=== PATIENT | male | born 1935 | race Caucasian/White ===

== ENCOUNTER 2016-04-29 09:15 | Day surgery (SDC) | payer BC, OTHER ==
[2016-04-23 14:06] VITALS: BMI 25.0
--- NOTE | 2016-04-23 14:46 | PAT Medication Instructions ---
Service Date Apr 23, 2016. Current Home Medication List Allopurinol (Zyloprim), 150 MG PO QAM Amlodipine (Norvasc), 10 MG PO QAM Aspirin (Aspirin Ec), 81 MG PO QAM Atorvastatin (Lipitor), 80 MG PO QAM Brimonidine Tartrate-Timolol M (Combigan), 1 DROP OPB BID Carvedilol (Coreg), 1 TAB PO BID Glipizide (Glipizide Er), 5 MG PO QAM Hydralazine HCl (Hydralazine HCl), 50 MG PO TID Insulin Aspart (Novolog Flexpen), SLIDING SCALE Insulin Glargine (Lantus Solostar), 12 UNITS SQ QAM Isosorbide Mononitrate Ext Rel (Imdur Ext Rel), 1 TAB PO QAM Levothyroxine Sodium (Levothyroxine Sodium), 1 TAB PO QAM Metolazone (Metolazone), 5 MG PO QAM Ocuvite Preservision (Ocuvite Preservision), 1 TAB PO DAILY Pantoprazole (Protonix), 40 MG PO DAILY Polyethylene Glycol 3350 (Miralax), 17 GM PO DAILY PRN for prn Travoprost (Travatan Z), 1 DROPS OP HS Warfarin Sod (Jantoven), 2.5 MG PO 3XWEEK Warfarin Sod (Jantoven), 1.25 MG PO 4XWEEK Medication Instructions For Your Scheduled Surgery - Instructions to be given by surgeon: Warfarin Sod (Jantoven), 2.5 MG PO 3XWEEK Warfarin Sod (Jantoven), 1.25 MG PO 4XWEEK - Hold the following medications the morning of surgery: Glipizide (Glipizide Er), 5 MG PO QAM Polyethylene Glycol 3350 (Miralax), 17 GM PO DAILY PRN for prn Metolazone (Metolazone), 5 MG PO QAM Ocuvite Preservision (Ocuvite Preservision), 1 TAB PO DAILY Insulin Aspart (Novolog Flexpen), SLIDING SCALE - Take the following medications the morning of surgery with a sip of water: Allopurinol (Zyloprim), 150 MG PO QAM Amlodipine (Norvasc), 10 MG PO QAM Aspirin (Aspirin Ec), 81 MG PO QAM Atorvastatin (Lipitor), 80 MG PO QAM Brimonidine Tartrate-Timolol M (Combigan), 1 DROP OPB BID Carvedilol (Coreg), 1 TAB PO BID Isosorbide Mononitrate Ext Rel (Imdur Ext Rel), 1 TAB PO QAM Levothyroxine Sodium (Levothyroxine Sodium), 1 TAB PO QAM Pantoprazole (Protonix), 40 MG PO DAILY Hydralazine HCl (Hydralazine HCl), 50 MG PO TID - Take the following medications as scheduled the night before surgery: Brimonidine Tartrate-Timolol M (Combigan), 1 DROP OPB BID Carvedilol (Coreg), 1 TAB PO BID Travoprost (Travatan Z), 1 DROPS OP HS Polyethylene Glycol 3350 (Miralax), 17 GM PO DAILY PRN for prn Hydralazine HCl (Hydralazine HCl), 50 MG PO TID Insulin Aspart (Novolog Flexpen), SLIDING SCALE - For Insulin Dependent Diabetic patients: Test blood sugar A.M. of surgery. - If Blood Sugar is GREATER THAN 150, take HALF of your regular dose of: Insulin Glargine (Lantus Solostar) - If Blood Sugar is LESS THAN 150, do not take any: Insulin Glargine ( Lantus Solostar) If you have any questions please call us at [phone] (Caryn Aleman PA-C) or [phone] or [phone]
--- NOTE | 2016-04-23 15:33 | DIAGNOSTIC IMAGING REPORT ---
CHEST 2 VIEWS ROUTINE HISTORY: Preop. COMPARISON: Chest 09/19/2015. FINDINGS: The heart remains mildly enlarged. Right jugular catheter terminates in the SVC. Left-sided dual-chamber pacemaker/defibrillator. No pneumothorax. No pleural effusions. Bilateral mid to lower lung zone interstitial thickening has improved. No new focal lung consolidations. IMPRESSION: 1. Improvement in the bilateral mid to lower lung zone interstitial thickening. This could represent residual congestive change or chronic interstitial lung disease. 2. Stable mild cardiomegaly. Electronically signed by: Jose G Rodriguez M.D. 04/23/2016 3:31 PM
[2016-04-23 15:36] LABS: BASO % 0.4 %; BASO ABS # 0.03 K/uL (0-0.2); COMPLETE YES; EOS % 5.6 %; HEMATOCRIT 39.2 % (42-52); IG% 0.4 %; LYMPH % 31.5 %; LYMPH ABS # 2.25 K/uL (1.2-3.4); MEAN CELL VOLUME 102.9 fL (80-100); MEAN CORPUSCULAR HEMOGLOBIN 35.2 pg (25-34); MEAN CORPUSCULAR HGB CONC 34.2 g/dl (32-36); MONO % 8.1 %; PLATELET COUNT 181 K/uL (130-400); RED BLOOD COUNT 3.81 M/uL (4.7-6.1); WHITE BLOOD COUNT 7.14 K/uL (4.8-10.8)
[2016-04-23 15:46] LABS: INR 2.4 (0.9-1.1); PARTIAL THROMBOPLASTIN RATIO 1.5; PROTHROMBIN TIME (PATIENT) 26.4 SECONDS (9.0-12.0)
[2016-04-23 16:10] LABS: CALCIUM 9.1 mg/dl (8.5-10.1); CREATININE 5.7 mg/dl (0.60-1.40); POTASSIUM 3.9 mmol/L (3.5-5.1)
[~2016-04-29] VITALS: Ht 180.3 cm; Wt 83.3 kg
--- NOTE | 2016-04-29 06:12 | History and Physical ---
History & Physical Chief Complaint: End stage renal disease History of Present Illness The patient is a 80 year old male with multiple medical problems, He had a wrist fistula done in the past which did not mature enough to be useable. Now admitted for creation of a new fistula. Allergies Coded Allergies: No Known Allergies (Unverified , 08/25/15) Surgical / Medical History Hx Cardiac Surgery: Yes (AICD) Hx Abdominal Surgery: No Hx Cancer Surgery: No Hx Thoracic Surgery: No Hx Orthopedic: Yes (Broken arm) Hx Urinary Tract Surgery: No HX Other Surgery: Yes (esophageal surgery, ) Past Medical/Surgical History: Kidney Disease Family History No significant family history Social History Smoking Status: Never Smoker Hx Tobacco Use In Past Year?: No Hx Alcohol Use - Type & Amnt: Yes (OCC BEER ) Hx Substance Use -Type & Amnt: No Review of Systems Constitutional: No chills, No fever, No malaise Skin: No change in color Eyes: No visual changes ENMT: No sore throat Respiratory:, No SOB or cough, No hemoptysis Cardiovascular: + edema, No chest pain, No intermittent claudication, No palpitations Gastrointestinal: No abdominal pain, No nausea, No vomiting Neurologic: No dizziness, No headache Physical Exam: Constitutional: General Apperance: well-nourished, well-developed, too thin Level of Distress: NAD, acutely ill, chronically ill Psychiatric: Mental Status: active & alert, normal mood, normal affect Orientation: oriented except where noted, to time, to place, to person Memory: recent memory abnormal, remote memory abnormal (vague, poor historian) Head: normocephalic, atraumatic Eyes: EOM: EOMI ENMT: normal ENT inspection, hearing grossly normal Neck: supple, trachea midline Lungs: Respiratory effort: dyspneic, tachypneic Auscultation: breath sounds normal, no expiratory wheezing, wet rales/ crackles Cardiovascular: Apical Impulse: not displaced Heart Auscultation: no murmurs, no rubs, no gallops, pertinent finding ( irregular) Peripheral Pulses: Pulses: full and equal, in all extremities except if noted Bruits: none appreciated Carotid Pulse: normal on the left, normal on the right Brachial Pulses: normal on the left, normal on the right Radial Pulse: normal on the left, normal on the right Ulnar Pulse: normal on the left, normal on the right Femoral Pulse: normal on the left, normal on the right Posterior Tibialis Pulse: decreased on the left, decreased on the right Dorsalis Pedis Pulse: decreased on the left, decreased on the right Abdomen: Bowel Sounds: normal Inspection & Palpation: soft, non-distended, no tenderness, guarding & rebound Musculoskeletal: normal strength (5/5 throughout), normal tone Extremities: Upper Right: no cyanosis, no edema, no varicosities Upper Left: no cyanosis, no edema, no varicosities Lower Right: no cyanosis, no varicosities, no palpable cord, edema, ulcers Lower Left: no cyanosis, no varicosities, no palpable cord, edema, ulcers Neurologic: Cranial Nerves: grossly intact Sensation: grossly intact ASSESSMENT and PLAN: End stage renal disease Plan: Patient admitted for a left antecubital cephalic vein fisutla creation. I have discussed the risks options and benefits of the procedure with the patient. The patient understands the risks options and benefits and agrees to the procedure.
[~2016-04-29 09:15] MED LIST: ALLO300T2 PO; AMLO-114 PO; APR50 PO; ASPI81TA28 PO; ATOR-26 PO; ATROPINE SULFATE 0.1 MG/ML 5ML SYR IV PRN; BRIM0.2S OPB; CARV25TA2 PO; CEFAZOLIN 2000 MG/60 ML D5W IV SCH; EpHEDrine SULFATE INJ 50 MG/ML AMP IV PRN; FENTANYL CITRATE INJ 50 MCG/1 ML 2 ML VIAL IV PRN; GLIP-197 PO; INSDGIPEN SQ; ISOS30TA3 PO; LEVO150T9 PO; MULT-190 PO; NVLGI/PEN; ONDANSETRON INJ 2 MG/ML 2 ML VIAL IV PRN; PANT40TA PO; POLY335019 PO; SODIUM CHLORIDE 0.9% 1000ML 1,000 ML IV SCH; TRAV0.00 OP; WARF2.5T8 PO; ZRX5 PO
[2016-04-29 09:30] VITALS: BP 119/59; PULSE 59; TEMP 36.6; O2SAT 97; Ht 180.3 cm; Wt 83.3 kg
[2016-04-29 10:13] LABS: INR 1.6 (0.9-1.1); PARTIAL THROMBOPLASTIN RATIO 1.3
[2016-04-29 10:22] LABS: BUN/CREATININE RATIO 9.1 (10-20); CALCIUM 8.3 mg/dl (8.5-10.1); CREATININE 4.3 mg/dl (0.60-1.40); POTASSIUM 3.8 mmol/L (3.5-5.1)
--- NOTE | 2016-04-29 10:41 | History & Physical Bridge Note ---
H&P Re-Evaluation Bridge Note: I have examined the patient, reviewed the History & Physical and in the interval since the performance of the History & Physical I have noted the following changes of clinical significance: No changes noted
[2016-04-29] MEDS ORDERED: FENTANYL CITRATE INJ 50 MCG/1 ML 2 ML VIAL ONE (10:58)
[2016-04-29] MEDS ORDERED: DEXTROSE 50% 50 ML SYR ONE (11:14)
[2016-04-29] MEDS ORDERED: PROPOFOL IV EMULSION 10 MG/ML 20 ML VIAL IV ONE (11:28)
[2016-04-29] MEDS ORDERED: ETOMIDATE 2 MG/ML 20 ML VIAL IV ONE (11:28)
--- NOTE | 2016-04-29 11:44 | [facility] Post Operative Brief Note ---
Immediate Operative Summary Operative Date Apr 29, 2016. Pre-Operative Diagnosis End-Stage Renal Disease, on Hemodialysis Post-Operative Diagnosis Same as preoperative Procedure(s) Performed Left Antecubital Cephalic Vein Arteriovenous Fistula Creation Surgeon Dr. Valeriy Dia Getterer Surgeon(s) Galilea Ha PA-C Estimated Blood Loss 10 Findings good thrill Specimens None per surgeon Anesthesia MAC Complication(s) None Disposition Recovery Room / PACU
[2016-04-29] MEDS ORDERED: EpHEDrine SULFATE 50MG/5ML SYR ONE (11:45)
[2016-04-29] MEDS ORDERED: OXYC-57 PO (11:46)
--- NOTE | 2016-04-29 11:47 | Discharge Instructions ---
Discharge Instructions Visit Reason for Visit: End Stage Renal Disease on Hemodialysis Discharge Discharge Diagnosis / Problem: End stage renal disease Discharge Goals Goal(s): Therapeutic intervention Activity Recommendations Activity Limitations: per Instructions/Follow-up section Anesthesia . Post Anesthesia Instructions: If you have had General Anesthesia or IV Sedation: * Do not drive today. * Resume driving when surgeon permits. * Do not make important decisions or sign legal documents today. * Call surgeon for: 1. Temperature elevations greater than 101 degrees F. 2. Uncontrollable pain. 3. Excessive bleeding. 4. Persistent nausea and vomiting. 5. Medication intolerance (nausea, vomiting or rash). * For nausea and vomiting use only clear liquids such as: tea, soda, bouillon until nausea subsides, then gradually increase diet as tolerated. * If you have any concerns or questions, call your surgeon's office. If physician is unavailable and it is an emergency, call 911 or go to the nearest emergency room. . Instructions / Follow-Up Instructions / Follow-Up Call [phone] to schedule a follow up appointment if one not already scheduled. ACTIVITY RECOMMENDATIONS: See Above SPECIAL CARE INSTRUCTIONS: Call your doctor if: * Temperature above 101 degrees * Pain not relieved by pain medicine ordered * There is increased drainage or redness from any incision * You have any unanswered questions or concerns. Diet Recommendations Recommended Home Diet: resume previous diet Procedures Procedures Performed: Left Antecubital Cephalic Vein Arteriovenous Fistula Creation Pending Studies Studies pending at discharge: no Medical Emergencies . Who to Call and When: Medical Emergencies: If at any time you feel your situation is an emergency, please call 911 immediately. . Non-Emergent Contact Non-Emergency issues call your: Surgeon . . "Provider Documentation" section prepared by Valeriy Dia.
[2016-04-29] MEDS ORDERED: MIX: 0.5% BUPIVACAINE W/EPI 1:200,000+1%LIDO 50:50 INJ ONE (12:06)
[2016-04-29] MEDS ORDERED: HEPARIN SOD (PORCINE) 1000 UNIT/ML 10 ML VIAL FLUSH ONE (12:06)
--- NOTE | 2016-04-29 12:14 | DIAGNOSTIC IMAGING REPORT ---
LEFT ELBOW SINGLE VIEW CLINICAL HISTORY: Incorrect needle count COMPARISON: None. DISCUSSION: There are vascular calcifications present. There are no radiopaque foreign bodies to indicate a retained needle. IMPRESSION: No needles are identified. Electronically signed by: Chris Guthrie M.D. 04/29/2016 12:12 PM
--- NOTE | 2016-04-29 12:38 | Anesthesiology Progress Note ---
Anesthesia Post Op Note Date & Time Apr 29, 2016 at 12:38 Vital Signs Vital Signs Past 12 Hours Date Time Temp Pulse Resp B/P Pulse Ox O2 Delivery O2 Flow Rate FiO2 04/29/16 12:25 62 16 110/52 96 Room Air 04/29/16 12:19 36.8 65 16 104/64 97 Room Air 04/29/16 09:30 36.6 59 20 119/59 97 Room Air 04/29/16 09:30 36.6 59 20 97 Room Air Notes Mental Status: alert / awake / arousable, participated in evaluation Pt Amnestic to Procedure: Yes Nausea / Vomiting: adequately controlled Pain: adequately controlled Airway Patency, RR, SpO2: stable & adequate BP & HR: stable & adequate Hydration State: stable & adequate Anesthetic Complications: no major complications apparent
[2016-04-29 12:45] VITALS: BP 103/54; PULSE 63; TEMP 36.3; O2SAT 95
--- NOTE | 2016-04-29 12:51 | OPERATIVE REPORT ---
DATE OF OPERATION: 04/29/2016 PREOPERATIVE DIAGNOSIS: End-stage renal disease. POSTOPERATIVE DIAGNOSIS: Same. PROCEDURE: Left antecubital cephalic vein arteriovenous fistula creation. SURGEON: Dr. Dia. DINKER: Galilea Hernandez PA-C. ANESTHETIC: MAC. PROCEDURE INDICATIONS: The patient is an 81-year-old gentleman with end-stage renal disease in need of an access. Left antecubital cephalic vein was recommended due to the vein size. He understood the risks, options and benefits and agreed to have this procedure. He did have wrist fistula done in the past which did not mature. The patient understood the risks, options, and benefits and agreed to have this procedure. DESCRIPTION OF PROCEDURE: The patient was taken to the operating room and placed in supine position. After left arm was prepped and draped in a sterile manner, local anesthetic was administered and transverse incision was made just below the antecubital crease. Cephalic vein was identified. It was of good caliber and patent. It was isolated a short distance. The brachial artery was then identified in the incision. It was of good size with minimal atherosclerotic changes. At that point, the artery was clamped proximally and distally. Longitudinal arteriotomy was then made. The vein was ligated distally and then divided. The vein was then anastomosed in an end-to-side fashion to the brachial artery using a running 6-0 Prolene suture in the usual vascular fashion. Prior to completing the closure, backbleeding and forward bleeding was allowed to occur and final few sutures were placed and securely tied. Clamps were then removed. The vein dilated up nicely. We could feel a thrill all the way to approximately 10 cm above the anastomosis. Adequate hemostasis was noted. The wound was closed in the usual fashion using running 3-0 Vicryl suture for the subcutaneous layer and running 4-0 subcuticular Vicryl suture for the skin edges and Dermabond for a dressing. There was a radial artery, ulnar artery and palmar arch Doppler was heard at the end of the procedure and the hand and fingers were pink. Galilea Hernandez assisted due to lack of resident availability. I attest to the content of the Intraoperative Record and any orders documented therein. Any exceptio ns are noted below.
[2016-04-29 13:00] VITALS: BP 105/54; PULSE 62; O2SAT 94
[2016-04-29 13:15] VITALS: BP 111/57; PULSE 62; TEMP 36.1; O2SAT 94
--- NOTE | 2016-04-29 15:34 | Progress Note ---
Progress Note I assisted Dr Dia with Alphonse Morrow's Left Antecubital Cephalic Vein Arteriovenous Fistula Creation on 04/29/16, d/t lack of resident availability.
[2016-05-15] MEDS ORDERED: CNT PO (13:10)
[2016-05-15] MEDS ORDERED: LEVO1TAB35 PO (13:10)
[2016-05-15] MEDS ORDERED: CLC100 PO (13:10)
[2016-05-15] MEDS ORDERED: OXYC-57 PO (13:10)
[2016-05-15] MEDS ORDERED: WARF2.5T8 PO (13:10)
[2016-05-15] MEDS ORDERED: CRG625 PO (13:10)
[2016-05-15] MEDS ORDERED: TYL325X PO (13:10)
[2016-05-15] MEDS ORDERED: TUMS PO (13:10)
[2016-06-12] MEDS ORDERED: CARV6.252 PO (10:53)
[2017-01-22] MEDS ORDERED: [UNRECOGNIZED DRUG - SUPPLY] TOP (11:21)
[2017-01-22] MEDS ORDERED: CALC500C3 PO (11:21)
[2017-01-22] MEDS ORDERED: LEVO175T3 PO (11:21)
[2017-01-22] MEDS ORDERED: NUTR-7 PO (11:21)
[2017-01-22] MEDS ORDERED: LIDO1CRE16 TOP (11:21)
[2017-01-22] MEDS ORDERED: [UNRECOGNIZED DRUG - CODE] TOP (11:21)
[2017-01-22] MEDS ORDERED: GUAI100S75 PO (11:24)
[2017-01-22] MEDS ORDERED: MENTOIN TOP (11:26)
[2017-02-05] MEDS ORDERED: CEPH500C2 PO (09:21)
[2017-03-27] MEDS ORDERED: VANC1INJ94 IV (11:20)
[2017-03-27] MEDS ORDERED: RCL25 PO (11:20)
[2017-03-27] MEDS ORDERED: NUTR-31 PO (11:20)
[2017-03-27] MEDS ORDERED: AMX500 PO (11:20)
[2017-03-27] MEDS ORDERED: OXYC-57 PO (11:20)
[2017-03-27] MEDS ORDERED: WARF1TAB PO (11:20)
== END 2016-04-29 13:45 | disposition home or self-care (01) ==
LOC: C.ACU 09:15
PROVIDERS: ATTEND Surgery Vascular Surgery
DX: N18.6 End stage renal disease (principal); Z79.4 Long term (current) use of insulin

== ENCOUNTER 2016-05-02 23:31 | Inpatient (IN) | payer BC, OTHER ==
[~2016-05-02] VITALS: Ht 180.3 cm; Wt 85.2 kg
[~2016-05-02 23:31] MED LIST changes: -ATROPINE SULFATE 0.1 MG/ML 5ML SYR IV PRN; -CEFAZOLIN 2000 MG/60 ML D5W IV SCH; -EpHEDrine SULFATE INJ 50 MG/ML AMP IV PRN; -FENTANYL CITRATE INJ 50 MCG/1 ML 2 ML VIAL IV PRN; -ONDANSETRON INJ 2 MG/ML 2 ML VIAL IV PRN; +OXYC-57 PO; -SODIUM CHLORIDE 0.9% 1000ML 1,000 ML IV SCH
[2016-05-02] MEDS ORDERED: ONDANSETRON INJ 2 MG/ML 2 ML VIAL IV STA (23:45)
[2016-05-02] MEDS ORDERED: SODIUM CHLORIDE 0.9% 250ML 250 ML IV STA (23:45)
[2016-05-03] VITALS (8 sets, daily range): BP systolic 91–120; BP diastolic 46–74; PULSE 60–67; TEMP 36.5–37.2; O2SAT 92–99; Ht 180.3 cm; Wt 85.2 kg
--- NOTE | 2016-05-03 | EMERGENCY ROOM VISIT NOTE ---
History Report prepared by Prema: Luis Alberto Lai Under the Supervision of: Dr. Sree Cotton M.D. First contact with patient: 23:38 Stated Complaint: FALL/SHOULDER PAIN History of Present Illness The patient is a 81 year old male who presents to the Emergency Room by EMS with complaints of constant right shoulder pain s/p fall occurring just prior to arrival. He did not hit his head or lose consciousness. He denies any chest pain, abdominal pain, back pain, lower arm pain, or neck pain. He notes that his right leg hurts as well after the fall. The patient is on Coumadin. He is a dialysis patient, and receives treatment on Tuesdays, and Saturdays. His most recent dialysis treatment was earlier today. Source of History: patient Onset: just prior to arrival Position: shoulder (right) Timing: constant Associated Symptoms: No LOC, No abdominal pain, No back pain, No chest pain , No headache, No neck pain Note: The patient has associated right leg pain. He denies any arm pain. Review of Systems See HPI for pertinent positives & negatives. A total of 10 systems reviewed and were otherwise negative. Past Medical & Surgical Medical Problems: (1) Acute on chronic systolic (congestive) heart failure (2) Acute renal failure (3) Acute renal failure superimposed on stage 4 chronic kidney disease (4) Altered mental status (5) Atrial fibrillation (6) Cardiorenal syndrome with renal failure (7) Congestive heart failure (8) Diabetes (9) Dysphagia (10) End stage renal disease (11) Ischemic cardiomyopathy Surgical Problems: (1) H/O excision of Zenker's diverticulum Family History No significant family history Social History Smoking Status: Former Smoker Drug Use: none Marital Status: Occupation Status: retired Current/Historical Medications Scheduled Allopurinol (Zyloprim), 150 MG PO QAM Amlodipine (Norvasc), 10 MG PO QAM Aspirin (Aspirin Ec), 81 MG PO QAM Atorvastatin (Lipitor), 80 MG PO QAM Brimonidine Tartrate-Timolol M (Combigan), 1 DROP OPB BID Carvedilol (Coreg), 1 TAB PO BID Glipizide (Glipizide Er), 5 MG PO QAM Hydralazine HCl (Hydralazine HCl), 50 MG PO TID Insulin Aspart (Novolog Flexpen), SLIDING SCALE Insulin Glargine (Lantus Solostar), 12 UNITS SQ QAM Isosorbide Mononitrate Ext Rel (Imdur Ext Rel), 1 TAB PO QAM Levothyroxine Sodium (Levothyroxine Sodium), 1 TAB PO QAM Metolazone (Metolazone), 5 MG PO QAM Ocuvite Preservision (Ocuvite Preservision), 1 TAB PO DAILY Pantoprazole (Protonix), 40 MG PO DAILY Travoprost (Travatan Z), 1 DROPS OP HS Warfarin Sod (Jantoven), 2.5 MG PO 3XWEEK Warfarin Sod (Jantoven), 1.25 MG PO 4XWEEK Scheduled PRN Oxycodone/Acetaminophen 5MG/325MG (Percocet 5MG/325MG), 1 TABLET PO Q4H PRN for Pain Polyethylene Glycol 3350 (Miralax), 17 GM PO DAILY PRN for prn Allergies Coded Allergies: No Known Allergies (Unverified , 04/23/16) Physical Exam Vital Signs Date Time Temp Pulse Resp B/P Pulse Ox O2 Delivery O2 Flow Rate FiO2 05/03/16 01:14 63 18 109/46 98 Nasal Cannula 3.0 05/03/16 00:48 65 18 102/46 97 Nasal Cannula 3.0 05/03/16 00:45 97 Nasal Cannula 3.0 05/03/16 00:45 87 Room Air 05/02/16 23:42 36.5 67 18 98/58 94 Room Air Physical Exam GENERAL: Patient is in no acute distress. HEENT: No acute trauma, normocephalic atraumatic, mucous membranes moist, no nasal congestion, no scleral icterus. NECK: No stridor, no adenopathy, no meningismus, trachea is midline. No posterior cervical spine tenderness or step-off. LUNGS: Clear to auscultation bilaterally, no wheeze, no rhonchi, breath sounds equal. HEART: Without murmurs gallops or rubs, regular rate and rhythm. ABDOMEN: Soft, nontender, bowel sounds positive, no hernias, no peritonitis. EXTREMITIES: Chronic lower extremity skin change without cellulitis. Pain with palpation of the right femur, mostly distally. No gross deformity. Right knee, right ankle and right foot are nontender. Tender to palpate right lateral shoulder and proximal humerus. Right clavicle is nontender, NVI distally in the right upper extremity. NEUROLOGIC: Oriented x 3, no acute motor or sensory deficits, no focal weakness. SKIN: No rash, no jaundice, no diaphoresis. Medical Decision & Procedures ER Provider Diagnostic Interpretation: Two View Right Femur and Two View Pelvis X-rays interpreted by me: Chronic change to the hip and pelvis. No acute fracture. Two View Right Humerus and Two View Right Shoulder X-rays interpreted by me: Right humeral neck fracture without shoulder dislocation. CT results per statrad and my review. CT HEAD: No intracranial hemorrhage, mass effect or calvarial fracture. Ventricles are within limits and midline. Chronic and involutional changes. Visualized paranasal sinuses, mastoids and orbits are within limits. CT C-SPINE: No fracture or malalignment. Multilevel spondylosis/discogenic change and bilateral foraminal stenosis. Osseous fusion C3-4 and partial at C2-3. Bilateral right greater than left heavy carotid calcification and there may be associated luminal stenosis. May follow-up with nonemergent carotid Doppler if not previously evaluated . Tunneled right dialysis catheter and AICD noted. Laboratory Results 05/03/16 00:46 05/03/16 00:46 Test 05/03/16 00:46 05/03/16 02:20 Red Blood Count 3.30 M/uL (4.7-6.1) Mean Corpuscular Volume 102.7 fL (80-100) Mean Corpuscular Hemoglobin 35.5 pg (25-34) Mean Corpuscular Hemoglobin Concent 34.5 g/dl (32-36) RDW Standard Deviation 56.9 fL (36.4-46.3) RDW Coefficient of Variation 15.1 % (11.5-14.5) Mean Platelet Volume 10.0 fL (7.4-10.4) Anion Gap 10.0 mmol/L (3-11) Est Creatinine Clear Calc Drug Dose 15.3 ml/min Estimated GFR () 15.5 Estimated GFR (Non- 13.4 BUN/Creatinine Ratio 9.3 (10-20) Calcium Level 8.4 mg/dl (8.5-10.1) Laboratory results reviewed by me. Medications Administered Medications (Trade) Dose Ordered Sig/Summer Route Start Time Stop Time Status Last Admin Dose Admin Sodium Chloride (Nss 250ml) 250 ml @ 999 mls/hr Q16M STAT IV 05/02/16 23:45 05/03/16 00:00 DC 05/03/16 00:34 999 MLS/HR Morphine Sulfate (MoRPHine SULFATE INJ) 4 mg Q15M PRN IV 05/02/16 23:45 05/16/16 23:44 05/03/16 01:09 4 MG Ondansetron HCl (Zofran Inj) 4 mg NOW STAT IV 05/02/16 23:45 05/02/16 23:49 DC 05/03/16 00:35 4 MG ECG Indication: other (fall) Rate (beats per minute): 91 Rhythm: other (demand pacing with an underlying atrial fibrillation) Findings: PVC, other (significant baseline artifact) ED Course 2338: The patient was evaluated in room A3. A complete history and physical exam was performed. 2345: Ordered Zofran Inj 4 mg IV, Morphine Sulfate 4 mg IV, NSS 250 mL @ 999 mL/ hr IV. 0053: I checked in on the patient. He getting ready to go to CT. 0222: Upon reexamination the patient is resting comfortably. I discussed results and treatment plan with the patient. He verbalizes agreement and understanding. The patient will be evaluated for further management. Medical Decision The patient is a 81 year old male who presents to the ED with complaints of right shoulder pain s/p fall. Differential diagnoses considered include right shoulder fracture/dislocation, intracranial bleeding, cervical spine fracture, pelvis/right humerus fracture, dehydration, dysrhythmia, anemia, and electrolyte imbalance. There is no leukocytosis. The patient is mildly anemic but this is baseline and does not require emergent correction. Renal panel testing shows the need for dialysis, there is no significant electrolyte abnormally requiring correction. EKG shows a demand pacemaker with underlying A. fib, significant artifact on the EKG was noted. Brain CT shows no acute bleed or mass effect. C -spine CT shows no acute fracture. Right shoulder and right humerus films show a humeral neck fracture, no shoulder dislocation. Pelvis and right femur films show some chronic change to the hips and pelvis but I do not see any acute fracture. The patient was placed in a right arm sling. The patient received IV morphine for pain, IV Zofran for nausea. He was given a small dose of IV saline. The patient is more comfortable now that he has been medicated. I talked with him and his . The patient cannot go home with a fractured arm as he needs his arm to walk-he typically uses a walker. I spoke with field nurse case manager. The patient will be brought into the hospital for now, he will likely need to be transferred, once cleared, to a rehabilitation facility. Consults Time Called: 17 Consulting Physician: Dr. Nova JIN Returned Call: [phone] Discussed the patient's case. The patient will be evaluated for further management. Impression Primary Impression: Closed fracture of right proximal humerus Additional Impressions: Right leg pain, Fall Scribe Attestation The scribe's documentation has been prepared under my direction and personally reviewed by me in its entirety. I confirm that the note above accurately reflects all work, treatment, procedures, and medical decision making performed by me. Departure Information Dispostion Being Evaluated By Hospitalist Referrals Vivek Ramirez M.D. (PCP)
[2016-05-03] MEDS: MoRPHine SULFATE 4 MG/ML 1 ML CARP\\VIAL IV PRN ×2 (00:35→01:09)
[2016-05-03 00:57] LABS: HEMATOCRIT 33.9 % (42-52); MEAN CELL VOLUME 102.7 fL (80-100); MEAN CORPUSCULAR HEMOGLOBIN 35.5 pg (25-34); MEAN CORPUSCULAR HGB CONC 34.5 g/dl (32-36); PLATELET COUNT 148 K/uL (130-400); WHITE BLOOD COUNT 10.55 K/uL (4.8-10.8)
[2016-05-03 01:15] LABS: BUN/CREATININE RATIO 9.3 (10-20); CALCIUM 8.4 mg/dl (8.5-10.1); CREATININE 3.9 mg/dl (0.60-1.40); POTASSIUM 4.1 mmol/L (3.5-5.1)
[2016-05-03 02:55] LABS: INR 2.2 (0.9-1.1); PARTIAL THROMBOPLASTIN RATIO 1.9; PROTHROMBIN TIME (PATIENT) 24.1 SECONDS (9.0-12.0)
--- NOTE | 2016-05-03 03:28 | History and Physical ---
History & Physical Date & Time of Service: May 03, 2016 at 03:10 Chief Complaint: Fall/Shoulder Pain Primary Care Physician: Vivek Ramirez M.D. History of Present Illness Source: patient, family 81 y/o male with a broad array of medical issues including systolic CHF (25%), CAD, AF, ESRD - on dialysis - post fistula surgery 04/30 - presents following fall with complaint of persistent R shoulder pain. Imaging in the ER elucidated a R displaced humeral neck fracture. This is nonsurgical per orthopedics however the pt is looked after by his and has limited mobility requiring a cane prior to the above event. He will be admitted therefore for pain management and will likely need placement in a rehab facility. He denies any specific symptoms preceding his fall such as SOB, CP or lightheadedness. He is currently prescribed Coumadin for AF and has an elevated INR on admission. He denies significant head trauma. Past Medical/Surgical History Medical Problems: (1) Altered mental status Status: Chronic (2) Atrial fibrillation Status: Chronic (3) Congestive heart failure Status: Chronic Chronic systolic - EF 20% (4) Diabetes Status: Chronic 5) Pacer/AICD 6) ESRD - dialysis 7) Hypothyroid 8) HTN 9) HPL 10) LGI bleed 11) CAD Fistula at wrist recently failed to mature - additional attempt completed Family History No significant family history Social History Quit smoking 55 years prior - retired form [employer] at [facility] Smoking Status: Former Smoker Drug Use: none Marital Status: Occupational Status: retired Multi-Drug Resistant Organisms History of MDRO: No Allergies Coded Allergies: No Known Allergies (Unverified , 04/23/16) Home Medications Scheduled Allopurinol (Zyloprim), 150 MG PO QAM Amlodipine (Norvasc), 10 MG PO QAM Aspirin (Aspirin Ec), 81 MG PO QAM Atorvastatin (Lipitor), 80 MG PO QAM Brimonidine Tartrate-Timolol M (Combigan), 1 DROP OPB BID Carvedilol (Coreg), 1 TAB PO BID Glipizide (Glipizide Er), 5 MG PO QAM Hydralazine HCl (Hydralazine HCl), 50 MG PO TID Insulin Aspart (Novolog Flexpen), SLIDING SCALE Insulin Glargine (Lantus Solostar), 12 UNITS SQ QAM Isosorbide Mononitrate Ext Rel (Imdur Ext Rel), 1 TAB PO QAM Levothyroxine Sodium (Levothyroxine Sodium), 1 TAB PO QAM Metolazone (Metolazone), 5 MG PO QAM Ocuvite Preservision (Ocuvite Preservision), 1 TAB PO DAILY Pantoprazole (Protonix), 40 MG PO DAILY Travoprost (Travatan Z), 1 DROPS OP HS Warfarin Sod (Jantoven), 2.5 MG PO 3XWEEK Warfarin Sod (Jantoven), 1.25 MG PO 4XWEEK Scheduled PRN Oxycodone/Acetaminophen 5MG/325MG (Percocet 5MG/325MG), 1 TABLET PO Q4H PRN for Pain Polyethylene Glycol 3350 (Miralax), 17 GM PO DAILY PRN for prn Review of Systems Constitutional: No chills, No fever, No sweats Eyes: No worsening of vision ENT: No hearing loss, No nasal symptoms, No unusual epistaxis Respiratory: No cough, No sputum, No wheezing Cardiovascular: No PND, No chest pain, No orthopnea Abdomen: No nausea, No pain, No vomiting Musculoskeletal: + joint pain, + muscle pain, + problem reported (R shoulder pain) Genitourinary - Male: No dysuria, No hematuria, No urinary frequency, No urinary urgency Neurologic: + balance problems (Chronic), No memory loss, No paralysis Psychiatric: No depression symptoms Endocrine: No fatigue Integumentary: No rash Allergic / Immunologic: No environmental allergies Physical Exam Vital Signs Date Time Temp Pulse Resp B/P Pulse Ox O2 Delivery O2 Flow Rate FiO2 05/03/16 02:48 77 18 92 Nasal Cannula 3.0 05/03/16 01:14 63 18 109/46 98 Nasal Cannula 3.0 05/03/16 00:48 65 18 102/46 97 Nasal Cannula 3.0 05/03/16 00:45 97 Nasal Cannula 3.0 05/03/16 00:45 87 Room Air 05/02/16 23:42 36.5 67 18 98/58 94 Room Air General Appearance: WD/WN, no apparent distress, + pertinent finding (Plesent elderly male in no distress - AAO x 3 ) Head: normocephalic, atraumatic Eyes: normal inspection, EOMI ENT: normal ENT inspection, pharynx normal Neck: supple, no JVD Respiratory/Chest: chest non-tender, lungs clear, normal breath sounds, no respiratory distress, no accessory muscle use, + pertinent finding ( Subcutaneous access line L chest) Cardiovascular: regular rate, rhythm, + systolic murmur Abdomen/GI: normal bowel sounds, non tender, soft Extremities/Musculoskelatal: + pertinent finding (pain and swelling R proximal UE - chronic LE stasis / hyperpigmantation - pulses not detectable - adequate capillary return - L anticubital area with bruising and raw-appearing incision due to recent dialysis fistula) Neurologic/Psych: casey saw operator II-XII nml as tested, no motor/sensory deficits, alert, normal mood/affect, normal reflexes, oriented x 3 Skin: + pertinent finding (Chronic LE stasis hyperpigmentation - L anticubital area with bruising and raw-appearing incision due to recent dialysis fistula) Diagnostics Laboratory Results Results Past 24 Hours Test 05/03/16 00:46 05/03/16 02:20 Range/Units White Blood Count 10.55 4.8-10.8 K/uL Red Blood Count 3.30 4.7-6.1 M/uL Hemoglobin 11.7 14.0-18.0 g/dL Hematocrit 33.9 42-52 % Mean Corpuscular Volume 102.7 80-100 fL Mean Corpuscular Hemoglobin 35.5 25-34 pg Mean Corpuscular Hemoglobin Concent 34.5 32-36 g/dl RDW Standard Deviation 56.9 36.4-46.3 fL RDW Coefficient of Variation 15.1 11.5-14.5 % Platelet Count 148 130-400 K/uL Mean Platelet Volume 10.0 7.4-10.4 fL Sodium Level 139 136-145 mmol/L Potassium Level 4.1 3.5-5.1 mmol/L Chloride Level 100 98-107 mmol/L Carbon Dioxide Level 29 21-32 mmol/L Anion Gap 10.0 3-11 mmol/L Blood Urea Nitrogen 36 7-18 mg/dl Creatinine 3.90 0.60-1.40 mg/dl Est Creatinine Clear Calc Drug Dose 15.3 ml/min Estimated GFR () 15.5 Estimated GFR (Non- 13.4 BUN/Creatinine Ratio 9.3 10-20 Random Glucose 132 70-99 mg/dl Calcium Level 8.4 8.5-10.1 mg/dl Prothrombin Time 24.1 9.0-12.0 SECONDS Prothromb Time International Ratio 2.2 0.9-1.1 Activated Partial Thromboplast Time 49.8 21.0-31.0 SECONDS Partial Thromboplastin Ratio 1.9 Diagnostic Radiology XR - R minimally displaced humeral neck Fx XR pelvis negative CT spine negative for acute findings EKG AF, PVCs Impression Assessment and Plan 89 y/o male with a broad array of medical issues including systolic CHF (25%), CAD, AF, ESRD - on dialysis - post fistula surgery 04/30 - presents following fall with complaint of persistent R shoulder pain. Imaging in the ER elucidated a R displaced humeral neck fracture. This is nonsurgical per orthopedics however the pt is looked after by his and has limited mobility requiring a cane prior to the above event. He will be admitted therefore for pain management and will likely need placement in a rehab facility. He denies any specific symptoms preceding his fall such as SOB, CP or lightheadedness. He is currently prescribed Coumadin for AF and has an elevated INR on admission. He denies significant head trauma. 1) R humeral fracture - We will consult ortho to evaluate if this requires reduction although it is likely non-surgical. We will order adequate anelgesia and request a PT and OT eval as he will likely require transfer to a rehab facility 2) CHF - currently euvolemic - cont diuretics, B harry 3) CAD - denies CP - cont ASA, statin, Imdur, B harry 4) DM -,placed on sliding scale in hospital 5) HTN - cont Norvasc, Imdur, Hydralazine, Carvedilol 6) ESRD - will require inpt dialysis Wednesday - consult Nephrology 7) AF - rate controlled - on Coumadin - held due to fall pending AM reassessment - cont Carvedilol 8) Hypothyroid - cont Synthroid 9) Gout - cont Allopurinol Total time for this admit including extensive record review, discussion with ER attending and pt - review of labs, imaging, med rec - 46 min
[2016-05-03] MEDS ORDERED: ALUMINUM/MAGNESIUM/SIMETH (MAALOX MAX) 30 ML UDC PO PRN (03:30)
[2016-05-03] MEDS ORDERED: MAGNESIUM HYDROXIDE SUSP 30 ML UDC PO PRN (03:30)
[2016-05-03] MEDS ORDERED: ONDANSETRON INJ 2 MG/ML 2 ML VIAL IV PRN (03:30)
[2016-05-03] MEDS ORDERED: MoRPHine SULFATE 2 MG/ML CARP IV PRN (03:30)
[2016-05-03] MEDS ORDERED: ZOLPIDEM TARTRATE 5 MG TAB PO PRN (03:30)
[2016-05-03] MEDS ORDERED: OXYCODONE/ACETAMINOPHEN 5-325 TAB PO PRN (03:30)
[2016-05-03] MEDS ORDERED: POLYETHYLENE (MIRALAX) 17 GM PACK PO PRN (03:30)
--- NOTE | 2016-05-03 05:21 | Progress Note ---
Progress Note Called for unresponsive episode which occurred after vomiting and lasted 30 sec When arrived to examine pt he was back at baseline - initially a good BP reading could not be obtained however this was measured at 135/80 in the R forearm - registers very low in his LEs due to PVD As pt is post-fall on Coumadin he will be sent for a repeat CT head - we will transfer to tele to monitor for arrhythmias - most likely Dx is vasovagal however due to vomiting however this would be more likely to occur if there was rising ICP Results are pending - plan discussed with nursing
[2016-05-03] MEDS ORDERED: GLUCAGON FOR INJ 1 MG VIAL SQ PRN (06:00)
[2016-05-03] MEDS ORDERED: DEXTROSE 50% 50 ML SYR IV PRN (06:00)
[2016-05-03] MEDS ORDERED: GLUCOSE 10 TABS/TUBE PO PRN (06:00)
[2016-05-03] MEDS ORDERED: GLUCOSE 40% GEL 15 GM TUBE PO PRN (06:00)
[2016-05-03] MEDS: LEVOTHYROXINE 150 MCG TAB PO SCH (06:29)
--- NOTE | 2016-05-03 06:43 | DIAGNOSTIC IMAGING REPORT ---
HEAD CT NONCONTRAST CT DOSE: 1185.63 mGy.cm HISTORY: fall, on coumadin TECHNIQUE: Multiaxial CT images of the head were performed without the use of intravenous contrast. Automated exposure control was utilized for this study. Comparison: None. Findings: The paranasal sinuses and mastoid air cells are clear. The calvarium and skull base are intact. There is no mass, hematoma, midline shift, acute infarct. White matter hypodensity is nonspecific but suggestive of microvascular ischemic change. The ventricles and sulci demonstrate mild age-related involutional changes. Impression: No acute intracranial abnormality. Atrophy and microvascular ischemic changes. Electronically signed by: Jose G Rodriguez M.D. 05/03/2016 6:42 AM Dictated Date/Time: 05/03/2016 6:40 AM
--- NOTE | 2016-05-03 06:46 | DIAGNOSTIC IMAGING REPORT ---
HEAD CT NONCONTRAST CT DOSE: 614.27 mGy.cm HISTORY: Altered mental status after fall - on coumadin - repeat scan TECHNIQUE: Multiaxial CT images of the head were performed without the use of intravenous contrast. Automated exposure control was utilized for this study. Comparison: Head CT 05/03/2016. Findings: A retention cyst within the right maxillary sinus. Trace fluid within the right frontal sinus. The mastoid air cells are clear. The calvarium and skull base are intact. There is no mass, hematoma, midline shift, acute infarct. White matter hypodensity is nonspecific but suggestive of microvascular ischemic change. The ventricles and sulci demonstrate mild age-related involutional changes. Impression: No significant change compared to the prior study. No acute intracranial abnormality. Electronically signed by: Jose G Rordiguez M.D. 05/03/2016 6:44 AM Dictated Date/Time: 05/03/2016 6:42 AM
--- NOTE | 2016-05-03 06:52 | DIAGNOSTIC IMAGING REPORT ---
CERVICAL SPINE CT CT DOSE: HISTORY: Neck pain. fall, distracting pain TECHNIQUE: Multiaxial CT images of the cervical spine were performed and reformatted in the sagittal and coronal plane without the use of contrast. COMPARISON: None. FINDINGS: No fractures. No subluxation. Prevertebral soft tissues and the C1-C2 interval are intact. No pneumothorax. Mild reversal of the normal lordotic curvature. Fusion of the C2-C4 vertebral bodies and facets. Severe disc space narrowing at C4-C5, C5-C6, and C6-C7 with endplate osteophytes. This results in mild to moderate central canal narrowing at these levels. There is also mild bilateral neural foraminal narrowing seen throughout the cervical spine. Heavily calcified bilateral carotid bifurcation. Right jugular catheter is noted. IMPRESSION: No acute fracture or subluxation within the cervical spine. Degenerative changes as described above. Heavily calcified bilateral carotid bifurcation with probable bilateral internal carotid artery stenosis. Electronically signed by: Jose G Rodriguez M.D. 05/03/2016 6:50 AM Dictated Date/Time: 05/03/2016 6:44 AM
[2016-05-03] MEDS: CEROVITE ADV FORMULA TAB PO SCH (07:57)
[2016-05-03] MEDS: METOLAZONE 5 MG TAB PO SCH (07:58)
[2016-05-03] MEDS: ISOSORBIDE MONONITRATE 30 MG TABCR PO SCH (07:58)
[2016-05-03] MEDS: ATORVASTATIN 40 MG TAB PO SCH (07:58)
[2016-05-03] MEDS: CARVEDILOL 25 MG TAB PO SCH ×2 (07:58→21:00)
[2016-05-03] MEDS: ASPIRIN 81 MG ECTAB PO SCH (07:59)
[2016-05-03] MEDS: ALLOPURINOL 300 MG TAB PO SCH (07:59)
[2016-05-03] MEDS: AMLODIPINE BESYLATE 5 MG TAB PO SCH (07:59)
[2016-05-03] MEDS: PANTOprazole SOD 40 MG TAB PO SCH (07:59)
[2016-05-03] MEDS ORDERED: DOPamine 400MG / 250ML D5W IV ONE (08:21)
[2016-05-03] MEDS ORDERED: SODIUM CHLORIDE 0.9% 10ML FLUSH IV ONE (08:21)
--- NOTE | 2016-05-03 08:43 | DIAGNOSTIC IMAGING REPORT ---
RIGHT SHOULDER MIN 2 VIEWS ROUTINE, RIGHT HUMERUS MIN 2 VIEWS ROUTINE CLINICAL HISTORY: Fall with right shoulder and arm pain. COMPARISON STUDY: None. FINDINGS: Suboptimal study as the patient moved and is limited. There is a right humeral neck fracture which extends through the greater tuberosity humeral head. The fracture is impacted. No dislocation. The distal humerus, right clavicle, and visualized scapula are intact. No definite dislocation. IMPRESSION: An impacted right humeral neck fracture which extends through the greater tuberosity of the humeral head. Electronically signed by: Jose G Rodriguez M.D. 05/03/2016 8:42 AM Dictated Date/Time: 05/03/2016 8:39 AM
--- NOTE | 2016-05-03 08:48 | DIAGNOSTIC IMAGING REPORT ---
PELVIS 1 OR 2 VIEW ROUTINE, RIGHT FEMUR 2 VIEWS ROUTINE CLINICAL HISTORY: Fall. Right hip pain. COMPARISON STUDY: None. FINDINGS: No acute fracture or dislocation within the pelvis or left hip. The sacrum appears intact. Vascular calcifications are noted. The bones are osteopenic. Abnormal appearance and deformity to the right femoral head/neck. IMPRESSION: 1. Abnormal appearance and deformity of the right femoral head/neck. This is consistent with a right femoral neck fracture. 2. No acute fracture identified within the pelvis or left hip. Electronically signed by: Jose G Rodriguez M.D. 05/03/2016 8:46 AM Dictated Date/Time: 05/03/2016 8:42 AM
[2016-05-03] MEDS: INSULIN ASPART 100 UNITS/ML 3 ML PEN SC SCH ×4 (09:25→20:21)
[2016-05-03] MEDS: INSULIN GLARGINE SOLOSTAR 100 UNITS/ML 3 ML PEN SQ SCH (09:27)
--- NOTE | 2016-05-03 13:09 | DIAGNOSTIC IMAGING REPORT ---
PELVIS CT CT DOSE: 2371.21 mGy.cm HISTORY: Right hip pain after fall. Assess for femoral neck fx TECHNIQUE: Multiaxial CT images of the pelvis were performed and reformatted in the sagittal and coronal plane without the use of contrast. COMPARISON: Pelvis and right femur 05/03/2016. FINDINGS: Confirmation of the impacted right femoral neck fracture. This demonstrates up to 1 cm of superior displacement. There is also mild posterior angulation of the femur. No dislocation. The visualized pelvic bones and left hip are intact. Bilateral L5 spondylolysis. Tiny fat-containing umbilical hernia. Subcutaneous contusion within the right lateral hip. Small focal dissection within the distal abdominal aorta. This is likely chronic. The abdominal aorta is normal and caliber. Normal bladder. Colonic diverticulosis. IMPRESSION: 1. Confirmation of the impacted and mildly displaced right femoral neck fracture. No dislocation. 2. Subcutaneous contusion within the right lateral hip. 3. No acute fracture or dislocation within the pelvis or left hip. 4. Colonic diverticulosis. 5. Small focal dissection within the normal caliber distal abdominal aorta. This is likely chronic. Electronically signed by: Jose G Rodriguez M.D. 05/03/2016 1:07 PM Dictated Date/Time: 05/03/2016 12:58 PM
--- NOTE | 2016-05-03 14:12 | Family Medicine Progress Note ---
Progress Note Date of Service May 03, 2016. Subjective Pt evaluation today including: conversation w/ patient, physical exam, chart review, lab review, conversation w/ residential sales consultant, review of inpatient medication list Pain: 6/10 PO Intake: good Patient lying flat in bed and in mild amount of distress. Was just given a dose of Morphine and he says he hopes that this helps with his pain. He is urinating regularly. He was also able to eat while in bed. He rates his current pain as a 6/10 in severity. 5 minutes prior to me visiting him he received his IV morphine. Ortho were consulted with regards to his fractures as CT showed a partially displaced femoral neck fracture. Still deciding if patient is surgical candidate. Constitutional: No chills, No fever, No sweats Respiratory: No cough, No dyspnea at rest, No shortness of breath, No sputum , No wheezing Cardiovascular: No chest pain, No edema, No orthopnea, No palpitations Abdomen: No constipation, No diarrhea, No nausea, No pain, No vomiting Musculoskeletal: + see HPI Objective Physical Exam General Appearance: WD/WN, + mild distress, + pertinent finding (patient is lying flat in bed and his right arm is in a sling. ) Respiratory/Chest: chest non-tender, lungs clear, normal breath sounds, no respiratory distress, no accessory muscle use Cardiovascular: regular rate, rhythm, no edema, no JVD, + systolic murmur Abdomen: normal bowel sounds, non tender, soft Extremities: non-tender, no pedal edema, + pertinent finding (Right extremity is shortened and externally rotated, significant venous stasis of both extremities, L arm fistula) Neurologic/Psychiatric: alert, normal mood/affect, oriented x 3 Skin: + pertinent finding (diffuse bruises all over his body) Assessment and Plan 81 y/o male with PMH of CHF, CAD, AF, ESRD who fell at home and subsequently had a right displaced humeral fracture as well as a partially displaced R femoral neck fracture. R humeral fracture and R femoral fracture - Ortho consulted - Still deciding if patient is surgical candidate. (not getting surgery of humerus but possibly getting surgery for hip) - IV morphine 2mg Q3 - PT/OT ordered ESRD (on dialysis) - baseline creatinine between 3-5 - currently 3.9 - follow BMP - nephro consulted Afib - Rate controlled with carvedilol - Coumadin held in prep for surgery - INR 2.2, repeat in AM with possibility of bridge CHF - Systolic Heart Failure with EF of 20-25 - Currently euvolemic - Continue metolazone and Carvedilol - Patient on telemetry CAD - continue ASA, statin, imdur and bblocker - talk to ortho for possible hold of aspirin DM - insulin sliding scale - on insulin at home HTN - continue norvasc, imdur, hydralazine and carvedilol Hypothyroid - synthroid Gout - allopurinol Dispo - Full code - Will need rehab facility upon d/c - pt/ot ordered Resident Physician Supervision Note: I interviewed and examined the patient. Discussed with Dr. Joseph and agree with findings and plan as documented in the note. Any exceptions or clarifications are listed here: 81-year-old male with history of end-stage renal disease on hemodialysis and low output heart failure status post biventricular pacing is admitted earlier today after suffering a fall in his home. Unfortunately he has an impacted right humeral neck fracture and an an impacted and mildly displaced right femoral neck fracture. He has been seen by orthopedics and a CT scan has been ordered to better determine if he would benefit from surgical repair of the right femoral neck fracture. Echocardiogram from August 2015 reveals an ejection fraction around 25%. A repeat echocardiogram is ordered. He is currently on hemodialysis 2 days per week. His last dialysis was Wednesday. Nephrology has been consulted. The patient is on Coumadin for atrial fibrillation. He is currently therapeutic. At this point will hold his Coumadin pending a decision regarding surgery. If it's done within the next 24-48 hours, he will likely need vitamin K for reversal. Otherwise, we'll continue to monitor INR and start Lovenox as bridge should his INR dropped below 1.8. Documented By: Harshil Swenson Continued [facility] stay due to: ambulation difficulties, multiple IV medications needed, home environment unsafe for pt
[2016-05-03] MEDS: TRAVOPROST Z 0.004% OPH SOLN 2.5 ML BTL OP SCH (21:00)
[2016-05-04] VITALS (8 sets, daily range): BP systolic 110–130; BP diastolic 55–78; PULSE 61–94; TEMP 36.3–36.8; O2SAT 91–97
--- NOTE | 2016-05-04 | ORTHOPEDIC CONSULTATION ---
DATE OF CONSULTATION: 05/03/2016 CHIEF COMPLAINT: Right shoulder and right hip pain. HISTORY OF PRESENT ILLNESS: The patient is an 81-year-old male with fairly extensive past medical history including CHF with ejection fraction 20%, coronary artery disease, AFib, end-stage renal disease, on dialysis. He has recently received a new fistula on the left upper extremity on April 30. He had a fall, landing onto the right side. He is complaining of pain in the proximal humerus as well as the right hip. He ambulated prior to the fall. He occasionally would use a walker and occasionally not use anything. He was ambulating without difficulty prior to the most recent fall. He has been on Coumadin for atrial fibrillation. PAST MEDICAL HISTORY: AFib, congestive heart failure, end-stage renal disease, coronary artery disease, diabetes, status post pacemaker placement, hypothyroidism, hypertension, hyperlipidemia. PAST SURGICAL HISTORY: Includes recent attempts at fistulas, one on left wrist and another on the 5th and more proximally in the arm. ALLERGIES: No known drug allergies. SOCIAL HISTORY: Quit smoking 55 years previously. MEDICATIONS: Allopurinol, Norvasc, aspirin, Lipitor, Combigan, Coreg, glipizide, hydralazine, NovoLog, Lantus, Imdur, levothyroxine, Ocuvite, Protonix, Travatan, warfarin and metolazone. REVIEW OF SYSTEMS: As above. PHYSICAL EXAMINATION: VITAL SIGNS: Afebrile. Vital signs stable. GENERAL: Alert and oriented x3, no acute distress. Mood and affect normal. He is pleasant, cooperative with examination. HEENT: Atraumatic. CHEST: Clear. CARDIOVASCULAR: Regular rate and rhythm. ABDOMEN: Soft. EXTREMITIES: Examination of right upper extremity, palpable radial pulse. Light touch sensation and motor function is intact in the median, ulnar and radial nerve distributions. Sensation is intact over the axillary nerve distribution. He has swelling and tenderness of the proximal humerus. Examination of contralateral arm, he has a fairly extensive ecchymosis, status post new fistula placement. Examination of the right lower extremity, he has significant pain with examination of the right leg, the location of the right hip. Motor function in the right lower extremity is intact distally. He has chronic discoloration from level of the calf down bilaterally, consistent with chronic peripheral vascular disease. No significant lower extremity edema is noted. X-rays of the proximal humerus, right shoulder: Mildly impacted proximal humerus fracture, minimal displacement and overall in acceptable alignment. X-ray of the pelvis and right femur on the frogleg lateral, evidence of anterior femoral neck fracture. No distal fracture is noted. On the AP, he has evidence of old chronic deformity of the femoral head and significant osteoarthritic change of both the femoral head as well as the acetabulum. ASSESSMENT: Right proximal humerus fracture and right femoral neck fracture. PLAN: With regards to the proximal humerus fracture, I think this is something that can be treated nonoperatively. X-rays show the fracture is in good alignment and no significant displacement to it. There is some comminution in the region and some mild impaction, but overall maintains acceptable alignment and I would continue sling immobilization for this. Question is proper treatment for femoral neck fracture. I am going to obtain a CT scan of the femoral neck for better appreciation of this fracture pattern as well as the positioning and condition of the femoral head. He has fairly significant past medical history, fairly poor ejection fraction of approximately 20%, on chronic hemodialysis as well as chronic warfarin treatment. His current INR is 1.9. We discussed the risks, benefits and alternatives to both nonoperative and operative management for the fracture. He is pretty painful even on examination of contralateral extremities, he has pain in the right hip. So I think mobilization and nonoperative treatment would be challenging in the right hip. He would likely end up being fairly immobile secondary to pain and need for nonweightbearing on the right femoral neck. However, he is a relatively poor surgical candidate, given his other medical comorbidities. Given the alignment of the femoral neck and head, do not know whether this would be amenable to percutaneous screw fixation or if he would be better off with an arthroplasty. So we are going to obtain a CT scan and get a better appreciation of the fracture pattern as well as the status of his femoral head and acetabulum. We are going to tentatively put him as n.p.o. for possible surgery tomorrow. I do not know whether he would be cleared from medical standpoint and currently the patient is hesitant to proceed with anything from a surgical standpoint, secondary to his other medical conditions.
[2016-05-04] MEDS: LEVOTHYROXINE 150 MCG TAB PO SCH (05:41)
[2016-05-04 06:07] LABS: MEAN CELL VOLUME 103.7 fL (80-100); MEAN CORPUSCULAR HEMOGLOBIN 35.8 pg (25-34); MEAN CORPUSCULAR HGB CONC 34.5 g/dl (32-36); MEAN PLATELET VOLUME 10.6 fL (7.4-10.4); PLATELET COUNT 129 K/uL (130-400); RED BLOOD COUNT 2.99 M/uL (4.7-6.1); WHITE BLOOD COUNT 8.05 K/uL (4.8-10.8)
[2016-05-04 06:39] LABS: INR 1.8 (0.9-1.1); PROTHROMBIN TIME (PATIENT) 19.5 SECONDS (9.0-12.0)
[2016-05-04 06:48] LABS: CALCIUM 8.2 mg/dl (8.5-10.1); CREATININE 5.8 mg/dl (0.60-1.40); POTASSIUM 5.1 mmol/L (3.5-5.1)
[2016-05-04] MEDS: INSULIN ASPART 100 UNITS/ML 3 ML PEN SC SCH ×4 (07:00→21:00)
[2016-05-04] MEDS: INSULIN GLARGINE SOLOSTAR 100 UNITS/ML 3 ML PEN SQ SCH (09:00)
[2016-05-04] MEDS ORDERED: EPOETIN ALFA 10,000 UNITS/ML VIAL IV. ONE (10:00)
[2016-05-04] MEDS ORDERED: PHYTONADIONE 5 MG TAB PO STA (10:08)
[2016-05-04] MEDS ORDERED: NURSING VERBAL MED ORDER ONE (10:30)
--- NOTE | 2016-05-04 10:56 | NEPHROLOGY CONSULTATION ---
DATE OF CONSULTATION: 05/04/2016 FOR: [facility] Hospitalist Service. PROBLEMS: End-stage renal disease. HISTORY OF PRESENT ILLNESS: Mr. Morrow is an 81-year-old white male well known to me. I have followed him for many years. Mr. Morrow's chronic medical illnesses include a longstanding history of non-insulin dependent diabetes mellitus, hypertension, hypercholesterolemia, gout, ASCVD with coronary artery disease and an ischemic cardiomyopathy as well as atrial fibrillation and systolic congestive heart failure as well as his chronic renal failure. Over the years, Mr. Morrow's blood pressure had been well controlled. His diabetes was likewise reasonably well managed on oral hypoglycemics. His atrial fibrillation was associated with a controlled ventricular response and he had no complications with anticoagulation with warfarin. His renal function remains stable for many years with a serum creatinine between 2.5 and 3.0. In 2009; however, he began to develop increasing problems and complications. Apparently, as a result of symptoms of palpitations and increasing shortness of breath, he underwent a repeat cardiac evaluation. He was found to have obvious ischemic heart disease. Holter monitor demonstrated significant pauses as well as episodes of nonsustained ventricular tachycardia. A 2-dimensional echocardiogram demonstrated a left ventricular ejection fraction of 30% with global hypokinesis and mild to moderate mitral regurgitation. He underwent an adenosine Cardiolite stress test that demonstrated an inferior and lateral defect consistent with his previous myocardial infarction. Although cardiac catheterization was considered, given his poor ventricular function, he refused. He also had significant renal insufficiency. He underwent the placement of a dual chamber ICD because of his ischemic cardiomyopathy. An atrial lead was placed in the event that he wanted to be cardioverted to sinus rhythm at a later date. Mr. Morrow refused that cardioversion. Subsequent to that time, Mr. Morrow did reasonably well. However, through 2013 and 2014, he had increasing symptoms of congestive heart failure. His serum creatinine had risen to about 3.5 but remained stable at that point. He had been on a regimen at home where he was able to follow daily weights and adjust his dose of loop diuretics based on increasing amounts of edema and increased weight or problems of shortness of breath. He was doing well with that regimen. In August of 2015, he again noted increasing problems of shortness of breath. He had been compliant with his medical regimen. He was admitted to the hospital at that time with shortness of breath and increasing edema. His chest x-ray showed evidence of congestive heart failure. Despite increasing doses of diuretics, he continued to be short of breath and his serum creatinine continued to rise. At that point, it was elected to start Mr. Morrow on maintenance dialysis. He has been dialyzed twice weekly on Tuesdays and Saturdays. He has done remarkably well. He has had no symptoms of uremia and no symptoms of volume overload. He did not require a third dialysis treatment. He remained anticoagulated with warfarin. He had had an AV fistula created in his right forearm for maintenance dialysis. However, that fistula after showing some promise failed to mature to the point where it could be used regularly. Several days ago, he underwent creation of a new AV fistula in his left upper arm. That fistula is functioning but it is yet to be used. His dialysis access through all this time has been in a catheter in the right IJ. He has had no problems or complications with the catheter. Dialysis treatments have been uncomplicated. He is admitted now after a fall at home, resulting in a fractured right humerus as well as an impacted fracture of the right femoral neck. Surgery to pin his right hip is being considered. His right arm is in a sling. CURRENT REGULAR HOME MEDICATIONS: Allopurinol 300 mg daily, aspirin 81 mg daily, atorvastatin 80 mg daily, PhosLo 667 mg 2 with meals, carvedilol 12.5 mg twice a day, hydrocodone/acetaminophen 5/325 one q. 12 hours p.r.n. pain, Xopenex 2 puffs q. 6 hours p.r.n. shortness of breath or wheezing, isosorbide mononitrate 30 mg daily, Lantus insulin 12 units once daily, levothyroxine 150 mcg daily, MiraLax 17 grams daily p.r.n. constipation, multivitamin a day, NovoLog via sliding scale, pantoprazole 40 mg daily, risperidone 0.25 mg at bedtime and travoprost 0.004% one drop each eye at bedtime as well as Combigan 0.2-0.5% 2 drops twice daily in each eye. DIALYSIS MEDICATIONS: Include heparin 2000 units at the beginning of each dialysis treatment and 500 units an hour thereafter. He also gets calcitriol 0.5 mcg daily with each dialysis treatment as well as Venofer 100 mg IV weekly. He is currently not on any erythrocyte-stimulating agents. ALLERGIES: No known medication allergies. The remainder of his past medical history, family history, social history and review of systems as outlined on his admission notes and previous consult notes and will not be repeated. There are no significant changes. OBJECTIVE: GENERAL: On physical exam when seen by me, Mr. Morrow appeared a bit lethargic. He is a chronically ill appearing male who was lying quietly in bed and did not seem to be in any distress. VITAL SIGNS: His blood pressure was 118/78, his pulse 67 and slightly irregular, respiratory rate 18, his pulse ox 97% on 2 liters of oxygen via nasal cannula. He is afebrile (36.3). SKIN: Shows diminished skin turgor. He has scars present from prior surgical procedures including a scar beneath his distal left clavicle from his pacemaker, which is palpable at that site. He has a tunneled hemodialysis catheter exiting beneath the distal right clavicle. He has some ecchymoses involving his right arm. He has an incision at the left wrist from the creation of a prior AV fistula. He has an incision in the left antecubital fossa from the recent fistula surgery as well as significant ecchymoses and swelling at that site. He has marked changes of chronic venous stasis dermatitis involving his distal lower extremities. He also has some scars present over his distal lower extremities from previous injury. LYMPHATICS: Show no palpable lymphadenopathy. HEAD: Normal. EYES: Grossly normal. The ocular fundi were not examined. EARS, NOSE, MOUTH AND THROAT: Unremarkable. His oral mucous membranes; however, are quite dry. NECK: Supple. He has no obvious jugular venous distention at the current time. A tunneled hemodialysis catheter is in the right IJ. There is no thyromegaly. CHEST: Clear to auscultation. I hear no wheezes, rales or rhonchi. CARDIAC: Shows a slightly irregular rhythm. He has a systolic murmur at the base radiating toward the neck. His systolic murmurs also heard at the apex. ABDOMEN: Nontender. There is no organomegaly or mass. Bowel sounds are present. I hear no abdominal bruits. EXTREMITIES: Show the skin changes noted above. He has swelling of his left arm with postoperative changes in the left antecubital fossa and marked ecchymoses. He has an AV fistula with a weak pulse, thrill and bruit in the right forearm. He has pain on motion of his right hip. His right arm is in a sling. NEUROLOGIC: Shows no lateralizing changes. He has decrease in protective changes at his distal lower extremities. PERTINENT LABORATORY WORK: From today shows a white count of 8050, his hemoglobin is 10.7, hematocrit 31.0 and his platelet count is 129,000. His prothrombin time is 19.5 with an INR of 1.8. Clinical chemistries show a sodium of 136 mmol/L, potassium of 5.1 mmol/L, chloride of 97 mmol/L, and CO2 content of 29 mmol/L. His BUN is 58, his creatinine 5.80. His random blood sugar is 93 this morning and blood sugars have varied from 85-172. IMAGING STUDIES: Include an x-ray of his right shoulder which shows an impacted right humeral neck fracture that extends through the greater tuberosity of the humeral head. X-rays of his pelvis show evidence of an impacted fracture of the right femoral head and neck. Additional CT scans confirm those changes. ASSESSMENT: An 81-year-old gentleman with multiple medical problems including end-stage renal disease. He also has a history of atrial fibrillation and an ischemic cardiomyopathy with a significant reduction of his ejection fraction. Currently, he seems clinically dry with a relatively low blood pressure, diminished skin turgor and dry oral mucous membranes. He has not eaten today. His prothrombin time is prolonged with an INR of 1.8. His end-stage renal disease has been managed affectively. His serum potassium today is 5.1. Healing of fractures of this nature in patients with end-stage renal disease generally take a longer time because of the problem of renal osteodystrophy. Mr. Morrow has also been relatively inactive which could contribute to some degree of osteoporosis. RECOMMENDATIONS: I think that his hip fracture will need to be pinned. Obviously rehabilitation will be slow with the recent surgery to his left arm as well as the fracture of his right humerus. That is going to be make it difficult for him to use either a cane or walker in the near future to begin to ambulate. We will plan on hemodialysis for tomorrow. His prothrombin time will need to be corrected. Would recommend cardiology consultation before he goes to surgery. No other immediate recommendations. Immediately postoperatively, he will need to have a basic metabolic profile check to make sure he does not develop hyperkalemia with his surgery. Certainly as far as surgery is concerned if it can be done without general anesthesia, it would be helpful.
[2016-05-04] MEDS: ATORVASTATIN 40 MG TAB PO SCH (11:23)
[2016-05-04] MEDS: ALLOPURINOL 300 MG TAB PO SCH (11:24)
[2016-05-04] MEDS: AMLODIPINE BESYLATE 5 MG TAB PO SCH (11:24)
[2016-05-04] MEDS: ISOSORBIDE MONONITRATE 30 MG TABCR PO SCH (11:24)
[2016-05-04] MEDS: ASPIRIN 81 MG ECTAB PO SCH (11:25)
[2016-05-04] MEDS: METOLAZONE 5 MG TAB PO SCH (11:25)
[2016-05-04] MEDS: CARVEDILOL 25 MG TAB PO SCH ×2 (11:25→21:10)
[2016-05-04] MEDS: CEROVITE ADV FORMULA TAB PO SCH (11:25)
[2016-05-04] MEDS: PANTOprazole SOD 40 MG TAB PO SCH (11:25)
--- NOTE | 2016-05-04 14:43 | Anesthesiology Progress Note ---
Pre-OP Anesthesia Assessment Date of Note May 04, 2016. Notes I saw this pt for proposed R bipolar hemiarthroplasty by Dr. Alves tomorrow. He had a mechanical fall and suffered R humeral neck (non-operative) and R femoral neck fractures. PMH includes ischemic CM w/ EF 20-25%, ICD/pacer ( [employer], replaced in ), a. fib on chronic warfarin, HTN, carotid stenosis, ESRD on HD 2x per week (/Wed), type 2 DM on oral meds at home, hypothyroidism. Last week he underwent creation of a LUE AVF (uneventful IV sedation) and also has a RUE AVF which apparently failed. His RUE is used for IVs. He received 5 mg PO Vitamin K today for his INR of 1.8. On exam he is laying in bed in NAD, occasionally falling asleep during my interview. He appears to be at least mildly confused. Airway shows MP3, full CROM, TMD 3 f.b. , poor dentition. Heart RRR w/ 05/01 systolic murmur. Lungs relatively clear. Afebrile w/ stable vitals on 2L NC. Labs remarkable for mild anemia w/ Hgb/Hct 10.7/31, K 5.1, BUN/Cr 58/5.8, INR 1.8. EKG shows v pacing at 60. TTE from shows EF 20-25%, severe global hypokinesis, mild AI, mod MR/TR. Carotid Doppler 01/23/15 showed ~70% R ICA and 50-69% L ICA stenosis. CXR from 04/23/16 showed improvement in b/l interstitial thickening and stable cardiomegaly. The pt obviously has significant comorbid conditions and carries a significant surgical risk, but his conditions appear to be reasonably close to their baseline. He does not appear to be overtly hypervolemic. He should be ok for surgery tomorrow pending INR in the AM. I believe he is also to be evaluated by Cardiology. He is to receive his usual Wednesday HD tomorrow. We don't ideally like to administer anesthesia on the day of HD but I don't think it's unreasonable to do so in him assuming he appears to be hemodynamically stable after HD tomorrow. He may benefit from being a little on the dry side and having his electrolytes optimized given his cardiac disease. I spoke to the anesthesiologist who will be caring for him tomorrow and he agrees w/ proceeding pending evaluation tomorrow. He'll likely receive GA +/- invasive monitoring. Spinal is not ideal given his elevated INR, platelet dysfunction from ESRD, severe LV dysfunction, and potential for hypovolemia after HD. He'll be NPO after midnight except meds w/ sips of water. I discussed the plan w/ the pt and his and had his sign consent. He has a T&S pending.
--- NOTE | 2016-05-04 15:45 | CARDIOLOGY CONSULTATION ---
DATE OF CONSULTATION: 05/04/2016 PERTINENT HISTORY: Mr. Morrow is an 81-year-old white male with complex past medical history who was admitted yesterday after a fall. The patient will require an operative repair of the right hip fracture and therefore, consultation was ordered. The patient was in his usual state of poor health until yesterday when he fell at home landing on his right side. There was no loss of consciousness, and the patient claims he simply slipped on the floor. He did not sustain head trauma. He presented to the Emergency Room for further evaluation. He was found to have a fracture of the right humerus which is nondisplaced and nonsurgical. He also had a right femoral neck fracture which will require repair. The patient has a longstanding history of coronary artery disease. In 2009, he underwent an evaluation for frequent palpitations. He was found to have an inferolateral myocardial infarction by a nuclear stress test. Echocardiogram revealed significant left ventricular systolic dysfunction with an ejection fraction of approximately 30%. A dual chamber ICD was placed in July 2009. This device was changed to a single chamber ICD in August 2016 as the patient is in permanent atrial fibrillation. The patient has chronic systolic congestive heart failure. His volume is maintained with hemodialysis. The patient leads a very sedentary lifestyle. However, he does not experience exertional chest pain nor limiting dyspnea. He further denies syncope or presyncope, PND, lower extremity edema, and claudication. The patient does sleep in a reclining chair at night because of back discomfort, not orthopnea. Currently, the patient is resting comfortably in bed without complaints of chest pain or dyspnea. He is supine at approximately 30 degrees. PAST MEDICAL HISTORY: 1. Coronary artery disease -- inferolateral infarction, nuclear stress test, July 2009. 2. Ischemic cardiomyopathy -- 20-25% -- August 2015. 3. Chronic systolic congestive heart failure. 4. Dual chamber ICD -- July 2009. 5. Single chamber ICD -- August 2015. 6. Permanent atrial fibrillation. 7. Hypertension. 8. Hypercholesterolemia. 9. Diabetes mellitus. 10. Hypothyroidism. 11. End-stage renal disease. 12. Gout. 13. History of lower GI bleeding. MEDICATIONS: 1. Carvedilol 25 mg b.i.d. 2. Hydralazine 50 mg t.i.d. 3. Imdur 30 mg daily. 4. Zaroxolyn 5 mg per day. 5. Norvasc 10 mg daily. 6. Lipitor 80 mg at bedtime. 7. Aspirin 81 mg per day. 8. Protonix 40 mg daily. 9. Multivitamin. 10. Allopurinol 150 mg per day. 11. Travatan eyedrops daily. ALLERGIES: None. SOCIAL HISTORY: The patient is and lives with his . Does not use tobacco or alcohol. FAMILY HISTORY: Noncontributory. REVIEW OF SYSTEMS: A 10-point review of systems was negative except for that described above. PHYSICAL EXAMINATION: GENERAL: This is a well-developed, well-nourished elderly white male lying supine in bed without complaints. HEENT: Negative. NECK: Supple with full carotid upstrokes. No obvious bruits. Jugular venous pressure is difficult to assess. There is no thyromegaly. CARDIOVASCULAR: Reveals an irregular rhythm with distant heart sounds. A 1/6 basal systolic ejection murmur is noted. No S3. LUNGS: Clear without rales, rhonchi, or wheeze. CHEST: Reveals a palpable pacemaker at the left subclavicular region. Dialysis catheter noted in the right subclavicular region. ABDOMEN: Soft without bruits. EXTREMITIES: Notes ecchymosis and edema in the area of the left antecubital fossa. An audible bruit is noted in this region. There is significant hyperpigmentation of the distal lower extremities bilaterally. There is no pretibial edema. DATA: CBC notes hemoglobin of 10.7, hematocrit 31.0, white count 8.0, and platelet count 129,000. Electrolytes note sodium of 136, potassium 5.1, chloride 97, bicarbonate 29, BUN 58, creatinine 5.8, glucose 85. INR is 1.8. EKG notes atrial fibrillation with appropriate ventricular pacing and a PVC. There is a left axis deviation and an intraventricular conduction delay. IMPRESSION: Mr. Morrow sustained a fall at home and will require operative repair of a right femoral neck fracture. The patient has coronary artery disease which is quiescent on his current medical regimen. He also carries a history of an ischemic cardiomyopathy and chronic systolic congestive heart failure. The patient is currently compensated and his volume is controlled with hemodialysis. Although the patient is at cardiac risk for surgery, I did not feel it is prohibitive. Conservative treatment of a hip fracture in this individual would be higher risk than a surgical intervention. PLAN: 1. Continue usual cardiac medications as you are. 2. Volume management and hemodialysis per Dr. Ramirez. 3. Acceptable cardiac risk for surgery. ELIE
--- NOTE | 2016-05-04 16:03 | Family Medicine Progress Note ---
Progress Note Date of Service May 04, 2016. Subjective Pt evaluation today including: conversation w/ patient, conversation w/ family , physical exam, chart review, lab review, review of studies, review of inpatient medication list Pain: denies pain rest, severe pain in RUE, RLE on movement PO Intake: Adequate Pt has no complaints, no acute events overnight, denies cp, sob, n/v, abdominal pain Constitutional: No chills, No fever Respiratory: No cough, No shortness of breath Cardiovascular: No chest pain, No palpitations Abdomen: No constipation, No diarrhea, No nausea, No pain, No vomiting Skin: No itch, No rash Medications Current Inpatient Medications Medications (Trade) Dose Ordered Sig/Summer Route Start Time Stop Time Status Last Admin Dose Admin Acetaminophen (Tylenol Tab) 650 mg Q4H PRN PO 05/03/16 03:30 06/02/16 03:29 Al Hydrox/Mg Hydrox/Simethicone (Maalox Max Susp) 15 ml Q4H PRN PO 05/03/16 03:30 06/02/16 03:29 Magnesium Hydroxide (Milk Of Magnesia Susp) 30 ml Q6H PRN PO 05/03/16 03:30 06/02/16 03:29 Polyethylene (Miralax Powder Packet) 17 gm DAILY PRN PO 05/03/16 03:30 06/02/16 03:29 Zolpidem Tartrate (Ambien Tab) 5 mg HSZ PRN PO 05/03/16 03:30 06/02/16 03:29 Ondansetron HCl (Zofran Inj) 4 mg Q6H PRN IV 05/03/16 03:30 06/02/16 03:29 Allopurinol (Zyloprim Tab) 150 mg QAM PO 05/03/16 09:00 06/02/16 08:59 05/04/16 11:24 150 MG Amlodipine Besylate (Norvasc Tab) 10 mg QAM PO 05/03/16 09:00 06/02/16 08:59 05/04/16 11:24 10 MG Aspirin (Ecotrin Tab) 81 mg QAM PO 05/03/16 09:00 06/02/16 08:59 05/04/16 11:25 81 MG Atorvastatin Calcium (Lipitor Tab) 80 mg QAM PO 05/03/16 09:00 06/02/16 08:59 05/04/16 11:23 80 MG Carvedilol (Coreg Tab) 25 mg BID PO 05/03/16 09:00 06/02/16 08:59 05/04/16 11:25 25 MG Hydralazine HCl (Apresoline Tab) 50 mg TID PO 05/03/16 09:00 06/02/16 08:59 05/04/16 14:25 50 MG Insulin Glargine (Lantus Solostar Pen) 12 unit QAM SQ 05/03/16 09:00 06/02/16 08:59 Future hold 05/03/16 09:27 12 UNIT Isosorbide Mononitrate (Imdur Ext Rel Tab) 30 mg QAM PO 05/03/16 09:00 06/02/16 08:59 05/04/16 11:24 30 MG Levothyroxine Sodium (Synthroid Tab) 150 mcg DAILYBB PO 05/03/16 06:00 06/02/16 05:59 05/04/16 05:41 150 MCG Metolazone (Zaroxolyn Tab) 5 mg QAM PO 05/03/16 09:00 06/02/16 08:59 05/04/16 11:25 5 MG Multivitamins/ Minerals (Multivitamin W/ Minerals Tab) 1 tab DAILY PO 05/03/16 09:00 06/02/16 08:59 05/04/16 11:25 1 TAB Oxycodone/ Acetaminophen (Percocet 5-325MG Tab) 1 tab Q4H PRN PO 05/03/16 03:30 05/17/16 03:29 Pantoprazole Sodium (Protonix Tab) 40 mg DAILY PO 05/03/16 09:00 06/02/16 08:59 05/04/16 11:25 40 MG Travoprost (Travatan Z) 1 drops HS OP 05/03/16 21:00 06/02/16 20:59 05/03/16 21:00 1 DROPS Morphine Sulfate (MoRPHine SULFATE INJ) 2 mg Q3H PRN IV 05/03/16 03:30 05/17/16 03:29 05/03/16 13:01 2 MG Insulin Aspart (novoLOG ASPART) SLIDING SCALE G... ACHS SC 05/03/16 07:00 06/02/16 06:59 05/03/16 12:55 1 UNITS Glucose (Glucose 40% Gel) 15-30 GRAMS 15 GRAMS... UD PRN PO 05/03/16 06:00 06/02/16 05:59 Glucose (Glucose Chew Tab) 4-8 Tablets 4 Tabl... UD PRN PO 05/03/16 06:00 06/02/16 05:59 Dextrose (Dextrose 50% 50ML Syringe) 25-50ML OF 50% DW IV FOR... UD PRN IV 05/03/16 06:00 06/02/16 05:59 Glucagon (Glucagon Inj) 1 mg UD PRN SQ 05/03/16 06:00 06/02/16 05:59 Heparin Sodium (Porcine) 2000 unit 2,000 unit TODAY@0800 IV 05/05/16 08:00 05/05/16 16:00 Iron Sucrose 100 mg/Syringe 5 ml @ 1 mls/min TODAY@0800 IV 05/05/16 08:00 05/05/16 16:00 Sodium Chloride 1,000 ml @ 0 mls/hr Q0M PRN IV 05/05/16 08:00 05/05/16 16:00 Epoetin Johnny/ Syringe (Procrit Inj/ Syringe) 0.25 ml @ 1 mls/min TODAY@0800 IV. 05/05/16 08:00 05/05/16 16:00 Brimonidine/ Timolol (Combigan 0.2%/ 0.5% Oph Solution) 1 drop BID OP 05/04/16 21:00 06/03/16 20:59 Cefazolin Sodium (Ancef 2000mg/60 ml D5W) 2,000 mg PREOP IV 05/05/16 06:00 05/05/16 18:00 Objective Vital Signs Date Time Temp Pulse Resp B/P Pulse Ox O2 Delivery O2 Flow Rate FiO2 05/04/16 12:00 Nasal Cannula 05/04/16 11:57 61 18 110/60 94 2.0 05/04/16 08:00 Nasal Cannula 05/04/16 07:35 36.3 67 18 118/78 97 Nasal Cannula 2.0 05/04/16 04:00 Nasal Cannula 05/04/16 03:30 36.3 65 18 121/56 91 Nasal Cannula 2.0 05/04/16 00:01 Nasal Cannula 05/03/16 23:19 36.5 63 18 101/46 97 Nasal Cannula 2.0 05/03/16 20:00 Nasal Cannula 05/03/16 19:50 36.5 60 18 120/70 94 Nasal Cannula 2.0 05/03/16 16:00 Nasal Cannula Physical Exam General Appearance: WD/WN, no apparent distress Eyes: normal inspection, PERRL, EOMI ENT: normal ENT inspection Neck: supple, trachea midline Respiratory/Chest: chest non-tender, lungs clear Cardiovascular: regular rate, rhythm, + systolic murmur, + irregularly irregular Abdomen: normal bowel sounds, soft Extremities: normal range of motion, no pedal edema, + pertinent finding (L UE fistulal ( nonfunctional), RLE tenderness with palpation movment ) Neurologic/Psychiatric: data capture clerk II-XII nml as tested, alert, normal mood/affect, + pertinent finding (Oriented to person/place only) Laboratory Results Results Past 24 Hours Test 05/03/16 16:25 05/03/16 20:11 05/04/16 05:45 05/04/16 06:37 Range/Units Bedside Glucose 151 103 85 70-99 mg/dl White Blood Count 8.05 4.8-10.8 K/uL Red Blood Count 2.99 4.7-6.1 M/uL Hemoglobin 10.7 14.0-18.0 g/dL Hematocrit 31.0 42-52 % Mean Corpuscular Volume 103.7 80-100 fL Mean Corpuscular Hemoglobin 35.8 25-34 pg Mean Corpuscular Hemoglobin Concent 34.5 32-36 g/dl RDW Standard Deviation 57.9 36.4-46.3 fL RDW Coefficient of Variation 15.3 11.5-14.5 % Platelet Count 129 130-400 K/uL Mean Platelet Volume 10.6 7.4-10.4 fL Prothrombin Time 19.5 9.0-12.0 SECONDS Prothromb Time International Ratio 1.8 0.9-1.1 Sodium Level 136 136-145 mmol/L Potassium Level 5.1 3.5-5.1 mmol/L Chloride Level 97 98-107 mmol/L Carbon Dioxide Level 29 21-32 mmol/L Anion Gap 10.0 3-11 mmol/L Blood Urea Nitrogen 58 7-18 mg/dl Creatinine 5.80 0.60-1.40 mg/dl Est Creatinine Clear Calc Drug Dose 10.4 ml/min Estimated GFR () 9.6 Estimated GFR (Non- 8.3 BUN/Creatinine Ratio 10.0 10-20 Random Glucose 93 70-99 mg/dl Calcium Level 8.2 8.5-10.1 mg/dl Test 05/04/16 11:12 Range/Units Bedside Glucose 84 70-99 mg/dl Assessment and Plan 81 yo M with hx of CHF, CAD, AFib, ESRD p/w with hx of fall at home w/ resultant Rt displaced humeral fracture, partially displaced R femoral neck fracture. R humeral fracture and R femoral fracture - Ortho planning surgical repair Rt femoral fx tmr pending Cardiology recommendations, PT correction - Rt humerus surgery not indicated - Continue IV morphine 2mg Q3 - NPO after midnight prior to surgery ESRD (on dialysis) - baseline creatinine between 3-5 - 5.8 <--3.9, F/u BMP in AM - Appreciated Nephrology input -Hemodialysis tmr Afib - Rate controlled with carvedilol - Coumadin held in prep for surgery - INR 1.8. Given vitamin K today. Follow INR. CHF - Systolic Heart Failure with EF of 20-25 - Continue metolazone and Carvedilol - Patient on Telemetry - cardiology consult as per request for preop eval CAD - continue statin, imdur and b-harry -Pt can remain on ASA 81 mg per Ortho DM - insulin sliding scale - on insulin at home HTN - Continue norvasc, imdur, hydralazine and carvedilol Hypothyroid - Continue synthroid Gout - Continue allopurinol Dispo - Full code - Will need rehab facility upon d/c - pt/ot Continued [facility] stay due to: ambulation difficulties, multiple IV medications needed Discharge planning: rehab hospital Reviewed: Pt Seen/Exam by Me History denies any concerns Constitutional: denies: fever Respiratory: negative: short of breath Cardiovascular: denies chest pain Gastrointestinal/Abdominal: negative: abdominal pain General Appearance: no apparent distress Respiratory: lungs clear, no respiratory distress Cardiovascular: irregularly irregular Extremities: other (right UE in sling) Neurologic/Psychiatric: other (sedated - easily arousable) Skin Characteristics: warm/dry Assessment/Plan I have reviewed the medical record and performed a history and physical examination of this patient today. I have discussed the case with Dr. Sandy. The above note reflects my findings, conclusions, and recommendations.
--- NOTE | 2016-05-04 16:46 | Orthopedic Progress Note ---
Orthopedic Progress Note Date of Service May 04, 2016. Subjective Reports: feeling well, Denies: SOB, calf pain, chest pain, light headedness, nausea / vomiting Additional Notes: PAINFUL WITH ANY MOVEMENT. NPO FOR TODAY BUT IS BEING POSTPONED SO HE CAN BE MEDICALLY OPTIMIZED Objective calves soft nontender, N/V intact, capillary refill less than 2 sec. ROM DEFERRED. RUE IN SLING, MODERATE SWELLING. Date Time Temp Pulse Resp B/P Pulse Ox O2 Delivery O2 Flow Rate FiO2 05/04/16 16:18 36.6 94 14 130/68 94 Nasal Cannula 2.0 05/04/16 12:00 Nasal Cannula 05/04/16 11:57 61 18 110/60 94 2.0 05/04/16 08:00 Nasal Cannula 05/04/16 07:35 36.3 67 18 118/78 97 Nasal Cannula 2.0 05/04/16 04:00 Nasal Cannula 05/04/16 03:30 36.3 65 18 121/56 91 Nasal Cannula 2.0 05/04/16 00:01 Nasal Cannula 05/03/16 23:19 36.5 63 18 101/46 97 Nasal Cannula 2.0 05/03/16 20:00 Nasal Cannula 05/03/16 19:50 36.5 60 18 120/70 94 Nasal Cannula 2.0 Laboratory Results 24 Hours: Test 05/04/16 05:45 Hematocrit 31.0 % Hemoglobin 10.7 g/dL Prothromb Time International Ratio 1.8 Prothrombin Time 19.5 SECONDS Assessment & Plan Assessment: RIGHT HIP FRACTURE RIGHT HUMERUS FRACTURE Plan: DISCUSSED WITH DR. BEAR. PATIENT FOR DIALYSIS IN AM. WILL PLAN FOR DIRECT ANTERIOR HEMIARTHROPLASTY AROUND 1:30. DR. KIM SAW THE PATIENT TODAY, MARKED HIM AND CONSENTED HIM. 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 BEAR APPRECIATE CARDIAC INPUT. Inhouse Planning Pain Management: Percocet, Morphine DVT Prophylaxis: TEDs, SCDs, Heparin Drip
[2016-05-04] MEDS: TRAVOPROST Z 0.004% OPH SOLN 2.5 ML BTL OP SCH (21:09)
[2016-05-04] MEDS: BRIMONIDINE TARTRATE-TIMOLOL M 1 DROP BTL OP SCH (21:11)
[2016-05-05] VITALS (34 sets, daily range): BP systolic 82–153; BP diastolic 33–78; PULSE 56–69; TEMP 36.4–36.7; O2SAT 91–100
[2016-05-05] MEDS: NOREPINEPHRINE BIT INJ 8 MG in DEXTROSE 5% 500ML 500 ML IV PRN ×2 (00:30→19:30)
[2016-05-05] MEDS: LEVOTHYROXINE 150 MCG TAB PO SCH (05:48)
[2016-05-05] MEDS ORDERED: VANCOMYCIN INJ 400 MG in NSS 100ML IR SCH (06:00)
[2016-05-05] MEDS ORDERED: CEFAZOLIN IV 2,000 MG/60 ML D5W IV SCH (06:00)
[2016-05-05] MEDS ORDERED: POLYMYXIN B SULFATE 100,000 UNITS in NSS 100ML IR SCH (06:00)
[2016-05-05] MEDS: INSULIN ASPART 100 UNITS/ML 3 ML PEN SC SCH ×4 (07:00→23:59)
[2016-05-05] MEDS: ALLOPURINOL 300 MG TAB PO SCH (07:17)
[2016-05-05] MEDS: METOLAZONE 5 MG TAB PO SCH (07:18)
[2016-05-05] MEDS: AMLODIPINE BESYLATE 5 MG TAB PO SCH (07:18)
[2016-05-05] MEDS: PANTOprazole SOD 40 MG TAB PO SCH (07:18)
[2016-05-05] MEDS: ATORVASTATIN 40 MG TAB PO SCH (07:18)
[2016-05-05] MEDS: ASPIRIN 81 MG ECTAB PO SCH (07:18)
[2016-05-05] MEDS: CEROVITE ADV FORMULA TAB PO SCH (07:18)
[2016-05-05] MEDS: BRIMONIDINE TARTRATE-TIMOLOL M 1 DROP BTL OP SCH ×2 (07:22→21:00)
[2016-05-05] MEDS: CARVEDILOL 25 MG TAB PO SCH (07:23)
[2016-05-05] MEDS: INSULIN GLARGINE SOLOSTAR 100 UNITS/ML 3 ML PEN SQ SCH (07:23)
[2016-05-05] MEDS ORDERED: EPOETIN ALFA INJ 5,000 UNITS in SYRINGE 0 ML IV. SCH (08:00)
[2016-05-05] MEDS ORDERED: HEPARIN SOD (PORCINE) 1000 UNIT/ML 10 ML VIAL IV SCH (08:00)
[2016-05-05] MEDS ORDERED: SODIUM CHLORIDE 0.9% 1000ML 1,000 ML IV PRN (08:00)
[2016-05-05] MEDS ORDERED: IRON SUCROSE INJ 100 MG in SYRINGE 0 ML IV SCH (08:00)
[2016-05-05] MEDS: ISOSORBIDE MONONITRATE 30 MG TABCR PO SCH (09:00)
--- NOTE | 2016-05-05 09:55 | NEPHROLOGY PROGRESS NOTE ---
DATE: 05/05/2016 DATE: 05/05/2016. SUBJECTIVE: Mr. Morrow says that he is feeling reasonably well this morning. He denies having significant pain either in his right arm or his hip. He is scheduled for hip replacement later today by Dr. Alves. He denies having any chest pain or shortness of breath. He does recognize that he has a loose cough but says it has been nonproductive. He has had no shaking chills or sweats. He says that his appetite is fair. He has no other particular complaints. OBJECTIVE: GENERAL: On physical exam at the current time, Mr. Morrow appeared to be awake and alert. However, he was somewhat confused. On dialysis his blood pressure at the current time is 86/43 with a pulse of about 64 and regular with an occasional extrasystole (presumably paced rhythm). VITAL SIGNS: He is afebrile (36.5), his respiratory rate is 18, his pulse ox 93-97% on 2 liters of oxygen via nasal cannula. SKIN: Shows significant ecchymoses involving his left arm, centered at the antecubital fossa at the site of his recent fistula surgery. He also has ecchymoses in his right upper arm. He has marked changes of venous stasis dermatitis on his distal lower extremities. Skin turgor seems normal. He has no rash or infiltrative skin disease. He has scars from prior surgical procedures, most notably his left antecubital fossa scar and a right wrist scar from AV fistula surgery. He has a scar beneath the distal left clavicle from the implantation of his ICD. LYMPHATICS: Show no palpable lymphadenopathy. HEAD: Normal. EYES: Grossly normal. The ocular fundi were not examined. EARS, NOSE, MOUTH AND THROAT: Unremarkable. His oral mucous membranes are moist. NECK: Supple. He has some jugular venous distention at about 45 degrees. I hear no definite carotid bruits. He has no thyromegaly. He does have a tunneled hemodialysis catheter in the right IJ. CHEST: Shows a few scattered rhonchi, but is otherwise clear. CARDIAC EXAMINATION: Currently shows a regular rhythm with a rare extrasystole. He has a systolic murmur at the base radiating toward the neck. A systolic murmur is also heard at the apex radiating toward the axilla. ABDOMEN: Nontender. There is no organomegaly or mass. Bowel sounds are present. He has no abdominal bruits. EXTREMITIES: Show the skin changes noted above. He has swelling of his left arm at the site of his recent surgical procedure. He has the ecchymoses and minimal swelling of his right upper arm. He has pain on motion of his right hip. NEUROLOGIC EXAMINATION: Shows more than some minimal confusion, but no lateralizing findings. LABORATORY WORK: From today is pending. ASSESSMENT: Clinically stable. From a renal standpoint post-dialysis and assuming his prothrombin time is acceptable to surgery and anesthesia, I think he will be ready for surgery. RECOMMENDATIONS: Postoperatively would check a partial renal profile. Continue to monitor his hemoglobin.
--- NOTE | 2016-05-05 10:48 | CARDIOLOGY PROGRESS NOTE ---
DATE: 05/05/2016 DATE: 05/05/2016. SUBJECTIVE: Mr. Morrow is resting comfortably in bed. Currently undergoing hemodialysis. Denies chest pain and dyspnea. OBJECTIVE: VITAL SIGNS: Blood pressure 100/60 with a regular pulse of 60. Respiratory rate is 18. The patient is afebrile at 36.5?C. Saturations 95% on 2 liters nasal cannula. NECK: Supple with full carotid upstrokes. No obvious bruits. Jugular venous pressure is difficult to assess. CARDIOVASCULAR EXAMINATION: Reveals an irregular rhythm with distant heart sounds. A 1/6 basal systolic ejection murmur is noted. No S3. LUNGS: Clear without rales, rhonchi, or wheezes. CHEST: Reveals a palpable pacemaker left subclavicular region. ABDOMEN: Soft without bruits. EXTREMITIES: Note no change. DATA: CBC and electrolytes are pending at the time of this dictation. IMPRESSION AND PLAN: 1. Right hip fracture -- will undergo an operative repair today. As before, felt to be an acceptable cardiac risk as conservative care of a hip fracture in this gentleman would be a greater risk than a surgical intervention. 2. Coronary artery disease -- inferolateral infarction on a nuclear stress test done in July 2009. Quiescent on current medications. 3. Ischemic cardiomyopathy -- ejection fraction of 20-25% August 2015. 4. Chronic systolic congestive heart failure -- compensated at this time. Volumes managed by hemodialysis. 5. Single chamber implantable cardioverter-defibrillator - August 2015. 6. Permanent atrial fibrillation -- rate controlled. 7. Hypertension -- controlled. 8. Hypercholesterolemia. 9. End-stage renal disease -- per Dr. Ramirez.
[2016-05-05] MEDS ORDERED: LABETALOL HCL IV 5 MG/ML 20ML IV PRN (11:45)
[2016-05-05] MEDS ORDERED: EpHEDrine SULFATE INJ 50 MG/ML AMP IV PRN (11:45)
[2016-05-05] MEDS ORDERED: FENTANYL CITRATE INJ 50 MCG/1 ML 2 ML VIAL IV PRN (11:45)
[2016-05-05] MEDS ORDERED: ONDANSETRON INJ 2 MG/ML 2 ML VIAL IV PRN (11:45)
[2016-05-05] MEDS ORDERED: MEPERIDINE HCL 25 MG/ML CARP IV PRN (11:45)
[2016-05-05] MEDS ORDERED: HYDROmorphone INJ 1 MG/ML SYR IV PRN (11:45)
[2016-05-05] MEDS ORDERED: ATROPINE SULFATE 0.1 MG/ML 5ML SYR IV PRN (11:45)
[2016-05-05] MEDS ORDERED: FENTANYL CITRATE INJ 50 MCG/1 ML 2 ML VIAL ONE ×4 (12:42→17:30)
[2016-05-05] MEDS ORDERED: MIDAZOLAM HCL 1 MG/ML 2ML VIAL ONE (12:42)
[2016-05-05] MEDS ORDERED: ETOMIDATE 2 MG/ML 20 ML VIAL IV ONE (12:47)
[2016-05-05] MEDS ORDERED: ONDANSETRON INJ 2 MG/ML 2 ML VIAL ONE (12:48)
[2016-05-05] MEDS ORDERED: EpHEDrine SULFATE INJ 50 MG/ML AMP ONE ×2 (12:52→14:52)
[2016-05-05] MEDS ORDERED: ORTHO JOINT ANESTHETIC ONE (12:53)
[2016-05-05] MEDS ORDERED: LIDOCAINE HCL 2% 2 ML VIAL (20MG/ML) ONE (13:34)
[2016-05-05] MEDS ORDERED: PHENYLEPHRINE 100MCG/ML 5ML SYR ONE (14:52)
[2016-05-05] MEDS ORDERED: NEOSTIGMINE METHYLSULFATE 5 MG/5 ML SYR ONE (15:27)
[2016-05-05] MEDS ORDERED: GLYCOPYRROLATE INJ 0.2 MG/ML VIAL ONE (15:27)
--- NOTE | 2016-05-05 16:02 | [facility] Post Operative Brief Note ---
Immediate Operative Summary Operative Date May 05, 2016. Pre-Operative Diagnosis Right hip fracture Post-Operative Diagnosis Same as preoperative diagnosis Procedure(s) Performed Right Bipolar Hip Prosthesis Direct Anterior Approach-Cemented Surgeon Dr. Gino Alves Freight Service Inspector Surgeon(s) José Miguel Quintero PAC Estimated Blood Loss 25 Findings dispalced fx Specimens a. right femoral head Complication(s) None Disposition Recovery Room / PACU
[2016-05-05] MEDS ORDERED: PHARMACY GLYCEMIC MGMT CONSULT PRN (16:15)
--- NOTE | 2016-05-05 16:21 | DIAGNOSTIC IMAGING REPORT ---
RIGHT HIP UNILATERAL 1 VIEW CLINICAL HISTORY: Anterior approach Right. Right hip prosthesis Fluoroscopy time: 6 seconds. FINDINGS: A single fluoroscopic spot image of the right hip was submitted. The distal tip of the femoral prosthesis is not entirely included. No fracture or dislocation. There is a right hip hemiarthroplasty. The hardware appears intact. IMPRESSION: Fluoroscopy provided for a right hip hemiarthroplasty. Electronically signed by: Jose G Rodriguez M.D. 05/05/2016 4:20 PM Dictated Date/Time: 05/05/2016 4:19 PM
[2016-05-05] MEDS ORDERED: POVIDONE-IODINE OP SOLN 30 ML BTL TOP ONE (16:22)
[2016-05-05] MEDS ORDERED: BACITRACIN 50000 UNIT VIAL IR ONE (16:22)
[2016-05-05] MEDS ORDERED: BUPIVACAINE 0.5% W/EPI 1:200,000 INJ ONE (16:25)
[2016-05-05] MEDS ORDERED: WARFARIN SOD 2.5 MG TAB PO SCH (16:30)
[2016-05-05] MEDS ORDERED: NURSING VERBAL MED ORDER ONE (16:45)
[2016-05-05] MEDS ORDERED: ALBUT/IPRATROP 3MG/0.5MG NEB 3 ML VIAL INH STA (16:46)
--- NOTE | 2016-05-05 17:09 | DIAGNOSTIC IMAGING REPORT ---
AP PELVIS, CROSSTABLE LATERAL RIGHT HIP History: Right hip hemiarthroplasty. Degenerative arthritis. Postop. FINDINGS: The patient is status post a right hip hemiarthroplasty. The hardware is intact. No fracture or dislocation. Skin iman are in place. IMPRESSION: Right hip hemiarthroplasty. No evidence for hardware complication Electronically signed by: Jose G Rodriguez M.D. 05/05/2016 5:07 PM Dictated Date/Time: 05/05/2016 5:05 PM
--- NOTE | 2016-05-05 17:20 | OPERATIVE REPORT ---
DATE OF OPERATION: 05/05/2016 PREOPERATIVE DIAGNOSIS: Displaced subcapital fracture, right hip. POSTOPERATIVE DIAGNOSIS: Same. PROCEDURE: Right cemented hemiarthroplasty. SURGEON: Dr. Gino Alves. CHIEF MERCHANDISING OFFICER: JARAD Hong. ANESTHESIA: General. BLOOD LOSS: 25 mL. REPLACEMENT FLUIDS: 800 mL of crystalloid. DRAINS: None. CULTURES: None. COMPLICATIONS: None. COMPONENTS USED: [employer] cemented, stem size 3 standard offset with -3, 28-mm head. Marie bipolar outer shell, size 50. NOTE: JARAD Hong was present and assisted throughout due to the complicated nature of this case. He helped with preparation and set up, first assisted throughout and closed the fascial, subcutaneous and skin layers and applied the postoperative dressing. INDICATION FOR PROCEDURE: This patient is a very ill 81-year-old man with a history of end-stage renal disease on dialysis, also severe arteriosclerosis cardiovascular disease with ischemic cardiomyopathy with an ejection fraction of 20%. He had fallen and sustained a displaced subcapital hip fracture as well as the ipsilateral proximal humerus fracture. He was dialyzed this morning and was taken to the surgery room for fixation of his hip. DESCRIPTION OF PROCEDURE: Following satisfactory general, the patient was supine. The right leg was placed in the traction device and the left leg in the well leg clements. The right leg was prepared with ChloraPrep and draped sterilely. Following a surgical time-out, an anterior approach in the interval between the sartorius and tensor muscles was completed. Approximately, a 3.5 to 4 inch incision was made. The circumflex femoral vessels were identified and ligated and an anterior capsulotomy was performed exposing the displaced fracture, which was essentially the femoral head. The femoral head was somewhat comminuted and the bone quality was poor. The femoral neck was then trimmed and removed. Bone fragments and head were removed and sized. A 50 bipolar shell showed good fit and fill. Local anesthetic was placed around the cup. The femur was placed in a position of external rotation, extension and adduction. The femoral canal was prepared up to the size 3. A trial reduction with a -3 head and a 50 outer shell using fluoroscopy showed good fit and fill of the proximal canal and protestant of the leg lengths using anatomic landmarks on fluoroscopy. The hip was dislocated. The trial component was removed. The cement restriction plug was placed. The canal was curetted and after irrigation and drying, third generation cement technique was used to cement the stem using Simplex G cement. When the cement had hardened, a trial reduction with the similar head showed leg lengths restored. The hip was dislocated. The final head and bipolar shell were placed and the hip was reduced. A Betadine soak was performed for 5 minutes. The Betadine was then irrigated. The capsule was closed with #1 Vicryl interrupted. Following local anesthetic, the muscle fascia was closed with a running suture of #1 Vicryl. The subcutaneous tissues were closed with 2-0 Vicryl. The skin was closed with surgical iman. A silver dressing was applied. The patient was taken to the recovery room still intubated, but in stable condition. I attest to the content of the Intraoperative Record and any orders documented therein. Any exceptio ns are noted below.
[2016-05-05 17:36] LABS: BASO % 0.3 %; BASO ABS # 0.03 K/uL (0-0.2); EOS % 3.1 %; HEMATOCRIT 31.5 % (42-52); IG% 0.3 %; LYMPH % 31.1 %; LYMPH ABS # 3.34 K/uL (1.2-3.4); MEAN CELL VOLUME 106.8 fL (80-100); MEAN CORPUSCULAR HEMOGLOBIN 35.3 pg (25-34); MEAN PLATELET VOLUME 10.8 fL (7.4-10.4); MONO % 6.8 %; NEUT % 58.4 %; PLATELET COUNT 121 K/uL (130-400); RED BLOOD COUNT 2.95 M/uL (4.7-6.1); WHITE BLOOD COUNT 10.74 K/uL (4.8-10.8)
[2016-05-05 17:37] LABS: ARTERIAL BLD GAS O2 SATURATION 80.1 % (90-95); ARTERIAL BLOOD GAS BASE EXCESS -6.7 mEq/L (-9-1.8); ARTERIAL BLOOD GAS HCO3 19 mmol/L (19-24); ARTERIAL BLOOD GAS PO2 50 mm/Hg (80-95)
[2016-05-05] MEDS ORDERED: FENTANYL CITRATE 1250MCG/250ML NSS ONE (17:39)
--- NOTE | 2016-05-05 17:40 | DIAGNOSTIC IMAGING REPORT ---
CHEST ONE VIEW PORTABLE CLINICAL HISTORY: CODE BLUE. Endotracheal tube placement. COMPARISON STUDY: Chest radiograph April 23, 2016 [place] FINDINGS: The tip of the endotracheal tube is 5.8 cm above the dorothy. A right internal jugular central line and left subclavian pacer/AICD are in place. There is no pneumothorax. The patient is rotated mildly. There is left lower lobe airspace opacity with volume loss. There is a suspected small left pleural effusion. Interstitial thickening is noted. IMPRESSION: 1. Tip of endotracheal tube 5.8 cm above the dorothy. 2. Left lower lobe opacity with volume loss. This may reflect atelectasis or pneumonia. 3. Mild interstitial thickening which suggest mild pulmonary edema. 4. Suspected small left pleural effusion. Electronically signed by: Jorge Pardo M.D. 05/05/2016 5:38 PM Dictated Date/Time: 05/05/2016 5:36 PM
[2016-05-05 17:42] LABS: ALLEN TEST POS (POS); COMPLETE YES; O2 ADMINISTRATION 100%
[2016-05-05] MEDS ORDERED: DOBUTamine 500MG / 250ML D5W ONE (17:46)
[2016-05-05] MEDS ORDERED: EPINEPHRINE HCL 4 MG in DEXTROSE 5% 250ML IV PRN (18:00)
[2016-05-05 18:01] LABS: BUN/CREATININE RATIO 8.2 (10-20); CALCIUM 7.1 mg/dl (8.5-10.1); CARBON DIOXIDE 20 mmol/L (21-32); CHLORIDE 104 mmol/L (98-107); GLUCOSE 185 mg/dl (70-99); MAGNESIUM 2.4 mg/dl (1.8-2.4); POTASSIUM 4.7 mmol/L (3.5-5.1); SODIUM 139 mmol/L (136-145)
[2016-05-05 18:04] LABS: ALKALINE PHOSPHATASE 83 U/L (45-117); ALT/SGPT < 6 U/L (12-78); AST/SGOT 24 U/L (15-37); PHOSPHORUS 3.9 mg/dl (2.5-4.9)
--- NOTE | 2016-05-05 18:04 | Pharmacy Progress Note ---
Glycemic Control Intl Consult Date of Service May 05, 2016. Scope Glycemic Pharmacist consulted by Dr Alves on 05/05/16 for glycemic control and to write orders per [facility] inpatient glycemic control protocol Objective Weight (Kilograms): 86.300 Accuchecks BSG (last 24hrs): Test 05/04/16 20:11 05/05/16 06:37 05/05/16 17:20 Bedside Glucose 106 mg/dl (70-99) 99 mg/dl (70-99) Laboratory Data (last 24hrs) Test 05/05/16 17:20 White Blood Count 10.74 K/uL Red Blood Count 2.95 M/uL Hemoglobin 10.4 g/dL Hematocrit 31.5 % Mean Corpuscular Volume 106.8 fL Mean Corpuscular Hemoglobin 35.3 pg Mean Corpuscular Hemoglobin Concent 33.0 g/dl Platelet Count 121 K/uL Mean Platelet Volume 10.8 fL Neutrophils (%) (Auto) 58.4 % Lymphocytes (%) (Auto) 31.1 % Monocytes (%) (Auto) 6.8 % Eosinophils (%) (Auto) 3.1 % Basophils (%) (Auto) 0.3 % Neutrophils # (Auto) 6.28 K/uL Lymphocytes # (Auto) 3.34 K/uL Monocytes # (Auto) 0.73 K/uL Eosinophils # (Auto) 0.33 K/uL Basophils # (Auto) 0.03 K/uL Recent Pertinent Medications Outpatient Anti-diabetic Regimen: * glipizide ER 5mg PO daily * NovoLog sliding scale * Lantus 12 untis SQ q AM The patient is currently receiving: * Basal insulin: Lantus 12 units every 24 hours * Correctional Insulin: NovoLog Correction per scale AC/HS Goal Range: Low 120 mg/dL - High 160 mg/dL Correction Factor: 40 mg/dL/unit * Prandial insulin: Per carb ratio of 1 unit per -- grams CHO consumed Risk Factors for Insulin Resistance: * Steroids: none at this time * Infection: cefazolin perioperatively * Pressors: none at the time of consult * IVF: none at the time of consult * Recent Surgery: POD #0 * Diet: Renal/T2DM Assessment & Plan ASSESSMENT: * ADA & AACE recommend a goal blood sugar range 140-180 mg/dl for the majority of critically ill & non-critically ill patients. However, more stringent targets may be selected in individual cases. 05/05/16 * Consult received postoperatively today - after review of the patient's BSG trends, it appears that Mr Morrow has been having BSGs below goal range. * Hold basal insulin at this time (last dose administered on 05/03/16) * "Loosen" NovoLog goal range to be in accordance with ADA recommendations and continue to forgo carbohydrate coverage. * The patient has PMHx significant for ESRD with HD - this will likely make the A1c difficult to interpret * Insulin regimen based on POC BSG values instead of A1c * Around 1730 the patient was a code blue; fentanyl gtt and epi gtt ordered. * Increased physiological stress may cause BSGs to trend upwards - monitor with Accu-checks and re-assess in AM * If BSGs trend upwards, may consider insulin infusion as the standard of care in ICU PLAN FOR INPATIENT GLYCEMIC CONTROL: * Hold Lantus at this time * Continue NovoLog AC and HS or q6H if NPO * Correction factor: 40mg/dL/unit * Carb ratio: forgo at this time * Goal range: 120-160mg/dL--> 140-180mg/dL * Please note that the plan above was derived based on current level of insulin resistance and hospital stress. These recommendations are appropriate for inpatient admission only. Plan of care upon discharge will need to be reassessed to avoid potential outpatient hypo/hyperglycemia. Thank you.
--- NOTE | 2016-05-05 18:20 | Anesthesiology Progress Note ---
Anesthesia Post Op Note Date & Time May 05, 2016 at 18:14 Vital Signs Pain Intensity: 3.0 Vital Signs Past 12 Hours Date Time Temp Pulse Resp B/P Pulse Ox O2 Delivery O2 Flow Rate FiO2 05/05/16 17:26 89 151/88 05/05/16 17:21 68 102/51 05/05/16 17:11 78 143/79 05/05/16 17:01 60 82/41 63 Non-Rebreather 15 05/05/16 16:55 74 16 82/41 87 Non-Rebreather 15 05/05/16 16:48 65 21 91 Non-Rebreather 15.0 05/05/16 16:45 64 16 98/43 91 Non-Rebreather 15 05/05/16 16:35 36.8 61 16 98/41 91 Non-Rebreather 15 NIBP 05/05/16 12:45 62 18 104/43 97 Nasal Cannula 05/05/16 12:44 36.4 61 18 119/64 96 Nasal Cannula 2.0 05/05/16 12:30 Nasal Cannula 2.0 05/05/16 12:26 36.4 61 18 119/64 96 Nasal Cannula 05/05/16 12:09 36.7 60 105/47 05/05/16 12:00 59 90/50 05/05/16 11:45 68 105/53 05/05/16 11:30 64 97/47 05/05/16 11:15 65 115/50 05/05/16 11:00 65 98/55 05/05/16 10:45 62 97/55 05/05/16 10:30 56 108/59 05/05/16 10:15 60 103/53 05/05/16 10:00 61 82/52 05/05/16 09:45 60 97/47 05/05/16 09:30 59 82/56 05/05/16 09:15 57 86/43 05/05/16 09:00 62 95/53 05/05/16 08:45 60 99/56 05/05/16 08:30 65 89/44 05/05/16 08:15 61 100/57 05/05/16 08:08 60 90/52 05/05/16 08:00 Nasal Cannula 2.0 05/05/16 07:57 36.5 60 90/52 05/05/16 07:33 36.4 60 18 102/78 95 2.0 Notes Mental Status: see Notes Nausea / Vomiting: see Notes Pain: see Notes Pt had right hip delicia-arthroplasty under [place]. Right radial arterial line was placed preoperatively and monitored throughout. Pt tolerated procedure without difficulty and was emerged and extubated afterwards. Transported to PACU on NRB O2 mask with SaO2 high 80's to low 90's. Pt was somnolent, breathing adequately and responsive to verbal. At 1701, nurse noted BP drop to 52/32 and SaO2 63% and called Code Blue. I responded and ACLS was implemented. Pt was orally intubated, chest compressions were performed and after 2 amps of epinephrine administered pt had return of pulse, blood pressure and spontaneous breathing efforts. ICU staff responded and pt transferred to ICU for further management. I explained events to pt's . At her request, I phoned pt's daughter "Brigitte" and spoke with her as well. I explained to them that cause of his arrest is unknown but present circumstance is extremely critical. They expressed to me that pt's stated wish is for all available measures be used for his care. I told them supportive care will continue and effort made to diagnose and remedy pt's condition. Pt left in care of dry wall installer and ICU staff on mechanical ventilation and vasopressors at this time.
[2016-05-05 18:44] LABS: ISTAT ARTERIAL BLOOD GAS HCO3 18 meq/L (19-24); ISTAT ARTERIAL BLOOD GAS PCO2 41 mmHg (35-46); ISTAT ARTERIAL BLOOD GAS PO2 50 mmHg (80-95); ISTAT ARTERIAL BLOOD GAS pH 7.25 (7.35-7.45); ISTAT CARBON DIOXIDE 19 mEq/l (24-31); ISTAT HEMATOCRIT 31 % (42-52); ISTAT HEMOGLOBIN 10.5 g/dl (14.0-18.0); ISTAT SODIUM 136 mEq/L (135-144)
--- NOTE | 2016-05-05 18:55 | Family Medicine Progress Note ---
Progress Note Date of Service May 05, 2016. Subjective Pt evaluation today including: conversation w/ patient, physical exam, chart review, lab review, review of studies, conversation w/ provider contracting consultant PO Intake: NPO for surgery Pt was s/p Rt hemiarthroplasty secondary to displaced subcapital Fracture of the Rt hip and tolerated procedure , was extubated and placed on non-rebreather mask in PACU to maintain adequate saturation. Pt was responsive. Additional Comments: could not assess full review of systems immediately following surgery. patient was responsive to verbal commands Medications Current Inpatient Medications Medications (Trade) Dose Ordered Sig/Summer Route Start Time Stop Time Status Last Admin Dose Admin Acetaminophen (Tylenol Tab) 650 mg Q4H PRN PO 05/03/16 03:30 06/02/16 03:29 Al Hydrox/Mg Hydrox/Simethicone (Maalox Max Susp) 15 ml Q4H PRN PO 05/03/16 03:30 06/02/16 03:29 Magnesium Hydroxide (Milk Of Magnesia Susp) 30 ml Q6H PRN PO 05/03/16 03:30 06/02/16 03:29 Polyethylene (Miralax Powder Packet) 17 gm DAILY PRN PO 05/03/16 03:30 06/02/16 03:29 Zolpidem Tartrate (Ambien Tab) 5 mg HSZ PRN PO 05/03/16 03:30 06/02/16 03:29 Ondansetron HCl (Zofran Inj) 4 mg Q6H PRN IV 05/03/16 03:30 06/02/16 03:29 Allopurinol (Zyloprim Tab) 150 mg QAM PO 05/03/16 09:00 06/02/16 08:59 05/05/16 07:17 150 MG Amlodipine Besylate (Norvasc Tab) 10 mg QAM PO 05/03/16 09:00 06/02/16 08:59 05/05/16 07:18 10 MG Aspirin (Ecotrin Tab) 81 mg QAM PO 05/03/16 09:00 06/02/16 08:59 05/05/16 07:18 81 MG Atorvastatin Calcium (Lipitor Tab) 80 mg QAM PO 05/03/16 09:00 06/02/16 08:59 05/05/16 07:18 80 MG Carvedilol (Coreg Tab) 25 mg BID PO 05/03/16 09:00 06/02/16 08:59 05/05/16 07:23 25 MG Hydralazine HCl (Apresoline Tab) 50 mg TID PO 05/03/16 09:00 06/02/16 08:59 05/05/16 07:18 50 MG Insulin Glargine (Lantus Solostar Pen) 12 unit QAM SQ 05/03/16 09:00 06/02/16 08:59 Future Hold 05/03/16 09:27 12 UNIT Isosorbide Mononitrate (Imdur Ext Rel Tab) 30 mg QAM PO 05/03/16 09:00 06/02/16 08:59 05/04/16 11:24 30 MG Levothyroxine Sodium (Synthroid Tab) 150 mcg DAILYBB PO 05/03/16 06:00 06/02/16 05:59 05/05/16 05:48 150 MCG Metolazone (Zaroxolyn Tab) 5 mg QAM PO 05/03/16 09:00 06/02/16 08:59 05/05/16 07:18 5 MG Multivitamins/ Minerals (Multivitamin W/ Minerals Tab) 1 tab DAILY PO 05/03/16 09:00 06/02/16 08:59 05/05/16 07:18 1 TAB Oxycodone/ Acetaminophen (Percocet 5-325MG Tab) 1 tab Q4H PRN PO 05/03/16 03:30 05/17/16 03:29 Pantoprazole Sodium (Protonix Tab) 40 mg DAILY PO 05/03/16 09:00 06/02/16 08:59 05/05/16 07:18 40 MG Travoprost (Travatan Z) 1 drops HS OP 05/03/16 21:00 06/02/16 20:59 05/04/16 21:09 1 DROPS Morphine Sulfate (MoRPHine SULFATE INJ) 2 mg Q3H PRN IV 05/03/16 03:30 05/17/16 03:29 05/03/16 13:01 2 MG Insulin Aspart (novoLOG ASPART) SLIDING SCALE G... ACHS SC 05/03/16 07:00 06/02/16 06:59 05/03/16 12:55 1 UNITS Glucose (Glucose 40% Gel) 15-30 GRAMS 15 GRAMS... UD PRN PO 05/03/16 06:00 06/02/16 05:59 Glucose (Glucose Chew Tab) 4-8 Tablets 4 Tabl... UD PRN PO 05/03/16 06:00 06/02/16 05:59 Dextrose (Dextrose 50% 50ML Syringe) 25-50ML OF 50% DW IV FOR... UD PRN IV 05/03/16 06:00 06/02/16 05:59 Glucagon (Glucagon Inj) 1 mg UD PRN SQ 05/03/16 06:00 06/02/16 05:59 Brimonidine/ Timolol 1 drop 1 drop BID OP 05/04/16 21:00 06/03/16 20:59 05/05/16 07:22 1 DROP Cefazolin Sodium/ Dextrose (Ancef Iv/D5 50ml) 60 ml @ 100 mls/hr Q8H IV 05/05/16 22:00 05/06/16 06:35 Miscellaneous Information (Consult Glycemic Management Pharmacy) 1 ea UD PRN N/A 05/05/16 16:15 06/04/16 16:14 Warfarin Sodium 2.5 mg 2.5 mg DAILY@16 PO 05/05/16 16:30 06/04/16 16:29 Epinephrine HCl/ Dextrose (Adrenalin Inj/ D5 250ml) 254 ml @ 0 mls/hr Q0M PRN IV 05/05/16 18:00 06/04/16 17:59 Objective Vital Signs Date Time Temp Pulse Resp B/P Pulse Ox O2 Delivery O2 Flow Rate FiO2 05/05/16 17:21 68 102/51 05/05/16 17:11 78 143/79 05/05/16 17:01 60 82/41 63 Non-Rebreather 15 05/05/16 16:55 74 16 82/41 87 Non-Rebreather 15 05/05/16 16:48 65 21 91 Non-Rebreather 15.0 05/05/16 16:45 64 16 98/43 91 Non-Rebreather 15 05/05/16 16:35 36.8 61 16 98/41 91 Non-Rebreather 15 NIBP 05/05/16 12:45 62 18 104/43 97 Nasal Cannula 05/05/16 12:44 36.4 61 18 119/64 96 Nasal Cannula 2.0 05/05/16 12:30 Nasal Cannula 2.0 05/05/16 12:26 36.4 61 18 119/64 96 Nasal Cannula 05/05/16 12:09 36.7 60 105/47 05/05/16 12:00 59 90/50 05/05/16 11:45 68 105/53 05/05/16 11:30 64 97/47 05/05/16 11:15 65 115/50 05/05/16 11:00 65 98/55 05/05/16 10:45 62 97/55 05/05/16 10:30 56 108/59 05/05/16 10:15 60 103/53 05/05/16 10:00 61 82/52 05/05/16 09:45 60 97/47 05/05/16 09:30 59 82/56 05/05/16 09:15 57 86/43 05/05/16 09:00 62 95/53 05/05/16 08:45 60 99/56 05/05/16 08:30 65 89/44 05/05/16 08:15 61 100/57 05/05/16 08:08 60 90/52 05/05/16 08:00 Nasal Cannula 2.0 05/05/16 07:57 36.5 60 90/52 05/05/16 07:33 36.4 60 18 102/78 95 2.0 05/05/16 04:00 Nasal Cannula 2.0 05/05/16 03:52 36.7 59 20 102/66 93 Nasal Cannula 2.0 05/04/16 23:59 Nasal Cannula 2.0 05/04/16 23:59 36.8 62 16 118/55 97 Nasal Cannula 2.0 05/04/16 20:13 62 128/75 96 Nasal Cannula 2.0 05/04/16 20:00 94 Nasal Cannula 2.0 Physical Exam General Appearance: no apparent distress, + pertinent finding (post-operative , with non-rebreather mask at 15L) Eyes: normal inspection, PERRL, EOMI Neck: supple Respiratory/Chest: chest non-tender, lungs clear, normal breath sounds Cardiovascular: regular rate, rhythm, no murmur Abdomen: normal bowel sounds, non tender, soft Extremities: + pertinent finding (Right hip s/p hemiarthroplasty, bandage in place) Neurologic/Psychiatric: + pertinent finding (still under effects of ansthesia, responsive to commands ) Skin: normal color, warm/dry Laboratory Results Results Past 24 Hours Test 05/04/16 20:11 05/05/16 06:37 05/05/16 17:20 05/05/16 17:45 Range/Units Bedside Glucose 106 99 70-99 mg/dl White Blood Count 10.74 4.8-10.8 K/uL Red Blood Count 2.95 4.7-6.1 M/uL Hemoglobin 10.4 14.0-18.0 g/dL Hematocrit 31.5 42-52 % Mean Corpuscular Volume 106.8 80-100 fL Mean Corpuscular Hemoglobin 35.3 25-34 pg Mean Corpuscular Hemoglobin Concent 33.0 32-36 g/dl Platelet Count 121 130-400 K/uL Mean Platelet Volume 10.8 7.4-10.4 fL Neutrophils (%) (Auto) 58.4 % Lymphocytes (%) (Auto) 31.1 % Monocytes (%) (Auto) 6.8 % Eosinophils (%) (Auto) 3.1 % Basophils (%) (Auto) 0.3 % Neutrophils # (Auto) 6.28 1.4-6.5 K/uL Lymphocytes # (Auto) 3.34 1.2-3.4 K/uL Monocytes # (Auto) 0.73 0.11-0.59 K/uL Eosinophils # (Auto) 0.33 0-0.5 K/uL Basophils # (Auto) 0.03 0-0.2 K/uL RDW Standard Deviation 59.6 36.4-46.3 fL RDW Coefficient of Variation 15.3 11.5-14.5 % Immature Granulocyte % (Auto) 0.3 % Immature Granulocyte # (Auto) 0.03 0.00-0.02 K/uL Arterial Blood pH 7.30 7.35-7.45 Arterial Blood Partial Pressure CO2 40 35-46 mmHg Arterial Blood Partial Pressure O2 50 80-95 mm/Hg Arterial Blood HCO3 19 19-24 mmol/L Arterial Blood Oxygen Saturation 80.1 90-95 % Arterial Blood Base Excess -6.7 -9-1.8 mEq/L Arterial Blood Gas Delivery 100% Jr Test POS POS Sodium Level 139 136-145 mmol/L Potassium Level 4.7 3.5-5.1 mmol/L Chloride Level 104 98-107 mmol/L Carbon Dioxide Level 20 21-32 mmol/L Anion Gap 15.0 3-11 mmol/L Creatinine 3.30 0.60-1.40 mg/dl Est Creatinine Clear Calc Drug Dose 18.3 ml/min Estimated GFR () 19.0 Estimated GFR (Non- 16.4 BUN/Creatinine Ratio 8.2 10-20 Random Glucose 185 70-99 mg/dl Calcium Level 7.1 8.5-10.1 mg/dl Phosphorus Level 3.9 2.5-4.9 mg/dl Magnesium Level 2.4 1.8-2.4 mg/dl Total Bilirubin 0.9 0.2-1 mg/dl Direct Bilirubin 0.3 0-0.2 mg/dl Aspartate Amino Transf (AST/SGOT) 24 15-37 U/L Alanine Aminotransferase (ALT/SGPT) < 6 12-78 U/L Alkaline Phosphatase 83 45-117 U/L Total Creatine Kinase 180 39-308 U/L Total Protein 6.0 6.4-8.2 gm/dl Albumin 2.5 3.4-5.0 gm/dl Assessment and Plan 81 yo M with hx of CHF, CAD, AFib, ESRD p/w with hx of fall at home w/ resultant Rt displaced humeral fracture, partially displaced R femoral neck fracture s/p hemiarthroplasty of the Rt Hip Rt humeral fracture and R femoral fracture - Rt humerus surgery not indicated per ortho - Pt seen by cardiology (Dr. Vaughn), nephrology (Dr. Ramirez), risk of surgery deemed acceptable - s/p Right Hip hemiarthroplasty (POD 0) - extubated, saturation 80's- 90's while in PACU, placed on non-breather at 15 L ESRD (on dialysis) - Dialyzed today -baseline creatinine between 3-5 - Cr 3.3 Afib - Rate controlled with carvedilol - Coumadin held in prep for surgery - Last INR 1.8 (05/04/16) . CHF - Systolic Heart Failure with EF of 20-25 - cardiac risk was deemed acceptable for surgery - Continue metolazone and Carvedilol CAD - Continue Statin, Imdur and b-harry -Pt can remain on ASA 81 mg per Ortho DM - insulin sliding scale - on insulin at home HTN - Continue Norvasc, Imdur, hydralazine and carvedilol Hypothyroid - Continue Synthroid Gout - Continue allopurinol Dispo - Full code -Transfer to Surgical ICU for post-operative care - Will need rehab facility upon d/c Continued [facility] stay due to: abnormal vital signs, multiple IV medications needed, other (post-operative management) Discharge planning: uncertain Resident Tracking Resident Involvement: Resident Care Provided Care Provided: Adult [facility] Medicine Reviewed: Pt Seen/Exam by Me History patient seen in PACU before code blue. Arousable to name. Constitutional: denies: fever Respiratory: negative: short of breath Cardiovascular: denies chest pain Gastrointestinal/Abdominal: negative: abdominal pain General Appearance: no apparent distress (on NRB) Respiratory: lungs clear, no respiratory distress Cardiovascular: regular rate, rhythm Neurologic/Psychiatric: other (sedated - arousable to verbal stimuli) Skin Characteristics: warm/dry Assessment/Plan I have reviewed the medical record and performed a history and physical examination of this patient today. I have discussed the case with Dr. Sandy. The above note reflects my findings, conclusions, and recommendations. While still in PACU, Patient later dropped his blood pressure and was coded. Revived with CPR and one dose Epinephrine and transferred to ICU where he coded again. Anesthesiologist Dr Perea and Critical care physician Dr. Romeo managed the codes. was updated of the situation.
[2016-05-05] MEDS ORDERED: OPTIRAY 320 IV PRN (19:15)
[2016-05-05] MEDS ORDERED: PIPERACILL/TAZOBAC IV 3.375 GM in DEXTROSE 5% 100ML 100 ML IV STA (19:29)
[2016-05-05] MEDS ORDERED: HEPARIN IV BOLUS 6,000 UNIT in SYRINGE 0 ML IV ONE (19:30)
[2016-05-05 19:40] LABS: PARTIAL THROMBOPLASTIN RATIO 1.4
[2016-05-05 20:05] LABS: ISTAT ARTERIAL BLOOD GAS HCO3 26 meq/L (19-24); ISTAT ARTERIAL BLOOD GAS PCO2 49 mmHg (35-46); ISTAT ARTERIAL BLOOD GAS PO2 > 420 mmHg (80-95); ISTAT ARTERIAL BLOOD GAS pH 7.32 (7.35-7.45); ISTAT CARBON DIOXIDE 27 mEq/l (24-31); ISTAT DELIVERY SYSTEM Ventilator; ISTAT FIO2 100 %; ISTAT PEEP 16; ISTAT RATE 18; ISTAT SITE Art Line; VE 9.4; Vt 500
[2016-05-05] MEDS ORDERED: PIPERACILL/TAZOBAC CONSULT ACTIVE PRN (20:15)
[2016-05-05] MEDS ORDERED: PIPERACILL/TAZOBAC IV 3.375 GM in DEXTROSE 5% 100ML IV ONE (20:15)
[2016-05-05 20:16] LABS: BLOOD UREA NITROGEN 27 mg/dl (7-18)
[2016-05-05] MEDS: TRAVOPROST Z 0.004% OPH SOLN 2.5 ML BTL OP SCH (21:00)
[2016-05-05] MEDS ORDERED: PROPOFOL IV EMULSION 10 MG/ML 100 ML VIAL IV PRN (21:15)
[2016-05-05] MEDS ORDERED: CEFAZOLIN IV 2,000 MG in DEXTROSE 5% 50ML 50 ML IV SCH (22:00)
--- NOTE | 2016-05-05 22:39 | DIAGNOSTIC IMAGING REPORT ---
CT ANGIOGRAPHY OF THE CHEST, PULMONARY EMBOLUS PROTOCOL CLINICAL HISTORY: Shortness of breath. Severe hypoxemia. COMPARISON STUDY: Chest radiograph April 23, 2016 and May 05, 2016. TECHNIQUE: Following IV administration of 116 mL of Optiray-320, helical axial images of the chest were obtained utilizing the pulmonary embolus protocol. Maximal intensity projections and sagittal and coronal reformats were viewed on an independent 3D workstation. IV contrast was administered without complication. CT DOSE: 974.36 mGy.cm FINDINGS: No pulmonary emboli are identified although the segmental and subsegmental vessels within the lower lobes are suboptimally assessed on this exam due to respiratory motion and suboptimal opacification. A left subclavian pacemaker/AICD is in place. There is a right internal jugular dual lumen catheter. Endotracheal and nasogastric tubes are satisfactorily positioned. The heart is moderately enlarged. There is no pericardial effusion. There are trace bilateral pleural effusions. The lungs are suboptimally assessed due to respiratory motion. Interlobular septal thickening is noted. There are patchy groundglass and nodular opacities within lungs as well. Central airways are patent. There is no pneumothorax. Bony thorax is unremarkable. There is extensive vascular calcification. Anasarca is noted. 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 IMPRESSION: 1. No pulmonary emboli identified although evaluation of the lower lobe segmental and subsegmental pulmonary arteries is significantly compromised due to motion artifact and suboptimal opacification. 2. Moderate cardiomegaly. 3. Trace bilateral pleural effusions. Mild pulmonary edema. Scattered groundglass and nodular opacities likely also reflect edema although an infectious process could appear similar. No consolidation. 4. Anasarca. Electronically signed by: Jorge Pardo M.D. 05/05/2016 10:37 PM Dictated Date/Time: 05/05/2016 10:26 PM
[2016-05-05] MEDS: HEPARIN 25,000 UNIT/500ML D5W 500 ML IV PRN (23:04)
--- NOTE | 2016-05-05 23:33 | Procedure Note ---
Procedure Note Pipe Coremaker/Emergent Bronchoscopy Patient had persistent O2 sats in the 70's. CXR without PTX, ETT high (advanced ), mild pulmonary edema, not difficult to bag. He was lavaged and bagged without return of much if any sputum. I felt an emergent bronchoscopy was necessary to rule out mucous plugging. Fiberoptic flexible bronchoscope was advanced through the ETT and into LLL bronchus. There was some pastrana sputum is distal airways of LLL but no mucous plugging. Approximately 30ml of lavage was used to try to suction the secretions with success. Airways were clear at the end of the procedure. No mucous plugs identified. Scope was advance into ABBY bronchus, RLL and first part of RML - no secretions identified. Saturations remained in the 70-80's and started to improve after patient was placed on PCV for 30 minutes and with more escalation of peep. He remained hemodynamically stable on dobutamine and levophed throughout.
[2016-05-05] MEDS ORDERED: ASPIRIN 81 MG CHEW PO STA (23:39)
[2016-05-05 23:55] LABS: BUN/CREATININE RATIO 8.9 (10-20); CALCIUM 6.8 mg/dl (8.5-10.1); CREATININE 3.8 mg/dl (0.60-1.40); POTASSIUM 4.4 mmol/L (3.5-5.1)
[2016-05-06] VITALS (30 sets, daily range): BP systolic 91–155; BP diastolic 25–45; PULSE 60–81; TEMP 36.5–36.8; O2SAT 100
[2016-05-06 00:13] LABS: CKMB/CK RATIO 1.9 (0-3.0)
--- NOTE | 2016-05-06 01:04 | CRITICAL CARE CONSULTATION ---
DATE OF CONSULTATION: 05/05/2016 CHIEF COMPLAINT: Hypotension and hypoxemia. HISTORY OF PRESENT ILLNESS: The patient is an 81-year-old gentleman with multiple medical problems such as ischemic cardiomyopathy, ejection fraction 20-25%, atrial fibrillation, end-stage renal disease and agq-ouktuca-rstqthhds diabetes mellitus, who presented to the hospital on 05/02/2016 after a fall at home. At that time, he suffered a right humeral fracture, right femoral neck fracture. He was admitted to the hospital and seen by the nephrology and cardiology services. His Coumadin was stopped and he was taken to the operating room today for cemented hemiarthroplasty of the right hip. There were no reported intraoperative complications, although his oxygen saturations were in the low 90s on 100% FiO2. He was intubated using a #3 Sandra blade and an 8.0 endotracheal tube. Postoperatively, he went to the PACU and was extubated. At some point he became hypoxemic, poorly responsive and hypotensive. A code blue was called when he was found to be pulseless. At that time, he was reintubated and given 0.5 mg of epinephrine. He was noted to be in PEA and was given another 0.5 mg of epinephrine. The dialysis catheter was used for further medications. There was difficulty obtaining an oxygen saturation and his blood pressure was anywhere from 90-200 systolically. He was given 2 liters of IV fluid and eventually transferred to the intensive care unit. Upon arrival to the intensive care unit, he was on Levophed and eventually placed on dobutamine. His oxygen saturations remained in the 70s-80s and initially after intubation there were absent breath sounds on the left side. Chest x-ray prior to transfer to the intensive care unit did not show a pneumothorax. When he arrived in the intensive care unit, after further evaluation, I did an emergent bronchoscopy and I found moderate amount of pastrana secretions in the left lower lobe, but no mucus plugs. Eventually, he was placed on pressure control ventilation and his oxygen saturations improved. Prior to bronchoscopy, endotracheal tube was lavaged with saline without much return. There were no complaints of chest pain or any other complaints prior to his decompensation in the PACU. He remains on Levophed as well as dobutamine and a fentanyl infusion. He received CPR twice, once in the PACU and once in the intensive care unit, both for less than 2 or 3 minutes. PAST MEDICAL HISTORY: Usd-efqvsec-hcyeovmkb diabetes mellitus, coronary artery disease with history of positive stress test and refusal of cardiac catheterization, ischemic cardiomyopathy, ejection fraction 25%, chronic atrial fibrillation, on Coumadin also as an outpatient, end-stage renal disease, on hemodialysis since 08/2015, hypothyroidism, hypertension, GI bleed. PAST SURGICAL HISTORY: Status post new AV fistula placement on 04/30/2016, status post pacer and AICD placement in 2009, fissure placement in the right arm, and right internal jugular hemodialysis catheter placement. ALLERGIES: No known drug allergies. OUTPATIENT MEDICATIONS: Allopurinol, amlodipine, aspirin, atorvastatin, timolol eyedrops, carvedilol, glipizide, hydralazine, insulin sliding scale, Lantus, Imdur, levothyroxine, metolazone, Ocuvite PreserVision, Percocet, Protonix, MiraLax, travoprost eyedrops, Coumadin. All of these doses were reviewed and are located in the medication reconciliation in the chart. SOCIAL HISTORY: He is and quit smoking 55 years ago. He ambulates with a cane. FAMILY HISTORY: Noncontributory. REVIEW OF SYSTEMS: Not obtainable due to his intubated state. PHYSICAL EXAMINATION: GENERAL: This is a chronically ill-appearing gentleman, primarily unresponsive surrounding the codes. VITAL SIGNS: Temperature 36.8, heart rate 89, respiratory rate 20, blood pressure 151/88, oxygen saturation 100%. Ventilator settings are assist control, tidal volume 500, rate 20, FiO2 100%, PEEP 15. NEUROLOGIC: He will awaken at times and seems to nod his head to questions but does not follow commands. He moves all 4 extremities but not with purpose. HEENT: Pupils are difficult to evaluate. They are equal. No scleral icterus. Oral exam deferred due to the endotracheal tube being in place. NECK: Neck veins are moderately distended. Trachea is midline. LUNGS: Have some bibasilar rales and sounds on the left are much less than on the right. There are some rhonchi on the right as well. No wheezes. HEART: Irregular. I do not hear any murmurs. CHEST: Has symmetric expansion. There is a pacemaker palpable in the left infraclavicular region. There is a hemodialysis catheter in the left infraclavicular area. ABDOMEN: Mildly distended, soft, hypoactive bowel sounds. EXTREMITIES: Cool. The dressing over the incision on the right hip is clean, dry and intact. There is minimal amount of swelling. Distal pulses are 1+. There is a right upper extremity fistula. Bilateral upper extremities have 2+ edema. SKIN: Dry and flaking on the upper extremities. LABORATORY DATA: White blood cell count 10.7, hemoglobin 10.4, hematocrit 31.5, platelets 121. Sodium 139, potassium 4.7, chloride 104, CO2 20, BUN 27, creatinine 3.3. Blood sugar 185. Lactic acid 7.0. Calcium 7.1. AST 0.3, ALT less than 6. Troponin 0.12. Albumin 2.5. PTT 37.1. pH 7.32, pCO2 of 49, pO2 of 420, HCO3 of 26. Initial ABG: pH 7.30, pCO2 of 40, pO2 of 50, HCO3 of 19. Blood cultures are pending. CT of the chest shows no definite pulmonary emboli, although the evaluation of segmental and subsegmental pulmonary arteries is compromised. Moderate cardiomegaly, trace bilateral pleural effusions, mild pulmonary edema and scattered ground-glass and nodular opacities as well as anasarca. Chest x-ray post-intubation was reviewed and shows the endotracheal tube to be 5.8 cm above the dorothy, left lower lobe opacity with volume loss, may reflect atelectasis or pneumonia, mild interstitial thickening suggesting pulmonary edema, suspect small left pleural effusion. EKG was reviewed and shows atrial fibrillation with some paced beats and what may be lateral T-wave inversions. IMPRESSION: 1. Status post fall resulting in right humerus fracture and right hip fracture, status post cemented hemiarthroplasty of the right hip 05/05/2016. 2. Postoperative hypoxemia, hypotension and cardiac arrest. No pulmonary embolism identified. Troponins are mildly elevated in the face of an elevated creatinine. EKG is difficult to interpret secondary to the paced rhythm. Fat embolism is on the differential. 3. Acute hypoxemic respiratory failure status post bronchoscopy. He may have aspirated and it looks as if he has some underlying interstitial lung disease as well. No definite pulmonary embolism. 4. Ischemic cardiomyopathy, ejection fraction 25%, status post stat echocardiogram with preliminary read of no pericardial effusion or tamponade. Ejection fraction likely unchanged. 5. End-stage renal disease, status post new arteriovenous fistula creation on 04/30/2016. Status post dialysis on 05/05/2016. 6. History of atrial fibrillation as well as pacemaker and automated implantable cardioverter-defibrillator placement. 7. Zcs-aaspsdk-ajgtrizaa diabetes mellitus. 8. Hypothyroidism. PLAN: NEUROLOGIC: Continue to sedate with fentanyl. I am encouraged that he was following some commands status post cardiac arrest as well as his episode of hypoxemia. Treat pain with p.r.n. fentanyl as well. PULMONARY: Continue to support on the ventilator. I have ordered bronchodilators and will give him some IV steroids as well. His chest x-ray is not impressive enough for me to think that his hypoxemia is all related to pulmonary edema. He is on a heparin infusion in the case that he does have a pulmonary embolism. This will also cover him for any cardiac event. CARDIOVASCULAR: Continue dobutamine as well as Levophed. Wean the Levophed for a systolic blood pressure of 100. IV access is yet to be determined and he will more than likely need a triple-lumen catheter. Rule out myocardial infarction with serial cardiac enzymes and await echocardiogram results. RENAL: I discussed the patient's care with the renal service regarding potentially needing some urgent hemodialysis or at least dialysis tomorrow. I also discussed the CT scan with contrast before it was performed. Hopefully, he will be stable enough to receive some dialysis tomorrow. INFECTIOUS DISEASE: He has been pancultured and started on vancomycin and Zosyn. He may have aspirated or be developing a pneumonia, although it does not necessarily show on CT scan. GASTROINTESTINAL: Maintain n.p.o. status overnight tonight. Begin trickle feeds tomorrow. He is getting GI prophylaxis. HEMATOLOGY: Watch for signs of bleeding secondary to the heparin infusion. I discussed the risk versus benefit of heparin with both the patient's and daughter Brigitte. I also discussed it with the orthopedic service. MISCELLANEOUS: He will likely need alternative IV access. I will talk to his about triple-lumen catheter. Hopefully, we will be able to wean off his vasopressors as well. Continue to keep the head of bed at 30 degrees. I discussed the patient's care in detail with his daughter Brigitte as well as his . His is very overwhelmed and I am not sure she understands how ill he is. Critical care time excluding procedures is 120 minutes. [facility]
[2016-05-06] MEDS: PIPERACILL/TAZOBAC IV 3.375 GM in DEXTROSE 5% 100ML IV SCH ×2 (02:10→15:44)
[2016-05-06] MEDS ORDERED: LEValbuterol HFA 15GM INHALER INH SCH (03:00)
[2016-05-06] MEDS ORDERED: IPRATROPIUM BROMIDE HFA INHALER INH SCH (03:00)
[2016-05-06 03:26] LABS: PARTIAL THROMBOPLASTIN RATIO > 11.0
[2016-05-06 04:33] LABS: BASO % 0.1 %; BASO ABS # 0.02 K/uL (0-0.2); COMPLETE YES; EOS % 0.4 %; HEMATOCRIT 29.5 % (42-52); IG% 0.6 %; LYMPH % 6.9 %; LYMPH ABS # 0.96 K/uL (1.2-3.4); MEAN CELL VOLUME 106.1 fL (80-100); MEAN CORPUSCULAR HEMOGLOBIN 35.3 pg (25-34); MEAN CORPUSCULAR HGB CONC 33.2 g/dl (32-36); MONO % 7.8 %; NEUT % 84.2 %; PLATELET COUNT 155 K/uL (130-400); RED BLOOD COUNT 2.78 M/uL (4.7-6.1)
[2016-05-06] MEDS: NOREPINEPHRINE BIT INJ 8 MG in DEXTROSE 5% 500ML 500 ML IV PRN ×3 (04:35→23:06)
[2016-05-06 04:52] LABS: BUN/CREATININE RATIO 8.9 (10-20); CALCIUM 6.6 mg/dl (8.5-10.1); CREATININE 4.1 mg/dl (0.60-1.40); MAGNESIUM 2.3 mg/dl (1.8-2.4); POTASSIUM 4.8 mmol/L (3.5-5.1)
[2016-05-06 04:57] LABS: CKMB/CK RATIO 1.9 (0-3.0); PHOSPHORUS 6.3 mg/dl (2.5-4.9)
[2016-05-06 05:24] LABS: INR 1.4 (0.9-1.1); PARTIAL THROMBOPLASTIN RATIO 4.5; PROTHROMBIN TIME (PATIENT) 15.4 SECONDS (9.0-12.0)
[2016-05-06] MEDS: LEVOTHYROXINE 150 MCG TAB PO SCH (06:00)
[2016-05-06 06:19] LABS: PARTIAL THROMBOPLASTIN RATIO 2.3
[2016-05-06] MEDS: INSULIN ASPART 100 UNITS/ML 3 ML PEN SC SCH ×3 (06:45→20:09)
--- NOTE | 2016-05-06 07:43 | DIAGNOSTIC IMAGING REPORT ---
CHEST ONE VIEW PORTABLE CLINICAL HISTORY: respiratory failure COMPARISON STUDY: 05/05/2016 FINDINGS: 6 the study is somewhat limited from a technical standpoint. There is a suspected endotracheal tube 6.4 cm above the dorothy. There is a nasogastric tube which passes in the stomach. There is a right internal jugular dual-lumen central venous catheter. There is a left subclavian implantable defibrillator. The heart remains enlarged. There is radiographic evidence of mild congestive failure/fluid overload. There is no evidence of lobar consolidation.[ IMPRESSION: Cardiomegaly and radiographic evidence of mild congestive failure/fluid overload. No evidence of lobar consolidation Electronically signed by: Chris Guthrie M.D. 05/06/2016 7:41 AM Dictated Date/Time: 05/06/2016 7:39 AM
[2016-05-06] MEDS ORDERED: FENTANYL CITRATE INJ 50 MCG/1 ML 2 ML VIAL IV PRN (07:45)
--- NOTE | 2016-05-06 08:24 | Orthopedic Progress Note ---
Orthopedic Progress Note Date of Service May 06, 2016. Subjective Post OP Day: 1 Additional Notes: INTUBATED RESPONDS MINIMALLY Objective hip located SCANT DRAINAGE ON DRESSING THIGH SOFT Date Time Temp Pulse Resp B/P Pulse Ox O2 Delivery O2 Flow Rate FiO2 05/06/16 05:34 70 05/06/16 05:00 61 16 105/35 100 05/06/16 04:45 67 19 105/36 100 05/06/16 04:30 65 17 91/32 100 05/06/16 04:15 64 16 105/35 100 05/06/16 04:00 100 Mechanical Ventilator 70 05/06/16 04:00 36.5 64 17 108/36 100 Mechanical Ventilator 70 05/06/16 04:00 100 05/06/16 03:45 61 15 108/36 100 05/06/16 03:30 67 15 116/38 100 05/06/16 03:15 69 12 133/41 100 05/06/16 03:00 70 16 115/36 100 05/06/16 02:45 81 16 99/35 100 05/06/16 02:35 80 05/06/16 02:30 64 13 102/35 100 05/06/16 02:15 67 12 110/36 100 05/06/16 02:00 60 12 99/33 100 05/06/16 01:45 73 14 112/36 100 05/06/16 01:30 64 13 114/34 100 Mechanical Ventilator 05/06/16 01:15 66 13 134/38 100 05/06/16 01:00 69 17 149/40 100 Mechanical Ventilator 05/06/16 00:45 61 17 155/42 100 05/06/16 00:30 69 18 132/38 100 Mechanical Ventilator 80 05/06/16 00:15 66 15 106/34 100 05/06/16 00:00 100 Mechanical Ventilator 80 05/06/16 00:00 36.5 68 17 115/36 100 Mechanical Ventilator 80 05/06/16 00:00 100 05/05/16 23:45 62 16 103/33 100 05/05/16 23:27 90 05/05/16 23:00 64 18 109/34 100 05/05/16 22:30 67 12 98 Mechanical Ventilator 05/05/16 21:30 66 14 153/43 100 05/05/16 21:00 66 13 149/43 100 Mechanical Ventilator 05/05/16 20:30 63 8 150/43 100 05/05/16 20:00 100 05/05/16 20:00 62 19 117/39 98 Mechanical Ventilator 05/05/16 20:00 100 Mechanical Ventilator 100 05/05/16 19:30 66 4 146/47 99 05/05/16 19:00 69 1 144/49 98 Mechanical Ventilator 05/05/16 18:50 100 05/05/16 17:26 89 151/88 05/05/16 17:21 68 102/51 05/05/16 17:11 78 143/79 05/05/16 17:01 60 82/41 63 Non-Rebreather 15 05/05/16 16:55 74 16 82/41 87 Non-Rebreather 15 05/05/16 16:48 65 21 91 Non-Rebreather 15.0 05/05/16 16:45 64 16 98/43 91 Non-Rebreather 15 05/05/16 16:35 36.8 61 16 98/41 91 Non-Rebreather 15 NIBP 05/05/16 12:45 62 18 104/43 97 Nasal Cannula 05/05/16 12:44 36.4 61 18 119/64 96 Nasal Cannula 2.0 05/05/16 12:30 Nasal Cannula 2.0 05/05/16 12:26 36.4 61 18 119/64 96 Nasal Cannula 05/05/16 12:09 36.7 60 105/47 05/05/16 12:00 59 90/50 05/05/16 11:45 68 105/53 05/05/16 11:30 64 97/47 05/05/16 11:15 65 115/50 05/05/16 11:00 65 98/55 05/05/16 10:45 62 97/55 05/05/16 10:30 56 108/59 05/05/16 10:15 60 103/53 05/05/16 10:00 61 82/52 05/05/16 09:45 60 97/47 05/05/16 09:30 59 82/56 05/05/16 09:15 57 86/43 05/05/16 09:00 62 95/53 05/05/16 08:45 60 99/56 05/05/16 08:30 65 89/44 Laboratory Results 24 Hours: Test 05/05/16 17:20 05/06/16 04:25 White Blood Count 10.74 K/uL 13.90 K/uL Red Blood Count 2.95 M/uL 2.78 M/uL Hemoglobin 10.4 g/dL 9.8 g/dL Hematocrit 31.5 % 29.5 % Mean Corpuscular Volume 106.8 fL 106.1 fL Mean Corpuscular Hemoglobin 35.3 pg 35.3 pg Mean Corpuscular Hemoglobin Concent 33.0 g/dl 33.2 g/dl Platelet Count 121 K/uL 155 K/uL Mean Platelet Volume 10.8 fL 11.0 fL Neutrophils (%) (Auto) 58.4 % 84.2 % Lymphocytes (%) (Auto) 31.1 % 6.9 % Monocytes (%) (Auto) 6.8 % 7.8 % Eosinophils (%) (Auto) 3.1 % 0.4 % Basophils (%) (Auto) 0.3 % 0.1 % Neutrophils # (Auto) 6.28 K/uL 11.69 K/uL Lymphocytes # (Auto) 3.34 K/uL 0.96 K/uL Monocytes # (Auto) 0.73 K/uL 1.08 K/uL Eosinophils # (Auto) 0.33 K/uL 0.06 K/uL Basophils # (Auto) 0.03 K/uL 0.02 K/uL Prothromb Time International Ratio 1.4 Prothrombin Time 15.4 SECONDS Assessment & Plan Assessment: RIGHT HIP FRACTURE PPOD 1 HEMIARTHROPLASTY HYPOXIA HYPOTENSION Plan: SUSPECT POSSIBLE FATTY EMBOLI SHOWER ON AN ALREADY POORLY COMPRIMISED CARDIO PULMONARY SYTEM DOUBT BLOOD EMBOLI HIP STABLE FOR POSITIONING ETC OK TO [facility] AGGRESSIVE ANTICOAGULATION Inhouse Planning Pain Management: Percocet, Morphine DVT Prophylaxis: TEDs, SCDs, Heparin Drip
[2016-05-06] MEDS ORDERED: DOBUTAMINE 500MG / D5W IV PRN (09:00)
--- NOTE | 2016-05-06 09:02 | ECHOCARDIOGRAM REPORT ---
*NOTICE TO RECEIVING REPUBLICAN AGENCY This information is strictly Confidential and protected under [place] law. [place] law prohibits you from making any further disclosure of this information unless further disclosure is expressly permitted by the written consent of the person to whom it pertains or is authorized by law. A general authorization for the release of medical or other information is not sufficient for this purpose. Hospital accepts no responsibility if the information is made available to any other person, INCLUDING THE PATIENT. Interpretation Summary * Name: NANNETTE STOUT Study Date: 05/05/2016 07:57 PM BP: 151/88 mmHg * Patient Location: E108 HR: 89 * : 1935 (M/d/yyyy) Gender: Male Height: 71 in * Age: 81 yrs Ethnicity: [place] Weight: 190 lb * Referring Physician: Dony Murray DO * Performed By: Rosie Zhang RCS * * Reason For Study: S/P Code X2, Eval LV Function, Eval for Pericardial Effusion * BSA: 2.1 m2 * -- Conclusions -- * The left ventricle is severely dilated. * Left ventricular systolic function is severely reduced. * Ejection Fraction = 15-20%. * Severe global hypokinesis. * Borderline right ventricular enlargement. * The base of the RV moves well with the apical free wall hypokinetic. * Aortic valve sclerosis mild, without significant aortic valvular stenosis. * There is no pericardial effusion. Procedure Details * A two-dimensional transthoracic echocardiogram was performed. * A two-dimensional transthoracic echocardiogram, with color flow Doppler was performed. * Limited views were obtained. * Patient supine and vented for imaging. Left Ventricle * The left ventricle is severely dilated. * Left ventricular systolic function is severely reduced. * Ejection Fraction = 15-20%. * There is severe global hypokinesis. Right Ventricle * Borderline right ventricular enlargement. * There is a pacemaker lead in the right ventricle. * The base of the RV moves well with the apical free wall hypokinetic. Atria * The left atrium is moderately dilated. * The right atrium is moderately dilated. Mitral Valve * The mitral valve is grossly normal. Tricuspid Valve * The tricuspid valve is not well visualized, but is grossly normal. * There is mild tricuspid regurgitation. Aortic Valve * Aortic valve sclerosis mild, without significant aortic valvular stenosis. Pericardium/Pleural * There is no pericardial effusion. MMode 2D Measurements and Calculations LVAd ap4 36.4 cm\S\2 LVLd ap4 8.6 cm EDV(MOD-sp4) 128.0 ml LVAs ap4 30.5 cm\S\2 LVLs ap4 8.1 cm ESV(MOD-sp4) 98.0 ml EF(MOD-sp4) 23.4 % LVAd ap2 42.6 cm\S\2 LVLd ap2 9.3 cm EDV(MOD-sp2) 162.0 ml LVAs ap2 38.4 cm\S\2 LVLs ap2 9.6 cm ESV(MOD-sp2) 127.0 ml EF(MOD-sp2) 21.6 % CO(MOD-sp4) 2.7 l/min CI(MOD-sp4) 1.3 l/min/m\S\2 SV(MOD-sp4) 30.0 ml SI(MOD-sp4) 14.5 ml/m\S\2 CO(MOD-sp2) 3.2 l/min CI(MOD-sp2) 1.5 l/min/m\S\2 SV(MOD-sp2) 35.0 ml SI(MOD-sp2) 17.0 ml/m\S\2
[2016-05-06 09:16] LABS: ISTAT ARTERIAL BLOOD GAS HCO3 24 meq/L (19-24); ISTAT ARTERIAL BLOOD GAS PCO2 48 mmHg (35-46); ISTAT ARTERIAL BLOOD GAS PO2 284 mmHg (80-95); ISTAT CARBON DIOXIDE 25 mEq/l (24-31); ISTAT DELIVERY SYSTEM Ventilator; ISTAT FIO2 60 %; ISTAT PEEP 14; ISTAT RATE 18; ISTAT SITE Art Line; VE 9.7; Vt 500
--- NOTE | 2016-05-06 09:58 | NEPHROLOGY PROGRESS NOTE ---
DATE: 05/06/2016 DATE: 05/06/2016. SUBJECTIVE: Mr. Morrow is currently sedated and unresponsive on a ventilator. The events of yesterday postoperatively were reviewed by reviewing the chart and discussion with Dr. Romeo, the stove cleaner caring for him at the current time. In summary, he went through a surgical procedure without apparent difficulty or complications. He had a cemented a right hip hemiarthroplasty. Oxygen desaturations during the procedure were in the low 90s on 100% FIO2. Postoperatively, he went to the postanesthesia care unit and was extubated. Apparently not long thereafter he became hypoxic and poorly responsive and hypotensive. A code blue was called and he was found to be pulseless. He was reintubated and given 0.5 mg of epinephrine. He was noted to have pulseless electrical activity and was given another 0.5 mg of epinephrine. There was some difficulty in obtaining an oxygen saturation. His blood pressure was quite variable from a systolic pressure of 90 to one of 200. He was given a 2 liter bolus of IV fluids and transferred to the intensive care unit. Upon arrival, he had already been placed on Levophed drip. Dobutamine drip was added to his regimen. Oxygen saturations remained low in the 70s and 80s. Breath sounds were absent on the left side. A chest x-ray did not show evidence of a pneumothorax. Dr. Romeo performed an emergent bronchoscopy. A moderate amount of pastrana secretions were noted in the left lower lobe but no significant mucous plugs were observed. He was placed on pressure control ventilation and his oxygen saturations improved. Mr. Mrorow remained poorly responsive. He was sedated but apparently did follow some very simple commands. His workup included an echocardiogram. An unofficial report did not suggest any significant decline in his already low ejection fraction. A CT angiogram of his chest showed no definite evidence of an acute pulmonary embolus. He was initially on a fentanyl drip, but overnight was placed on Diprivan drip. He was maintained on dobutamine and Levophed drips with cautious weaning. His blood pressure has remained relatively stable. Oxygen saturations have been quite good and his FIO2 has been decreased. Currently, he remains markedly sedated and it is difficult to assess his mental status. Currently, he is on a Diprivan drip at a rate of 4 mcg per kilogram per minute. He is also on a dobutamine drip at 4 mcg per kilogram per minute and Levophed drip of 0.3 mcg per kilogram per minute. OBJECTIVE: GENERAL: On physical exam at the current time, Mr. Morrow is obviously sedated on a ventilator. He does occasionally spontaneously move his right leg, but has no other spontaneous movements and is not arousable by typical painful stimuli or calling his name. VITAL SIGNS: Current blood pressure is 126/44 with a pulse of 60 (paced rhythm on the monitor), his oxygen saturation is 100%. He is afebrile (36.5). SKIN: Shows normal skin turgor. He has some minimal ecchymoses on his right upper arm and significant ecchymoses around the left antecubital fossa as well as the left upper arm and forearm related to his recent fistula surgery. He has multiple lines in place including a right IJ catheter. He has a ICD beneath the distal left clavicle. 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 LYMPHATICS: Show no palpable lymphadenopathy. HEAD: Grossly normal. EYES: Show pupils to be pinpoint. He has no conjunctival icterus. EARS, NOSE, MOUTH AND THROAT: Difficult to completely evaluate because of the presence of an endotracheal tube. NECK: Supple. He has jugular venous distention about 2-3 cm above the angle of the jaw while lying at about 20 degrees. I do not detect any definite carotid murmurs at this time. He has no thyromegaly. CHEST: Clear to auscultation. CARDIAC EXAMINATION: Shows a regular rhythm (paced). He has a soft systolic murmur at the base radiating toward the neck. He also has a systolic murmur at the apex radiating toward the axilla. ABDOMEN: Nontender. There is no organomegaly or mass. Bowel sounds are present. He does have an NG tube in place. I do not hear any abdominal bruits. EXTREMITIES: Show the skin changes noted above. There is swelling of his left arm at the recent surgical site. He has the ecchymoses noted. He has the changes of venous stasis dermatitis noted on his lower extremities. There is no obvious calf swelling or cord present. NEUROLOGIC EXAMINATION: Difficult to assess because of his Diprivan drip. He does move his right leg spontaneously. Plantar responses are difficult to elicit. PERTINENT LABORATORY WORK: From today shows a white count of 13,900 with 84.2% neutrophils, 6.9% lymphocytes, 7.8% monocytes and 0.4% eosinophils and 0.1% basophils. His hemoglobin is 9.8. His hematocrit 29.5. Red cell indices are macrocytic, his platelet count is 155,000. His PTT is 59.7 with a PTTR of 2.3. He had been on a heparin drip earlier when the study was done. Clinical chemistries from 4:30 this morning show a sodium of 133 mmol/L, potassium 4.8 mmol/L, chloride 97 mmol/L, and CO2 content 23 mmol/L. His anion gap according to his electrolytes is 13, but accounting for his hypoalbuminemia (2.5 g/dL) his anion gap is more likely in the range of about 16-17. His troponin is 0.204. Liver function studies are unremarkable other than an AST of 65 and a direct bilirubin slightly elevated at 0.4. ASSESSMENT: After very difficult day, Mr. Morrow seems to be stable at the current time. The etiology of his episode of cardiopulmonary arrest is difficult to say. There is no definite evidence of pulmonary emboli or myocardial infarction. He did not have significant mucus plugs. Given the nature of the surgery that he had it is possible that he had acute fat emboli, although if that is the case his recovery seemed to be fairly quick from that. PLAN: Continue with support. At the current time he does not appear to be significantly volume overloaded. The only potential indication for dialysis is some degree of metabolic acidosis with his elevated anion gap. Arterial blood gases were not done but might be helpful in assessing his full acid base status. Nevertheless, I think another 24 hours to continue his stabilization is warranted before we attempt any further hemodialysis. Additional lines will be placed by Dr. Romeo. Certainly for his time on dialysis tomorrow we will need to use his dialysis catheter which has been used for other medications. Unfortunately, his long-term prognosis after this event is poor. At a minimum, I would expect that he will have to increase the frequency of his dialysis treatments to 3 times a week. However, at the current time that would seem to be the least of our concerns.
--- NOTE | 2016-05-06 10:10 | Anesthesiology Progress Note ---
Anesthesia Post Op Note Date & Time May 06, 2016 at 10:04 Vital Signs Pain Intensity: 0.0 Vital Signs Past 12 Hours Date Time Temp Pulse Resp B/P Pulse Ox O2 Delivery O2 Flow Rate FiO2 05/06/16 05:34 70 05/06/16 05:00 61 16 105/35 100 05/06/16 04:45 67 19 105/36 100 05/06/16 04:30 65 17 91/32 100 05/06/16 04:15 64 16 105/35 100 05/06/16 04:00 100 Mechanical Ventilator 70 05/06/16 04:00 36.5 64 17 108/36 100 Mechanical Ventilator 70 05/06/16 04:00 100 05/06/16 03:45 61 15 108/36 100 05/06/16 03:30 67 15 116/38 100 05/06/16 03:15 69 12 133/41 100 05/06/16 03:00 70 16 115/36 100 05/06/16 02:45 81 16 99/35 100 05/06/16 02:35 80 05/06/16 02:30 64 13 102/35 100 05/06/16 02:15 67 12 110/36 100 05/06/16 02:00 60 12 99/33 100 05/06/16 01:45 73 14 112/36 100 05/06/16 01:30 64 13 114/34 100 Mechanical Ventilator 05/06/16 01:15 66 13 134/38 100 05/06/16 01:00 69 17 149/40 100 Mechanical Ventilator 05/06/16 00:45 61 17 155/42 100 05/06/16 00:30 69 18 132/38 100 Mechanical Ventilator 80 05/06/16 00:15 66 15 106/34 100 05/06/16 00:00 100 Mechanical Ventilator 80 05/06/16 00:00 36.5 68 17 115/36 100 Mechanical Ventilator 80 05/06/16 00:00 100 05/05/16 23:45 62 16 103/33 100 05/05/16 23:27 90 05/05/16 23:00 64 18 109/34 100 05/05/16 22:30 67 12 98 Mechanical Ventilator Notes patient is in ICU bed 8 following a pacu code. On am rounds patient remains sedated on ventilator, hemodynamically stable See ICU notes.
[2016-05-06] MEDS ORDERED: VANCOMYCIN CONSULT ACTIVE PRN (10:15)
[2016-05-06] MEDS ORDERED: LEVETIRACETAM IV ONE (10:30)
[2016-05-06] MEDS ORDERED: VANCOMYCIN INJ 1,700 MG in SODIUM CHLORIDE 0.9% 500ML 500 ML IV SCH (10:30)
[2016-05-06] MEDS ORDERED: NSS IV ONE (10:30)
[2016-05-06] MEDS ORDERED: [UNRECOGNIZED DRUG - OTHER] IV ONE (10:30)
[2016-05-06] MEDS ORDERED: PREMIXED IV ONE (10:30)
[2016-05-06] MEDS ORDERED: LEVETIRACTAM 1000 MG in DEXTROSE 5% 100ML IV ONE (10:45)
--- NOTE | 2016-05-06 11:02 | ECHOCARDIOGRAM REPORT ---
*NOTICE TO RECEIVING CONSTITUTION PARTY AGENCY This information is strictly Confidential and protected under [place] law. [place] law prohibits you from making any further disclosure of this information unless further disclosure is expressly permitted by the written consent of the person to whom it pertains or is authorized by law. A general authorization for the release of medical or other information is not sufficient for this purpose. Hospital accepts no responsibility if the information is made available to any other person, INCLUDING THE PATIENT. Interpretation Summary * Name: NANNETTE STOUT Study Date: 05/03/2016 03:05 PM BP: 110/74 mmHg * Patient Location: C.2T\S\E215\S\1 HR: 60 * : 1935 (M/d/yyyy) Gender: Male Height: 71 in * Age: 81 yrs Ethnicity: CA Weight: 186 lb * Ordering Physician: Quentin Joseph * Referring Physician: Self, Referred * Performed By: Daniel Bernstein RDCS * * Reason For Study: Possibly going to surgery (EF 20-25%) * BSA: 2.0 m2 * -- Conclusions -- * Left ventricular systolic function is severely reduced. * There is severe global hypokinesis of the left ventricle. * Ejection Fraction = 20-25%. * There is mild to moderate mitral regurgitation. * There is moderate tricuspid regurgitation. * Trace aortic regurgitation. * Compared with study dated 08/30/2015, no significant change. Procedure Details * A complete two-dimensional transthoracic echocardiogram was performed (2D, M-mode, Doppler and color flow Doppler). * The study was technically adequate. Left Ventricle * The left ventricle is moderately dilated. * Left ventricular systolic function is severely reduced. * Ejection Fraction = 20-25%. * There is severe global hypokinesis of the left ventricle. Right Ventricle * The right ventricle is not well visualized. * There is a pacemaker lead in the right ventricle. * The right ventricular systolic function is reduced as assessed by tricuspid annular plane systolic excursion (TAPSE) (TAPSE <1.6 cm). Atria * The left atrium is moderately dilated. * The right atrium is moderately dilated. * There is no evidence of atrial septal defect, but resolution does not allow assessment for a patent foramen ovale. Mitral Valve * The mitral valve is grossly normal. * There is no mitral valve stenosis. * There is mild to moderate mitral regurgitation. Tricuspid Valve * The tricuspid valve is not well visualized, but is grossly normal. * There is moderate tricuspid regurgitation. * Right ventricular systolic pressure is elevated at 40-50mmHg. Aortic Valve * The aortic valve is tricuspid. The leaflet thickness if normal. There is no aortic stenosis, and no significant insufficiency. * The aortic valve opens well. * Aortic valve sclerosis mild, without significant aortic valvular stenosis. * Trace aortic regurgitation. Pulmonic Valve * The pulmonary valve is not well seen, but the Doppler examination is normal without significant regurgitation or stenosis. * Trace pulmonic valvular regurgitation. Great Vessels * The aortic root is normal size. * The pulmonary is not well visualized. Pericardium/Pleural * There is no pericardial effusion. Great Vessels * Dilated inferior vena cava with reduced collapsability with sniff indicates an elevated right atrial pressure of 15 mmHg MMode 2D Measurements and Calculations IVSd 1.0 cm IVSs 1.1 cm LVIDd 7.1 cm LVIDs 6.6 cm LVPWd 1.0 cm LVPWs 1.1 cm IVS/LVPW 0.99 FS 7.3 % EDV(Teich) 264.3 ml ESV(Teich) 223.0 ml EF(Teich) 15.6 % EDV(cubed) 359.0 ml ESV(cubed) 286.5 ml EF(cubed) 20.2 % % IVS thick 6.8 % % LVPW thick 6.3 % LV mass(C)d 343.1 grams LV mass(C)dI 167.8 grams/m\S\2 LV mass(C)s 326.9 grams LV mass(C)sI 159.9 grams/m\S\2 SV(Teich) 41.3 ml SI(Teich) 20.2 ml/m\S\2 SV(cubed) 72.6 ml SI(cubed) 35.5 ml/m\S\2 EPSS 1.9 cm Ao root diam 3.9 cm Ao root area 12.1 cm\S\2 ACS 1.8 cm LA dimension 5.2 cm asc Aorta Diam 3.1 cm LA/Ao 1.3 LVOT diam 2.1 cm LVOT area 3.6 cm\S\2 LVAd ap4 38.2 cm\S\2 LVLd ap4 8.7 cm EDV(MOD-sp4) 141.0 ml LVAs ap4 31.6 cm\S\2 LVLs ap4 8.1 cm ESV(MOD-sp4) 105.0 ml EF(MOD-sp4) 25.5 % LVAd ap2 38.9 cm\S\2 LVLd ap2 8.2 cm EDV(MOD-sp2) 157.0 ml LVAs ap2 34.1 cm\S\2 LVLs ap2 8.1 cm ESV(MOD-sp2) 120.0 ml EF(MOD-sp2) 23.6 % SV(MOD-sp4) 36.0 ml SI(MOD-sp4) 17.6 ml/m\S\2 SV(MOD-sp2) 37.0 ml SI(MOD-sp2) 18.1 ml/m\S\2 Doppler Measurements and Calculations MV E max ford 101.8 cm/sec MV A max ford 26.5 cm/sec MV E/A 3.8 MV dec time 0.14 sec Ao V2 max 120.2 cm/sec Ao max PG 5.8 mmHg Ao max PG (full) 2.1 mmHg FREDDY(V,A) 2.9 cm\S\2 FREDDY(V,D) 2.9 cm\S\2 AI max ford 288.5 cm/sec AI max PG 33.5 mmHg AI dec slope 99.0 cm/sec\S\2 AI P1/2t 854.0 msec LV V1 max PG 3.7 mmHg LV V1 max 95.6 cm/sec PA V2 max 84.2 cm/sec PA max PG 2.8 mmHg PI end-d ford 164.9 cm/sec TR max ford 322.4 cm/sec
--- NOTE | 2016-05-06 11:59 | DIAGNOSTIC IMAGING REPORT ---
CHEST ONE VIEW PORTABLE CLINICAL HISTORY: Central line placement COMPARISON STUDY: Chest radiograph May 06, [address] May 05, 2016. FINDINGS: There has been interval placement of a left internal jugular central line. The catheter tip projects over the left brachiocephalic vein. There is no pneumothorax. Interstitial thickening is unchanged. Cardiomegaly is unchanged. A left subclavian pacemaker/AICD and right internal jugular dual lumen catheter remain in place. The tip of the nasogastric tube is below the lower aspect of this image but at least within the proximal stomach. The tip of the endotracheal tube is 11.4 cm above the dorothy. There has been partial interval withdrawal since study performed earlier today. IMPRESSION: 1. No pneumothorax following placement of a left internal jugular central line. 2. Tip of endotracheal tube 11.4 cm above the dorothy. The tube could be advanced 4 cm. Electronically signed by: Jorge Pardo M.D. 05/06/2016 11:57 AM Dictated Date/Time: 05/06/2016 11:55 AM
--- NOTE | 2016-05-06 12:07 | Procedure Note ---
Procedure Note Procedure Date May 06, 2016. (Torie Warren PA-C) Procedure Description Comments: I was present throughout the entire procedure and reviewed the chest xray. (Hien Romeo MD) Central Line Procedure time out: side/site verified, patient ID confirmed, sterile procedure used Consent obtained: written Time of procedure: 11:10 Performed by: physician student union consultant Indications: central drug admin. Prep: chlorhexadine prep, sterile drape, sterile procedures used Anesthesia: lidocaine 1% without epi Volume anesthetic (ml's): 5 Central line lumen: triple Central line location: internal jugular (L) Additional details: percutaneous placement, Selinger technique used, line sutured, good blood return, other (Heparin infusion was discontinued 1.5 hours prior procedure) CXR: appropriate position, no pneumothorax Complications: none Patient tolerated procedure: well Post-procedure vital signs: reviewed and stable Comments: Written consent was obtained prior to procedure from spouse by Dr. Hien Romeo. Indication, risks, and benefits were explained at length. Procedure: Procedure was performed under strict sterile field in O.R. fashion; wearing masl , hair net, and sterile gloves/gown. The left neck and shoulder were cleaned with chloroprep scrub and the pt was draped in sterile fashion. The internal jugular vein was identified using ultrasound. After anesthetizing the area with 5cc of lidocaine, venous blood was withdrawn after accessing the vein under ultrasound guidance. The syringe was removed and a guide wire was advanced into the introducer needle which met resistance and was withdrawn. The internal jugular was again identified using ultrasound, the vein was again accessed with redirection of the needle. The guide wire was advanced into the introducer needle, after the introducer needle was removed, an angiocatheter was placed over the guide wire into the vessel to allow careful manipulation of the guide wire. The guide wire met minimal resistance. The dilator was advanced after being exchanged for the angiocatheter. After appropriate dilation was obtained, the dilator was removed and the central catheter was placed over the guide wire using Seldinger technique. The wire was removed and the catheter was sutured at 19cm. A surgical dressing was placed over the catheter with a biofilm shield in place. At the time of the procedure each port was aspirated and then flushed properly. Pt tolerated the procedure well with no complications. Post procedure x-ray was completed, placement was appropriate and no pneumothorax was noted. (Torie Warren, TELLYC)
[2016-05-06] MEDS: BRIMONIDINE TARTRATE-TIMOLOL M 1 DROP BTL OP SCH ×2 (12:13→20:37)
[2016-05-06] MEDS: ATORVASTATIN 40 MG TAB PO SCH (12:14)
[2016-05-06 12:15] LABS: HEMATOCRIT 26.9 % (42-52)
[2016-05-06] MEDS: CHLORHEXIDINE GLUCONATE 0.12% 480 ML MT SCH ×2 (12:15→20:36)
[2016-05-06] MEDS: PANTOprazole INJ 40 MG in SYRINGE 0 ML IV SCH (12:15)
--- NOTE | 2016-05-06 13:07 | CARDIOLOGY PROGRESS NOTE ---
DATE: 05/06/2016 SUBJECTIVE: Mr. Morrow is sedated and intubated in the intensive care unit. OBJECTIVE: VITAL SIGNS: Blood pressure is 105/40 with a pulse of 60. Respiratory rate is 16 and the patient is afebrile at 36.5 degrees Celsius. NECK: Supple with full carotid upstrokes. No obvious bruits. Jugular venous pressure is difficult to assess. CARDIOVASCULAR: Reveals a regular rhythm with distant heart sounds. A 1/6 basal systolic ejection murmur is noted. No S3. LUNGS: No coarse breath sounds throughout. CHEST: Reveals a palpable pacemaker in left subclavicular region. Dialysis catheter in the right subclavicular region. ABDOMEN: Soft without bruits. EXTREMITIES: Note no changes. DATA: CBC notes a hemoglobin of 9.8, hematocrit 29.5, white count 13.9, platelet count 155,000. Electrolytes note a sodium of 133, potassium 4.8, chloride 97, bicarbonate 23, BUN 36, creatinine 4.1, glucose 243. Troponin I level is 0.204. CK is 312 with an MB fraction of 5.9. EKG notes a ventricular paced rhythm. This is confirmed on telemetry. MEDICATIONS: 1. Dobutamine drip. 2. Fentanyl drip. 3. Vancomycin 1.7 grams IV x1. 4. Piperacillin/tazobactam 3.375 grams IV q. 12 hours. 5. Protonix 40 mg IV daily. 6. Norepinephrine drip. 7. Heparin drip. IMPRESSION AND PLAN: 1. Status post cardiac arrest -- etiology uncertain. Unfortunately, it appears he may have suffered anoxic injury. Currently being treated for refractory seizures. Echocardiogram performed last evening was essentially stable, noting poor left ventricular systolic function. Prognosis is poor. 2. Status post right total hip replacement. 3. Coronary artery disease -- inferolateral infarction on nuclear stress test 2009. 4. Ischemic cardiomyopathy -- ejection fraction of less than 20%. 5. Chronic systolic congestive heart failure -- volume managed by hemodialysis. 6. Status post single chamber implantable cardioverter defibrillator -- August 2015. 7. Permanent atrial fibrillation -- rate controlled. 8. Hypertension 9. Hypercholesterolemia. 10. End-stage renal disease -- per Dr. Ramirez. 11. Prognosis -- poor.
[2016-05-06] MEDS ORDERED: INSULIN HUMAN REGULAR IV BOLUS 2 UNIT in SYRINGE 0 ML IV SCH (13:15)
[2016-05-06] MEDS ORDERED: INSULIN REGULAR 250 UNITS in SODIUM CHLORIDE 0.9% 250ML 250 ML IV SCH (13:30)
--- NOTE | 2016-05-06 13:42 | Pharmacy Progress Note ---
Glycemic Control: Progress Nt Date of Service May 06, 2016. Scope Glycemic Pharmacist consulted by Dr Alves on 05/05/16 for glycemic control and to write orders per [facility] inpatient glycemic control protocol. Objective Accuchecks BSG (last 24hrs): Test 05/05/16 17:20 05/05/16 23:23 05/05/16 23:25 05/06/16 04:25 Random Glucose 185 mg/dl (70-99) 262 mg/dl (70-99) 243 mg/dl (70-99) Bedside Glucose 179 mg/dl (70-99) Test 05/06/16 05:46 05/06/16 12:25 Bedside Glucose 244 mg/dl (70-99) 211 mg/dl (70-99) Laboratory Data (last 24hrs) Test 05/05/16 17:20 05/05/16 23:25 05/06/16 04:25 Anion Gap 15.0 mmol/L 13.0 mmol/L 13.0 mmol/L BUN/Creatinine Ratio 8.2 8.9 8.9 Blood Urea Nitrogen 27 mg/dl 34 mg/dl 36 mg/dl Creatinine 3.30 mg/dl 3.80 mg/dl 4.10 mg/dl Potassium Level 4.7 mmol/L 4.4 mmol/L 4.8 mmol/L Sodium Level 139 mmol/L 135 mmol/L 133 mmol/L White Blood Count 10.74 K/uL 13.90 K/uL Red Blood Count 2.95 M/uL 2.78 M/uL Hemoglobin 10.4 g/dL 9.8 g/dL Hematocrit 31.5 % 29.5 % Mean Corpuscular Volume 106.8 fL 106.1 fL Mean Corpuscular Hemoglobin 35.3 pg 35.3 pg Mean Corpuscular Hemoglobin Concent 33.0 g/dl 33.2 g/dl Platelet Count 121 K/uL 155 K/uL Mean Platelet Volume 10.8 fL 11.0 fL Neutrophils (%) (Auto) 58.4 % 84.2 % Lymphocytes (%) (Auto) 31.1 % 6.9 % Monocytes (%) (Auto) 6.8 % 7.8 % Eosinophils (%) (Auto) 3.1 % 0.4 % Basophils (%) (Auto) 0.3 % 0.1 % Neutrophils # (Auto) 6.28 K/uL 11.69 K/uL Lymphocytes # (Auto) 3.34 K/uL 0.96 K/uL Monocytes # (Auto) 0.73 K/uL 1.08 K/uL Eosinophils # (Auto) 0.33 K/uL 0.06 K/uL Basophils # (Auto) 0.03 K/uL 0.02 K/uL HbA1c: Item Value Date Time Hemoglobin A1c 6.3 % H 08/28/15 0605 Recent Pertinent Medications Outpatient Anti-diabetic Regimen: * glipizide ER 5mg PO daily * NovoLog sliding scale * Lantus 12 untis SQ q AM The patient is currently receiving: * Basal insulin: Lantus current only hold * Correctional Insulin: NovoLog Correction per scale AC/HS Goal Range: Low 140 mg/dL - High 180 mg/dL Correction Factor: 40 mg/dL/unit * Prandial insulin: Per carb ratio of 1 unit per -- grams CHO consumed Risk Factors for Insulin Resistance: * Infection * Pressors * IVF * Recent Surgery: * Diet * *Mechanical Ventilation* Assessment & Plan ASSESSMENT: 05/05/16 * Consult received postoperatively today - after review of the patient's BSG trends, it appears that Mr Morrow has been having BSGs below goal range. * Hold basal insulin at this time (last dose administered on 05/03/16) * "Loosen" NovoLog goal range to be in accordance with ADA recommendations and continue to forgo carbohydrate coverage. * The patient has PMHx significant for ESRD with HD - this will likely make the A1c difficult to interpret * Insulin regimen based on POC BSG values instead of A1c * Around 1730 the patient was a code blue; fentanyl gtt and epi gtt ordered. * Increased physiological stress may cause BSGs to trend upwards - monitor with Accu-checks and re-assess in AM * If BSGs trend upwards, may consider insulin infusion as the standard of care in ICU 05/06/16 * Pt remains ventilated and blood sugars have risen to the 200's * Based on acute stressors and risk of hypoglycemia, begin insulin infusion per MD * Insulin infusion not started initially this AM because of limited line access * Central line has been place and POC BSG 211 mg/dL * Plan is for insulin infusion X 24 hours and reassess in the AM PLAN FOR INPATIENT GLYCEMIC CONTROL: * Starting IV insulin infusion per moderate stress protocol * Goal Range 140 - 180 mg/dl * In the critical care setting, continuous IV insulin infusion has been shown to be the best method for achieving glycemic targets. * Please note that the plan above was derived based on current level of insulin resistance and hospital stress. These recommendations are appropriate for inpatient admission only. Plan of care upon discharge will need to be reassessed to avoid potential outpatient hypo/hyperglycemia. Thank you.
--- NOTE | 2016-05-06 13:50 | DIAGNOSTIC IMAGING REPORT ---
SINGLE VIEW CHEST CLINICAL HISTORY: Endotracheal tube repositioning. FINDINGS: An AP, portable, upright chest radiograph is compared to performed earlier the same day 05/06/2016 and correlated with chest CT dated 05/05/2016. The examination is degraded by portable technique and patient rotation. A right internal jugular central venous catheter, a left internal jugular central venous catheter, a cardiac AICD, and an enteric tube are unchanged in position. The endotracheal tube has been advanced. The tip now projects 4.5 cm above the dorothy. The heart is enlarged and there is atherosclerotic calcification of the thoracic aorta. The pulmonary vasculature is noncongested. Emphysema and chronic interstitial thickening is similar to previous. Small pleural effusions and bibasilar airspace opacities are unchanged. Diffuse subpleural reticulation is again noted. No pneumothorax is seen. The skeletal structures are osteopenic. The bony thorax is grossly intact. IMPRESSION: 1. The endotracheal tube has been advanced. The tip now projects 4.5 cm above the dorothy. 2. Additional lines and tubes are unchanged. 3. Cardiomegaly and emphysema. 4. Small pleural effusions and bibasilar airspace opacities, unchanged from previous. Electronically signed by: Sree Zaragoza M.D. 05/06/2016 1:49 PM Dictated Date/Time: 05/06/2016 1:46 PM
[2016-05-06] MEDS ORDERED: LEVETIRACTAM 500 MG in DEXTROSE 5% 100ML IV PRN (14:00)
--- NOTE | 2016-05-06 14:00 | Pharmacy Progress Note ---
Pharmacy Antibiotic Consult Date of Service: May 06, 2016. Pharmacy Dosing Scope Pharmacy is consulted to initiate Vancomycin IV dosing therapy, order appropriate labs and adjust drug dose/frequency. Subjective The patient is a 81 year old male admitted on May 03, 2016 at 03:34. Objective Height (Feet): 5 Height (Inches): 11.50 Weight (Kilograms): 85.300 Lab Results (24hrs): Laboratory Tests Test 05/05/16 17:20 05/05/16 23:25 05/06/16 04:25 BUN/Creatinine Ratio 8.2 8.9 8.9 Blood Urea Nitrogen 27 mg/dl 34 mg/dl 36 mg/dl Creatinine 3.30 mg/dl 3.80 mg/dl 4.10 mg/dl White Blood Count 10.74 K/uL 13.90 K/uL Red Blood Count 2.95 M/uL 2.78 M/uL Hemoglobin 10.4 g/dL 9.8 g/dL Hematocrit 31.5 % 29.5 % Mean Corpuscular Volume 106.8 fL 106.1 fL Mean Corpuscular Hemoglobin 35.3 pg 35.3 pg Mean Corpuscular Hemoglobin Concent 33.0 g/dl 33.2 g/dl Platelet Count 121 K/uL 155 K/uL Mean Platelet Volume 10.8 fL 11.0 fL Neutrophils (%) (Auto) 58.4 % 84.2 % Lymphocytes (%) (Auto) 31.1 % 6.9 % Monocytes (%) (Auto) 6.8 % 7.8 % Eosinophils (%) (Auto) 3.1 % 0.4 % Basophils (%) (Auto) 0.3 % 0.1 % Neutrophils # (Auto) 6.28 K/uL 11.69 K/uL Lymphocytes # (Auto) 3.34 K/uL 0.96 K/uL Monocytes # (Auto) 0.73 K/uL 1.08 K/uL Eosinophils # (Auto) 0.33 K/uL 0.06 K/uL Basophils # (Auto) 0.03 K/uL 0.02 K/uL Micro Results: Item Value Date Time MRSA DNA Surveillance Screen - Final Complete 05/06/16 0000 Nasal Specimen Negative for MRSA by DNA Probe Blood Culture Received 05/05/162027 Blood Pending Blood Culture Received 05/05/162024 Blood Pending Recent Pertinent Medications Item Value Date Time Piperacillin Sod/ 115 ml @ 28.75 mls/hr 05/06/16 0200 Tazobactam Sod Q12H/IV 05/06/16 0210 3.375 gm/Dextrose Assessment & Plan 81 yo M admitted to ICU s/p code blue, initiated on Vancomycin and Zosyn IV for pulmonary source control. Patient is a HD patient so dosing will be determined by PRE-HD levels and HD schedule. Vancomycin * Loading dose: 1700 mg IV X 1 dose (reduced loading dose for HD patient (~20 mg/kg)) * Further dosing to be determined tomorrow * A random level has been ordered for: 05/07/16 with AM labs Zosyn * Continue 3.375 g IV every 12 hours (reduced for HD) * Could potentially increase Zosyn IV to 4.5 g per dose. Will reassess in the AM based on clinical picture. Pharmacy will continue to follow and will adjust dose/frequency as necessary. Thank you
[2016-05-06] MEDS ORDERED: SODIUM CHLORIDE 0.9% IV SCH (14:30)
[2016-05-06] MEDS ORDERED: CALCIUM CHLORIDE IV SCH (14:30)
--- NOTE | 2016-05-06 14:32 | DIAGNOSTIC IMAGING REPORT ---
CT SCAN OF THE BRAIN WITHOUT IV CONTRAST CLINICAL HISTORY: Status post cardiac arrest. Seizure. COMPARISON STUDY: CT of the brain dated 05/03/2016. TECHNIQUE: Unenhanced axial CT scan of the brain is performed from the vertex to the skull base. The examination is modestly degraded by motion artifact. CT DOSE: 614.27 mGy.cm FINDINGS: Endotracheal and enteric tubes are noted on the environmental remediation consultant tomogram. Brain parenchyma: There are age-related involutional changes noting moderate confluent subcortical and periventricular microangiopathic change. 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 There is no hemorrhage, mass effect, or evidence of acute territorial ischemia by CT criteria. Wallis-white matter is preserved. No extra-axial fluid collection is seen. Ventricles, sulci, cisterns: Prominent secondary to involutional change. Intracranial vasculature: There is advanced atherosclerotic calcification of the cavernous carotid and vertebral. Calvarium: Unremarkable. Sinuses and mastoids: A retention cyst pancreas mucosal thickening is identified in the right maxillary antrum. Trace mucosal thickening is also seen in the right frontal sinus. The remaining visualized paranasal sinuses are clear. The mastoid air cells are well pneumatized. Orbits: The bony orbits are grossly intact. IMPRESSION: Senescent changes as above with no hemorrhage, mass effect, or evidence of acute territorial ischemia by CT criteria. Electronically signed by: Sree Zaragoza M.D. 05/06/2016 2:30 PM Dictated Date/Time: 05/06/2016 2:26 PM
--- NOTE | 2016-05-06 14:37 | CRITICAL CARE PROGRESS NOTE ---
DATE: 05/06/2016 DATE: 05/06/2016. SUBJECTIVE: The patient's care was discussed in detail on multidisciplinary rounds today. There were no acute events overnight; however, when I went to examine him this morning after rounds he was very stiff throughout. There is no overt seizure activity, but even on propofol and fentanyl infusions I became concerned about seizure. This was right before attempts were made at triple lumen catheter placement with Day Warren PA-C. He is not having much in the way of ET tube secretions. He has not had a bowel movement. He remains on heparin, dobutamine and Levophed infusions. He was also started on a fentanyl infusion today. OBJECTIVE: VITAL SIGNS: Maximum temperature 36.8, heart rate 60s-70s, respiratory rate 18, blood pressure 90-130/30s-40s, oxygen saturation 100%. VENTILATOR SETTINGS: Assist control rate 18, tidal volume 500, FIO2 60%, PEEP 14, 24-hour fluid balance positive 564 mL. GENERAL: He will open his eyes and bite on the tube but is not following commands. He moves all 4 extremities, but not to command and without purpose. LUNGS: Have decreased breath sounds bilaterally. No rales, rhonchi or wheezes. HEART: Irregular. No murmurs noted. ABDOMEN: Obese, nondistended. Active bowel sounds. EXTREMITIES: Show the right hip dressing to be clean, dry and intact. The left upper extremity has 2+ edema compared to the right which has trace to 1+. Skin is dry and flaking over the stridor. The left upper extremity is bigger than the right. Skin is dry and flaking on the left upper extremity. LABORATORY DATA: White blood cell count 13.9, hemoglobin 9.8, hematocrit 29.5, platelets 155, pH 7.30, pCO2 of 48, pO2 284, HCO3 24. PTT 59.7. Sodium 133, potassium 4.8, chloride 97, CO2 23, BUN 36, creatinine 4.1. Blood sugar 243. Lactic acid 2.5, calcium 6.6, phosphorus 6.3. Total bilirubin 0.8, direct bilirubin 0.4, AST 65, ALT 25, alkaline phosphatase 97. CPK 312. Troponin 0.204, albumin 2.5, blood sugar 211-244. Blood cultures are pending. Portable chest x-ray x2 were reviewed today. They show some mild pulmonary edema. No definite infiltrate. Cardiomegaly. Endotracheal tube was high at 6.4 cm above the dorothy. On the second chest x-ray it was 11 cm above the dorothy. It was advanced several times. MEDICATIONS AND INFUSIONS: Acetaminophen, Lipitor, timolol, chlorhexidine, dobutamine 5 mcg per kilogram per minute, fentanyl 25 mcg per hour, p.r.n. fentanyl, heparin infusion, insulin sliding scale, levothyroxine, norepinephrine 0.3 mcg per kilogram per minute, Zofran, Protonix, Zosyn day 2, vancomycin day 2. IMPRESSION: 1. Postop day 1 status post repair of right hip fracture by cementing. 2. Acute hypoxemic respiratory failure status post reintubation in the PACU and subsequent cardiac arrest after desaturation. He is status post bronchoscopy and follow-up echocardiogram which shows the ejection fraction to be 20-25% on the dobutamine. 3. Hypotension, ongoing. I do not see any signs of acute bleeding and he is being covered for sepsis. Cortisol is pending. I think he is euvolemic to hypervolemic. 4. Ischemic cardiomyopathy, ejection fraction 20-25% on follow-up echocardiogram. 5. End-stage renal disease status post new AV fistula creation on 04/30/2016. Last dialysis 05/05/2016 prior to his surgery. 6. History of atrial fibrillation as well as automatic implantable cardioverter-defibrillator and pacemaker placement. 7. Diabetes mellitus with hyperglycemia. 8. Hypothyroidism. 9. Possible seizures and anoxic injury. 10. Fat embolism is still on my differential for this patient, although it is difficult to prove. PLAN: NEUROLOGIC: Followup EEG and neurology consultation has been ordered. I have given Keppra load as well. Continue to follow his neuro exam and after his CT of his brain give him a sedation vacation. PULMONARY: The PEEP has already been decreased today. The endotracheal tube on the most recent x-ray appears in better position. Continue to treat for possible aspiration as well as pulmonary embolism. CARDIOVASCULAR: Wean the dobutamine to 3 mcg per kilogram per minute and attempt to wean the Levophed. Check a cortisol level and consider hydrocortisone. Many thanks to Dr. Vaughn and his assistance in this patient's care. Check lower extremity Dopplers. INFECTIOUS DISEASE: No definitive infection, but as ill as he is I would like to continue the Zosyn and vancomycin until a more clear picture occurs. RENAL: No dialysis today. His care was discussed with the renal service. Watch potassium and volume of intake. ENDOCRINE: Insulin infusion today. GASTROINTESTINAL: Begin tube feeds and continue GI prophylaxis with proton pump inhibitor. Trickle feeds only today. HEMATOLOGY: Continue heparin infusion and follow blood counts. ELECTROLYTES: Replete the calcium. I discussed the patient's care in detail with his son and . I am certainly concerned about an anoxic injury at this point. I have tried to impress upon them both how ill he is. It is still unclear to me why he was so hypoxemic. Thank you for asking me to see this patient. Critical care time excluding procedure is 1 hour.
[2016-05-06] MEDS: IMPACT LIQ 1000 ML BAG OG SCH ×2 (15:44→20:36)
--- NOTE | 2016-05-06 16:27 | DIAGNOSTIC IMAGING REPORT ---
BILATERAL LOWER EXTREMITY VENOUS DOPPLER CLINICAL HISTORY: Respiratory distress status post surgery. COMPARISON STUDY: No previous studies for comparison. TECHNIQUE: Sonography of the deep venous system of the bilateral lower extremities was performed. Compression and augmentation were evaluated. FINDINGS: This exam was compromised due to difficulty with positioning. The common femoral, superficial femoral and popliteal veins were compressible. Augmentation was normal. Flow was shown within the deep calf vessels. IMPRESSION: No evidence of deep venous thrombus within the bilateral lower extremities. Electronically signed by: Jorge Pardo M.D. 05/06/2016 4:25 PM Dictated Date/Time: 05/06/2016 4:24 PM
[2016-05-06 17:04] LABS: HEMATOCRIT 25.1 % (42-52)
--- NOTE | 2016-05-06 17:23 | EEG Procedure Note ---
EEG Procedure Note Date of Service May 06, 2016. Start / End Times Start Time: 12:01 PM End Time: 12:21 PM Referring Physician Hien Romeo History This is a 81-year-old male who was undergoing hip fracture repair with cardiopulmonary arrest in concern for anoxic brain injury. Episode of generalized stiffness concerning for possible seizure. EEG for further evaluation of seizure and neurological prognosis. Home Medication List Scheduled Allopurinol (Zyloprim), 150 MG PO QAM Amlodipine (Norvasc), 10 MG PO QAM Aspirin (Aspirin Ec), 81 MG PO QAM Atorvastatin (Lipitor), 80 MG PO QAM Brimonidine Tartrate-Timolol M (Combigan), 1 DROP OPB BID Carvedilol (Coreg), 1 TAB PO BID Glipizide (Glipizide Er), 5 MG PO QAM Hydralazine HCl (Hydralazine HCl), 50 MG PO TID Insulin Aspart (Novolog Flexpen), SLIDING SCALE Insulin Glargine (Lantus Solostar), 12 UNITS SQ QAM Isosorbide Mononitrate Ext Rel (Imdur Ext Rel), 1 TAB PO QAM Levothyroxine Sodium (Levothyroxine Sodium), 1 TAB PO QAM Metolazone (Metolazone), 5 MG PO QAM Ocuvite Preservision (Ocuvite Preservision), 1 TAB PO DAILY Pantoprazole (Protonix), 40 MG PO DAILY Travoprost (Travatan Z), 1 DROPS OP HS Warfarin Sod (Jantoven), 2.5 MG PO 3XWEEK Warfarin Sod (Jantoven), 1.25 MG PO 4XWEEK Scheduled PRN Oxycodone/Acetaminophen 5MG/325MG (Percocet 5MG/325MG), 1 TABLET PO Q4H PRN for Pain Polyethylene Glycol 3350 (Miralax), 17 GM PO DAILY PRN for prn Inpatient Medication List Current Inpatient Medications Medications (Trade) Dose Ordered Sig/Summer Route Start Time Stop Time Status Last Admin Dose Admin Acetaminophen (Tylenol Tab) 650 mg Q4H PRN PO 05/03/16 03:30 06/02/16 03:29 Polyethylene (Miralax Powder Packet) 17 gm DAILY PRN PO 05/03/16 03:30 06/02/16 03:29 Ondansetron HCl (Zofran Inj) 4 mg Q6H PRN IV 05/03/16 03:30 06/02/16 03:29 Atorvastatin Calcium (Lipitor Tab) 80 mg QAM PO 05/03/16 09:00 06/02/16 08:59 05/06/16 12:14 80 MG Levothyroxine Sodium (Synthroid Tab) 150 mcg DAILYBB PO 05/03/16 06:00 06/02/16 05:59 05/06/16 06:00 150 MCG Travoprost (Travatan Z) 1 drops HS OP 05/03/16 21:00 06/02/16 20:59 05/04/16 21:09 1 DROPS Glucose (Glucose 40% Gel) 15-30 GRAMS 15 GRAMS... UD PRN PO 05/03/16 06:00 06/02/16 05:59 Glucose (Glucose Chew Tab) 4-8 Tablets 4 Tabl... UD PRN PO 05/03/16 06:00 06/02/16 05:59 Dextrose (Dextrose 50% 50ML Syringe) 25-50ML OF 50% DW IV FOR... UD PRN IV 05/03/16 06:00 06/02/16 05:59 Glucagon (Glucagon Inj) 1 mg UD PRN SQ 05/03/16 06:00 06/02/16 05:59 Brimonidine/ Timolol (Combigan 0.2%/ 0.5% Oph Solution) 1 drop BID OP 05/04/16 21:00 06/03/16 20:59 05/06/16 12:13 1 DROP Miscellaneous Information 1 ea 1 ea UD PRN N/A 05/05/16 16:15 06/04/16 16:14 Heparin Sodium/ Dextrose (Heparin 25,000 Unit/500ml D5W) 500 ml @ 29 mls/hr [id number] PRN IV 05/05/16 19:00 06/04/16 18:59 05/05/16 23:04 29 MLS/HR Chlorhexidine Gluconate 15 ml 15 ml BID MT 05/05/16 21:00 06/04/16 20:59 05/06/16 12:15 15 ML Norepinephrine Bitartrate/ Dextrose (Levophed Inj/ D5W 500ml) 508 ml @ 0 mls/hr Q0M PRN IV 05/05/16 19:12 06/04/16 19:11 05/06/16 04:35 129 MLS/HR Ioversol 111 ml 111 ml UD PRN IV 05/05/16 19:15 05/09/16 19:14 Pantoprazole Sodium/Syringe (Protonix Inj/ Syringe) 10 ml @ 5 mls/min DAILY@11 IV 05/06/16 11:00 06/05/16 10:59 05/06/16 12:15 5 MLS/MIN Piperacillin Sod/ Tazobactam Sod 1 ea 1 ea UD PRN N/A 05/05/16 20:15 06/04/16 20:14 Piperacillin Sod/ Tazobactam Sod/ Dextrose (Zosyn Iv/D5 100ml) 115 ml @ 28.75 mls/ hr Q12H IV 05/06/16 02:00 05/13/16 01:59 05/06/16 15:44 28.75 MLS/HR Fentanyl Citrate 50 mcg 50 mcg Q2H PRN IV 05/06/16 07:45 05/20/16 07:44 Fentanyl Citrate 250 ml @ 0 mls/hr Q0M PRN IV 05/06/16 07:45 05/20/16 07:44 Dobutamine HCl (DOBUTamine / D5W) 250 ml @ 0 mls/hr Q0M PRN IV 05/06/16 09:00 06/05/16 08:59 Vancomycin HCl 1 ea 1 ea UD PRN N/A 05/06/16 10:15 06/05/16 10:14 Insulin Human Regular/Sodium Chloride (novoLIN-R/Nss 250ml) 252.5 ml @ 0 mls/hr DAILY@1130 IV 05/06/16 13:30 06/05/16 13:29 05/06/16 13:43 1.2 MLS/HR Insulin Aspart SLIDING SCALE PCHS SC 05/06/16 17:15 06/05/16 17:14 Levetiracetam 1000 mg/Dextrose 110 ml @ 440 mls/hr Q24H IV 05/07/16 10:00 06/06/16 09:59 Levetiracetam/ Dextrose (Keppra Iv/D5 100ml) 105 ml @ 420 mls/hr DAILY PRN IV 05/06/16 14:00 06/05/16 13:59 Enteral Nutritional Formula (Impact 1.0 Jovan) 1,000 ml UD OG 05/06/16 14:15 06/05/16 14:14 05/06/16 15:44 1,000 ML Description This is a 21 electrode EEG with a single channel dedicated to limited EKG. The electrodes were placed in accordance with the International 10-20 system. At the start of this recording the patient was unresponsive. The background was poorly organized with no anterior to posterior gradient. Background was composed of asymmetric slowing right greater than left. The right hemisphere was comprised of moderate amplitude 3-4 Hz delta slowing with intermixed theta/ alpha frequencies. The left hemisphere was comprised of lower amplitude 5-7 Hz theta frequencies with intermixed delta and alpha frequencies. There did appear to be some variability in the background. Hyperventilation and photic stimulation were not done. There was no state changes or sleep transients. Interpretation This is an abnormal routine EEG secondary to asymmetric moderate background disorganization and slowing right hemisphere greater than left. There was no electrographic seizures or epileptiform discharges. Clinical Correlation This EEG indicates structural or functional cerebral dysfunction in the right greater than left hemisphere.
[2016-05-06] MEDS: FENTANYL 1250MCG/250ML NSS 250 ML IV PRN (18:31)
[2016-05-06] MEDS: TRAVOPROST Z 0.004% OPH SOLN 2.5 ML BTL OP SCH (20:37)
[2016-05-06] MEDS: HEPARIN 25,000 UNIT/500ML D5W 500 ML IV PRN (21:18)
[2016-05-06 22:41] LABS: HEMATOCRIT 24.8 % (42-52)
--- NOTE | 2016-05-06 22:59 | Family Medicine Progress Note ---
Progress Note Date of Service May 06, 2016. Subjective Pt evaluation today including: physical exam, chart review, lab review, review of studies, conversation w/ valuation consultant, review of inpatient medication list Voiding: peraza catheter in place Pt sedated and intubated, could not assess review of systems Medications Current Inpatient Medications Medications (Trade) Dose Ordered Sig/Summer Route Start Time Stop Time Status Last Admin Dose Admin Acetaminophen (Tylenol Tab) 650 mg Q4H PRN PO 05/03/16 03:30 06/02/16 03:29 Polyethylene (Miralax Powder Packet) 17 gm DAILY PRN PO 05/03/16 03:30 06/02/16 03:29 Ondansetron HCl (Zofran Inj) 4 mg Q6H PRN IV 05/03/16 03:30 06/02/16 03:29 Atorvastatin Calcium (Lipitor Tab) 80 mg QAM PO 05/03/16 09:00 06/02/16 08:59 05/06/16 12:14 80 MG Levothyroxine Sodium (Synthroid Tab) 150 mcg DAILYBB PO 05/03/16 06:00 06/02/16 05:59 05/06/16 06:00 150 MCG Travoprost (Travatan Z) 1 drops HS OP 05/03/16 21:00 06/02/16 20:59 05/06/16 20:37 1 DROPS Glucose (Glucose 40% Gel) 15-30 GRAMS 15 GRAMS... UD PRN PO 05/03/16 06:00 06/02/16 05:59 Glucose (Glucose Chew Tab) 4-8 Tablets 4 Tabl... UD PRN PO 05/03/16 06:00 06/02/16 05:59 Dextrose (Dextrose 50% 50ML Syringe) 25-50ML OF 50% DW IV FOR... UD PRN IV 05/03/16 06:00 06/02/16 05:59 Glucagon (Glucagon Inj) 1 mg UD PRN SQ 05/03/16 06:00 06/02/16 05:59 Brimonidine/ Timolol (Combigan 0.2%/ 0.5% Oph Solution) 1 drop BID OP 05/04/16 21:00 06/03/16 20:59 05/06/16 20:37 1 DROP Miscellaneous Information 1 ea 1 ea UD PRN N/A 05/05/16 16:15 06/04/16 16:14 Heparin Sodium/ Dextrose (Heparin 25,000 Unit/500ml D5W) 500 ml @ 29 mls/hr [id number] PRN IV 05/05/16 19:00 06/04/16 18:59 05/06/16 21:18 29 MLS/HR Chlorhexidine Gluconate 15 ml 15 ml BID MT 05/05/16 21:00 06/04/16 20:59 05/06/16 20:36 15 ML Norepinephrine Bitartrate/ Dextrose (Levophed Inj/ D5W 500ml) 508 ml @ 0 mls/hr Q0M PRN IV 05/05/16 19:12 06/04/16 19:11 05/06/16 18:32 113 MLS/HR Ioversol 111 ml 111 ml UD PRN IV 05/05/16 19:15 05/09/16 19:14 Pantoprazole Sodium/Syringe (Protonix Inj/ Syringe) 10 ml @ 5 mls/min DAILY@11 IV 05/06/16 11:00 06/05/16 10:59 05/06/16 12:15 5 MLS/MIN Piperacillin Sod/ Tazobactam Sod 1 ea 1 ea UD PRN N/A 05/05/16 20:15 06/04/16 20:14 Piperacillin Sod/ Tazobactam Sod/ Dextrose (Zosyn Iv/D5 100ml) 115 ml @ 28.75 mls/ hr Q12H IV 05/06/16 02:00 05/13/16 01:59 05/06/16 15:44 28.75 MLS/HR Fentanyl Citrate 50 mcg 50 mcg Q2H PRN IV 05/06/16 07:45 05/20/16 07:44 Fentanyl Citrate 250 ml @ 0 mls/hr Q0M PRN IV 05/06/16 07:45 05/20/16 07:44 05/06/16 18:31 10 MLS/HR Dobutamine HCl (DOBUTamine / D5W) 250 ml @ 0 mls/hr Q0M PRN IV 05/06/16 09:00 06/05/16 08:59 05/06/16 18:31 7.7 MLS/HR Vancomycin HCl 1 ea 1 ea UD PRN N/A 05/06/16 10:15 2/10/17 10:14 Insulin Human Regular/Sodium Chloride (novoLIN-R/Nss 250ml) 252.5 ml @ 0 mls/hr DAILY@1130 IV 05/06/16 13:30 06/05/16 13:29 05/06/16 13:43 1.2 MLS/HR Insulin Aspart SLIDING SCALE PCHS SC 05/06/16 17:15 06/05/16 17:14 Levetiracetam 1000 mg/Dextrose 110 ml @ 440 mls/hr Q24H IV 05/07/16 10:00 06/06/16 09:59 Levetiracetam/ Dextrose (Keppra Iv/D5 100ml) 105 ml @ 420 mls/hr DAILY PRN IV 05/06/16 14:00 06/05/16 13:59 Enteral Nutritional Formula (Impact 1.0 Jovan) 1,000 ml UD OG 05/06/16 14:15 06/05/16 14:14 05/06/16 20:36 1,000 ML Objective Vital Signs Date Time Temp Pulse Resp B/P Pulse Ox O2 Delivery O2 Flow Rate FiO2 05/06/16 22:00 67 22 137/26 100 Mechanical Ventilator 40 05/06/16 20:00 40 05/06/16 20:00 100 Mechanical Ventilator 40 05/06/16 20:00 36.8 60 22 127/25 100 Mechanical Ventilator 40 05/06/16 19:28 40 05/06/16 18:28 40 05/06/16 18:02 36.7 60 22 116/25 100 Mechanical Ventilator 50 05/06/16 16:00 60 22 116/25 100 Mechanical Ventilator 50 05/06/16 16:00 Mechanical Ventilator 50 05/06/16 16:00 50 05/06/16 14:30 50 05/06/16 14:00 60 18 116/29 100 Mechanical Ventilator 60 05/06/16 12:15 60 05/06/16 12:00 60 05/06/16 12:00 60 18 112/35 100 Mechanical Ventilator 60 05/06/16 12:00 Mechanical Ventilator 60 05/06/16 10:00 60 18 125/43 100 Mechanical Ventilator 60 05/06/16 09:10 60 05/06/16 09:00 60 05/06/16 08:00 Mechanical Ventilator 60 05/06/16 08:00 60 05/06/16 08:00 100 Mechanical Ventilator 70 05/06/16 08:00 64 18 138/45 100 Mechanical Ventilator 60 05/06/16 05:34 70 05/06/16 05:00 61 16 105/35 100 05/06/16 04:45 67 19 105/36 100 05/06/16 04:30 65 17 91/32 100 05/06/16 04:15 64 16 105/35 100 05/06/16 04:00 100 Mechanical Ventilator 70 05/06/16 04:00 36.5 64 17 108/36 100 Mechanical Ventilator 70 05/06/16 04:00 100 05/06/16 03:45 61 15 108/36 100 05/06/16 03:30 67 15 116/38 100 05/06/16 03:15 69 12 133/41 100 05/06/16 03:00 70 16 115/36 100 05/06/16 02:45 81 16 99/35 100 05/06/16 02:35 80 05/06/16 02:30 64 13 102/35 100 05/06/16 02:15 67 12 110/36 100 05/06/16 02:00 60 12 99/33 100 05/06/16 01:45 73 14 112/36 100 05/06/16 01:30 64 13 114/34 100 Mechanical Ventilator 05/06/16 01:15 66 13 134/38 100 05/06/16 01:00 69 17 149/40 100 Mechanical Ventilator 05/06/16 00:45 61 17 155/42 100 05/06/16 00:30 69 18 132/38 100 Mechanical Ventilator 80 05/06/16 00:15 66 15 106/34 100 05/06/16 00:00 100 Mechanical Ventilator 80 05/06/16 00:00 36.5 68 17 115/36 100 Mechanical Ventilator 80 05/06/16 00:00 100 05/05/16 23:45 62 16 103/33 100 05/05/16 23:27 90 05/05/16 23:00 64 18 109/34 100 05/05/16 22:30 67 12 98 Mechanical Ventilator Physical Exam General Appearance: + pertinent finding (sedated, intubated) Neck: supple, no carotid bruits, trachea midline Respiratory/Chest: lungs clear, + pertinent finding (no crackles, no rhomchi) Cardiovascular: regular rate, rhythm, no murmur Abdomen: normal bowel sounds, soft Extremities: no pedal edema, + pertinent finding (ecchymoses antecubital fossa Left, swelling) Skin: + pertinent finding (skin Lower extremities, dry, pealing) Laboratory Results Results Past 24 Hours Test 05/05/16 23:23 05/05/16 23:25 05/06/16 02:28 05/06/16 04:25 Range/Units Bedside Glucose 179 70-99 mg/dl Sodium Level 135 133 136-145 mmol/L Potassium Level 4.4 4.8 3.5-5.1 mmol/L Chloride Level 99 97 98-107 mmol/L Carbon Dioxide Level 23 23 21-32 mmol/L Anion Gap 13.0 13.0 3-11 mmol/L Blood Urea Nitrogen 34 36 7-18 mg/dl Creatinine 3.80 4.10 0.60-1.40 mg/dl Est Creatinine Clear Calc Drug Dose 15.9 14.8 ml/min Estimated GFR () 16.0 14.6 Estimated GFR (Non- 13.8 12.6 BUN/Creatinine Ratio 8.9 8.9 10-20 Random Glucose 262 243 70-99 mg/dl Lactic Acid Level 3.6 2.5 0.4-2.0 mmol/L Calcium Level 6.8 6.6 8.5-10.1 mg/dl Total Creatine Kinase 271 312 39-308 U/L Creatine Kinase MB 5.1 5.9 0.5-3.6 ng/ml Creatine Kinase MB Ratio 1.9 1.9 0-3.0 Troponin I 0.166 0.204 0-0.045 ng/ml Activated Partial Thromboplast Time > 300.0 117.5 21.0-31.0 SECONDS Partial Thromboplastin Ratio > 11.0 4.5 White Blood Count 13.90 4.8-10.8 K/uL Red Blood Count 2.78 4.7-6.1 M/uL Hemoglobin 9.8 14.0-18.0 g/dL Hematocrit 29.5 42-52 % Mean Corpuscular Volume 106.1 80-100 fL Mean Corpuscular Hemoglobin 35.3 25-34 pg Mean Corpuscular Hemoglobin Concent 33.2 32-36 g/dl Platelet Count 155 130-400 K/uL Mean Platelet Volume 11.0 7.4-10.4 fL Neutrophils (%) (Auto) 84.2 % Lymphocytes (%) (Auto) 6.9 % Monocytes (%) (Auto) 7.8 % Eosinophils (%) (Auto) 0.4 % Basophils (%) (Auto) 0.1 % Neutrophils # (Auto) 11.69 1.4-6.5 K/uL Lymphocytes # (Auto) 0.96 1.2-3.4 K/uL Monocytes # (Auto) 1.08 0.11-0.59 K/uL Eosinophils # (Auto) 0.06 0-0.5 K/uL Basophils # (Auto) 0.02 0-0.2 K/uL RDW Standard Deviation 59.9 36.4-46.3 fL RDW Coefficient of Variation 15.3 11.5-14.5 % Immature Granulocyte % (Auto) 0.6 % Immature Granulocyte # (Auto) 0.09 0.00-0.02 K/uL Nucleated RBC Absolute Count (auto) 0.12 0-0 K/uL Nucleated Red Blood Cells % 0.9 % Prothrombin Time 15.4 9.0-12.0 SECONDS Prothromb Time International Ratio 1.4 0.9-1.1 Phosphorus Level 6.3 2.5-4.9 mg/dl Magnesium Level 2.3 1.8-2.4 mg/dl Total Bilirubin 0.8 0.2-1 mg/dl Direct Bilirubin 0.4 0-0.2 mg/dl Aspartate Amino Transf (AST/SGOT) 65 15-37 U/L Alanine Aminotransferase (ALT/SGPT) 25 12-78 U/L Alkaline Phosphatase 97 45-117 U/L Total Protein 6.1 6.4-8.2 gm/dl Albumin 2.5 3.4-5.0 gm/dl Test 05/06/16 05:10 05/06/16 05:46 05/06/16 09:01 05/06/16 12:02 Range/Units Activated Partial Thromboplast Time 59.7 21.0-31.0 SECONDS Partial Thromboplastin Ratio 2.3 Bedside Glucose 244 70-99 mg/dl Blood Gas Sample Site Art Line Bedside Blood Gas pH (LAB) 7.30 7.35-7.45 Bedside Blood Gas pCO2 (LAB) 48 35-46 mmHg Bedside Blood Gas pO2 (LAB) 284 80-95 mmHg Bedside Blood Gas HCO3 (LAB) 24 19-24 meq/L Bedside Blood Gas Total CO2 25 24-31 mEq/l Bedside Blood Gas Base Excess (LAB) -3.0 -9-1.8 meq/L Bedside Blood Gas O2 Saturation 100.0 90-95 % Jr Test NA Oxygen Delivery Device Ventilator Bedside Oxygen Rate (breaths/min) 18 Blood Gas Minute Ventilation 9.7 Bedside FiO2 60 % Blood Gas Tidal Volume 500 Blood Gas PEEP 14 Hemoglobin 9.1 14.0-18.0 g/dL Hematocrit 26.9 42-52 % Test 05/06/16 12:25 05/06/16 15:08 05/06/16 16:48 05/06/16 22:24 Range/Units Bedside Glucose 211 153 70-99 mg/dl Hemoglobin 8.8 14.0-18.0 g/dL Hematocrit 25.1 42-52 % Random Cortisol 26.92 mcg/dl Microbiology Results 05/06/16 MRSA DNA Surveillance Screen - Final, Complete Specimen Negative for MRSA by DNA Probe Assessment and Plan 81 yo M with hx of CHF, CAD, AFib, ESRD p/w with hx of fall at home w/ resultant Rt displaced humeral fracture, partially displaced R femoral neck fracture s/p hemiarthroplasty of the Rt Hip on 05/05/16 now s/p Post-op cardiac arrest S/p Post-operative Cardiac arrest resuscitated x 2 -unknown etiology, -likely resulted in Anoxic brain injury -currently sedated, intubated in ICU Hypotensive shock -currently on Levophed. dobutamine to maintain pressures -Management per material control supervisor Seizures -Overnight patient has notable seizures -placed on Keppra -EEG, CT head completed CT head :Senescent changes with no hemorrhage, mass effect, or evidence of acute territorial ischemia EEG: indicates structural or functional cerebral dysfunction in the right greater than left hemisphere, no electrographic seizures or epileptiform discharges Rt humeral fracture and R femoral fracture - s/p Right Hip hemiarthroplasty (POD 1) ESRD -Cr 4.1 - Dialysis management per Dr. Ramirez Hx of Afib -management per material control supervisor Ischemic Cardiomyopathy - Hx of Systolic Heart Failure with EF of 20-25 - repeat echo showing EF 20-25%, CAD - Continue Statin, - Imdur, b-harry ,ASA held DM - insulin infusion Hx of HTN -patient acutely hypotensive on pressors - Norvasc, Imdur, hydralazine and carvedilol discontinued Hypothyroid - Continue Synthroid Gout - allopurinol held Continued [facility] stay due to: abnormal vital signs, multiple IV medications needed Discharge planning: uncertain Resident Tracking Resident Involvement: Resident Care Provided Care Provided: Adult [facility] Medicine Reviewed: Pt Seen/Exam by Me History remains intubated. concern of seizure opens eyes to his name. General Appearance: other (intubated. on fentanyl drip. opens eyes to verbal command) Respiratory: lungs clear, other (on vent) Cardiovascular: regular rate, rhythm Extremities: other (both extremity edema. ) Skin Characteristics: warm/dry Assessment/Plan I have reviewed the medical record and performed a history and physical examination of this patient today. I have discussed the case with Dr. Sandy. The above note reflects my findings, conclusions, and recommendations.
[2016-05-06 23:06] LABS: PARTIAL THROMBOPLASTIN RATIO 5.3
[2016-05-07] VITALS (32 sets, daily range): BP systolic 107–154; BP diastolic 23–72; PULSE 61–81; TEMP 36.7–37.7; O2SAT 98–100
[2016-05-07 00:56] LABS: PARTIAL THROMBOPLASTIN RATIO 2.9
[2016-05-07] MEDS: PIPERACILL/TAZOBAC IV 3.375 GM in DEXTROSE 5% 100ML IV SCH (01:35)
[2016-05-07] MEDS ORDERED: INSULIN GLARGINE SOLOSTAR 100 UNITS/ML 3 ML PEN SC STA (03:52)
[2016-05-07] MEDS: FENTANYL 1250MCG/250ML NSS 250 ML IV PRN (04:38)
[2016-05-07] MEDS: NOREPINEPHRINE BIT INJ 8 MG in DEXTROSE 5% 500ML 500 ML IV PRN (04:40)
[2016-05-07 05:13] LABS: BASO % 0.3 %; BASO ABS # 0.03 K/uL (0-0.2); EOS % 5.4 %; HEMATOCRIT 22.5 % (42-52); IG% 0.5 %; LYMPH % 16.2 %; LYMPH ABS # 1.78 K/uL (1.2-3.4); MEAN CORPUSCULAR HEMOGLOBIN 35.1 pg (25-34); MEAN CORPUSCULAR HGB CONC 35.1 g/dl (32-36); MEAN PLATELET VOLUME 10.6 fL (7.4-10.4); NEUT % 69.6 %; PLATELET COUNT 132 K/uL (130-400); RED BLOOD COUNT 2.25 M/uL (4.7-6.1); WHITE BLOOD COUNT 10.98 K/uL (4.8-10.8)
[2016-05-07 05:30] LABS: INR 1.4 (0.9-1.1); PROTHROMBIN TIME (PATIENT) 15.4 SECONDS (9.0-12.0)
[2016-05-07] MEDS: LEVOTHYROXINE 150 MCG TAB PO SCH (05:41)
[2016-05-07 05:43] LABS: COMPLETE YES
[2016-05-07 05:54] LABS: BUN/CREATININE RATIO 9.5 (10-20); CALCIUM 7.1 mg/dl (8.5-10.1); CREATININE 4.9 mg/dl (0.60-1.40); POTASSIUM 4.3 mmol/L (3.5-5.1)
[2016-05-07 06:22] LABS: PHOSPHORUS 4.8 mg/dl (2.5-4.9)
[2016-05-07] MEDS ORDERED: INSULIN ASPART 100 UNITS/ML 3 ML PEN SC SCH (06:45)
[2016-05-07] MEDS: INSULIN ASPART 100 UNITS/ML 3 ML PEN SC SCH ×3 (07:00→17:27)
--- NOTE | 2016-05-07 07:54 | DIAGNOSTIC IMAGING REPORT ---
CHEST ONE VIEW PORTABLE CLINICAL HISTORY: Respiratory failure. COMPARISON STUDY: Chest CT May 05, 2016 and chest radiograph May 06, 2016. FINDINGS: The tip of the endotracheal tube is 4.1 cm above the dorothy. Tip of nasogastric tube is below the lower aspect of image. A right internal jugular dual lumen catheter and left subclavian pacer/AICD remain in place. Moderate cardiomegaly is noted. There are trace bilateral pleural effusions. Interstitial thickening persists. There is hazy left basilar opacity. There is no pneumothorax. A left internal jugular central line is in place. IMPRESSION: 1. Satisfactory positioning of lines and tubes. 2. No significant change in mild pulmonary edema, small bilateral pleural effusions and mild bibasilar opacities. Electronically signed by: Jorge Pardo M.D. 05/07/2016 7:52 AM Dictated Date/Time: 05/07/2016 7:50 AM
--- NOTE | 2016-05-07 08:00 | Critical Care Progress Note ---
Critical Care Progress Note Date of Service May 07, 2016. Attending Dr. Hien Smith Alphonse Morrow is an 81yo male who is in the ICU s/p Code Blue after extubation for internal cementing repair of a Right Femoral Head Fracture on 02/09 s/p fall and fracture of Right Proximal Humerus as well. He was extubated in the PACU following surgery and ultimately needed to be reintubated and was admitted to the ICU. Pt had no acute events overnight. His sedation was turned off this morning around 0815. Pt has aroused and will make momentary eye contact. He arouses to pain by movement of his fractured extremities. I have spoken with Dr. Doll about EEG from yesterday; while there was no evidence of seizure she is considering an ischemic event as the left side of the brain is responding slower than the right. As the sedation as worn off, this may be exhibited on physical exam. Pt is currently responding more appropriately on the left than the right; however, there is intentional movement of the right lower extremity. Dr. Vaughn was also at bedside today to examine pt and is agreeable to the plan to wean of Dobutamine. A peripheral cuff BP check today demonstrated a much higher diastolic pressure than the Arterial Line. While the arterial line has good wave form, there is doubt that it is reading the pressures accurately. Spoke with Dr. Ramirez today. He has requested that the Arterial line remain in place through dialysis today. At which time, he intends to administer blood products for H&H of 7.9/22.5. CXR today demonstrated no significant change in mild pulmonary edema, small bilateral pleural effusions and mild bibasilar opacities. ROS could not be obtained due to pt intubation and sedation. Objective Vital Signs - as noted Laboratory Data - as noted Physical Exam: General - NAD, intubated. resting comfortably, sedation off 0815, moves head, momentary eye connect and then limited response Eyes - equal with no response to light, no icterus ENT - Mucosa moist Neck - Supple, trachea midline, no masses or lymphadenopathy, no JVD or bruits Lungs - No paradoxical chest wall movement, clear to auscultation bilaterally, no wheezes, rales, or rhonchi Heart - Reg rate and rhythm, No murmur, rubs, clicks, or gallops appreciated Abdomen - BS present, no bruits noted, tympanic to percussion, soft, nondistended, no organomegaly Extremities - Upper extremity edema L>R, no pedal edema noted, pedal pulses intact Neuro - A&OX 0 Strength: Can not be assessed Reflexes: No reflexes noted aside from upgoing left toe to plantar stimulation CN:pupil equal, no facial asymmetry Assessment & Plan (1) Altered mental status Code Blue in PACU with desaturation Am Rate: Fentanyl 75mcg/hr Neuro Consult in place: Spoke with Dr. Doll today * EEG yesterday demonstrated no seizure activity but was abnormal secondary to asymmetric moderate background disorganization and slowing right hemisphere greater than left. * She is considering an ischemic event, likely secondary to Hypoxemia/ Hypotension * Recommends CT Head in 2-3 days; MRI unattainable due to pt cardiac implant * Recommends to continue Keppra; as pt is at increased risk for seizures. Physical exam limited due to reduce response from pt Sedation Vacation today; will resume at half the above rate if needed. (2) Acute respiratory failure Code Blue in PACU s/p extubation from internal fixation of recent fractures on Remained Hypoxic for extended time, required Bronchoscopy in ICU (No Mucus plugging noted, minimal secretions) Vent Settings: 8.0 ET Tube @ 29cm; 22/500/5/30% CXR: no significant change in mild pulmonary edema, small bilateral pleural effusions and mild bibasilar opacities. Physical Exam findings minimal, Saturations > 90 on current settings; HCO3 WNL on PRP Weaning trial planned for later today once sedative is worn off. GI Prophylaxis in place: Protonix 40mg Chlorhexidine Mouth Care in place: Continue (3) End stage renal disease Cr: rising from 4.1 yesterday to 4.9 today (Peak this admission 5.8) Recent placement of Left Upper Arm Fistula on 04/30/16: Do not use for BP check Dr. Ramirez following, familiar with pt * Dialysis today per Dr. Ramirez (plan to remove 3L) * Minimal UOP * + 5.8 L this admission (4) Anemia H&H: 7.9 & 22.5 Dilution likely plays a role (approx 6L positive); No overt bleeding noted Dr. Ramirez ordered Type & Cross; holding 3 units PRBCs Repeat H&H prior to transfusion Follow Serial Labs DVT Prophylaxis: * Currently Anticoagulated on Heparin * PTT Prolonged 79 : Reduce dose according to protocol and recheck * SCD's in place (5) Acute on chronic systolic (congestive) heart failure ECHO 05/06: EF 20-25%, Mild/Mod MR, Min AR, Left Vent Systolic Fxn severely reduced, Global Hypokinesis * Not significantly different from prior ECHO consulted, spoke with him this AM * OK to wean off Dobutamine as tolerated Will wean Levophed after HRT * Currently: 0.3mcg/kg/min Monitor Peripheral BP Arterial Line; Likely unreliable will discontinue s/p HRT Other Cardiology: * Atrial Fibrillation: * Rate Controlled * Coumadin at home: Held now * Heparin Infusion per protocol in place * Hypercholesterolemia * Continue Atorvastatin (6) Diabetes Non-Insulin Dependent DM pre-hospital BS Currently receiving trickle feeds Impact at 10ml/hr Pharmacy Glycemic Control in place: Overnight: BSGs decreasing; d/c'd Insulin Infusion SSI: Novolog q 6hrs BSG checks per protocol (7) Leukocytosis Afebrile, WBC 10.98; Improving Blood Cultures: No growth to date Limited findings on physical exam for infection D/C Vancomycin in the setting of rising Cr and limited signs of infxn Continue Zosyn (8) Constipation No BM since prior to admission on 05/02 Abd w/o acute findings Begin Bowel Regimen * Colace Syrup 100mg PO * Miralax powder 17g PO (9) Hypothyroid Continue home medication * Synthroid 150mcg (10) Fall Fall 05/02/[address] Head 05/02 Negative Right Proximal Humerus Fracture * Non-operative Management Right Femoral Neck Fracture * Operative Cement Repair 05/05/16 Orthopedics following PT/OT ordered () access Central Access obtained with L IJ Catheter (05/06) Right Dialysis Catheter in place Right Arterial Line 2 PIVs: Right Hand and AC D/C PIV's now D/C Arterial s/p HRT Docking Pilot Attending: I have personally examined the patient and his care was discussed on multidisciplinary rounds in detail. I have reviewed this documentation by Torie Warren PA-C, we have discussed this patient and I agree with her impression and plan as well as other details in her note. I have reviewed the vital signs, I/O, medications, labs, radiographs and imaging. Mr. Morrow is a bit more alert today off the fentanyl infusion and may be following some commands but not consistently. He may be moving his R arm less than the L. He is very stiff throughout. No seizures identified. Anoxic injury still a possibility. Thanks to the neurology service. He remains of keppra for now. Diastolic cuff pressures are higher than with the arterial line but they must be measured on the arm that is fractured. He has significant PVD which prohibits accurate BP measurement on the LE. Will keep arterial line throughout dialysis than reassess later today. The diastolic pressure is limiting the ability to wean norepi. Dobutamine is being weaned off which may also help. Add back cardiac meds as clinical condition and BP warrants. Thin pastrana secretions from the ETT are being cultured and overall he has improved on the ventilator with less oxygen requirements. Peep is now at 5. Ventilator weaning with SBT is in progress. He is getting HD today and hopefully that will improve his changes of successful liberation from the ventilator Discontinue Vanco. Increase novosource renal to goal as tolerated and provide bowel regimen. No signs of active bleeding but he is anemic. There may be a component of dilution. Continue heparin and consider transition to coumadin although now that he has had a fall, he may not be a great candidate to receive it as an outpatient. 2u PRBC's on dialysis today. He is off the insulin infusion. Many thanks to the pharmacy service for their assistance with blood sugar management. Continue GI prophylaxis and chlorhexidine as well as PT. Remove peripheral IV' s. He has made some short term gains in the past day or so but his overall retirement prognosis given his cardiomyopathy, ESKD, delirium vs. anoxic injury. possible pna, and now s/p fall with fractures of hip and humerus is not good. updated at the bedside. Consults & Procedures Consultants: OT Ortho: Dr. Alves Cardiology: Dr. Vaughn Nephrology: Dr. Ramirez Procedures: Central Line: 05/06/16 Arterial Line : 05/05/16 Data Medications: Current Inpatient Medications Medications (Trade) Dose Ordered Sig/Summer Route Start Time Stop Time Status Last Admin Dose Admin Acetaminophen (Tylenol Tab) 650 mg Q4H PRN PO 05/03/16 03:30 06/02/16 03:29 Polyethylene (Miralax Powder Packet) 17 gm DAILY PRN PO 05/03/16 03:30 27/17 03:29 Ondansetron HCl (Zofran Inj) 4 mg Q6H PRN IV 05/03/16 03:30 06/02/16 03:29 Atorvastatin Calcium (Lipitor Tab) 80 mg QAM PO 05/03/16 09:00 06/02/16 08:59 05/06/16 12:14 80 MG Levothyroxine Sodium (Synthroid Tab) 150 mcg DAILYBB PO 05/03/16 06:00 06/02/16 05:59 05/07/16 05:41 150 MCG Travoprost (Travatan Z) 1 drops HS OP 05/03/16 21:00 06/02/16 20:59 05/06/16 20:37 1 DROPS Glucose (Glucose 40% Gel) 15-30 GRAMS 15 GRAMS... UD PRN PO 05/03/16 06:00 06/02/16 05:59 Glucose (Glucose Chew Tab) 4-8 Tablets 4 Tabl... UD PRN PO 05/03/16 06:00 06/02/16 05:59 Dextrose (Dextrose 50% 50ML Syringe) 25-50ML OF 50% DW IV FOR... UD PRN IV 05/03/16 06:00 06/02/16 05:59 Glucagon (Glucagon Inj) 1 mg UD PRN SQ 05/03/16 06:00 06/02/16 05:59 Brimonidine/ Timolol (Combigan 0.2%/ 0.5% Oph Solution) 1 drop BID OP 05/04/16 21:00 06/03/16 20:59 05/06/16 20:37 1 DROP Miscellaneous Information 1 ea 1 ea UD PRN N/A 05/05/16 16:15 06/04/16 16:14 Heparin Sodium/ Dextrose (Heparin 25,000 Unit/500ml D5W) 500 ml @ 20 mls/hr Q24H PRN IV 05/05/16 19:00 06/04/16 18:59 05/06/16 21:18 29 MLS/HR Chlorhexidine Gluconate 15 ml 15 ml BID MT 05/05/16 21:00 06/04/16 20:59 05/06/16 20:36 15 ML Norepinephrine Bitartrate/ Dextrose (Levophed Inj/ D5W 500ml) 508 ml @ 0 mls/hr Q0M PRN IV 05/05/16 19:12 06/04/16 19:11 05/07/16 04:40 96.8 MLS/HR Ioversol 111 ml 111 ml UD PRN IV 05/05/16 19:15 05/09/16 19:14 Pantoprazole Sodium/Syringe (Protonix Inj/ Syringe) 10 ml @ 5 mls/min DAILY@11 IV 05/06/16 11:00 06/05/16 10:59 05/06/16 12:15 5 MLS/MIN Piperacillin Sod/ Tazobactam Sod 1 ea 1 ea UD PRN N/A 05/05/16 20:15 06/04/16 20:14 Piperacillin Sod/ Tazobactam Sod/ Dextrose (Zosyn Iv/D5 100ml) 115 ml @ 28.75 mls/ hr Q12H IV 05/06/16 02:00 05/13/16 01:59 05/07/16 01:35 28.75 MLS/HR Fentanyl Citrate 50 mcg 50 mcg Q2H PRN IV 05/06/16 07:45 05/20/16 07:44 Fentanyl Citrate 250 ml @ 0 mls/hr Q0M PRN IV 05/06/16 07:45 05/20/16 07:44 05/07/16 04:38 15 MLS/HR Dobutamine HCl (DOBUTamine / D5W) 250 ml @ 0 mls/hr Q0M PRN IV 05/06/16 09:00 06/05/16 08:59 05/06/16 18:31 7.7 MLS/HR Vancomycin HCl 1 ea 1 ea UD PRN N/A 05/06/16 10:15 06/05/16 10:14 Insulin Human Regular 250 units/ Sodium Chloride 252.5 ml @ 0 mls/hr DAILY@1130 IV 05/06/16 13:30 06/05/16 13:29 Future Hold 05/06/16 13:43 1.2 MLS/HR Levetiracetam 1000 mg/Dextrose 110 ml @ 440 mls/hr Q24H IV 05/07/16 10:00 06/06/16 09:59 Levetiracetam/ Dextrose (Keppra Iv/D5 100ml) 105 ml @ 420 mls/hr DAILY PRN IV 05/06/16 14:00 06/05/16 13:59 Enteral Nutritional Formula (Impact 1.0 Jovan) 1,000 ml UD OG 05/06/16 14:15 06/05/16 14:14 05/06/16 20:36 1,000 ML Insulin Aspart (novoLOG ASPART) SLIDING SCALE G... Q6 SC 05/07/16 06:45 06/06/16 06:44 I & O: 24-Hour Column 05/07/16 08:00 Intake Total 4333 ml Output Total 630 ml Balance 3703 ml Vital Signs: Date Time Temp Pulse Resp B/P Pulse Ox O2 Delivery O2 Flow Rate FiO2 05/07/16 06:00 64 22 150/27 100 Mechanical Ventilator 30 05/07/16 05:17 30 05/07/16 04:00 30 05/07/16 04:00 100 Mechanical Ventilator 30 05/07/16 04:00 37.2 66 18 133/32 98 Mechanical Ventilator 30 05/07/16 02:40 40 05/07/16 02:00 61 22 121/25 100 Mechanical Ventilator 40 05/07/16 00:00 36.9 61 22 133/27 100 Mechanical Ventilator 40 05/06/16 23:59 100 Mechanical Ventilator 40 05/06/16 23:59 40 05/06/16 23:20 40 05/06/16 22:00 67 22 137/26 100 Mechanical Ventilator 40 05/06/16 20:00 40 05/06/16 20:00 100 Mechanical Ventilator 40 05/06/16 20:00 36.8 60 22 127/25 100 Mechanical Ventilator 40 05/06/16 19:28 40 05/06/16 18:28 40 05/06/16 18:02 36.7 60 22 116/25 100 Mechanical Ventilator 50 05/06/16 16:00 60 22 116/25 100 Mechanical Ventilator 50 05/06/16 16:00 Mechanical Ventilator 50 05/06/16 16:00 50 05/06/16 14:30 50 05/06/16 14:00 60 18 116/29 100 Mechanical Ventilator 60 05/06/16 12:15 60 05/06/16 12:00 60 05/06/16 12:00 60 18 112/35 100 Mechanical Ventilator 60 05/06/16 12:00 Mechanical Ventilator 60 05/06/16 10:00 60 18 125/43 100 Mechanical Ventilator 60 05/06/16 09:10 60 05/06/16 09:00 60 05/06/16 08:00 Mechanical Ventilator 60 05/06/16 08:00 60 05/06/16 08:00 100 Mechanical Ventilator 70 05/06/16 08:00 64 18 138/45 100 Mechanical Ventilator 60 Laboratory Results: Last 24 Hours Test 05/06/16 09:01 05/06/16 12:02 05/06/16 12:25 05/06/16 15:08 Blood Gas Sample Site Art Line Bedside Blood Gas pH (LAB) 7.30 Bedside Blood Gas pCO2 (LAB) 48 mmHg Bedside Blood Gas pO2 (LAB) 284 mmHg Bedside Blood Gas HCO3 (LAB) 24 meq/L Bedside Blood Gas Total CO2 25 mEq/l Bedside Blood Gas Base Excess (LAB) -3.0 meq/L Bedside Blood Gas O2 Saturation 100.0 % Jr Test NA Oxygen Delivery Device Ventilator Bedside Oxygen Rate (breaths/min) 18 Blood Gas Minute Ventilation 9.7 Bedside FiO2 60 % Blood Gas Tidal Volume 500 Blood Gas PEEP 14 Hemoglobin 9.1 g/dL Hematocrit 26.9 % Bedside Glucose 211 mg/dl 153 mg/dl Test 05/06/16 16:48 05/06/16 22:25 05/07/16 00:17 05/07/16 04:55 Hemoglobin 8.8 g/dL 8.7 g/dL 7.9 g/dL Hematocrit 25.1 % 24.8 % 22.5 % Random Cortisol 26.92 mcg/dl Activated Partial Thromboplast Time 136.8 SECONDS 76.3 SECONDS Partial Thromboplastin Ratio 5.3 2.9 White Blood Count 10.98 K/uL Red Blood Count 2.25 M/uL Mean Corpuscular Volume 100.0 fL Mean Corpuscular Hemoglobin 35.1 pg Mean Corpuscular Hemoglobin Concent 35.1 g/dl Platelet Count 132 K/uL Mean Platelet Volume 10.6 fL Neutrophils (%) (Auto) 69.6 % Lymphocytes (%) (Auto) 16.2 % Monocytes (%) (Auto) 8.0 % Eosinophils (%) (Auto) 5.4 % Basophils (%) (Auto) 0.3 % Neutrophils # (Auto) 7.65 K/uL Lymphocytes # (Auto) 1.78 K/uL Monocytes # (Auto) 0.88 K/uL Eosinophils # (Auto) 0.59 K/uL Basophils # (Auto) 0.03 K/uL RDW Standard Deviation 54.3 fL RDW Coefficient of Variation 14.9 % Immature Granulocyte % (Auto) 0.5 % Immature Granulocyte # (Auto) 0.05 K/uL Nucleated RBC Absolute Count (auto) 0.05 K/uL Nucleated Red Blood Cells % 0.5 % Red Blood Cell Morphology Unremarkable Prothrombin Time 15.4 SECONDS Prothromb Time International Ratio 1.4 Sodium Level 129 mmol/L Potassium Level 4.3 mmol/L Chloride Level 94 mmol/L Carbon Dioxide Level 21 mmol/L Anion Gap 14.0 mmol/L Blood Urea Nitrogen 47 mg/dl Creatinine 4.90 mg/dl Est Creatinine Clear Calc Drug Dose 12.2 ml/min Estimated GFR () 11.8 Estimated GFR (Non- 10.1 BUN/Creatinine Ratio 9.5 Random Glucose 120 mg/dl Calcium Level 7.1 mg/dl Phosphorus Level 4.8 mg/dl Magnesium Level 2.0 mg/dl Random Vancomycin Level 18.3 mcg/ml Test 05/07/16 07:15
[2016-05-07] MEDS ORDERED: NURSING VERBAL MED ORDER ONE (09:00)
--- NOTE | 2016-05-07 09:12 | Neurology Consultation ---
Neurology Consultation Date of Consultation: May 07, 2016. Attending Physician: Nai Mari M.D. Primary Care Physician: Vivek Ramirez M.D. Reason for Consultation: ?Seizure History of Present Illness Mr Morrow is an 81 year old male with multiple co-morbidities (type 2 DM, coronary artery disease, end stage renal disease on dialysis, atrial fibrillation on coumadin, systolic CHF (ejection fraction 25%), with pacemaker) who presented on 05/03/16 after a fall at home. He was home after surgery on to try to revise an AV fistula on his left wrist. This fall resulted in a Right humeral and R hip fracture. His humeral fracture was not for surgery, but he had surgery on his Right hip (a Right Bipolar Hip Prosthesis was placed) by Dr Alves on 05/02/16. Post-operatively, he was in PACU and after extubation became bradycardic and hypoxic, and a code blue was called when he was found to be pulseless. He was re -intubated, and overall received 2 doses of epinephrine, 2L of normal saline, and was taken to the ICU. He had another brief code in the ICU, and during both codes received compressions for 2-3 minutes. An emergent bronchoscopy was performed and he had lots of secretions, and was placed on norepinephrine and dobutamine and his BP and saturations improved. He was sedated with propofol and fentanyl. On 05/06/16, Dr Romeo noticed he was very stiff throughout his extremities, and EEG was performed (results below). There was concern for seizures and he was started on Keppra. Currently, his fentanyl was just turned off. He opens his eyes when his name is called. He does not make any purposeful movements, and does not respond to pain. Past Medical/Surgical History Medical Problems: (1) Cellulitis of knee, right Status: Acute (2) Chronic kidney disease Status: Acute (3) Closed fracture of right proximal humerus Status: Acute (4) Dehydration Status: Acute (5) Dysphagia Status: Acute (6) Dysphasia Status: Acute (7) Elevated troponin Status: Acute (8) Fall Status: Acute (9) GI bleed Status: Acute (10) Hypotension Status: Acute (11) Right leg pain Status: Acute (12) Supratherapeutic INR Status: Acute Family History No pertinent FHx from review of records. Social History Quit smoking 55 years prior - retired form [employer] at [employer] Drug Use: none Marital Status: Occupation Status: retired Allergies Coded Allergies: No Known Allergies (Unverified , 04/23/16) Current Inpatient Medications Current Inpatient Medications Medications (Trade) Dose Ordered Sig/Summer Route Start Time Stop Time Status Last Admin Dose Admin Acetaminophen (Tylenol Tab) 650 mg Q4H PRN PO 05/03/16 03:30 06/02/16 03:29 Polyethylene (Miralax Powder Packet) 17 gm DAILY PRN PO 05/03/16 03:30 06/02/16 03:29 Ondansetron HCl (Zofran Inj) 4 mg Q6H PRN IV 05/03/16 03:30 06/02/16 03:29 Atorvastatin Calcium (Lipitor Tab) 80 mg QAM PO 05/03/16 09:00 06/02/16 08:59 05/06/16 12:14 80 MG Levothyroxine Sodium (Synthroid Tab) 150 mcg DAILYBB PO 05/03/16 06:00 06/02/16 05:59 05/07/16 05:41 150 MCG Travoprost (Travatan Z) 1 drops HS OP 05/03/16 21:00 06/02/16 20:59 05/06/16 20:37 1 DROPS Glucose (Glucose 40% Gel) 15-30 GRAMS 15 GRAMS... UD PRN PO 05/03/16 06:00 06/02/16 05:59 Glucose (Glucose Chew Tab) 4-8 Tablets 4 Tabl... UD PRN PO 05/03/16 06:00 06/02/16 05:59 Dextrose (Dextrose 50% 50ML Syringe) 25-50ML OF 50% DW IV FOR... UD PRN IV 05/03/16 06:00 06/02/16 05:59 Glucagon (Glucagon Inj) 1 mg UD PRN SQ 05/03/16 06:00 06/02/16 05:59 Brimonidine/ Timolol (Combigan 0.2%/ 0.5% Oph Solution) 1 drop BID OP 05/04/16 21:00 06/03/16 20:59 05/06/16 20:37 1 DROP Miscellaneous Information 1 ea 1 ea UD PRN N/A 05/05/16 16:15 2/9/17 16:14 Heparin Sodium/ Dextrose (Heparin 25,000 Unit/500ml D5W) 500 ml @ 17 mls/hr Q24H PRN IV 05/05/16 19:00 06/04/16 18:59 05/06/16 21:18 29 MLS/HR Chlorhexidine Gluconate (Peridex Oral Soln) 15 ml BID MT 05/05/16 21:00 06/04/16 20:59 05/06/16 20:36 15 ML Ioversol 111 ml 111 ml UD PRN IV 05/05/16 19:15 05/09/16 19:14 Pantoprazole Sodium/Syringe (Protonix Inj/ Syringe) 10 ml @ 5 mls/min DAILY@11 IV 05/06/16 11:00 06/05/16 10:59 05/06/16 12:15 5 MLS/MIN Piperacillin Sod/ Tazobactam Sod 1 ea 1 ea UD PRN N/A 05/05/16 20:15 06/04/16 20:14 Piperacillin Sod/ Tazobactam Sod/ Dextrose (Zosyn Iv/D5 100ml) 115 ml @ 28.75 mls/ hr Q12H IV 05/06/16 02:00 05/13/16 01:59 05/07/16 01:35 28.75 MLS/HR Fentanyl Citrate 50 mcg 50 mcg Q2H PRN IV 05/06/16 07:45 05/20/16 07:44 Fentanyl Citrate 250 ml @ 0 mls/hr Q0M PRN IV 05/06/16 07:45 05/20/16 07:44 05/07/16 04:38 15 MLS/HR Dobutamine HCl (DOBUTamine / D5W) 250 ml @ 0 mls/hr Q0M PRN IV 05/06/16 09:00 06/05/16 08:59 05/06/16 18:31 7.7 MLS/HR Vancomycin HCl 1 ea 1 ea UD PRN N/A 05/06/16 10:15 06/05/16 10:14 Insulin Human Regular 250 units/ Sodium Chloride 252.5 ml @ 0 mls/hr DAILY@1130 IV 05/06/16 13:30 06/05/16 13:29 Future Hold 05/06/16 13:43 1.2 MLS/HR Levetiracetam 1000 mg/Dextrose 110 ml @ 440 mls/hr Q24H IV 05/07/16 10:00 06/06/16 09:59 Levetiracetam/ Dextrose (Keppra Iv/D5 100ml) 105 ml @ 420 mls/hr DAILY PRN IV 05/06/16 14:00 06/05/16 13:59 Enteral Nutritional Formula (Impact 1.0 Jovan) 1,000 ml UD OG 05/06/16 14:15 06/05/16 14:14 05/06/16 20:36 1,000 ML Insulin Aspart (novoLOG ASPART) SLIDING SCALE G... Q6 SC 05/07/16 06:45 06/06/16 06:44 Miscellaneous Information 1 ea 1 ea ONE ONCE N/A 05/07/16 09:00 05/07/16 09:01 UNV Norepinephrine Bitartrate/ Dextrose (Levophed Inj/ D5W 500ml) 516 ml @ 0 mls/hr Q0M PRN IV 05/07/16 09:00 06/06/16 08:59 Miscellaneous Information (Nursing Heparin Iv Rate Change) 1 ea ONE ONCE N/A 05/07/16 09:00 05/07/16 09:01 UNV Review of Systems Unable to obtain ROS from patient due to altered mental status. Physical Exam Vital Signs (Past 24 Hrs): Date Time Temp Pulse Resp B/P Pulse Ox O2 Delivery O2 Flow Rate FiO2 05/07/16 08:22 65 22 145/23 100 Mechanical Ventilator 30 118/50 05/07/16 08:00 Mechanical Ventilator 30 05/07/16 08:00 37.4 63 22 154/26 100 Mechanical Ventilator 30 05/07/16 08:00 30 05/07/16 06:00 64 22 150/27 100 Mechanical Ventilator 30 05/07/16 05:17 30 05/07/16 04:00 30 05/07/16 04:00 100 Mechanical Ventilator 30 05/07/16 04:00 37.2 66 18 133/32 98 Mechanical Ventilator 30 05/07/16 02:40 40 05/07/16 02:00 61 22 121/25 100 Mechanical Ventilator 40 05/07/16 00:00 36.9 61 22 133/27 100 Mechanical Ventilator 40 05/06/16 23:59 100 Mechanical Ventilator 40 05/06/16 23:59 40 05/06/16 23:20 40 05/06/16 22:00 67 22 137/26 100 Mechanical Ventilator 40 05/06/16 20:00 40 05/06/16 20:00 100 Mechanical Ventilator 40 05/06/16 20:00 36.8 60 22 127/25 100 Mechanical Ventilator 40 05/06/16 19:28 40 05/06/16 18:28 40 05/06/16 18:02 36.7 60 22 116/25 100 Mechanical Ventilator 50 05/06/16 16:00 60 22 116/25 100 Mechanical Ventilator 50 05/06/16 16:00 Mechanical Ventilator 50 05/06/16 16:00 50 05/06/16 14:30 50 05/06/16 14:00 60 18 116/29 100 Mechanical Ventilator 60 05/06/16 12:15 60 05/06/16 12:00 60 05/06/16 12:00 60 18 112/35 100 Mechanical Ventilator 60 05/06/16 12:00 Mechanical Ventilator 60 05/06/16 10:00 60 18 125/43 100 Mechanical Ventilator 60 05/06/16 09:10 60 General: Intubated, sedation turned off. Pupils: Equal, midrange, responsive to light. Neuro: Would not comply with cranial nerve exam. Gag and corneal reflexes seem intact. Would not comply with motor, coordination, or sensory exams. No response to painful touch. CVS: Irregular heart rate. No murmurs audible. Chest: Hoarse breath sounds bilaterally Abd: Soft, nontender Extremities: Swollen arms bilaterally. No peripheral edema. Laboratory Results Past 24 Hours: 05/07/16 04:55 Red Blood Count 2.25, Mean Corpuscular Volume 100.0 #, Mean Corpuscular Hemoglobin 35.1, Mean Corpuscular Hemoglobin Concent 35.1, Mean Platelet Volume 10.6, Neutrophils (%) (Auto) 69.6, Lymphocytes (%) (Auto) 16.2, Monocytes (%) ( Auto) 8.0, Eosinophils (%) (Auto) 5.4, Basophils (%) (Auto) 0.3, Neutrophils # ( Auto) 7.65, Lymphocytes # (Auto) 1.78, Monocytes # (Auto) 0.88, Eosinophils # ( Auto) 0.59, Basophils # (Auto) 0.03 05/07/16 04:55 Test 05/06/16 09:01 05/06/16 15:08 05/06/16 16:48 05/07/16 04:55 Blood Gas Sample Site Art Line Bedside Blood Gas pH (LAB) 7.30 (7.35-7.45) Bedside Blood Gas pCO2 (LAB) 48 mmHg (35-46) Bedside Blood Gas pO2 (LAB) 284 mmHg (80-95) Bedside Blood Gas HCO3 (LAB) 24 meq/L (19-24) Bedside Blood Gas Total CO2 25 mEq/l (24-31) Bedside Blood Gas Base Excess (LAB) -3.0 meq/L (-9-1.8) Bedside Blood Gas O2 Saturation 100.0 % (90-95) Jr Test NA Oxygen Delivery Device Ventilator Bedside Oxygen Rate (breaths/min) 18 Blood Gas Minute Ventilation 9.7 Bedside FiO2 60 % Blood Gas Tidal Volume 500 Blood Gas PEEP 14 Bedside Glucose 153 mg/dl (70-99) Random Cortisol 26.92 mcg/dl White Blood Count 10.98 K/uL (4.8-10.8) Red Blood Count 2.25 M/uL (4.7-6.1) Hemoglobin 7.9 g/dL (14.0-18.0) Hematocrit 22.5 % (42-52) Mean Corpuscular Volume 100.0 fL (80-100) Mean Corpuscular Hemoglobin 35.1 pg (25-34) Mean Corpuscular Hemoglobin Concent 35.1 g/dl (32-36) Platelet Count 132 K/uL (130-400) Mean Platelet Volume 10.6 fL (7.4-10.4) Neutrophils (%) (Auto) 69.6 % Lymphocytes (%) (Auto) 16.2 % Monocytes (%) (Auto) 8.0 % Eosinophils (%) (Auto) 5.4 % Basophils (%) (Auto) 0.3 % Neutrophils # (Auto) 7.65 K/uL (1.4-6.5) Lymphocytes # (Auto) 1.78 K/uL (1.2-3.4) Monocytes # (Auto) 0.88 K/uL (0.11-0.59) Eosinophils # (Auto) 0.59 K/uL (0-0.5) Basophils # (Auto) 0.03 K/uL (0-0.2) RDW Standard Deviation 54.3 fL (36.4-46.3) RDW Coefficient of Variation 14.9 % (11.5-14.5) Immature Granulocyte % (Auto) 0.5 % Immature Granulocyte # (Auto) 0.05 K/uL (0.00-0.02) Nucleated RBC Absolute Count (auto) 0.05 K/uL (0-0) Nucleated Red Blood Cells % 0.5 % Red Blood Cell Morphology Unremarkable Prothrombin Time 15.4 SECONDS (9.0-12.0) Prothromb Time International Ratio 1.4 (0.9-1.1) Anion Gap 14.0 mmol/L (3-11) Est Creatinine Clear Calc Drug Dose 12.2 ml/min Estimated GFR () 11.8 Estimated GFR (Non- 10.1 BUN/Creatinine Ratio 9.5 (10-20) Calcium Level 7.1 mg/dl (8.5-10.1) Phosphorus Level 4.8 mg/dl (2.5-4.9) Magnesium Level 2.0 mg/dl (1.8-2.4) Random Vancomycin Level 18.3 mcg/ml Test 05/07/16 08:08 Activated Partial Thromboplast Time 78.7 SECONDS (21.0-31.0) Partial Thromboplastin Ratio 3.[address] SCAN OF THE BRAIN WITHOUT IV CONTRAST CLINICAL HISTORY: Status post cardiac arrest. Seizure. COMPARISON STUDY: CT of the brain dated 05/03/2016. TECHNIQUE: Unenhanced axial CT scan of the brain is performed from the vertex to the skull base. The examination is modestly degraded by motion artifact. CT DOSE: 614.27 mGy.cm FINDINGS: Endotracheal and enteric tubes are noted on the sports writer tomogram. Brain parenchyma: There are age-related involutional changes noting moderate confluent subcortical and periventricular microangiopathic change. 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 There is no hemorrhage, mass effect, or evidence of acute territorial ischemia by CT criteria. Wallis-white matter is preserved. No extra-axial fluid collection is seen. Ventricles, sulci, cisterns: Prominent secondary to involutional change. Intracranial vasculature: There is advanced atherosclerotic calcification of the cavernous carotid and vertebral. Calvarium: Unremarkable. Sinuses and mastoids: A retention cyst pancreas mucosal thickening is identified in the right maxillary antrum. Trace mucosal thickening is also seen in the right frontal sinus. The remaining visualized paranasal sinuses are clear. The mastoid air cells are well pneumatized. Orbits: The bony orbits are grossly intact. IMPRESSION: Senescent changes as above with no hemorrhage, mass effect, or evidence of acute territorial ischemia by CT criteria. ' EEG This is an abnormal routine EEG secondary to asymmetric moderate background disorganization and slowing right hemisphere greater than left. There was no electrographic seizures or epileptiform discharges. Clinical Correlation This EEG indicates structural or functional cerebral dysfunction in the right greater than left hemisphere. 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 No evidence of seizure activity at this time, though is at risk of developing seizures with his injury. Plan Recommendations: 1. Would continue Keppra for now, and re-assess his mental status as his sedation is weaned. If no indication in a few days, could stop. Would have concerns about Keppra affecting his mental clarity if continued in the [employer] in this elderly patient. 2. Can repeat CT Head in a few days to evaluate for brain injury. MRI brain would be preferred but unable to complete due to pacemaker. 3. Avoid hypotension, as ICU team is managing. Thank you for allowing us to participate in the care of this patient. We will continue to follow. Neurology attending addendum: Patient was seen and evaluated with resident physician. Pertinent aspects of the history and physical were reviewed and confirmed by myself. Assessment and plan discussed with resident and I agree. On exam, the patient would at times open his eyes to voice and sternal rub. Pupils were mid range, equal and reactive to light. Funduscopic examination difficult to obtain as the patient was resisting eye opening. No facial asymmetry is noted at rest. Patient is intubated. Recently taken off sedation this morning. He would lightly squeeze his hands and move his toes left greater than right. Did not have good withdrawal of extremities to deep nail pressure which could' ve been secondary to recent sedation. Difficult to obtain deep tendon reflexes. Toes were equivocal to plantar stimulation. EEG was reviewed by myself and noted to have diffuse background disorganization and slowing right hemisphere greater than left. This likely indicates encephalopathy of nonspecific etiology and a structural or functional dysfunction on the right greater than left. This could be consistent with some ischemic changes right greater than left. As CT of the head report and images reviewed by myself and unremarkable at this time for acute changes. 81-year-old male with acute encephalopathy after 2 in-hospital cardiac arrest concerning for anoxic brain injury. No clear seizure activity, but patient is at high risk in the setting of likely anoxic brain injury. Recent sedation with fentanyl and propofol could contribute to encephalopathy. Agree with trying to wean off sedation for better neurological exam. Since the patient is at high risk for subclinical seizures in the setting of likely anoxic brain injury, it is reasonable to continue Keppra for now. If the patient wakes up in the next couple of days with no clear seizure activity, it would be reasonable to try taking him off Keppra. In addition Keppra could contribute to some mental confusion in an elderly patient. Avoid hypotension and dehydration We will try to reevaluate the patient tomorrow to see if if we can get a better neurological exam of sedation. Ideally would like to get an MRI of the brain to see if there is any anoxic brain injury visible, but with cardiac defibrillator not able to achieve. Could consider repeating CT of the head in 1-2 days to see if there is any ischemic changes noted. -Lore Doll, DO Resident Tracking Resident Involvement: Resident Care Provided Care Provided: Adult Hospital Medicine (Neurology)
[2016-05-07] MEDS ORDERED: SODIUM CHLORIDE 0.9% 1000ML 1,000 ML IV PRN (09:25)
[2016-05-07 09:56] LABS: HEMATOCRIT 21.8 % (42-52)
[2016-05-07] MEDS ORDERED: LEVETIRACTAM 1000 MG in DEXTROSE 5% 100ML IV SCH (10:00)
[2016-05-07] MEDS ORDERED: IRON SUCROSE INJ 100 MG in SYRINGE 0 ML IV SCH (10:00)
[2016-05-07] MEDS: CHLORHEXIDINE GLUCONATE 0.12% 480 ML MT SCH ×2 (10:00→21:00)
[2016-05-07] MEDS ORDERED: EPOETIN ALFA 10,000 UNITS/ML VIAL IV. SCH (10:00)
[2016-05-07] MEDS: NOREPINEPHRINE BIT INJ 16 MG in DEXTROSE 5% 500ML 500 ML IV PRN ×2 (10:01→22:38)
[2016-05-07] MEDS: ATORVASTATIN 40 MG TAB PO SCH (10:01)
[2016-05-07] MEDS: PANTOprazole INJ 40 MG in SYRINGE 0 ML IV SCH (10:02)
[2016-05-07] MEDS: BRIMONIDINE TARTRATE-TIMOLOL M 1 DROP BTL OP SCH ×2 (10:02→21:00)
--- NOTE | 2016-05-07 10:24 | NEPHROLOGY PROGRESS NOTE ---
DATE: 05/07/2016 SUBJECTIVE: Mr. Morrow remains obtunded on a ventilator. However, he does seem to be responsive to painful stimuli and he will turn his head and temporarily open his eyes to verbal stimuli. Over the course of the past 24 hours, he has been weaned from his Diprivan drip, but remains on fentanyl. His pressors are slowly being weaned as well. He is now down to dobutamine 2 mcg per kilogram per minute and Levophed 0.3 mcg per kilogram per minute. He is also on a heparin drip at 850 units per hour. His vital signs have been stable and there have been no obvious acute events over the course of the past 24 hours. His oxygen saturations remain quite good. His FiO2 is now down to 30%. He remains intubated and on a ventilator. OBJECTIVE: VITAL SIGNS: On physical exam at the current time, his blood pressure measured by cuff in the right arm is 118/50. His arterial line, however, measures his blood pressure at 145/23. His pulse is 65 and basically regular in a paced rhythm, although occasional supraventricular beats are noted. His respiratory rate is 22 and his pulse ox is 100% on the ventilator. SKIN: Shows normal skin turgor. He has some ecchymoses in his right upper arm and significant ecchymoses in the area of the left antecubital fossa extending into both the upper and lower arms. 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 He has marked dystrophic nail changes on his lower extremities as well. He also has some dry skin on his lower extremities. There is no evidence of lymphangitis or lymphadenopathy. HEAD: Grossly normal. EYES: Grossly normal. There is no obvious conjunctival icterus. Pupils seem constricted, but equal. I cannot die engraving supervisor whether or not there is any significant response to light. EAR, NOSE, MOUTH AND THROAT: Unremarkable. He does have an endotracheal tube in place. NECK: Supple. He has jugular venous distention lying at about 45 degrees and extending about 3 cm above the clavicle. An IJ dialysis catheter is present on the right side. He has a pacemaker on the left side as well as a central venous line. CHEST: Clear to auscultation. CARDIAC: Shows a basically regular rhythm (paced). He has a soft systolic murmur at the base radiating toward the neck. He has a systolic murmur at the apex, also radiating toward the axilla. ABDOMEN: Nontender. There is no obvious organomegaly or mass. Bowel sounds are present. He does have an NG tube in place and is receiving enteral hyperalimentation. EXTREMITIES: Show the skin and nail changes noted above. He has swelling of both arms, left bit more significant than the right with ecchymoses as described and the venous stasis changes as described. He has bilateral femoral murmurs. Peripheral pulses in his feet are difficult to feel. NEUROLOGIC: Shows him to be responsive to painful stimuli. He withdraws both legs, the right with more strength than the left. He has an upgoing toe on the left. His electroencephalogram shows compromise changes on the right side as opposed to the left with evidence of right-sided background disorganization and swelling. PERTINENT LABORATORY WORK: From today shows a white count of 10,980. He has 69.6% neutrophils, 16.2% lymphocytes, 8.0% monocytes, 5.4% eosinophils and 0.3% basophils. His hemoglobin is 7.9, his hematocrit 22.5, and red cell indices are macrocytic. His partial thromboplastin time today is 78.7 with a PTTR of 3.0. Clinical chemistries from today show a sodium of 129 mmol/L, potassium 4.3 mmol/L, chloride 94 mmol/L, and CO2 content 21 mmol/L. His anion gap is 14, but taking into account yesterday's albumin, the probability is that his anion gap is probably more in the range of 17-18. His random blood sugar this morning is 120 and his sugars vary from 120 to 211. His serum calcium is 7.1. His phosphate 4.8. His magnesium 2.0. A random cortisol done yesterday was 26.92. Chest x-ray done this morning shows satisfactory positioning of all lines and tubes. He has some evidence of mild pulmonary edema and small bilateral pleural effusions and mild bibasilar opacities. ASSESSMENT: Some improvement in neurologic status, although it may be that he did suffer a right hemispheric cerebrovascular accident with his hypotensive episode. Nonetheless, he appears to be doing better. Pressors are being slowly weaned. He does have an obvious metabolic acidosis. Blood gases were not done today, so it is difficult to determine whether or not any other acid base disturbance is present at this time. He is mildly hyponatremic. There has been a further drop in his hemoglobin to 7.9%. He is on a heparin drip. PLAN: From the renal standpoint, I think he needs to be dialyzed today. Hopefully, that will help correct his electrolytes and obviously should improve his acidosis. Additionally, we will take the opportunity of his dialysis to transfuse him with 2 units of packed cells. We will try to remove about 3 liters of fluid. Pulling that fluid may be somewhat difficult given his low serum albumin. We certainly will avoid having a recurrent drop in his blood pressure. Pressors will likely be maintained through his dialysis treatment. No other immediate recommended changes.
--- NOTE | 2016-05-07 13:33 | Orthopedic Progress Note ---
Orthopedic Progress Note Date of Service May 07, 2016. Subjective Post OP Day: 2 Additional Notes: On the ventilator but recently put on CPAP. Pt still somewhat obtunded but responding a bit more to physical/verbal stimuli Objective Dressing with drainage but not leaking through the tegaderm. Right leg has the appearance of being shorter but is flexed at the knee. Mild external rotation. Date Time Temp Pulse Resp B/P Pulse Ox O2 Delivery O2 Flow Rate FiO2 05/07/16 12:00 CPAP 30 Mechanical Ventilator 05/07/16 12:00 37.7 63 14 128/28 100 CPAP 30 110/47 Mechanical Ventilator 05/07/16 12:00 30 05/07/16 11:33 30 05/07/16 11:27 30 05/07/16 10:36 61 22 149/29 100 Mechanical Ventilator 30 117/46 05/07/16 08:22 65 22 145/23 100 Mechanical Ventilator 30 118/50 05/07/16 08:00 Mechanical Ventilator 30 05/07/16 08:00 37.4 63 22 154/26 100 Mechanical Ventilator 30 05/07/16 08:00 Mechanical Ventilator 30 05/07/16 08:00 30 05/07/16 07:40 30 05/07/16 06:00 64 22 150/27 100 Mechanical Ventilator 30 05/07/16 05:17 30 05/07/16 04:00 30 05/07/16 04:00 100 Mechanical Ventilator 30 05/07/16 04:00 37.2 66 18 133/32 98 Mechanical Ventilator 30 05/07/16 02:40 40 05/07/16 02:00 61 22 121/25 100 Mechanical Ventilator 40 05/07/16 00:00 36.9 61 22 133/27 100 Mechanical Ventilator 40 05/06/16 23:59 100 Mechanical Ventilator 40 05/06/16 23:59 40 05/06/16 23:20 40 05/06/16 22:00 67 22 137/26 100 Mechanical Ventilator 40 05/06/16 20:00 40 05/06/16 20:00 100 Mechanical Ventilator 40 05/06/16 20:00 36.8 60 22 127/25 100 Mechanical Ventilator 40 05/06/16 19:28 40 05/06/16 18:28 40 05/06/16 18:02 36.7 60 22 116/25 100 Mechanical Ventilator 50 05/06/16 16:00 60 22 116/25 100 Mechanical Ventilator 50 05/06/16 16:00 Mechanical Ventilator 50 05/06/16 16:00 50 05/06/16 14:30 50 05/06/16 14:00 60 18 116/29 100 Mechanical Ventilator 60 Laboratory Results 24 Hours: Test 05/06/16 16:48 05/06/16 22:25 05/07/16 04:55 05/07/16 09:43 Hematocrit 25.1 % 24.8 % 22.5 % 21.8 % Hemoglobin 8.8 g/dL 8.7 g/dL 7.9 g/dL 7.9 g/dL White Blood Count 10.98 K/uL Red Blood Count 2.25 M/uL Mean Corpuscular Volume 100.0 fL Mean Corpuscular Hemoglobin 35.1 pg Mean Corpuscular Hemoglobin Concent 35.1 g/dl Platelet Count 132 K/uL Mean Platelet Volume 10.6 fL Neutrophils (%) (Auto) 69.6 % Lymphocytes (%) (Auto) 16.2 % Monocytes (%) (Auto) 8.0 % Eosinophils (%) (Auto) 5.4 % Basophils (%) (Auto) 0.3 % Neutrophils # (Auto) 7.65 K/uL Lymphocytes # (Auto) 1.78 K/uL Monocytes # (Auto) 0.88 K/uL Eosinophils # (Auto) 0.59 K/uL Basophils # (Auto) 0.03 K/uL Prothromb Time International Ratio 1.4 Prothrombin Time 15.4 SECONDS Assessment & Plan Assessment: RIGHT HIP FRACTURE POD 2 HEMIARTHROPLASTY HYPOXIA HYPOTENSION Plan: Ok to add abduction pillow due to patients ability to flex/entend RLE at any moment. Change dressing today. Hope is to extubate tomorrow if tolerating weaning off........ (1) Altered mental status Chronic (2) Acute respiratory failure Acute (3) End stage renal disease Chronic (4) Anemia Acute (5) Acute on chronic systolic (congestive) heart failure (6) Diabetes Chronic (7) Leukocytosis (8) Constipation (9) Hypothyroid (10) Fall Acute (11) access Inhouse Planning Pain Management: Percocet, Morphine DVT Prophylaxis: TEDs, SCDs, Heparin Drip
--- NOTE | 2016-05-07 15:04 | CARDIOLOGY PROGRESS NOTE ---
DATE: 05/07/2016 SUBJECTIVE: Mr. Morrow is intubated in the intensive care unit. Minimally responsive to verbal commands. OBJECTIVE: VITAL SIGNS: Blood pressure 125/53 with a regular pulse of 66. Respiratory rate is 16. The patient is afebrile at 37.2 degree Celsius. Saturations 100% on 30% FIO2. NECK: Supple with full carotid upstrokes. Jugular venous pressure is difficult to assess. CARDIOVASCULAR: Reveals a regular rhythm with distant heart sounds. A 1/6 basal systolic ejection murmur is noted. LUNGS: No coarse breath sounds throughout. CHEST: Reveals a palpable pacemaker in the left subclavicular region. Dialysis catheter in the right subclavicular region. ABDOMEN: Soft without bruits. EXTREMITIES: No changes. DATA: CBC notes hemoglobin of 7.8, hematocrit 22.5, white count 10.9, and platelet count 132,000. Electrolytes note sodium of 129, potassium 4.3, chloride 94, bicarb 21, BUN 47, creatinine 4.9, glucose 120. PTT is 78.7. IMPRESSION AND PLAN: 1. Status post cardiac arrest. 2. Hypotension -- patient receiving pressors for support. They are slowly being weaned. 3. Ischemic cardiomyopathy -- ejection fraction less than 20%. 4. Chronic systolic congestive heart failure -- managed by hemodialysis. 5. Anemia -- to receive blood transfusion today. 6. Permanent atrial fibrillation. 7. Status post single chamber implantable cardioverter defibrillator - August 2015. [facility]
--- NOTE | 2016-05-07 15:13 | Pharmacy Progress Note ---
Glycemic: Assessment & Plan Date of Service May 07, 2016. Assessment & Plan The patient received ~4.7 units of insulin via drip over 5 hr, then it was held per parameters. Lantus 5 units x1 dose 05/07@0400. Impact tube feeding started evening @10 ml/hr. BSGs ranging 113 - 153 mg/dl over the past 24hrs. He has not needed any short acting insulin coverage since the drip was stopped. Tube feeding is to increase to 20 ml/hr. Still on multiple drips, some double concentrated. Will maintain q6h BSG checks and reassess in am. * Basal insulin: none at this time * Correctional Insulin: Novolog Correction per scale q6h Goal Range: Low 140 mg/dL - High 180 mg/dL Correction Factor: 50 mg/dL/unit * Prandial insulin: none at this time BSGs continue to improve, no changes needed to inpatient regimen at this time. Pharmacy will continue to monitor patient daily and write orders per [facility] inpatient glycemic control protocol. Thanks. * Please note that the plan above was derived based on current level of insulin resistance and hospital stress. These recommendations are appropriate for inpatient admission only. Plan of care upon discharge will need to be reassessed to avoid potential outpatient hypo/hyperglycemia.
[2016-05-07] MEDS: PIPERACILL/TAZOBAC IV 3.375 GM in DEXTROSE 5% 50ML 50 ML IV SCH (17:25)
--- NOTE | 2016-05-07 17:37 | Progress Note ---
Progress Note Addendum to the critical care progress note from earlier today. --- Critical care time 60min.
--- NOTE | 2016-05-07 17:52 | Family Medicine Progress Note ---
Progress Note Date of Service May 07, 2016. Subjective Pt evaluation today including: conversation w/ patient, conversation w/ family , physical exam, chart review, lab review, review of studies, conversation w/ professional employer consultant, review of inpatient medication list Pain: unable to assess, patient non-repsonsive Voiding: peraza catheter in place Patient is intubated. responds to painful stimuli Additional Comments: could not assess Review of systems. Patient intubated, nonresponsive Medications Current Inpatient Medications Medications (Trade) Dose Ordered Sig/Summer Route Start Time Stop Time Status Last Admin Dose Admin Acetaminophen (Tylenol Tab) 650 mg Q4H PRN PO 05/03/16 03:30 06/02/16 03:29 Polyethylene (Miralax Powder Packet) 17 gm DAILY PRN PO 05/03/16 03:30 06/02/16 03:29 05/07/16 10:01 17 GM Ondansetron HCl (Zofran Inj) 4 mg Q6H PRN IV 05/03/16 03:30 06/02/16 03:29 Atorvastatin Calcium (Lipitor Tab) 80 mg QAM PO 05/03/16 09:00 06/02/16 08:59 05/07/16 10:01 80 MG Levothyroxine Sodium (Synthroid Tab) 150 mcg DAILYBB PO 05/03/16 06:00 06/02/16 05:59 05/07/16 05:41 150 MCG Travoprost (Travatan Z) 1 drops HS OP 05/03/16 21:00 06/02/16 20:59 05/06/16 20:37 1 DROPS Glucose (Glucose 40% Gel) 15-30 GRAMS 15 GRAMS... UD PRN PO 05/03/16 06:00 06/02/16 05:59 Glucose (Glucose Chew Tab) 4-8 Tablets 4 Tabl... UD PRN PO 05/03/16 06:00 06/02/16 05:59 Dextrose (Dextrose 50% 50ML Syringe) 25-50ML OF 50% DW IV FOR... UD PRN IV 05/03/16 06:00 06/02/16 05:59 Glucagon (Glucagon Inj) 1 mg UD PRN SQ 05/03/16 06:00 06/02/16 05:59 Brimonidine/ Timolol (Combigan 0.2%/ 0.5% Oph Solution) 1 drop BID OP 1/9/17 21:00 06/03/16 20:59 05/07/16 10:02 1 DROP Miscellaneous Information 1 ea 1 ea UD PRN N/A 05/05/16 16:15 06/04/16 16:14 Heparin Sodium/ Dextrose (Heparin 25,000 Unit/500ml D5W) 500 ml @ 17 mls/hr Q24H PRN IV 05/05/16 19:00 06/04/16 18:59 05/06/16 21:18 29 MLS/HR Chlorhexidine Gluconate (Peridex Oral Soln) 15 ml BID MT 05/05/16 21:00 06/04/16 20:59 05/07/16 10:00 15 ML Ioversol 111 ml 111 ml UD PRN IV 05/05/16 19:15 05/09/16 19:14 Pantoprazole Sodium/Syringe (Protonix Inj/ Syringe) 10 ml @ 5 mls/min DAILY@11 IV 05/06/16 11:00 06/05/16 10:59 05/07/16 10:02 5 MLS/MIN Piperacillin Sod/ Tazobactam Sod (Consult) 1 ea UD PRN N/A 05/05/16 20:15 06/04/16 20:14 Fentanyl Citrate 50 mcg 50 mcg Q2H PRN IV 05/06/16 07:45 05/20/16 07:44 Fentanyl Citrate 250 ml @ 0 mls/hr Q0M PRN IV 05/06/16 07:45 05/20/16 07:44 05/07/16 04:38 15 MLS/HR Dobutamine HCl 250 ml @ 0 mls/hr Q0M PRN IV 05/06/16 09:00 06/05/16 08:59 05/06/16 18:31 7.7 MLS/HR Insulin Human Regular 250 units/ Sodium Chloride 252.5 ml @ 0 mls/hr DAILY@1130 IV 05/06/16 13:30 06/05/16 13:29 Future Hold 05/06/16 13:43 1.2 MLS/HR Levetiracetam 1000 mg/Dextrose 110 ml @ 440 mls/hr Q24H IV 05/07/16 10:00 06/06/16 09:59 05/07/16 17:25 440 MLS/HR Levetiracetam/ Dextrose (Keppra Iv/D5 100ml) 105 ml @ 420 mls/hr DAILY PRN IV 05/06/16 14:00 06/05/16 13:59 Enteral Nutritional Formula (Impact 1.0 Jovan) 1,000 ml UD OG 05/06/16 14:15 06/05/16 14:14 05/06/16 20:36 1,000 ML Insulin Aspart SLIDING SCALE G... Q6 SC 05/07/16 06:45 06/06/16 06:44 Norepinephrine Bitartrate/ Dextrose (Levophed Inj/ D5W 500ml) 516 ml @ 0 mls/hr Q0M PRN IV 05/07/16 09:00 06/06/16 08:59 05/07/16 10:01 45 MLS/HR Epoetin Johnny 61327 units 10,000 units TODAY@1000 IV. 05/07/16 10:00 05/07/16 18:00 Iron Sucrose 100 mg/Syringe 5 ml @ 1 mls/min TODAY@1000 IV 05/07/16 10:00 05/07/16 18:00 05/07/16 17:00 1 MLS/MIN Sodium Chloride (Nss 1000ml) 1,000 ml @ 0 mls/hr Q0M PRN IV 05/07/16 09:25 05/07/16 21:24 Polyethylene (Miralax Powder Packet) 17 gm DAILY PO 05/08/16 09:00 06/07/16 08:59 Docusate Sodium 100 mg 100 mg BID PO 05/07/16 21:00 06/06/16 20:59 Piperacillin Sod/ Tazobactam Sod/ Dextrose (Zosyn Iv/D5 50ml) 65 ml @ 16.25 mls/ hr Q12H IV 05/07/16 14:00 05/13/16 13:59 05/07/16 17:25 16.25 MLS/HR Objective Vital Signs Date Time Temp Pulse Resp B/P Pulse Ox O2 Delivery O2 Flow Rate FiO2 05/07/16 17:15 79 115/72 05/07/16 17:00 66 127/64 05/07/16 16:45 73 123/40 05/07/16 16:30 68 113/68 05/07/16 16:15 81 136/49 05/07/16 16:00 77 126/59 05/07/16 16:00 30 05/07/16 16:00 CPAP 30 Mechanical Ventilator 05/07/16 16:00 36.9 77 15 126/59 100 CPAP 30 Mechanical Ventilator 05/07/16 15:45 74 124/48 05/07/16 15:30 66 123/62 05/07/16 15:15 65 125/47 05/07/16 15:05 36.7 66 15 121/62 100 05/07/16 15:00 66 121/62 05/07/16 14:45 63 123/57 05/07/16 14:30 66 112/56 05/07/16 14:30 30 05/07/16 14:15 37.2 67 15 122/49 100 05/07/16 14:15 66 125/53 05/07/16 14:00 63 122/49 05/07/16 13:45 66 107/40 05/07/16 13:36 37.7 66 109/42 05/07/16 12:01 64 100 05/07/16 12:00 CPAP 30 Mechanical Ventilator 05/07/16 12:00 37.7 63 14 128/28 100 CPAP 30 110/47 Mechanical Ventilator 05/07/16 12:00 30 05/07/16 11:33 30 05/07/16 11:27 30 05/07/16 10:36 61 22 149/29 100 Mechanical Ventilator 30 117/46 05/07/16 08:22 65 22 145/23 100 Mechanical Ventilator 30 118/50 05/07/16 08:00 Mechanical Ventilator 30 05/07/16 08:00 37.4 63 22 154/26 100 Mechanical Ventilator 30 05/07/16 08:00 Mechanical Ventilator 30 05/07/16 08:00 30 05/07/16 07:40 30 05/07/16 06:00 64 22 150/27 100 Mechanical Ventilator 30 05/07/16 05:17 30 05/07/16 04:00 30 05/07/16 04:00 100 Mechanical Ventilator 30 05/07/16 04:00 37.2 66 18 133/32 98 Mechanical Ventilator 30 05/07/16 02:40 40 05/07/16 02:00 61 22 121/25 100 Mechanical Ventilator 40 05/07/16 00:00 36.9 61 22 133/27 100 Mechanical Ventilator 40 05/06/16 23:59 100 Mechanical Ventilator 40 05/06/16 23:59 40 05/06/16 23:20 40 05/06/16 22:00 67 22 137/26 100 Mechanical Ventilator 40 05/06/16 20:00 40 05/06/16 20:00 100 Mechanical Ventilator 40 05/06/16 20:00 36.8 60 22 127/25 100 Mechanical Ventilator 40 05/06/16 19:28 40 05/06/16 18:28 40 05/06/16 18:02 36.7 60 22 116/25 100 Mechanical Ventilator 50 Physical Exam General Appearance: + pertinent finding (intubated, on vetilator ) Eyes: PERRL Neck: supple, no adenopathy Respiratory/Chest: lungs clear, normal breath sounds Cardiovascular: regular rate, rhythm, no murmur Abdomen: normal bowel sounds, soft Extremities: + pertinent finding (ecchymoses antecubital fossa Left, swelling of left arm) Skin: + pertinent finding (Bilateral lower extremities, dry, pealing) Laboratory Results Results Past 24 Hours Test 05/06/16 20:01 05/06/16 21:02 05/06/16 21:57 05/06/16 22:25 Range/Units Bedside Glucose (other) 114 117 126 70-99 mg/dl Hemoglobin 8.7 14.0-18.0 g/dL Hematocrit 24.8 42-52 % Activated Partial Thromboplast Time 136.8 21.0-31.0 SECONDS Partial Thromboplastin Ratio 5.3 Test 05/06/16 23:51 05/07/16 00:17 05/07/16 01:03 05/07/16 01:46 Range/Units Bedside Glucose (other) 120 113 109 70-99 mg/dl Activated Partial Thromboplast Time 76.3 21.0-31.0 SECONDS Partial Thromboplastin Ratio 2.9 Test 05/07/16 03:17 05/07/16 04:19 05/07/16 04:55 05/07/16 06:37 Range/Units Bedside Glucose (other) 115 113 122 70-99 mg/dl White Blood Count 10.98 4.8-10.8 K/uL Red Blood Count 2.25 4.7-6.1 M/uL Hemoglobin 7.9 14.0-18.0 g/dL Hematocrit 22.5 42-52 % Mean Corpuscular Volume 100.0 80-100 fL Mean Corpuscular Hemoglobin 35.1 25-34 pg Mean Corpuscular Hemoglobin Concent 35.1 32-36 g/dl Platelet Count 132 130-400 K/uL Mean Platelet Volume 10.6 7.4-10.4 fL Neutrophils (%) (Auto) 69.6 % Lymphocytes (%) (Auto) 16.2 % Monocytes (%) (Auto) 8.0 % Eosinophils (%) (Auto) 5.4 % Basophils (%) (Auto) 0.3 % Neutrophils # (Auto) 7.65 1.4-6.5 K/uL Lymphocytes # (Auto) 1.78 1.2-3.4 K/uL Monocytes # (Auto) 0.88 0.11-0.59 K/uL Eosinophils # (Auto) 0.59 0-0.5 K/uL Basophils # (Auto) 0.03 0-0.2 K/uL RDW Standard Deviation 54.3 36.4-46.3 fL RDW Coefficient of Variation 14.9 11.5-14.5 % Immature Granulocyte % (Auto) 0.5 % Immature Granulocyte # (Auto) 0.05 0.00-0.02 K/uL Nucleated RBC Absolute Count (auto) 0.05 0-0 K/uL Nucleated Red Blood Cells % 0.5 % Red Blood Cell Morphology Unremarkable Prothrombin Time 15.4 9.0-12.0 SECONDS Prothromb Time International Ratio 1.4 0.9-1.1 Sodium Level 129 136-145 mmol/L Potassium Level 4.3 3.5-5.1 mmol/L Chloride Level 94 98-107 mmol/L Carbon Dioxide Level 21 21-32 mmol/L Anion Gap 14.0 3-11 mmol/L Blood Urea Nitrogen 47 7-18 mg/dl Creatinine 4.90 0.60-1.40 mg/dl Est Creatinine Clear Calc Drug Dose 12.2 ml/min Estimated GFR () 11.8 Estimated GFR (Non- 10.1 BUN/Creatinine Ratio 9.5 10-20 Random Glucose 120 70-99 mg/dl Calcium Level 7.1 8.5-10.1 mg/dl Phosphorus Level 4.8 2.5-4.9 mg/dl Magnesium Level 2.0 1.8-2.4 mg/dl Random Vancomycin Level 18.3 mcg/ml Test 05/07/16 08:08 05/07/16 09:43 05/07/16 12:10 05/07/16 14:45 Range/Units Activated Partial Thromboplast Time 78.7 21.0-31.0 SECONDS Partial Thromboplastin Ratio 3.0 Hemoglobin 7.9 14.0-18.0 g/dL Hematocrit 21.8 42-52 % Bedside Glucose (other) 114 70-99 mg/dl Microbiology Results 05/07/16 Gram Stain - Final, Resulted 05/07/16 Sputum Culture, Resulted Pending Assessment and Plan 81 yo M with hx of CHF, CAD, AFib, ESRD p/w with hx of fall at home w/ resultant Rt displaced humeral fracture, partially displaced R femoral neck fracture s/p hemiarthroplasty of the Rt Hip on 05/05/16 now s/p Post-op cardiac arrest S/P Post-operative Cardiac arrest resuscitated x 2 -unknown etiology, -likely resulted in Anoxic brain injury -currently intubated in ICU Hypotensive shock -currently on Levophed. weaning off dobutamine -Management per distribution lineman Seizures CT head: Senescent changes with no hemorrhage, mass effect, or evidence of acute territorial ischemia EEG: indicates structural or functional cerebral dysfunction in the right greater than left hemisphere, no electrographic seizures or epileptiform discharges Per Neurology, will need repeat CT in a few days for evaluation of brain injury as MRI contraindicated due to pacemaker Continue Kera Rt humeral fracture and R femoral fracture - s/p Right Hip hemiarthroplasty (POD 1) ESRD -Cr 4.1--> 4.9 - Dialysis today, management per Dr. Ramirez Hx of Afib -management per distribution lineman Ischemic Cardiomyopathy - Hx of Systolic Heart Failure with EF of 20-25 - repeat echo showing EF 20-25%, CAD - Continue Statin, - Imdur, b-harry ,ASA held DM - insulin infusion Hx of HTN -patient acutely hypotensive on pressors - Norvasc, Imdur, hydralazine and carvedilol discontinued Hypothyroid - Continue Synthroid Gout - allopurinol held Resident Tracking Resident Involvement: Resident Care Provided Care Provided: Adult Hospital Medicine Reviewed: Pt Seen/Exam by Me History stays intubated. pressors being weaned. opens eyes with verbal stimuli Constitutional: denies: fever General Appearance: other (intubated) Respiratory: lungs clear, other (on vent. Dialysis line on right side of chest) Cardiovascular: regular rate, rhythm Extremities: other (pain and swelling R proximal UE - chronic LE stasis / hyperpigmantation - pulses not detectable - adequate capillary return - L anticubital area with bruising and raw-appearing incision due to recent dialysis fistula) Neurologic/Psychiatric: other (opens eyes to verbal stimuli) Skin Characteristics: warm/dry Assessment/Plan I have reviewed the medical record and performed a history and physical examination of this patient today. I have discussed the case with Dr. Sandy. The above note reflects my findings, conclusions, and recommendations.
[2016-05-07 18:24] LABS: PARTIAL THROMBOPLASTIN RATIO 3.9
[2016-05-07] MEDS: DOCUSATE SODIUM 100 MG/10 ML UDC PO SCH (22:36)
[2016-05-07] MEDS: TRAVOPROST Z 0.004% OPH SOLN 2.5 ML BTL OP SCH (22:37)
[2016-05-08] VITALS (54 sets, daily range): BP systolic 90–146; BP diastolic 38–57; PULSE 54–71; TEMP 36.4–37; O2SAT 100
[2016-05-08 02:54] LABS: PARTIAL THROMBOPLASTIN RATIO 2.5
[2016-05-08] MEDS: PIPERACILL/TAZOBAC IV 3.375 GM in DEXTROSE 5% 50ML 50 ML IV SCH ×2 (04:32→13:44)
[2016-05-08 05:39] LABS: INR 1.4 (0.9-1.1); PROTHROMBIN TIME (PATIENT) 15.2 SECONDS (9.0-12.0)
[2016-05-08 05:46] LABS: BASO % 0.2 %; BASO ABS # 0.02 K/uL (0-0.2); COMPLETE YES; EOS % 1.1 %; HEMATOCRIT 25.1 % (42-52); IG% 0.4 %; LYMPH % 12.4 %; LYMPH ABS # 1.23 K/uL (1.2-3.4); MEAN CELL VOLUME 93.7 fL (80-100); MEAN CORPUSCULAR HEMOGLOBIN 34.3 pg (25-34); MEAN CORPUSCULAR HGB CONC 36.7 g/dl (32-36); MEAN PLATELET VOLUME 9.5 fL (7.4-10.4); MONO % 8.8 %; NEUT % 77.1 %; PLATELET COUNT 111 K/uL (130-400); RED BLOOD COUNT 2.68 M/uL (4.7-6.1); WHITE BLOOD COUNT 9.93 K/uL (4.8-10.8)
[2016-05-08 05:51] LABS: BUN/CREATININE RATIO 6.8 (10-20); CALCIUM 7.4 mg/dl (8.5-10.1); CREATININE 3.4 mg/dl (0.60-1.40); POTASSIUM 3.3 mmol/L (3.5-5.1)
[2016-05-08] MEDS: INSULIN ASPART 100 UNITS/ML 3 ML PEN SC SCH ×4 (06:00→18:00)
[2016-05-08] MEDS: LEVOTHYROXINE 150 MCG TAB PO SCH (06:01)
[2016-05-08] MEDS ORDERED: BISACODYL 10 MG SUPP PR STA (09:08)
[2016-05-08] MEDS ORDERED: POTASSIUM CHLORIDE IV SCH (09:30)
[2016-05-08] MEDS ORDERED: SODIUM CHLORIDE 0.9% IV SCH (09:30)
--- NOTE | 2016-05-08 10:07 | NEPHROLOGY PROGRESS NOTE ---
DATE: 05/08/2016 DATE: 05/08/2016. SUBJECTIVE: Mr. Morrow appears to be doing a bit better. He is awake. Pressors are gradually being tapered. He still remains on a small amount of Levophed. He is gradually being weaned from the respirator. He is currently on CPAP and maintaining his oxygenation. His vital signs have remained stable. Currently he denies having any pain. He denies feeling short of breath but seems to be uncomfortable with the endotracheal tube in place. It has been noted that there is a significant residual regarding his NG feedings. OBJECTIVE: GENERAL: On physical exam, Mr. Morrow certainly appears to be awake and responsive. He does answer questions by shaking or nodding his head. CURRENT VITAL SIGNS: Show a cuff blood pressure of 111/41 with a pulse of 62 and basically regular (paced rhythm on monitor), his respiratory rate is 18 on CPAP with an FIO2 of 30, his pulse ox is 100%. He is afebrile (36.9). SKIN: Shows normal skin turgor. There is no obvious rash or infiltrative skin disease. He has scars from prior surgical procedures including the scar in the right groin area from his hip replacement. He has a scar from the placement of his pacemaker as well. He has ecchymoses in the right upper arm and left antecubital fossa extending to the upper and lower arms. 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 He has dystrophic toenails. LYMPHATICS: Show no palpable lymphadenopathy. HEAD: Grossly normal. EYES: Grossly normal. The ocular fundi were not examined. Pupils appear to be somewhat constricted but equal. EARS, NOSE, MOUTH AND THROAT: Unremarkable. An endotracheal tube is in place as is a nasogastric tube. NECK: Supple. He has jugular venous distention at about 30-45 degrees, about 2-3 cm above the clavicle. CHEST: He has an IJ dialysis catheter on the right side. The pacemaker is in the left side as well as a left central venous line. His chest shows slightly diminished breath sounds but is otherwise clear to auscultation. CARDIAC: Exam shows a regular rhythm. He has a soft systolic murmur at the base radiating toward the neck. He also has a systolic murmur at the apex radiating toward the axilla. ABDOMEN: Minimally tender. Bowel sounds are present. He has the nasogastric tube in place. EXTREMITIES: Show the skin and nail changes noted above. He has swelling of both arms and hands left side still more than the right. He has the ecchymoses as previously described. He has bilateral femoral murmurs. Peripheral pulses in his feet are difficult to feel. NEUROLOGIC EXAMINATION: Shows him to move all 4 extremities. He responds to light touch in all 4 extremities as well. PERTINENT LABORATORY WORK: From today shows a [place] 9930 with a normal differential. His hemoglobin is 9.2 after 2 units of packed cells yesterday. His hematocrit is 25.1. His platelet count is 111,000. His prothrombin time is 15.2 with an INR of 1.4. Clinical chemistries from today show a sodium of 134 mmol/L, potassium 3.3 mmol/L, chloride 95 mmol/L, and CO2 content 26 mmol/L. His anion gap is 13. If one were to take into account his serum albumin it is probably in the range of 17-18. His BUN is 23, his creatinine 3.4 after yesterday's dialysis. Blood sugars vary from 107-120. His serum calcium is 7.4. A chest x-ray was not done today. ASSESSMENT: Mr. Morrow certainly appears to be doing remarkably well. He is being weaned from pressors and hopefully can be extubated today. He is awake and seemingly alert, at least he is responsive to questions. He is mildly hypokalemic. To fully interpret that one would need blood gases. I would not be overly anxious to replace him with potassium unless we knew more about his arterial blood pH. He is also having some residual from his nasogastric feedings. I suspect he has some degree of an autonomic neuropathy and might benefit from the use of Reglan approximately 5 mg every 8 hours. We will plan on his next hemodialysis treatment tomorrow.
[2016-05-08] MEDS: CHLORHEXIDINE GLUCONATE 0.12% 480 ML MT SCH ×2 (10:19→20:37)
[2016-05-08] MEDS: PANTOprazole INJ 40 MG in SYRINGE 0 ML IV SCH (10:19)
[2016-05-08] MEDS: BRIMONIDINE TARTRATE-TIMOLOL M 1 DROP BTL OP SCH ×2 (10:20→20:39)
--- NOTE | 2016-05-08 10:22 | Critical Care Progress Note ---
Critical Care Progress Note Date of Service May 08, 2016. Attending Dr. Hien Smith Mr. Morrow is an 81 yo male how presented s/p a code blue in the PACU after internal cementing of a fractured Right femoral head from a fall at which time he also fractured his right proximal humerus. This is POD # 3 and he has continued to improve without any acute events overnight. Aplhonse is on CPAP weaning trail again this morning after being rested on AC overnight. He is off sedatives and responding to questions. His tube feeds were turned back to trickle after increased residuals and are now being completely held in anticipation of extubation. He remains afebrile. Sputum culture has grown Gram Neg Bacilli. Pt tolerated dialysis last evening; removing 3.6L and received 2u PRBCs. He remained on the pressors during this and his arterial line was discontinued afterwards. Urine output has improved today with at least 75ml out this morning. Dr. Ramirez was in this morning to see him and is very pleased with his progress. He has made recommendations of HRT for tomorrow. Dr. Vaughn also saw him this morning. He approves of our continued plan and is agreeable to continuing to wean him off the pressors. Pt denies pain. Further ROS is difficult to obtain as the pt tires out and stops nodding his head. Objective Vital Signs - as noted Laboratory Data - as noted Physical Exam: General - NAD, intubated. resting comfortably, sedation off 0700, moves head, responds to a few questions before resting again Eyes - equal, small, constriction noted to light, no icterus ENT - Mucosa moist, ET tube in place Neck - Supple, trachea midline, no masses or lymphadenopathy, no JVD or bruits Lungs - No paradoxical chest wall movement, clear to auscultation bilaterally, no wheezes, rales, or rhonchi Heart - Paced on monitor, 60bpm, No murmur, rubs, clicks, or gallops appreciated Abdomen - BS present, no bruits noted, tympanic to percussion, soft, nontender, nondistended, no organomegaly Extremities - Upper extremity edema L>R, no pedal edema noted, pedal pulses intact, continued erythema of left AC with eschar in place Neuro - A&OX 0 Strength: moves all extremities Reflexes: withdrawal to plantar stimulation CN:pupil equals, no facial asymmetry Assessment & Plan (1) Altered mental status Code Blue in PACU with desaturation Neuro Consult in place: Spoke with Dr. Doll today * EEG 05/06 demonstrated no seizure activity but was abnormal secondary to asymmetric moderate background disorganization and slowing right hemisphere greater than left. * Recommends CT Head today.tomorrow; MRI unattainable due to pt cardiac implant * Agreeable with d/c of Keppra * Will need Neuro follow-up after discharge CAM Positive: assessment attempted: Pt only squeezes fingers with direction not with intent on hearing letters * Reassess this afternoon Discontinue Keppra today Fentanyl Discontinued today (2) Acute respiratory failure Code Blue in PACU s/p extubation from internal fixation of recent fractures on Remained Hypoxic for extended time, required Bronchoscopy in ICU (No Mucus plugging noted, minimal secretions) Intubated: 8.0 ET tube, 28cm @ lip, CPAP Trial 08/28 @35% Pulling Volumes >300; Saturations > 90; HCO3 WNL on PRP Continue CPAP trial now Consider Extubation this afternoon GI Prophylaxis in place: Protonix 40mg Chlorhexidine Mouth Care in place: Continue (3) End stage renal disease Dialysis on 05/07/16, 3.6L removed over 4 hours; 2u PRBCs transfused; tolerated well Recent placement of Left Upper Arm Fistula on 04/30/16: Do not use for BP check Spoke with Dr. Ashley jorge, familiar with pt * Repeat Dialysis tomorrow; 05/09/16 * UOP increasing * BUN & Cr: 23 & 3.4 (4) Anemia H&H: 9.2 & 25.1 Dilution likely plays a role (approx 5.1L positive); No overt bleeding noted 2u PRBCs transfused on 05/07/16; 1 more held in blood bank Follow Serial Labs DVT Prophylaxis: * Currently Anticoagulated on Heparin * PTT Therapeutic 65.8 * SCD's in place (5) Acute on chronic systolic (congestive) heart failure ECHO 05/06: EF 20-25%, Mild/Mod MR, Min AR, Left Vent Systolic Fxn severely reduced, Global Hypokinesis * Not significantly different from prior ECHO Discontinued Arterial line 05/07/16 consulted, spoke with him this AM * Agreeable to continue weaning Levophed; currently 0.07mcg.kg.min Other Cardiology: * Atrial Fibrillation: * Rate Controlled * Will need to convert heparin to Coumadin when possible * Heparin Infusion per protocol in place; currently therapeutic * Hypercholesterolemia * Continue Atorvastatin (6) Diabetes Non-Insulin Dependent DM pre-hospital 24hr range [id number] Tube feeds held Pharmacy Glycemic Control in place * SSI: Novolog q 6hrs BSG checks per protocol (7) Leukocytosis Afebrile, WBC 9.93; Improving Sputum Culture: Gram Neg Bacilli; sensitivity to follow Blood Cultures: No growth to date Continue Zosyn 3.375 IV q12hrs, Day 4 (8) Constipation No BM since prior to admission on 05/02 Abd w/o acute findings Vomiting today with increased residuals via NG Tube Continue Bowel Regimen * Colace Syrup 100mg PO * Miralax powder 17g PO Start Dulcolax Suppository Now (9) Hypothyroid Continue home medication * Synthroid 150mcg (10) Fall Fall 05/02/[address] Head 05/02 Negative Right Proximal Humerus Fracture * Non-operative Management * Keep immobile in sling per ortho once restraints removed Right Femoral Neck Fracture * Operative Cement Repair 05/05/16, POD 4 * Dr. Alves Continue PT/OT (11) access Central Access obtained with L IJ Catheter (05/06) Right Dialysis Catheter in place Performance Instructor Attending: I have personally interviewed and examined the patient. I was in and out of his room several times today evaluating him for possible extubation and I updated his family at length. His care was discussed on multidisciplinary rounds and I have reviewed the above documentation. I agree with the detailed assessment and plan as outlined. He is still CAM + but seems to be improving somewhat from a mental status standpoint. I am still concerned about anoxic injury but each day he seems to be a little better so far. His biggest risk is for aspiration and respiratory decline which is something I stressed with the family. Due to vomiting earlier today I am not using bipap for pulmonary expansion just yet. I think he's too weak to do incentive spirometry. Consider flutter valve. Speech eval tomorrow. Follow GNR/micro for sputum. Zosyn seems to be covering whatever it is but would like to narrow down spectrum. Please call with any questions or concerns. Critical care time 60min. Consults & Procedures Consultants: OT Ortho: Dr. Alves Cardiology: Dr. Vaughn Nephrology: Dr. Ramirez Procedures: Central Line: 05/06/16 Arterial Line : 05/05/16; D/c'd 05/07/16 Data Medications: Current Inpatient Medications Medications (Trade) Dose Ordered Sig/Summer Route Start Time Stop Time Status Last Admin Dose Admin Acetaminophen (Tylenol Tab) 650 mg Q4H PRN PO 05/03/16 03:30 06/02/16 03:29 Polyethylene (Miralax Powder Packet) 17 gm DAILY PRN PO 05/03/16 03:30 06/02/16 03:29 05/07/16 10:01 17 GM Ondansetron HCl (Zofran Inj) 4 mg Q6H PRN IV 05/03/16 03:30 06/02/16 03:29 Atorvastatin Calcium (Lipitor Tab) 80 mg QAM PO 05/03/16 09:00 06/02/16 08:59 05/07/16 10:01 80 MG Levothyroxine Sodium (Synthroid Tab) 150 mcg DAILYBB PO 05/03/16 06:00 06/02/16 05:59 05/08/16 06:01 150 MCG Travoprost (Travatan Z) 1 drops HS OP 05/03/16 21:00 06/02/16 20:59 05/07/16 22:37 1 DROPS Glucose (Glucose 40% Gel) 15-30 GRAMS 15 GRAMS... UD PRN PO 05/03/16 06:00 06/02/16 05:59 Glucose (Glucose Chew Tab) 4-8 Tablets 4 Tabl... UD PRN PO 05/03/16 06:00 06/02/16 05:59 Dextrose (Dextrose 50% 50ML Syringe) 25-50ML OF 50% DW IV FOR... UD PRN IV 05/03/16 06:00 06/02/16 05:59 Glucagon (Glucagon Inj) 1 mg UD PRN SQ 05/03/16 06:00 06/02/16 05:59 Brimonidine/ Timolol (Combigan 0.2%/ 0.5% Oph Solution) 1 drop BID OP 05/04/16 21:00 06/03/16 20:59 05/07/16 21:00 1 DROP Miscellaneous Information 1 ea 1 ea UD PRN N/A 05/05/16 16:15 06/04/16 16:14 Heparin Sodium/ Dextrose (Heparin 25,000 Unit/500ml D5W) 500 ml @ 14 mls/hr Q24H PRN IV 05/05/16 19:00 06/04/16 18:59 05/06/16 21:18 29 MLS/HR Chlorhexidine Gluconate (Peridex Oral Soln) 15 ml BID MT 05/05/16 21:00 06/04/16 20:59 05/07/16 21:00 15 ML Ioversol 111 ml 111 ml UD PRN IV 05/05/16 19:15 05/09/16 19:14 Pantoprazole Sodium/Syringe (Protonix Inj/ Syringe) 10 ml @ 5 mls/min DAILY@11 IV 05/06/16 11:00 06/05/16 10:59 05/07/16 10:02 5 MLS/MIN Piperacillin Sod/ Tazobactam Sod (Consult) 1 ea UD PRN N/A 05/05/16 20:15 06/04/16 20:14 Fentanyl Citrate 50 mcg 50 mcg Q2H PRN IV 05/06/16 07:45 05/20/16 07:44 Fentanyl Citrate (Fentanyl Drip 1250MCG/250 Nss) 250 ml @ 0 mls/hr Q0M PRN IV 05/06/16 07:45 05/20/16 07:44 05/07/16 04:38 15 MLS/HR Enteral Nutritional Formula (Impact 1.0 Jovan) 1,000 ml UD OG 05/06/16 14:15 06/05/16 14:14 Future Hold 05/06/16 20:36 1,000 ML Insulin Aspart SLIDING SCALE G... Q6 SC 05/07/16 06:45 06/06/16 06:44 Norepinephrine Bitartrate/ Dextrose (Levophed Inj/ D5W 500ml) 516 ml @ 0 mls/hr Q0M PRN IV 05/07/16 09:00 06/06/16 08:59 05/07/16 22:38 25.4 MLS/HR Polyethylene (Miralax Powder Packet) 17 gm DAILY PO 05/08/16 09:00 06/07/16 08:59 Docusate Sodium 100 mg 100 mg BID PO 05/07/16 21:00 06/06/16 20:59 1/12/17 22:36 100 MG Piperacillin Sod/ Tazobactam Sod 3.375 gm/Dextrose 65 ml @ 16.25 mls/ hr Q12H IV 05/07/16 14:00 05/13/16 13:59 05/08/16 04:32 16.25 MLS/HR Potassium Chloride 10 meq/ Sodium Chloride 55 ml @ 55 mls/hr TODAY@0930 IV 05/08/16 09:30 05/08/16 10:29 Acetaminophen/ Empty Bag (Ofirmev IV/ Empty Iv Bag 100ml) 65 ml @ 260 mls/hr Q6H PRN IV 05/08/16 09:15 06/07/16 09:14 I & O: 24-Hour Column 05/08/16 08:00 Intake Total 2950 ml Output Total 3635 ml Balance -685 ml Vital Signs: Date Time Temp Pulse Resp B/P Pulse Ox O2 Delivery O2 Flow Rate FiO2 05/08/16 08:00 Mechanical Ventilator 30 05/08/16 08:00 36.9 62 18 111/41 100 CPAP 30 Mechanical Ventilator 05/08/16 08:00 30 05/08/16 07:58 62 18 111/41 100 CPAP 30 Mechanical Ventilator 05/08/16 07:43 61 22 98/45 100 Mechanical Ventilator 30 05/08/16 07:28 68 22 118/51 100 Mechanical Ventilator 30 05/08/16 07:13 63 22 109/56 100 Mechanical Ventilator 30 05/08/16 05:58 67 22 113/42 100 05/08/16 05:43 66 22 105/48 100 05/08/16 05:28 60 19 125/47 100 05/08/16 05:00 30 05/08/16 04:59 61 19 123/51 100 05/08/16 04:33 66 15 126/46 100 05/08/16 04:00 100 Mechanical Ventilator 30 05/08/16 04:00 37.0 61 22 120/57 100 Mechanical Ventilator 30 05/08/16 04:00 30 05/08/16 02:16 30 05/08/16 02:00 61 18 120/45 100 Mechanical Ventilator 30 05/08/16 00:00 36.4 62 22 146/50 100 Mechanical Ventilator 30 05/07/16 23:59 100 Mechanical Ventilator 30 05/07/16 23:59 30 1/12/17 22:57 30 05/07/16 22:00 65 18 110/47 100 CPAP 30 Mechanical Ventilator 05/07/16 20:05 30 05/07/16 20:00 30 05/07/16 20:00 100 CPAP 30 Mechanical Ventilator 05/07/16 20:00 36.8 62 18 131/44 100 CPAP 30 Mechanical Ventilator 05/07/16 18:15 30 05/07/16 18:00 67 14 135/53 100 CPAP 30 Mechanical Ventilator 05/07/16 17:47 36.8 72 130/36 05/07/16 17:30 73 115/43 05/07/16 17:15 79 115/72 05/07/16 17:00 66 127/64 05/07/16 16:45 73 123/40 05/07/16 16:30 68 113/68 05/07/16 16:15 81 136/49 05/07/16 16:00 77 126/59 05/07/16 16:00 30 05/07/16 16:00 CPAP 30 Mechanical Ventilator 05/07/16 16:00 36.9 77 15 126/59 100 CPAP 30 Mechanical Ventilator 05/07/16 15:45 74 124/48 05/07/16 15:30 66 123/62 05/07/16 15:15 65 125/47 05/07/16 15:05 36.7 66 15 121/62 100 05/07/16 15:00 66 121/62 05/07/16 14:45 63 123/57 05/07/16 14:30 66 112/56 05/07/16 14:30 30 05/07/16 14:15 37.2 67 15 122/49 100 05/07/16 14:15 66 125/53 05/07/16 14:00 63 122/49 05/07/16 13:45 66 107/40 05/07/16 13:36 37.7 66 109/42 05/07/16 12:01 64 100 05/07/16 12:00 CPAP 30 Mechanical Ventilator 05/07/16 12:00 37.7 63 14 128/28 100 CPAP 30 110/47 Mechanical Ventilator 05/07/16 12:00 30 05/07/16 11:33 30 05/07/16 11:27 30 05/07/16 10:36 61 22 149/29 100 Mechanical Ventilator 30 117/46 Laboratory Results: Last 24 Hours Test 05/07/16 09:43 05/07/16 12:10 05/07/16 17:27 05/07/16 17:50 Hemoglobin 7.9 g/dL Hematocrit 21.8 % Bedside Glucose (other) 114 mg/dl 107 mg/dl Activated Partial Thromboplast Time 102.5 SECONDS Partial Thromboplastin Ratio 3.9 Test 05/08/16 00:44 05/08/16 02:29 05/08/16 05:05 05/08/16 06:11 Bedside Glucose (other) 119 mg/dl 120 mg/dl Activated Partial Thromboplast Time 65.8 SECONDS Partial Thromboplastin Ratio 2.5 White Blood Count 9.93 K/uL Red Blood Count 2.68 M/uL Hemoglobin 9.2 g/dL Hematocrit 25.1 % Mean Corpuscular Volume 93.7 fL Mean Corpuscular Hemoglobin 34.3 pg Mean Corpuscular Hemoglobin Concent 36.7 g/dl Platelet Count 111 K/uL Mean Platelet Volume 9.5 fL Neutrophils (%) (Auto) 77.1 % Lymphocytes (%) (Auto) 12.4 % Monocytes (%) (Auto) 8.8 % Eosinophils (%) (Auto) 1.1 % Basophils (%) (Auto) 0.2 % Neutrophils # (Auto) 7.66 K/uL Lymphocytes # (Auto) 1.23 K/uL Monocytes # (Auto) 0.87 K/uL Eosinophils # (Auto) 0.11 K/uL Basophils # (Auto) 0.02 K/uL RDW Standard Deviation 61.7 fL RDW Coefficient of Variation 18.1 % Immature Granulocyte % (Auto) 0.4 % Immature Granulocyte # (Auto) 0.04 K/uL Nucleated RBC Absolute Count (auto) 0.06 K/uL Nucleated Red Blood Cells % 0.6 % Prothrombin Time 15.2 SECONDS Prothromb Time International Ratio 1.4 Sodium Level 134 mmol/L Potassium Level 3.3 mmol/L Chloride Level 95 mmol/L Carbon Dioxide Level 26 mmol/L Anion Gap 13.0 mmol/L Blood Urea Nitrogen 23 mg/dl Creatinine 3.40 mg/dl Est Creatinine Clear Calc Drug Dose 17.5 ml/min Estimated GFR () 18.3 Estimated GFR (Non- 15.8 BUN/Creatinine Ratio 6.8 Random Glucose 120 mg/dl Calcium Level 7.4 mg/dl
[2016-05-08] MEDS: POLYETHYLENE (MIRALAX) 17 GM PACK PO SCH (10:30)
[2016-05-08] MEDS: DOCUSATE SODIUM 100 MG/10 ML UDC PO SCH ×2 (10:30→20:44)
[2016-05-08] MEDS: ATORVASTATIN 40 MG TAB PO SCH (10:30)
--- NOTE | 2016-05-08 11:26 | CARDIOLOGY PROGRESS NOTE ---
DATE: 05/08/2016 SUBJECTIVE: Mr. Morrow remains intubated in the intensive care unit. He is now off sedation and is responding appropriately to verbal commands. Tolerating weaning from the ventilator. OBJECTIVE: VITAL SIGNS: Blood pressure is 110/60 with an irregular pulse of 60. Respiratory rate is 18. The patient is afebrile at 36.9 degrees Celsius. Saturation 100% on 30% FiO2. NECK: Supple with full carotid upstrokes. Jugular venous pressure cannot be assessed. CARDIOVASCULAR: Reveals an irregular rhythm with distant heart sounds. 1/6 basal systolic ejection murmur is noted. LUNGS: Note coarse breath sounds throughout. CHEST: Reveals a palpable pacemaker in the left subclavicular region, a dialysis catheter is noted in the right subclavicular region. ABDOMEN: Soft without bruits. EXTREMITIES: Remain unchanged. DATA: CBC notes hemoglobin of 9.2, hematocrit 25.1, white count 9.9, platelet count 111,000. Electrolytes note a sodium of 134, potassium 3.4, chloride 95, bicarbonate 26, BUN 23, creatinine 3.4, glucose 120. INR is 1.4. ekg monitor tech notes atrial fibrillation and appropriate pacing. IMPRESSION AND PLAN: 1. Status post cardiac arrest - the patient continues to improve. Hopefully, he will be extubated later today. 2. Hypotension - the patient now only on low-dose norepinephrine. That can hopefully be weaned later today. 3. Ischemic cardiomyopathy -- ejection fraction less than 20%. 4. Chronic systolic congestive heart failure - volume is managed by hemodialysis. 5. Anemia -- improved status post blood transfusion yesterday during dialysis. 6. Permanent atrial fibrillation. 7. Status post single chamber ICD -- 08/2015.
--- NOTE | 2016-05-08 12:41 | Neurology Progress Notes ---
Neurology Progress Note Date of Service May 08, 2016. Subjective Patient is off sedation. Still intubated. Appears a little bit more responsive than yesterday. Objective Date Time Temp Pulse Resp B/P Pulse Ox O2 Delivery O2 Flow Rate FiO2 05/08/16 12:00 CPAP 30 Mechanical Ventilator 05/08/16 12:00 30 05/08/16 11:10 30 05/08/16 10:28 60 14 106/47 100 CPAP 30 Mechanical Ventilator 05/08/16 10:14 63 18 116/48 100 CPAP 30 Mechanical Ventilator 05/08/16 09:59 71 16 121/53 100 CPAP 30 Mechanical Ventilator 05/08/16 09:43 66 12 108/44 100 CPAP 30 Mechanical Ventilator 05/08/16 09:28 64 16 116/51 100 CPAP 30 Mechanical Ventilator 05/08/16 09:14 64 19 111/40 100 CPAP 30 Mechanical Ventilator 05/08/16 08:58 67 19 118/46 100 CPAP 30 Mechanical Ventilator 05/08/16 08:43 60 15 106/45 100 CPAP 30 Mechanical Ventilator 05/08/16 08:29 70 18 105/38 100 CPAP 30 Mechanical Ventilator 05/08/16 08:00 Mechanical Ventilator 30 05/08/16 08:00 36.9 62 18 111/41 100 CPAP 30 Mechanical Ventilator 05/08/16 08:00 30 05/08/16 07:58 62 18 111/41 100 CPAP 30 Mechanical Ventilator 05/08/16 07:43 61 22 98/45 100 Mechanical Ventilator 30 05/08/16 07:35 30 05/08/16 07:28 68 22 118/51 100 Mechanical Ventilator 30 05/08/16 07:13 63 22 109/56 100 Mechanical Ventilator 30 05/08/16 05:58 67 22 113/42 100 05/08/16 05:43 66 22 105/48 100 05/08/16 05:28 60 19 125/47 100 05/08/16 05:00 30 05/08/16 04:59 61 19 123/51 100 05/08/16 04:33 66 15 126/46 100 05/08/16 04:00 100 Mechanical Ventilator 30 05/08/16 04:00 37.0 61 22 120/57 100 Mechanical Ventilator 30 05/08/16 04:00 30 05/08/16 02:16 30 05/08/16 02:00 61 18 120/45 100 Mechanical Ventilator 30 05/08/16 00:00 36.4 62 22 146/50 100 Mechanical Ventilator 30 05/07/16 23:59 100 Mechanical Ventilator 30 05/07/16 23:59 30 05/07/16 22:57 30 05/07/16 22:00 65 18 110/47 100 CPAP 30 Mechanical Ventilator 05/07/16 20:05 30 05/07/16 20:00 30 05/07/16 20:00 100 CPAP 30 Mechanical Ventilator 05/07/16 20:00 36.8 62 18 131/44 100 CPAP 30 Mechanical Ventilator 05/07/16 18:15 30 05/07/16 18:00 67 14 135/53 100 CPAP 30 Mechanical Ventilator 05/07/16 17:47 36.8 72 130/36 05/07/16 17:30 73 115/43 05/07/16 17:15 79 115/72 05/07/16 17:00 66 127/64 05/07/16 16:45 73 123/40 05/07/16 16:30 68 113/68 05/07/16 16:15 81 136/49 05/07/16 16:00 77 126/59 05/07/16 16:00 30 05/07/16 16:00 CPAP 30 Mechanical Ventilator 05/07/16 16:00 36.9 77 15 126/59 100 CPAP 30 Mechanical Ventilator 05/07/16 15:45 74 124/48 05/07/16 15:30 66 123/62 05/07/16 15:15 65 125/47 05/07/16 15:05 36.7 66 15 121/62 100 05/07/16 15:00 66 121/62 05/07/16 14:45 63 123/57 05/07/16 14:30 66 112/56 05/07/16 14:30 30 05/07/16 14:15 37.2 67 15 122/49 100 05/07/16 14:15 66 125/53 05/07/16 14:00 63 122/49 05/07/16 13:45 66 107/40 05/07/16 13:36 37.7 66 109/42 Last 24 Hours Test 05/07/16 17:27 05/07/16 17:50 05/08/16 00:44 05/08/16 02:29 Bedside Glucose (other) 107 mg/dl 119 mg/dl Activated Partial Thromboplast Time 102.5 SECONDS 65.8 SECONDS Partial Thromboplastin Ratio 3.9 2.5 Test 05/08/16 05:05 05/08/16 06:11 05/08/16 11:15 White Blood Count 9.93 K/uL Red Blood Count 2.68 M/uL Hemoglobin 9.2 g/dL Hematocrit 25.1 % Mean Corpuscular Volume 93.7 fL Mean Corpuscular Hemoglobin 34.3 pg Mean Corpuscular Hemoglobin Concent 36.7 g/dl Platelet Count 111 K/uL Mean Platelet Volume 9.5 fL Neutrophils (%) (Auto) 77.1 % Lymphocytes (%) (Auto) 12.4 % Monocytes (%) (Auto) 8.8 % Eosinophils (%) (Auto) 1.1 % Basophils (%) (Auto) 0.2 % Neutrophils # (Auto) 7.66 K/uL Lymphocytes # (Auto) 1.23 K/uL Monocytes # (Auto) 0.87 K/uL Eosinophils # (Auto) 0.11 K/uL Basophils # (Auto) 0.02 K/uL RDW Standard Deviation 61.7 fL RDW Coefficient of Variation 18.1 % Immature Granulocyte % (Auto) 0.4 % Immature Granulocyte # (Auto) 0.04 K/uL Nucleated RBC Absolute Count (auto) 0.06 K/uL Nucleated Red Blood Cells % 0.6 % Prothrombin Time 15.2 SECONDS Prothromb Time International Ratio 1.4 Sodium Level 134 mmol/L Potassium Level 3.3 mmol/L Chloride Level 95 mmol/L Carbon Dioxide Level 26 mmol/L Anion Gap 13.0 mmol/L Blood Urea Nitrogen 23 mg/dl Creatinine 3.40 mg/dl Est Creatinine Clear Calc Drug Dose 17.5 ml/min Estimated GFR () 18.3 Estimated GFR (Non- 15.8 BUN/Creatinine Ratio 6.8 Random Glucose 120 mg/dl Calcium Level 7.4 mg/dl Bedside Glucose (other) 120 mg/dl Exam: Gen.: Patient opens eyes to voice. Follows a few commands correctly such as lifting up his thumb. Patient appears to be able to look in all directions. Pupils equally round and reactive to light. Patient's squeeze hands equally and moved toes equally. Current Inpatient Medications Medications (Trade) Dose Ordered Sig/Summer Route Start Time Stop Time Status Last Admin Dose Admin Acetaminophen (Tylenol Tab) 650 mg Q4H PRN PO 05/03/16 03:30 06/02/16 03:29 Polyethylene (Miralax Powder Packet) 17 gm DAILY PRN PO 05/03/16 03:30 06/02/16 03:29 05/07/16 10:01 17 GM Ondansetron HCl (Zofran Inj) 4 mg Q6H PRN IV 05/03/16 03:30 06/02/16 03:29 05/08/16 10:19 4 MG Atorvastatin Calcium (Lipitor Tab) 80 mg QAM PO 05/03/16 09:00 06/02/16 08:59 05/07/16 10:01 80 MG Levothyroxine Sodium (Synthroid Tab) 150 mcg DAILYBB PO 05/03/16 06:00 06/02/16 05:59 05/08/16 06:01 150 MCG Travoprost (Travatan Z) 1 drops HS OP 05/03/16 21:00 06/02/16 20:59 05/07/16 22:37 1 DROPS Glucose (Glucose 40% Gel) 15-30 GRAMS 15 GRAMS... UD PRN PO 05/03/16 06:00 06/02/16 05:59 Glucose (Glucose Chew Tab) 4-8 Tablets 4 Tabl... UD PRN PO 05/03/16 06:00 06/02/16 05:59 Dextrose (Dextrose 50% 50ML Syringe) 25-50ML OF 50% DW IV FOR... UD PRN IV 05/03/16 06:00 06/02/16 05:59 Glucagon (Glucagon Inj) 1 mg UD PRN SQ 05/03/16 06:00 06/02/16 05:59 Brimonidine/ Timolol (Combigan 0.2%/ 0.5% Oph Solution) 1 drop BID OP 05/04/16 21:00 06/03/16 20:59 05/08/16 10:20 1 DROP Miscellaneous Information 1 ea 1 ea UD PRN N/A 05/05/16 16:15 06/04/16 16:14 Heparin Sodium/ Dextrose (Heparin 25,000 Unit/500ml D5W) 500 ml @ 14 mls/hr Q24H PRN IV 05/05/16 19:00 06/04/16 18:59 05/06/16 21:18 29 MLS/HR Chlorhexidine Gluconate (Peridex Oral Soln) 15 ml BID MT 05/05/16 21:00 06/04/16 20:59 05/08/16 10:19 15 ML Ioversol 111 ml 111 ml UD PRN IV 05/05/16 19:15 05/09/16 19:14 Pantoprazole Sodium/Syringe (Protonix Inj/ Syringe) 10 ml @ 5 mls/min DAILY@11 IV 05/06/16 11:00 06/05/16 10:59 05/08/16 10:19 5 MLS/MIN Piperacillin Sod/ Tazobactam Sod (Consult) 1 ea UD PRN N/A 05/05/16 20:15 06/04/16 20:14 Fentanyl Citrate 50 mcg 50 mcg Q2H PRN IV 05/06/16 07:45 05/20/16 07:44 Fentanyl Citrate (Fentanyl Drip 1250MCG/250 Nss) 250 ml @ 0 mls/hr Q0M PRN IV 05/06/16 07:45 05/20/16 07:44 05/07/16 04:38 15 MLS/HR Enteral Nutritional Formula (Impact 1.0 Jovan) 1,000 ml UD OG 05/06/16 14:15 06/05/16 14:14 Future Hold 05/06/16 20:36 1,000 ML Insulin Aspart SLIDING SCALE G... Q6 SC 05/07/16 06:45 06/06/16 06:44 Norepinephrine Bitartrate/ Dextrose (Levophed Inj/ D5W 500ml) 516 ml @ 0 mls/hr Q0M PRN IV 05/07/16 09:00 06/06/16 08:59 05/07/16 22:38 25.4 MLS/HR Polyethylene (Miralax Powder Packet) 17 gm DAILY PO 05/08/16 09:00 06/07/16 08:59 Docusate Sodium 100 mg 100 mg BID PO 05/07/16 21:00 06/06/16 20:59 05/07/16 22:36 100 MG Piperacillin Sod/ Tazobactam Sod 3.375 gm/Dextrose 65 ml @ 16.25 mls/ hr Q12H IV 05/07/16 14:00 05/13/16 13:59 05/08/16 04:32 16.25 MLS/HR Acetaminophen/ Empty Bag (Ofirmev IV/ Empty Iv Bag 100ml) 65 ml @ 260 mls/hr Q6H PRN IV 05/08/16 09:15 06/07/16 09:14 Heparin Sodium (Porcine) (Heparin Iv Bolus) 2,000 unit TODAY@0930 IV 05/09/16 09:30 05/09/16 18:00 Heparin Sodium (Porcine) (Heparin Iv Bolus) 500 unit TODAY@0930,1030,1130 IV 05/09/16 09:30 05/09/16 18:00 Epoetin Johnny 12440 units 10,000 units TODAY@0930 IV. 05/09/16 09:30 05/09/16 18:00 Sodium Chloride (Nss 1000ml) 1,000 ml @ 0 mls/hr Q0M PRN IV 05/09/16 06:00 05/09/16 18:00 Impression 81-year-old male with acute encephalopathy after 2 in-hospital cardiac arrest concerning for anoxic brain injury. No clear seizure activity Plan Okay to stop Keppra at this point Recommend repeating CT of the head to see if there is any imaged ischemic damage. Unable to get MRI due to cardiac defibrillator Avoid hypotension and dehydration PT/OT and speech evaluation Overall could take time to see if the patient has any significant neurological deficits. Could consider following up in the neurology clinic a month after hospital discharge for more comprehensive neurological assessment and examination. Thank you for allowing me to participate in this patient's care. If there is any concerns or questions, feel free to call/page me.
--- NOTE | 2016-05-08 12:50 | Pharmacy Progress Note ---
Glycemic Control: Progress Nt Date of Service May 08, 2016. Scope Glycemic Pharmacist consulted by Dr Alves on 05/05/16 for glycemic control and to write orders per [facility] inpatient glycemic control protocol. Objective Accuchecks BSG (last 24hrs): Test 05/08/16 05:05 Random Glucose 120 mg/dl (70-99) Laboratory Data (last 24hrs) Test 05/08/16 05:05 05/08/16 11:15 Anion Gap 13.0 mmol/L BUN/Creatinine Ratio 6.8 Blood Urea Nitrogen 23 mg/dl Creatinine 3.40 mg/dl Potassium Level 3.3 mmol/L Sodium Level 134 mmol/L White Blood Count 9.93 K/uL Red Blood Count 2.68 M/uL Hemoglobin 9.2 g/dL Hematocrit 25.1 % Mean Corpuscular Volume 93.7 fL Mean Corpuscular Hemoglobin 34.3 pg Mean Corpuscular Hemoglobin Concent 36.7 g/dl Platelet Count 111 K/uL Mean Platelet Volume 9.5 fL Neutrophils (%) (Auto) 77.1 % Lymphocytes (%) (Auto) 12.4 % Monocytes (%) (Auto) 8.8 % Eosinophils (%) (Auto) 1.1 % Basophils (%) (Auto) 0.2 % Neutrophils # (Auto) 7.66 K/uL Lymphocytes # (Auto) 1.23 K/uL Monocytes # (Auto) 0.87 K/uL Eosinophils # (Auto) 0.11 K/uL Basophils # (Auto) 0.02 K/uL Recent Pertinent Medications Outpatient Anti-diabetic Regimen: * glipizide ER 5mg PO daily * NovoLog sliding scale * Lantus 12 units SQ q AM The patient is currently receiving: * Basal insulin: Lantus 5 units SQ x1 on 05/07/16 * Correctional Insulin: NovoLog Correction per scale AC/HS or q6 hours if NPO Goal Range: Low 140 mg/dL - High 180 mg/dL Correction Factor: 50 mg/dL/unit * Prandial insulin: Per carb ratio of 1 unit per -- grams CHO consumed Risk Factors for Insulin Resistance: * Infection: piperacillin/tazobactam IV day #4 * Pressors: norepinephrine * IVF: fentanyl infusion, heparin infusion * Recent Surgery: POD #3 * Diet: NPO, Impact tube feeds(currently on hold) Assessment & Plan ASSESSMENT: * ADA & AACE recommend a goal blood sugar range 140-180 mg/dl for the majority of critically ill & non-critically ill patients. However, more stringent targets may be selected in individual cases. 05/05/16 * Consult received postoperatively today - after review of the patient's BSG trends, it appears that Mr Morrow has been having BSGs below goal range. * Hold basal insulin at this time (last dose administered on 05/03/16) * "Loosen" NovoLog goal range to be in accordance with ADA recommendations and continue to forgo carbohydrate coverage. * The patient has PMHx significant for ESRD with HD - this will likely make the A1c difficult to interpret * Insulin regimen based on POC BSG values instead of A1c * Around 1730 the patient was a code blue; fentanyl gtt and epi gtt ordered. * Increased physiological stress may cause BSGs to trend upwards - monitor with Accu-checks and re-assess in AM * If BSGs trend upwards, may consider insulin infusion as the standard of care in ICU 05/06/16 * Pt remains ventilated and blood sugars have risen to the 200's * Based on acute stressors and risk of hypoglycemia, begin insulin infusion per MD * Insulin infusion not started initially this AM because of limited line access * Central line has been place and POC BSG 211 mg/dL * Plan is for insulin infusion X 24 hours and reassess in the AM 05/08/16 * The insulin infusion was stopped in the early hours of 05/07/16. Since that time, the patient has required minimal insulin subcutaneously. * Currently, basal insulin not needed as Mr. Morrow is NPO and tube feeds are on hold. His "fasting' blood glucose this AM was 120mg/dL * NovoLog every 6 hours (or AC/HS if/when diet is ordered) is adequately controlling any blood glucose outliers. * no change to NovoLog parameters at this time. PLAN FOR INPATIENT GLYCEMIC CONTROL: * Holding Lantus at this time * Continue NovoLog AC and HS or q6H if NPO * Correction factor: 50mg/dL/unit * Carb ratio: forgo at this time * Goal range: 140-180mg/dL * Please note that the plan above was derived based on current level of insulin resistance and hospital stress. These recommendations are appropriate for inpatient admission only. Plan of care upon discharge will need to be reassessed to avoid potential outpatient hypo/hyperglycemia. Thank you.
[2016-05-08] MEDS ORDERED: BISACODYL 10 MG SUPP ONE (13:41)
[2016-05-08] MEDS: ACETAMINOPHEN IV 650 MG in EMPTY BAG 0 ML IV PRN (13:43)
--- NOTE | 2016-05-08 14:35 | Orthopedic Progress Note ---
Orthopedic Progress Note Date of Service May 08, 2016. Subjective Post OP Day: 3 Additional Notes: Extubated able to answer questions denies pain Objective calves soft nontender, N/V intact, dressing C/D/I, toes mobile cannot access leg lenghts but believe hip is fine Date Time Temp Pulse Resp B/P Pulse Ox O2 Delivery O2 Flow Rate FiO2 05/08/16 12:28 59 14 106/43 100 Nasal Cannula 2.0 05/08/16 12:13 36.9 60 18 105/38 100 CPAP 30 Mechanical Ventilator 05/08/16 12:00 CPAP 30 Mechanical Ventilator 05/08/16 12:00 30 05/08/16 11:58 61 16 108/52 100 CPAP 30 Mechanical Ventilator 05/08/16 11:43 60 15 109/53 100 CPAP 30 Mechanical Ventilator 05/08/16 11:29 54 12 100/51 100 CPAP 30 Mechanical Ventilator 05/08/16 11:13 60 16 103/45 100 CPAP 30 Mechanical Ventilator 05/08/16 11:10 30 05/08/16 10:28 60 14 106/47 100 CPAP 30 Mechanical Ventilator 05/08/16 10:14 63 18 116/48 100 CPAP 30 Mechanical Ventilator 05/08/16 09:59 71 16 121/53 100 CPAP 30 Mechanical Ventilator 05/08/16 09:43 66 12 108/44 100 CPAP 30 Mechanical Ventilator 05/08/16 09:28 64 16 116/51 100 CPAP 30 Mechanical Ventilator 05/08/16 09:14 64 19 111/40 100 CPAP 30 Mechanical Ventilator 05/08/16 08:58 67 19 118/46 100 CPAP 30 Mechanical Ventilator 05/08/16 08:43 60 15 106/45 100 CPAP 30 Mechanical Ventilator 05/08/16 08:29 70 18 105/38 100 CPAP 30 Mechanical Ventilator 05/08/16 08:00 Mechanical Ventilator 30 05/08/16 08:00 CPAP 35 05/08/16 08:00 36.9 62 18 111/41 100 CPAP 30 Mechanical Ventilator 05/08/16 08:00 30 05/08/16 07:58 62 18 111/41 100 CPAP 30 Mechanical Ventilator 05/08/16 07:43 61 22 98/45 100 Mechanical Ventilator 30 05/08/16 07:35 30 05/08/16 07:28 68 22 118/51 100 Mechanical Ventilator 30 05/08/16 07:13 63 22 109/56 100 Mechanical Ventilator 30 05/08/16 05:58 67 22 113/42 100 05/08/16 05:43 66 22 105/48 100 05/08/16 05:28 60 19 125/47 100 05/08/16 05:00 30 05/08/16 04:59 61 19 123/51 100 05/08/16 04:33 66 15 126/46 100 05/08/16 04:00 100 Mechanical Ventilator 30 05/08/16 04:00 37.0 61 22 120/57 100 Mechanical Ventilator 30 05/08/16 04:00 30 05/08/16 02:16 30 05/08/16 02:00 61 18 120/45 100 Mechanical Ventilator 30 05/08/16 00:00 36.4 62 22 146/50 100 Mechanical Ventilator 30 05/07/16 23:59 100 Mechanical Ventilator 30 05/07/16 23:59 30 05/07/16 22:57 30 05/07/16 22:00 65 18 110/47 100 CPAP 30 Mechanical Ventilator 05/07/16 20:05 30 05/07/16 20:00 30 05/07/16 20:00 100 CPAP 30 Mechanical Ventilator 05/07/16 20:00 36.8 62 18 131/44 100 CPAP 30 Mechanical Ventilator 05/07/16 18:15 30 05/07/16 18:00 67 14 135/53 100 CPAP 30 Mechanical Ventilator 05/07/16 17:47 36.8 72 130/36 05/07/16 17:30 73 115/43 05/07/16 17:15 79 115/72 05/07/16 17:00 66 127/64 05/07/16 16:45 73 123/40 05/07/16 16:30 68 113/68 05/07/16 16:15 81 136/49 05/07/16 16:00 77 126/59 05/07/16 16:00 30 05/07/16 16:00 CPAP 30 Mechanical Ventilator 05/07/16 16:00 36.9 77 15 126/59 100 CPAP 30 Mechanical Ventilator 05/07/16 15:45 74 124/48 05/07/16 15:30 66 123/62 05/07/16 15:15 65 125/47 05/07/16 15:05 36.7 66 15 121/62 100 05/07/16 15:00 66 121/62 05/07/16 14:45 63 123/57 05/07/16 14:30 66 112/56 05/07/16 14:30 30 Laboratory Results 24 Hours: Test 05/08/16 05:05 White Blood Count 9.93 K/uL Red Blood Count 2.68 M/uL Hemoglobin 9.2 g/dL Hematocrit 25.1 % Mean Corpuscular Volume 93.7 fL Mean Corpuscular Hemoglobin 34.3 pg Mean Corpuscular Hemoglobin Concent 36.7 g/dl Platelet Count 111 K/uL Mean Platelet Volume 9.5 fL Neutrophils (%) (Auto) 77.1 % Lymphocytes (%) (Auto) 12.4 % Monocytes (%) (Auto) 8.8 % Eosinophils (%) (Auto) 1.1 % Basophils (%) (Auto) 0.2 % Neutrophils # (Auto) 7.66 K/uL Lymphocytes # (Auto) 1.23 K/uL Monocytes # (Auto) 0.87 K/uL Eosinophils # (Auto) 0.11 K/uL Basophils # (Auto) 0.02 K/uL Prothromb Time International Ratio 1.4 Prothrombin Time 15.2 SECONDS Assessment & Plan Assessment: RIGHT HIP FRACTURE POD 23HEMIARTHROPLASTY HYPOXIA HYPOTENSION EXTUBATED Plan: HIP STABLE Change dressing today. OK TO POSITION NEEDED NO NEED FOR SLING UNTIL HE IS OOB (1) Altered mental status Chronic (2) Acute respiratory failure Acute (3) End stage renal disease Chronic (4) Anemia Acute (5) Acute on chronic systolic (congestive) heart failure (6) Diabetes Chronic (7) Leukocytosis (8) Constipation (9) Hypothyroid (10) Fall Acute (11) access Inhouse Planning Pain Management: Percocet, Morphine DVT Prophylaxis: TEDs, SCDs, Heparin Drip
--- NOTE | 2016-05-08 16:42 | Family Medicine Progress Note ---
Progress Note Date of Service May 08, 2016. Subjective Pt evaluation today including: conversation w/ patient, conversation w/ family , physical exam, chart review, lab review, review of studies, conversation w/ coding consultant Pain: denies pain Pt significantly more responsive. He is intubated, but awakens to stimuli, responds by shaking head yes or no to questions. follows commands. pt has had notable nausea/vomiting . i Additional Comments: could not assess review of systems. patient is intubated Medications Current Inpatient Medications Medications (Trade) Dose Ordered Sig/Summer Route Start Time Stop Time Status Last Admin Dose Admin Acetaminophen (Tylenol Tab) 650 mg Q4H PRN PO 05/03/16 03:30 06/02/16 03:29 Polyethylene (Miralax Powder Packet) 17 gm DAILY PRN PO 05/03/16 03:30 06/02/16 03:29 05/07/16 10:01 17 GM Ondansetron HCl (Zofran Inj) 4 mg Q6H PRN IV 05/03/16 03:30 06/02/16 03:29 05/08/16 10:19 4 MG Atorvastatin Calcium (Lipitor Tab) 80 mg QAM PO 05/03/16 09:00 06/02/16 08:59 05/07/16 10:01 80 MG Levothyroxine Sodium (Synthroid Tab) 150 mcg DAILYBB PO 05/03/16 06:00 06/02/16 05:59 05/08/16 06:01 150 MCG Travoprost (Travatan Z) 1 drops HS OP 05/03/16 21:00 06/02/16 20:59 05/07/16 22:37 1 DROPS Glucose (Glucose 40% Gel) 15-30 GRAMS 15 GRAMS... UD PRN PO 05/03/16 06:00 06/02/16 05:59 Glucose (Glucose Chew Tab) 4-8 Tablets 4 Tabl... UD PRN PO 05/03/16 06:00 06/02/16 05:59 Dextrose (Dextrose 50% 50ML Syringe) 25-50ML OF 50% DW IV FOR... UD PRN IV 05/03/16 06:00 06/02/16 05:59 Glucagon (Glucagon Inj) 1 mg UD PRN SQ 05/03/16 06:00 06/02/16 05:59 Brimonidine/ Timolol (Combigan 0.2%/ 0.5% Oph Solution) 1 drop BID OP 05/04/16 21:00 06/03/16 20:59 05/08/16 10:20 1 DROP Miscellaneous Information 1 ea 1 ea UD PRN N/A 05/05/16 16:15 06/04/16 16:14 Heparin Sodium/ Dextrose (Heparin 25,000 Unit/500ml D5W) 500 ml @ 14 mls/hr Q24H PRN IV 05/05/16 19:00 06/04/16 18:59 05/06/16 21:18 29 MLS/HR Chlorhexidine Gluconate (Peridex Oral Soln) 15 ml BID MT 05/05/16 21:00 06/04/16 20:59 05/08/16 10:19 15 ML Ioversol 111 ml 111 ml UD PRN IV 05/05/16 19:15 05/09/16 19:14 Pantoprazole Sodium/Syringe (Protonix Inj/ Syringe) 10 ml @ 5 mls/min DAILY@11 IV 05/06/16 11:00 06/05/16 10:59 05/08/16 10:19 5 MLS/MIN Piperacillin Sod/ Tazobactam Sod (Consult) 1 ea UD PRN N/A 05/05/16 20:15 06/04/16 20:14 Fentanyl Citrate 50 mcg 50 mcg Q2H PRN IV 05/06/16 07:45 05/20/16 07:44 Fentanyl Citrate (Fentanyl Drip 1250MCG/250 Nss) 250 ml @ 0 mls/hr Q0M PRN IV 05/06/16 07:45 05/20/16 07:44 05/07/16 04:38 15 MLS/HR Enteral Nutritional Formula (Impact 1.0 Jovan) 1,000 ml UD OG 05/06/16 14:15 06/05/16 14:14 Future Hold 05/06/16 20:36 1,000 ML Insulin Aspart SLIDING SCALE G... Q6 SC 05/07/16 06:45 06/06/16 06:44 Norepinephrine Bitartrate/ Dextrose (Levophed Inj/ D5W 500ml) 516 ml @ 0 mls/hr Q0M PRN IV 05/07/16 09:00 06/06/16 08:59 05/07/16 22:38 25.4 MLS/HR Polyethylene (Miralax Powder Packet) 17 gm DAILY PO 05/08/16 09:00 06/07/16 08:59 Docusate Sodium 100 mg 100 mg BID PO 05/07/16 21:00 06/06/16 20:59 05/07/16 22:36 100 MG Piperacillin Sod/ Tazobactam Sod 3.375 gm/Dextrose 65 ml @ 16.25 mls/ hr Q12H IV 05/07/16 14:00 05/13/16 13:59 05/08/16 13:44 16.25 MLS/HR Acetaminophen/ Empty Bag (Ofirmev IV/ Empty Iv Bag 100ml) 65 ml @ 260 mls/hr Q6H PRN IV 05/08/16 09:15 06/07/16 09:14 05/08/16 13:43 260 MLS/HR Heparin Sodium (Porcine) (Heparin Iv Bolus) 2,000 unit TODAY@0930 IV 05/09/16 09:30 05/09/16 18:00 Heparin Sodium (Porcine) (Heparin Iv Bolus) 500 unit TODAY@0930,1030,1130 IV 05/09/16 09:30 05/09/16 18:00 Epoetin Johnny 84559 units 10,000 units TODAY@0930 IV. 05/09/16 09:30 05/09/16 18:00 Sodium Chloride (Nss 1000ml) 1,000 ml @ 0 mls/hr Q0M PRN IV 05/09/16 06:00 05/09/16 18:00 Objective Vital Signs Date Time Temp Pulse Resp B/P Pulse Ox O2 Delivery O2 Flow Rate FiO2 05/08/16 14:59 60 16 103/40 100 Nasal Cannula 2.0 05/08/16 14:44 60 18 90/39 100 Nasal Cannula 2.0 05/08/16 14:28 59 18 101/41 100 Nasal Cannula 2.0 05/08/16 14:13 59 15 101/40 100 Nasal Cannula 2.0 05/08/16 13:58 59 14 100/39 100 Nasal Cannula 2.0 05/08/16 13:44 60 16 117/39 100 Nasal Cannula 2.0 05/08/16 13:28 59 16 102/41 100 Nasal Cannula 2.0 05/08/16 13:14 60 15 100/39 100 Nasal Cannula 2.0 05/08/16 12:28 59 14 106/43 100 Nasal Cannula 2.0 05/08/16 12:13 36.9 60 18 105/38 100 CPAP 30 Mechanical Ventilator 05/08/16 12:00 CPAP 30 Mechanical Ventilator 05/08/16 12:00 30 05/08/16 11:58 61 16 108/52 100 CPAP 30 Mechanical Ventilator 05/08/16 11:43 60 15 109/53 100 CPAP 30 Mechanical Ventilator 05/08/16 11:29 54 12 100/51 100 CPAP 30 Mechanical Ventilator 05/08/16 11:13 60 16 103/45 100 CPAP 30 Mechanical Ventilator 05/08/16 11:10 30 05/08/16 10:28 60 14 106/47 100 CPAP 30 Mechanical Ventilator 05/08/16 10:14 63 18 116/48 100 CPAP 30 Mechanical Ventilator 05/08/16 09:59 71 16 121/53 100 CPAP 30 Mechanical Ventilator 05/08/16 09:43 66 12 108/44 100 CPAP 30 Mechanical Ventilator 05/08/16 09:28 64 16 116/51 100 CPAP 30 Mechanical Ventilator 05/08/16 09:14 64 19 111/40 100 CPAP 30 Mechanical Ventilator 05/08/16 08:58 67 19 118/46 100 CPAP 30 Mechanical Ventilator 05/08/16 08:43 60 15 106/45 100 CPAP 30 Mechanical Ventilator 05/08/16 08:29 70 18 105/38 100 CPAP 30 Mechanical Ventilator 05/08/16 08:00 Mechanical Ventilator 30 05/08/16 08:00 CPAP 35 05/08/16 08:00 36.9 62 18 111/41 100 CPAP 30 Mechanical Ventilator 05/08/16 08:00 30 05/08/16 07:58 62 18 111/41 100 CPAP 30 Mechanical Ventilator 05/08/16 07:43 61 22 98/45 100 Mechanical Ventilator 30 05/08/16 07:35 30 05/08/16 07:28 68 22 118/51 100 Mechanical Ventilator 30 05/08/16 07:13 63 22 109/56 100 Mechanical Ventilator 30 05/08/16 05:58 67 22 113/42 100 05/08/16 05:43 66 22 105/48 100 05/08/16 05:28 60 19 125/47 100 05/08/16 05:00 30 1/13/17 04:59 61 19 123/51 100 05/08/16 04:33 66 15 126/46 100 05/08/16 04:00 100 Mechanical Ventilator 30 05/08/16 04:00 37.0 61 22 120/57 100 Mechanical Ventilator 30 05/08/16 04:00 30 05/08/16 02:16 30 05/08/16 02:00 61 18 120/45 100 Mechanical Ventilator 30 05/08/16 00:00 36.4 62 22 146/50 100 Mechanical Ventilator 30 05/07/16 23:59 100 Mechanical Ventilator 30 05/07/16 23:59 30 05/07/16 22:57 30 05/07/16 22:00 65 18 110/47 100 CPAP 30 Mechanical Ventilator 05/07/16 20:05 30 05/07/16 20:00 30 05/07/16 20:00 100 CPAP 30 Mechanical Ventilator 05/07/16 20:00 36.8 62 18 131/44 100 CPAP 30 Mechanical Ventilator 05/07/16 18:15 30 05/07/16 18:00 67 14 135/53 100 CPAP 30 Mechanical Ventilator 05/07/16 17:47 36.8 72 130/36 05/07/16 17:30 73 115/43 05/07/16 17:15 79 115/72 05/07/16 17:00 66 127/64 05/07/16 16:45 73 123/40 05/07/16 16:30 68 113/68 Physical Exam General Appearance: WD/WN, no apparent distress Eyes: normal inspection, PERRL, EOMI Respiratory/Chest: lungs clear, normal breath sounds Cardiovascular: regular rate, rhythm, no murmur Abdomen: normal bowel sounds, non tender, soft Extremities: no pedal edema, no calf tenderness Neurologic/Psychiatric: alert, + pertinent finding (responds to questions, follows commands (can wiggle toes, squeezle my finger on command)) Laboratory Results Results Past 24 Hours Test 05/07/16 17:27 05/07/16 17:50 05/08/16 00:44 05/08/16 02:29 Range/Units Bedside Glucose (other) 107 119 70-99 mg/dl Activated Partial Thromboplast Time 102.5 65.8 21.0-31.0 SECONDS Partial Thromboplastin Ratio 3.9 2.5 Test 05/08/16 05:05 05/08/16 06:11 05/08/16 13:09 05/08/16 13:12 Range/Units White Blood Count 9.93 4.8-10.8 K/uL Red Blood Count 2.68 4.7-6.1 M/uL Hemoglobin 9.2 14.0-18.0 g/dL Hematocrit 25.1 42-52 % Mean Corpuscular Volume 93.7 80-100 fL Mean Corpuscular Hemoglobin 34.3 25-34 pg Mean Corpuscular Hemoglobin Concent 36.7 32-36 g/dl Platelet Count 111 130-400 K/uL Mean Platelet Volume 9.5 7.4-10.4 fL Neutrophils (%) (Auto) 77.1 % Lymphocytes (%) (Auto) 12.4 % Monocytes (%) (Auto) 8.8 % Eosinophils (%) (Auto) 1.1 % Basophils (%) (Auto) 0.2 % Neutrophils # (Auto) 7.66 1.4-6.5 K/uL Lymphocytes # (Auto) 1.23 1.2-3.4 K/uL Monocytes # (Auto) 0.87 0.11-0.59 K/uL Eosinophils # (Auto) 0.11 0-0.5 K/uL Basophils # (Auto) 0.02 0-0.2 K/uL RDW Standard Deviation 61.7 36.4-46.3 fL RDW Coefficient of Variation 18.1 11.5-14.5 % Immature Granulocyte % (Auto) 0.4 % Immature Granulocyte # (Auto) 0.04 0.00-0.02 K/uL Nucleated RBC Absolute Count (auto) 0.06 0-0 K/uL Nucleated Red Blood Cells % 0.6 % Prothrombin Time 15.2 9.0-12.0 SECONDS Prothromb Time International Ratio 1.4 0.9-1.1 Sodium Level 134 136-145 mmol/L Potassium Level 3.3 3.6 3.5-5.1 mmol/L Chloride Level 95 98-107 mmol/L Carbon Dioxide Level 26 21-32 mmol/L Anion Gap 13.0 3-11 mmol/L Blood Urea Nitrogen 23 7-18 mg/dl Creatinine 3.40 0.60-1.40 mg/dl Est Creatinine Clear Calc Drug Dose 17.5 ml/min Estimated GFR () 18.3 Estimated GFR (Non- 15.8 BUN/Creatinine Ratio 6.8 10-20 Random Glucose 120 70-99 mg/dl Calcium Level 7.4 8.5-10.1 mg/dl Bedside Glucose (other) 120 119 70-99 mg/dl Microbiology Results 05/08/16 Urine Culture, Received Pending Assessment and Plan 81 yo M with hx of CHF, CAD, AFib, ESRD p/w with hx of fall at home w/ resultant Rt displaced humeral fracture, partially displaced R femoral neck fracture s/p hemiarthroplasty of the Rt Hip on 05/05/16 now s/p Post-op cardiac arrest S/P Post-operative Cardiac arrest resuscitated x 2 -unknown etiology of arrest, -acutely encephalopathic from Anoxic brain injury -currently intubated in ICU -had CPAP weaning trial again this morning . sedatives d/c'd and responding to questions -possible extubation today according to poison information specialist Hypotensive shock -currently on Levophed. dobutamine weaned off -Management per poison information specialist Seizures CT head: Senescent changes with no hemorrhage, mass effect, or evidence of acute territorial ischemia EEG: indicates structural or functional cerebral dysfunction in the right greater than left hemisphere, no electrographic seizures or epileptiform discharges Per Neurology, will need repeat CT in a few days for evaluation of brain injury as MRI contraindicated due to pacemaker Keppra d/c'd per neurology Rt humeral fracture and R femoral fracture - s/p Right Hip hemiarthroplasty (POD 1) ESRD -Cr 4.1--> 4.9 - Dialysis 05/07, -Dialysis tmr management per Dr. Ramirez Hx of Afib -management per poison information specialist Ischemic Cardiomyopathy - Hx of Systolic Heart Failure with EF of 20-25 - repeat echo showing EF 20-25%, CAD - Continue Statin, - Imdur, b-harry ,ASA held DM - insulin infusion Hx of HTN -acutely hypotensive before transfert o icu -pressures maintained on Levophed - Norvasc, Imdur, hydralazine and carvedilol discontinued Hypothyroid - Continue Synthroid Gout - allopurinol held Continued [facility] stay due to: abnormal vital signs, multiple IV medications needed, home environment unsafe for pt Discharge planning: uncertain Resident Tracking Resident Involvement: Resident Care Provided Care Provided: Adult Hospital Medicine Reviewed: Pt Seen/Exam by Me History stays intubated more responsive General Appearance: no apparent distress Respiratory: lungs clear, other (on vent) Cardiovascular: regular rate, rhythm Neurologic/Psychiatric: other (opens eyes and followed few commands) Skin Characteristics: warm/dry Assessment/Plan I have reviewed the medical record and performed a history and physical examination of this patient today. I have discussed the case with Dr. Sandy. The above note reflects my findings, conclusions, and recommendations.
[2016-05-08] MEDS: TRAVOPROST Z 0.004% OPH SOLN 2.5 ML BTL OP SCH (20:44)
[2016-05-09] VITALS (44 sets, daily range): BP systolic 86–117; BP diastolic 37–51; PULSE 59–75; TEMP 36.2–36.9; O2SAT 97–100
[2016-05-09] MEDS: PIPERACILL/TAZOBAC IV 3.375 GM in DEXTROSE 5% 50ML 50 ML IV SCH ×2 (01:19→14:32)
[2016-05-09] MEDS ORDERED: VANCOMYCIN INJ 1,000 MG in SODIUM CHLORIDE 0.9% 250ML 250 ML IV STA (02:12)
[2016-05-09] MEDS ORDERED: VANCOMYCIN INJ 1,700 MG in SODIUM CHLORIDE 0.9% 500ML 500 ML IV STA (02:24)
[2016-05-09] MEDS ORDERED: VANCOMYCIN CONSULT ACTIVE PRN (02:30)
[2016-05-09] MEDS: INSULIN ASPART 100 UNITS/ML 3 ML PEN SC SCH ×5 (06:00→20:26)
[2016-05-09] MEDS ORDERED: SODIUM CHLORIDE 0.9% 1000ML 1,000 ML IV PRN (06:00)
[2016-05-09] MEDS: LEVOTHYROXINE 150 MCG TAB PO SCH (06:14)
[2016-05-09 06:23] LABS: HEMATOCRIT 23.1 % (42-52); MEAN CELL VOLUME 95.9 fL (80-100); MEAN CORPUSCULAR HEMOGLOBIN 34.4 pg (25-34); MEAN CORPUSCULAR HGB CONC 35.9 g/dl (32-36); RED BLOOD COUNT 2.41 M/uL (4.7-6.1); WHITE BLOOD COUNT 8.57 K/uL (4.8-10.8)
[2016-05-09 06:47] LABS: MEAN PLATELET VOLUME 9.5 fL (7.4-10.4); PLATELET COUNT 88 K/uL (130-400)
[2016-05-09 06:48] LABS: BASO % 0.1 %; BASO ABS # 0.01 K/uL (0-0.2); COMPLETE YES; EOS % 2.7 %; IG% 0.5 %; LYMPH % 13.7 %; LYMPH ABS # 1.17 K/uL (1.2-3.4); PLT ESTIMATE DECREASED; POIKILOCYTOSIS PRESENT
[2016-05-09 07:18] LABS: BUN/CREATININE RATIO 7.8 (10-20); CALCIUM 7.3 mg/dl (8.5-10.1); CREATININE 4.8 mg/dl (0.60-1.40); POTASSIUM 3.5 mmol/L (3.5-5.1)
--- NOTE | 2016-05-09 07:20 | DIAGNOSTIC IMAGING REPORT ---
CHEST ONE VIEW PORTABLE CLINICAL HISTORY: Dialysis catheter placement RESPIRATORY FAILURE. COMPARISON STUDY: 05/07/2016 FINDINGS: There is been interval removal of the endotracheal tube and nasogastric tubes. There is a left subclavian pacer/defibrillator unchanged in position. There is a right-sided dual-lumen central venous catheter unchanged in position. There is a left internal jugular central venous catheter, the tip of which projects over the aortic knob. This is likely positioned within the left innominate vein. The heart is enlarged. There is radiographic evidence of mild pulmonary edema. There are small bilateral pleural effusions.[ There are persistent bibasal airspace opacities, likely representing atelectasis/edema. IMPRESSION: 1. Cardiomegaly, mild pulmonary edema, and small bilateral pleural effusions 2. Interval removal of the endotracheal tube and nasogastric tubes. Electronically signed by: Chris Guthrie M.D. 05/09/2016 7:18 AM Dictated Date/Time: 05/09/2016 7:16 AM
--- NOTE | 2016-05-09 07:20 | Family Medicine Progress Note ---
Progress Note Date of Service May 09, 2016. Subjective Pt evaluation today including: conversation w/ patient, physical exam, chart review, lab review The patient was seen and examined at bedside. The overnight nurse noticed that the stich in the patient's triple lumen cath had come out. Patient was given Vancomycin as phophylaxis overnight. Pt is lying comfortably in bed. Pt remembers coming into the hospital for a fall. Pt doesn't remember crashing in the post op area or that his heart stopped - according to the nurse Christelle, he is doing much better than the previous day. Pt has no complaints. Denies being in any pain despite his femoral and humerus fractures. Pt is AAOx3. Pt is NPO due to vomiting yesterday. Pt is extubated, breathing on his own and has a peraza catheter. Is scheduled to receive dialysis today. Constitutional: No chills, No fever Respiratory: No cough, No shortness of breath, No wheezing Cardiovascular: No chest pain Objective Physical Exam General Appearance: WD/WN, no apparent distress Respiratory/Chest: lungs clear (anteriorly ) Cardiovascular: regular rate, rhythm, no edema, no gallop, no murmur Abdomen: non tender, soft Extremities: + pertinent finding (Pt has left hand swelling, however it is improved since yesterday. Not wearing a R arm sling, according to nurse Ortho told her it was OK to remove since the sling might get in the way of pt's management. ) Neurologic/Psychiatric: alert, normal mood/affect, oriented x 3 Assessment and Plan 81M with PMHx of CHF, CAD, AFib, ESRD p/w with hx of fall at home w/ resultant Rt displaced humeral fracture, partially displaced R femoral neck fracture s/p hemiarthroplasty of the Rt Hip on 05/05/16 now s/p Post-op cardiac arrest. Patient is improving clinically, AAOx3, extubated on 05/08/16, receiving dialysis //Sat. S/P Post-operative Cardiac arrest resuscitated x 2 -unknown etiology of arrest, patient is extubated, alert,awake and oriented x3 and answering questions, drastic improvement from previous day. -had CPAP weaning trial again this morning . sedatives d/c'd and responding to questions -possible extubation today according to housekeeping aide Hypotensive shock -BP is 99/45, low, Levophed has been discontinued. -Management per housekeeping aide Seizures CT head (05/06/2016): Senescent changes with no hemorrhage, mass effect, or evidence of acute territorial ischemia EEG: indicates structural or functional cerebral dysfunction in the right greater than left hemisphere, no electrographic seizures or epileptiform discharges Per Neurology, will need repeat CT in a few days for evaluation of brain injury as MRI contraindicated due to pacemaker Keppra d/c'd per neurology R femoral fracture- s/p Right Hip hemiarthroplasty (Post op day #4) Rt humeral fracture- conservative management ESRD -Cr 4.1--> 4.9-->4.8 -Had Dialysis Thurs & Sat (today), management by Dr. Ramirez. Leukocytosis - Afebrile, WBC of 8.6, sputum culture Gram Neg Bacilli, sensitivity to follow. C/w Zosyn 3.375mg IV Q12, day 3. Hx of Afib-Rate controlled. Last received heparin on 05/06/16, platelets are 88, 000 from 130,000 two days ago. -management per housekeeping aide CAD - Hasn't received Atorvastatin since 05/07/16. - continue to hold Imdur, b-harry, ASA. DM2 - c/w Novolog Q6 Hx of HTN -acutely hypotensive before transfer to icu - Norvasc, Imdur, hydralazine and carvedilol discontinued Hypothyroid - c/w Synthroid 150mcg daily Gout - allopurinol held Constipation (resolved) - Had BM this AM, soft brown, continue to monitor. Dispo: Full Code, ICU Resident Involvement: Resident Care Provided Care Provided: Adult Hospital Medicine Reviewed: Pt Seen/Exam by Me History extubated earlier today. undergoing HD. off pressors alert and responsive Constitutional: denies: fever Respiratory: negative: short of breath Cardiovascular: denies chest pain General Appearance: no apparent distress Respiratory: lungs clear, no respiratory distress Cardiovascular: regular rate, rhythm (PVCs on monitor) Gastrointestinal: normal bowel sounds, non tender, soft Neurologic/Psychiatric: alert, other (oriented to place and person) Skin Characteristics: warm/dry Assessment/Plan I have reviewed the medical record and performed a history and physical examination of this patient today. I have discussed the case with Dr. Chávez. The above note reflects my findings, conclusions, and recommendations. Extubated this am. Doing well. Off pressors
[2016-05-09] MEDS: DOCUSATE SODIUM 100 MG/10 ML UDC PO SCH ×2 (09:00→19:45)
[2016-05-09] MEDS: POLYETHYLENE (MIRALAX) 17 GM PACK PO SCH (09:00)
[2016-05-09] MEDS: ATORVASTATIN 40 MG TAB PO SCH (09:00)
[2016-05-09] MEDS ORDERED: LIDOCAINE HCL 1% 20 ML VIAL ONE (09:02)
[2016-05-09] MEDS ORDERED: HEPARIN SOD (PORCINE) 1000 UNIT/ML 10 ML VIAL IV SCH (09:30)
[2016-05-09] MEDS ORDERED: EPOETIN ALFA 10,000 UNITS/ML VIAL IV. SCH (09:30)
[2016-05-09] MEDS ORDERED: CALCIUM CARBONATE 500 MG CHEWABLE PO PRN (09:45)
[2016-05-09] MEDS: HEPARIN SOD (PORCINE) 1000 UNIT/ML 10 ML VIAL IV SCH ×2 (10:45→11:46)
[2016-05-09] MEDS: CALCIUM CARBONATE 500 MG CHEWABLE PO SCH ×2 (10:51→16:36)
[2016-05-09] MEDS: CHLORHEXIDINE GLUCONATE 0.12% 480 ML MT SCH ×2 (10:52→19:43)
[2016-05-09] MEDS: BRIMONIDINE TARTRATE-TIMOLOL M 1 DROP BTL OP SCH ×2 (10:52→19:44)
--- NOTE | 2016-05-09 11:25 | Orthopedic Progress Note ---
Orthopedic Progress Note Date of Service May 09, 2016. Subjective Post OP Day: 4 Reports: pain controlled w PO medications Additional Notes: States he's generally feeling better today. Right hip has some pain. Overall, no complaints with the right hip or right upper arm. Objective calves soft nontender, N/V intact, hip located, A&O x3, toes mobile Right hip dressing with blood on dressing. Will change today. Right upper arm with ecchymosis. No ROM tested. Tender at proximal upper arm. NV intact RUE. Date Time Temp Pulse Resp B/P Pulse Ox O2 Delivery O2 Flow Rate FiO2 05/09/16 11:15 62 95/49 05/09/16 11:00 60 98/38 05/09/16 10:45 61 98/43 05/09/16 10:30 61 117/46 05/09/16 10:15 63 99/44 05/09/16 10:00 65 86/45 05/09/16 09:47 60 96/40 05/09/16 09:40 36.4 60 97/47 05/09/16 08:00 Room Air 05/09/16 08:00 36.9 60 18 108/44 100 Room Air 05/09/16 06:00 60 14 100 05/09/16 05:58 60 14 99/45 100 05/09/16 05:00 62 14 100 05/09/16 04:17 100 Nasal Cannula 2.0 05/09/16 04:00 36.2 60 14 100 05/09/16 03:58 60 14 111/41 100 05/09/16 03:13 61 14 89/40 100 05/09/16 03:00 64 14 05/09/16 02:00 60 14 100 05/09/16 01:00 61 14 05/09/16 00:58 59 17 105/45 100 05/09/16 00:00 100 Nasal Cannula 2.0 05/09/16 00:00 36.4 61 17 05/08/16 23:58 61 13 109/50 05/08/16 23:00 60 13 100 05/08/16 22:59 59 24 96/41 100 05/08/16 22:00 63 24 100 05/08/16 21:00 60 24 100 05/08/16 20:58 59 24 98/44 100 05/08/16 20:28 60 24 100/47 100 05/08/16 20:27 61 24 108/38 100 05/08/16 20:00 100 Nasal Cannula 2.0 05/08/16 20:00 36.7 59 13 100 05/08/16 19:58 60 13 95/40 100 05/08/16 19:28 60 13 99/46 100 05/08/16 19:21 59 14 94/42 100 05/08/16 19:00 61 14 100 05/08/16 18:00 61 18 99/45 100 Nasal Cannula 2.0 05/08/16 17:28 61 16 111/40 100 Nasal Cannula 2.0 05/08/16 16:28 62 16 99/42 100 Nasal Cannula 2.0 05/08/16 16:00 Nasal Cannula 2.0 05/08/16 15:59 36.6 60 14 102/39 100 Nasal Cannula 2.0 05/08/16 15:29 60 14 101/40 100 Nasal Cannula 2.0 05/08/16 14:59 60 16 103/40 100 Nasal Cannula 2.0 05/08/16 14:44 60 18 90/39 100 Nasal Cannula 2.0 05/08/16 14:28 59 18 101/41 100 Nasal Cannula 2.0 05/08/16 14:13 59 15 101/40 100 Nasal Cannula 2.0 05/08/16 13:58 59 14 100/39 100 Nasal Cannula 2.0 05/08/16 13:44 60 16 117/39 100 Nasal Cannula 2.0 05/08/16 13:28 59 16 102/41 100 Nasal Cannula 2.0 05/08/16 13:14 60 15 100/39 100 Nasal Cannula 2.0 05/08/16 12:28 59 14 106/43 100 Nasal Cannula 2.0 05/08/16 12:13 36.9 60 18 105/38 100 CPAP 30 Mechanical Ventilator 05/08/16 12:00 CPAP 30 Mechanical Ventilator 05/08/16 12:00 30 05/08/16 11:58 61 16 108/52 100 CPAP 30 Mechanical Ventilator 05/08/16 11:43 60 15 109/53 100 CPAP 30 Mechanical Ventilator 05/08/16 11:29 54 12 100/51 100 CPAP 30 Mechanical Ventilator Laboratory Results 24 Hours: Test 05/09/16 06:08 White Blood Count 8.57 K/uL Red Blood Count 2.41 M/uL Hemoglobin 8.3 g/dL Hematocrit 23.1 % Mean Corpuscular Volume 95.9 fL Mean Corpuscular Hemoglobin 34.4 pg Mean Corpuscular Hemoglobin Concent 35.9 g/dl Platelet Count 88 K/uL Mean Platelet Volume 9.5 fL Neutrophils (%) (Auto) 76.0 % Lymphocytes (%) (Auto) 13.7 % Monocytes (%) (Auto) 7.0 % Eosinophils (%) (Auto) 2.7 % Basophils (%) (Auto) 0.1 % Neutrophils # (Auto) 6.52 K/uL Lymphocytes # (Auto) 1.17 K/uL Monocytes # (Auto) 0.60 K/uL Eosinophils # (Auto) 0.23 K/uL Basophils # (Auto) 0.01 K/uL Assessment & Plan Assessment: POD #4 right hip bipolar hemiarthroplasty. HYPOXIA Right proximal humerus fx--closed tx. HYPOTENSION EXTUBATED Plan: HIP STABLE Change dressing today. OK TO POSITION NEEDED NO NEED FOR SLING UNTIL HE IS OOB (1) Altered mental status Chronic (2) Acute respiratory failure Acute (3) End stage renal disease Chronic (4) Anemia Acute (5) Acute on chronic systolic (congestive) heart failure (6) Diabetes Chronic (7) Leukocytosis (8) Constipation (9) Hypothyroid (10) Fall Acute (11) access Inhouse Planning Pain Management: Percocet, Morphine DVT Prophylaxis: TEDs, SCDs, Heparin Drip Discharge Planning Discharge Planning: uncertain
--- NOTE | 2016-05-09 11:59 | Dialysis Progress Note ---
Hemodialysis Note Date of Service May 09, 2016. Chief Complaint Follow-up for end-stage renal disease on hemodialysis. Subjective Mr. Morrow was seen and examined in his room this morning. He has been tolerating dialysis well, blood pressure remained stable. He was extubated yesterday, currently respiratory status stable. Review of Systems A complete review of systems was performed. Pertinent positives are noted above. All other systems are negative. Vital Signs Last 8 Hrs Date Time Temp Pulse Resp B/P Pulse Ox O2 Delivery O2 Flow Rate FiO2 05/09/16 08:00 36.9 60 18 108/44 100 Room Air 05/09/16 06:00 60 14 100 05/09/16 05:58 60 14 99/45 100 05/09/16 05:00 62 14 100 05/09/16 04:17 100 Nasal Cannula 2.0 05/09/16 04:00 36.2 60 14 100 05/09/16 03:58 60 14 111/41 100 05/09/16 03:13 61 14 89/40 100 05/09/16 03:00 64 14 05/09/16 02:00 60 14 100 I & O 24-Hour Column 05/09/16 08:00 Intake Total 1313 ml Output Total 135 ml Balance 1178 ml Last Recorded Weight Weight (Kilograms): 85.800 Physical Exam GENERAL: Elderly male, AAA x 3, pleasant, ill-appearing, not in any distress. NECK: Supple, no JVD. RESPIRATORY: Normal breathing efforts, no accessory muscle use, clear to auscultation bilaterally, no wheezes or rales. CARDIOVASCULAR: S1, S2 normal, rate rhythm regular. EXTREMITY: No lower extremity edema NEURO: speech fluent. PSYCHIATRY: Normal mood and judgment Social History Drug Use: none Marital Status: Occupation: retired Laboratory Results Past 24 Hours 05/09/16 06:08 Red Blood Count 2.41, Mean Corpuscular Volume 95.9, Mean Corpuscular Hemoglobin 34.4, Mean Corpuscular Hemoglobin Concent 35.9, Mean Platelet Volume 9.5, Neutrophils (%) (Auto) 76.0, Lymphocytes (%) (Auto) 13.7, Monocytes (%) (Auto) 7.0, Eosinophils (%) (Auto) 2.7, Basophils (%) (Auto) 0.1, Neutrophils # (Auto) 6.52, Lymphocytes # (Auto) 1.17, Monocytes # (Auto) 0.60, Eosinophils # (Auto) 0.23, Basophils # (Auto) 0.01 05/08/16 13:09 05/09/16 06:08 Test 05/08/16 13:12 05/08/16 17:58 05/09/16 00:25 05/09/16 05:53 Bedside Glucose (other) 119 mg/dl (70-99) 98 mg/dl (70-99) Bedside Glucose 106 mg/dl (70-99) 107 mg/dl (70-99) Test 05/09/16 06:08 White Blood Count 8.57 K/uL (4.8-10.8) Red Blood Count 2.41 M/uL (4.7-6.1) Hemoglobin 8.3 g/dL (14.0-18.0) Hematocrit 23.1 % (42-52) Mean Corpuscular Volume 95.9 fL (80-100) Mean Corpuscular Hemoglobin 34.4 pg (25-34) Mean Corpuscular Hemoglobin Concent 35.9 g/dl (32-36) Platelet Count 88 K/uL (130-400) Mean Platelet Volume 9.5 fL (7.4-10.4) Neutrophils (%) (Auto) 76.0 % Lymphocytes (%) (Auto) 13.7 % Monocytes (%) (Auto) 7.0 % Eosinophils (%) (Auto) 2.7 % Basophils (%) (Auto) 0.1 % Neutrophils # (Auto) 6.52 K/uL (1.4-6.5) Lymphocytes # (Auto) 1.17 K/uL (1.2-3.4) Monocytes # (Auto) 0.60 K/uL (0.11-0.59) Eosinophils # (Auto) 0.23 K/uL (0-0.5) Basophils # (Auto) 0.01 K/uL (0-0.2) RDW Standard Deviation 61.4 fL (36.4-46.3) RDW Coefficient of Variation 17.8 % (11.5-14.5) Immature Granulocyte % (Auto) 0.5 % Immature Granulocyte # (Auto) 0.04 K/uL (0.00-0.02) Nucleated RBC Absolute Count (auto) 0.06 K/uL (0-0) Nucleated Red Blood Cells % 0.7 % Platelet Estimate DECREASED Poikilocytosis PRESENT Activated Partial Thromboplast Time 52.0 SECONDS (21.0-31.0) Partial Thromboplastin Ratio 2.0 Anion Gap 12.0 mmol/L (3-11) Est Creatinine Clear Calc Drug Dose 12.4 ml/min Estimated GFR () 12.1 Estimated GFR (Non- 10.4 BUN/Creatinine Ratio 7.8 (10-20) Calcium Level 7.3 mg/dl (8.5-10.1) Allergies Coded Allergies: No Known Allergies (Unverified , 04/23/16) Medications Current Inpatient Medications Medications (Trade) Dose Ordered Sig/Summer Route Start Time Stop Time Status Last Admin Dose Admin Acetaminophen (Tylenol Tab) 650 mg Q4H PRN PO 05/03/16 03:30 06/02/16 03:29 Polyethylene (Miralax Powder Packet) 17 gm DAILY PRN PO 05/03/16 03:30 06/02/16 03:29 05/07/16 10:01 17 GM Ondansetron HCl (Zofran Inj) 4 mg Q6H PRN IV 05/03/16 03:30 06/02/16 03:29 05/08/16 10:19 4 MG Atorvastatin Calcium (Lipitor Tab) 80 mg QAM PO 05/03/16 09:00 06/02/16 08:59 05/07/16 10:01 80 MG Levothyroxine Sodium (Synthroid Tab) 150 mcg DAILYBB PO 05/03/16 06:00 06/02/16 05:59 05/09/16 06:14 150 MCG Travoprost (Travatan Z) 1 drops HS OP 05/03/16 21:00 06/02/16 20:59 05/08/16 20:44 1 DROPS Glucose (Glucose 40% Gel) 15-30 GRAMS 15 GRAMS... UD PRN PO 05/03/16 06:00 06/02/16 05:59 Glucose (Glucose Chew Tab) 4-8 Tablets 4 Tabl... UD PRN PO 05/03/16 06:00 06/02/16 05:59 Dextrose (Dextrose 50% 50ML Syringe) 25-50ML OF 50% DW IV FOR... UD PRN IV 05/03/16 06:00 06/02/16 05:59 Glucagon (Glucagon Inj) 1 mg UD PRN SQ 05/03/16 06:00 06/02/16 05:59 Brimonidine/ Timolol (Combigan 0.2%/ 0.5% Oph Solution) 1 drop BID OP 05/04/16 21:00 06/03/16 20:59 05/08/16 20:39 1 DROP Miscellaneous Information 1 ea 1 ea UD PRN N/A 05/05/16 16:15 06/04/16 16:14 Heparin Sodium/ Dextrose (Heparin 25,000 Unit/500ml D5W) 500 ml @ 14 mls/hr Q24H PRN IV 05/05/16 19:00 06/04/16 18:59 05/06/16 21:18 29 MLS/HR Chlorhexidine Gluconate (Peridex Oral Soln) 15 ml BID MT 05/05/16 21:00 06/04/16 20:59 05/08/16 20:37 15 ML Ioversol 111 ml 111 ml UD PRN IV 05/05/16 19:15 05/09/16 19:14 Pantoprazole Sodium/Syringe (Protonix Inj/ Syringe) 10 ml @ 5 mls/min DAILY@11 IV 05/06/16 11:00 06/05/16 10:59 05/08/16 10:19 5 MLS/MIN Piperacillin Sod/ Tazobactam Sod (Consult) 1 ea UD PRN N/A 05/05/16 20:15 06/04/16 20:14 Fentanyl Citrate 50 mcg 50 mcg Q2H PRN IV 05/06/16 07:45 05/20/16 07:44 Fentanyl Citrate (Fentanyl Drip 1250MCG/250 Nss) 250 ml @ 0 mls/hr Q0M PRN IV 05/06/16 07:45 05/20/16 07:44 05/07/16 04:38 15 MLS/HR Enteral Nutritional Formula (Impact 1.0 Jovan) 1,000 ml UD OG 05/06/16 14:15 06/05/16 14:14 Future Hold 05/06/16 20:36 1,000 ML Insulin Aspart SLIDING SCALE G... Q6 SC 05/07/16 06:45 06/06/16 06:44 Norepinephrine Bitartrate/ Dextrose (Levophed Inj/ D5W 500ml) 516 ml @ 0 mls/hr Q0M PRN IV 05/07/16 09:00 06/06/16 08:59 05/07/16 22:38 25.4 MLS/HR Polyethylene (Miralax Powder Packet) 17 gm DAILY PO 05/08/16 09:00 06/07/16 08:59 Docusate Sodium 100 mg 100 mg BID PO 05/07/16 21:00 06/06/16 20:59 05/07/16 22:36 100 MG Piperacillin Sod/ Tazobactam Sod 3.375 gm/Dextrose 65 ml @ 16.25 mls/ hr Q12H IV 05/07/16 14:00 05/13/16 13:59 05/09/16 01:19 16.25 MLS/HR Acetaminophen/ Empty Bag (Ofirmev IV/ Empty Iv Bag 100ml) 65 ml @ 260 mls/hr Q6H PRN IV 05/08/16 09:15 06/07/16 09:14 05/08/16 13:43 260 MLS/HR Heparin Sodium (Porcine) (Heparin Iv Bolus) 2,000 unit TODAY@0930 IV 05/09/16 09:30 05/09/16 18:00 Heparin Sodium (Porcine) (Heparin Iv Bolus) 500 unit TODAY@0930,1030,1130 IV 05/09/16 09:30 05/09/16 18:00 Epoetin Johnny 84153 units 10,000 units TODAY@0930 IV. 05/09/16 09:30 05/09/16 18:00 Sodium Chloride (Nss 1000ml) 1,000 ml @ 0 mls/hr Q0M PRN IV 05/09/16 06:00 05/09/16 18:00 Vancomycin HCl (Consult) 1 ea UD PRN N/A 05/09/16 02:30 06/08/16 02:29 Warfarin Sodium (Coumadin Tab) 2.5 mg DAILY@16 PO 05/09/16 16:00 06/08/16 15:59 UNV Impression (1) End stage renal disease (2) Anemia (3) Closed fracture of right proximal humerus Mr. Morrow is a 81-year-old gentlemen with end-stage renal disease on hemodialysis, admitted to the hospital after he had a fall at home and had hip fracture. He had surgery for hip fracture, postoperative hospital course complicated by respiratory failure requiring intubation. He was extubated yesterday successfully, currently doing well with nasal cannula oxygen saturating well. On hemodialysis twice a week. Recommendations --continue hemodialysis, will try to ultrafiltrate 2 L -- continue on renal diet --Avoid IV fluid --dose medications for GFR less than 10 --start on tums with meal as phosphate binders once patient starts taking orally Will follow
[2016-05-09] MEDS ORDERED: NURSING VERBAL MED ORDER ONE ×2 (12:30→14:45)
[2016-05-09] MEDS: PANTOprazole INJ 40 MG in SYRINGE 0 ML IV SCH (14:32)
[2016-05-09] MEDS: ACETAMINOPHEN IV 650 MG in EMPTY BAG 0 ML IV PRN (15:15)
--- NOTE | 2016-05-09 15:42 | CRITICAL CARE PROGRESS NOTE ---
DATE: 05/09/2016 SUBJECTIVE: The patient was extubated yesterday and has remained so. Last evening he somehow pulled his sutures from his tunneled dialysis catheter site. He also pulled out his NG tube yesterday. He received dialysis this morning where 2 liters with a goal for volume removal. His Levophed has been weaned off and he has no specific complaints. His care was discussed with his bedside nurse, Christelle. He is having bowel movements and there have been no signs of acute bleeding. He was started on vancomycin last night. PHYSICAL EXAMINATION: VITAL SIGNS: Maximum temperature 36.9, heart rate 60s, respiratory rate 14, blood pressure 99-111/40, oxygen saturation 100% on 2 liters nasal cannula. A 24-hour fluid balance positive 920 mL. GENERAL: He is awake and oriented to the hospital and himself. He knows he had his hip repaired and remembers falling. He is slow to speak and has a very quiet voice. LUNGS: Moderate inspiratory effort with bibasilar rales. No rhonchi or wheezes. Exam is limited due to the fact that he is on dialysis. HEART: Regular rate and rhythm. ABDOMEN: Soft, nondistended, nontender with active bowel sounds. EXTREMITIES: Somewhat cool. Decreased edema in bilateral lower extremities, the right arm is larger than the left. There is no pedal edema. He is wearing waffle boots. There is ecchymosis over the right arm. NEUROLOGIC: He moves all 4 extremities to command but is generally weak. LABORATORY DATA: White blood cell count 8.57, hemoglobin 8.3, hematocrit 23.1, platelets 88. Sodium 133, potassium 3.5, chloride 96, CO2 25, BUN 36, creatinine 4.8. Blood sugar 99, calcium 7.3. Urine culture done on April 28 shows no growth, less than 1000 colonies. Sputum culture done on May 07, gram negative bacilli with sensitivity to follow. Blood cultures done on May 05, no growth. Portable chest x-ray from this morning was reviewed and shows cardiomegaly and mild pulmonary edema as well as small bilateral pleural effusions. MEDICATIONS AND INFUSIONS: Acetaminophen, Lipitor, eyedrops, calcium carbonate, chlorhexidine, Colace, Procrit, fentanyl as needed, heparin infusion, insulin sliding scale, levothyroxine, Protonix, Zosyn day 5, vancomycin day 5, Coumadin. IMPRESSION: 1. Postop day #4 status post repair of right hip fracture and postoperative cardiac arrest. 2. Acute hypoxemic respiratory failure, intubated and now extubated yesterday. 3. Possible aspiration event postoperatively. 4. Acute on chronic systolic heart failure. 5. Chronic atrial fibrillation and history of ischemic cardiomyopathy EF 20-25% as well as coronary artery disease. 6. Constipation, improved. 7. Gram-negative rods in his sputum - he may be developing pneumonia but has continued to improve from a pulmonary stand point. 8. End-stage renal disease, formerly getting hemodialysis twice a week. 9. Diabetes mellitus with variable blood sugar control. 10. Hypothyroidism. 11. Generalized weakness 12. Status post fall with R hip and R humerus fracture 13. S/p creating of new AV fistula 05/04/2016 PLAN: NEUROLOGIC: Continue to avoid sedating medications if at all possible. Try acetaminophen before using any kind of narcotic. I would decrease the p.r.n. fentanyl dosing. PULMONARY: Add flutter valve for pulmonary expansion. Continue bronchodilators as well as antibiotics. Volume removal may help his pulmonary status although it continues to improve. INFECTIOUS DISEASE: Continue Zosyn, I have discontinued the vancomycin again. Watch for any fever and culture if his temperature is greater than or equal to 38.2. Await further information on the GNR in the sputum. WBC is not elevated and he is not producing much, if any, sputum. GASTROINTESTINAL: Speech evaluation is pending for today. Consider nutritional supplements. HEMATOLOGIC: CT of his chest was negative for PE. Lower extremity Dopplers were negative. He remains on the heparin for his atrial fibrillation. Begin to transition to Coumadin. CARDIOVASCULAR: Continue off any vasopressors or inotropes. Add back his home cardiovascular medicines as his clinical status warrants - particularly the coreg. MISCELLANEOUS: Continue GI prophylaxis and consult the physical therapy service. I think he should be getting out of bed, but there is concern for manipulating the right upper extremity should he need a Iesha lift to do so. Two sutures have been placed near the insertion site of his dialysis catheter. He is close to being able to be transferred to telemetry. Please call me with any questions or concerns. ELIE
[2016-05-09] MEDS: WARFARIN SOD 2.5 MG TAB PO SCH (16:37)
[2016-05-09] MEDS: TRAVOPROST Z 0.004% OPH SOLN 2.5 ML BTL OP SCH (19:45)
[2016-05-10] VITALS (21 sets, daily range): BP systolic 98–124; BP diastolic 50–71; PULSE 36–69; TEMP 36.3–36.7; O2SAT 80–100
[2016-05-10 00:05] LABS: HEMATOCRIT 24.5 % (42-52)
[2016-05-10 00:46] LABS: CALCIUM 7.6 mg/dl (8.5-10.1); CREATININE 2.9 mg/dl (0.60-1.40); POTASSIUM 3.5 mmol/L (3.5-5.1)
[2016-05-10] MEDS ORDERED: LEVAQUIN 500MG / 100ML D5W IV ONE (01:15)
[2016-05-10] MEDS ORDERED: LEVOFLOXACIN 500MG / D5W IV STA (01:21)
[2016-05-10] MEDS: PIPERACILL/TAZOBAC IV 3.375 GM in DEXTROSE 5% 50ML 50 ML IV SCH (01:32)
[2016-05-10 01:43] LABS: ISTAT CARBON DIOXIDE VENOUS 26 mEq/l (24-31); ISTAT VENOUS BLOOD GAS HCO3 25 meq/L (23-28); ISTAT VENOUS BLOOD GAS PCO2 37 mmHg (38.0-50.0); ISTAT VENOUS BLOOD GAS PO2 33 mmHg (30-55); ISTAT VENOUS BLOOD GAS pH 7.44 (7.36-7.41)
[2016-05-10] MEDS: HEPARIN 25,000 UNIT/500ML D5W 500 ML IV PRN ×2 (01:45→08:09)
--- NOTE | 2016-05-10 02:46 | Progress Note ---
Progress Note DOC NOTE: The patient had become more agitated during the evening hours and required a sitter. Venous blood gas performed showed reasonably normal pH. His pulse ox on room air was 92%, and improved to 99% with the addition of 2 L nasal cannula O2. Follow-up chest x-ray tonight showed a progressively worsening right lower lobe pneumonia. He is presently on Zosyn IV, and will have the addition of levofloxacin 500 mg IV every 24 hours, and I have discussed with pharmacy protocol for adding gentamicin IV as well to cover the gram-negative bacilli found in his sputum.
[2016-05-10] MEDS ORDERED: DEXTROSE 5% IV SCH (03:00)
[2016-05-10] MEDS ORDERED: GENTAMICIN IV SCH (03:00)
[2016-05-10] MEDS ORDERED: GENTAMICIN CONSULT ACTIVE PRN (03:15)
[2016-05-10] MEDS: CALCIUM CARBONATE 500 MG CHEWABLE PO SCH ×3 (05:42→16:35)
[2016-05-10] MEDS: LEVOTHYROXINE 150 MCG TAB PO SCH (05:42)
[2016-05-10] MEDS: INSULIN ASPART 100 UNITS/ML 3 ML PEN SC SCH ×2 (05:59→15:59)
[2016-05-10 06:11] LABS: HEMATOCRIT 25.1 % (42-52); MEAN CELL VOLUME 98.8 fL (80-100); MEAN CORPUSCULAR HEMOGLOBIN 33.9 pg (25-34); MEAN CORPUSCULAR HGB CONC 34.3 g/dl (32-36); RED BLOOD COUNT 2.54 M/uL (4.7-6.1); WHITE BLOOD COUNT 8.44 K/uL (4.8-10.8)
[2016-05-10 06:24] LABS: PLATELET COUNT 95 K/uL (130-400)
[2016-05-10 06:28] LABS: INR 1.5 (0.9-1.1); PARTIAL THROMBOPLASTIN RATIO 1.8
[2016-05-10 06:40] LABS: BUN/CREATININE RATIO 6.2 (10-20); CALCIUM 7.4 mg/dl (8.5-10.1); CREATININE 3.3 mg/dl (0.60-1.40); POTASSIUM 3.5 mmol/L (3.5-5.1)
[2016-05-10 07:07] LABS: BASO % 0.2 %; BASO ABS # 0.02 K/uL (0-0.2); COMPLETE YES; EOS % 2.1 %; IG% 1.3 %; LYMPH % 15.4 %; MONO % 7.7 %; NEUT % 73.3 %; POLYCHROMASIA 1+
[2016-05-10] MEDS ORDERED: HEPARIN IV BOLUS 3,000 UNIT in SYRINGE 0 ML IV ONE (08:00)
[2016-05-10] MEDS: POLYETHYLENE (MIRALAX) 17 GM PACK PO SCH (08:10)
[2016-05-10] MEDS: ATORVASTATIN 40 MG TAB PO SCH (08:10)
[2016-05-10] MEDS: DOCUSATE SODIUM 100 MG/10 ML UDC PO SCH (08:10)
[2016-05-10] MEDS: BRIMONIDINE TARTRATE-TIMOLOL M 1 DROP BTL OP SCH ×2 (08:11→19:46)
[2016-05-10] MEDS: CHLORHEXIDINE GLUCONATE 0.12% 480 ML MT SCH (08:11)
[2016-05-10 08:14] LABS: HEPATITIS B AB POS
--- NOTE | 2016-05-10 09:23 | Pharmacy Progress Note ---
Glycemic Control: Progress Nt Date of Service May 10, 2016. Scope Glycemic Pharmacist consulted by Dr Alves on 05/05/16 for glycemic control and to write orders per [facility] inpatient glycemic control protocol. Objective Accuchecks BSG (last 24hrs): Test 05/09/16 11:55 05/09/16 16:10 05/09/16 23:54 05/10/16 05:55 Bedside Glucose 84 mg/dl (70-99) 96 mg/dl (70-99) Random Glucose 93 mg/dl (70-99) 99 mg/dl (70-99) Test 05/10/16 05:59 Bedside Glucose 104 mg/dl (70-99) Laboratory Data (last 24hrs) Test 05/09/16 23:54 05/10/16 05:55 Anion Gap 12.0 mmol/L 12.0 mmol/L BUN/Creatinine Ratio 6.0 6.2 Blood Urea Nitrogen 18 mg/dl 20 mg/dl Creatinine 2.90 mg/dl 3.30 mg/dl Potassium Level 3.5 mmol/L 3.5 mmol/L Sodium Level 139 mmol/L 138 mmol/L White Blood Count 8.44 K/uL Red Blood Count 2.54 M/uL Hemoglobin 8.6 g/dL Hematocrit 25.1 % Mean Corpuscular Volume 98.8 fL Mean Corpuscular Hemoglobin 33.9 pg Mean Corpuscular Hemoglobin Concent 34.3 g/dl Platelet Count 95 K/uL Mean Platelet Volume 10.0 fL Neutrophils (%) (Auto) 73.3 % Lymphocytes (%) (Auto) 15.4 % Monocytes (%) (Auto) 7.7 % Eosinophils (%) (Auto) 2.1 % Basophils (%) (Auto) 0.2 % Neutrophils # (Auto) 6.18 K/uL Lymphocytes # (Auto) 1.30 K/uL Monocytes # (Auto) 0.65 K/uL Eosinophils # (Auto) 0.18 K/uL Basophils # (Auto) 0.02 K/uL Recent Pertinent Medications Outpatient Anti-diabetic Regimen: * glipizide ER 5mg PO daily * NovoLog sliding scale * Lantus 12 units SQ q AM The patient is currently receiving: * Basal insulin: none at this time * Correctional Insulin: NovoLog Correction per scale AC/HS or q6 hours if NPO Goal Range: Low 140 mg/dL - High 180 mg/dL Correction Factor: 50 mg/dL/unit * Prandial insulin: Per carb ratio of 1 unit per -- grams CHO consumed Risk Factors for Insulin Resistance: * Infection: piperacillin/tazobactam IV day #6, gentamicin IV day #1 * IVF: heparin infusion * Recent Surgery: POD #5 * Diet: advanced to T2DM/renal Assessment & Plan ASSESSMENT: * ADA & AACE recommend a goal blood sugar range 140-180 mg/dl for the majority of critically ill & non-critically ill patients. However, more stringent targets may be selected in individual cases. 05/05/16 * Consult received postoperatively today - after review of the patient's BSG trends, it appears that Mr Morrow has been having BSGs below goal range. * Hold basal insulin at this time (last dose administered on 05/03/16) * "Loosen" NovoLog goal range to be in accordance with ADA recommendations and continue to forgo carbohydrate coverage. * The patient has PMHx significant for ESRD with HD - this will likely make the A1c difficult to interpret * Insulin regimen based on POC BSG values instead of A1c * Around 1730 the patient was a code blue; fentanyl gtt and epi gtt ordered. * Increased physiological stress may cause BSGs to trend upwards - monitor with Accu-checks and re-assess in AM * If BSGs trend upwards, may consider insulin infusion as the standard of care in ICU 05/06/16 * Pt remains ventilated and blood sugars have risen to the 200's * Based on acute stressors and risk of hypoglycemia, begin insulin infusion per MD * Insulin infusion not started initially this AM because of limited line access * Central line has been place and POC BSG 211 mg/dL * Plan is for insulin infusion X 24 hours and reassess in the AM 05/08/16 * The insulin infusion was stopped in the early hours of 05/07/16. Since that time, the patient has required minimal insulin subcutaneously. * Currently, basal insulin not needed as Mr. Morrow is NPO and tube feeds are on hold. His "fasting' blood glucose this AM was 120mg/dL * NovoLog every 6 hours (or AC/HS if/when diet is ordered) is adequately controlling any blood glucose outliers. * no change to NovoLog parameters at this time. 05/10/16 * Mr. Morrow has not required any insulin for 3 days. * decrease frequency of Accu-checks to BID with breakfast and dinner only * no change to parameters * continue to forgo basal insulin * May need insulin once caloric intake increases as he does require insulin as an outpatient PLAN FOR INPATIENT GLYCEMIC CONTROL: * Holding Lantus at this time * Continue NovoLog BID with breakfast and supper * Correction factor: 50mg/dL/unit * Carb ratio: forgo at this time * Goal range: 140-180mg/dL * Please note that the plan above was derived based on current level of insulin resistance and hospital stress. These recommendations are appropriate for inpatient admission only. Plan of care upon discharge will need to be reassessed to avoid potential outpatient hypo/hyperglycemia. Thank you.
--- NOTE | 2016-05-10 09:28 | DIAGNOSTIC IMAGING REPORT ---
SINGLE VIEW CHEST CLINICAL HISTORY: Follow pneumonia. FINDINGS: An AP, portable, upright chest radiograph is compared to study dated 05/09/2016 and correlated with chest CT dated 05/05/2016. The examination is degraded by portable technique and patient rotation. A right internal jugular central venous catheter, a left internal jugular central venous catheter, and the cardiac AICD are unchanged in position. The heart is enlarged and there is atherosclerotic calcification of the thoracic aorta. There is pulmonary vascular congestion and mild interstitial edema. Emphysema and chronic interstitial thickening is similar to previous. Small pleural effusions and right greater than left bibasilar airspace opacities are unchanged. No pneumothorax is seen. The skeletal structures are osteopenic. Posttraumatic deformity is noted in the right humerus. IMPRESSION: 1. Stable lines and tubes. 2. Cardiomegaly and pulmonary vascular congestion. Mild interstitial edema is observed. This is unchanged to modestly worsened from yesterday. 3. Emphysema. 4. Small pleural effusions and right greater than left bibasilar consolidation. This is similar to slightly progressed at the right lung base from yesterday. Electronically signed by: Sree Zaragoza M.D. 05/10/2016 9:26 AM Dictated Date/Time: 05/10/2016 9:23 AM
--- NOTE | 2016-05-10 10:27 | Family Medicine Progress Note ---
Progress Note Date of Service May 10, 2016. Subjective Pt evaluation today including: conversation w/ patient, physical exam, chart review, lab review The patient was seen and examined at bedside. According to nursing notes pt had confusion as soon as the sun went down - thought he was in a bus. Per nursing notes HR hit 36bpm, however the nurse believes that the leads weren't picking up appropriately, no significant bradycardia after the leads were changed. Pt denies any acute events overnights. Denies ever having chest pain or feeling confused. Pt feels good, is doing his Sudoku at bedside. Is interested in going to site at the chair at his bedside. Denies being in any pain, specifically he denies pain in his right forearm. Pt is extubated and eating appropriately. Pt has a peraza catheter draining concentrated yellow urine. Pt is not on oxygen. Chest X-ray overnight revealed mild worsening of interstitial edema and small pleural effusions on the right. The vending route driver gave the pt a dose of Gentamycin and Levofloxacin, due to worsening pulmonary congestion on X-ray. Plan of care was described to the patient and all questions were answered. Will discuss step down to telemetry with Automation Test Developer. Constitutional: No chills, No fever Respiratory: No cough, No shortness of breath, No sputum, No wheezing Cardiovascular: No chest pain, No orthopnea Abdomen: No diarrhea, No nausea, No pain, No vomiting Objective Physical Exam General Appearance: WD/WN, no apparent distress Eyes: PERRL Respiratory/Chest: chest non-tender, lungs clear (anteriorly, difficult to auscuslate posteriorly because of R humerus fracture and R hip fracture. Pt is not supposed to sit to 90 degrees with right hip fracture. ) Cardiovascular: regular rate, rhythm, no edema, no gallop, no JVD, + pertinent finding (Pt has a pacemaker placed. ) Abdomen: normal bowel sounds, non tender, soft, no organomegaly Extremities: normal range of motion, non-tender, normal inspection, no calf tenderness, + pertinent finding (Pt has a peraza catheter and SCDs on. ) Neurologic/Psychiatric: alert, normal mood/affect, oriented x 3 Assessment and Plan 81M with PMHx of CHF with Pacemaker, CAD, AFib, ESRD p/w with hx of fall at home. Radiology in the ER revealed a Rt displaced humeral fracture and partially displaced R femoral neck fracture. Pt received a hemiarthroplasty of the Rt Hip on 05/05/16. In the recovery room pt developed a cardiac arrest after extubation. CPR was performed, rhythm was establish after Epinephrine administration and soon after pt went into another cardiac arrest and CPR was initiated. Pt recovered and was placed in the ICU. Patient has had a dramatic improvement, was extubated on 05/08/16, showing signs of sundowning at night ( may be part of patient's baseline mental status) otherwise patient is AAOx3, received dialysis Thurs/Sat- according to chart review he receives dialysis twice a week. Majority of management by Instensivist, Dr. Romeo, while in the ICU. Mild worsening of pulmonary congestion, Pneumonia vs CHF - Pt given Gentamycin and Levofloxacin overnight by vending route driver on 05/10/16 due to worsening of LL consolidations. Afebrile, WBC of 8.4, sputum culture Gram Neg Bacilli, sensitivity to follow. s/p Zosyn 3.375mg IV Q12 x 3 days. - Pt started on Cefepime 1g today and 500mg daily, Day #[address] Romeo. - Speech therapy on 05/09/16: 1. Moist dental soft diet 2. Aspiration precautions: straws okay; fully upright for meals and for 30-45 minutes after meal; head of bed at 30-degrees or higher at all times--even for sleep 3. Mouth care frequently 4. MANAGER SCHEDULING will f/u to ensure pt tolerating oral intake safely and adequately and then will d/c from regular treatment in acute care. S/P Post-operative Cardiac arrest resuscitated x 2 -Unknown etiology of arrest, possible fat embolus, patient is extubated, alert, awake and oriented x3 and answering questions, working on Sudoku. - Possible transfer to telemetry today as well as out of bed to chair. - PT / OT on board. Seizures CT head (05/06/2016): Senescent changes with no hemorrhage, mass effect, or evidence of acute territorial ischemia EEG: indicates structural or functional cerebral dysfunction in the right greater than left hemisphere, no electrographic seizures or epileptiform discharges Per Neurology, will need repeat CT in a few days for evaluation of brain injury as MRI contraindicated due to pacemaker Keppra d/c'd per neurology R femoral fracture- s/p Right Hip hemiarthroplasty (Post op day #5), as per nursing protocols, avoiding bending trunk past 90 degrees. Rt humerus fracture- conservative management ESRD -Had Dialysis Thurs & Sat (today), management by Dr. Ramirez. Hx of Afib-Rate controlled. IV heparin, pt restarted on 2.5mg Warfarin, will monitor INRs. Platelets are 95K<--88K<--130,000. Continue to monitor. -management per decontaminator CAD - Hasn't received Atorvastatin since 05/07/16. - continue to hold Imdur, b-harry, ASA. DM2 - c/w Novolog Q6 Hx of HTN - Norvasc, Imdur, hydralazine and carvedilol discontinued Hypothyroid - c/w Synthroid 150mcg daily Gout - Allopurinol held Constipation (resolved) - Had BM yesterday, soft brown, continue to monitor. DVT Proph / Dispo: Heparin Drip, Full Code, ICU, will need rehab placement. Resident Involvement: Resident Care Provided Care Provided: Adult Hospital Medicine Reviewed: Pt Seen/Exam by Me History alert in bed. denies any complains. Constitutional: denies: fever Respiratory: negative: short of breath Cardiovascular: denies chest pain Gastrointestinal/Abdominal: negative: abdominal pain General Appearance: no apparent distress Respiratory: lungs clear, no respiratory distress Cardiovascular: regular rate, rhythm Neurologic/Psychiatric: alert, other (oriented to place and person) Skin Characteristics: warm/dry Assessment/Plan I have reviewed the medical record and performed a history and physical examination of this patient today. I have discussed the case with Dr. Chávez. The above note reflects my findings, conclusions, and recommendations. Transfer to medical floor.
--- NOTE | 2016-05-10 10:39 | Neurology Progress Notes ---
Neurology Progress Note Date of Service May 10, 2016. Subjective Patient is extubated. He denies any pain or headaches. Denies any focal numbness or weakness. No neurological complaints this morning. Objective Date Time Temp Pulse Resp B/P Pulse Ox O2 Delivery O2 Flow Rate FiO2 05/10/16 10:00 66 16 113/55 100 Room Air 05/10/16 08:00 36.7 60 18 98/50 100 Room Air 05/10/16 08:00 Room Air 05/10/16 06:00 63 16 100 05/10/16 05:58 62 18 110/71 100 05/10/16 05:00 61 16 100 05/10/16 04:20 100 Room Air 05/10/16 04:15 36.3 61 16 105/51 100 05/10/16 04:00 61 16 100 05/10/16 03:00 62 12 100 05/10/16 02:00 62 13 100 05/10/16 01:59 68 16 110/65 100 05/10/16 01:31 61 18 98/57 99 05/10/16 01:30 60 18 99 05/10/16 01:20 36 05/10/16 01:00 69 16 80 05/10/16 00:24 40 05/10/16 00:00 36.4 61 12 99 05/10/16 00:00 100 Room Air 05/09/16 23:58 61 18 92/42 97 05/09/16 23:00 60 11 100 05/09/16 22:58 60 12 86/42 100 05/09/16 22:00 61 16 05/09/16 21:00 60 13 05/09/16 20:00 100 Room Air 05/09/16 20:00 62 13 05/09/16 19:58 36.4 61 22 101/38 05/09/16 19:17 60 21 98/49 05/09/16 19:00 67 19 05/09/16 18:00 64 22 98/49 100 Room Air 05/09/16 16:00 Room Air 05/09/16 16:00 36.6 65 22 90/47 100 Room Air 05/09/16 14:30 36.3 61 93/50 05/09/16 14:00 65 18 90/49 100 Room Air 05/09/16 13:30 67 103/37 05/09/16 13:15 60 109/41 05/09/16 13:00 62 94/39 05/09/16 12:45 62 91/37 05/09/16 12:30 65 101/45 05/09/16 12:15 63 90/37 05/09/16 12:00 68 92/51 05/09/16 12:00 Room Air 05/09/16 12:00 36.9 66 19 92/51 100 Room Air 05/09/16 11:45 75 102/42 05/09/16 11:30 74 101/43 05/09/16 11:15 62 95/49 05/09/16 11:00 60 98/38 05/09/16 10:45 61 98/43 Last 24 Hours Test 05/09/16 11:55 05/09/16 16:10 05/09/16 23:54 05/10/16 01:29 Bedside Glucose 84 mg/dl 96 mg/dl Hemoglobin 8.6 g/dL Hematocrit 24.5 % Sodium Level 139 mmol/L Potassium Level 3.5 mmol/L Chloride Level 99 mmol/L Carbon Dioxide Level 28 mmol/L Anion Gap 12.0 mmol/L Blood Urea Nitrogen 18 mg/dl Creatinine 2.90 mg/dl Est Creatinine Clear Calc Drug Dose 22.2 ml/min Estimated GFR () 22.2 Estimated GFR (Non- 19.1 BUN/Creatinine Ratio 6.0 Random Glucose 93 mg/dl Calcium Level 7.6 mg/dl Magnesium Level 2.0 mg/dl Bedside Venous pH 7.44 Bedside Venous pCO2 37 mmHg Bedside Venous pO2 33 mmHg Bedside Venous HCO3 25 meq/L Bedside Venous Blood Total CO2 26 mEq/l Bedside Venous Blood O2 Saturation 68.0 % Bedside Venous Blood Base Excess 1.0 meq/L Test 05/10/16 05:55 05/10/16 05:59 White Blood Count 8.44 K/uL Red Blood Count 2.54 M/uL Hemoglobin 8.6 g/dL Hematocrit 25.1 % Mean Corpuscular Volume 98.8 fL Mean Corpuscular Hemoglobin 33.9 pg Mean Corpuscular Hemoglobin Concent 34.3 g/dl Platelet Count 95 K/uL Mean Platelet Volume 10.0 fL Neutrophils (%) (Auto) 73.3 % Lymphocytes (%) (Auto) 15.4 % Monocytes (%) (Auto) 7.7 % Eosinophils (%) (Auto) 2.1 % Basophils (%) (Auto) 0.2 % Neutrophils # (Auto) 6.18 K/uL Lymphocytes # (Auto) 1.30 K/uL Monocytes # (Auto) 0.65 K/uL Eosinophils # (Auto) 0.18 K/uL Basophils # (Auto) 0.02 K/uL RDW Standard Deviation 62.4 fL RDW Coefficient of Variation 18.1 % Immature Granulocyte % (Auto) 1.3 % Immature Granulocyte # (Auto) 0.11 K/uL Nucleated RBC Absolute Count (auto) 0.09 K/uL Nucleated Red Blood Cells % 1.1 % Polychromasia 1+ Prothrombin Time 16.0 SECONDS Prothromb Time International Ratio 1.5 Activated Partial Thromboplast Time 46.2 SECONDS Partial Thromboplastin Ratio 1.8 Sodium Level 138 mmol/L Potassium Level 3.5 mmol/L Chloride Level 99 mmol/L Carbon Dioxide Level 27 mmol/L Anion Gap 12.0 mmol/L Blood Urea Nitrogen 20 mg/dl Creatinine 3.30 mg/dl Est Creatinine Clear Calc Drug Dose 19.5 ml/min Estimated GFR () 19.0 Estimated GFR (Non- 16.4 BUN/Creatinine Ratio 6.2 Random Glucose 99 mg/dl Calcium Level 7.4 mg/dl Hepatitis B Surface Antigen NEG Hepatitis B Surface Antibody POS Bedside Glucose 104 mg/dl Exam: Gen.: Patient is lying in bed in no acute distress Extremities: No gross deformities or rashes noted. Some bruising of extremities Neurological examination: Mental status: Patient is alert and oriented to person place and time. Able to give me his own history. Attention and concentration normal for the situation. Speech is fluent without any dysarthria or aphasia noted Cranial nerves: Pupils equally round and reactive to light. Extraocular muscles intact without nystagmus. No facial asymmetry noted. Facial sensation intact. Tongue is midline. Good palatal elevation. Strength: Limited strength examination of right upper extremity secondary to pain. Left proximal upper extremity 3/5 and bilateral distal upper extremity strength 5/5. Proximal lower extremity strength 3/5, and distal lower extremity strength 5/5. Sensation: Grossly intact to light touch in all extremities. No sensory extinction. Station within the bed was normal. Current Inpatient Medications Medications (Trade) Dose Ordered Sig/Summer Route Start Time Stop Time Status Last Admin Dose Admin Acetaminophen (Tylenol Tab) 650 mg Q4H PRN PO 05/03/16 03:30 06/02/16 03:29 Polyethylene (Miralax Powder Packet) 17 gm DAILY PRN PO 05/03/16 03:30 06/02/16 03:29 05/07/16 10:01 17 GM Ondansetron HCl (Zofran Inj) 4 mg Q6H PRN IV 05/03/16 03:30 06/02/16 03:29 05/08/16 10:19 4 MG Atorvastatin Calcium (Lipitor Tab) 80 mg QAM PO 05/03/16 09:00 06/02/16 08:59 05/10/16 08:10 80 MG Levothyroxine Sodium (Synthroid Tab) 150 mcg DAILYBB PO 05/03/16 06:00 06/02/16 05:59 05/10/16 05:42 150 MCG Travoprost (Travatan Z) 1 drops HS OP 05/03/16 21:00 06/02/16 20:59 05/09/16 19:45 1 DROPS Glucose (Glucose 40% Gel) 15-30 GRAMS 15 GRAMS... UD PRN PO 05/03/16 06:00 06/02/16 05:59 Glucose (Glucose Chew Tab) 4-8 Tablets 4 Tabl... UD PRN PO 05/03/16 06:00 06/02/16 05:59 Dextrose (Dextrose 50% 50ML Syringe) 25-50ML OF 50% DW IV FOR... UD PRN IV 05/03/16 06:00 06/02/16 05:59 Glucagon (Glucagon Inj) 1 mg UD PRN SQ 05/03/16 06:00 06/02/16 05:59 Brimonidine/ Timolol (Combigan 0.2%/ 0.5% Oph Solution) 1 drop BID OP 05/04/16 21:00 06/03/16 20:59 05/10/16 08:11 1 DROP Miscellaneous Information 1 ea 1 ea UD PRN N/A 05/05/16 16:15 06/04/16 16:14 Heparin Sodium/ Dextrose 500 ml @ 17 mls/hr Q24H PRN IV 05/05/16 19:00 06/04/16 18:59 05/10/16 08:09 17 MLS/HR Pantoprazole Sodium/Syringe (Protonix Inj/ Syringe) 10 ml @ 5 mls/min DAILY@11 IV 05/06/16 11:00 06/05/16 10:59 05/09/16 14:32 5 MLS/MIN Polyethylene 17 gm 17 gm DAILY PO 05/08/16 09:00 06/07/16 08:59 05/10/16 08:10 17 GM Acetaminophen/ Empty Bag (Ofirmev IV/ Empty Iv Bag 100ml) 65 ml @ 260 mls/hr Q6H PRN IV 05/08/16 09:15 06/07/16 09:14 05/09/16 15:15 260 MLS/HR Warfarin Sodium (Coumadin Tab) 2.5 mg DAILY@16 PO 05/09/16 16:00 06/08/16 15:59 05/09/16 16:37 2.5 MG Calcium Carbonate (Tums Chew Tab) 500 mg AC PO 05/09/16 11:00 06/08/16 10:59 05/10/16 05:42 500 MG Insulin Aspart SLIDING SCALE G... BIDM SC 05/10/16 16:30 06/09/16 16:29 Cefepime HCl 1000 mg/Dextrose 111.3 ml @ 222.6 mls/ hr TODAY@1400 ONCE IV 05/10/16 14:00 05/10/16 14:29 Cefepime HCl/ Dextrose (Maxipime IV/D5 100ml) 105.65 ml @ 222.6 mls/hr DAILY@1400 IV 05/11/16 14:00 05/17/16 13:59 Docusate Sodium (coLACE CAP) 100 mg BID PO 05/10/16 21:00 06/09/16 20:59 Impression 81-year-old male with acute encephalopathy after 2 in-hospital cardiac arrest concerning for anoxic brain injury. No clear seizure activity. Patient's overall neurological examination has dramatically improved over the last several days. No clear focal neurological deficits at this time. I am concerned though that the patient could have still suffered some anoxic brain injury due to his 2 cardiac arrest. Plan No antiepileptic medications needed at this time, unless the patient has a clear clinical seizure in the future. Recommend considering repeating CT of the head when medically stable. While this would not change his medical management, it would be interesting to see if there is any imaged ischemic damage. Unable to get MRI due to cardiac defibrillator Avoid hypotension and dehydration Follow-up PT/OT and speech evaluation Overall may take time to see if the patient has any significant neurological or cognitive deficits. Could consider following up in the neurology clinic a month after hospital discharge for more comprehensive neurological assessment and examination after he has recovered from his current hospital stay No additional neurological recommendations at this time. Thank you for allowing me to participate in this patient's care. If there is any concerns or questions , feel free to call/page me. Dr. Jim Shelley will be taking over the neurology consult service on Wednesday if neurological reevaluation is needed in the next week.
--- NOTE | 2016-05-10 11:10 | Orthopedic Progress Note ---
Orthopedic Progress Note Date of Service May 10, 2016. Subjective Post OP Day: 5 Reports: feeling well, pain controlled w PO medications, Denies: complaints Objective calves soft nontender, N/V intact, hip located, capillary refill less than 2 sec., incision C/D/I, A&O x3, toes mobile Date Time Temp Pulse Resp B/P Pulse Ox O2 Delivery O2 Flow Rate FiO2 05/10/16 10:00 66 16 113/55 100 Room Air 05/10/16 08:00 36.7 60 18 98/50 100 Room Air 05/10/16 08:00 Room Air 05/10/16 06:00 63 16 100 05/10/16 05:58 62 18 110/71 100 05/10/16 05:00 61 16 100 05/10/16 04:20 100 Room Air 05/10/16 04:15 36.3 61 16 105/51 100 05/10/16 04:00 61 16 100 05/10/16 03:00 62 12 100 05/10/16 02:00 62 13 100 05/10/16 01:59 68 16 110/65 100 05/10/16 01:31 61 18 98/57 99 05/10/16 01:30 60 18 99 05/10/16 01:20 36 05/10/16 01:00 69 16 80 05/10/16 00:24 40 05/10/16 00:00 36.4 61 12 99 05/10/16 00:00 100 Room Air 05/09/16 23:58 61 18 92/42 97 05/09/16 23:00 60 11 100 05/09/16 22:58 60 12 86/42 100 05/09/16 22:00 61 16 05/09/16 21:00 60 13 05/09/16 20:00 100 Room Air 05/09/16 20:00 62 13 05/09/16 19:58 36.4 61 22 101/38 05/09/16 19:17 60 21 98/49 05/09/16 19:00 67 19 05/09/16 18:00 64 22 98/49 100 Room Air 05/09/16 16:00 Room Air 05/09/16 16:00 36.6 65 22 90/47 100 Room Air 05/09/16 14:30 36.3 61 93/50 05/09/16 14:00 65 18 90/49 100 Room Air 05/09/16 13:30 67 103/37 05/09/16 13:15 60 109/41 05/09/16 13:00 62 94/39 05/09/16 12:45 62 91/37 05/09/16 12:30 65 101/45 05/09/16 12:15 63 90/37 05/09/16 12:00 68 92/51 05/09/16 12:00 Room Air 05/09/16 12:00 36.9 66 19 92/51 100 Room Air 05/09/16 11:45 75 102/42 05/09/16 11:30 74 101/43 05/09/16 11:15 62 95/49 Laboratory Results 24 Hours: Test 05/09/16 23:54 05/10/16 05:55 Hematocrit 24.5 % 25.1 % Hemoglobin 8.6 g/dL 8.6 g/dL White Blood Count 8.44 K/uL Red Blood Count 2.54 M/uL Mean Corpuscular Volume 98.8 fL Mean Corpuscular Hemoglobin 33.9 pg Mean Corpuscular Hemoglobin Concent 34.3 g/dl Platelet Count 95 K/uL Mean Platelet Volume 10.0 fL Neutrophils (%) (Auto) 73.3 % Lymphocytes (%) (Auto) 15.4 % Monocytes (%) (Auto) 7.7 % Eosinophils (%) (Auto) 2.1 % Basophils (%) (Auto) 0.2 % Neutrophils # (Auto) 6.18 K/uL Lymphocytes # (Auto) 1.30 K/uL Monocytes # (Auto) 0.65 K/uL Eosinophils # (Auto) 0.18 K/uL Basophils # (Auto) 0.02 K/uL Prothromb Time International Ratio 1.5 Prothrombin Time 16.0 SECONDS Assessment & Plan Assessment: POD #5 right hip bipolar hemiarthroplasty. HYPOXIA Right proximal humerus fx--closed tx. HYPOTENSION EXTUBATED Plan: HIP STABLE--WBAT RLE OK TO POSITION NEEDED NO NEED FOR SLING UNTIL HE IS OOB Patient getting out of bed with PT today to go to chair. Will have sling on for being out of bed. (1) Altered mental status Chronic (2) Acute respiratory failure Acute (3) End stage renal disease Chronic (4) Anemia Acute (5) Acute on chronic systolic (congestive) heart failure (6) Diabetes Chronic (7) Leukocytosis (8) Constipation (9) Hypothyroid (10) Fall Acute (11) access Inhouse Planning Pain Management: Percocet, Morphine DVT Prophylaxis: TEDs, SCDs, Heparin Drip Discharge Planning Discharge Planning: uncertain
[2016-05-10] MEDS: PANTOprazole INJ 40 MG in SYRINGE 0 ML IV SCH (12:00)
--- NOTE | 2016-05-10 12:13 | Nephrology Progress Note ---
Nephrology Progress Note Date of Service May 10, 2016. Chief Complaint Follow-up for end-stage renal disease on hemodialysis. Subjective Mr. Morrow was seen and examined in his room this morning. He has been overall doing well, sitting up in a chair, had breakfast. blood pressure remained stable. He had HD yesterday, tolerated UF. lefta rm swelling and hematoma improving. Review of Systems A complete review of systems was performed. Pertinent positives are noted above. All other systems are negative. Vital Signs Last 8 Hrs Date Time Temp Pulse Resp B/P Pulse Ox O2 Delivery O2 Flow Rate FiO2 05/10/16 10:00 66 16 113/55 100 Room Air 05/10/16 08:00 36.7 60 18 98/50 100 Room Air 05/10/16 08:00 Room Air 05/10/16 06:00 63 16 100 05/10/16 05:58 62 18 110/71 100 05/10/16 05:00 61 16 100 05/10/16 04:20 100 Room Air 05/10/16 04:15 36.3 61 16 105/51 100 05/10/16 04:00 61 16 100 I & O 24-Hour Column 05/10/16 08:00 Intake Total 830 ml Output Total 2025 ml Balance -1195 ml Last Recorded Weight Weight (Kilograms): 91.200 Physical Exam GENERAL: Elderly male, AAA x 3, pleasant, ill-appearing, not in any distress. NECK: Supple, no JVD. RESPIRATORY: Normal breathing efforts, no accessory muscle use, clear to auscultation bilaterally, no wheezes or rales. CARDIOVASCULAR: S1, S2 normal, rate rhythm regular. EXTREMITY: No lower extremity edema NEURO: speech fluent. PSYCHIATRY: Normal mood and judgment Family History No significant family history Social History Drug Use: none Marital Status: Occupation: retired Laboratory Results Past 24 Hours 05/09/16 23:54 05/10/16 05:55 Red Blood Count 2.54, Mean Corpuscular Volume 98.8, Mean Corpuscular Hemoglobin 33.9, Mean Corpuscular Hemoglobin Concent 34.3, Mean Platelet Volume 10.0, Neutrophils (%) (Auto) 73.3, Lymphocytes (%) (Auto) 15.4, Monocytes (%) (Auto) 7.7, Eosinophils (%) (Auto) 2.1, Basophils (%) (Auto) 0.2, Neutrophils # (Auto) 6.18, Lymphocytes # (Auto) 1.30, Monocytes # (Auto) 0.65, Eosinophils # (Auto) 0.18, Basophils # (Auto) 0.02 05/09/16 23:54 05/10/16 05:55 Test 05/09/16 11:55 05/09/16 16:10 05/09/16 23:54 05/10/16 01:29 Bedside Glucose 84 mg/dl (70-99) 96 mg/dl (70-99) Anion Gap 12.0 mmol/L (3-11) Est Creatinine Clear Calc Drug Dose 22.2 ml/min Estimated GFR () 22.2 Estimated GFR (Non- 19.1 BUN/Creatinine Ratio 6.0 (10-20) Calcium Level 7.6 mg/dl (8.5-10.1) Magnesium Level 2.0 mg/dl (1.8-2.4) Bedside Venous pH 7.44 (7.36-7.41) Bedside Venous pCO2 37 mmHg (38.0-50.0) Bedside Venous pO2 33 mmHg (30-55) Bedside Venous HCO3 25 meq/L (23-28) Bedside Venous Blood Total CO2 26 mEq/l (24-31) Bedside Venous Blood O2 Saturation 68.0 % (70-80) Bedside Venous Blood Base Excess 1.0 meq/L Test 05/10/16 05:55 05/10/16 05:59 White Blood Count 8.44 K/uL (4.8-10.8) Red Blood Count 2.54 M/uL (4.7-6.1) Hemoglobin 8.6 g/dL (14.0-18.0) Hematocrit 25.1 % (42-52) Mean Corpuscular Volume 98.8 fL (80-100) Mean Corpuscular Hemoglobin 33.9 pg (25-34) Mean Corpuscular Hemoglobin Concent 34.3 g/dl (32-36) Platelet Count 95 K/uL (130-400) Mean Platelet Volume 10.0 fL (7.4-10.4) Neutrophils (%) (Auto) 73.3 % Lymphocytes (%) (Auto) 15.4 % Monocytes (%) (Auto) 7.7 % Eosinophils (%) (Auto) 2.1 % Basophils (%) (Auto) 0.2 % Neutrophils # (Auto) 6.18 K/uL (1.4-6.5) Lymphocytes # (Auto) 1.30 K/uL (1.2-3.4) Monocytes # (Auto) 0.65 K/uL (0.11-0.59) Eosinophils # (Auto) 0.18 K/uL (0-0.5) Basophils # (Auto) 0.02 K/uL (0-0.2) RDW Standard Deviation 62.4 fL (36.4-46.3) RDW Coefficient of Variation 18.1 % (11.5-14.5) Immature Granulocyte % (Auto) 1.3 % Immature Granulocyte # (Auto) 0.11 K/uL (0.00-0.02) Nucleated RBC Absolute Count (auto) 0.09 K/uL (0-0) Nucleated Red Blood Cells % 1.1 % Polychromasia 1+ Prothrombin Time 16.0 SECONDS (9.0-12.0) Prothromb Time International Ratio 1.5 (0.9-1.1) Activated Partial Thromboplast Time 46.2 SECONDS (21.0-31.0) Partial Thromboplastin Ratio 1.8 Anion Gap 12.0 mmol/L (3-11) Est Creatinine Clear Calc Drug Dose 19.5 ml/min Estimated GFR () 19.0 Estimated GFR (Non- 16.4 BUN/Creatinine Ratio 6.2 (10-20) Calcium Level 7.4 mg/dl (8.5-10.1) Hepatitis B Surface Antigen NEG (NEG) Hepatitis B Surface Antibody POS Bedside Glucose 104 mg/dl (70-99) Allergies Coded Allergies: No Known Allergies (Unverified , 04/23/16) Medications Current Inpatient Medications Medications (Trade) Dose Ordered Sig/Summer Route Start Time Stop Time Status Last Admin Dose Admin Acetaminophen (Tylenol Tab) 650 mg Q4H PRN PO 05/03/16 03:30 06/02/16 03:29 Polyethylene (Miralax Powder Packet) 17 gm DAILY PRN PO 05/03/16 03:30 06/02/16 03:29 05/07/16 10:01 17 GM Ondansetron HCl (Zofran Inj) 4 mg Q6H PRN IV 05/03/16 03:30 06/02/16 03:29 05/08/16 10:19 4 MG Atorvastatin Calcium (Lipitor Tab) 80 mg QAM PO 05/03/16 09:00 06/02/16 08:59 05/10/16 08:10 80 MG Levothyroxine Sodium (Synthroid Tab) 150 mcg DAILYBB PO 05/03/16 06:00 06/02/16 05:59 05/10/16 05:42 150 MCG Travoprost (Travatan Z) 1 drops HS OP 05/03/16 21:00 06/02/16 20:59 05/09/16 19:45 1 DROPS Glucose (Glucose 40% Gel) 15-30 GRAMS 15 GRAMS... UD PRN PO 05/03/16 06:00 06/02/16 05:59 Glucose (Glucose Chew Tab) 4-8 Tablets 4 Tabl... UD PRN PO 05/03/16 06:00 06/02/16 05:59 Dextrose (Dextrose 50% 50ML Syringe) 25-50ML OF 50% DW IV FOR... UD PRN IV 05/03/16 06:00 06/02/16 05:59 Glucagon (Glucagon Inj) 1 mg UD PRN SQ 05/03/16 06:00 06/02/16 05:59 Brimonidine/ Timolol (Combigan 0.2%/ 0.5% Oph Solution) 1 drop BID OP 05/04/16 21:00 06/03/16 20:59 05/10/16 08:11 1 DROP Miscellaneous Information 1 ea 1 ea UD PRN N/A 05/05/16 16:15 06/04/16 16:14 Heparin Sodium/ Dextrose 500 ml @ 17 mls/hr Q24H PRN IV 05/05/16 19:00 06/04/16 18:59 05/10/16 08:09 17 MLS/HR Pantoprazole Sodium/Syringe (Protonix Inj/ Syringe) 10 ml @ 5 mls/min DAILY@11 IV 05/06/16 11:00 06/05/16 10:59 05/09/16 14:32 5 MLS/MIN Polyethylene 17 gm 17 gm DAILY PO 05/08/16 09:00 06/07/16 08:59 05/10/16 08:10 17 GM Acetaminophen/ Empty Bag (Ofirmev IV/ Empty Iv Bag 100ml) 65 ml @ 260 mls/hr Q6H PRN IV 05/08/16 09:15 06/07/16 09:14 05/09/16 15:15 260 MLS/HR Warfarin Sodium (Coumadin Tab) 2.5 mg DAILY@16 PO 05/09/16 16:00 06/08/16 15:59 05/09/16 16:37 2.5 MG Calcium Carbonate (Tums Chew Tab) 500 mg AC PO 05/09/16 11:00 06/08/16 10:59 05/10/16 05:42 500 MG Insulin Aspart SLIDING SCALE G... BIDM SC 05/10/16 16:30 06/09/16 16:29 Cefepime HCl 1000 mg/Dextrose 111.3 ml @ 222.6 mls/ hr TODAY@1400 ONCE IV 05/10/16 14:00 05/10/16 14:29 Cefepime HCl/ Dextrose (Maxipime IV/D5 100ml) 105.65 ml @ 222.6 mls/hr DAILY@1400 IV 05/11/16 14:00 05/17/16 13:59 Docusate Sodium (coLACE CAP) 100 mg BID PO 05/10/16 21:00 06/09/16 20:59 Allopurinol (Zyloprim Tab) 150 mg DAILY PO 05/11/16 09:00 06/10/16 08:59 Carvedilol (Coreg Tab) 3.125 mg BID PO 05/10/16 21:00 06/09/16 20:59 Multivitamins/ Minerals (Multivitamin W/ Minerals Tab) 1 tab QAM PO 05/11/16 09:00 06/10/16 08:59 Oxycodone/ Acetaminophen (Percocet 5-325MG Tab) 1 tab Q6H PRN PO 05/10/16 10:30 05/24/16 10:29 Impression (1) End stage renal disease (2) Anemia (3) Closed fracture of right proximal humerus Mr. Morrow is a 81-year-old gentlemen with end-stage renal disease on hemodialysis, admitted to the hospital after he had a fall at home and had hip fracture. He had surgery for hip fracture, postoperative hospital course complicated by respiratory failure requiring intubation. He was extubated yesterday successfully, currently doing well with nasal cannula oxygen saturating well. On hemodialysis twice a week. Recommendations -- had hemodialysis, had 2 L UF but he is above his EDW and continues to have pulmonary congestion, but BP, electrolyte stable, remain asymptomatic, has not been requiring O2 after extubation. --plan for next HD RX tomorrow and UF as tolerated --continue on renal diet --Avoid IV fluid --dose medications for GFR less than 10 --start on tums with meal as phosphate binders once patient starts taking orally Will follow
[2016-05-10] MEDS ORDERED: CEFEPIME IV 1,000 MG in DEXTROSE 5% 100ML IV ONE (14:00)
--- NOTE | 2016-05-10 15:11 | CRITICAL CARE PROGRESS NOTE ---
DATE: 05/10/2016 GENERAL INFORMATION: The patient is an 81-year-old gentleman admitted to the hospital on May 02 after falling at home and sustaining a right humeral fracture and right femoral neck fracture. He has multiple medical problems such as ischemic cardiomyopathy, ejection fraction 20%-25%, atrial fibrillation, end-stage renal disease and diabetes mellitus. He was taken off his Coumadin on admission to the hospital and underwent surgery to repair the right femoral neck fracture by cementing on May 05. This was done under general anesthesia and in the PACU, he was extubated, but started to drop his saturations. He was hypotensive or in PEA - lost a pulse and a code blue was called. He was reintubated either prior to the code blue or during the first portion of it. He was successfully resuscitated, with 2mg of epinephrine but was persistently hypoxemic and had little to no breath sounds on the left side. He was transferred to the intensive care unit, where bronchoscopy was done and showed no mucous plugging and there was no pneumothorax on chest x-ray. He had another cardiac arrest in the intensive care unit, which lasted approximately 2 minutes. A stat echocardiogram showed no pericardial effusion and EF 20-25% which was unchanged. He was also placed on dobutamine and levophed on arrival to the ICU. He was persistenly hypoxemic with an oxygen saturation in the 70s and started to improve after he was placed on pressure control ventilation. His lungs were not stiff and his peep was 16. He underwent CT scan of the chest and was negative for pulmonary embolism although was not an optimal study. He was started on heparin infusion empirically as he was also in atrial fibrillation. He never developed a petechial rash that would indicate he might have had a fat embolus, He was maintained on the ventilator initially with a PEEP of 16. The sputum Gram stain showed gram negative rods which was identified as Acenitobacter yesterday. He also received 2 units of packed red blood cells during the time in the intensive care unit. His ejection fraction is known to be 20%- 25% and he has end-stage renal disease. He had several sessions of dialysis with volume removal as well. He was extubated on May 08. He is being seen by the neurology service for possible seizures after his anoxic immediately after code blue. The Keppra was discontinued and followup CT of the brain is still pending. Neurologically, he has done relatively well at all things considered. He has also been weaned off his Levophed and dobutamine. Last night, he was delirious and confused. Chest x-ray showed a worsening right lower lobe infiltrate and he was given Levaquin and gentamicin for his Acinetobacter. He is on room air and does not have any specific complaints. He is not coughing and has been using BiPAP 1 hour t.i.d. and at bedtime to help bridge him off the ventilator and I do not think he has a history of obstructive sleep apnea. He is having bowel movements and tolerating a diet, although his appetite is not great. He is out of bed to a chair today. PHYSICAL EXAMINATION: VITAL SIGNS: Temperature 36.7, heart rate 60, respiratory rate 16-18, blood pressure 98-110/50s-70s, and oxygen saturation 100% on room air. 24-hour fluid balance is negative 884 mL. GENERAL: He is lying in bed and will not open his eyes unless I asked him to. Even if I asked him to open his eyes, he will close them eventually, although he still talks to me. NEUROLOGIC: He moves all 4 extremities and is oriented to person, place, and month. He is diffusely weak. LUNGS: Decreased breath sounds throughout. No rales, rhonchi or wheezes. HEART: Irregular. No murmur. CHEST: Pacemaker battery is visible and palpable in the left infraclavicular region. ABDOMEN: Soft, nondistended, and nontender. Active bowel sounds. EXTREMITIES: With 1-2+ left upper extremity edema. He has a scab in his antecubital fossa. Right upper extremity has minimal edema. Bilateral lower extremities are without edema. Left heel has a large blister. LABORATORY DATA: White blood cell count 8.44, hemoglobin 8.6, hematocrit 25.1 and platelets 95. VBG from last night, pH 7.44, pCO2 is 37, pO2 is 33, and HCO3 of 25. Sodium 138, potassium 3.5, chloride 99, CO2 of 27, BUN 20, creatinine 3.3, glucose 99, and calcium 7.4. INR 1.5 and PTT 46.2. MEDICATIONS AND INFUSIONS: Tylenol, allopurinol, Lipitor, eyedrops, Tums, carvedilol, cefepime day #1, Colace, heparin infusion, insulin sliding scale, levothyroxine, multivitamin with minerals, Zofran, Percocet, Protonix, MiraLax, and Coumadin. IMAGING STUDIES: Portable chest x-ray from this morning was reviewed and shows cardiomegaly with pulmonary vascular congestion, which is mild. The congestion may be worse compared to yesterday. Left shows emphysema. IMPRESSION: 1. Postoperative acute hypoxemic respiratory failure, likely secondary to aspiration and/or possibly fat embolus. Lower extremity Dopplers were negative as were CT scan of the chest for PE. He is now on room air. 2. Postop day #5 status post cementing of the right hip fracture. 3. Right humerus fracture, status post fall. 4. Acinetobacter pneumonia, now on cefepime day #1. It is pansensitive and he has been on Zosyn for 4 days. His white blood cell count has remained normal over the past several days as well. 5. Ischemic cardiomyopathy, ejection fraction 20%-25%. We have been holding his cardiac medications due to the need for vasopressors and dobutamine. I have started to add back some of his home cardiac medications. 6. Agitated delirium last night, multifactorial. 7. Status post cardiac arrest x2 on postop day 0. 8. Chronic atrial fibrillation and a history of pacemaker and AICD. 9. End-stage renal disease. 10. Diabetes mellitus with variable blood sugars. 11. History of hypothyroidism. 12. Anemia, stable. 13. S/P L IJ triple lumen catheter on 05/06/2016 PLAN: NEUROLOGIC: Avoid sedatives if at all possible. Treat pain preferably with Tylenol. He does have Percocet also. Continue to watch for any seizure activity and CT brain once he is a bit more stable. This will not change his management at the present time. Neurology has suggested potentially a followup visit in our outpatient clinic for more definitive testing as to whether or not he may have suffered an anoxic injury. PULMONARY: Continue BiPAP 1 hour q.i.d. and at bedtime. Continue bronchodilators and Cefepime. CARDIOVASCULAR: I have resumed his Coreg, although at a very small dose at 3.125 mg b.i.d. This can be increased based on his blood pressure. RENAL: I think he would benefit from some more volume removal. The nephrology service will evaluate that tomorrow. For today, I do not think he needs dialysis. Replete electrolytes as needed. He does have a newly placed fistula in the left upper extremity as of May 04. INFECTIOUS DISEASE: Acinetobacter in his sputum and has not had a white blood cell count elevation or a fever. He clearly was producing some sputum. I have changed him to cefepime and he has received 4 days of Zosyn as well as 1 dose of Levaquin and a dose of gentamicin. Continue the cefepime for 7 days. ENDOCRINE: He is only on a sliding scale insulin presently. The pharmacy has been helping to manage his diabetic medications. GASTROINTESTINAL: Appetite is poor, he has some Boost pudding b.i.d. That may not help his blood sugars, but I would like to see him eat something. There is a dietary consult in place. Continue Protonix for DVT prophylaxis. Continue Colace and MiraLax. HEMATOLOGY: He is status post 2 units packed red blood cells and is on a heparin infusion for atrial fibrillation and what may have been a pulmonary embolism. Coumadin has been resumed. MISCELLANEOUS: He is getting physical therapy and occupational therapy. He should be wearing a sling on his right arm when he is out of bed. His disposition is uncertain. At this point, I do not think he could care for himself without more support. He may need to be placed and/or he definitely needs to go to rehab for a period of time. His and son were updated in detail today. Please call me with any questions or concerns. 60 minutes of critical care time. [facility]
[2016-05-10 15:48] LABS: PARTIAL THROMBOPLASTIN RATIO 2.9
[2016-05-10] MEDS: WARFARIN SOD 2.5 MG TAB PO SCH (16:35)
[2016-05-10] MEDS: TRAVOPROST Z 0.004% OPH SOLN 2.5 ML BTL OP SCH (19:46)
[2016-05-10] MEDS: DOCUSATE SODIUM 100 MG CAP PO SCH (19:47)
[2016-05-10] MEDS: CARVEDILOL 3.125 MG TAB PO SCH (19:47)
[2016-05-10] MEDS: ACETAMINOPHEN 325 MG TAB PO PRN (19:49)
[2016-05-10 22:33] LABS: PARTIAL THROMBOPLASTIN RATIO 2.2
[2016-05-11] VITALS (24 sets, daily range): BP systolic 92–137; BP diastolic 37–73; PULSE 57–69; TEMP 36.4–37.2; O2SAT 92–100
[2016-05-11 05:39] LABS: BASO % 0.3 %; BASO ABS # 0.03 K/uL (0-0.2); COMPLETE YES; HEMATOCRIT 25.7 % (42-52); IG% 4.1 %; LYMPH % 18.7 %; LYMPH ABS # 1.61 K/uL (1.2-3.4); MEAN CELL VOLUME 97.3 fL (80-100); MEAN CORPUSCULAR HEMOGLOBIN 34.1 pg (25-34); MEAN PLATELET VOLUME 9.8 fL (7.4-10.4); MONO % 9.6 %; NEUT % 64.3 %; PLATELET COUNT 111 K/uL (130-400); RED BLOOD COUNT 2.64 M/uL (4.7-6.1); WHITE BLOOD COUNT 8.63 K/uL (4.8-10.8)
[2016-05-11] MEDS: LEVOTHYROXINE 150 MCG TAB PO SCH (05:55)
[2016-05-11 06:08] LABS: INR 2.2 (0.9-1.1); PARTIAL THROMBOPLASTIN RATIO 2.1; PROTHROMBIN TIME (PATIENT) 24.4 SECONDS (9.0-12.0)
[2016-05-11 06:23] LABS: BUN/CREATININE RATIO 6.9 (10-20); CALCIUM 7.6 mg/dl (8.5-10.1); CREATININE 4.5 mg/dl (0.60-1.40); MAGNESIUM 2.1 mg/dl (1.8-2.4); PHOSPHORUS 3.5 mg/dl (2.5-4.9); POTASSIUM 3.4 mmol/L (3.5-5.1)
[2016-05-11] MEDS: INSULIN ASPART 100 UNITS/ML 3 ML PEN SC SCH ×2 (07:30→16:45)
[2016-05-11] MEDS: ATORVASTATIN 40 MG TAB PO SCH (07:53)
[2016-05-11] MEDS: POLYETHYLENE (MIRALAX) 17 GM PACK PO SCH (07:53)
[2016-05-11] MEDS: CARVEDILOL 3.125 MG TAB PO SCH ×2 (07:54→20:14)
[2016-05-11] MEDS: CALCIUM CARBONATE 500 MG CHEWABLE PO SCH ×3 (07:54→16:24)
[2016-05-11] MEDS: BRIMONIDINE TARTRATE-TIMOLOL M 1 DROP BTL OP SCH ×2 (07:55→20:18)
[2016-05-11] MEDS: CEROVITE ADV FORMULA TAB PO SCH (07:59)
[2016-05-11] MEDS: DOCUSATE SODIUM 100 MG CAP PO SCH ×2 (07:59→20:14)
[2016-05-11] MEDS: ALLOPURINOL 100 MG TAB PO SCH (07:59)
--- NOTE | 2016-05-11 10:14 | NEPHROLOGY PROGRESS NOTE ---
DATE: 05/11/2016 SUBJECTIVE: Mr. Morrow says that he is doing fair. He denies having any significant pain in his right hip or his right arm. He denies having chest pain or shortness of breath. His appetite is only fair. Since last seen by me on May 08, he has been extubated and pressors have been discontinued. He has remained stable and appears to be making progress. He denies headache, stiff neck or any lateralizing weakness. OBJECTIVE: GENERAL: On physical exam, Mr. Morrow appears relatively well. He seems oriented in 3 spheres. VITAL SIGNS: His blood pressure 122/37, his pulse 69 and slightly irregular. Respiratory rate is 20, his pulse ox 97% on room air. SKIN: Shows minimally diminished skin turgor. He has ecchymoses involving his left arm, particularly in the area of the left antecubital fossa extending both to the upper arm and the forearm. He has some ecchymoses of the right upper arm. He has incisions from prior surgeries including a recent incision in the right groin from his hip replacement. He has a tunneled hemodialysis catheter in the right IJ and other intravenous lines in place. LYMPHATICS: Show no palpable lymphadenopathy. HEAD: Normal. EYES: Grossly normal. There is no conjunctival icterus. The ocular fundi were not examined. EARS, NOSE, MOUTH AND THROAT: Unremarkable, but oral mucous membranes seem dry. NECK: Supple. He has minimal jugular venous distention lying at about 45 degrees. He has the IJ catheter on the right side as previously noted and a pacemaker on the left side. I hear no carotid bruit and there is no thyromegaly. CHEST: Clear to auscultation. CARDIAC: Shows a slightly irregular rhythm. S1 and S2 seem normal. There is a soft systolic murmur at the apex radiating to the axilla, as well as a soft systolic murmur at the base radiating toward the neck. ABDOMEN: Nontender. There is no organomegaly or mass. EXTREMITIES: Show changes of venous stasis dermatitis on his lower extremities, as well as dystrophic nail changes. Swelling is noted of both arms, but not involving the legs. Peripheral pulses are markedly diminished and he has bilateral femoral murmurs. NEUROLOGIC: Shows him to be moving all 4 extremities with relatively equal strength. He is aware of light touch in all 4 extremities as well. He has no cranial nerve findings. Pertinent laboratory work from today shows a white count of 8630 with a normal differential. His hemoglobin is 9.0. His hematocrit 25.7. His platelet count 111,000. Clinical chemistries show a sodium of 135, potassium of 3.4, chloride 97, CO2 content 26. His BUN is 31, creatinine 4.50. His blood sugars vary from 104 to 136. His serum calcium is 7.6, phosphate 3.5 and his magnesium 2.1. His prothrombin time today is 24.4 with a PTTR of 2.2. His PTT is 54.7 with a PTTR of 2.1. ASSESSMENT: Mr. Morrow appears to be doing reasonably well at this point. Certainly in comparison to 1 week ago, he has improved dramatically. He is awake, alert, off the ventilator and off pressors. His blood pressure is low. His chest x-ray shows some evidence of pulmonary infiltrates and cardiomegaly consistent with volume overload. However, the remainder of his physical exam does not support that. His skin turgor is somewhat diminished. His oral mucous membranes are dry. His neck veins are not significantly dilated, and he does not have a significant amount of edema except in his upper extremities related to other issues (fracture of his right upper arm and recent surgery for the creation of an AV fistula in his left antecubital fossa). PLAN: Hemodialysis today. We will try to remove about 2 additional liters of fluid, as long as his blood pressure tolerates it. No other intervention for now assuming he remains stable. Plans can be underway for his transfer to [facility]. Obviously, he is going to need significant rehabilitation given the nature of his injuries and subsequent surgery.
[2016-05-11] MEDS: CEFEPIME IV 500 MG in DEXTROSE 5% 100ML 100 ML IV SCH (14:44)
[2016-05-11] MEDS: PANTOprazole SOD 40 MG TAB PO SCH (14:45)
--- NOTE | 2016-05-11 14:46 | Discharge Instructions ---
Discharge Instructions Admission Reason for Admission: Closed Fracture Of Right Proximal Humerus Discharge Discharge Diagnosis / Problem: right CAIT, direct anterior for fracture Discharge Goals Goal(s): Decrease discomfort, Improve function, Increase independence Activity Recommendations Activity Limitations: per Instructions/Follow-up section ACTIVITY RECOMMENDATIONS: SELF CARE INSTRUCTIONS AFTER TOTAL HIP REPLACEMENT : Direct Anterior Approach Until the incision and soft tissues around your hip have healed, there is a possibility that the hip prosthesis could dislocate. A. Hip flexion ( Up & Down out of chair or steps ) may be difficult. This is normal. B. Numbness in front of the thigh is also normal for a few weeks. C. Use hand rails when walking on stairs. D. Wear low heeled shoes with non-slip soles. E. Be sure that your floors are free of things that could trip you - throw rugs , electrical cords, small objects. Avoid wet and waxed floors, especially with crutches and canes. F. Try to walk several times a day with rest periods between. G. Continue with all the exercises taught to you in the hospital. Again, make walking a part of your daily routine. SPECIAL CARE INSTRUCTIONS: VERY IMPORTANT TO READ AND REVIEW A. You may still be at risk for phlebitis and blood clots. 1. Wear surgical stockings (SHEY hose) for 2 weeks after surgery to improve circulation and reduce swelling. 2. Take Aspirin 81mg twice daily for 4 weeks or as directed by your doctor. This is your blood thinner. 3. High risk patients may be prescribed a stronger blood thinner if necessary. 4. If you are on Coumadin normally, your family doctor/fermentologist should monitor your blood work. Expect a phone call the day of or the day after bloodwork is drawn to adjust your dosage. B. You must take antibiotics before having dental work, bladder, bowel and other surgery. Your doctor will provide you with a permanent card to carry describing precautions. C. Call [facility] if you have a fever, redness or swelling around the incision, cloudy drainage from incision, or sudden increase in pain in your hip, not relieved by your regular pain medication. D. Please call the office at if you have any concerns or questions about your operation or recovery. * YOU MAY SHOWER, NO TUB BATHS UNTIL CLEARED BY YOUR DOCTOR. - Keep an extra close eye on the top portion of your incision. Be sure to keep clean & dry. * WEAR SHEY HOSE 20 HOURS PER DAY FOR 2 WEEKS. * YOU MAY PROGRESS FROM A WALKER, TO A CANE, TO INDEPENDENT AT YOUR OWN PACE. * MOST PATIENTS WILL HAVE HOME NURSING FOR THERAPY. IF YOU DECIDE TO DO OUTPATIENT PHYSICAL THERAPY, PLEASE SCHEDULE THIS 3 TIMES PER WEEK. * DERMABOND Prineo- This is a mesh tape dressing that is covered with glue. It should remain in place until the incision is properly healed, usually 10-14 days. This dressing is designed to naturally slough off. You may trim the excess mesh tape as it peels off. Incision may be briefly wet in a shower. Dry immediately by blotting with a clean, dry towel. Do not bath or swim until instructed by your doctor. Do not scratch, rub, or pick at the dressing. Do not apply any topical ointments or lotions until dressing is completely removed and/or instructed by your doctor. There may be a small piece of suture material at one end of your incision. Do not pull or trim this. If it is bothersome or catching on clothing, you may cover it with a band-aid. FOLLOW UP VISIT: If appointment is not already scheduled: Please call [facility] to make a follow-up appointment for 2 weeks after your surgery at . . Current Hospital Diet Patient's current hospital diet: Renal Diet, Diabetes Type 2 Diet Discharge Diet Recommended Diet: AHA Diet (Heart Healthy) Procedures Procedures Performed: Right Bipolar Hip Prosthesis Direct Anterior Approach-Cemented Pending Studies Studies pending at discharge: no Medical Emergencies . Who to Call and When: Medical Emergencies: If at any time you feel your situation is an emergency, please call 911 immediately. . Non-Emergent Contact Non-Emergency issues call your: Primary Care Provider . "Provider Documentation" section prepared by Lita Martinez. VTE Core Measure Inpt VTE Proph given/why not?: Other Anticoagulation, T.E.D. Stockings, SCD's
--- NOTE | 2016-05-11 14:49 | Orthopedic Progress Note ---
Orthopedic Progress Note Date of Service May 11, 2016. Subjective Post OP Day: 5 Reports: calf pain, feeling well, Denies: SOB, chest pain, nausea / vomiting Objective calves soft nontender, N/V intact, incision C/D/I, toes mobile Date Time Temp Pulse Resp B/P Pulse Ox O2 Delivery O2 Flow Rate FiO2 05/11/16 14:04 36.7 59 112/56 05/11/16 13:27 37.2 65 18 137/49 97 Room Air 05/11/16 13:26 Room Air 05/11/16 12:30 59 108/50 05/11/16 12:15 58 108/48 05/11/16 12:00 60 99/50 05/11/16 11:45 60 98/42 05/11/16 11:30 57 107/44 05/11/16 11:15 61 113/46 05/11/16 11:00 59 105/45 05/11/16 10:45 59 115/62 05/11/16 10:30 60 105/49 05/11/16 10:15 59 99/43 05/11/16 10:00 67 95/41 05/11/16 09:45 58 110/45 05/11/16 09:30 58 108/44 05/11/16 09:15 59 98/43 05/11/16 09:00 58 101/46 05/11/16 08:52 36.4 58 93/48 05/11/16 08:00 Room Air 05/11/16 07:42 36.5 69 20 122/37 97 Room Air 05/11/16 04:00 Room Air 05/11/16 03:52 36.4 61 17 115/39 95 Room Air 05/11/16 00:00 36.6 61 20 117/46 96 Room Air 05/10/16 23:59 Room Air 05/10/16 20:00 Room Air 05/10/16 19:43 36.5 61 22 124/52 92 Room Air 05/10/16 16:00 Room Air 05/10/16 15:01 36.4 63 20 97 Laboratory Results 24 Hours: Test 05/11/16 05:20 White Blood Count 8.63 K/uL Red Blood Count 2.64 M/uL Hemoglobin 9.0 g/dL Hematocrit 25.7 % Mean Corpuscular Volume 97.3 fL Mean Corpuscular Hemoglobin 34.1 pg Mean Corpuscular Hemoglobin Concent 35.0 g/dl Platelet Count 111 K/uL Mean Platelet Volume 9.8 fL Neutrophils (%) (Auto) 64.3 % Lymphocytes (%) (Auto) 18.7 % Monocytes (%) (Auto) 9.6 % Eosinophils (%) (Auto) 3.0 % Basophils (%) (Auto) 0.3 % Neutrophils # (Auto) 5.55 K/uL Lymphocytes # (Auto) 1.61 K/uL Monocytes # (Auto) 0.83 K/uL Eosinophils # (Auto) 0.26 K/uL Basophils # (Auto) 0.03 K/uL Prothromb Time International Ratio 2.2 Prothrombin Time 24.4 SECONDS Assessment & Plan Assessment: POD #6 right hip bipolar hemiarthroplasty. HYPOXIA Right proximal humerus fx--closed tx. HYPOTENSION EXTUBATED Plan: HIP STABLE--WBAT RLE OK TO POSITION NEEDED NO NEED FOR SLING UNTIL HE IS OOB Patient getting out of bed with PT today to go to chair. Will have sling on for being out of bed. -ORTHOPEDICALLY STABLE WILL SIGN OFF - FOLLOW UP WITH DR. KIM IN 4 WEEKS [phone] - DA CAIT INSTRUCTIONS ON THE CHART - DC PEPE 10-14 DAYS POST OP -CONT SHEY HOSE - MAY RESUME COUMADIN FOR DVT PROPH. (1) Altered mental status Chronic (2) Acute respiratory failure Acute (3) End stage renal disease Chronic (4) Anemia Acute (5) Acute on chronic systolic (congestive) heart failure (6) Diabetes Chronic (7) Leukocytosis (8) Constipation (9) Hypothyroid (10) Fall Acute (11) access Inhouse Planning Pain Management: Percocet, Morphine DVT Prophylaxis: TEDs, SCDs, Heparin Drip Discharge Planning Discharge Planning: uncertain
--- NOTE | 2016-05-11 14:50 | CARDIOLOGY PROGRESS NOTE ---
DATE: 05/11/2016 HISTORY OF PRESENT ILLNESS: Mr. Morrow is an 81-year-old white male with a history of an Ischemic Cardiomyopathy, LVEF 20%-25%, status post single-chamber AICD in August 2015, CAD with a history of inferolateral CT, chronic systolic CHF, permanent atrial fibrillation, hypertension, hypercholesterolemia, type 2 diabetes mellitus, hypothyroidism and end-stage renal disease on hemodialysis, who was admitted on 05/02/2016 after sustaining a fall, which resulted in a right humeral fracture and a right hip fracture. The patient subsequently underwent surgical repair of right hip fracture. His postoperative course was complicated by hypotension, hypoxemia and acute respiratory failure, requiring intubation. He also sustained an episode of cardiac arrest. The patient is currently being seen in room 209, he offers no complaints. He had dialysis earlier today and tolerated that well. The patient any denies chest pain, heaviness, tightness, pressure, or angina pectoris. He denies any neck, jaw, back, or arm pain. He denies any shortness of breath, orthopnea or PND. He denies any palpitations, tachypalpitations, syncope, or near syncope. No discharges from his defibrillator. PHYSICAL EXAMINATION: VITAL SIGNS: Temperature is 36.7 degrees Celsius, pulse is 59 and slightly irregular, respiratory rate is 16 and unlabored, blood pressure is 112/56 and SpO2 is 97% on room air. GENERAL: The patient is in no acute distress. HEENT: Head is atraumatic and normocephalic. EOMs intact. Sclerae are anicteric. Face is symmetric. No perioral cyanosis. NECK: Without obvious JVD. Jugular venous pressure is just above the clavicle lying at a 45 degree angle. CHEST AND LUNGS: Clear to auscultation throughout all lung slater, no wheezes, rales or rhonchi. CARDIOVASCULAR: S1 and S2 are slightly irregular with a grade 1/6 basal systolic murmur, which radiates to the upper chest and a very faint systolic murmur at left sternal border and apex. No diastolic murmurs appreciated. No gallops or rubs. ABDOMEN: Bowel sounds present. No masses, organomegaly or tenderness. EXTREMITIES: Without edema. Current telemetry monitoring reveals underlying rhythm of atrial fibrillation with intermittent electronic ventricular pacing. Frequent PVCs/ectopy present. LABORATORY DATA: White blood cell count is 8.63, hemoglobin 9.0 g/dL, hematocrit 25.7%, and platelet count is 111,000. INR is 2.2. Sodium is 135 mmol/L, potassium 3.4 mmol/L, BUN is 31 mg/dL, creatinine of 4.50 mg/dL, and random glucose 111 mg/dL. ASSESSMENT: 1. Ischemic Cardiomyopathy, LVEF 20%-25%, status post single chamber AICD. 2. Coronary artery disease. 3. Chronic systolic congestive heart failure. 4. End-stage renal disease, on hemodialysis. 5. Chronic atrial fibrillation with controlled ventricular response rate. 6. No angina pectoris or anginal equivalent symptoms. 7. No overt evidence of congestive heart failure. 8. No signs or symptoms of stroke or mini stroke. 9. Right hip fracture, status post surgical repair. 10. Right humeral fracture. PLAN: 1. The patient remains stable from a cardiac standpoint. 2. Continue Coreg 3.125 mg b.i.d. When blood pressure allows, would recommend titrating this medication. 3. Continue chronic Coumadin anticoagulation. 4. Continue high intensity Lipitor at 80 mg daily. 5. As his INR is therapeutic, could stop heparin drip. 6. No other cardiac recommendations at this time. We will continue to follow. [facility]
[2016-05-11] MEDS: ACETAMINOPHEN 325 MG TAB PO PRN ×2 (15:07→20:14)
[2016-05-11] MEDS ORDERED: NURSING VERBAL MED ORDER ONE (15:15)
[2016-05-11] MEDS: BOOST VANILLA PUDDING CUP PO SCH (16:23)
[2016-05-11] MEDS: WARFARIN SOD 2.5 MG TAB PO SCH (16:24)
[2016-05-11] MEDS ORDERED: HALOPERIDOL 1 MG TAB PO PRN (18:00)
--- NOTE | 2016-05-11 20:14 | Family Medicine Progress Note ---
Progress Note Date of Service May 11, 2016. Subjective Pt evaluation today including: conversation w/ patient, conversation w/ family , physical exam, chart review, lab review, review of studies, review of inpatient medication list Voiding: peraza catheter in place No acute events overnight per nurse. Pt is responsive, communicative. reports he is not quite at baseline mental status and is still "foggy" Pt complains of ongoing Left arm pain mainly at site of fracture. denied cp, sob, palpitation, n/v Constitutional: No chills, No fever Respiratory: No cough, No shortness of breath Cardiovascular: No chest pain, No palpitations Abdomen: No nausea, No pain Musculoskeletal: + problem reported (Left arm pain near site of fracture) Male : No dysuria, No urinary frequency Neurologic: No numbness/tingling Skin: + itch, + rash Medications Current Inpatient Medications Medications (Trade) Dose Ordered Sig/Summer Route Start Time Stop Time Status Last Admin Dose Admin Acetaminophen (Tylenol Tab) 650 mg Q4H PRN PO 05/03/16 03:30 06/02/16 03:29 05/11/16 15:07 650 MG Polyethylene (Miralax Powder Packet) 17 gm DAILY PRN PO 05/03/16 03:30 06/02/16 03:29 05/07/16 10:01 17 GM Ondansetron HCl (Zofran Inj) 4 mg Q6H PRN IV 05/03/16 03:30 06/02/16 03:29 05/08/16 10:19 4 MG Atorvastatin Calcium (Lipitor Tab) 80 mg QAM PO 05/03/16 09:00 06/02/16 08:59 05/11/16 07:53 80 MG Levothyroxine Sodium (Synthroid Tab) 150 mcg DAILYBB PO 05/03/16 06:00 06/02/16 05:59 05/11/16 05:55 150 MCG Travoprost (Travatan Z) 1 drops HS OP 05/03/16 21:00 06/02/16 20:59 05/10/16 19:46 1 DROPS Glucose (Glucose 40% Gel) 15-30 GRAMS 15 GRAMS... UD PRN PO 05/03/16 06:00 06/02/16 05:59 Glucose (Glucose Chew Tab) 4-8 Tablets 4 Tabl... UD PRN PO 05/03/16 06:00 06/02/16 05:59 Dextrose (Dextrose 50% 50ML Syringe) 25-50ML OF 50% DW IV FOR... UD PRN IV 05/03/16 06:00 06/02/16 05:59 Glucagon (Glucagon Inj) 1 mg UD PRN SQ 05/03/16 06:00 06/02/16 05:59 Brimonidine/ Timolol (Combigan 0.2%/ 0.5% Oph Solution) 1 drop BID OP 05/04/16 21:00 06/03/16 20:59 05/11/16 07:55 1 DROP Miscellaneous Information (Consult Glycemic Management Pharmacy) 1 ea UD PRN N/A 05/05/16 16:15 06/04/16 16:14 Polyethylene 17 gm 17 gm DAILY PO 05/08/16 09:00 06/07/16 08:59 05/11/16 07:53 17 GM Acetaminophen/ Empty Bag (Ofirmev IV/ Empty Iv Bag 100ml) 65 ml @ 260 mls/hr Q6H PRN IV 05/08/16 09:15 06/07/16 09:14 05/09/16 15:15 260 MLS/HR Warfarin Sodium (Coumadin Tab) 2.5 mg DAILY@16 PO 05/09/16 16:00 06/08/16 15:59 05/11/16 16:24 2.5 MG Calcium Carbonate (Tums Chew Tab) 500 mg AC PO 05/09/16 11:00 06/08/16 10:59 05/11/16 16:24 500 MG Insulin Aspart SLIDING SCALE G... BIDM SC 05/10/16 16:30 06/09/16 16:29 Cefepime HCl/ Dextrose (Maxipime IV/D5 100ml) 105.65 ml @ 222.6 mls/hr DAILY@1400 IV 05/11/16 14:00 05/17/16 13:59 05/11/16 14:44 222.6 MLS/HR Docusate Sodium (coLACE CAP) 100 mg BID PO 05/10/16 21:00 06/09/16 20:59 05/11/16 07:59 100 MG Allopurinol (Zyloprim Tab) 150 mg DAILY PO 05/11/16 09:00 06/10/16 08:59 05/11/16 07:59 150 MG Carvedilol (Coreg Tab) 3.125 mg BID PO 05/10/16 21:00 06/09/16 20:59 05/11/16 07:54 3.125 MG Multivitamins/ Minerals (Multivitamin W/ Minerals Tab) 1 tab QAM PO 05/11/16 09:00 06/10/16 08:59 05/11/16 07:59 1 TAB Oxycodone/ Acetaminophen (Percocet 5-325MG Tab) 1 tab Q6H PRN PO 05/10/16 10:30 05/24/16 10:29 Pantoprazole Sodium (Protonix Tab) 40 mg QAM PO 05/11/16 09:00 06/10/16 08:59 05/11/16 14:45 40 MG Enteral Nutritional Formula (Boost Pudding) 1 cup BIDM PO 05/11/16 16:45 06/10/16 16:44 05/11/16 16:23 1 CUP Objective Vital Signs Date Time Temp Pulse Resp B/P Pulse Ox O2 Delivery O2 Flow Rate FiO2 05/11/16 16:00 36.8 60 18 134/44 94 05/11/16 16:00 Room Air 05/11/16 14:04 36.7 59 112/56 05/11/16 13:27 37.2 65 18 137/49 97 Room Air 05/11/16 13:26 Room Air 05/11/16 12:30 59 108/50 05/11/16 12:15 58 108/48 05/11/16 12:00 60 99/50 05/11/16 11:45 60 98/42 05/11/16 11:30 57 107/44 05/11/16 11:15 61 113/46 05/11/16 11:00 59 105/45 05/11/16 10:45 59 115/62 05/11/16 10:30 60 105/49 05/11/16 10:15 59 99/43 05/11/16 10:00 67 95/41 05/11/16 09:45 58 110/45 05/11/16 09:30 58 108/44 05/11/16 09:15 59 98/43 05/11/16 09:00 58 101/46 05/11/16 08:52 36.4 58 93/48 05/11/16 08:00 Room Air 05/11/16 07:42 36.5 69 20 122/37 97 Room Air 05/11/16 04:00 Room Air 05/11/16 03:52 36.4 61 17 115/39 95 Room Air 05/11/16 00:00 36.6 61 20 117/46 96 Room Air 05/10/16 23:59 Room Air Physical Exam General Appearance: WD/WN, no apparent distress Eyes: normal inspection, PERRL, EOMI Neck: supple, trachea midline Respiratory/Chest: lungs clear, normal breath sounds, no respiratory distress Cardiovascular: regular rate, rhythm, no murmur Abdomen: normal bowel sounds, non tender, soft Neurologic/Psychiatric: alert, normal mood/affect, oriented x 3 Skin: normal color, warm/dry Laboratory Results Results Past 24 Hours Test 05/10/16 22:05 05/11/16 05:20 05/11/16 06:56 05/11/16 15:59 Range/Units Activated Partial Thromboplast Time 56.4 54.7 21.0-31.0 SECONDS Partial Thromboplastin Ratio 2.2 2.1 White Blood Count 8.63 4.8-10.8 K/uL Red Blood Count 2.64 4.7-6.1 M/uL Hemoglobin 9.0 14.0-18.0 g/dL Hematocrit 25.7 42-52 % Mean Corpuscular Volume 97.3 80-100 fL Mean Corpuscular Hemoglobin 34.1 25-34 pg Mean Corpuscular Hemoglobin Concent 35.0 32-36 g/dl Platelet Count 111 130-400 K/uL Mean Platelet Volume 9.8 7.4-10.4 fL Neutrophils (%) (Auto) 64.3 % Lymphocytes (%) (Auto) 18.7 % Monocytes (%) (Auto) 9.6 % Eosinophils (%) (Auto) 3.0 % Basophils (%) (Auto) 0.3 % Neutrophils # (Auto) 5.55 1.4-6.5 K/uL Lymphocytes # (Auto) 1.61 1.2-3.4 K/uL Monocytes # (Auto) 0.83 0.11-0.59 K/uL Eosinophils # (Auto) 0.26 0-0.5 K/uL Basophils # (Auto) 0.03 0-0.2 K/uL RDW Standard Deviation 60.3 36.4-46.3 fL RDW Coefficient of Variation 17.8 11.5-14.5 % Immature Granulocyte % (Auto) 4.1 % Immature Granulocyte # (Auto) 0.35 0.00-0.02 K/uL Nucleated RBC Absolute Count (auto) 0.16 0-0 K/uL Nucleated Red Blood Cells % 1.8 % Prothrombin Time 24.4 9.0-12.0 SECONDS Prothromb Time International Ratio 2.2 0.9-1.1 Sodium Level 135 136-145 mmol/L Potassium Level 3.4 3.5-5.1 mmol/L Chloride Level 97 98-107 mmol/L Carbon Dioxide Level 26 21-32 mmol/L Anion Gap 12.0 3-11 mmol/L Blood Urea Nitrogen 31 7-18 mg/dl Creatinine 4.50 0.60-1.40 mg/dl Est Creatinine Clear Calc Drug Dose 13.2 ml/min Estimated GFR () 13.0 Estimated GFR (Non- 11.2 BUN/Creatinine Ratio 6.9 10-20 Random Glucose 111 70-99 mg/dl Calcium Level 7.6 8.5-10.1 mg/dl Phosphorus Level 3.5 2.5-4.9 mg/dl Magnesium Level 2.1 1.8-2.4 mg/dl Bedside Glucose 115 116 70-99 mg/dl Assessment and Plan 81 yo M w/ hx of HTN, HLD, Afib,Diabetes , ESRD dialysis , CAD, CHF, p/w L Humerus fx and Left foermoral fx secondary to hx of fall, s/p hemiarthroplasty of the Rt Hip on 05/05/16 with subsequent episodes of cardiac arrest x2 with significant recovery transferred from ICU to telemetry Suspected Aspiration Pneumonia - sputum culture grew ACINETOBACTER BAUMANNII/HAEMOL - started on Gentamycin and Levofloxacin 05/10/16, switched Zosyn 3.375mg IV Q12 x 3 days then switched to Cefepime based on sensitivities - Continue Cefepime (Day 2) F/U repeat CXR S/P Post-operative Cardiac arrest resuscitated x 2 - Pt is responsive, communicative, following commands - Etiology of arrests unknown, fat embolus considered , - Maintain in telemetry Altered Mental Status: -improving per , not quite at baseline mentation, pt aox3 on exam - 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 s/p cardiac arrest -Continue to monitor Hypokalemia -mild 3.4 - F/u PRP after Dialysis Seizures CT head (05/06/2016): Senescent changes with no hemorrhage, mass effect, or evidence of acute territorial ischemia EEG: indicates structural or functional cerebral dysfunction in the right greater than left hemisphere, no electrographic seizures or epileptiform discharges Per Neurology, will need repeat CT in a few days for evaluation of brain injury as MRI contraindicated due to pacemaker Keppra d/c'd per neurology R femoral fracture- s/p Right Hip hemiarthroplasty (Post op day #6), as per nursing protocols, avoiding bending trunk past 90 degrees. Rt humerus fracture- conservative management, pain control ESRD -Had Dialysis Today, management by Dr. Ramirez. Hx of Afib-Rate controlled. Cont2.5mg Warfarin, INR 2.2. Stopped heparin, Cardiology input appreciated CAD - Continue Atorvastatin. - continue to hold Imdur, b-harry, ASA. DM2 - c/w Novolog Q6 F/u PRP, POC glucose Hx of HTN - Norvasc, Imdur, hydralazine held Continue Coreg Hypothyroid - c/w Synthroid 150mcg daily Gout - Continue Allopurinol Constipation (resolved) - Had BM overnight DVT Proph Coumadin, Dispo: Full Code, Telemetry, referred to [place], awaiting approval Continued [facility] stay due to: inadequate oral pain control, home environment unsafe for pt Discharge planning: rehab hospital Resident Tracking Resident Involvement: Resident Care Provided Care Provided: Adult Hospital Medicine Reviewed: Pt Seen/Exam by COLLEEN Oconnor Notes, Labs, RAD History Resident Physician Supervision Note: I interviewed and examined the patient. Discussed with Dr. Sandy and agree with findings and plan as documented in the note. Any exceptions or clarifications are listed here: Pt recovering remarkably after a critical period. Seen on HD today and tolerating well. Appreciate Cardiology recommendations. D/w ST who recommends repeat video swallow, treating for suspected aspiration PNA likely during his code blue x 2, however does have a h/o Zenker's diverticulum repaired previously. Vitals reviewed Irreg irreg with normal rate, 1/6 murmur at RUSB Decreased BS at bases bilat, no wheeze RIJ catheter in place and left IJ CVC in place large ecchymosis on bilateral upper arms, left UE with edema Ext: 1+ pitting edema bilat to knees A/P: 81 yo male with multiple medical problems, here with fall sustaining Right humerus and Right hip fractures, and had cardiac arrest x 2 post-op requiring mechanical ventilation. Continue HD as scheduled, Ortho management appreciated for fractures, needs SNF placement vs acute rehab. Appreciate Cardiology management. Titrate up on Coreg as BP tolerates and consider adding back Imdur, hydralazine when possible. Continue Cefepime for aspiration PNA and video swallow planned. Documented By: Abida Rivero
[2016-05-11] MEDS: TRAVOPROST Z 0.004% OPH SOLN 2.5 ML BTL OP SCH (20:19)
[2016-05-12] VITALS (10 sets, daily range): BP systolic 97–152; BP diastolic 38–92; PULSE 60–81; TEMP 36.4–36.8; O2SAT 92–96
[2016-05-12 06:12] LABS: BASO % 0.4 %; BASO ABS # 0.04 K/uL (0-0.2); EOS % 2.4 %; HEMATOCRIT 28.1 % (42-52); IG% 3.9 %; LYMPH % 13.8 %; LYMPH ABS # 1.53 K/uL (1.2-3.4); MEAN CELL VOLUME 99.3 fL (80-100); MEAN CORPUSCULAR HEMOGLOBIN 33.9 pg (25-34); MEAN CORPUSCULAR HGB CONC 34.2 g/dl (32-36); MEAN PLATELET VOLUME 10.8 fL (7.4-10.4); MONO % 9.5 %; PLATELET COUNT 154 K/uL (130-400); RED BLOOD COUNT 2.83 M/uL (4.7-6.1); WHITE BLOOD COUNT 11.06 K/uL (4.8-10.8)
[2016-05-12 06:19] LABS: INR 2.7 (0.9-1.1); PARTIAL THROMBOPLASTIN RATIO 1.7; PROTHROMBIN TIME (PATIENT) 29.6 SECONDS (9.0-12.0)
[2016-05-12] MEDS: LEVOTHYROXINE 150 MCG TAB PO SCH (06:20)
[2016-05-12] MEDS: CALCIUM CARBONATE 500 MG CHEWABLE PO SCH ×3 (06:20→15:56)
[2016-05-12 06:38] LABS: COMPLETE YES; POLYCHROMASIA 1+
[2016-05-12 06:54] LABS: BUN/CREATININE RATIO 5.7 (10-20); CALCIUM 7.9 mg/dl (8.5-10.1); CREATININE 3.5 mg/dl (0.60-1.40); MAGNESIUM 2.1 mg/dl (1.8-2.4); POTASSIUM 3.4 mmol/L (3.5-5.1)
[2016-05-12] MEDS: POLYETHYLENE (MIRALAX) 17 GM PACK PO SCH (09:00)
[2016-05-12] MEDS: DOCUSATE SODIUM 100 MG CAP PO SCH ×2 (09:00→20:53)
[2016-05-12] MEDS: BOOST VANILLA PUDDING CUP PO SCH ×2 (09:15→15:57)
[2016-05-12] MEDS: BRIMONIDINE TARTRATE-TIMOLOL M 1 DROP BTL OP SCH ×2 (09:25→20:54)
[2016-05-12] MEDS: CARVEDILOL 3.125 MG TAB PO SCH (09:26)
[2016-05-12] MEDS: PANTOprazole SOD 40 MG TAB PO SCH (09:27)
[2016-05-12] MEDS: ALLOPURINOL 100 MG TAB PO SCH (09:27)
[2016-05-12] MEDS: ATORVASTATIN 40 MG TAB PO SCH (09:27)
[2016-05-12] MEDS: CEROVITE ADV FORMULA TAB PO SCH (09:27)
[2016-05-12] MEDS: INSULIN ASPART 100 UNITS/ML 3 ML PEN SC SCH ×2 (09:29→16:45)
--- NOTE | 2016-05-12 09:35 | Pharmacy Progress Note ---
Glycemic: Assessment & Plan Date of Service May 12, 2016. Assessment & Plan The patient is currently receiving 0 units of insulin per day. BSGs ranging 111 - 148 mg/dl over the past 24hrs. Pharmacy will sign - off glycemic consult at this time. Thank you for involving us in this patient's care. Feel free to call us with questions or re-consult the pharmacy glycemic service if the need arises. Thank you. * Basal insulin: NONE * Correctional Insulin: Novolog Correction per scale BIDM Goal Range: Low 140 mg/dL - High 180 mg/dL Correction Factor: 50 mg/dL/unit * Prandial insulin: NONE * Please note that the plan above was derived based on current level of insulin resistance and hospital stress. These recommendations are appropriate for inpatient admission only. Plan of care upon discharge will need to be reassessed to avoid potential outpatient hypo/hyperglycemia.
[2016-05-12] MEDS ORDERED: SODIUM CHLORIDE 0.9% 1000ML 1,000 ML IV PRN (09:47)
[2016-05-12] MEDS ORDERED: HEPARIN SOD (PORCINE) 1000 UNIT/ML 10 ML VIAL IV SCH (10:00)
[2016-05-12] MEDS ORDERED: IRON SUCROSE INJ 100 MG in SYRINGE 0 ML IV ONE (11:00)
[2016-05-12] MEDS ORDERED: EPOETIN ALFA 10,000 UNITS/ML VIAL IV. SCH (11:00)
--- NOTE | 2016-05-12 11:02 | CARDIOLOGY PROGRESS NOTE ---
DATE: 05/12/2016 DATE: 05/12/2016. HISTORY OF PRESENT ILLNESS: Mr. Morrow is an 81-year-old white male with ischemic cardiomyopathy (LVEF 20% to 25%) status post single chamber AICD August 2015, CAD with disease with a history of anterolateral [place], chronic systolic CHF, permanent atrial fibrillation, hypertension, hypercholesterolemia, type 2 diabetes mellitus, hypothyroidism, and end-stage renal disease on hemodialysis, was admitted on 05/02/2016 after sustaining a fall which resulted in right humeral fracture and a right hip fracture. The patient subsequently had surgical repair of his hip fracture, and his postoperative course was complicated by hypotension, hypoxemia, acute respiratory failure which required intubation as well as a cardiac arrest. The patient is currently being seen in room 209. He offers no complaints today. He denies any chest pain, heaviness, tightness, pressure or angina pectoris. Denies any shortness of breath, dyspnea on exertion, orthopnea, or PND. He denies any palpitations, syncope, or near syncope. He continues to receive maintenance dialysis every Wednesday, Wednesday and Wednesday. Yesterday they took an additional 2 liters of fluid off. Today, the patient stood up for the first time since his fall. It required 2 people to help him understand, but he otherwise tolerated that well. PHYSICAL EXAMINATION: VITAL SIGNS: Temperature is 36.7 degrees Celsius, pulse is 75 and irregularly irregular, respiratory rate is 16 and unlabored, blood pressure is 152/92, SPO2 is 94% on room air. I&O's - 1127 mL total over the past 11 hours. Body weight 86.7 kilograms. GENERAL: Chronically ill appearing white male in no acute distress. HEAD, EYES, EARS, NOSE, AND THROAT: Head is atraumatic, normocephalic. EOMs intact. Sclerae are anicteric. Faces symmetric. No perioral cyanosis. Mucous membranes are dry appearing. NECK: Without obvious JVD. Jugular venous pressure is just above the clavicle lying at a 45 degree angle. CHEST AND LUNGS: Clear to auscultation throughout all lung slater, no wheezes, rales or rales. CARDIOVASCULAR: S1 and S2 are slightly irregular, grade 1/6 basal systolic murmur which radiates to the upper chest, grade 1/6 apical systolic murmur which does not appear to radiate. No diastolic murmurs. No obvious gallops or rubs. ABDOMINAL EXAMINATION: Bowel sounds present. No masses, organomegaly or tenderness. EXTREMITIES: Without edema. NEUROLOGIC EXAMINATION: The patient is awake and interactive. Answers questions appropriately. Speech is clear. Current telemetry monitoring reveals atrial fibrillation with controlled ventricular response rate, and relatively frequent PVCs/ventricular ectopy present. LABORATORY DATA: White blood cell count is 11.06. Hemoglobin is 9.6 g/dL, hematocrit 28.1%, platelet count is 154,000. Sodium is 137 mmol/L, potassium 3.4 mmol/L. BUN 20 mg deciliter, creatinine 3.0 mg/dL. Random glucose 120 mg per deciliter. ASSESSMENT: 1. Ischemic Cardiomyopathy with a left ventricular ejection fraction of 20% to 25%, status post single chamber AICD. 2. Coronary artery disease. 3. Chronic systolic congestive heart failure, appears euvolemic to slightly hypovolemic today. 4. End-stage renal disease on hemodialysis. 5. Chronic atrial fibrillation, controlled ventricular response rate. 6. No angina pectoris or anginal equivalent symptoms. 7. No overt signs or symptoms of heart failure. 8. No signs or symptoms of stroke or mini stroke. 9. Right hip fracture status post surgical repair. 10. Right humeral fracture. PLAN: 1. The patient remains in atrial fibrillation. 2. He has not experienced any angina pectoris since being hospitalized. 3. Volume status appears to be euvolemic to slightly hypovolemic. 4. Recommend titrating Coreg to 6.25 mg b.i.d. 5. Continue long-term warfarin for a goal INR of 2.0 to 3.0. 6. Continue Lipitor at current dose. 7. Continue monitoring daily I&O's, body weights. 8. We will continue to follow. MTDD
--- NOTE | 2016-05-12 11:23 | PROGRESS NOTE ---
DATE: 05/12/2016 SUBJECTIVE: Mr. Morrow is doing relatively well. He does complain of some pain in his right arm at the site of his humeral fracture. He denies being short of breath and denies having any chest pain. He says that he is not coughing. His appetite is not particularly good, he is having some difficulty swallowing both foods and his medications. He does not sense that his mouth is particularly dry. He denies that he is having any particular weakness. He denies any other particular neurologic symptoms. OBJECTIVE: GENERAL: On physical exam at the current time he was lying quietly in bed. He is oriented to time, place and person. He does forget much of what has transpired during this hospitalization. VITAL SIGNS: He is afebrile (36.7), his blood pressure 152/92, his pulse 72 with a basically paced rhythm with some occasional extrasystoles. His respiratory rate is 20, his pulse ox 92-94% on room air. SKIN: Shows slightly diminished skin turgor. He has venous stasis dermatitis on his lower extremities but no other rash or infiltrative skin disease. He has scars from prior surgical procedures. He has ecchymoses on his left arm, principally at the site of the recent creation of a left upper arm AV fistula. The ecchymoses extends both to the upper and lower arm. He has less dramatic ecchymoses on his right upper arm. He has a tunneled dialysis catheter in the left IJ, in the right IJ he has a triple lumen catheter. He has a pacemaker palpable beneath the distal left clavicle. LYMPHATICS: Show no palpable lymphadenopathy. HEAD: Normal. EYES: Grossly normal, although he does have some periorbital edema. He has no conjunctival icterus. EARS, NOSE, MOUTH AND THROAT: Are unremarkable. Oral mucous membranes are moist. NECK: Supple. He has the lines in his jugular veins as noted above. There is minimal jugular venous distention with him lying at about 60 degrees. The jugular veins extend about 1-2 cm above the clavicle. CHEST: Shows some rales at the bases bilaterally with some diminished breath sounds. His upper lung slater seen clear. CARDIAC: Shows a regular rhythm with occasional extrasystoles. He has a soft systolic murmur at the base radiating toward the neck as well as a systolic murmur at the apex radiating toward the axilla. ABDOMEN: Nontender. There is no obvious organomegaly or mass. EXTREMITIES: Show the changes of venous stasis dermatitis on his lower extremities as well as dystrophic toenails. Swelling of both arms is noted but that seems to be less than it has been previously. NEUROLOGIC: Unremarkable at the current time except for an equivocal Babinski on the left side. PERTINENT LABORATORY WORK: From today shows a white count of 11,060 with 70% neutrophils, 13.8% lymphocytes, 9.5% monocytes, 2.4% eosinophils and 0.4% basophils. His hemoglobin is 9.6, his hematocrit 28.1, his platelet count 154,000. His prothrombin time is 29.6 with an INR of 2.7. His PTT is 43.3 with a PTTR of 1.7. Clinical chemistries show sodium of 137 mmol/L, potassium 3.4 mmol/L, chloride is 100 mEq/L, and CO2 content 28 mmol/L. His BUN is 20 and his creatinine is 3.50. Blood sugars vary from 115-148. His serum calcium is 7.9 and his magnesium is 2.1, his total bilirubin is 1.3, direct bilirubin 0.5, his AST is 36, his ALT is 15, his alkaline phosphatase 121, his total protein is 6.1 with an albumin of 2.3. ASSESSMENT: Seems clinically stable and slowly making progress. He still does appear to be somewhat volume overloaded, although the fluid may be hard to remove with dialysis because of his low serum albumin. Evidence of volume overload not only includes a slight increase in his blood pressure today but also includes periorbital edema and the puffiness of his arms. PLAN: No change for today. Continue to work with physical therapy. He remains on cefepime for the treatment of his apparent pulmonary infection. We will plan on hemodialysis tomorrow.
[2016-05-12] MEDS: CEFEPIME IV 500 MG in DEXTROSE 5% 100ML 100 ML IV SCH (14:04)
[2016-05-12] MEDS: WARFARIN SOD 2.5 MG TAB PO SCH (15:57)
--- NOTE | 2016-05-12 20:02 | Family Medicine Progress Note ---
Progress Note Date of Service May 12, 2016. Subjective Pt evaluation today including: conversation w/ patient, conversation w/ family , physical exam, chart review, lab review, review of studies, review of inpatient medication list Pain: reports pain at the right arm 4/10, worse on movement PO Intake: adequate Voiding: peraza catheter in place Pt had no complaints other than 4/10 pain at fx site on right arm. denies pain at right hip. denies cough,difficulty swallowing, CP, Sob, N/V he reports he is eating well. + Bowel movements Constitutional: No chills, No fever ENT: No trouble swallowing Respiratory: No cough, No shortness of breath Cardiovascular: No chest pain, No palpitations Musculoskeletal: + problem reported (4/10 pain in the right arms near site of surgery) Skin: No itch, No rash Medications Current Inpatient Medications Medications (Trade) Dose Ordered Sig/Summer Route Start Time Stop Time Status Last Admin Dose Admin Acetaminophen (Tylenol Tab) 650 mg Q4H PRN PO 05/03/16 03:30 06/02/16 03:29 05/11/16 20:14 650 MG Polyethylene (Miralax Powder Packet) 17 gm DAILY PRN PO 05/03/16 03:30 06/02/16 03:29 05/07/16 10:01 17 GM Ondansetron HCl (Zofran Inj) 4 mg Q6H PRN IV 05/03/16 03:30 06/02/16 03:29 05/08/16 10:19 4 MG Atorvastatin Calcium (Lipitor Tab) 80 mg QAM PO 05/03/16 09:00 06/02/16 08:59 05/12/16 09:27 80 MG Levothyroxine Sodium (Synthroid Tab) 150 mcg DAILYBB PO 05/03/16 06:00 06/02/16 05:59 05/12/16 06:20 150 MCG Travoprost (Travatan Z) 1 drops HS OP 05/03/16 21:00 06/02/16 20:59 05/11/16 20:19 1 DROPS Glucose (Glucose 40% Gel) 15-30 GRAMS 15 GRAMS... UD PRN PO 05/03/16 06:00 06/02/16 05:59 Glucose (Glucose Chew Tab) 4-8 Tablets 4 Tabl... UD PRN PO 05/03/16 06:00 06/02/16 05:59 Dextrose (Dextrose 50% 50ML Syringe) 25-50ML OF 50% DW IV FOR... UD PRN IV 05/03/16 06:00 06/02/16 05:59 Glucagon (Glucagon Inj) 1 mg UD PRN SQ 05/03/16 06:00 06/02/16 05:59 Brimonidine/ Timolol (Combigan 0.2%/ 0.5% Oph Solution) 1 drop BID OP 05/04/16 21:00 06/03/16 20:59 05/12/16 09:25 1 DROP Polyethylene 17 gm 17 gm DAILY PO 05/08/16 09:00 06/07/16 08:59 05/11/16 07:53 17 GM Acetaminophen/ Empty Bag (Ofirmev IV/ Empty Iv Bag 100ml) 65 ml @ 260 mls/hr Q6H PRN IV 05/08/16 09:15 06/07/16 09:14 05/09/16 15:15 260 MLS/HR Warfarin Sodium (Coumadin Tab) 2.5 mg DAILY@16 PO 05/09/16 16:00 06/08/16 15:59 05/11/16 16:24 2.5 MG Calcium Carbonate (Tums Chew Tab) 500 mg AC PO 05/09/16 11:00 06/08/16 10:59 05/12/16 06:20 500 MG Insulin Aspart SLIDING SCALE G... BIDM SC 05/10/16 16:30 06/09/16 16:29 Cefepime HCl/ Dextrose (Maxipime IV/D5 100ml) 105.65 ml @ 222.6 mls/hr DAILY@1400 IV 05/11/16 14:00 05/17/16 13:59 05/11/16 14:44 222.6 MLS/HR Docusate Sodium (coLACE CAP) 100 mg BID PO 05/10/16 21:00 06/09/16 20:59 05/11/16 20:14 100 MG Allopurinol (Zyloprim Tab) 150 mg DAILY PO 05/11/16 09:00 06/10/16 08:59 05/12/16 09:27 150 MG Multivitamins/ Minerals (Multivitamin W/ Minerals Tab) 1 tab QAM PO 05/11/16 09:00 06/10/16 08:59 05/12/16 09:27 1 TAB Oxycodone/ Acetaminophen (Percocet 5-325MG Tab) 1 tab Q6H PRN PO 05/10/16 10:30 05/24/16 10:29 Pantoprazole Sodium (Protonix Tab) 40 mg QAM PO 05/11/16 09:00 06/10/16 08:59 05/12/16 09:27 40 MG Enteral Nutritional Formula (Boost Pudding) 1 cup BIDM PO 05/11/16 16:45 06/10/16 16:44 05/12/16 09:15 1 CUP Epoetin Johnny [id number] units 10,000 units TODAY@1100 IV. 05/12/16 11:00 05/12/16 14:00 Iron Sucrose 100 mg/Syringe 5 ml @ 1 mls/min TODAY@1100 ONCE IV 05/12/16 11:00 05/12/16 11:04 Sodium Chloride (Nss 1000ml) 1,000 ml @ 0 mls/hr Q0M PRN IV 05/12/16 09:47 05/12/16 21:46 Carvedilol (Coreg Tab) 6.25 mg BID PO 05/12/16 21:00 06/11/16 20:59 Objective Vital Signs Date Time Temp Pulse Resp B/P Pulse Ox O2 Delivery O2 Flow Rate FiO2 05/12/16 08:00 Room Air 05/12/16 07:51 36.7 72 20 152/92 94 Room Air 05/12/16 04:00 Room Air 05/12/16 03:58 36.8 81 20 121/57 92 Room Air 05/12/16 00:14 123/48 05/11/16 23:59 Room Air 05/11/16 23:33 36.5 63 20 92/73 92 Room Air 05/11/16 20:42 36.8 60 18 129/54 100 05/11/16 20:00 Room Air 05/11/16 16:00 36.8 60 18 134/44 94 05/11/16 16:00 Room Air 05/11/16 14:04 36.7 59 112/56 05/11/16 13:27 37.2 65 18 137/49 97 Room Air 05/11/16 13:26 Room Air 05/11/16 12:30 59 108/50 05/11/16 12:15 58 108/48 05/11/16 12:00 60 99/50 05/11/16 11:45 60 98/42 05/11/16 11:30 57 107/44 05/11/16 11:15 61 113/46 Physical Exam General Appearance: WD/WN, no apparent distress Eyes: normal inspection, PERRL, EOMI Neck: supple, trachea midline Respiratory/Chest: chest non-tender, lungs clear, normal breath sounds, no respiratory distress Cardiovascular: no murmur, + irregularly irregular Abdomen: normal bowel sounds, non tender, soft Extremities: no pedal edema, no calf tenderness, + pertinent finding (Left arm swelling, echhymoses ( non-functional fistula)) Neurologic/Psychiatric: alert, normal mood/affect, oriented x 3 Notes: RIJ catheter in place and left IJ CVC in place Laboratory Results Results Past 24 Hours Test 05/11/16 15:59 05/11/16 20:28 05/12/16 05:25 05/12/16 06:44 Range/Units Bedside Glucose 116 148 129 70-99 mg/dl White Blood Count 11.06 4.8-10.8 K/uL Red Blood Count 2.83 4.7-6.1 M/uL Hemoglobin 9.6 14.0-18.0 g/dL Hematocrit 28.1 42-52 % Mean Corpuscular Volume 99.3 80-100 fL Mean Corpuscular Hemoglobin 33.9 25-34 pg Mean Corpuscular Hemoglobin Concent 34.2 32-36 g/dl Platelet Count 154 130-400 K/uL Mean Platelet Volume 10.8 7.4-10.4 fL Neutrophils (%) (Auto) 70.0 % Lymphocytes (%) (Auto) 13.8 % Monocytes (%) (Auto) 9.5 % Eosinophils (%) (Auto) 2.4 % Basophils (%) (Auto) 0.4 % Neutrophils # (Auto) 7.74 1.4-6.5 K/uL Lymphocytes # (Auto) 1.53 1.2-3.4 K/uL Monocytes # (Auto) 1.05 0.11-0.59 K/uL Eosinophils # (Auto) 0.27 0-0.5 K/uL Basophils # (Auto) 0.04 0-0.2 K/uL RDW Standard Deviation 61.7 36.4-46.3 fL RDW Coefficient of Variation 18.6 11.5-14.5 % Immature Granulocyte % (Auto) 3.9 % Immature Granulocyte # (Auto) 0.43 0.00-0.02 K/uL Nucleated RBC Absolute Count (auto) 0.28 0-0 K/uL Nucleated Red Blood Cells % 2.5 % Polychromasia 1+ Prothrombin Time 29.6 9.0-12.0 SECONDS Prothromb Time International Ratio 2.7 0.9-1.1 Activated Partial Thromboplast Time 43.3 21.0-31.0 SECONDS Partial Thromboplastin Ratio 1.7 Sodium Level 137 136-145 mmol/L Potassium Level 3.4 3.5-5.1 mmol/L Chloride Level 100 98-107 mmol/L Carbon Dioxide Level 28 21-32 mmol/L Anion Gap 9.0 3-11 mmol/L Blood Urea Nitrogen 20 7-18 mg/dl Creatinine 3.50 0.60-1.40 mg/dl Est Creatinine Clear Calc Drug Dose 17.0 ml/min Estimated GFR () 17.7 Estimated GFR (Non- 15.2 BUN/Creatinine Ratio 5.7 10-20 Random Glucose 115 70-99 mg/dl Calcium Level 7.9 8.5-10.1 mg/dl Magnesium Level 2.1 1.8-2.4 mg/dl Total Bilirubin 1.3 0.2-1 mg/dl Direct Bilirubin 0.5 0-0.2 mg/dl Aspartate Amino Transf (AST/SGOT) 36 15-37 U/L Alanine Aminotransferase (ALT/SGPT) 15 12-78 U/L Alkaline Phosphatase 121 45-117 U/L Total Protein 6.1 6.4-8.2 gm/dl Albumin 2.3 3.4-5.0 gm/dl Assessment and Plan 81 yo M w/ hx of HTN, HLD, Afib,Diabetes , ESRD dialysis , CAD, CHF, p/w Rt Humerus fx and Rt femoral fx secondary to hx of fall, s/p hemiarthroplasty of the Rt Hip on 05/05/16 with subsequent episodes of cardiac arrest x2 with significant recovery transferred from ICU to telemetry Suspected Aspiration Pneumonia - sputum culture grew ACINETOBACTER BAUMANNII/HAEMOL - started on Gentamycin and Levofloxacin 05/10/16, switched Zosyn 3.375mg IV Q12 x 3 days then switched to Cefepime based on sensitivities - Continue Cefepime (Day 3) - F/U video swallowing study report tmr S/P Post-operative Cardiac arrest resuscitated x 2 - Pt is responsive, communicative, following commands - Etiology of arrests unknown, fat embolus considered , - Maintain in telemetry Altered Mental Status: 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 s/p cardiac arrest -improving , near to baseline mentation, pt aox3 on exam -Continue to monitor Leukocytosis -source is likely from suspected Aspiration Pneumonia -Continue to monitor Hypokalemia -mild 3.4 - F/u PRP after Dialysis tmr Seizures CT head (05/06/2016): Senescent changes with no hemorrhage, mass effect, or evidence of acute territorial ischemia EEG: indicates structural or functional cerebral dysfunction in the right greater than left hemisphere, no electrographic seizures or epileptiform discharges Per Neurology, will need repeat CT in a few days for evaluation of brain injury as MRI contraindicated due to pacemaker Blanca d/c'd per neurology R femoral fracture- s/p Right Hip hemiarthroplasty (Post op day #6), as per nursing protocols, avoiding bending trunk past 90 degrees. Rt humerus fracture- conservative management, pain control ESRD Dialysis Tmr, management by Dr. Ramirez. Hx of Afib-Rate controlled. Cont 2.5mg Warfarin, INR 2.2. goal INR of 2.0 to 3.0. Stopped heparin, Cardiology input appreciated CAD - Continue Atorvastatin. - continue to hold Imdur, b-harry, ASA. DM2 - c/w Novolog, Sliding scale F/u PRP, POC glucose Hx of HTN - Norvasc, Imdur, hydralazine held - Per cardiology recommendations: titrating Coreg to 6.25 mg b.i.d. Hypothyroid - c/w Synthroid 150mcg daily Gout - Continue Allopurinol Constipation (resolved) - Had BM overnight DVT Proph Coumadin Dispo: Full Code, Telemetry, referred to [facility], awaiting approval Continued [facility] stay due to: home environment unsafe for pt Discharge planning: custodial facility Resident Tracking Resident Involvement: Resident Care Provided Care Provided: Adult Hospital Medicine Reviewed: Pt Seen/Exam by COLLEEN Oconnor Notes, Labs History Resident Physician Supervision Note: I interviewed and examined the patient. Discussed with Dr. Sandy and agree with findings and plan as documented in the note. Any exceptions or clarifications are listed here: Feeling fairly well. No concerns Vitals reviewed Irreg irreg pulm crackles at bases, otherwise clear R TIJ in place and LIJ CVC in place without surrounding erythema Abd: +BS soft NT ND Ext 1+ pitting edema, chronic venous stasis changes A/P: 81 yo male with multiple medical problems, here with fall sustaining Right humerus and Right hip fractures, and had cardiac arrest x 2 post-op requiring mechanical ventilation. Continue HD as scheduled, Ortho management appreciated for fractures, needs SNF placement vs acute rehab. Appreciate Cardiology management. Titrate up on Coreg as BP tolerates today to 6.25 bid and consider adding back Imdur, hydralazine when possible. Continue Cefepime for aspiration PNA and video swallow planned. Documented By: Abida Rivero
[2016-05-12] MEDS: TRAVOPROST Z 0.004% OPH SOLN 2.5 ML BTL OP SCH (20:54)
[2016-05-12] MEDS: ACETAMINOPHEN 325 MG TAB PO PRN (21:01)
[2016-05-12] MEDS: CARVEDILOL 6.25 MG TAB PO SCH (21:03)
[2016-05-13] VITALS (27 sets, daily range): BP systolic 81–137; BP diastolic 41–79; PULSE 54–72; TEMP 36.4–37; O2SAT 93–98
[2016-05-13] MEDS: LEVOTHYROXINE 150 MCG TAB PO SCH (05:37)
[2016-05-13 06:23] LABS: HEMATOCRIT 29.1 % (42-52); MEAN CELL VOLUME 100.3 fL (80-100); MEAN CORPUSCULAR HEMOGLOBIN 34.5 pg (25-34); MEAN CORPUSCULAR HGB CONC 34.4 g/dl (32-36); MEAN PLATELET VOLUME 10.3 fL (7.4-10.4); PLATELET COUNT 156 K/uL (130-400); WHITE BLOOD COUNT 10.93 K/uL (4.8-10.8)
[2016-05-13 07:03] LABS: BUN/CREATININE RATIO 6.2 (10-20); POTASSIUM 3.6 mmol/L (3.5-5.1)
[2016-05-13] MEDS: BOOST VANILLA PUDDING CUP PO SCH ×2 (07:26→16:45)
[2016-05-13] MEDS: CEROVITE ADV FORMULA TAB PO SCH (07:30)
[2016-05-13] MEDS: CALCIUM CARBONATE 500 MG CHEWABLE PO SCH ×3 (07:30→16:47)
[2016-05-13] MEDS: INSULIN ASPART 100 UNITS/ML 3 ML PEN SC SCH ×2 (07:30→16:43)
[2016-05-13] MEDS: PANTOprazole SOD 40 MG TAB PO SCH (07:30)
[2016-05-13] MEDS: POLYETHYLENE (MIRALAX) 17 GM PACK PO SCH (07:30)
[2016-05-13] MEDS: DOCUSATE SODIUM 100 MG CAP PO SCH ×2 (07:31→20:57)
[2016-05-13] MEDS: ATORVASTATIN 40 MG TAB PO SCH (07:31)
[2016-05-13] MEDS: CARVEDILOL 6.25 MG TAB PO SCH ×2 (07:31→20:58)
[2016-05-13] MEDS: ALLOPURINOL 100 MG TAB PO SCH (07:31)
[2016-05-13] MEDS: BRIMONIDINE TARTRATE-TIMOLOL M 1 DROP BTL OP SCH ×2 (07:32→20:58)
[2016-05-13] MEDS ORDERED: SODIUM CHLORIDE 0.9% 1000ML 1,000 ML IV PRN (08:00)
[2016-05-13] MEDS ORDERED: EPOETIN ALFA 10,000 UNITS/ML VIAL IV. SCH (08:00)
[2016-05-13 09:26] LABS: INR 2.9 (0.9-1.1); PROTHROMBIN TIME (PATIENT) 32.7 SECONDS (9.0-12.0)
[2016-05-13] MEDS ORDERED: IRON SUCROSE INJ 100 MG in SYRINGE 0 ML IV SCH (11:00)
--- NOTE | 2016-05-13 11:20 | NEPHROLOGY PROGRESS NOTE ---
DATE: 05/13/2016 SUBJECTIVE: Mr. Morrow says that he is feeling relatively well. He got out of bed for a brief period yesterday. He had some pain at the operative site/right hip. He was up only for a brief period of time. He has had no chest pain and he has had no shortness of breath. His appetite remains fair at best. He eats slowly. Video swallow is planned for later today or tomorrow. He has no definite symptoms of uremia and no definite symptoms of volume overload at this time. OBJECTIVE: GENERAL: On physical exam, he appears as a chronically ill gentleman, who certainly seems comfortable at the current time. VITAL SIGNS: He is afebrile (37.0), his blood pressure when seen by me on dialysis was 104/48, his pulse 66 and basically regular, although occasional extrasystoles were noted. His respiratory rate was 16 and his pulse ox 98% on room air. SKIN: Shows a minimally diminished skin turgor. He has changes of venous stasis dermatitis on his lower extremities. He has some significant ecchymoses involving the left arm, which appears to be centered around his left antecubital fossa at the site of recent AV fistula surgery. He has a few ecchymoses in the right upper arm. He has changes of chronic venous stasis dermatitis as well. There is a palpable pacemaker beneath the distal left clavicle. He has a central venous catheter in the left IJ. He has a tunneled hemodialysis catheter in the right IJ. He has dystrophic toenail changes. He has scars from prior surgical procedures. LYMPHATICS: Show no palpable lymphadenopathy. HEAD: Normal. EYES: Grossly normal. There is no conjunctival icterus. EARS, NOSE, MOUTH AND THROAT: All are unremarkable. NECK: Supple. Sitting at about 65 degrees. He has no jugular venous distention. There are soft bilateral carotid murmurs. He has no thyromegaly. CHEST: Clear to auscultation, although breath sounds are diminished at the bases. CARDIAC: Shows a basically regular rhythm (? paced). He has a soft systolic murmur at both the apex and base. In the left upper quadrant of his chest, murmurs transmitted from his AV fistula. I hear no gallop sounds. He has no friction rubs. ABDOMEN: Nontender. There is no organomegaly or mass. Bowel sounds are present. I hear no abdominal bruits. EXTREMITIES: Show the venous stasis changes described above as well as dystrophic toenail changes. Peripheral pulses in his lower extremities are markedly diminished and difficult to feel. He has bilateral femoral bruits. NEUROLOGIC: Shows him to be awake, alert and oriented. He is globally weak, but there are no lateralizing changes. PERTINENT LABORATORY WORK: From today shows a white count of 10,930, his hemoglobin 10.0, his hematocrit 29.1, and his platelet count 156,000. His prothrombin time is 32.7 with an INR of 2.9. Clinical chemistries from today show a sodium of 138 mmol/L, potassium 3.6 mmol/L, chlorides 101 mmol/L, and CO2 content 27 mmol/L. His BUN is 31 and creatinine 5.00. His serum calcium is 8.0. His blood sugars vary from 102 to 136. ASSESSMENT: Mr. Morrow continues on the road to recovery after his fall resulting in a fractured humerus and a fractured right hip. He has had a right hip replacement. He had an apparent cardiorespiratory arrest postoperatively. Nonetheless, at the current time, he seems to be doing quite well. PLAN: No changes from the renal perspective. He is being evaluated for [facility]. That would clearly be a better option for him to go to continue with his rehabilitation since dialysis is available on site. Apparently for him to go to [facility], he has to do well with a video swallow, which is scheduled for later today or tomorrow.
--- NOTE | 2016-05-13 13:38 | DIAGNOSTIC IMAGING REPORT ---
SINGLE VIEW CHEST CLINICAL HISTORY: Follow pneumonia. FINDINGS: An AP, portable, upright chest radiograph is compared to study dated 05/10/2016 and correlated with chest CT dated 05/05/2016. The examination is degraded by portable technique and patient rotation. A right internal jugular central venous catheter, a left internal jugular central venous catheter, and the cardiac AICD are unchanged in position. The heart is enlarged and there is atherosclerotic calcification of the thoracic aorta. There is pulmonary vascular congestion and mild interstitial edema. Emphysema and chronic interstitial thickening is similar to previous. Small pleural effusions and right greater than left bibasilar airspace opacities have modestly cleared from 05/10/2016. No pneumothorax is seen. The skeletal structures are osteopenic. Posttraumatic deformity is noted in the right humerus. IMPRESSION: 1. Stable lines and tubes. 2. Cardiomegaly and pulmonary vascular congestion. Mild interstitial edema is observed. This has modestly improved from 05/10/2016. 3. Emphysema. 4. Small pleural effusions and right greater than left bibasilar consolidation. This has modestly cleared from 05/10/2016. Electronically signed by: Sree Zaragoza M.D. 05/13/2016 1:36 PM Dictated Date/Time: 05/13/2016 1:32 PM
[2016-05-13] MEDS: CEFEPIME IV 500 MG in DEXTROSE 5% 100ML 100 ML IV SCH (14:30)
[2016-05-13] MEDS: WARFARIN SOD 2.5 MG TAB PO SCH (16:46)
--- NOTE | 2016-05-13 19:55 | Family Medicine Progress Note ---
Progress Note Date of Service May 13, 2016. Subjective Pt evaluation today including: conversation w/ patient, conversation w/ family , physical exam, chart review, lab review, review of studies Pain: Rt arm pain near site of fx, PO Intake: adequate Voiding: no voiding problems No acute events. reports cough, no cp, sob, n/v, eating well. denies aspiration. tolerating physical therapy. Per Telemetry: Paced in the 60's with some PVC's Constitutional: No chills, No fever Respiratory: + cough, No shortness of breath, No sputum Cardiovascular: No chest pain, No palpitations Abdomen: No constipation, No nausea, No pain, No vomiting Male : No dysuria, No urinary frequency Skin: No itch, No rash Medications Current Inpatient Medications Medications (Trade) Dose Ordered Sig/Summer Route Start Time Stop Time Status Last Admin Dose Admin Acetaminophen (Tylenol Tab) 650 mg Q4H PRN PO 05/03/16 03:30 06/02/16 03:29 05/12/16 21:01 650 MG Polyethylene (Miralax Powder Packet) 17 gm DAILY PRN PO 05/03/16 03:30 06/02/16 03:29 05/07/16 10:01 17 GM Ondansetron HCl (Zofran Inj) 4 mg Q6H PRN IV 05/03/16 03:30 06/02/16 03:29 05/08/16 10:19 4 MG Atorvastatin Calcium (Lipitor Tab) 80 mg QAM PO 05/03/16 09:00 06/02/16 08:59 05/13/16 07:31 80 MG Levothyroxine Sodium (Synthroid Tab) 150 mcg DAILYBB PO 05/03/16 06:00 06/02/16 05:59 05/13/16 05:37 150 MCG Travoprost (Travatan Z) 1 drops HS OP 05/03/16 21:00 06/02/16 20:59 05/12/16 20:54 1 DROPS Glucose (Glucose 40% Gel) 15-30 GRAMS 15 GRAMS... UD PRN PO 05/03/16 06:00 06/02/16 05:59 Glucose (Glucose Chew Tab) 4-8 Tablets 4 Tabl... UD PRN PO 05/03/16 06:00 06/02/16 05:59 Dextrose (Dextrose 50% 50ML Syringe) 25-50ML OF 50% DW IV FOR... UD PRN IV 05/03/16 06:00 06/02/16 05:59 Glucagon (Glucagon Inj) 1 mg UD PRN SQ 05/03/16 06:00 06/02/16 05:59 Brimonidine/ Timolol (Combigan 0.2%/ 0.5% Oph Solution) 1 drop BID OP 05/04/16 21:00 06/03/16 20:59 05/13/16 07:32 1 DROP Polyethylene 17 gm 17 gm DAILY PO 05/08/16 09:00 06/07/16 08:59 05/11/16 07:53 17 GM Acetaminophen/ Empty Bag (Ofirmev IV/ Empty Iv Bag 100ml) 65 ml @ 260 mls/hr Q6H PRN IV 05/08/16 09:15 06/07/16 09:14 05/09/16 15:15 260 MLS/HR Warfarin Sodium (Coumadin Tab) 2.5 mg DAILY@16 PO 05/09/16 16:00 06/08/16 15:59 05/13/16 16:46 2.5 MG Calcium Carbonate (Tums Chew Tab) 500 mg AC PO 05/09/16 11:00 06/08/16 10:59 05/13/16 16:47 500 MG Insulin Aspart SLIDING SCALE G... BIDM SC 05/10/16 16:30 06/09/16 16:29 Cefepime HCl/ Dextrose (Maxipime IV/D5 100ml) 105.65 ml @ 222.6 mls/hr DAILY@1400 IV 05/11/16 14:00 05/17/16 13:59 05/13/16 14:30 222.6 MLS/HR Docusate Sodium (coLACE CAP) 100 mg BID PO 05/10/16 21:00 06/09/16 20:59 05/13/16 07:31 100 MG Allopurinol (Zyloprim Tab) 150 mg DAILY PO 05/11/16 09:00 06/10/16 08:59 05/13/16 07:31 150 MG Multivitamins/ Minerals (Multivitamin W/ Minerals Tab) 1 tab QAM PO 05/11/16 09:00 06/10/16 08:59 05/13/16 07:30 1 TAB Oxycodone/ Acetaminophen (Percocet 5-325MG Tab) 1 tab Q6H PRN PO 05/10/16 10:30 05/24/16 10:29 Pantoprazole Sodium (Protonix Tab) 40 mg QAM PO 05/11/16 09:00 06/10/16 08:59 05/13/16 07:30 40 MG Enteral Nutritional Formula (Boost Pudding) 1 cup BIDM PO 05/11/16 16:45 06/10/16 16:44 05/13/16 16:45 1 CUP Carvedilol 6.25 mg 6.25 mg BID PO 05/12/16 21:00 06/11/16 20:59 05/13/16 07:31 6.25 MG Sodium Chloride (Nss 1000ml) 1,000 ml @ 0 mls/hr Q0M PRN IV 05/13/16 08:00 05/13/16 23:59 Heparin Sodium (Porcine) (Heparin 10 Unit/ ml 5 ml Flush) 5 ml PRN PRN FLUSH 05/13/16 16:30 06/12/16 16:29 Objective Vital Signs Date Time Temp Pulse Resp B/P Pulse Ox O2 Delivery O2 Flow Rate FiO2 05/13/16 16:00 Room Air 05/13/16 15:45 36.7 61 18 115/79 94 05/13/16 14:36 62 16 98/52 05/13/16 13:48 62 14 95/50 05/13/16 13:48 Room Air 05/13/16 13:07 36.5 61 102/53 05/13/16 12:51 61 101/46 05/13/16 12:45 63 101/42 05/13/16 12:30 64 102/43 05/13/16 12:15 64 93/44 05/13/16 12:00 60 106/48 05/13/16 11:45 60 105/45 05/13/16 11:30 62 115/42 05/13/16 11:15 72 92/46 05/13/16 11:00 66 104/47 05/13/16 10:45 60 99/46 05/13/16 10:30 66 104/48 05/13/16 10:15 63 81/41 05/13/16 10:00 64 99/53 05/13/16 09:45 63 118/54 05/13/16 09:30 54 109/51 05/13/16 09:15 66 129/46 05/13/16 09:00 62 104/63 05/13/16 08:46 55 112/56 05/13/16 08:43 Room Air 05/13/16 08:35 37.0 58 123/56 05/13/16 08:00 Room Air 05/13/16 07:19 36.5 65 16 134/73 98 Room Air 05/13/16 04:00 36.5 63 20 137/56 95 Room Air 05/13/16 04:00 Room Air 05/12/16 23:59 Room Air 05/12/16 23:46 36.5 75 20 109/71 93 Room Air 05/12/16 20:47 66 14 105/58 05/12/16 20:00 95 Room Air 05/12/16 19:37 36.6 66 18 97/62 93 Room Air Physical Exam General Appearance: WD/WN, no apparent distress Eyes: normal inspection, PERRL, EOMI Neck: supple, trachea midline Respiratory/Chest: chest non-tender, lungs clear, normal breath sounds Cardiovascular: no murmur, + irregularly irregular Abdomen: normal bowel sounds, non tender, soft Notes: Extremities: no pedal edema, no calf tenderness, + pertinent finding (Left arm swelling, ecchymoses ( non-functional fistula)) Neurologic/Psychiatric: alert, normal mood/affect, oriented x 3 Notes: RIJ catheter in place and left IJ CVC in place Laboratory Results Results Past 24 Hours Test 05/12/16 20:21 05/13/16 06:15 05/13/16 06:51 Range/Units Bedside Glucose 125 102 70-99 mg/dl White Blood Count 10.93 4.8-10.8 K/uL Red Blood Count 2.90 4.7-6.1 M/uL Hemoglobin 10.0 14.0-18.0 g/dL Hematocrit 29.1 42-52 % Mean Corpuscular Volume 100.3 80-100 fL Mean Corpuscular Hemoglobin 34.5 25-34 pg Mean Corpuscular Hemoglobin Concent 34.4 32-36 g/dl RDW Standard Deviation 63.0 36.4-46.3 fL RDW Coefficient of Variation 19.7 11.5-14.5 % Platelet Count 156 130-400 K/uL Mean Platelet Volume 10.3 7.4-10.4 fL Nucleated RBC Absolute Count (auto) 0.29 0-0 K/uL Nucleated Red Blood Cells % 2.6 % Prothrombin Time 32.7 9.0-12.0 SECONDS Prothromb Time International Ratio 2.9 0.9-1.1 Sodium Level 138 136-145 mmol/L Potassium Level 3.6 3.5-5.1 mmol/L Chloride Level 101 98-107 mmol/L Carbon Dioxide Level 27 21-32 mmol/L Anion Gap 10.0 3-11 mmol/L Blood Urea Nitrogen 31 7-18 mg/dl Creatinine 5.00 0.60-1.40 mg/dl Est Creatinine Clear Calc Drug Dose 11.9 ml/min Estimated GFR () 11.5 Estimated GFR (Non- 9.9 BUN/Creatinine Ratio 6.2 10-20 Random Glucose 104 70-99 mg/dl Calcium Level 8.0 8.5-10.1 mg/dl Assessment and Plan 81 yo M w/ hx of HTN, HLD, Afib,Diabetes , ESRD dialysis , CAD, CHF, p/w Rt Humerus fx and Rt femoral fx secondary to hx of fall, s/p hemiarthroplasty of the Rt Hip on 05/05/16 with subsequent episodes of cardiac arrest x2 with significant recovery transferred from ICU to telemetry Suspected Aspiration Pneumonia - sputum culture grew ACINETOBACTER BAUMANNII/HAEMOL - started on Gentamycin and Levofloxacin 05/10/16, switched Zosyn 3.375mg IV Q12 x 3 days then switched to Cefepime based on sensitivities - Continue Cefepime (Day 3) - F/U video swallowing study report tmr S/P Post-operative Cardiac arrest resuscitated x 2 - Pt is responsive, communicative, following commands - Etiology of arrests unknown, fat embolus considered , - Maintain in telemetry Altered Mental Status: 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 s/p cardiac arrest -improving , near to baseline mentation, pt aox3 on exam -Continue to monitor Leukocytosis -source is likely from suspected Aspiration Pneumonia -Continue to monitor Hypokalemia resolved w/ dialysis -mild 3.5 - F/u PRP Seizures CT head (05/06/2016): Senescent changes with no hemorrhage, mass effect, or evidence of acute territorial ischemia EEG: indicates structural or functional cerebral dysfunction in the right greater than left hemisphere, no electrographic seizures or epileptiform discharges Per Neurology, will need repeat CT in a few days for evaluation of brain injury as MRI contraindicated due to pacemaker Keppra d/c'd per neurology R femoral fracture- s/p Right Hip hemiarthroplasty (Post op day #6), as per nursing protocols, avoiding bending trunk past 90 degrees. Rt humerus fracture- conservative management, pain control ESRD Dialysis Tmr, management by Dr. Ramirez. Hx of Afib-Rate controlled. initially started on 2.5mg Warfarin, INR 2.9 goal INR of 2.0 to 3.0. Stopped heparin, Cardiology input appreciated -changed Warfarin to 2.5 mg 3 x/wk , 1.25 mg 4x/wk CAD - Continue Atorvastatin. - continue to hold Imdur, b-harry, ASA. DM2 - c/w Novolog, Sliding scale F/u PRP, POC glucose Hx of HTN, Ischemic Cardiomyopathy, Chronic Systolic Congestive Heart Failure - Norvasc, Imdur, hydralazine held - Per cardiology recommendations: Coreg6.25 mg b.i.d. Hypothyroid - c/w Synthroid 150mcg daily Gout - Continue Allopurinol Constipation (resolved) - Had BM overnight DVT Proph Coumadin Dispo: Full Code, Telemetry, Awaiting Video swallow study to process placement at [facility] vs. [facility] Continued [facility] stay due to: home environment unsafe for pt Discharge planning: retirement facility Resident Tracking Resident Involvement: Resident Care Provided Care Provided: Adult Hospital Medicine Reviewed: Pt Seen/Exam by , COLLEEN Notes, Labs History Resident Physician Supervision Note: I interviewed and examined the patient. Discussed with Dr. Sandy and agree with findings and plan as documented in the note. Any exceptions or clarifications are listed here: Feeling fairly well. No concerns Vitals reviewed Alert, awake, oriented and no confusion Irreg irreg pulm crackles at bases, otherwise clear R TIJ in place and LIJ CVC in place without surrounding erythema Abd: +BS soft NT ND Ext 1+ pitting edema, chronic venous stasis changes A/P: 81 yo male with multiple medical problems, here with fall sustaining Right humerus and Right hip fractures, and had cardiac arrest x 2 post-op requiring mechanical ventilation. Continue HD as scheduled, Ortho management appreciated for fractures, needs SNF placement vs acute rehab. Appreciate Cardiology management. Titrated up on Coreg as BP tolerates to 6.25 bid and can consider adding back Imdur, hydralazine when possible but BPs not elevated at this time. Continue Cefepime for aspiration PNA and switch to po clinda to finish out course of 7 days if d/c'd to SNF and video swallow planned. Repeat head CT to assess for ischemic brain injury as per Neuro recs Documented By: Abida Rivero
[2016-05-13] MEDS: TRAVOPROST Z 0.004% OPH SOLN 2.5 ML BTL OP SCH (20:58)
[2016-05-13] MEDS: ACETAMINOPHEN 325 MG TAB PO PRN (21:06)
[2016-05-14 04:04] VITALS: BP 107/52; PULSE 59; TEMP 36.6; O2SAT 95
[2016-05-14] MEDS: LEVOTHYROXINE 150 MCG TAB PO SCH (05:35)
[2016-05-14 06:25] LABS: MEAN CELL VOLUME 102.7 fL (80-100); MEAN CORPUSCULAR HEMOGLOBIN 35.6 pg (25-34); MEAN CORPUSCULAR HGB CONC 34.7 g/dl (32-36); MEAN PLATELET VOLUME 10.5 fL (7.4-10.4); PLATELET COUNT 185 K/uL (130-400); RED BLOOD COUNT 2.92 M/uL (4.7-6.1); WHITE BLOOD COUNT 9.92 K/uL (4.8-10.8)
[2016-05-14 06:45] LABS: INR 3.4 (0.9-1.1); PROTHROMBIN TIME (PATIENT) 38.8 SECONDS (9.0-12.0)
[2016-05-14 06:59] LABS: BUN/CREATININE RATIO 4.9 (10-20); CREATININE 3.8 mg/dl (0.60-1.40); POTASSIUM 3.8 mmol/L (3.5-5.1)
[2016-05-14] MEDS: INSULIN ASPART 100 UNITS/ML 3 ML PEN SC SCH ×2 (07:30→16:18)
[2016-05-14] MEDS: PANTOprazole SOD 40 MG TAB PO SCH (07:59)
[2016-05-14] MEDS: CALCIUM CARBONATE 500 MG CHEWABLE PO SCH ×3 (07:59→16:17)
[2016-05-14] MEDS: ALLOPURINOL 100 MG TAB PO SCH (07:59)
[2016-05-14] MEDS: DOCUSATE SODIUM 100 MG CAP PO SCH ×2 (08:00→21:00)
[2016-05-14] MEDS: ATORVASTATIN 40 MG TAB PO SCH (08:00)
[2016-05-14] MEDS: CARVEDILOL 6.25 MG TAB PO SCH ×2 (08:01→21:20)
[2016-05-14] MEDS: BRIMONIDINE TARTRATE-TIMOLOL M 1 DROP BTL OP SCH ×2 (08:01→21:17)
[2016-05-14] MEDS: CEROVITE ADV FORMULA TAB PO SCH (08:02)
[2016-05-14] MEDS: POLYETHYLENE (MIRALAX) 17 GM PACK PO SCH (08:02)
[2016-05-14] MEDS: BOOST VANILLA PUDDING CUP PO SCH ×2 (08:03→16:16)
--- NOTE | 2016-05-14 10:08 | PROGRESS NOTE ---
DATE: 05/14/2016 SUBJECTIVE: Mr. Morrow says that he is continuing to feel better. He says that his appetite is good. He has no difficulty swallowing. He has had no cough or choking when he eats. He denies having any chest pain and denies shortness of breath. He still has some discomfort in the right hip area as well as discomfort from his fracture of the right upper arm. He has no other symptoms of uremia or volume overload. Yesterday's hemodialysis treatment was essentially uncomplicated. OBJECTIVE: GENERAL: On physical exam, Mr. Morrow looks relatively well and certainly better than he did about a week ago. He is awake, alert and oriented and carries on an appropriate conversation. VITAL SIGNS: He is afebrile (36.6), his blood pressure 107/52, his pulse 59 and basically regular with a paced rhythm, although he does have an occasional extrasystole. Respiratory rate is 18 and his pulse ox 93%-95% on room air. SKIN: Shows essentially normal skin turgor. He has changes of venous stasis dermatitis on his lower extremities. He has ecchymoses involving the left arm centered around his left antecubital fossa incision for the creation of an AV fistula. He has some ecchymoses of the right upper arm related to his fracture. He has a tunneled hemodialysis catheter placed in the right IJ. There is no tenderness along the subcutaneous tunnel and there is no discharge from the exit site, which is beneath the distal right clavicle. He has a palpable pacemaker beneath the distal left clavicle and he has a left IJ triple lumen catheter in place. He has changes of venous stasis dermatitis on his lower extremities and he has obvious dystrophic toenails. LYMPHATICS: Show no palpable lymphadenopathy. HEAD: Normal. EYES: Grossly normal. He has no conjunctival icterus. EARS, NOSE, MOUTH AND THROAT: Unremarkable. Oral mucous membranes are moist. NECK: Supple. There is no obvious jugular venous distention. He has soft bilateral carotid murmurs. There is no thyromegaly. CHEST: Clear to auscultation. Breath sounds are diminished at the bases. CARDIAC: Shows a basic regular rhythm (paced). He has a soft systolic murmur at the apex and base. In the left upper quadrant of his chest, there is a faint murmur transmitted from his left upper arm AV fistula. No gallop sounds are heard. ABDOMEN: Nontender. There is no organomegaly or mass. Bowel sounds are present. EXTREMITIES: Show the changes of venous stasis dermatitis as described above. Peripheral pulses in his lower extremities are diminished. He has bilateral femoral bruits. NEUROLOGIC: Shows no lateralizing changes. He is globally weak. PERTINENT LABORATORY WORK: From today shows a white count of 9920. Differential was not done. His hemoglobin is 10.4 and hematocrit 30.0. His platelet count is 185,000. His prothrombin time is 38.8 with an INR of 3.4. Clinical chemistries show sodium of 138 mmol/L, potassium 3.8 mmol/L, chlorides 101 mmol/L, and CO2 content 25 mmol/L. His BUN is 19 and his creatinine 3.80 after yesterday's dialysis. His blood sugars vary from 102 to 125. His serum calcium is 8.0. A chest x-ray done yesterday shows cardiomegaly with some pulmonary vascular congestion. It does appear to be somewhat improved from the prior study of May 10. He has small bilateral pleural effusions greater on the right side. There is a question of some consolidative changes at the bases. ASSESSMENT: As before. Mr. Morrow continues to look better every day. He is on cefepime for his positive sputum culture (acetobactor). Certainly, the cefepime being used for that issue is likely contributing significantly to his prothrombin time being elevated. His dose of cefepime does appear to be appropriate for his end-stage renal disease. RECOMMENDATIONS: No change for now. I will plan on hemodialysis tomorrow. We are working toward transfer to [facility]. Apparently, they are waiting for swallowing function. At the current time, it certainly appears as if the patient is capable of eating without at least having any symptoms of aspiration.
[2016-05-14 11:32] VITALS: BP 113/56; PULSE 62; TEMP 36.4; O2SAT 93
--- NOTE | 2016-05-14 12:07 | DIAGNOSTIC IMAGING REPORT ---
CT HEAD WITHOUT CONTRAST (CT) CLINICAL HISTORY: Change in mental status. Patient status post cardiac arrest COMPARISON STUDY: 05/06/2016 TECHNIQUE: Axial CT of the brain is performed from the vertex to the skull base. IV contrast was not administered for this examination. CT DOSE: 712.55 mGy.cm FINDINGS: No intra or extra-axial mass lesions are visualized. There is no CT evidence of acute cortical infarction. There is no evidence of midline shift. There is no acute hemorrhage. No calvarial fractures are visualized. There are moderate white matter hypodensities likely on a small vessel basis. 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 There is no evidence of pathologic ventricular dilatation. There is no evidence of acute sinusitis. There is a right maxillary sinus retention cyst. There are vertebral basilar and carotid calcifications. IMPRESSION: No acute intracranial findings Electronically signed by: Chris Guthrie M.D. 05/14/2016 12:05 PM Dictated Date/Time: 05/14/2016 12:00 PM
[2016-05-14] MEDS: OXYCODONE/ACETAMINOPHEN 5-325 TAB PO PRN ×2 (12:18→20:06)
[2016-05-14] MEDS: CEFEPIME IV 500 MG in DEXTROSE 5% 100ML 100 ML IV SCH (14:07)
--- NOTE | 2016-05-14 15:14 | Family Medicine Progress Note ---
Progress Note Date of Service May 14, 2016. Subjective Pt evaluation today including: conversation w/ patient, conversation w/ family , physical exam, chart review, lab review, review of studies, conversation w/ financial sales consultant Pain: Rt arm pain near fx site worse with movement PO Intake: adequate Voiding: no voiding problems No acute events overnight per nurse. Per Telemetry: pt was paced with no events. Pt continues to complain of Rt arm pain at his fx site up to 8-9/10 when moving particularly during physical therapy. At the time he had not received any Percocet yet. Pt also reports cough. no cp, sob, palpitation, Constitutional: No chills, No fever Respiratory: + cough, No shortness of breath Cardiovascular: No chest pain, No palpitations Abdomen: No nausea, No pain, No vomiting Male : No dysuria, No urinary frequency Skin: No itch, No rash Medications Current Inpatient Medications Medications (Trade) Dose Ordered Sig/Summer Route Start Time Stop Time Status Last Admin Dose Admin Acetaminophen (Tylenol Tab) 650 mg Q4H PRN PO 05/03/16 03:30 06/02/16 03:29 05/13/16 21:06 650 MG Polyethylene (Miralax Powder Packet) 17 gm DAILY PRN PO 05/03/16 03:30 06/02/16 03:29 05/07/16 10:01 17 GM Ondansetron HCl (Zofran Inj) 4 mg Q6H PRN IV 05/03/16 03:30 06/02/16 03:29 05/08/16 10:19 4 MG Atorvastatin Calcium (Lipitor Tab) 80 mg QAM PO 05/03/16 09:00 06/02/16 08:59 05/14/16 08:00 80 MG Levothyroxine Sodium (Synthroid Tab) 150 mcg DAILYBB PO 05/03/16 06:00 06/02/16 05:59 05/14/16 05:35 150 MCG Travoprost (Travatan Z) 1 drops HS OP 05/03/16 21:00 06/02/16 20:59 05/13/16 20:58 1 DROPS Glucose (Glucose 40% Gel) 15-30 GRAMS 15 GRAMS... UD PRN PO 05/03/16 06:00 06/02/16 05:59 Glucose (Glucose Chew Tab) 4-8 Tablets 4 Tabl... UD PRN PO 05/03/16 06:00 06/02/16 05:59 Dextrose (Dextrose 50% 50ML Syringe) 25-50ML OF 50% DW IV FOR... UD PRN IV 05/03/16 06:00 06/02/16 05:59 Glucagon (Glucagon Inj) 1 mg UD PRN SQ 05/03/16 06:00 06/02/16 05:59 Brimonidine/ Timolol (Combigan 0.2%/ 0.5% Oph Solution) 1 drop BID OP 05/04/16 21:00 06/03/16 20:59 05/14/16 08:01 1 DROP Polyethylene 17 gm 17 gm DAILY PO 05/08/16 09:00 06/07/16 08:59 05/11/16 07:53 17 GM Acetaminophen/ Empty Bag (Ofirmev IV/ Empty Iv Bag 100ml) 65 ml @ 260 mls/hr Q6H PRN IV 05/08/16 09:15 06/07/16 09:14 05/09/16 15:15 260 MLS/HR Calcium Carbonate (Tums Chew Tab) 500 mg AC PO 05/09/16 11:00 06/08/16 10:59 05/14/16 07:59 500 MG Insulin Aspart SLIDING SCALE G... BIDM SC 05/10/16 16:30 06/09/16 16:29 Cefepime HCl/ Dextrose (Maxipime IV/D5 100ml) 105.65 ml @ 222.6 mls/hr DAILY@1400 IV 05/11/16 14:00 05/17/16 13:59 05/14/16 14:07 222.6 MLS/HR Docusate Sodium (coLACE CAP) 100 mg BID PO 05/10/16 21:00 06/09/16 20:59 05/14/16 08:00 100 MG Allopurinol (Zyloprim Tab) 150 mg DAILY PO 05/11/16 09:00 06/10/16 08:59 05/14/16 07:59 150 MG Multivitamins/ Minerals (Multivitamin W/ Minerals Tab) 1 tab QAM PO 05/11/16 09:00 06/10/16 08:59 05/14/16 08:02 1 TAB Oxycodone/ Acetaminophen (Percocet 5-325MG Tab) 1 tab Q6H PRN PO 05/10/16 10:30 05/24/16 10:29 05/14/16 12:18 1 TAB Pantoprazole Sodium (Protonix Tab) 40 mg QAM PO 05/11/16 09:00 06/10/16 08:59 05/14/16 07:59 40 MG Enteral Nutritional Formula (Boost Pudding) 1 cup BIDM PO 05/11/16 16:45 06/10/16 16:44 05/14/16 08:03 1 CUP Carvedilol (Coreg Tab) 6.25 mg BID PO 05/12/16 21:00 06/11/16 20:59 05/14/16 08:01 6.25 MG Heparin Sodium (Porcine) (Heparin 10 Unit/ ml 5 ml Flush) 5 ml PRN PRN FLUSH 05/13/16 16:30 06/12/16 16:29 Warfarin Sodium (Coumadin Tab) 2.5 mg MoWeFr@1600 PO 05/15/16 16:00 06/14/16 15:59 Warfarin Sodium (Coumadin Tab) 1.25 mg SuTuThSa@1600 PO 05/14/16 16:00 06/13/16 15:59 Heparin Sodium (Porcine) (Heparin Iv Bolus) 2,000 unit TODAY@1000 IV 05/15/16 10:00 05/15/16 23:59 Epoetin Johnny 43100 units 10,000 units TODAY@1000 IV. 05/15/16 10:00 05/15/16 23:59 Sodium Chloride (Nss 1000ml) 1,000 ml @ 0 mls/hr Q0M PRN IV 05/15/16 06:00 05/15/16 23:59 Objective Physical Exam General Appearance: WD/WN, no apparent distress Eyes: normal inspection, PERRL, EOMI Neck: supple, trachea midline Respiratory/Chest: lungs clear, normal breath sounds, no respiratory distress Cardiovascular: regular rate, rhythm, no murmur, + pertinent finding ( pacemaker in place) Abdomen: normal bowel sounds, soft Extremities: no pedal edema, no calf tenderness Neurologic/Psychiatric: alert, oriented x 3 Notes: Extremities: no pedal edema, no calf tenderness, + pertinent finding (Left arm swelling, ecchymoses ( non-functional fistula)) Neurologic/Psychiatric: alert, normal mood/affect, oriented x [address] and left IJ CVC in place Laboratory Results Results Past 24 Hours Test 05/13/16 15:57 05/13/16 20:21 05/14/16 06:10 05/14/16 06:23 Range/Units Bedside Glucose 86 144 114 70-99 mg/dl White Blood Count 9.92 4.8-10.8 K/uL Red Blood Count 2.92 4.7-6.1 M/uL Hemoglobin 10.4 14.0-18.0 g/dL Hematocrit 30.0 42-52 % Mean Corpuscular Volume 102.7 80-100 fL Mean Corpuscular Hemoglobin 35.6 25-34 pg Mean Corpuscular Hemoglobin Concent 34.7 32-36 g/dl RDW Standard Deviation 65.5 36.4-46.3 fL RDW Coefficient of Variation 20.8 11.5-14.5 % Platelet Count 185 130-400 K/uL Mean Platelet Volume 10.5 7.4-10.4 fL Nucleated RBC Absolute Count (auto) 0.36 0-0 K/uL Nucleated Red Blood Cells % 3.7 % Prothrombin Time 38.8 9.0-12.0 SECONDS Prothromb Time International Ratio 3.4 0.9-1.1 Sodium Level 138 136-145 mmol/L Potassium Level 3.8 3.5-5.1 mmol/L Chloride Level 101 98-107 mmol/L Carbon Dioxide Level 25 21-32 mmol/L Anion Gap 12.0 3-11 mmol/L Blood Urea Nitrogen 19 7-18 mg/dl Creatinine 3.80 0.60-1.40 mg/dl Est Creatinine Clear Calc Drug Dose 15.7 ml/min Estimated GFR () 16.0 Estimated GFR (Non- 13.8 BUN/Creatinine Ratio 4.9 10-20 Random Glucose 116 70-99 mg/dl Calcium Level 8.0 8.5-10.1 mg/dl Test 05/14/16 10:40 Range/Units Bedside Glucose 140 70-99 mg/dl Assessment and Plan 81 yo M w/ hx of HTN, HLD, Afib,Diabetes , ESRD dialysis , CAD, CHF, p/w Rt Humerus fx and Rt femoral fx secondary to hx of fall, s/p hemiarthroplasty of the Rt Hip on 05/05/16 with subsequent episodes of cardiac arrest x2 with significant recovery transferred from ICU to telemetry Suspected Aspiration Pneumonia - sputum culture grew ACINETOBACTER BAUMANNII/HAEMOL - started on Gentamycin and Levofloxacin 05/10/16, switched Zosyn 3.375mg IV Q12 x 3 days then switched to Cefepime based on sensitivities - Continue Cefepime (Day 4) while is hospital CXR (05/13) showed Cardiomegaly and pulmonary vascular congestion, Mild interstitial edema which modestly improved from 05/10/2016. in addition to Emphysema, Small pleural effusions and right greater than left bibasilar consolidation. - Video swallowing study/Speech Therapy Recommendations: -Overall pt. presents with NO oral or pharyngeal dysphagia. -NO aspiration and NO penetration occurred throughout this study. 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 Recommendin. Dental soft "slippery" diet with thin liquids 2. GERD precautions - smaller more frequent meals, upright for 20min after all intake, no intake 20 min before bed. 3. GI consult to address esophageal dysmotility. 4. SPECIAL DELIVERY CARRIER will not continue to follow as swallow function is WFL - Gastroenterology consulted for Esophageal dysmotility - Will d/c on PO Levaquin [address] dose, 500 mg every other day S/P Post-operative Cardiac arrest resuscitated x 2 - Pt is responsive, communicative, following commands - Etiology of arrests unknown, fat embolus considered , - Maintain in telemetry Altered Mental Status: 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 s/p cardiac arrest -improving , near to baseline mentation, pt aox3 on exam -Continue to monitor Leukocytosis resolved -source was likely from suspected Aspiration Pneumonia -Continue to monitor Hypokalemia resolved w/ dialysis -mild 3.5 - F/u PRP Seizures CT head (05/06/2016): Senescent changes with no hemorrhage, mass effect, or evidence of acute territorial ischemia EEG: indicates structural or functional cerebral dysfunction in the right greater than left hemisphere, no electrographic seizures or epileptiform discharges Per Neurology, will need repeat CT in a few days for evaluation of brain injury as MRI contraindicated due to pacemaker Keppra d/c'd per neurology Repeat CT head (05/14/16) No acute intracranial findings R femoral fracture- s/p Right Hip hemiarthroplasty (05/05/16), as per nursing protocols, avoiding bending trunk past 90 degrees. Rt humerus fracture- conservative management, pain control ESRD Dialysis Tmr, management by Dr. Ramirez. Hx of Afib-Rate controlled. initially started on 2.5mg Warfarin goal INR of 2.0 to 3.0. Stopped heparin, Cardiology input appreciated -changed Warfarin to 2.5 mg 3 x/wk , 1.25 mg 4x/wk INR 3.4, F/U repeat INR in AM CAD - Continue Atorvastatin. - continue to hold Imdur, b-harry, ASA. DM2 - c/w Novolog, Sliding scale F/u PRP, POC glucose Hx of HTN, Ischemic Cardiomyopathy, Chronic Systolic Congestive Heart Failure - Norvasc, Imdur, hydralazine held - Per cardiology recommendations: Coreg 6.25 mg b.i.d. Hypothyroid - c/w Synthroid 150mcg daily Gout - Continue Allopurinol Constipation (resolved) - Had BM overnight DVT Proph anticoagulated with Coumadin Dispo: Full Code, Telemetry, awaiting potential placement at [facility] Continued [facility] stay due to: home environment unsafe for pt Discharge planning: jail facility Resident Tracking Resident Involvement: Resident Care Provided Care Provided: Adult Hospital Medicine Reviewed: Pt Seen/Exam by Me, COLLEEN Notes, Labs, RAD History Resident Physician Supervision Note: I interviewed and examined the patient. Discussed with Dr. Sandy and agree with findings and plan as documented in the note. Any exceptions or clarifications are listed here: Feeling fairly well. No concerns Vitals reviewed Alert, awake, oriented and no confusion Irreg irreg pulm crackles at bases, otherwise clear R TIJ in place and LIJ CVC in place without surrounding erythema Abd: +BS soft NT ND Ext 1+ pitting edema, chronic venous stasis changes, right hip incision c/d/i, right humerus with large green ecchymosis and TTP A/P: 81 yo male with multiple medical problems, here with fall sustaining Right humerus and Right hip fractures, and had cardiac arrest x 2 post-op requiring mechanical ventilation. Continue HD as scheduled, Ortho management appreciated for fractures, needs SNF placement vs acute rehab. Appreciate Cardiology management. Titrated up on Coreg as BP tolerates to 6.25 bid and can consider adding back Imdur, hydralazine when possible but BPs not elevated at this time. Continue Cefepime for aspiration PNA and switch to po Levaquin to finish out course of 14 days if d/c'd to SNF. Speech therapy recommending GI consultation for aperistalsis of esophagus, but no aspiration. Repeat head CT to assess for ischemic brain injury as per Neuro recs was with nothing new. Plan for GI consult tomorrow and d/c to [facility] hopeful after that. Documented By: Abida Rivero
[2016-05-14] MEDS ORDERED: WARFARIN SOD 1.25 MG TAB PO SCH (16:00)
[2016-05-14 16:20] VITALS: BP 109/41; PULSE 62; TEMP 36.4; O2SAT 94
--- NOTE | 2016-05-14 16:26 | DIAGNOSTIC IMAGING REPORT ---
VIDEO SWALLOW HISTORY: r/o aspiration; h/o asp and Zenker; please schedule per order TECHNIQUE: Video fluoroscopic evaluation of swallowing was performed in the AP and lateral projections by the speech pathology staff. The patient is fed nectar-thick and thin liquid barium, a barium coated wafer, and barium pudding. FLUOROSCOPY TIME: 2.8 minutes.. COMPARISON STUDY: None. FINDINGS: There is normal hyoid excursion and epiglottic deflection. No significant penetration or aspiration identified. Mild vallecular residue with the thicker barium consistencies. Lucency at the prevertebral soft tissues of the lower cervical spine. However, this does not fill with contrast to suggest a Zenker's diverticulum. There is mild narrowing at the proximal esophagus. There is no significant esophageal motility. IMPRESSION: 1. No aspiration identified. 2. Soft tissue lucency at the prevertebral location of the lower cervical spine. This could represent gas within a residual Zenker's diverticulum. However, there is no contrast at this location to confirm the presence of a diverticulum. 3. The esophagus is essentially aperistaltic. There may be mild narrowing at the proximal esophagus. 4. Please see the speech pathologist report for detailed findings and recommendations. Electronically signed by: Jose G Rodriguez M.D. 05/14/2016 4:24 PM Dictated Date/Time: 05/14/2016 11:59 AM
[2016-05-14 20:00] VITALS: O2SAT 91
[2016-05-14 20:24] VITALS: BP 127/43; PULSE 62; TEMP 36.4; O2SAT 91
[2016-05-14] MEDS: TRAVOPROST Z 0.004% OPH SOLN 2.5 ML BTL OP SCH (21:21)
[2016-05-15] VITALS (29 sets, daily range): BP systolic 86–136; BP diastolic 41–76; PULSE 55–78; TEMP 36–37; O2SAT 87–96
[2016-05-15] MEDS: OXYCODONE/ACETAMINOPHEN 5-325 TAB PO PRN ×2 (04:54→14:42)
[2016-05-15] MEDS ORDERED: SODIUM CHLORIDE 0.9% 1000ML 1,000 ML IV PRN (06:00)
[2016-05-15 06:20] LABS: HEMATOCRIT 30.6 % (42-52); MEAN CELL VOLUME 104.1 fL (80-100); MEAN CORPUSCULAR HGB CONC 33.7 g/dl (32-36); MEAN PLATELET VOLUME 10.4 fL (7.4-10.4); PLATELET COUNT 208 K/uL (130-400); RED BLOOD COUNT 2.94 M/uL (4.7-6.1); WHITE BLOOD COUNT 9.66 K/uL (4.8-10.8)
[2016-05-15 06:35] LABS: INR 3.5 (0.9-1.1); PROTHROMBIN TIME (PATIENT) 39.7 SECONDS (9.0-12.0)
[2016-05-15] MEDS: LEVOTHYROXINE 150 MCG TAB PO SCH (06:35)
[2016-05-15] MEDS: CALCIUM CARBONATE 500 MG CHEWABLE PO SCH ×3 (06:35→16:22)
[2016-05-15 07:01] LABS: BUN/CREATININE RATIO 5.9 (10-20); CALCIUM 7.8 mg/dl (8.5-10.1); CREATININE 5.3 mg/dl (0.60-1.40); POTASSIUM 3.8 mmol/L (3.5-5.1)
[2016-05-15] MEDS: INSULIN ASPART 100 UNITS/ML 3 ML PEN SC SCH ×2 (07:20→16:22)
[2016-05-15] MEDS: BOOST VANILLA PUDDING CUP PO SCH ×2 (07:30→16:22)
[2016-05-15] MEDS: DOCUSATE SODIUM 100 MG CAP PO SCH (09:00)
[2016-05-15] MEDS: POLYETHYLENE (MIRALAX) 17 GM PACK PO SCH (09:00)
[2016-05-15] MEDS ORDERED: HEPARIN SOD (PORCINE) 1000 UNIT/ML 10 ML VIAL IV SCH (10:00)
[2016-05-15] MEDS ORDERED: EPOETIN ALFA 10,000 UNITS/ML VIAL IV. SCH (10:00)
--- NOTE | 2016-05-15 11:21 | PROGRESS NOTE ---
DATE: 05/15/2016 RENAL PROGRESS NOTE SUBJECTIVE: Mr. Morrow says that he is doing quite well. He denies having any pain in his right hip, although he has not been up that much. He is having some minimal discomfort in his right upper arm. He denies chest pain or shortness of breath. His appetite is improving. He has had no choking episodes. He has had no other symptoms of uremia or volume overload. OBJECTIVE: GENERAL: On physical exam, he appears relatively well but still obviously chronically ill. VITAL SIGNS: He is afebrile (36.3), his blood pressure 107/64, his pulse 62 and slightly irregular, respiratory rate 14, his pulse ox 93% on room air. SKIN: Shows somewhat of a sallow complexion. He has minimally diminished skin turgor. He has changes of venous stasis dermatitis on his lower extremities. He has significant ecchymoses involving the left arm, but it appears to be improved. That ecchymoses is centered around his left antecubital fossa incision, which appears to be healing well. That incision was a further creation of his left upper arm AV fistula. He has improving ecchymoses in his right upper arm. He has changes of chronic venous stasis dermatitis. He has scars from prior surgical procedures. He still has a triple lumen catheter in his left IJ as well as his tunneled hemodialysis catheter in the right IJ and a pacemaker palpable beneath the distal left clavicle. LYMPHATICS: Show no palpable lymphadenopathy. HEAD: Normal. EYES: Grossly normal. He has no conjunctival icterus. He has minimal periorbital swelling. EARS, NOSE, MOUTH AND THROAT: Unremarkable. Oral mucous membranes are moist. NECK: Supple. Lying nearly flat he has very minimal jugular venous distention. He has soft bilateral carotid murmurs. He has no thyromegaly. CHEST: Clear to auscultation although breath sounds are diminished at the bases. CARDIAC: Shows basically regular rhythm (? paced). Occasional apparent extrasystoles are noted. He has a soft systolic murmur at the apex and base. In the left upper quadrant of his chest, he has a murmur transmitted from his left upper arm AV fistula. He has no cardiac gallop sounds or pericardial friction rubs. ABDOMEN: Nontender. There is no organomegaly or mass. Bowel sounds are present. There are no abdominal bruits. EXTREMITIES: Show changes of venous stasis dermatitis in the lower extremities as well as the ecchymoses in the upper extremities. He has an incision in the right groin from his hip replacement. He has bilateral femoral bruits and diminished peripheral pulses in his feet. NEUROLOGIC: Shows him to be awake, alert, oriented and appropriate. He is somewhat weak. There are no lateralizing changes. LABORATORY: Pertinent laboratory work done today shows a white count of 9660, his hemoglobin is 10.3, hematocrit 30.6. Red cell indices are macrocytic, his platelet count 208,000. His prothrombin time is 39.7 with an INR of 3.5. Clinical chemistries show a sodium of 141 mmol/L, potassium 3.8 mmol/L, chloride is 103 mmol/L, and CO2 content 25 mmol/L, his BUN is 32, his creatinine 5.30. Blood sugars vary from 109-183. His serum calcium is 7.8. Yesterday, he had a video swallow. That showed no evidence of aspiration. There is a soft tissue lucency at the paravertebral location of the lower cervical spine. That is felt possibly represent gas within a residual Zenker diverticulum. There is no contrast at that location to confirm the presence of a diverticulum (that was tied off about 1 year ago). His esophagus is aperistaltic with some questionable narrowing of the proximal esophagus. ASSESSMENT: Mr. Morrow appears to be doing reasonably well. At this point, I see no reason why he cannot be transferred to [facility] for continued rehabilitation. Certainly, it is going to take some time for his humerus to heal completely. RECOMMENDATIONS: Upon transfer, continue all of his usual medicines. Complete his course of antibiotics. Watch his prothrombin time. Dialysis orders for [facility] have been written and forwarded by me.
[2016-05-15] MEDS ORDERED: TYL325X PO (13:10)
[2016-05-15] MEDS ORDERED: WARF2.5T8 PO (13:10)
[2016-05-15] MEDS ORDERED: TUMS PO (13:10)
[2016-05-15] MEDS ORDERED: CRG625 PO (13:10)
[2016-05-15] MEDS ORDERED: CNT PO (13:10)
[2016-05-15] MEDS ORDERED: OXYC-57 PO (13:10)
[2016-05-15] MEDS ORDERED: LEVO1TAB35 PO (13:10)
[2016-05-15] MEDS ORDERED: CLC100 PO (13:10)
--- NOTE | 2016-05-15 14:18 | Discharge Instructions ---
Discharge Instructions Admission Reason for Admission: Closed Fracture Of Right Proximal Humerus Discharge Discharge Diagnosis / Problem: Closed Fracture Of Right Proximal Humerus, Postoperative cardiac arrest Discharge Goals Goal(s): Decrease discomfort, Improve function, Increase independence, Improve disease control, Improve nutritional status, Learn about illness, Diagnostic testing, Therapeutic intervention, Screening, Prevent Disease Progression Activity Recommendations Activity Level: Assistance Required Refer to Orthopedic Surgery Discharge instructions . Additional Information Patient informed of condition: Yes Advance Directives: No DNR: No Level of Care: Acute Rehab Communicable Disease: No Prognosis: Improving Valle Catheter: No Instructions / Follow-Up Instructions / Follow-Up 81 yo M w/ hx of HTN, HLD, Afib, Diabetes , ESRD dialysis , CAD, CHF, p/w Rt Humerus fx and Rt femoral fx secondary to hx of fall, s/p hemiarthroplasty of the Rt Hip on 05/05/16 with subsequent episodes of cardiac arrest x2 with significant recovery transferred from ICU to telemetry Suspected Aspiration Pneumonia - sputum culture grew ACINETOBACTER BAUMANNII/HAEMOL - started on Gentamycin and Levofloxacin 05/10/16, switched Zosyn 3.375mg IV Q12 x 3 days then switched to Cefepime based on sensitivities - Continue Cefepime (Day 4) while is hospital CXR (05/13) showed Cardiomegaly and pulmonary vascular congestion, Mild interstitial edema which modestly improved from 05/10/2016. in addition to Emphysema, Small pleural effusions and right greater than left bibasilar consolidation. - Video swallowing study/Speech Therapy Recommendations: -Overall pt. presents with NO oral or pharyngeal dysphagia. -NO aspiration and NO penetration occurred throughout this study. 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 Recommendin. Dental soft "slippery" diet with thin liquids 2. GERD precautions - smaller more frequent meals, upright for 20min after all intake, no intake 20 min before bed. 3. GI consult to address esophageal dysmotility. 4. MUSIC INTERN will not continue to follow as swallow function is WFL - Will d/c on PO Levaquin [address] dose, 500 mg every other day S/P Post-operative Cardiac arrest resuscitated x 2 - Pt is responsive, communicative, following commands - Etiology of arrests unknown, fat embolus considered , Altered Mental Status: 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 s/p cardiac arrest -improving , near to baseline mentation, pt aox3 on exam -Continue to monitor Leukocytosis resolved -source was likely from suspected Aspiration Pneumonia Hypokalemia resolved w/ dialysis -mild 3.[address] head (05/06/2016): Senescent changes with no hemorrhage, mass effect, or evidence of acute territorial ischemia EEG: indicates structural or functional cerebral dysfunction in the right greater than left hemisphere, no electrographic seizures or epileptiform discharges Per Neurology, will need repeat CT in a few days for evaluation of brain injury as MRI contraindicated due to pacemaker Keppra d/c'd per neurology Repeat CT head (05/14/16) No acute intracranial findings R femoral fracture- s/p Right Hip hemiarthroplasty (05/05/16), as per nursing protocols, avoiding bending trunk past 90 degrees. Rt humerus fracture- conservative management, pain control ESRD Dialysis M, W, F Hx of Afib-Rate controlled. initially started on 2.5mg Warfarin goal INR of 2.0 to 3.0. Stopped heparin, Cardiology input appreciated -changed Warfarin to 2.5 mg 3 x/wk , 1.25 mg 4x/wk INR 3.5, F/U repeat INR Coumadin 1.25 mg, hold until INR < 3 CAD - Continue Atorvastatin, ASA - continue to hold Imdur, b-harry DM2 - c/w Novolog, Sliding scale F/u PRP, POC glucose Hx of HTN, Ischemic Cardiomyopathy, Chronic Systolic Congestive Heart Failure - Norvasc, Imdur, hydralazine held - Per cardiology recommendations: Coreg 6.25 mg b.i.d. Hypothyroid - c/w Synthroid 150mcg daily Gout - Continue Allopurinol Constipation (resolved) - Had BM overnight DVT Proph anticoagulated with Coumadin Dispo: Full Code, Telemetry, Current Hospital Diet Patient's current hospital diet: Renal Diet, Diabetes Type 2 Diet Discharge Diet Recommended Diet: AHA Diet (Heart Healthy) Diet Texture: Dental Soft (bite-sized) ( Dental soft "slippery" diet with thin liquid) Procedures Procedures Performed: Right Bipolar Hip Prosthesis Direct Anterior Approach-Cemented Pending Studies Studies pending at discharge: no Physician Orders On Transfer Additional Orders: -Repeat INR tmr, Hold Coumadin until INR < 3 -Hemodialysis M, W ,F -F/u with Dr. Alves (Orthopedics) 2016 -Followup with Dr. Ramirez within 1 wks after d/c from [facility] -GERD precautions - smaller more frequent meals, upright for 20min after all intake, no intake 20 min before bed. -Dental soft "slippery" diet with thin liquids 2. GERD precautions - smaller more frequent meals, upright for 20min after all intake, no intake 20 min before bed. -Refer to Orthopedic d/c instructions for further post operative recommendations , limitations Medical Emergencies . Who to Call and When: Medical Emergencies: If at any time you feel your situation is an emergency, please call 911 immediately. . Non-Emergent Contact Non-Emergency issues call your: Primary Care Provider, Surgeon Call Non-Emergent contact if: you have a fever, your pain is worsening, your pain is unusual for you, your pain is concerning you, wound has increased drainage, wound has increased redness, wound has increased pain, you have any medication questions . . "Provider Documentation" section prepared by Capo Sandy. Core Measure Problem Core Measures: None
[2016-05-15] MEDS: CARVEDILOL 6.25 MG TAB PO SCH (14:29)
[2016-05-15] MEDS: BRIMONIDINE TARTRATE-TIMOLOL M 1 DROP BTL OP SCH (14:29)
[2016-05-15] MEDS: ATORVASTATIN 40 MG TAB PO SCH (14:29)
[2016-05-15] MEDS: PANTOprazole SOD 40 MG TAB PO SCH (14:30)
[2016-05-15] MEDS: CEROVITE ADV FORMULA TAB PO SCH (14:30)
[2016-05-15] MEDS: ALLOPURINOL 100 MG TAB PO SCH (14:31)
[2016-05-15] MEDS: CEFEPIME IV 500 MG in DEXTROSE 5% 100ML 100 ML IV SCH (14:33)
--- NOTE | 2016-05-15 14:58 | Gastrointestinal Consultation ---
Gastrointestinal Consultation Date of Consultation: May 15, 2016 Attending Physician: Abida Rivero Consulting Physician: Ken Tracey Reason for Consultation: Esophageal dysmotility History of Present Illness Patient is a 81 year old male who has had complicated hospitalization course mainly w suspected aspiration pneumonia, s/p fall, R hip fracture complicated by cardiac arrest post resuscitation x 2 after his fracture repair surgery currently being seen for esophageal dysmotility. 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 He has had and EGD in April 2015 w evidence of Zenker's diverticulum, gastritis, Bernstein' s, hiatal hernia. He since has had the Zenker's diverticulum repaired, no evidence of contrast retention to suggest diverticulum on recent video swallow. He had passed Speech Therapy eval as well, recommended to be on dental soft, "slippery diet". I met w pt up on Hemodialysis unit. He is awake, alert. When questioned about trouble swallowing, he denies this. Also denies any odynophagia , coughing, vomiting due to food caught in esophagus; no n/v, weight loss either. Past Medical/Surgical History Medical Problems: (1) Anemia Status: Acute (2) Cellulitis of knee, right Status: Acute (3) Chronic kidney disease Status: Acute (4) Closed fracture of right proximal humerus Status: Acute (5) Dehydration Status: Acute (6) Dysphagia Status: Acute (7) Dysphasia Status: Acute (8) Elevated troponin Status: Acute (9) Fall Status: Acute (10) GI bleed Status: Acute (11) Hypotension Status: Acute (12) Right leg pain Status: Acute (13) Supratherapeutic INR Status: Acute Past Surgical History: Pacemaker Zenkers Fistula placement Hip fracture repair Family History No significant family history Social History Smoking Status: Former Smoker Drug Use: none Marital Status: Occupation Status: retired Allergies Coded Allergies: No Known Allergies (Unverified , 04/23/16) Current Medications Home Meds and Scripts Medications Dose Route/Sig Max Daily Dose Days Date Category Dose Instructions Levaquin (Levofloxacin) 750 Mg Tab 750 Mg PO DAILY 9 05/15/16 Rx starting on 05/16/16, then 500mg po every other day through 05/24 Certavite/Antioxidants (Multivitamins/Minerals) 1 Tab Tab 1 Tab PO QAM 30 05/15/16 Rx Docusate Sodium 100 Mg Cap 100 Mg PO BID 30 05/15/16 Rx Tums (Calcium Carbonate) 500 Mg Chew 500 Mg PO AC 30 05/15/16 Rx Tylenol (Acetaminophen) 325 Mg Tab 650 Mg PO Q4H PRN 30 05/15/16 Rx Carvedilol 6.25 Mg Tab 6.25 Mg PO BID 30 05/15/16 Rx Percocet 5MG/325MG (Oxycodone/Acetaminophen) Tab 1 Tablet PO Q4H PRN 05/15/16 Rx Jantoven (Warfarin Sodium) 2.5 Mg Tab 1.25 Mg PO DAILY 30 05/15/16 Rx BUT HOLD ON 05/15/16 AND RESTART WHEN INR <3 Ocuvite Preservision (Multivitamins/Minerals) 1 Tab Tab 1 Tab PO DAILY 04/23/16 Reported TAKES ANY TIME Jantoven (Warfarin Sodium) 2.5 Mg Tab 2.5 Mg PO 3XWEEK 03/02/16 Reported Wednesday Travatan Z (Travoprost) 0.004 % Tuan 1 Drops OP HS 03/02/16 Reported Miralax (Polyethylene Glycol 3350) 1 Pow Pow 17 Gm PO DAILY PRN 03/02/16 Reported Protonix (Pantoprazole Sodium) 40 Mg Tab 40 Mg PO DAILY 03/02/16 Reported TAKES ANY TIME DUING THE DAY Levothyroxine Sodium 150 Mcg Tab 1 Tab PO QAM 30 03/02/16 Reported Imdur Ext Rel (Isosorbide Mononitrate) 30 Mg Ertab 1 Tab PO QAM 30 03/02/16 Reported Lantus Solostar (Insulin Glargine) 100 Unit/Ml Inj 12 Units SQ QAM 03/02/16 Reported Novolog Flexpen (Insulin Aspart) 100 Units/Ml Inj SLIDING SCALE 03/02/16 Reported Coreg (Carvedilol) 25 Mg Tab 1 Tab PO BID 90 03/02/16 Reported Combigan (Brimonidine Tartrate-Timolol M) 1 Thao Thao 1 Drop OPB BID 03/02/16 Reported Lipitor (Atorvastatin Calcium) 80 Mg Tab 80 Mg PO QAM 03/02/16 Reported Aspirin Ec (Aspirin) 81 Mg Tab 81 Mg PO QAM 03/02/16 Reported Norvasc (Amlodipine Besylate) 10 Mg Tab 10 Mg PO QAM 03/02/16 Reported Zyloprim (Allopurinol) 300 Mg Tab 150 Mg PO QAM 03/02/16 Reported Hydralazine HCl 50 Mg Tab 50 Mg PO TID 10/27/15 Reported Metolazone 5 Mg Tab 5 Mg PO QAM 10/27/15 Reported Glipizide Er (Glipizide) 5 Mg Tab 5 Mg PO QAM 10/27/15 Reported Review of Systems Constitutional: No chills, No fever ENT: No pain on swallowing, No trouble swallowing Respiratory: No cough Cardiac: No chest pain Abdomen: No nausea, No pain, No vomiting Physical Exam Date Time Temp Pulse Resp B/P Pulse Ox O2 Delivery O2 Flow Rate FiO2 05/15/16 14:02 37.0 67 125/76 05/15/16 13:30 62 123/52 05/15/16 13:15 65 130/60 05/15/16 13:00 65 119/48 05/15/16 12:45 63 102/57 05/15/16 12:30 58 115/51 05/15/16 12:15 58 116/46 05/15/16 12:00 60 112/41 05/15/16 11:46 61 108/43 05/15/16 11:45 61 108/43 05/15/16 11:30 61 99/46 05/15/16 11:15 61 102/42 05/15/16 11:02 36.0 55 86/43 05/15/16 11:00 60 105/45 05/15/16 10:45 60 105/47 05/15/16 10:40 59 109/44 05/15/16 08:00 Room Air 05/15/16 07:37 36.3 62 14 107/64 93 Room Air 05/15/16 04:03 36.3 60 16 103/62 94 Room Air 05/15/16 04:00 94 Room Air 05/15/16 00:15 36.5 60 22 110/43 93 Room Air 05/15/16 00:01 93 Room Air 05/14/16 20:24 36.4 62 16 127/43 91 Room Air 05/14/16 20:00 91 Room Air 05/14/16 16:20 36.4 62 16 109/41 94 Room Air 05/14/16 16:00 Room Air General Appearance: WD/WN, no apparent distress Eyes: normal inspection, PERRL, EOMI Neck: supple, no JVD, trachea midline Respiratory/Chest: no respiratory distress, no accessory muscle use, + decreased breath sounds Cardiovascular: regular rate, rhythm, no gallop, no murmur Abdomen: normal bowel sounds, non tender, soft Extremities: normal inspection, no pedal edema, no calf tenderness Neurologic/Psych: alert, oriented x 3 Skin: normal color, no jaundice, no rash Laboratory Results Last 24 Hours Test 05/14/16 15:54 05/14/16 20:42 05/15/16 05:23 Bedside Glucose 162 mg/dl 183 mg/dl White Blood Count 9.66 K/uL Red Blood Count 2.94 M/uL Hemoglobin 10.3 g/dL Hematocrit 30.6 % Mean Corpuscular Volume 104.1 fL Mean Corpuscular Hemoglobin 35.0 pg Mean Corpuscular Hemoglobin Concent 33.7 g/dl RDW Standard Deviation 70.8 fL RDW Coefficient of Variation 21.0 % Platelet Count 208 K/uL Mean Platelet Volume 10.4 fL Nucleated RBC Absolute Count (auto) 0.23 K/uL Nucleated Red Blood Cells % 2.4 % Prothrombin Time 39.7 SECONDS Prothromb Time International Ratio 3.5 Sodium Level 141 mmol/L Potassium Level 3.8 mmol/L Chloride Level 103 mmol/L Carbon Dioxide Level 25 mmol/L Anion Gap 13.0 mmol/L Blood Urea Nitrogen 32 mg/dl Creatinine 5.30 mg/dl Est Creatinine Clear Calc Drug Dose 11.2 ml/min Estimated GFR () 10.7 Estimated GFR (Non- 9.2 BUN/Creatinine Ratio 5.9 Random Glucose 109 mg/dl Calcium Level 7.8 mg/dl Impression Patient is a 81 year old male currently seen for esophageal dysmotility. Initially suspected to have aspiration pneumonia though video swallow study showed no aspiration or penetration. The study did show aperistaltic esophagus but pt denies any s/s of painful swallowing, difficulty w food stuck in throat, abd pain, n/v, distension, weight loss. He did have hx of Zenker's diverticulum , possible Bernstein's and hiatal hernia noted on EGD in 04/2015. Plan In light of pt being asymptomatic, denying trouble eating and swallowing foods; also his other comorbidities, will defer any further workup including repeat endoscopy. Will sign off, call if new questions or concerns arise. I performed a history and physical examination of the patient. I have discussed the patient's case, impression and plan with CORIE Plummer on . Her note reflects my findings and plan. No indication for upper endoscopy at this time. Ken Tracey MD
[2016-05-15] MEDS ORDERED: WARFARIN SOD 2.5 MG TAB PO SCH (16:00)
--- NOTE | 2016-05-15 20:07 | Discharge Summary ---
Discharge Summary Admission Date: May 03, 2016 at 03:34 Discharge Date: May 15, 2016 Discharge Disposition: Rehab Principal Diagnosis: Rt humerus fx, Rt femoral fx Problems/Secondary Diagnoses: s/p Rt hip hemiarthroplasty Post operative Cardiac arrest x 2 (Capo Sandy MD) Problems/Secondary Diagnoses: HTN HLD Afib Diabetes mellitus type II ESRD on hemodialysis CAD Acute on Chronic systolic CHF Rt Humerus fracture Rt femoral fracture Mechanical fall S/p hemiarthroplasty of the Rt Hip Aspiration Pneumonia with ACINETOBACTER BAUMANNII/HAEMOL Esophageal acholasia H/O repair of the Zenker's diverticulum GERD Metabolic encephalopathy secondary to mild anoxic brain injury s/p cardiac arrest-resolved Hypokalemia group home anticoagulation Hypothyroidism Gout Constipation (Abida Rivero MD) Medication Reconciliation New Medications: Levofloxacin (Levaquin) 750 Mg Tab 750 MG PO DAILY for 9 Days, TAB starting on 05/16/16, then 500mg po every other day through 05/24/16 Acetaminophen (Tylenol) 325 Mg Tab 650 MG PO Q4H PRN for Pain or Fever for 30 Days, #240 TAB Calcium Carbonate (Tums) 500 Mg Chew 500 MG PO AC for 30 Days Carvedilol (Carvedilol) 6.25 Mg Tab 6.25 MG PO BID for 30 Days, #60 TAB Docusate Sodium (Docusate Sodium) 100 Mg Cap 100 MG PO BID for 30 Days, #60 CAP Multivitamins/Minerals (Certavite/Antioxidants) 1 Tab Tab 1 TAB PO QAM for 30 Days, #30 TAB Changed Medications: Warfarin Sod (Jantoven) 2.5 Mg Tab 1.25 MG PO DAILY for 30 Days, TAB (Changed from: 4WEEK; Wednesday) BUT HOLD ON 05/15/16 AND RESTART WHEN INR <3 Continued Medications: Allopurinol (Zyloprim) 300 Mg Tab 150 MG PO QAM, TAB Aspirin (Aspirin Ec) 81 Mg Tab 81 MG PO QAM Atorvastatin (Lipitor) 80 Mg Tab 80 MG PO QAM, TAB Brimonidine Tartrate-Timolol M (Combigan) 1 Thao Thao 1 DROP OPB BID Insulin Aspart (Novolog Flexpen) 100 Units/Ml Inj SLIDING SCALE Levothyroxine Sodium (Levothyroxine Sodium) 150 Mcg Tab 1 TAB PO QAM for 30 Days, #30 TAB 5 Refills Ocuvite Preservision (Ocuvite Preservision) 1 Tab Tab 1 TAB PO DAILY, TAB TAKES ANY TIME Oxycodone/Acetaminophen 5MG/325MG (Percocet 5MG/325MG) Tab 1 TABLET PO Q4H PRN for Pain, #15 TAB (This prescription has been renewed) Pantoprazole (Protonix) 40 Mg Tab 40 MG PO DAILY, #30 TAB TAKES ANY TIME DUING THE DAY Polyethylene Glycol 3350 (Miralax) 1 Pow Pow 17 GM PO DAILY PRN for prn, #527 GM Travoprost (Travatan Z) 0.004 % Tuan 1 DROPS OP HS, #2.5 ML 2 Refills Discontinued Medications: Amlodipine (Norvasc) 10 Mg Tab 10 MG PO QAM, TAB Carvedilol (Coreg) 25 Mg Tab 1 TAB PO BID for 90 Days, #180 TAB 1 Refill Glipizide (Glipizide Er) 5 Mg Tab 5 MG PO QAM, 3 Refills Hydralazine HCl (Hydralazine HCl) 50 Mg Tab 50 MG PO TID Insulin Glargine (Lantus Solostar) 100 Unit/Ml Inj 12 UNITS SQ QAM Isosorbide Mononitrate Ext Rel (Imdur Ext Rel) 30 Mg Ertab 1 TAB PO QAM for 30 Days, #30 TAB 5 Refills Metolazone (Metolazone) 5 Mg Tab 5 MG PO QAM Warfarin Sod (Jantoven) 2.5 Mg Tab 2.5 MG PO 3XWEEK, TAB Wednesday Referrals At Discharge Follow up Referrals: Orthopedics Referral - Within 6 Weeks @ [facility] with Gino Alves M.D. Discharge Exam Pt was in dialysis. Pt continues to report Rt arm pain at site of fx though pain medicine had provided significant relief. Rt hip pain was minimal. denies co, sob, nov, trouble swallowing, aspiration , cough General Appearance: WD/WN, no apparent distress Eyes: normal inspection, PERRL, EOMI Neck: supple, trachea midline Respiratory/Chest: lungs clear, normal breath sounds, no respiratory distress Cardiovascular: regular rate, rhythm, no murmur, + pertinent finding ( pacemaker in place) Abdomen: normal bowel sounds, soft Extremities: no pedal edema, no calf tenderness Neurologic/Psychiatric: alert, oriented x 3 Notes: Extremities: no pedal edema, no calf tenderness, + pertinent finding (Left arm swelling, ecchymoses ( non-functional fistula)) Neurologic/Psychiatric: alert, normal mood/affect, oriented x 3 Review of Systems: Constitutional: No chills, No fever Respiratory: No cough, No shortness of breath, No sputum Cardiovascular: No chest pain, No palpitations Abdomen: No nausea, No pain, No vomiting Genitourinary - Male: + problem reported (on dialysis) (Capo Sandy MD) Hospital Course 81 yo M w/ hx of HTN, HLD, Afib, Diabetes , ESRD dialysis , CAD, CHF, p/w Rt Humerus fx and Rt femoral fx secondary to hx of fall, s/p hemiarthroplasty of the Rt Hip on 05/05/16 with subsequent episodes of cardiac arrest x2 with significant recovery transferred from ICU to telemetry Suspected Aspiration Pneumonia - sputum culture grew ACINETOBACTER BAUMANNII/HAEMOL - started on Gentamycin and Levofloxacin 05/10/16, switched Zosyn 3.375mg IV Q12 x 3 days then switched to Cefepime based on sensitivities - Continue Cefepime (Day 4) while is hospital CXR (05/13) showed Cardiomegaly and pulmonary vascular congestion, Mild interstitial edema which modestly improved from 05/10/2016. in addition to Emphysema, Small pleural effusions and right greater than left bibasilar consolidation. - Video swallowing study/Speech Therapy Recommendations: -Overall pt. presents with NO oral or pharyngeal dysphagia. -NO aspiration and NO penetration occurred throughout this study. 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 Recommendin. Dental soft "slippery" diet with thin liquids 2. GERD precautions - smaller more frequent meals, upright for 20min after all intake, no intake 20 min before bed. 3. GI consult to address esophageal dysmotility. 4. HELICOPTER OFFICER will not continue to follow as swallow function is WFL - d/c'd on PO Levaquin [address] dose, 500 mg every other day S/P Post-operative Cardiac arrest resuscitated x 2 Pt coded post-operatively in PACU after tolerating procedure well, was sent to ICU and coded again -placed on pressors, intubated to maintain pressure as he has become acutely hypotensive (05/06) - Pt gradually recovered following stabilization in ICU following cardiac arrests, extubated by (05/09) -He became responsive, communicative, following commands - Etiology of arrests unknown, fat embolus considered , - transferred to telemetry for further care Altered Mental Status: 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 s/p cardiac arrest -improved significantly following extubation ,progressed to near baseline mentation during hospital stay, pt aox3 on exam Leukocytosis resolved -source was likely from suspected Aspiration Pneumonia Hypokalemia resolved w/ dialysis -mild 3.[address] head (05/06/2016): Senescent changes with no hemorrhage, mass effect, or evidence of acute territorial ischemia EEG: indicates structural or functional cerebral dysfunction in the right greater than left hemisphere, no electrographic seizures or epileptiform discharges Per Neurology, will need repeat CT in a few days for evaluation of brain injury as MRI contraindicated due to pacemaker Keppra d/c'd per neurology Repeat CT head (05/14/16) No acute intracranial findings R femoral fracture- s/p Right Hip hemiarthroplasty (05/05/16), as per nursing protocols, avoiding bending trunk past 90 degrees. Rt humerus fracture- conservative management, pain control ESRD Dialysis M, W, F Hx of Afib-Rate controlled. initially started on 2.5mg Warfarin goal INR of 2.0 to 3.0. Stopped heparin, Cardiology input appreciated -changed Warfarin to 2.5 mg 3 x/wk , 1.25 mg 4x/wk INR 3.5, F/U repeat INR Coumadin 1.25 mg, hold until INR < 3 CAD - Continue Atorvastatin, ASA - held Imdur, b-harry DM2 - c/w Novolog, Sliding scale Hx of HTN, Ischemic Cardiomyopathy, Chronic Systolic Congestive Heart Failure - Norvasc, Imdur, hydralazine held - Per cardiology recommendations: Coreg 6.25 mg b.i.d. Hypothyroid - c/w Synthroid 150mcg daily Gout - Continue Allopurinol Constipation (resolved) - Had BM overnight DVT Proph anticoagulated with Coumadin Dispo: Full Code, Telemetry, Total Time Spent: Less than 30 minutes This includes examination of the patient, discharge planning, medication reconciliation, and communication with other providers. (Capo Sandy MD) Discharge Instructions Please refer to the electronic Patient Visit Report (Discharge Instructions) for additional information. (Capo Sandy MD) Follow-Up F/U with Dr. Alves (Orthopedics) F/U with Dr. Ramirez (Capo Sandy MD) Additional Copies To Zoie Bender Reviewed: Pt Seen/Exam by Me, HO Notes, Labs, RAD (Abida Rivero MD) History Resident Physician Supervision Note: I interviewed and examined the patient. Discussed with Dr. Sandy and agree with findings and plan as documented in the note. Any exceptions or clarifications are listed here: Feeling fairly well. No concerns. Eating and drinking without any coughing or chest pains, no dysphagia or odynophagia. Vitals reviewed Alert, awake, oriented and no confusion Irreg irreg pulm crackles at bases, otherwise clear R TIJ in place and LIJ CVC in place without surrounding erythema Abd: +BS soft NT ND Ext 1+ pitting edema, chronic venous stasis changes, right hip incision c/d/i, right humerus with large green ecchymosis and TTP A/P: 81 yo male with multiple medical problems, here with fall sustaining Right humerus and Right hip fractures, and had cardiac arrest x 2 post-op requiring mechanical ventilation, unclear etiology of arrest but fat embpolus vs PE considered. Continue HD as scheduled, Ortho management appreciated for fractures , needs SNF placement vs acute rehab. Appreciate Cardiology management. Titrated up on Coreg as BP tolerates to 6.25 bid and can consider adding back Imdur, hydralazine when possible but BPs not elevated at this time. Continue Cefepime for aspiration PNA and switch to po Levaquin to finish out course of 14 days if d/c'd to SNF. Speech therapy recommending GI consultation for aperistalsis of esophagus, but no aspiration--> GI consultation said as pt is asymptomatic, no further evaluation or treatment for esophageal dysmotility is needed at this time. Repeat head CT to assess for ischemic brain injury as per Neuro recs was with nothing new. d/c to [facility] today Documented By: Abida Rivero (Abida Rivero MD)
[2016-06-12] MEDS ORDERED: CARV6.252 PO (10:53)
[2017-01-22] MEDS ORDERED: [UNRECOGNIZED DRUG - SUPPLY] TOP (11:21)
[2017-01-22] MEDS ORDERED: CALC500C3 PO (11:21)
[2017-01-22] MEDS ORDERED: NUTR-7 PO (11:21)
[2017-01-22] MEDS ORDERED: [UNRECOGNIZED DRUG - CODE] TOP (11:21)
[2017-01-22] MEDS ORDERED: LEVO175T3 PO (11:21)
[2017-01-22] MEDS ORDERED: LIDO1CRE16 TOP (11:21)
[2017-01-22] MEDS ORDERED: GUAI100S75 PO (11:24)
[2017-01-22] MEDS ORDERED: MENTOIN TOP (11:26)
== END 2016-05-15 17:16 | DRG 469 ==
LOC: ENRESERVTM → CANRESERV → ENRESERVDT → EDBD 23:31 → C.EDA 23:32 → C.2T 05-03 03:34 → CANBEDREQ 05-05 17:20 → C.MSICU 05-05 18:21 → C.2E 05-10 15:48
PROVIDERS: ADMIT Internal Medicine; ATTEND Family Medicine
PROC: 0B9J8ZX Drainage of Left Lower Lung Lobe, Via Natural or Artificial Opening Endoscopic, Diagnostic (ICD-10-PCS; 2016-05-05)
PROC: 0SRR0J9 Replacement of Right Hip Joint, Femoral Surface with Synthetic Substitute, Cemented, Open Approach (ICD-10-PCS; principal; 2016-05-05 13:30)
PROC: 5A1945Z Respiratory Ventilation, 24-96 Consecutive Hours (ICD-10-PCS; 2016-05-06)
PROC: 0BH17EZ Insertion of Endotracheal Airway into Trachea, Via Natural or Artificial Opening (ICD-10-PCS; 2016-05-06)
DX: S72.011A Unspecified intracapsular fracture of right femur, initial encounter for closed fracture (principal); N18.6 End stage renal disease; I46.9 Cardiac arrest, cause unspecified; J96.01 Acute respiratory failure with hypoxia; I50.23 Acute on chronic systolic (congestive) heart failure; J69.0 Pneumonitis due to inhalation of food and vomit; R57.8 Other shock; I13.2 Hypertensive heart and chronic kidney disease with heart failure and with stage 5 chronic kidney disease, or end stage renal disease; G93.1 Anoxic brain damage, not elsewhere classified; E87.1 Hypo-osmolality and hyponatremia; E87.2 Acidosis; S42.211A Unspecified displaced fracture of surgical neck of right humerus, initial encounter for closed fracture; I48.2 Chronic atrial fibrillation; I25.10 Atherosclerotic heart disease of native coronary artery without angina pectoris; Z99.2 Dependence on renal dialysis; E11.22 Type 2 diabetes mellitus with diabetic chronic kidney disease; Z79.01 Long term (current) use of anticoagulants; E03.9 Hypothyroidism, unspecified; E78.5 Hyperlipidemia, unspecified; Z95.810 Presence of automatic (implantable) cardiac defibrillator; Z87.891 Personal history of nicotine dependence; Z79.4 Long term (current) use of insulin; Z79.82 Long term (current) use of aspirin; Z79.899 Other long term (current) drug therapy; M10.9 Gout, unspecified; E78.00 Pure hypercholesterolemia, unspecified; I25.5 Ischemic cardiomyopathy; I25.2 Old myocardial infarction; Z87.19 Personal history of other diseases of the digestive system; K22.4 Dyskinesia of esophagus; E11.51 Type 2 diabetes mellitus with diabetic peripheral angiopathy without gangrene; E11.65 Type 2 diabetes mellitus with hyperglycemia; I08.0 Rheumatic disorders of both mitral and aortic valves; K59.00 Constipation, unspecified; E87.6 Hypokalemia; I49.3 Ventricular premature depolarization; K21.9 Gastro-esophageal reflux disease without esophagitis; W19.XXXA Unspecified fall, initial encounter; D72.829 Elevated white blood cell count, unspecified; Y92.009 Unspecified place in unspecified non-institutional (private) residence as the place of occurrence of the external cause; R56.9 Unspecified convulsions; I95.81 Postprocedural hypotension; D64.9 Anemia, unspecified

== ENCOUNTER 2016-07-13 05:31 | Day surgery (SDC) | payer BC ==
[~2016-07-13] VITALS: Ht 170.2 cm; Wt 80.0 kg
[~2016-07-13 05:31] MED LIST changes: -AMLO-114 PO; -APR50 PO; -CARV25TA2 PO; +CARV6.252 PO; +CNT PO; +CRG625 PO; -GLIP-197 PO; -INSDGIPEN SQ; -ISOS30TA3 PO; -NVLGI/PEN; -POLY335019 PO; +TUMS PO; +TYL325X PO; -ZRX5 PO
[2016-07-13 05:50] VITALS: BP 121/47; PULSE 67; TEMP 36.3; O2SAT 97; Ht 170.2 cm; Wt 80.0 kg
[2016-07-13] MEDS ORDERED: D5W AND 1/4NSS 1,000 ML IV ONE (06:00)
[2016-07-13 06:33] LABS: INR 2.4 (0.9-1.1); PARTIAL THROMBOPLASTIN RATIO 1.3; PROTHROMBIN TIME (PATIENT) 26.1 SECONDS (9.0-12.0)
[2016-07-13 06:44] LABS: POTASSIUM 4.4 mmol/L (3.5-5.1)
[2016-07-13] MEDS ORDERED: WARF2TAB PO (06:48)
[2016-07-13] MEDS ORDERED: MULT-513 PO (06:49)
[2016-07-13] MEDS ORDERED: OXYC-57 PO (06:49)
[2016-07-13] MEDS ORDERED: CALC500C3 PO (06:50)
[2016-07-13] MEDS ORDERED: NEPHRO PO (06:52)
[2016-07-13] MEDS ORDERED: ACET-1311 PO (06:52)
[2016-07-13] MEDS ORDERED: MIDAZOLAM HCL 1 MG/ML 2ML VIAL ONE (07:18)
[2016-07-13] MEDS ORDERED: FENTANYL CITRATE INJ 50 MCG/1 ML 2 ML VIAL ONE (07:18)
--- NOTE | 2016-07-13 07:54 | History and Physical ---
History & Physical Date of Service Jul 13, 2016. History & Physical Chief Complaint: End stage renal disease, left arm swelling History of Present Illness The patient is a 80 year old male with multiple medical problems, He had a wrist fistula done in the past which did not mature enough to be useable. This was revised. He has since developed more swelling of the left arm Allergies Coded Allergies: No Known Allergies (Unverified , 08/25/15) Surgical / Medical History Hx Cardiac Surgery: Yes (AICD) Hx Abdominal Surgery: No Hx Cancer Surgery: No Hx Thoracic Surgery: No Hx Orthopedic: Yes (Broken arm) Hx Urinary Tract Surgery: No HX Other Surgery: Yes (esophageal surgery, ) Past Medical/Surgical History: Kidney Disease Family History No significant family history Social History Smoking Status: Never Smoker Hx Tobacco Use In Past Year?: No Hx Alcohol Use - Type & Amnt: Yes (OCC BEER ) Hx Substance Use -Type & Amnt: No Review of Systems Constitutional: No chills, No fever, No malaise Skin: No change in color Eyes: No visual changes ENMT: No sore throat Respiratory:, No SOB or cough, No hemoptysis Cardiovascular: + edema, No chest pain, No intermittent claudication, No palpitations Gastrointestinal: No abdominal pain, No nausea, No vomiting Neurologic: No dizziness, No headache Physical Exam: Constitutional: General Apperance: well-nourished, well-developed, too thin Level of Distress: NAD, acutely ill, chronically ill Psychiatric: Mental Status: active & alert, normal mood, normal affect Orientation: oriented except where noted, to time, to place, to person Memory: recent memory abnormal, remote memory abnormal (vague, poor historian) Head: normocephalic, atraumatic Eyes: EOM: EOMI ENMT: normal ENT inspection, hearing grossly normal Neck: supple, trachea midline Lungs: Respiratory effort: dyspneic, tachypneic Auscultation: breath sounds normal, no expiratory wheezing, wet rales/ crackles Cardiovascular: Apical Impulse: not displaced Heart Auscultation: no murmurs, no rubs, no gallops, pertinent finding ( irregular) Peripheral Pulses: Pulses: full and equal, in all extremities except if noted Bruits: none appreciated Carotid Pulse: normal on the left, normal on the right Brachial Pulses: normal on the left, normal on the right Radial Pulse: normal on the left, normal on the right Ulnar Pulse: normal on the left, normal on the right Femoral Pulse: normal on the left, normal on the right Posterior Tibialis Pulse: decreased on the left, decreased on the right Dorsalis Pedis Pulse: decreased on the left, decreased on the right Abdomen: Bowel Sounds: normal Inspection & Palpation: soft, non-distended, no tenderness, guarding & rebound Musculoskeletal: normal strength (5/5 throughout), normal tone Extremities: Upper Right: no cyanosis, no edema, no varicosities Upper Left: no cyanosis, significant edema, no varicosities Lower Right: no cyanosis, no varicosities, no palpable cord, edema, ulcers Lower Left: no cyanosis, no varicosities, no palpable cord, edema, ulcers Neurologic: Cranial Nerves: grossly intact Sensation: grossly intact ASSESSMENT and PLAN: End stage renal disease Left arm swelling Plan: Patient admitted for a left arm fistulogram with possible intervention. I have discussed the risks options and benefits of the procedure with the patient. The patient understands the risks options and benefits and agrees to the procedure.
--- NOTE | 2016-07-13 07:59 | Procedure Note ---
Pre-Mod Sedation Assessment General Date of Moderate Sedation: Jul 13, 2016. Vital Signs: Vital Signs Past 12 Hours Date Time Temp Pulse Resp B/P Pulse Ox O2 Delivery O2 Flow Rate FiO2 07/13/16 05:50 36.3 67 22 121/47 97 Room Air Pre-Sedation Airway Assessment Oral Cavity: Dentures, WNL Smoking Status: Former Smoker Mallampati Classification: Class I ASA Classification: Class II Notes The planned sedation has been discussed with the patient and consent obtained. I have identified the patient, determined the appropriateness of sedation and have assessed the patient immediately prior to the procedure. All medicine(s) and interventions are by my order.
[2016-07-13] MEDS: CEFAZOLIN 1000MG/55 ML D5W IV SCH ×2 (08:00→08:08)
[2016-07-13] MEDS ORDERED: LIDOCAINE HCL 1% 20 ML VIAL INJ ONE (08:38)
[2016-07-13] MEDS ORDERED: OPTIRAY 300 IV ONE (08:55)
--- NOTE | 2016-07-13 09:06 | [facility] Post Operative Brief Note ---
Immediate Operative Summary Operative Date Jul 13, 2016. 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
--- NOTE | 2016-07-13 09:11 | Discharge Instructions ---
Discharge Instructions Date of Service Jul 13, 2016. Visit Reason for Visit: End Stage Renal Disease Discharge Discharge Diagnosis / Problem: Left arm swelling Discharge Goals Goal(s): Diagnostic testing Activity Recommendations Activity Limitations: per Instructions/Follow-up section Anesthesia . Post Anesthesia Instructions: If you have had General Anesthesia or IV Sedation: * Do not drive today. * Resume driving when surgeon permits. * Do not make important decisions or sign legal documents today. * Call surgeon for: 1. Temperature elevations greater than 101 degrees F. 2. Uncontrollable pain. 3. Excessive bleeding. 4. Persistent nausea and vomiting. 5. Medication intolerance (nausea, vomiting or rash). * For nausea and vomiting use only clear liquids such as: tea, soda, bouillon until nausea subsides, then gradually increase diet as tolerated. * If you have any concerns or questions, call your surgeon's office. If physician is unavailable and it is an emergency, call 911 or go to the nearest emergency room. . Instructions / Follow-Up Instructions / Follow-Up May use fistula. Call [phone] with any questions or concerns. SPECIAL CARE INSTRUCTIONS: Medications: * Continue to take your medications as directed. If you have been given a prescription for Plavix, please fill it immediately and take as directed. Incision Care: * Your puncture site may have some bruising and minor swelling for about one week. * You will have a small dressing covering your puncture site. You may remove the dressing after 24 hours and shower. You may let the warm soapy water run over it, but be sure to dry the puncture site well and keep it dry. * DO NOT IMMERSE THE INCISION IN A TUB/POOL/etc. UNTIL HEALED. * Puncture sites should be kept covered with a band-aid until it begins to heal. Restrictions: * Depending on whether you leg or arm was punctured to access the arteries, you will be required to lay flat, hold your arm still, or both, for about 4 hours after the procedure to prevent bleeding. * Limit your activity for the first 48 hours. You may walk and go up and down steps. Avoid excessive bending or movement at the puncture site. Possible Complications: * Excessive Swelling - after blood flow is improved you may notice increased swelling in the lower legs. This is a normal response. This usually depends on the amount of blockages in the leg, how long they have been there prior to your procedure and how much blood flow was restored. Elevating your legs will help to improve this. Please notify our office ([phone] ) if the swelling does not go away after lying in bed overnight. * Infection/Drainage/Bleeding - Drainage or bleeding from the puncture site should be minimal. If you have excessive bleeding or drainage, call our office ([phone]) right away. * Pain - You may experience some mild pain or soreness at your puncture site. If your pain does not improve, please contact our office ([phone]). Call your doctor and seek emergent treatment if you develop: * Temperature above 101 degrees * Any fever or chills * Any redness or purulent drainage from the puncture site * Any new dusky/blue colored toes or feet with coolness or sharp or aching pain. SKIN IRRITATION: * You may experience some redness and/or swelling in the area where radiation was administered. If any skin irritation occurs, please contact your family physician. FOLLOW UP VISIT: Keep any scheduled doctor appointments. Diet Recommendations Recommended Home Diet: resume previous diet Procedures Procedures Performed: Fistulogram Pending Studies Studies pending at discharge: no Medical Emergencies . Who to Call and When: Medical Emergencies: If at any time you feel your situation is an emergency, please call 911 immediately. . Non-Emergent Contact Non-Emergency issues call your: Surgeon . . "Provider Documentation" section prepared by Valeriy Dia.
[2016-07-13 09:15] VITALS: BP 109/34; PULSE 60; TEMP 36.3; O2SAT 94
[2016-07-13 09:45] VITALS: BP 114/43; PULSE 63; TEMP 36.7; O2SAT 95
--- NOTE | 2016-07-13 09:49 | DIAGNOSTIC IMAGING REPORT ---
DATE OF PROCEDURE: 07/13/2016 PREOPERATIVE DIAGNOSIS: Malfunctioning left arm antecubital AV fistula. POSTOPERATIVE DIAGNOSIS: Same. PROCEDURE PERFORMED: Left upper extremity fistulogram (diagnostic only). SURGEON: Dr. Valeriy Dia. FOOD PROCESSOR: Dr. Otf Buchanan. ANESTHESIA: Local anesthesia only. ESTIMATED BLOOD LOSS: 5 mL. COMPLICATIONS: None. INDICATIONS: This is an 81-year-old gentleman with end-stage renal disease currently on dialysis. He previously underwent a left wrist fistula. Approximately 1 month ago he underwent placement of an antecubital left brachiocephalic AV fistula. He continues to dialyze via a right-sided catheter. He also has a pacemaker on the left side. He had some issues with swelling and therefore a fistulogram was indicated. Risks, benefits, alternatives were explained to the patient and he agreed to proceed. DESCRIPTION OF PROCEDURE: The patient was brought to the endovascular suite and appropriately identified. Appropriate surgical prophylactic antibiotics were administered within 1 hour of the incision. A surgical timeout was performed and all parties agreed to the patient and procedure to be performed. Left upper extremity was prepped and draped in normal sterile fashion. Approximately 1 mL of local anesthetic was used. Next, the fistula was accessed on the first attempt with a micropuncture needle. This was upsized over a wire to a micropuncture sheath. Injection was performed through the sheath showed a widely patent cephalic vein. 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 This was in conjunction with his cardiac pacemaker. We then upsized to a 5-Chilean sheath over a Glidewire. Both the glide catheter and a Quick-Cross catheter were used in conjunction with a Glidewire to attempt to cross this occlusion. Unfortunately, we were unsuccessful. 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 There was a small amount of extravasation. At this point, the procedure was terminated. The patient was awakened from anesthesia and transferred to recovery room in satisfactory condition. He continued to have a good thrill in the fistula at the end of the procedure. I, Dr. Dia was present and scrubed for the entire procedure. [facility] CENTERWaylon
[2017-01-22] MEDS ORDERED: CALC500C3 PO (11:21)
[2017-01-22] MEDS ORDERED: [UNRECOGNIZED DRUG - CODE] TOP (11:21)
[2017-01-22] MEDS ORDERED: LIDO1CRE16 TOP (11:21)
[2017-01-22] MEDS ORDERED: LEVO175T3 PO (11:21)
[2017-01-22] MEDS ORDERED: NUTR-7 PO (11:21)
[2017-01-22] MEDS ORDERED: [UNRECOGNIZED DRUG - SUPPLY] TOP (11:21)
[2017-01-22] MEDS ORDERED: GUAI100S75 PO (11:24)
[2017-01-22] MEDS ORDERED: MENTOIN TOP (11:26)
== END 2016-07-13 10:20 | disposition home or self-care (01) ==
LOC: C.ACU 05:31
PROVIDERS: ATTEND Surgery Vascular Surgery
DX: N18.6 End stage renal disease (principal); M79.89 Other specified soft tissue disorders; Z99.2 Dependence on renal dialysis; Z95.810 Presence of automatic (implantable) cardiac defibrillator; Z87.81 Personal history of (healed) traumatic fracture

== ENCOUNTER 2016-08-13 17:41 | Observation (INO) | payer BC ==
[~2016-08-13] VITALS: Ht 180.3 cm; Wt 74.1 kg
[~2016-08-13 17:41] MED LIST changes: +ACET-1311 PO; +CALC500C3 PO; -CNT PO; -CRG625 PO; +MULT-513 PO; +NEPHRO PO; -TUMS PO; -TYL325X PO; -WARF2.5T8 PO; +WARF2TAB PO
[2016-08-13] MEDS ORDERED: GELATIN SPONGE 12-7MM EXT ONE (18:15)
[2016-08-13] MEDS ORDERED: TMPOPS15 OPB (18:15)
[2016-08-13] MEDS ORDERED: PHYTONADIONE INJ 10 MG in SODIUM CHLORIDE 0.9% 50ML 50 ML IV STA (18:23)
[2016-08-13 18:33] LABS: ISTAT HEMOGLOBIN 12.2 g/dl (14.0-18.0)
[2016-08-13 18:42] LABS: BASO % 0.5 %; BASO ABS # 0.04 K/uL (0-0.2); COMPLETE YES; EOS % 2.9 %; HEMATOCRIT 34.5 % (42-52); IG% 0.7 %; LYMPH % 26.6 %; LYMPH ABS # 2.04 K/uL (1.2-3.4); MEAN CELL VOLUME 107.5 fL (80-100); MEAN CORPUSCULAR HEMOGLOBIN 35.8 pg (25-34); MEAN CORPUSCULAR HGB CONC 33.3 g/dl (32-36); MEAN PLATELET VOLUME 10.5 fL (7.4-10.4); MONO % 11.7 %; NEUT % 57.6 %; PLATELET COUNT 192 K/uL (130-400); RED BLOOD COUNT 3.21 M/uL (4.7-6.1); WHITE BLOOD COUNT 7.68 K/uL (4.8-10.8)
[2016-08-13] MEDS ORDERED: PROTHROMBIN COMP CONC- KCENTRA 2,000 UNIT in SYRINGE 0 ML IV STA (18:55)
[2016-08-13] MEDS ORDERED: PROTHROMBIN COMP CONC- KCENTRA 2,000 UNIT in SYRINGE 0 ML IV SCH (19:00)
[2016-08-13 19:06] LABS: BUN/CREATININE RATIO 8.3 (10-20); CALCIUM 8.3 mg/dl (8.5-10.1); CREATININE 3.4 mg/dl (0.60-1.40); POTASSIUM 4.8 mmol/L (3.5-5.1)
[2016-08-13 19:48] LABS: PROTHROMBIN TIME (PATIENT) 40.1 SECONDS (9.0-12.0)
[2016-08-13 19:49] LABS: INR 3.6 (0.9-1.1)
[2016-08-13 19:51] LABS: PARTIAL THROMBOPLASTIN RATIO 9.5
[2016-08-13 20:56] LABS: MAGNESIUM 2.1 mg/dl (1.8-2.4)
--- NOTE | 2016-08-13 21:04 | DIAGNOSTIC IMAGING REPORT ---
CHEST ONE VIEW PORTABLE HISTORY: Short of breath. COMPARISON: Chest 05/13/2016. FINDINGS: Mild bibasilar interstitial thickening. The upper lung zones are clear. No new focal lung consolidations to suggest pneumonia. No evidence for pulmonary edema. Left-sided pacemaker/defibrillator. Right jugular catheter terminates in the SVC. The heart remains mildly enlarged. IMPRESSION: 1. Mild cardiomegaly, unchanged. 2. Mild bibasilar interstitial thickening which could represent early congestive change. This has improved. Electronically signed by: Jose G Rodriguez M.D. 08/13/2016 9:02 PM Dictated Date/Time: 08/13/2016 9:00 PM
[2016-08-13] MEDS ORDERED: OXYCODONE/ACETAMINOPHEN 5-325 TAB PO PRN (23:00)
--- NOTE | 2016-08-13 23:00 | History and Physical ---
History & Physical Date & Time of Service: Aug 13, 2016 at 23:00 Chief Complaint: Dialysis Pat/ Fistula Is Bleeding Primary Care Physician: Vivek Ramirez M.D. History of Present Illness 81-year-old male with past medical history of hypertension, hyperlipidemia, atrial fibrillation on Coumadin, type 2 diabetes, end-stage renal disease on hemodialysis, coronary artery disease, acute on chronic systolic CHF, right humerus fracture after a mechanical fall, status post delicia-arthroplasty of right hip, GERD presented to the ER after he had constant bleeding from fistula in his left upper extremity after he had finished dialysis this afternoon. While at the [facility] the staff was unable to control his bleeding and he was sent to the ER. In the ER his INR was found to be supratherapeutic at 3.9 and he was given vitamin K and Kcentra per hematology recommendations. Vascular surgery was also consulted who recommended placement of Surgicel and application of pressure. The bleeding was controlled and he was admitted for further monitoring. Past Medical/Surgical History Medical Problems: (1) Altered mental status Status: Chronic (2) Atrial fibrillation Status: Chronic (3) Congestive heart failure Status: Chronic (4) Diabetes Status: Chronic (5) End stage renal disease Status: Chronic Family History No significant family history Social History Smoking Status: Former Smoker Drug Use: none Marital Status: Occupational Status: retired Multi-Drug Resistant Organisms History of MDRO: No Allergies Coded Allergies: No Known Allergies (Unverified , 08/13/16) Home Medications Scheduled Allopurinol (Zyloprim), 150 MG PO QAM Calcium Carbonate (Tums), 1 TAB TID Carvedilol (Coreg), 1 TAB PO BID Levothyroxine Sodium (Levothyroxine Sodium), 175 MCG PO QAM Multivitamins/Minerals (Mvi With Minerals), 1 TAB PO DAILY Ocuvite Preservision (Ocuvite Preservision), 1 TAB PO DAILY Pantoprazole (Protonix), 40 MG PO DAILY Timolol Maleate (Timolol 0.5% Oph Soln 15 Ml), 1 DROP OPB BID Travoprost (Travatan Z), 1 DROPS OP HS [nephro], 8 OZ PO TID Scheduled PRN Oxycodone/Acetaminophen 5MG/325MG (Percocet 5MG/325MG), 1 TABLET PO Q4H PRN for Pain Miscellaneous Medications Acetaminophen (Tylenol), 650 MG PO Review of Systems Constitutional: No chills, No fever Eyes: No worsening of vision ENT: + hearing loss Respiratory: No cough, No shortness of breath Cardiovascular: No chest pain Abdomen: No pain Hematologic / Lymphatic: + abnormal bleeding/bruising (from fistula site) Physical Exam Vital Signs Date Time Temp Pulse Resp B/P Pulse Ox O2 Delivery O2 Flow Rate FiO2 08/13/16 21:30 72 14 98 08/13/16 21:00 62 13 99 08/13/16 21:00 118/79 08/13/16 20:30 63 16 98 08/13/16 20:00 57 19 98 08/13/16 19:30 64 20 95 08/13/16 19:14 63 17 112/74 97 Room Air 08/13/16 18:10 66 08/13/16 17:58 36.4 80 20 119/78 94 Room Air General Appearance: WD/WN, no apparent distress Head: normocephalic Eyes: normal inspection ENT: normal ENT inspection, + pertinent finding (hearing loss) Neck: supple Respiratory/Chest: chest non-tender, lungs clear, normal breath sounds, no respiratory distress Cardiovascular: regular rate, rhythm Abdomen/GI: normal bowel sounds, non tender, soft Extremities/Musculoskelatal: + pertinent finding (left sided fistula covered in dressing) Neurologic/Psych: normal mood/affect Skin: + pertinent finding (chronic venous stasis. Left foot decubitus ulcers covered in dressing) Diagnostics Laboratory Results Results Past 24 Hours Test 08/13/16 18:10 08/13/16 18:17 Range/Units White Blood Count 7.68 4.8-10.8 K/uL Red Blood Count 3.21 4.7-6.1 M/uL Hemoglobin 11.5 14.0-18.0 g/dL Hematocrit 34.5 42-52 % Mean Corpuscular Volume 107.5 80-100 fL Mean Corpuscular Hemoglobin 35.8 25-34 pg Mean Corpuscular Hemoglobin Concent 33.3 32-36 g/dl Platelet Count 192 130-400 K/uL Mean Platelet Volume 10.5 7.4-10.4 fL Neutrophils (%) (Auto) 57.6 % Lymphocytes (%) (Auto) 26.6 % Monocytes (%) (Auto) 11.7 % Eosinophils (%) (Auto) 2.9 % Basophils (%) (Auto) 0.5 % Neutrophils # (Auto) 4.43 1.4-6.5 K/uL Lymphocytes # (Auto) 2.04 1.2-3.4 K/uL Monocytes # (Auto) 0.90 0.11-0.59 K/uL Eosinophils # (Auto) 0.22 0-0.5 K/uL Basophils # (Auto) 0.04 0-0.2 K/uL RDW Standard Deviation 62.0 36.4-46.3 fL RDW Coefficient of Variation 15.7 11.5-14.5 % Immature Granulocyte % (Auto) 0.7 % Immature Granulocyte # (Auto) 0.05 0.00-0.02 K/uL Prothrombin Time 40.1 9.0-12.0 SECONDS Prothromb Time International Ratio 3.6 0.9-1.1 Activated Partial Thromboplast Time 250.9 21.0-31.0 SECONDS Partial Thromboplastin Ratio 9.5 Sodium Level 137 136-145 mmol/L Potassium Level 4.8 3.5-5.1 mmol/L Chloride Level 97 98-107 mmol/L Carbon Dioxide Level 35 21-32 mmol/L Anion Gap 5.0 20.0 16-25 mmol/L Blood Urea Nitrogen 28 7-18 mg/dl Creatinine 3.40 0.60-1.40 mg/dl Est Creatinine Clear Calc Drug Dose 17.5 ml/min Estimated GFR () 18.3 Estimated GFR (Non- 15.8 BUN/Creatinine Ratio 8.3 10-20 Random Glucose 257 70-99 mg/dl Calcium Level 8.3 8.5-10.1 mg/dl Magnesium Level 2.1 1.8-2.4 mg/dl Total Bilirubin 0.7 0.2-1 mg/dl Direct Bilirubin 0.3 0-0.2 mg/dl Aspartate Amino Transf (AST/SGOT) 22 15-37 U/L Alanine Aminotransferase (ALT/SGPT) 25 12-78 U/L Alkaline Phosphatase 128 45-117 U/L Total Protein 7.6 6.4-8.2 gm/dl Albumin 2.9 3.4-5.0 gm/dl Bedside Hemoglobin 12.2 14.0-18.0 g/dl Bedside Hematocrit 36 42-52 % Bedside Sodium 136 135-144 mEq/L Bedside Potassium 4.8 3.3-5.0 mEq/L Bedside Chloride 93 101-112 mEq/L Bedside Total CO2 29 24-31 mEq/l Bedside Blood Urea Nitrogen 27 7-18 mg/dl Bedside Creatinine 3.0 0.6-1.3 mg/dl Bedside Glucose (other) 243 70-99 mg/dl Bedside Ionized Calcium (Elijah) 1.00 1.12-1.32 mmol/l Impression Assessment and Plan 81-year-old male with past medical history of hypertension, hyperlipidemia, atrial fibrillation on Coumadin, type 2 diabetes, end-stage renal disease on hemodialysis, coronary artery disease, acute on chronic systolic CHF, right humerus fracture after a mechanical fall, status post delicia-arthroplasty of right hip, GERD presented to the ER after he had uncontrolled bleeding from fistula in his left upper extremity after he had finished dialysis this afternoon. Was found to have a supratherapeutic INR which was reversed with vitamin K and Kcentra. Bleeding was controlled with manual pressure. Bleeding from fistula : - controlled with manual pressure - Consult vascular surgery - Hold Coumadin Supratherapeutic INR - Initial INR 3.9 - Received 10 mg vitamin K and Kcentra - Hold Coumadin and monitor INR Old Right shoulder fracture: - Secondary to mechanical fall - Pain control with Percocet as needed Coronary artery disease/HTN/Atrial fib - Continue carvedilol - Hold Coumadin ESRD : - Had a dialysis session today - Cr at 3.5 - Monitor creatinine Hypothyroidism -Continue Synthroid DVT prophylaxis: SCDs Disposition: Admitted to telemetry, monitor bleeding. Level of Care Telemetry VTE Prophylaxis VTE Risk Assessment Done? Y/N: Yes Risk Level: Moderate Given or contraindicated: SCD's Resident Tracking Resident Involvement: Resident Care Provided Care Provided: Adult Hospital Medicine Assessment and Plan Attending Addendum: I have physically seen and examined this patient, have directed their medical care, have supervised the medical residents activities, and agree with the H&P as noted above, with the following changes: NONE
[2016-08-14] VITALS (8 sets, daily range): BP systolic 93–142; BP diastolic 32–77; PULSE 60–79; TEMP 36.3–37; O2SAT 90–98; Ht 180.3 cm; Wt 74.1 kg
--- NOTE | 2016-08-14 00:41 | EMERGENCY ROOM VISIT NOTE ---
History Report prepared by Prema: Bettina Oliver Under the Supervision of: Dr. Abdi Schwarz M.D. First contact with patient: 17:52 Chief Complaint: BLEEDING Stated Complaint: DIALYSIS PAT/ FISTULA IS BLEEDING History of Present Illness The patient is a 81 year old male who presents to the Emergency Room with complaints of constant bleeding from a fistula in the left upper extremity for at least the past 2 hours. The patient went to dialysis today where they accessed his fistula. Per EMS, the patient returned to [facility] after dialysis around 4:30pm. Staff at [facility] noticed heavy bleeding from the patient's fistula when he arrived back. They wrapped his left arm in towels and put ice on it. An hour later the patient was still bleeding so EMS was called. EMS states that the blood was "just pouring out of him" when they arrived on scene. The patient is on Coumadin for atrial fibrillation. 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 Review of Systems See HPI for pertinent positives & negatives. A total of 10 systems reviewed and were otherwise negative. Past Medical & Surgical Medical Problems: (1) access (2) Acute on chronic systolic (congestive) heart failure (3) Acute renal failure (4) Acute renal failure superimposed on stage 4 chronic kidney disease (5) Altered mental status (6) Atrial fibrillation (7) Bleeding (8) Cardiorenal syndrome with renal failure (9) Congestive heart failure (10) Constipation (11) Diabetes (12) Dysphagia (13) End stage renal disease (14) Fracture of right hip (15) Hemorrhage of surgically-created arteriovenous fistula (16) Hemorrhage of surgically-created arteriovenous fistula (17) Hypothyroid (18) Ischemic cardiomyopathy (19) Leukocytosis Surgical Problems: (1) H/O excision of Zenker's diverticulum (2) Post-operative state (3) Post-operative state Family History No significant family history Social History Smoking Status: Former Smoker Drug Use: none Marital Status: Housing Status: assisted living Occupation Status: retired Current/Historical Medications Scheduled Allopurinol (Zyloprim), 150 MG PO QAM Aspirin (Aspirin Ec), 81 MG PO QAM Calcium Carbonate (Tums), 1 TAB TID Carvedilol (Coreg), 1 TAB PO BID Levothyroxine Sodium (Levothyroxine Sodium), 175 MCG PO QAM Multivitamins/Minerals (Mvi With Minerals), 1 TAB PO DAILY Ocuvite Preservision (Ocuvite Preservision), 1 TAB PO DAILY Pantoprazole (Protonix), 40 MG PO DAILY Timolol Maleate (Timolol 0.5% Oph Soln 15 Ml), 1 DROP OPB BID Travoprost (Travatan Z), 1 DROPS OP HS Warfarin Sodium (Coumadin), 2 MG PO DAILY [nephro], 8 OZ PO TID Scheduled PRN Oxycodone/Acetaminophen 5MG/325MG (Percocet 5MG/325MG), 1 TABLET PO Q4H PRN for Pain Miscellaneous Medications Acetaminophen (Tylenol), 650 MG PO Allergies Coded Allergies: No Known Allergies (Unverified , 08/13/16) Physical Exam Vital Signs Date Time Temp Pulse Resp B/P Pulse Ox O2 Delivery O2 Flow Rate FiO2 08/13/16 21:30 72 14 98 08/13/16 21:00 62 13 99 08/13/16 21:00 118/79 08/13/16 20:30 63 16 98 08/13/16 20:00 57 19 98 08/13/16 19:30 64 20 95 08/13/16 19:14 63 17 112/74 97 Room Air 08/13/16 18:10 66 08/13/16 17:58 36.4 80 20 119/78 94 Room Air Physical Exam Constitutional: Vital signs reviewed. Eyes: Pupils are equal round reactive to light. Conjunctiva are noninjected. ENT: Pharynx is clear without erythema or exudate. Mucous membranes are moist. Neck supple without meningeal signs. Respiratory: Clear to auscultation bilaterally. Breath sounds are equal bilaterally. Cardiovascular: Regular rate and rhythm. No rubs or gallops. GI: Soft, nondistended and nontender. Bowel sounds are present. Musculoskeletal: AV fistula in the left upper extremity with very brisk bleeding from 2 puncture sites on the lateral aspect with bright red blood. No peripheral edema. Integumentary: No cyanosis. Neurological: The patient is awake and alert. No focal deficits. Psychiatric: Normal affect. Medical Decision & Procedures Laboratory Results 08/13/16 18:10 Red Blood Count 3.21, Mean Corpuscular Volume 107.5, Mean Corpuscular Hemoglobin 35.8, Mean Corpuscular Hemoglobin Concent 33.3, Mean Platelet Volume 10.5, Neutrophils (%) (Auto) 57.6, Lymphocytes (%) (Auto) 26.6, Monocytes (%) ( Auto) 11.7, Eosinophils (%) (Auto) 2.9, Basophils (%) (Auto) 0.5, Neutrophils # (Auto) 4.43, Lymphocytes # (Auto) 2.04, Monocytes # (Auto) 0.90, Eosinophils # ( Auto) 0.22, Basophils # (Auto) 0.04 08/13/16 18:10 Test 08/13/16 18:10 08/13/16 18:12 08/13/16 18:17 White Blood Count 7.68 K/uL (4.8-10.8) Red Blood Count 3.21 M/uL (4.7-6.1) Hemoglobin 11.5 g/dL (14.0-18.0) Hematocrit 34.5 % (42-52) Mean Corpuscular Volume 107.5 fL (80-100) Mean Corpuscular Hemoglobin 35.8 pg (25-34) Mean Corpuscular Hemoglobin Concent 33.3 g/dl (32-36) Platelet Count 192 K/uL (130-400) Mean Platelet Volume 10.5 fL (7.4-10.4) Neutrophils (%) (Auto) 57.6 % Lymphocytes (%) (Auto) 26.6 % Monocytes (%) (Auto) 11.7 % Eosinophils (%) (Auto) 2.9 % Basophils (%) (Auto) 0.5 % Neutrophils # (Auto) 4.43 K/uL (1.4-6.5) Lymphocytes # (Auto) 2.04 K/uL (1.2-3.4) Monocytes # (Auto) 0.90 K/uL (0.11-0.59) Eosinophils # (Auto) 0.22 K/uL (0-0.5) Basophils # (Auto) 0.04 K/uL (0-0.2) RDW Standard Deviation 62.0 fL (36.4-46.3) RDW Coefficient of Variation 15.7 % (11.5-14.5) Immature Granulocyte % (Auto) 0.7 % Immature Granulocyte # (Auto) 0.05 K/uL (0.00-0.02) Prothrombin Time 40.1 SECONDS (9.0-12.0) Prothromb Time International Ratio 3.6 (0.9-1.1) Activated Partial Thromboplast Time 250.9 SECONDS (21.0-31.0) Partial Thromboplastin Ratio 9.5 Est Creatinine Clear Calc Drug Dose 17.5 ml/min Estimated GFR () 18.3 Estimated GFR (Non- 15.8 BUN/Creatinine Ratio 8.3 (10-20) Calcium Level 8.3 mg/dl (8.5-10.1) Magnesium Level 2.1 mg/dl (1.8-2.4) Total Bilirubin 0.7 mg/dl (0.2-1) Direct Bilirubin 0.3 mg/dl (0-0.2) Aspartate Amino Transf (AST/SGOT) 22 U/L (15-37) Alanine Aminotransferase (ALT/SGPT) 25 U/L (12-78) Alkaline Phosphatase 128 U/L (45-117) Total Protein 7.6 gm/dl (6.4-8.2) Albumin 2.9 gm/dl (3.4-5.0) Bedside Prothrombin Time INR 3.9 (0.9-1.1) Bedside Hemoglobin 12.2 g/dl (14.0-18.0) Bedside Hematocrit 36 % (42-52) Bedside Sodium 136 mEq/L (135-144) Bedside Potassium 4.8 mEq/L (3.3-5.0) Bedside Chloride 93 mEq/L (101-112) Bedside Total CO2 29 mEq/l (24-31) Anion Gap 20.0 mmol/L (16-25) Bedside Blood Urea Nitrogen 27 mg/dl (7-18) Bedside Creatinine 3.0 mg/dl (0.6-1.3) Bedside Glucose (other) 243 mg/dl (70-99) Bedside Ionized Calcium (Elijah) 1.00 mmol/l (1.12-1.32) Laboratory results as reviewed by me. Medications Administered Medications (Trade) Dose Ordered Sig/Summer Route Start Time Stop Time Status Last Admin Dose Admin Gelatin 1 ea 1 ea NOW ONCE EXT 08/13/16 18:15 08/13/16 18:16 DC 08/13/16 18:15 1 EA Phytonadione 10 mg/Sodium Chloride 51 ml @ 102 mls/hr ONE STAT IV 08/13/16 18:23 08/13/16 18:52 DC 08/13/16 18:46 102 MLS/HR Prothrombin Complex Concent (Human)/Syringe (Kcentra/Syringe) 80 ml @ 10 mls/min TODAY@1900 IV 08/13/16 19:00 08/13/16 21:00 DC 08/13/16 19:13 10 MLS/MIN ED Course 1751: The patient was evaluated in room B4B. A complete history and physical exam was performed. 1814: Gelatin EXT 1818: At this time I spoke with Dr. Simms, the head of the anticoagulation clinic. We discussed the patient's case and she recommended vitamin K at this time. 1822: Phytonadione 10 mg/Sodium Chloride 51 ml @ 102 mls/hr IV 1825: I spoke with Dr. Dia of vascular surgery at this time. We discussed the patient's case and he recommended kcentra and hold pressure with Surgicel. 1853: I spoke with Dr. Simms again at this time. She advised 2000 units of kcentra. 1925: I reassessed the patient at this time. The bleeding has stopped and the nurses are going to place a mild compression bandage. The kcentra is currently infusing. 1950: I reassessed the patient at this time. He is resting comfortably and has no bleeding at the site. I discussed the results and treatment plan with the patient and his . I answered all pertaining questions that they had. They expressed understanding and verbalized agreement. 2013: I spoke with Dr. Jackson. We discussed the patient's results and treatment plan. The patient will be evaluated by the [facility] for further management. Medical Decision This is an 81-year-old male who presents with perfuse bleeding from his AV fistula after dialysis. I did perform a limited focused review of portions of the patient's old chart on the electronic medical record. The patient had a fistulogram by Dr. 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 I did evaluate the patient as noted above. The patient has significant bright red bleeding from his left AV fistula. There is a palpable thrill. I did apply Surgifoam to the wound and direct pressure was applied for 40 minutes. IV access was established. The patient was placed on a continuous route delivery clerk. I did order and review the patient's blood work as noted in the electronic medical record. His INR POC is 3.9. I did discuss the case with Dr. Dia who recommended continuing direct pressure without any surgical intervention needed. He recommended reversing the Coumadin. I did discuss the case with Dr. Avelar. I did treat patient with IV vitamin K and case and treated. The bleeding did stop. A mild compressive dressing was applied. I did discuss the case with the hospitalist for further evaluation in the hospital. Consults Time Called: 1814 Consulting Physician: Dr. Simms Returned Call: 1818 At this time I spoke with Dr. Simms, the head of the anticoagulation clinic. We discussed the patient's case and she recommended vitamin K at this time. Additional Consults: Time Called: 1808 Consulted Physician: Dr. Dia Returned Call: 1825 Additional Comments: I spoke with Dr. Dia of vascular surgery at this time. We discussed the patient's case and he recommended kcentra and hold pressure with Surgicel. Time Called: 1999 Consulted Physician: Dr. Jackson Returned Call: 2013 Additional Comments: I spoke with Dr. Jackson. We discussed the patient's results and treatment plan. The patient will be evaluated by the [facility] for further management. Impression Primary Impression: Hemorrhage of arteriovenous fistula Additional Impressions: Supratherapeutic INR Anemia End stage renal disease Critical Care I have personally spent 36 minutes of critical care time in the direct management of this patient. This includes bedside care, interpretation of diagnostic studies and testing, discussion with consultants and patient, and other required patient management activities. This time is in excess of all separately billable procedures. Scribe Attestation The scribe's documentation has been prepared under my direct and personally reviewed by me in its entirety. I confirm that the note above accurately reflects all work, treatment, procedures, and medical decision making performed by me. Departure Information Dispostion Being Evaluated By Hospitalist Referrals Vivek Ramirez M.D. (PCP) Patient Instructions My [facility] Problem Qualifiers Primary Impression: Hemorrhage of arteriovenous fistula Encounter type: initial encounter Qualified Codes: T82.838A - Hemorrhage due to vascular prosthetic devices, implants and grafts, initial encounter Additional Impressions: Anemia Anemia type: unspecified type Qualified Codes: D64.9 - Anemia, unspecified
[2016-08-14] MEDS ORDERED: IV FLUIDS COMPLETED PRN (02:15)
[2016-08-14] MEDS ORDERED: LEVOTHYROXINE 175 MCG TAB PO SCH (06:30)
[2016-08-14 06:57] LABS: HEMATOCRIT 31.7 % (42-52); MEAN CELL VOLUME 107.8 fL (80-100); MEAN CORPUSCULAR HEMOGLOBIN 35.4 pg (25-34); MEAN CORPUSCULAR HGB CONC 32.8 g/dl (32-36); MEAN PLATELET VOLUME 10.2 fL (7.4-10.4); PLATELET COUNT 190 K/uL (130-400); RED BLOOD COUNT 2.94 M/uL (4.7-6.1); WHITE BLOOD COUNT 10.49 K/uL (4.8-10.8)
[2016-08-14 07:12] LABS: INR 1.1 (0.9-1.1); PROTHROMBIN TIME (PATIENT) 12.2 SECONDS (9.0-12.0)
[2016-08-14 07:27] LABS: BUN/CREATININE RATIO 9.1 (10-20); CALCIUM 8.9 mg/dl (8.5-10.1); CREATININE 4.2 mg/dl (0.60-1.40)
[2016-08-14 07:30] LABS: ALB/GLOB RATIO 0.6 (0.9-2)
[2016-08-14] MEDS ORDERED: CARVEDILOL 6.25 MG TAB PO SCH (09:00)
[2016-08-14] MEDS ORDERED: PANTOprazole SOD 40 MG TAB PO SCH (09:00)
[2016-08-14] MEDS ORDERED: ALLOPURINOL 300 MG TAB PO SCH (09:00)
[2016-08-14] MEDS ORDERED: TIMOLOL MALEATE 0.5% OP SOLN 5 ML BTL OPB SCH (09:00)
[2016-08-14] MEDS ORDERED: CEROVITE ADV FORMULA TAB PO SCH ×2 (09:00)
--- NOTE | 2016-08-14 14:10 | Medical Consult ---
Consultation Note Date of Service Aug 14, 2016. Consultation Note History & Physical Chief Complaint: Bleeding from LUE AVF History of Present Illness The patient is a 81 year old male with multiple medical problems, including ESRD on HD, admitted d/t bleeding from LUE AVF after HD yesterday. Pt had a failed L wrist AVF and later a LUE brachiocephalic AVF which is functioning well. 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 Attempted intervention, however, INTEL RECRUITER was unsuccessful. Pt states edema is decreasing. Denies FRANKLIN, fever, chills , chest pain, SOB, abd pain, N/V, rest pain, claudication, other complaints. Bleeding stopped after pressure applied and correction of INR. Allergies Coded Allergies: No Known Allergies (Unverified , 08/25/15) Surgical / Medical History Hx Cardiac Surgery: Yes (AICD) Hx Abdominal Surgery: No Hx Cancer Surgery: No Hx Thoracic Surgery: No Hx Orthopedic: Yes (Broken arm) Hx Urinary Tract Surgery: No HX Other Surgery: Yes (esophageal surgery, AVF creation) Past Medical/Surgical History: Kidney Disease Family History No significant family history Social History Smoking Status: Never Smoker Hx Tobacco Use In Past Year?: No Hx Alcohol Use - Type & Amnt: Yes (OCC BEER ) Hx Substance Use -Type & Amnt: No Review of Systems Constitutional: No chills, No fever, No malaise Skin: No change in color Eyes: No visual changes ENMT: No sore throat Respiratory:, No SOB or cough, No hemoptysis Cardiovascular: + edema, No chest pain, No intermittent claudication, No palpitations Gastrointestinal: No abdominal pain, No nausea, No vomiting Neurologic: No dizziness, No headache Physical Exam: Constitutional: General Apperance: well-nourished, well-developed, too thin Level of Distress: NAD, acutely ill, chronically ill Psychiatric: Mental Status: active & alert, normal mood, normal affect Orientation: oriented except where noted, to time, to place, to person Memory: recent memory abnormal, remote memory abnormal (vague, poor historian) Head: normocephalic, atraumatic Eyes: EOM: EOMI ENMT: normal ENT inspection, hearing grossly normal Neck: supple, trachea midline Lungs: Respiratory effort: No dyspnea Auscultation: breath sounds normal, no expiratory wheezing, wet rales/ crackles Cardiovascular: Apical Impulse: not displaced Heart Auscultation: no murmurs, no rubs, no gallops, pertinent finding ( irregular) Peripheral Pulses: Pulses: full and equal, in all extremities except if noted Bruits: none appreciated Carotid Pulse: normal on the left, normal on the right Brachial Pulses: normal on the left, normal on the right Radial Pulse: normal on the left, normal on the right Ulnar Pulse: normal on the left, normal on the right Femoral Pulse: normal on the left, normal on the right Posterior Tibialis Pulse: decreased on the left, decreased on the right Dorsalis Pedis Pulse: decreased on the left, decreased on the right Abdomen: Bowel Sounds: normal Inspection & Palpation: soft, non-distended, no tenderness, guarding & rebound Musculoskeletal: normal strength (5/5 throughout), normal tone Extremities: Upper Right: no cyanosis, no edema, no varicosities Upper Left: no cyanosis, significant edema, no varicosities. + thrill/ bruit. Bleeding stopped. Lower Right: no cyanosis, no varicosities, no palpable cord, edema, ulcers Lower Left: no cyanosis, no varicosities, no palpable cord, edema, ulcers Neurologic: Cranial Nerves: grossly intact Sensation: grossly intact ASSESSMENT and PLAN: LUE AVF bleeding, resolved ESRD on HD Plan: Pt discussed with Dr Dia. Does not recommend vascular surgical intervention presently. Please call if needed.
--- NOTE | 2016-08-14 17:25 | Discharge Instructions ---
Discharge Instructions Date of Service Aug 14, 2016. Admission Reason for Admission: Hemorrage Of Surgically-Created Arteriovenous Discharge Discharge Diagnosis / Problem: fistula bleeding Discharge Goals Goal(s): Improve disease control Activity Recommendations Activity Limitations: resume your previous activity . Instructions / Follow-Up Instructions / Follow-Up Primary care physician in 1 week Current Hospital Diet Patient's current hospital diet: Regular Diet Discharge Diet Recommended Diet: Low Sodium Diet (2gm Na), Renal Diet Pending Studies Studies pending at discharge: no Medical Emergencies . Who to Call and When: Medical Emergencies: If at any time you feel your situation is an emergency, please call 911 immediately. . Non-Emergent Contact Non-Emergency issues call your: Primary Care Provider . Past History Medical & Surgical History: (1) Renal failure (2) Hypertension (3) Hemorrhage of surgically-created arteriovenous fistula . "Provider Documentation" section prepared by Jim Díaz. . VTE Core Measure Inpt VTE Proph given/why not?: SCD's
[2016-08-14] MEDS ORDERED: TRAVOPROST Z 0.004% OPH SOLN 2.5 ML BTL OP SCH (21:00)
--- NOTE | 2016-08-18 18:22 | DISCHARGE SUMMARY ---
Please see dictated H and P for full details. An 81-year-old with past medical history of hypertension, hyperlipidemia, atrial fibrillation, on Coumadin, diabetes, end-stage renal disease, coronary artery disease, acute on chronic congestive heart failure, who presented to Emergency Room after it had caused him bleeding from a fistula in his left upper extremity after he finished dialysis in the afternoon. Since the bleeding was unable to be controlled, he was sent to the Emergency Room where his INR was discovered to be supratherapeutic at 8.9. He was given vitamin K and Kcentra. The bleeding was controlled and he was brought in for observation. He had no further signs of bleeding. His INR was 1.1 on 08/14/2016 and he was clinically stable for discharge. He will follow up with hemodialysis tomorrow and the patient can restart his Coumadin therapy as an outpatient. He was seen in consultation by Dr. Dia who does not recommend any vascular surgical intervention presently secondary to the bleeding being resolved. Time spent in reviewing the chart, discussion with the patient on the day of discharge 31 minutes. ELIE
[2017-01-22] MEDS ORDERED: [UNRECOGNIZED DRUG - CODE] TOP (11:21)
[2017-01-22] MEDS ORDERED: [UNRECOGNIZED DRUG - SUPPLY] TOP (11:21)
[2017-01-22] MEDS ORDERED: LIDO1CRE16 TOP (11:21)
[2017-01-22] MEDS ORDERED: LEVO175T3 PO (11:21)
[2017-01-22] MEDS ORDERED: CALC500C3 PO (11:21)
[2017-01-22] MEDS ORDERED: NUTR-7 PO (11:21)
[2017-01-22] MEDS ORDERED: GUAI100S75 PO (11:24)
[2017-01-22] MEDS ORDERED: MENTOIN TOP (11:26)
[2017-02-05] MEDS ORDERED: CEPH500C2 PO (09:21)
[2017-03-27] MEDS ORDERED: AMX500 PO (11:20)
[2017-03-27] MEDS ORDERED: RCL25 PO (11:20)
[2017-03-27] MEDS ORDERED: VANC1INJ94 IV (11:20)
[2017-03-27] MEDS ORDERED: NUTR-31 PO (11:20)
[2017-03-27] MEDS ORDERED: OXYC-57 PO (11:20)
[2017-03-27] MEDS ORDERED: WARF1TAB PO (11:20)
== END 2016-08-14 20:33 ==
LOC: ENRESERVDT → ENRESERVTM → EDBD 17:41 → C.EDB 17:45 → C.MED 23:00
PROVIDERS: ADMIT Family Medicine; ATTEND Hospitalist
DX: T82.838A Hemorrhage due to vascular prosthetic devices, implants and grafts, initial encounter (principal); Y84.8 Other medical procedures as the cause of abnormal reaction of the patient, or of later complication, without mention of misadventure at the time of the procedure; N18.6 End stage renal disease; E11.22 Type 2 diabetes mellitus with diabetic chronic kidney disease; D64.9 Anemia, unspecified; Z99.2 Dependence on renal dialysis; I48.91 Unspecified atrial fibrillation; E03.9 Hypothyroidism, unspecified; Z98.890 Other specified postprocedural states; Z87.891 Personal history of nicotine dependence; Z79.01 Long term (current) use of anticoagulants

== ENCOUNTER 2016-09-28 07:31 | Day surgery (SDC) | payer BC ==
[~2016-09-28] VITALS: Ht 177.8 cm; Wt 77.5 kg
[~2016-09-28 07:31] MED LIST changes: -ASPI81TA28 PO; -ATOR-26 PO; -BRIM0.2S OPB; +TMPOPS15 OPB; -WARF2TAB PO
--- NOTE | 2016-09-28 07:47 | History and Physical ---
History & Physical Date of Service Sep 28, 2016. History & Physical Chief Complaint: End stage renal disease, functioning fistula History of Present Illness The patient is a 80 year old male with multiple medical problems, He had a wrist fistula done in the past which did not mature enough to be useable. This was revised. He now has a functioning fistula. He is here for permcath removall Allergies Coded Allergies: No Known Allergies (Unverified , 08/25/15) Surgical / Medical History Hx Cardiac Surgery: Yes (AICD) Hx Abdominal Surgery: No Hx Cancer Surgery: No Hx Thoracic Surgery: No Hx Orthopedic: Yes (Broken arm) Hx Urinary Tract Surgery: No HX Other Surgery: Yes (esophageal surgery, ) Past Medical/Surgical History: Kidney Disease Family History No significant family history Social History Smoking Status: Never Smoker Hx Tobacco Use In Past Year?: No Hx Alcohol Use - Type & Amnt: Yes (OCC BEER ) Hx Substance Use -Type & Amnt: No Review of Systems Constitutional: No chills, No fever, No malaise Skin: No change in color Eyes: No visual changes ENMT: No sore throat Respiratory:, No SOB or cough, No hemoptysis Cardiovascular: + edema, No chest pain, No intermittent claudication, No palpitations Gastrointestinal: No abdominal pain, No nausea, No vomiting Neurologic: No dizziness, No headache Physical Exam: Constitutional: General Apperance: well-nourished, well-developed, too thin Level of Distress: NAD, acutely ill, chronically ill Psychiatric: Mental Status: active & alert, normal mood, normal affect Orientation: oriented except where noted, to time, to place, to person Memory: recent memory abnormal, remote memory abnormal (vague, poor historian) Head: normocephalic, atraumatic Eyes: EOM: EOMI ENMT: normal ENT inspection, hearing grossly normal Neck: supple, trachea midline Lungs: Respiratory effort: dyspneic, tachypneic Auscultation: breath sounds normal, no expiratory wheezing, wet rales/ crackles Cardiovascular: Apical Impulse: not displaced Heart Auscultation: no murmurs, no rubs, no gallops, pertinent finding ( irregular) Peripheral Pulses: Pulses: full and equal, in all extremities except if noted Bruits: none appreciated Carotid Pulse: normal on the left, normal on the right Brachial Pulses: normal on the left, normal on the right Radial Pulse: normal on the left, normal on the right Ulnar Pulse: normal on the left, normal on the right Femoral Pulse: normal on the left, normal on the right Posterior Tibialis Pulse: decreased on the left, decreased on the right Dorsalis Pedis Pulse: decreased on the left, decreased on the right Abdomen: Bowel Sounds: normal Inspection & Palpation: soft, non-distended, no tenderness, guarding & rebound Musculoskeletal: normal strength (5/5 throughout), normal tone Extremities: Upper Right: no cyanosis, no edema, no varicosities Upper Left: no cyanosis, significant edema, no varicosities, good thrill Lower Right: no cyanosis, no varicosities, no palpable cord, edema, ulcers Lower Left: no cyanosis, no varicosities, no palpable cord, edema, ulcers Neurologic: Cranial Nerves: grossly intact Sensation: grossly intact ASSESSMENT and PLAN: End stage renal disease Functioning fistula Plan: Patient admitted for removal of his permcath. I have discussed the risks options and benefits of the procedure with the patient. The patient understands the risks options and benefits and agrees to the procedure.
[2016-09-28 08:20] VITALS: BP 135/55; PULSE 60; TEMP 36.8; O2SAT 92; Ht 177.8 cm; Wt 77.5 kg
[2016-09-28] MEDS ORDERED: WARF2TAB PO (08:21)
[2016-09-28] MEDS ORDERED: WARF1TAB PO (08:21)
[2016-09-28] MEDS ORDERED: ASPI81TA28 PO (08:27)
[2016-09-28] MEDS ORDERED: AMOX500C3 PO (08:28)
[2016-09-28] MEDS ORDERED: ATOR-26 PO (08:28)
[2016-09-28 08:38] LABS: INR 1.8 (0.9-1.1); PARTIAL THROMBOPLASTIN RATIO 1.4; PROTHROMBIN TIME (PATIENT) 20.2 SECONDS (9.0-12.0)
[2016-09-28] MEDS ORDERED: LIDOCAINE HCL 1% 20 ML VIAL SQ ONE (09:30)
--- NOTE | 2016-09-28 09:35 | [facility] Post Operative Brief Note ---
Immediate Operative Summary Operative Date Sep 28, 2016. Pre-Operative Diagnosis Functioning Fistula Post-Operative Diagnosis Same Procedure(s) Performed Removal of Perm Catheter Surgeon Dr. Dia Event Designer Surgeon(s) Dr. Catie Torres Estimated Blood Loss 2 Findings cuff and catheter removed Specimens Explant Perm catheter Anesthesia Local Complication(s) None Disposition Recovery Room / PACU
--- NOTE | 2016-09-28 09:38 | Discharge Instructions ---
Discharge Instructions Date of Service Sep 28, 2016. Visit Reason for Visit: End Stage Renal Disease, Functioning Fistula Discharge Discharge Diagnosis / Problem: Functioning fistula Discharge Goals Goal(s): Therapeutic intervention Activity Recommendations Activity Limitations: resume your previous activity Shower/Bathe: tomorrow Anesthesia . Post Anesthesia Instructions: If you have had General Anesthesia or IV Sedation: * Do not drive today. * Resume driving when surgeon permits. * Do not make important decisions or sign legal documents today. * Call surgeon for: 1. Temperature elevations greater than 101 degrees F. 2. Uncontrollable pain. 3. Excessive bleeding. 4. Persistent nausea and vomiting. 5. Medication intolerance (nausea, vomiting or rash). * For nausea and vomiting use only clear liquids such as: tea, soda, bouillon until nausea subsides, then gradually increase diet as tolerated. * If you have any concerns or questions, call your surgeon's office. If physician is unavailable and it is an emergency, call 911 or go to the nearest emergency room. . Instructions / Follow-Up Instructions / Follow-Up Call [phone] with any questions or concerns. Remove dressing tomorrow SPECIAL CARE INSTRUCTIONS: Medications: * Continue to take your medications as directed. If you have been given a prescription for Plavix, please fill it immediately and take as directed. Incision Care: * Your puncture site may have some bruising and minor swelling for about one week. * You will have a small dressing covering your puncture site. You may remove the dressing after 24 hours and shower. You may let the warm soapy water run over it, but be sure to dry the puncture site well and keep it dry. * DO NOT IMMERSE THE INCISION IN A TUB/POOL/etc. UNTIL HEALED. * Puncture sites should be kept covered with a band-aid until it begins to heal. Restrictions: * Depending on whether you leg or arm was punctured to access the arteries, you will be required to lay flat, hold your arm still, or both, for about 4 hours after the procedure to prevent bleeding. * Limit your activity for the first 48 hours. You may walk and go up and down steps. Avoid excessive bending or movement at the puncture site. Possible Complications: * Excessive Swelling - after blood flow is improved you may notice increased swelling in the lower legs. This is a normal response. This usually depends on the amount of blockages in the leg, how long they have been there prior to your procedure and how much blood flow was restored. Elevating your legs will help to improve this. Please notify our office ([phone] ) if the swelling does not go away after lying in bed overnight. * Infection/Drainage/Bleeding - Drainage or bleeding from the puncture site should be minimal. If you have excessive bleeding or drainage, call our office ([phone]) right away. * Pain - You may experience some mild pain or soreness at your puncture site. If your pain does not improve, please contact our office ([phone]). Call your doctor and seek emergent treatment if you develop: * Temperature above 101 degrees * Any fever or chills * Any redness or purulent drainage from the puncture site * Any new dusky/blue colored toes or feet with coolness or sharp or aching pain. SKIN IRRITATION: * You may experience some redness and/or swelling in the area where radiation was administered. If any skin irritation occurs, please contact your family physician. FOLLOW UP VISIT: Keep any scheduled doctor appointments. Diet Recommendations Recommended Home Diet: resume previous diet Procedures Procedures Performed: Removal of Perm Catheter Pending Studies Studies pending at discharge: no Medical Emergencies . Who to Call and When: Medical Emergencies: If at any time you feel your situation is an emergency, please call 911 immediately. . Non-Emergent Contact Non-Emergency issues call your: Surgeon . . "Provider Documentation" section prepared by Valeriy iDa. .
[2016-09-28 09:40] VITALS: BP 108/49; PULSE 92; TEMP 36.4; O2SAT 96
--- NOTE | 2016-09-28 09:59 | DIAGNOSTIC IMAGING REPORT ---
DATE OF PROCEDURE: 09/28/2016 PROCEDURE NOTE PREOPERATIVE DIAGNOSIS: Right IJ PermCath with functioning fistula. POSTOPERATIVE DIAGNOSIS: Right IJ PermCath with functioning fistula. PROCEDURE: Removal of right IJ PermCath SURGEON: Dr. Valeriy Dia. CONTENT STRATEGY LEAD: Dr. Catie Torres. ANESTHESIA: Local. ESTIMATED BLOOD LOSS: 2 mL CONDITION: Stable. COMPLICATIONS: None. INDICATIONS: Mr. Alphonse Morrow is an 81-year-old gentleman with history of end-stage renal disease on hemodialysis with a functioning fistula. He has had several PermCaths placed previously. Most recently, he underwent a right IJ PermCath exchange on 03/02/2016. His fistula is currently functioning and he no longer requires his PermCath. For this reason, he was recommended to undergo PermCath removal. Risks, benefits and alternatives were discussed with patient and he consented to the procedure. DESCRIPTION OF PROCEDURE: The patient was taken to the hybrid OR and placed in the supine position. His right neck and chest were prepped and draped in the usual sterile fashion. A safety timeout was performed and the patient and procedure were correctly identified. Two sutures holding the Perm catheter in place were removed. Seven mL of local anesthesia was injected surrounding the PermCath. Blunt dissection was used to identify the cuff. The fibrous sheath surrounding the cuff was incised using an 11 blade scalpel. The catheter was removed without difficulty and manual pressure was held for approximately 10 minutes. Abel was placed in the tunnel tract and hemostasis was Achieved. The skin incision was closed proximally with 2 interrupted Vicryl suture. A sterile dressing was applied. The patient tolerated the procedure well and there are no immediate complications. Dr. Valeriy Dia was present for the entire procedure. I, Dr. Dia was present and scrubed for the entire procedure. [facility]
[2016-09-28 10:10] VITALS: BP 106/49; TEMP 36.4; O2SAT 94
[2017-01-22] MEDS ORDERED: CALC500C3 PO (11:21)
[2017-01-22] MEDS ORDERED: LIDO1CRE16 TOP (11:21)
[2017-01-22] MEDS ORDERED: LEVO175T3 PO (11:21)
[2017-01-22] MEDS ORDERED: NUTR-7 PO (11:21)
[2017-01-22] MEDS ORDERED: [UNRECOGNIZED DRUG - CODE] TOP (11:21)
[2017-01-22] MEDS ORDERED: [UNRECOGNIZED DRUG - SUPPLY] TOP (11:21)
[2017-01-22] MEDS ORDERED: GUAI100S75 PO (11:24)
[2017-01-22] MEDS ORDERED: MENTOIN TOP (11:26)
[2017-02-05] MEDS ORDERED: CEPH500C2 PO (09:21)
[2017-03-27] MEDS ORDERED: WARF1TAB PO (11:20)
[2017-03-27] MEDS ORDERED: AMX500 PO (11:20)
[2017-03-27] MEDS ORDERED: NUTR-31 PO (11:20)
[2017-03-27] MEDS ORDERED: OXYC-57 PO (11:20)
[2017-03-27] MEDS ORDERED: RCL25 PO (11:20)
[2017-03-27] MEDS ORDERED: VANC1INJ94 IV (11:20)
== END 2016-09-28 10:20 | disposition home or self-care (01) ==
LOC: C.ACU 07:31
PROVIDERS: ATTEND Surgery Vascular Surgery
DX: N18.6 End stage renal disease (principal)

== ENCOUNTER 2017-01-25 07:48 | Observation (INO) | payer BC, OTHER ==
--- NOTE | 2017-01-22 11:36 | PAT Medication Instructions ---
Service Date Jan 22, 2017. Current Home Medication List Acetaminophen (Tylenol), 650 MG PO Q4H Allopurinol (Zyloprim), 0.5 TAB PO QAM Amoxicillin (Amoxil), 2,000 MG PO UD Aspirin (Aspirin Ec), 81 MG PO QAM Atorvastatin (Lipitor), 80 MG PO HS Calcium Carbonate (Tums), 1 TAB PO TID Carvedilol (Coreg), 1 TAB PO BID Guaifenesin (Siltussin Sa), 5 ML PO Q4H PRN for RN Levothyroxine Sodium (Levothyroxine Sodium), 1 TAB PO QAM Lidocaine-Prilocaine (Lidocaine/Prilocaine), 1 APPLN TOP UD Menthol-Zinc Oxide (Calmoseptine), 1 DOSE TOP BID Multivitamins/Minerals (Mvi With Minerals), 1 TAB PO QAM Nutritional Supplements (Boost), 1 DOSE PO QAM Ocuvite Preservision (Ocuvite Preservision), 1 TAB PO QAM Oxycodone/Acetaminophen 5MG/325MG (Percocet 5MG/325MG), 1-2 TABLET PO Q4H PRN for Pain Pantoprazole (Protonix), 40 MG PO QPM Silver-Carboxymethylcellulose (Aquacel Ag Extra 2" X 2"/), 1 DOSE TOP Q2D Timolol Maleate (Timolol 0.5% Oph Soln 15 Ml), 1 DROP OPB BID Travoprost (Travatan Z), 1 DROPS OP HS Warfarin Sodium (Coumadin), 1 TAB PO QPM [Cass/Optifoam], 1 DOSE TOP Q2D Medication Instructions For Your Scheduled Surgery - Check with surgeon (Dr. Dia) and prescribing physician for instructions: Warfarin Sodium (Coumadin), 1 TAB PO QPM Aspirin (Aspirin Ec), 81 MG PO QAM' - Continue as directed: Amoxicillin (Amoxil), 2,000 MG PO UD - Hold the following medications 24 hours prior to surgery: [Cass/Optifoam], 1 DOSE TOP Q2D Silver-Carboxymethylcellulose (Aquacel Ag Extra 2" X 2"/), 1 DOSE TOP Q2D Lidocaine-Prilocaine (Lidocaine/Prilocaine), 1 APPLN TOP UD Menthol-Zinc Oxide (Calmoseptine), 1 DOSE TOP BID - Hold the following medications the morning of surgery: Nutritional Supplements (Boost), 1 DOSE PO QAM Ocuvite Preservision (Ocuvite Preservision), 1 TAB PO QAM Multivitamins/Minerals (Mvi With Minerals), 1 TAB PO QAM Guaifenesin (Siltussin Sa), 5 ML PO Q4H PRN for RN Calcium Carbonate (Tums), 1 TAB PO TID - Take the following medications the morning of surgery with a sip of water: Timolol Maleate (Timolol 0.5% Oph Soln 15 Ml), 1 DROP OPB BID Oxycodone/Acetaminophen 5MG/325MG (Percocet 5MG/325MG), 1-2 TABLET PO Q4H PRN for Pain (okay to take up to 4 hours prior to surgery if needed) Levothyroxine Sodium (Levothyroxine Sodium), 1 TAB PO QAM Carvedilol (Coreg), 1 TAB PO BID Allopurinol (Zyloprim), 0.5 TAB PO QAM Acetaminophen (Tylenol), 650 MG PO Q4H (if needed) - Take the following medications as scheduled the night before surgery: Travoprost (Travatan Z), 1 DROPS OP HS Timolol Maleate (Timolol 0.5% Oph Soln 15 Ml), 1 DROP OPB BID Pantoprazole (Protonix), 40 MG PO QPM Oxycodone/Acetaminophen 5MG/325MG (Percocet 5MG/325MG), 1-2 TABLET PO Q4H PRN for Pain (if needed) Guaifenesin (Siltussin Sa), 5 ML PO Q4H PRN for RN (if needed) Carvedilol (Coreg), 1 TAB PO BID Atorvastatin (Lipitor), 80 MG PO HS Acetaminophen (Tylenol), 650 MG PO Q4H (if needed) If you have any questions please call us at [phone] or [phone] or [phone]
[2017-01-22 12:08] VITALS: BMI 22.0
[2017-01-25] VITALS (8 sets, daily range): BP systolic 118–143; BP diastolic 58–78; PULSE 56–77; TEMP 36.4–37; O2SAT 96–100; Ht 180.3 cm; Wt 74.1 kg
[~2017-01-25] VITALS: Ht 180.3 cm; Wt 74.1 kg
--- NOTE | 2017-01-25 07:38 | History and Physical ---
History & Physical Date of Service Jan 25, 2017. History & Physical Chief Complaint: Left arm swelling History of Present Illness The patient is a 81 year old male with multiple medical problems, including ESRD on HD, admitted for vein vein bypass. Pt had a failed L wrist AVF and later a LUE brachiocephalic AVF which is functioning well. 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 Attempted intervention, however, GUITAR MAKER HAND was unsuccessful. Denies FRANKLIN, fever, chills, chest pain, SOB, abd pain, N/V, rest pain, claudication, other complaints. Allergies No Known Allergies (Unverified , 08/25/15) Surgical / Medical History Hx Cardiac Surgery: Yes (AICD) Hx Abdominal Surgery: No Hx Cancer Surgery: No Hx Thoracic Surgery: No Hx Orthopedic: Yes (Broken arm) Hx Urinary Tract Surgery: No HX Other Surgery: Yes (esophageal surgery, AVF creation) Past Medical/Surgical History: Kidney Disease Family History No significant family history Social History Smoking Status: Never Smoker Hx Tobacco Use In Past Year?: No Hx Alcohol Use - Type & Amnt: Yes (OCC BEER ) Hx Substance Use -Type & Amnt: No Review of Systems Constitutional: No chills, No fever, No malaise Skin: No change in color Eyes: No visual changes ENMT: No sore throat Respiratory:, No SOB or cough, No hemoptysis Cardiovascular: + edema, No chest pain, No intermittent claudication, No palpitations Gastrointestinal: No abdominal pain, No nausea, No vomiting Neurologic: No dizziness, No headache Physical Exam: Constitutional: General Apperance: well-nourished, well-developed, too thin Level of Distress: NAD, acutely ill, chronically ill Psychiatric: Mental Status: active & alert, normal mood, normal affect Orientation: oriented except where noted, to time, to place, to person Memory: recent memory abnormal, remote memory abnormal (vague, poor historian) Head: normocephalic, atraumatic Eyes: EOM: EOMI ENMT: normal ENT inspection, hearing grossly normal Neck: supple, trachea midline Lungs: Respiratory effort: No dyspnea Auscultation: breath sounds normal, no expiratory wheezing, wet rales/ crackles Cardiovascular: Apical Impulse: not displaced Heart Auscultation: no murmurs, no rubs, no gallops, pertinent finding ( irregular) Peripheral Pulses: Pulses: full and equal, in all extremities except if noted Bruits: none appreciated Carotid Pulse: normal on the left, normal on the right Brachial Pulses: normal on the left, normal on the right Radial Pulse: normal on the left, normal on the right Ulnar Pulse: normal on the left, normal on the right Femoral Pulse: normal on the left, normal on the right Posterior Tibialis Pulse: decreased on the left, decreased on the right Dorsalis Pedis Pulse: decreased on the left, decreased on the right Abdomen: Bowel Sounds: normal Inspection & Palpation: soft, non-distended, no tenderness, guarding & rebound Musculoskeletal: normal strength (5/5 throughout), normal tone Extremities: Upper Right: no cyanosis, no edema, no varicosities Upper Left: no cyanosis, significant edema, no varicosities. + thrill/ bruit. Lower Right: no cyanosis, no varicosities, no palpable cord, edema, ulcers Lower Left: no cyanosis, no varicosities, no palpable cord, edema, ulcers Neurologic: Cranial Nerves: grossly intact Sensation: grossly intact ASSESSMENT and PLAN: Left arm swelling LUE AVF ESRD on HD Plan: Patient admitted for a left arm fistula to right subclavian vein bypass. I have discussed the risks options and benefits of the procedure with the patient. The patient understands the risks options and benefits and agrees to the procedure.
[~2017-01-25 07:48] MED LIST changes: +AMOX500C3 PO; +ASPI81TA28 PO; +ATOR-26 PO; +CEFAZOLIN 1000MG/55 ML D5W IV SCH; +GUAI100S75 PO; -LEVO150T9 PO; +LEVO175T3 PO; +LIDO1CRE16 TOP; +MENTOIN TOP; -NEPHRO PO; +NUTR-7 PO; +SODIUM CHLORIDE 0.9% 1000ML 1,000 ML IV SCH; +WARF1TAB PO; +[UNRECOGNIZED DRUG - CODE] TOP; +[UNRECOGNIZED DRUG - SUPPLY] TOP
[2017-01-25] MEDS ORDERED: BUPIVACAINE/EPINEPHRINE 0.5% MPF 1:200,000 30 ML VIAL ONE (08:17)
[2017-01-25] MEDS ORDERED: THROMBIN FOR SOLN 20000 UNIT KIT ONE (08:17)
[2017-01-25] MEDS ORDERED: LIDOCAINE HCL 1% 20 ML VIAL ONE (08:17)
[2017-01-25] MEDS ORDERED: HEPARIN SOD (PORCINE) 1000 UNIT/ML 10 ML VIAL ONE ×2 (08:17→12:52)
[2017-01-25] MEDS ORDERED: GELATIN SPONGE 12-7MM ONE (08:17)
[2017-01-25] MEDS ORDERED: ATROPINE SULFATE 0.1 MG/ML 5ML SYR IV PRN (08:30)
[2017-01-25] MEDS ORDERED: HYDROmorphone INJ 2 MG/ML SYR/VIAL IV PRN (08:30)
[2017-01-25] MEDS ORDERED: NALOXONE HCL 0.4 MG/1 ML VIAL/CARP IV PRN (08:30)
[2017-01-25] MEDS ORDERED: FENTANYL CITRATE INJ 50 MCG/1 ML 2 ML VIAL IV PRN (08:30)
[2017-01-25] MEDS ORDERED: FLUMAZENIL 0.1 MG/1 ML 10 ML VIAL IV PRN (08:30)
[2017-01-25] MEDS ORDERED: EpHEDrine SULFATE INJ 50 MG/ML AMP IV PRN (08:30)
[2017-01-25] MEDS ORDERED: MEPERIDINE HCL 25 MG/ML CARP IV PRN (08:30)
[2017-01-25] MEDS ORDERED: ONDANSETRON INJ 2 MG/ML 2 ML VIAL IV PRN ×2 (08:30→14:00)
[2017-01-25] MEDS ORDERED: PHENYLEPHRINE 100MCG/ML 5ML SYR IV PRN (08:30)
[2017-01-25] MEDS ORDERED: LABETALOL HCL IV 5 MG/ML 20ML IV PRN (08:30)
[2017-01-25 09:13] LABS: INR 1.1 (0.9-1.1); PARTIAL THROMBOPLASTIN RATIO 1.1; PROTHROMBIN TIME (PATIENT) 11.5 SECONDS (9.0-12.0)
[2017-01-25 09:37] LABS: BUN/CREATININE RATIO 5.7 (10-20); CALCIUM 9.2 mg/dl (8.5-10.1)
[2017-01-25] MEDS ORDERED: FENTANYL CITRATE INJ 50 MCG/1 ML 2 ML VIAL ONE (10:10)
[2017-01-25] MEDS ORDERED: KETAMINE HCL INJ 50 MG/ML 10 ML VIAL ONE (10:12)
[2017-01-25] MEDS ORDERED: PROPOFOL IV EMULSION 10 MG/ML 20 ML VIAL IV ONE (12:16)
[2017-01-25] MEDS ORDERED: DEXAMETHASONE SOD INJ 4 MG/ML VIAL ONE (12:16)
[2017-01-25] MEDS ORDERED: ONDANSETRON INJ 2 MG/ML 2 ML VIAL ONE (12:16)
[2017-01-25] MEDS ORDERED: GELATIN SPONGE SZ 100 ONE (12:59)
[2017-01-25] MEDS ORDERED: OXYCODONE/ACETAMINOPHEN 5-325 TAB PO PRN (14:00)
[2017-01-25] MEDS ORDERED: ACETAMINOPHEN 325 MG TAB PO PRN (14:00)
[2017-01-25] MEDS ORDERED: GUAIFENESIN SUGAR FREE 100 MG/5 ML UDC PO PRN (14:00)
[2017-01-25] MEDS ORDERED: [UNRECOGNIZED DRUG - MIXTURE] TOP SCH (14:00)
--- NOTE | 2017-01-25 14:00 | [facility] Post Operative Brief Note ---
Immediate Operative Summary Operative Date Jan 25, 2017. Pre-Operative Diagnosis Left subclavian vein occlusion Post-Operative Diagnosis Same Procedure(s) Performed Left arm av fistula to right subclvian vein bypass Surgeon Dr. Valeriy Dia Provider Network Mgr Surgeon(s) none Estimated Blood Loss 150 Findings good flow through graft Specimens none Anesthesia Gen Complication(s) None Disposition Recovery Room / PACU
[2017-01-25 14:29] LABS: BASO % 0.3 %; BASO ABS # 0.02 K/uL (0-0.2); COMPLETE YES; EOS % 3.3 %; HEMATOCRIT 33.3 % (42-52); IG% 0.5 %; LYMPH % 21.8 %; LYMPH ABS # 1.71 K/uL (1.2-3.4); MEAN CELL VOLUME 108.8 fL (80-100); MEAN CORPUSCULAR HEMOGLOBIN 36.3 pg (25-34); MEAN CORPUSCULAR HGB CONC 33.3 g/dl (32-36); MEAN PLATELET VOLUME 9.7 fL (7.4-10.4); MONO % 6.1 %; PLATELET COUNT 152 K/uL (130-400); RED BLOOD COUNT 3.06 M/uL (4.7-6.1); WHITE BLOOD COUNT 7.84 K/uL (4.8-10.8)
[2017-01-25] MEDS ORDERED: IV FLUIDS COMPLETED PRN (14:30)
--- NOTE | 2017-01-25 14:52 | Anesthesiology Progress Note ---
Anesthesia Post Op Note Date & Time Jan 25, 2017 at 14:51 Vital Signs Pain Intensity: 0 Vital Signs Past 12 Hours Date Time Temp Pulse Resp B/P (MAP) Pulse Ox O2 Delivery O2 Flow Rate FiO2 01/25/17 14:50 63 16 134/67 100 Oxymask 3 01/25/17 14:40 36.4 63 16 136/54 99 Oxymask 3 01/25/17 14:30 67 16 126/51 99 Oxymask 3 01/25/17 14:20 61 16 133/56 99 Oxymask 5 01/25/17 14:10 66 16 126/57 98 Oxymask 5 01/25/17 14:03 36.3 76 18 109/61 98 Oxymask 10 01/25/17 08:36 36.6 77 20 130/58 (82) 97 Room Air Notes Mental Status: alert / awake / arousable, participated in evaluation Pt Amnestic to Procedure: Yes Nausea / Vomiting: adequately controlled Pain: adequately controlled Airway Patency, RR, SpO2: stable & adequate BP & HR: stable & adequate Hydration State: stable & adequate Anesthetic Complications: no major complications apparent
[2017-01-25 15:31] LABS: BUN/CREATININE RATIO 5.5 (10-20); POTASSIUM 4.7 mmol/L (3.5-5.1)
[2017-01-25 15:32] LABS: CREATININE 5.1 mg/dl (0.60-1.40)
[2017-01-25] MEDS: HEPARIN SOD 5000 UNIT/0.5 ML CARP SQ SCH (18:05)
[2017-01-25] MEDS ORDERED: INFLUENZA ADMINISTRATION CHARGE ONE (18:15)
[2017-01-25] MEDS ORDERED: INFLUENZA VACCINE HIGH DOSE 65+ 0.5 ML SYR IM. ONE (18:15)
[2017-01-25] MEDS: CEFAZOLIN IV 1,000 MG in DEXTROSE 5% 50ML 50 ML IV SCH (19:36)
[2017-01-25] MEDS ORDERED: ATORVASTATIN 40 MG TAB PO SCH (21:00)
[2017-01-25] MEDS ORDERED: PANTOprazole SOD 40 MG TAB PO SCH (21:00)
[2017-01-25] MEDS ORDERED: WARFARIN SOD 1 MG TAB PO SCH (21:00)
[2017-01-25] MEDS ORDERED: TRAVOPROST Z 0.004% OPH SOLN 2.5 ML BTL OP SCH (21:00)
[2017-01-25] MEDS: CARVEDILOL 6.25 MG TAB PO SCH (21:37)
[2017-01-25] MEDS: TIMOLOL MALEATE 0.5% OP SOLN 5 ML BTL OPB SCH (21:37)
[2017-01-25] MEDS: MENTHOL-ZINC OXIDE 360 APPLN/120 GM TUBE EXT SCH (21:37)
[2017-01-25] MEDS: CALCIUM CARBONATE 500 MG CHEWABLE PO SCH (21:40)
--- NOTE | 2017-01-25 22:40 | OPERATIVE REPORT ---
DATE OF OPERATION: 01/25/2017 PREOPERATIVE DIAGNOSIS: Left subclavian vein occlusion. POSTOPERATIVE DIAGNOSIS: Same. PROCEDURE: 1. Left arm AV fistula. 2. Right subclavian vein bypass. SURGEON: Dr. Dia. ANESTHETIC: General LMA. PROCEDURE INDICATIONS: The patient is an 81-year-old gentleman with a left AV fistula with a left subclavian vein occlusion. His arm was significantly swollen and causing a lot of discomfort. On endovascular attempt and recannulating the subclavian vein where the pacemaker wires entered was unsuccessful. It recommended the bypass. The patient understood the risks, options and benefits and agreed to have this procedure. DESCRIPTION OF PROCEDURE: The patient was taken to the operating room and placed in supine position. After the chest was prepped and draped in a sterile manner, a transverse incision was made below the clavicle on the right side. This was carried down to where the subclavian vein was identified. It was of a good caliber. It was isolated for a short segment. Next, a vertical incision was made over the AV fistula just beyond the shoulder joint ON the chest wall. This was carried down to where the cephalic vein was seen. It was of good caliber and had a good fistulous sound present with THE Doppler. At that point the patient was heparinized. A counterincision was made in the midline between the 2 incisions and a 6 mm ____ ring [place]i graft was then passed through the tunneler from the 2 incisions using the counterincision to aid in the passing. Next, the patient was heparinized. The right subclavian vein was clamped proximally and distally. Longitudinal venotomy was then made. The ring graft was then beveled and end-to-side anastomosis was accomplished using the CV6 [place]-Kei suture in the usual vascular fashion. A clamp was placed on the distal end of the graft. All clamps were removed from the vein. Adequate hemostasis was noted. Clamp was removed from the graft and back bleeding was seen. The graft was then flushed with heparinized saline and clamped just beyond the venous anastomosis. At that point, the cephalic vein was then clamped proximally and distally. Longitudinal venotomy was then made. The graft was then beveled in appropriate fashion and end-to-side anastomosis was accomplished using a running CV6 [place]-Kei suture in the usual vascular fashion. Prior to completing the closure, backbleeding and forward bleeding was allowed to occur and the final few sutures were placed and securely tied. Clamps were then removed. Good flow was seen. There was a good audible bruit to Doppler in the right subclavian vein. There was bleeding seen from ____ which was corrected with an interrupted 6-0 Prolene suture. At that point, adequate hemostasis was noted. All 3 wounds were then closed with a running 3-0 Vicryl suture for the subcutaneous layer and iman for the skin. Sterile dressings were applied. A 4 inch Addison was placed on the hand. The patient left the operating room in satisfactory condition and tolerated the procedure well. I attest to the content of the Intraoperative Record and any orders documented therein. Any exception s are noted below.
[2017-01-26] VITALS (24 sets, daily range): BP systolic 111–149; BP diastolic 42–76; PULSE 51–67; TEMP 36.4–37.1; O2SAT 96–97
[2017-01-26] MEDS: HEPARIN SOD 5000 UNIT/0.5 ML CARP SQ SCH (01:36)
[2017-01-26] MEDS: CEFAZOLIN IV 1,000 MG in DEXTROSE 5% 50ML 50 ML IV SCH (04:08)
[2017-01-26] MEDS ORDERED: LEVOTHYROXINE 175 MCG TAB PO SCH (06:00)
[2017-01-26 06:51] LABS: BASO % 0.2 %; BASO ABS # 0.02 K/uL (0-0.2); COMPLETE YES; EOS % 0.1 %; HEMATOCRIT 30.3 % (42-52); IG% 0.3 %; LYMPH % 22.4 %; LYMPH ABS # 2.25 K/uL (1.2-3.4); MEAN CELL VOLUME 108.2 fL (80-100); MEAN CORPUSCULAR HEMOGLOBIN 36.1 pg (25-34); MEAN CORPUSCULAR HGB CONC 33.3 g/dl (32-36); MONO % 9.5 %; NEUT % 67.5 %; PLATELET COUNT 177 K/uL (130-400); WHITE BLOOD COUNT 10.06 K/uL (4.8-10.8)
[2017-01-26 06:57] LABS: INR 1.1 (0.9-1.1); PROTHROMBIN TIME (PATIENT) 11.9 SECONDS (9.0-12.0)
[2017-01-26 07:40] LABS: BUN/CREATININE RATIO 6.5 (10-20); CREATININE 6.3 mg/dl (0.60-1.40); POTASSIUM 5.6 mmol/L (3.5-5.1)
[2017-01-26] MEDS ORDERED: ASPIRIN 81 MG ECTAB PO SCH (09:00)
[2017-01-26] MEDS ORDERED: CEROVITE ADV FORMULA TAB PO SCH ×2 (09:00)
[2017-01-26] MEDS ORDERED: BOOST VANILLA PO SCH ×2 (09:00)
[2017-01-26] MEDS ORDERED: ALLOPURINOL 300 MG TAB PO SCH (09:00)
--- NOTE | 2017-01-26 09:19 | Progress Note ---
Progress Note Date of Service: Jan 26, 2017. Subjective 81 yo m with multiple medical problems, POD #1 after LUE AVF to R subclavian V BPG, seen in f/u today. Pt admits edema of LUE, states no worse than prior to surgery. Pt denies pain or other concerns. Problem List Medical Problems: (1) Cellulitis of knee, right Status: Acute (2) Chronic kidney disease Status: Acute (3) Closed fracture of right proximal humerus Status: Acute (4) Dehydration Status: Acute (5) Dysphagia Status: Acute (6) Dysphasia Status: Acute (7) Elevated troponin Status: Acute (8) Fall Status: Acute (9) GI bleed Status: Acute (10) Hemorrhage of arteriovenous fistula Status: Acute (11) Hypotension Status: Acute (12) Right leg pain Status: Acute (13) Supratherapeutic INR Status: Acute (14) Supratherapeutic INR Status: Acute Objective Vital Signs Vital Signs Past 12 Hours Date Time Temp Pulse Resp B/P (MAP) Pulse Ox O2 Delivery O2 Flow Rate FiO2 01/26/17 07:49 Room Air 01/26/17 07:45 Room Air 01/26/17 07:30 36.6 59 16 114/48 (70) 97 Room Air 01/26/17 04:06 37.1 60 16 111/68 (82) 96 Room Air 01/26/17 00:11 Room Air 01/25/17 22:52 37.0 60 16 126/77 (93) 96 Room Air 01/25/17 21:30 60 118/61 (80) Exam CONST: A&O x2, NAD, chronically ill appearing male CHEST: Irregular, lungs ctab. Surgical incisions C/D/I with iman. + minimal local ecchymosis and tenderness. No erythema or significant edema noted. ABD: soft, nontender, + bs x 4 quad EXT: LUE with +4 edema, improved distally where ROSANNE wrap located. AVF with + thrill/bruit. Laboratory and Microbiology Results Past 24 Hours Test 01/25/17 14:16 01/25/17 14:33 01/26/17 06:17 01/26/17 09:11 Range/Units White Blood Count 7.84 10.06 4.8-10.8 K/uL Red Blood Count 3.06 2.80 4.7-6.1 M/uL Hemoglobin 11.1 10.1 14.0-18.0 g/dL Hematocrit 33.3 30.3 42-52 % Mean Corpuscular Volume 108.8 108.2 80-100 fL Mean Corpuscular Hemoglobin 36.3 36.1 25-34 pg Mean Corpuscular Hemoglobin Concent 33.3 33.3 32-36 g/dl Platelet Count 152 177 130-400 K/uL Mean Platelet Volume 9.7 10.0 7.4-10.4 fL Neutrophils (%) (Auto) 68.0 67.5 % Lymphocytes (%) (Auto) 21.8 22.4 % Monocytes (%) (Auto) 6.1 9.5 % Eosinophils (%) (Auto) 3.3 0.1 % Basophils (%) (Auto) 0.3 0.2 % Neutrophils # (Auto) 5.33 6.79 1.4-6.5 K/uL Lymphocytes # (Auto) 1.71 2.25 1.2-3.4 K/uL Monocytes # (Auto) 0.48 0.96 0.11-0.59 K/uL Eosinophils # (Auto) 0.26 0.01 0-0.5 K/uL Basophils # (Auto) 0.02 0.02 0-0.2 K/uL RDW Standard Deviation 63.6 62.1 36.4-46.3 fL RDW Coefficient of Variation 16.0 15.9 11.5-14.5 % Immature Granulocyte % (Auto) 0.5 0.3 % Immature Granulocyte # (Auto) 0.04 0.03 0.00-0.02 K/uL Sodium Level 138 136 136-145 mmol/L Potassium Level 4.7 5.6 3.5-5.1 mmol/L Chloride Level 98 97 98-107 mmol/L Carbon Dioxide Level 27 28 21-32 mmol/L Anion Gap 13.0 11.0 3-11 mmol/L Blood Urea Nitrogen 28 40 7-18 mg/dl Creatinine 5.10 6.30 0.60-1.40 mg/dl Est Creatinine Clear Calc Drug Dose 11.5 9.3 ml/min Estimated GFR () 11.2 8.7 Estimated GFR (Non- 9.7 7.5 BUN/Creatinine Ratio 5.5 6.5 10-20 Random Glucose 134 160 70-99 mg/dl Calcium Level 9.0 9.0 8.5-10.1 mg/dl Bedside Glucose 124 70-99 mg/dl Prothrombin Time 11.9 9.0-12.0 SECONDS Prothromb Time International Ratio 1.1 0.9-1.1 ASSESSMENT and PLAN: s/p LUE AVF to R subclavian v BPG ESRD on HD Pt doing well post op. Hyperkalemia noted on AM labs. Remaining labs and VS stable. OK for d/c home today after nephrology eval/dialysis.
--- NOTE | 2017-01-26 09:37 | Discharge Instructions ---
Discharge Instructions Date of Service Jan 26, 2017. Admission Reason for Admission: Occlusion Of Left Subclavian Vein Discharge Discharge Diagnosis / Problem: post left to right upper ext. vein bypass, occluded L subclavian vein Discharge Goals Goal(s): Therapeutic intervention Activity Recommendations Activity Limitations: per Instructions/Follow-up section . Instructions / Follow-Up Instructions / Follow-Up May shower and dry surgical area gently. ROSANNE wrap L hand to elbow Follow up with Dr Dia or Galilea Hernandez PA-C in 2 weeks for reeval and staple removal. Current Hospital Diet Patient's current hospital diet: Renal Diet Discharge Diet Recommended Diet: Renal Diet Procedures Procedures Performed: Left Arm Arteriovenous Fistula to Right Subclavian Vein Bypass Pending Studies Studies pending at discharge: no Medical Emergencies . Who to Call and When: Medical Emergencies: If at any time you feel your situation is an emergency, please call 911 immediately. . Non-Emergent Contact Non-Emergency issues call your: Primary Care Provider . "Provider Documentation" section prepared by Galilea Hernandez. . VTE Core Measure Inpt VTE Proph given/why not?: Unfractionated heparin SQ
[2017-01-26 10:03] LABS: HEPATITIS B AB NEG
[2017-01-26] MEDS ORDERED: SODIUM CHLORIDE 0.9% 1000ML 1,000 ML IV PRN (10:19)
[2017-01-26] MEDS ORDERED: HEPARIN SOD (PORCINE) 1000 UNIT/ML 10 ML VIAL IV SCH ×2 (10:30)
[2017-01-26] MEDS ORDERED: CALCITRIOL 0.25 MCG CAP PO ONE (10:45)
[2017-01-26] MEDS: CALCIUM CARBONATE 500 MG CHEWABLE PO SCH ×2 (12:33→14:00)
[2017-01-26] MEDS: MENTHOL-ZINC OXIDE 360 APPLN/120 GM TUBE EXT SCH (12:34)
[2017-01-26] MEDS: CARVEDILOL 6.25 MG TAB PO SCH (12:34)
--- NOTE | 2017-01-26 12:55 | NEPHROLOGY CONSULTATION ---
DATE OF CONSULTATION: 01/26/2017 DATE OF CONSULTATION: 01/26/2017 PROBLEM LIST: 1. Insulin-dependent diabetes mellitus. 2. Hypertension. 3. Atherosclerotic cardiovascular disease. 4. End-stage renal disease. 5. Coronary artery disease. 6. Atrial fibrillation. 7. Congestive heart failure. 8. Implantable cardioverter defibrillator. 9. Chronic venous disease, lower extremities. SUBJECTIVE: Mr. Morrow is an 81-year-old white male well known to me. I have cared for him for a number of years for multiple medical issues noted above. Over the years, Mr. Morrow's blood pressure has been reasonably well controlled. His diabetes has likewise been reasonably well controlled and managed with oral hypoglycemics at least until recently, atrial fibrillation, was associated with a controlled ventricular response and he had no complications with anticoagulation on warfarin. His renal function had remained stable for many years with serum creatinines between 2.5 and 3.0. In 2009, he began to develop increasing problems and complications. Apparently as a result of symptoms of palpitations and increasing shortness of breath. He underwent a repeat cardiac evaluation. He was found to have obvious ischemic heart disease. Holter monitor demonstrated significant pauses as well as episodes of nonsustained ventricular tachycardia. A 2-dimensional echocardiogram demonstrated left ventricular ejection fraction of about 30% with global hypokinesis and mild to moderate mitral regurgitation. He underwent adenosine Cardiolite stress test that demonstrated an inferior and lateral defect consistent with his previous myocardial infarction. Although cardiac catheterization was considered given his poor ventricular function he refused. He also had significant renal insufficiency. He underwent the placement of a dual chamber ICD because of his ischemic cardiomyopathy. An atrial lead was placed in the event that he wanted to be cardioverted to a sinus rhythm at a later date. Mr. Morrow refused that cardioversion. Subsequent to that time, he did reasonably well. However, through 2013 and 2014 he had increasing symptoms of congestive heart failure. His serum creatinine had risen to about 3.5 but remained stable at that point. He had been on a regimen at home where he was able to follow daily weights and adjust his dose of loop diuretics based on increasing amounts of edema and increased weight or problems with shortness of breath. He was doing well on that regimen. However, in August of 2015 he again noted increasing problems with shortness of breath. He had been compliant with his medical regimen. He was admitted to the hospital at that time with shortness of breath and increasing edema. A chest x-ray showed evidence of congestive heart failure. Despite increasing doses of diuretics he continued to be short of breath and his serum creatinine continued to rise. At that point, it was elected to start Mr. Morrow on maintenance dialysis. He has been dialyzed initially 2 times a week and more recently 3 times a week on Tuesdays, and Saturdays. He has done remarkably well until he had problems with recent falls and a fracture of his right humerus. Since that time, he has been far more limited in his ability to get about and he has been living in an assisted living facility. His vascular access for dialysis has been an AV fistula initially created in his right forearm. However, ultimately he needed a left upper arm AV fistula. That fistula had been functioning reasonably well. However, for the past year he has had increasing problems with that fistula related to left-sided subclavian vein stenosis. Recently, he developed increasing swelling of his left arm. He had a fistulogram done yesterday and did require surgery done by Dr. Dia to relieve subclavian vein stenoses. The surgery was apparently uncomplicated, although he has had some significant swelling of his left arm. Currently, he has no symptoms of uremia and no symptoms of volume overload. Today discharge order was written by surgery for him to be able to go home. However, given the swelling of his left arm it was felt by me that he should remain here for his hemodialysis treatment today to make sure that there are no difficulties with his vascular access and dialysis treatments. CURRENT MEDICATIONS: On dialysis include heparin 2000 units at the initiation of his dialysis treatment and 500 units each hour. He receives Venofer 100 mg weekly and Mircera 50 mcg IV push every 2 weeks. He also receives calcitriol 0.5 mg orally during dialysis treatments. His home medications include allopurinol 300 mg daily, aspirin 81 mg daily, atorvastatin 80 mg at bedtime, timolol 0.5% one drop each eye twice daily, calcium acetate 667 mg 1 with each meal, Colace 100 mg twice daily, carvedilol 6.25 mg twice daily, Coumadin in doses to maintain his INR between 2 and 3. He takes Percocet 5/325 q. 4 hours p.r.n., levothyroxine 175 mcg daily, multivitamin daily, Ocuvite 1 daily, pantoprazole 40 mg daily and Travoprost 0.004% one drop at bedtime in each eye. ALLERGIES: No known medication allergies. PAST MEDICAL HISTORY: Outlined above. He has had no other significant problems not covered here other than chronic venous stasis dermatitis involving his lower extremities which have been complicated with venous ulcers, which have been treated and resolved in the past. OBJECTIVE: GENERAL: On physical exam when seen by me, Mr. Morrow appeared obviously chronically ill but in no distress. VITAL SIGNS: He is afebrile (36.6), his blood pressure 114/48 in the left arm. His pulse is 59 and regular (? paced), his respiratory rate is 16. His pulse ox 96-97% on room air. SKIN: Shows normal skin turgor. He has stapled incisions beneath each clavicle. His right upper arm is markedly dilated with a few areas of blistering noted. There is no drainage from those blisters. He has changes of chronic venous stasis dermatitis on his lower extremities with no chinyere ulcerations. There is an AV fistula in his right wrist with a good pulse near the anastomosis but no thrill or bruit going up the arm. He has a left upper arm AV fistula with a good pulse, thrill and bruit, although his left upper arm is markedly swollen as noted. LYMPHATICS: Show no palpable lymphadenopathy. HEAD: Normal. EYES: Grossly normal. The ocular fundi were not examined. EARS, NOSE, MOUTH AND THROAT: Unremarkable. Oral mucous membranes are moist. Dentition is in fair to poor repair. NECK: Supple. He has no obvious jugular venous distension or carotid bruit. There is no thyromegaly. CHEST: Clear to auscultation. He has no wheezes, rales or rhonchi. CARDIAC: Shows a current regular rhythm with a systolic murmur at the base radiating toward the neck. ABDOMEN: Nontender. There is no organomegaly or mass. EXTREMITIES: His lower extremities show no edema. He has chronic bronze dermatitis of both lower extremities. There is a small healing ulceration on the left heel. His left upper arm is grossly swollen. His left lower arm is wrapped. He has a good pulse, thrill and bruit over his graft. His bruit is transmitted into the left upper chest. NEUROLOGIC: Shows no focal abnormalities. He is pleasant, cooperative and oriented. PERTINENT LABORATORY WORK: From today shows a white count of 10,060 with a normal differential. His hemoglobin is 10.1, hematocrit 30.3. Red cell indices are macrocytic. His platelet count 177,000. His prothrombin time today is 11.9, INR of 1.1. His clinical chemistries show sodium 136 mmol/L, potassium 5.6 mmol/L, chloride of 97 mmol/L, and CO2 content of 28. His BUN is 40, creatinine 6.30. A random blood sugar this morning was 160, his serum calcium 9.0. His hepatitis B surface antigen and hepatitis B surface antibodies are both negative. Hepatitis B core antibody is pending. ASSESSMENT: Mr. Morrow was admitted for fistula revision surgery which he underwent yesterday. He has been told that he could go home today by surgery and I would agree. However, he should receive his dialysis here before discharge. The reasoning is that if there is difficulty accessing his fistula given the degree of swelling of his left arm much of which appears to be postsurgical, then he may need the placement of a temporary hemodialysis catheter. He will continue his usual medications. Assuming his dialysis is uncomplicated, he can be discharged immediately thereafter. I have written an order for him to receive his calcitriol 0.5 mcg today. Thank you for allowing me to participate in his inpatient care.
[2017-01-26] MEDS: TIMOLOL MALEATE 0.5% OP SOLN 5 ML BTL OPB SCH (15:14)
[2017-01-26] MEDS ORDERED: BOOST BREEZE NUTRITION DRINK 1 BOX PO SCH (17:45)
--- NOTE | 2017-01-30 01:18 | DISCHARGE SUMMARY ---
ADMISSION DIAGNOSES: 1. Left arm swelling. 2. Left upper extremity AV fistula. 3. End-stage renal disease, on hemodialysis. DISCHARGE DIAGNOSES: 1. Status post left arm AV fistula to right subclavian vein bypass graft. 2. Left arm swelling. 3. Left upper extremity AV fistula. 4. End-stage renal disease, on hemodialysis. DISCHARGE CONDITION: Stable. CONSULTATIONS IN THE HOSPITAL: Included nephrology for hemodialysis. PROCEDURES IN THE HOSPITAL: Included a left arm AV fistula to right subclavian vein bypass graft, which was performed by Dr. Dia on 01/25/2017 without any significant complications. He had an EBL of 150 mL HISTORY OF PRESENT ILLNESS: Mr. Morrow is an 81-year-old male with multiple medical problems, one of them including end-stage renal disease, on hemodialysis, who is known to Dr. Dia for AV access for hemodialysis and has had chronic edema of his left upper extremity since his left brachiocephalic AV fistula creation. 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 He was then recommended to consider undergoing a [id number] bypass to decompress the left arm and the procedure, risks, benefits and alternatives were discussed with him and his family. The patient expressed understanding and agreement to proceed. HOSPITAL COURSE: The patient was admitted 01/25/2017 after undergoing his left arm AV fistula to his right subclavian vein bypass graft. This was performed without significant complications. He did have an approximate EBL of 150 mL. His labs and vital signs remained essentially stable. He did undergo hemodialysis on day #1, postop, prior to being discharged due to an elevated potassium of 5.6. Otherwise, his blood counts were within acceptable limits and his vital signs remained stable. He had no significant complaints and minimal discomfort. PHYSICAL EXAMINATION: VITAL SIGNS: On the day of discharge, his vital signs were as follows: A temperature of 36.8, pulse of 67, respiratory rate of 16, blood pressure of 111/37, pulse oximetry of 96% on room air. CONSTITUTIONAL: General: The patient is a chronically ill appearing elderly male, in no acute distress. He is frail appearing. He is alert and oriented x2. HEAD: His head is normocephalic and atraumatic. His eyes are EOMI. ENT: Demonstrates no hearing loss, rhinorrhea or pharyngeal erythema. NECK: Supple, nontender with a midline trachea without masses or crepitus. LUNGS: Decreased, but clear bilaterally. HEART: Irregular. ABDOMEN: Soft and nontender with normoactive bowel sounds in all 4 quadrants. His chest wall surgical incisions demonstrate mild local tenderness, edema and ecchymosis. There does not appear to be any large hematoma noted. EXTREMITIES: He has a good thrill through his left arm AV fistula. His left arm remains edematous, +4. However, he does have an Addison wrap on the distal portion of his arm and hand to assist in decompression. His right arm demonstrates no edema. His lower extremities demonstrate trace-to-1+ chronic edema. He has no sense of distal ischemia. He has brisk capillary refill. DIET UPON DISCHARGE: Should be a renal diet. MEDICATIONS UPON DISCHARGE: Are reconciled in the chart and are as per his discharge instructions. FOLLOWUP: Should be with Dr. Dia within 2 weeks for reevaluation and removal of his iman. He should call the office with any other questions or concerns.
== END 2017-01-26 16:20 ==
LOC: C.ACU 07:48 → C.MSN 08:35 → ENRESERV 15:25
PROVIDERS: ADMIT Surgery Vascular Surgery; ATTEND Surgery Vascular Surgery
DX: T82.898A Other specified complication of vascular prosthetic devices, implants and grafts, initial encounter (principal); X58.XXXA Exposure to other specified factors, initial encounter; N18.6 End stage renal disease; Z99.2 Dependence on renal dialysis

== ENCOUNTER 2017-03-18 06:52 | Emergency (ER) | payer BC ==
[~2017-03-18] VITALS: Ht 180.3 cm; Wt 84.0 kg
[~2017-03-18 06:52] MED LIST changes: -CEFAZOLIN 1000MG/55 ML D5W IV SCH; -SODIUM CHLORIDE 0.9% 1000ML 1,000 ML IV SCH
[2017-03-18 07:06] VITALS: TEMP 36.5; Ht 180.3 cm; Wt 84.0 kg
--- NOTE | 2017-03-18 07:30 | DIAGNOSTIC IMAGING REPORT ---
R SHOULDER MIN 2 VIEWS ROUTINE CLINICAL HISTORY: Right shoulder pain COMPARISON: 05/03/2016 DISCUSSION: There is a chronic mildly displaced impaction fracture of the proximal humerus. No acute fractures are visualized. There is no dislocation. Degenerative changes are present within the AC joint. There is mild interstitial thickening within the right lung. IMPRESSION: Old mildly displaced impaction fracture the proximal humerus. No dislocation. Electronically signed by: Chris Guthrie M.D. 03/18/2017 7:29 AM Dictated Date/Time: 03/18/2017 7:28 AM
--- NOTE | 2017-03-18 07:32 | DIAGNOSTIC IMAGING REPORT ---
CHEST ONE VIEW PORTABLE CLINICAL HISTORY: Right shoulder pain COMPARISON STUDY: 08/13/2016 FINDINGS: The heart is enlarged. There is a left subclavian dual-chamber pacer/defibrillator present. The right internal jugular central venous catheter has been removed. There is elevation interstitium consistent with congestive failure and mild interstitial edema.[ A bilateral interstitial inflammatory process could appear similar but is statistically less likely. IMPRESSION: Mild interstitial pulmonary edema pattern. Electronically signed by: Chris Guthrie M.D. 03/18/2017 7:30 AM Dictated Date/Time: 03/18/2017 7:29 AM
[2017-03-18] MEDS ORDERED: NUTR-31 PO (07:51)
[2017-03-18 07:52] LABS: BASO % 0.1 %; BASO ABS # 0.02 K/uL (0-0.2); HEMATOCRIT 37.9 % (42-52); IG% 0.3 %; LYMPH % 13.5 %; LYMPH ABS # 1.91 K/uL (1.2-3.4); MEAN CELL VOLUME 114.5 fL (80-100); MEAN CORPUSCULAR HEMOGLOBIN 38.4 pg (25-34); MEAN CORPUSCULAR HGB CONC 33.5 g/dl (32-36); MEAN PLATELET VOLUME 10.8 fL (7.4-10.4); MONO % 9.4 %; NEUT % 76.7 %; PLATELET COUNT 149 K/uL (130-400); RED BLOOD COUNT 3.31 M/uL (4.7-6.1); WHITE BLOOD COUNT 14.13 K/uL (4.8-10.8)
[2017-03-18 07:58] LABS: INR 1.3 (0.9-1.1); PROTHROMBIN TIME (PATIENT) 13.8 SECONDS (9.0-12.0)
--- NOTE | 2017-03-18 08:05 | DIAGNOSTIC IMAGING REPORT ---
CT HEAD WITHOUT CONTRAST (CT) CLINICAL HISTORY: Acute change in mental status. Patient found on floor. COMPARISON STUDY: 05/14/2016 TECHNIQUE: Axial CT of the brain is performed from the vertex to the skull base. IV contrast was not administered for this examination. A dose lowering technique was utilized adhering to the principles of ALARA. CT DOSE: 537.48 mGy.cm FINDINGS: No intra or extra-axial mass lesions are visualized. There is no CT evidence of acute cortical infarction. There is no evidence of midline shift. There is no acute hemorrhage. No calvarial fractures are visualized. There are patchy white matter hypodensities likely on a small vessel basis. 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 There are cerebellar lacunar infarcts. There is no evidence of pathologic ventricular dilatation. There is no evidence of acute sinusitis. There are carotid and vertebrobasilar arterial calcifications. IMPRESSION: No acute intracranial findings Electronically signed by: Chris Guthrie M.D. 03/18/2017 8:04 AM Dictated Date/Time: 03/18/2017 8:02 AM
[2017-03-18 08:06] VITALS: O2SAT 97
[2017-03-18 08:29] LABS: BUN/CREATININE RATIO 5.8 (10-20); CALCIUM 8.9 mg/dl (8.5-10.1); CKMB/CK RATIO 4.7 (0-3.0); CREATININE 4.78 mg/dl (0.60-1.40); POTASSIUM 5.4 mmol/L (3.5-5.1); THYROID STIMULATING HORMONE 2.55 uIu/ml (0.300-4.500)
[2017-03-18 09:00] LABS: COMPLETE YES
[2017-03-18 09:57] VITALS: BP 139/60; PULSE 66; O2SAT 96
--- NOTE | 2017-03-18 13:07 | EMERGENCY ROOM VISIT NOTE ---
History Report prepared by Prema: Ani Tolliver Under the Supervision of: Dr. Baldev Maynard M.D. First contact with patient: 06:53 Stated Complaint: FALL History of Present Illness The patient is an 82 year old male who presents to the Emergency Room with complaints of an episode of a fall occurring this morning. Per EMS, the nursing staff found the patient on the floor. They report that he fell out of his recliner when trying to reach for the phone. EMS states that the patient complains of lower back pain and right arm pain. The patient states that he gets dialysis Wednesday, , and Saturdays. The patient states that his arm feels fine and that it is normal that he cannot lift it himself. The patient notes later that his shoulder is in pain and that he is unsure if the pain is new or old. He denies hitting his head and back pain. Per records, the patient is on Coumadin. The patient's states that he seems more confused than normal and denies him having Dementia or Alzheimer. She notes that he fractured his right shoulder in May. Source of History: patient, spouse/significant other, EMS, other (records) Onset: this morning Position: other (global) Quality: other (global) Timing: other (episode) Associated Symptoms: No back pain Note: The patient complains of right shoulder pain. Review of Systems See HPI for pertinent positives & negatives. A total of 10 systems reviewed and were otherwise negative. Past Medical & Surgical Medical Problems: (1) access (2) Acute on chronic systolic (congestive) heart failure (3) Acute renal failure (4) Acute renal failure superimposed on stage 4 chronic kidney disease (5) Altered mental status (6) Atrial fibrillation (7) Bleeding (8) Cardiorenal syndrome with renal failure (9) Congestive heart failure (10) Constipation (11) Diabetes (12) Dysphagia (13) End stage renal disease (14) Fracture of right hip (15) Hemorrhage of surgically-created arteriovenous fistula (16) Hemorrhage of surgically-created arteriovenous fistula (17) Hypothyroid (18) Ischemic cardiomyopathy (19) Leukocytosis (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 Surgical Problems: (1) H/O excision of Zenker's diverticulum (2) Post-operative state (3) Post-operative state Family History No significant family history Social History Smoking Status: Former Smoker Drug Use: none Marital Status: Housing Status: assisted living Occupation Status: retired Current/Historical Medications Scheduled Acetaminophen (Tylenol), 650 MG PO Q4H Allopurinol (Zyloprim), 0.5 TAB PO QAM Amoxicillin (Amoxil), 2,000 MG PO UD Aspirin (Aspirin Ec), 81 MG PO QAM Atorvastatin (Lipitor), 80 MG PO HS Calcium Carbonate (Tums), 1 TAB PO TID Carvedilol (Coreg), 1 TAB PO BID Levothyroxine Sodium (Levothyroxine Sodium), 1 TAB PO QAM Multivitamins/Minerals (Mvi With Minerals), 1 TAB PO QAM Nutritional Supplements (Boost High Protein), 1 CAN PO QAM Ocuvite Preservision (Ocuvite Preservision), 1 TAB PO QAM Pantoprazole (Protonix), 40 MG PO QPM Timolol Maleate (Timolol 0.5% Oph Soln 15 Ml), 1 DROP OPB BID Warfarin Sodium (Coumadin), 1 TAB PO QPM Scheduled PRN Guaifenesin (Siltussin Sa), 5 ML PO Q4H PRN for RN Oxycodone/Acetaminophen 5MG/325MG (Percocet 5MG/325MG), 1-2 TABLET PO Q4H PRN for Pain Allergies Coded Allergies: No Known Allergies (Unverified , 03/18/17) Physical Exam Vital Signs Date Time Temp Pulse Resp B/P (MAP) Pulse Ox O2 Delivery O2 Flow Rate FiO2 03/18/17 09:57 66 18 139/60 96 Room Air 03/18/17 08:10 62 03/18/17 08:06 97 Room Air 03/18/17 08:06 60 18 125/67 97 Room Air 03/18/17 07:06 36.5 67 18 141/81 96 Room Air Physical Exam GENERAL: Patient is a healthy-appearing well-nourished HEAD: Normocephalic atraumatic EYES: Ocular movements intact pupils equal and react to light OROPHARYNX mucous membranes are moist no exudates present no erythema or edema present NECK: Supple no nuchal rigidity CHEST: Good equal expansion LUNGS: Clear and equal to auscultation CARDIAC: Normal S1 and S2 ABDOMEN: Soft nontender no guarding BACK: No CVA tenderness EXTREMITIES: Complains of right shoulder pain. Has good ROM of right shoulder, right elbow, and right wrist. No clubbing cyanosis or edema NEURO: Patient is following commands and answering questions appropriately. Alert and oriented x3 Cranial Nerves 2-12 grossly intact Medical Decision & Procedures ER Provider Diagnostic Interpretation: Radiology results as stated below per my review and radiologist interpretation: R SHOULDER MIN 2 VIEWS ROUTINE CLINICAL HISTORY: Right shoulder pain COMPARISON: 05/03/2016 DISCUSSION: There is a chronic mildly displaced impaction fracture of the proximal humerus. No acute fractures are visualized. There is no dislocation. Degenerative changes are present within the AC joint. There is mild interstitial thickening within the right lung. IMPRESSION: Old mildly displaced impaction fracture the proximal humerus. No dislocation. Electronically signed by: Chris Guthrie M.D. 03/18/2017 7:29 AM Dictated Date/Time: 03/18/2017 7:28 AM CHEST ONE VIEW PORTABLE CLINICAL HISTORY: Right shoulder pain COMPARISON STUDY: 08/13/2016 FINDINGS: The heart is enlarged. There is a left subclavian dual-chamber pacer/defibrillator present. The right internal jugular central venous catheter has been removed. There is elevation interstitium consistent with congestive failure and mild interstitial edema.[ A bilateral interstitial inflammatory process could appear similar but is statistically less likely. IMPRESSION: Mild interstitial pulmonary edema pattern. Electronically signed by: Chris Guthrie M.D. 03/18/2017 7:30 AM Dictated Date/Time: 03/18/2017 7:[address] HEAD WITHOUT CONTRAST (CT) CLINICAL HISTORY: Acute change in mental status. Patient found on floor. COMPARISON STUDY: 05/14/2016 TECHNIQUE: Axial CT of the brain is performed from the vertex to the skull base. IV contrast was not administered for this examination. A dose lowering technique was utilized adhering to the principles of ALARA. CT DOSE: 537.48 mGy.cm FINDINGS: No intra or extra-axial mass lesions are visualized. There is no CT evidence of acute cortical infarction. There is no evidence of midline shift. There is no acute hemorrhage. No calvarial fractures are visualized. There are patchy white matter hypodensities likely on a small vessel basis. 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 There are cerebellar lacunar infarcts. There is no evidence of pathologic ventricular dilatation. There is no evidence of acute sinusitis. There are carotid and vertebrobasilar arterial calcifications. IMPRESSION: No acute intracranial findings Electronically signed by: Chris Guthrie M.D. 03/18/2017 8:04 AM Dictated Date/Time: 03/18/2017 8:02 AM Laboratory Results 03/18/17 07:35 Red Blood Count 3.31, Mean Corpuscular Volume 114.5, Mean Corpuscular Hemoglobin 38.4, Mean Corpuscular Hemoglobin Concent 33.5, Mean Platelet Volume 10.8, Neutrophils (%) (Auto) 76.7, Lymphocytes (%) (Auto) 13.5, Monocytes (%) ( Auto) 9.4, Eosinophils (%) (Auto) 0.0, Basophils (%) (Auto) 0.1, Neutrophils # ( Auto) 10.83, Lymphocytes # (Auto) 1.91, Monocytes # (Auto) 1.33, Eosinophils # ( Auto) 0.00, Basophils # (Auto) 0.02 03/18/17 07:35 Test 03/18/17 07:10 03/18/17 07:35 Bedside Glucose 201 mg/dl (70-99) White Blood Count 14.13 K/uL (4.8-10.8) Red Blood Count 3.31 M/uL (4.7-6.1) Hemoglobin 12.7 g/dL (14.0-18.0) Hematocrit 37.9 % (42-52) Mean Corpuscular Volume 114.5 fL (80-100) Mean Corpuscular Hemoglobin 38.4 pg (25-34) Mean Corpuscular Hemoglobin Concent 33.5 g/dl (32-36) Platelet Count 149 K/uL (130-400) Mean Platelet Volume 10.8 fL (7.4-10.4) Neutrophils (%) (Auto) 76.7 % Lymphocytes (%) (Auto) 13.5 % Monocytes (%) (Auto) 9.4 % Eosinophils (%) (Auto) 0.0 % Basophils (%) (Auto) 0.1 % Neutrophils # (Auto) 10.83 K/uL (1.4-6.5) Lymphocytes # (Auto) 1.91 K/uL (1.2-3.4) Monocytes # (Auto) 1.33 K/uL (0.11-0.59) Eosinophils # (Auto) 0.00 K/uL (0-0.5) Basophils # (Auto) 0.02 K/uL (0-0.2) RDW Standard Deviation 63.1 fL (36.4-46.3) RDW Coefficient of Variation 15.1 % (11.5-14.5) Immature Granulocyte % (Auto) 0.3 % Immature Granulocyte # (Auto) 0.04 K/uL (0.00-0.02) Macrocytosis PRESENT Prothrombin Time 13.8 SECONDS (9.0-12.0) Prothromb Time International Ratio 1.3 (0.9-1.1) Anion Gap 6.0 mmol/L (3-11) Est Creatinine Clear Calc Drug Dose 12.2 ml/min Estimated GFR () 12.0 Estimated GFR (Non- 10.4 BUN/Creatinine Ratio 5.8 (10-20) Calcium Level 8.9 mg/dl (8.5-10.1) Total Bilirubin 0.6 mg/dl (0.2-1) Direct Bilirubin 0.2 mg/dl (0-0.2) Aspartate Amino Transf (AST/SGOT) 24 U/L (15-37) Alanine Aminotransferase (ALT/SGPT) 17 U/L (12-78) Alkaline Phosphatase 109 U/L (45-117) Total Creatine Kinase 91 U/L (39-308) Creatine Kinase MB 4.3 ng/ml (0.5-3.6) Creatine Kinase MB Ratio 4.7 (0-3.0) Troponin I 1.880 ng/ml (0-0.045) Total Protein 8.5 gm/dl (6.4-8.2) Albumin 2.9 gm/dl (3.4-5.0) Thyroid Stimulating Hormone (TSH) 2.550 uIu/ml (0.300-4.500) Labs reviewed by ED physician. ECG Indication: other (fall) Rate (beats per minute): 65 Rhythm: atrial fibrillation (with occasional paced rhythm) Findings: prolonged QT, other (old inferior infarct, old anterior infarct) ED Course 0653: Past medical records reviewed. The patient was evaluated in room A10. A complete history and physical examination was performed. 0841: Upon reexamination the patient is resting comfortably. I discussed results and treatment plan with the patient. He verbalizes agreement and understanding. The patient is ready for discharge. Medical Decision Etiologies such as fracture, dislocation, intra-abdominal, pneumothorax, intrathoracic , intracranial, neurologic, as well as other traumatic pathologies were entertained. This is an 82-year-old male who presents emergency department complaining of right shoulder pain [facility] The patient was found on the floor by nursing staff. Upon arrival to the emergency department the patient is complaining of right shoulder pain. Both the patient as well as his are unsure of when the shoulder pain started however in reviewing the chart it appears that the patient broke his humerus back in April of this year and that a he has a chronic break since then. He was sent for repeat x- rays. Laboratory work was obtained as well as EKG. The patient's Coumadin level is only 1.3. I will note that the patient's BUN/creatinine and troponin are all elevated and I feel that this is due to the patient's need for dialysis. The patient is going to receive dialysis on Wednesday. He denies any chest pain or shortness of breath therefore I feel he is well enough to be discharged home. Patient was in agreement with the treatment plan. Medication Reconcilliation Current Medication List: was personally reviewed by me Blood Pressure Screening Patient's blood pressure: Elevated blood pressure Blood pressure disposition: Referred to PCP Impression Primary Impression: Fall Additional Impression: Shoulder pain, right Scribe Attestation The scribe's documentation has been prepared under my direction and personally reviewed by me in its entirety. I confirm that the note above accurately reflects all work, treatment, procedures, and medical decision making performed by me. Departure Information Dispostion Home / Self-Care Referrals Vivek Ramirez M.D. (PCP) Forms HOME CARE DOCUMENTATION FORM, IMPORTANT VISIT INFORMATION Additional Instructions Follow up with Dialysis clinic Return if severe pain or fevers develop INR is 1.3, increase coumadin dose tonight You were found to have an elevated blood pressure today (>120 sytolic or >90 diastolic). Per medicare guidelines, you need to follow up with this blood pressure screening with your Primary Care Physician (PCP). For a new PCP call [phone]. You have been examined and treated today on an emergency basis only. This is not a substitute for, or an effort to provide, complete comprehensive medical care. It is impossible to recognize and treat all injuries or illnesses in a single emergency department visit. It is therefore important that you follow up closely with Dr Ramirez. Call as soon as possible for an appointment. Thank you for your time and consideration. I look forward to speaking with you again soon. Please don't hesitate to call us if you have any questions. Problem Qualifiers Primary Impression: Fall Encounter type: initial encounter Qualified Codes: W19.XXXA - Unspecified fall, initial encounter Additional Impression: Shoulder pain, right Chronicity: chronic Qualified Codes: M25.511 - Pain in right shoulder; G89.29 - Other chronic pain
[2017-03-19] MEDS ORDERED: TRAV0.00 OPB (12:57)
== END 2017-03-18 10:05 | disposition home or self-care (01) ==
LOC: EDBD 06:52 → C.EDA 06:54
DX: M25.511 Pain in right shoulder (principal); M54.5 Low back pain; W07.XXXA Fall from chair, initial encounter; E11.22 Type 2 diabetes mellitus with diabetic chronic kidney disease; I50.22 Chronic systolic (congestive) heart failure; N18.6 End stage renal disease; I48.91 Unspecified atrial fibrillation; E03.9 Hypothyroidism, unspecified; I25.5 Ischemic cardiomyopathy; Z99.2 Dependence on renal dialysis; Z79.82 Long term (current) use of aspirin; Z79.01 Long term (current) use of anticoagulants; Z87.891 Personal history of nicotine dependence

== ENCOUNTER 2017-03-19 09:57 | Inpatient (IN) | payer BC, OTHER ==
[2017-03-19] VITALS (59 sets, daily range): BP systolic 114–156; BP diastolic 54–126; PULSE 61–102; TEMP 36.5–39.4; O2SAT 90–100; Ht 180.3 cm; Wt 79.7 kg
[~2017-03-19] VITALS: Ht 180.3 cm; Wt 79.7 kg
[~2017-03-19 09:57] MED LIST changes: -LIDO1CRE16 TOP; -MENTOIN TOP; +NUTR-31 PO; -NUTR-7 PO; -TRAV0.00 OP; -[UNRECOGNIZED DRUG - CODE] TOP; -[UNRECOGNIZED DRUG - SUPPLY] TOP
--- NOTE | 2017-03-19 10:44 | EMERGENCY ROOM VISIT NOTE ---
History Report prepared by Prema: Luis Alberto Lai Under the Supervision of: Dr. Ernesto Cardenas M.D. First contact with patient: 10:07 Chief Complaint: ALTERED MENTAL STATUS Stated Complaint: ALTERED MENTAL STATUS History of Present Illness The patient is a 82 year old white male with a past medical history of CHF, DM, end stage renal disease who presents to the ED by EMS with a cc of constant altered mental status beginning today. Resident at [facility]. He is on dialysis, and has treatments , , . He had his treatments on and W this week due to the holiday yesterday (). Reported to have fallen at [facility] today. Seen in the ED yesterday. HPI limited secondary to AMS. Source of History: patient History Limited By: AMS Onset: Today Quality: other (altered mental status) Timing: constant Review of Systems ROS limited secondary to altered mental status. Past Medical & Surgical Medical Problems: (1) access (2) Acute on chronic systolic (congestive) heart failure (3) Acute renal failure (4) Acute renal failure superimposed on stage 4 chronic kidney disease (5) Altered mental status (6) Atrial fibrillation (7) Bleeding (8) Cardiorenal syndrome with renal failure (9) Congestive heart failure (10) Constipation (11) Diabetes (12) Dysphagia (13) End stage renal disease (14) Fracture of right hip (15) Hemorrhage of surgically-created arteriovenous fistula (16) Hemorrhage of surgically-created arteriovenous fistula (17) Hypothyroid (18) Ischemic cardiomyopathy (19) Leukocytosis (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 Surgical Problems: (1) H/O excision of Zenker's diverticulum (2) Post-operative state (3) Post-operative state Family History No significant family history Social History Smoking Status: Former Smoker Drug Use: none Marital Status: Housing Status: assisted living Occupation Status: retired Current/Historical Medications Scheduled Acetaminophen (Tylenol), 650 MG PO Q4H Allopurinol (Zyloprim), 0.5 TAB PO QAM Amoxicillin (Amoxil), 2,000 MG PO UD Aspirin (Aspirin Ec), 81 MG PO QAM Atorvastatin (Lipitor), 80 MG PO HS Calcium Carbonate (Tums), 1 TAB PO TID Carvedilol (Coreg), 1 TAB PO BID Levothyroxine Sodium (Levothyroxine Sodium), 1 TAB PO QAM Multivitamins/Minerals (Mvi With Minerals), 1 TAB PO QAM Nutritional Supplements (Boost High Protein), 1 CAN PO QAM Ocuvite Preservision (Ocuvite Preservision), 1 TAB PO QAM Pantoprazole (Protonix), 40 MG PO QPM Timolol Maleate (Timolol 0.5% Oph Soln 15 Ml), 1 DROP OPB BID Travoprost (Travatan Z), 1 DROPS OPB HS Warfarin Sodium (Coumadin), 1 TAB PO QPM Scheduled PRN Guaifenesin (Siltussin Sa), 5 ML PO Q4H PRN for RN Oxycodone/Acetaminophen 5MG/325MG (Percocet 5MG/325MG), 1-2 TABLET PO Q4H PRN for Pain Allergies Coded Allergies: No Known Allergies (Unverified , 03/18/17) Physical Exam Vital Signs Date Time Temp Pulse Resp B/P (MAP) Pulse Ox O2 Delivery O2 Flow Rate FiO2 03/19/17 10:49 Nasal Cannula 2.0 03/19/17 10:17 98 Nasal Cannula 2.0 03/19/17 10:16 36.6 63 16 153/72 89 Room Air Physical Exam GENERAL: Awake, well-appearing, NAD. Alert, oriented to person, place and birthday but not year. HENT: Normocephalic, atraumatic. Poor dentition. Nasal canula in place. EYES: Normal conjunctiva. Sclera non-icteric. NECK: Supple. No nuchal rigidity. FROM. RESPIRATORY: CTAB, no rhonchi, wheezing, crackles CARDIAC: RRR, no MRG ABDOMEN: Soft, NTND, BS+ MSK: No chest wall TTP, no LE edema. LUE AVF with palpable thrill. Chronic vascular insufficiency changes of the bilateral LE. Feet are warm to the touch. NEURO: GCS 15, CN 2-12 intact, moves all 4s on command. Neuro intact. SKIN: No rash or jaundice noted. Medical Decision & Procedures ER Provider Diagnostic Interpretation: Radiology results as stated below per my review and radiologist interpretation: CT SCAN OF THE BRAIN WITHOUT IV CONTRAST FINDINGS: Brain parenchyma: There are age-related involutional changes noting moderate subcortical and periventricular microangiopathic change. There is no hemorrhage, mass effect, or evidence of acute territorial ischemia by CT criteria. A small focus of right frontal encephalomalacia is unchanged and consistent with a remote infarct. 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 Wallis-white matter is preserved. No extra-axial fluid collection is seen. Ventricles, sulci, cisterns: Prominent secondary to involutional change. Intracranial vasculature: There is atherosclerotic calcification of the cavernous carotid and vertebral arteries. Calvarium: Unremarkable. Sinuses and mastoids: The visualized paranasal sinuses are clear. The mastoid air cells are well pneumatized. Orbits: The bony orbits are grossly intact. IMPRESSION: Senescent changes as above with no hemorrhage, mass effect, or evidence of acute territorial ischemia by CT criteria. Electronically signed by: Sree Zaragoza M.D. 03/19/2017 11:06 AM CHEST ONE VIEW PORTABLE FINDINGS: No change in the prior exam. Findings of interstitial pulmonary edema. Mild prominence of pulmonary vasculature. Permanent bipolar cardiac pacemaker/defibrillator in good position. IMPRESSION: Interstitial pulmonary edema and/or congestive failure. No significant change from the prior study. The above report was generated using voice recognition software. It may contain grammatical, syntax or spelling errors. Electronically signed by: Carlyle Lieberman M.D. 03/19/2017 10:59 AM Laboratory Results 03/19/17 10:30 Red Blood Count 3.52, Mean Corpuscular Volume 113.9, Mean Corpuscular Hemoglobin 37.5, Mean Corpuscular Hemoglobin Concent 32.9, Mean Platelet Volume 11.3, Neutrophils (%) (Auto) 81.8, Lymphocytes (%) (Auto) 10.7, Monocytes (%) ( Auto) 7.1, Eosinophils (%) (Auto) 0.0, Basophils (%) (Auto) 0.1, Neutrophils # ( Auto) 12.28, Lymphocytes # (Auto) 1.61, Monocytes # (Auto) 1.07, Eosinophils # ( Auto) 0.00, Basophils # (Auto) 0.01 03/19/17 10:30 Test 03/19/17 10:30 03/19/17 12:50 White Blood Count 15.02 K/uL (4.8-10.8) Red Blood Count 3.52 M/uL (4.7-6.1) Hemoglobin 13.2 g/dL (14.0-18.0) Hematocrit 40.1 % (42-52) Mean Corpuscular Volume 113.9 fL (80-100) Mean Corpuscular Hemoglobin 37.5 pg (25-34) Mean Corpuscular Hemoglobin Concent 32.9 g/dl (32-36) Platelet Count 152 K/uL (130-400) Mean Platelet Volume 11.3 fL (7.4-10.4) Neutrophils (%) (Auto) 81.8 % Lymphocytes (%) (Auto) 10.7 % Monocytes (%) (Auto) 7.1 % Eosinophils (%) (Auto) 0.0 % Basophils (%) (Auto) 0.1 % Neutrophils # (Auto) 12.28 K/uL (1.4-6.5) Lymphocytes # (Auto) 1.61 K/uL (1.2-3.4) Monocytes # (Auto) 1.07 K/uL (0.11-0.59) Eosinophils # (Auto) 0.00 K/uL (0-0.5) Basophils # (Auto) 0.01 K/uL (0-0.2) RDW Standard Deviation 62.5 fL (36.4-46.3) RDW Coefficient of Variation 15.3 % (11.5-14.5) Immature Granulocyte % (Auto) 0.3 % Immature Granulocyte # (Auto) 0.05 K/uL (0.00-0.02) Macrocytosis PRESENT Ovalocytes 1+ Prothrombin Time 14.7 SECONDS (9.0-12.0) Prothromb Time International Ratio 1.4 (0.9-1.1) Activated Partial Thromboplast Time 31.0 SECONDS (21.0-31.0) Partial Thromboplastin Ratio 1.2 Anion Gap 7.0 mmol/L (3-11) Est Creatinine Clear Calc Drug Dose 8.7 ml/min Estimated GFR () 8.0 Estimated GFR (Non- 6.9 BUN/Creatinine Ratio 7.2 (10-20) Calcium Level 9.5 mg/dl (8.5-10.1) Magnesium Level 2.2 mg/dl (1.8-2.4) Total Bilirubin 0.7 mg/dl (0.2-1) Direct Bilirubin 0.2 mg/dl (0-0.2) Aspartate Amino Transf (AST/SGOT) 38 U/L (15-37) Alanine Aminotransferase (ALT/SGPT) 19 U/L (12-78) Alkaline Phosphatase 113 U/L (45-117) Ammonia 26.2 umol/L (11-32) Troponin I 2.110 ng/ml (0-0.045) Pro-B-Type Natriuretic Peptide > 35188 pg/ml (0-1800) Total Protein 8.7 gm/dl (6.4-8.2) Albumin 3.0 gm/dl (3.4-5.0) Lipase 59 U/L (73-393) Thyroid Stimulating Hormone (TSH) 2.410 uIu/ml (0.300-4.500) Laboratory results reviewed by me Medications Administered Medications (Trade) Dose Ordered Sig/Summer Route Start Time Stop Time Status Last Admin Dose Admin Albuterol Sulfate (Ventolin 0.083% 2.5MG/3ML Neb) 15 mg NOW STAT INH 03/19/17 11:48 03/19/17 11:50 DC 03/19/17 11:48 15 MG Calcium Gluconate (Calcium Gluconate 10%) 2,000 mg NOW STAT IV 03/19/17 11:48 03/19/17 11:50 DC 03/19/17 13:45 2,000 MG Insulin Human Regular (novoLIN-R U-100 PER UNIT) 5 units NOW STAT SC 03/19/17 11:48 03/19/17 11:50 DC 03/19/17 13:44 5 UNITS Dextrose (Dextrose 50% 50ML Syringe) 50 ml NOW ONCE IV 03/19/17 12:00 03/19/17 12:01 DC 03/19/17 13:35 50 ML Dextrose (Dextrose 50% 50ML Syringe) 50 ml NOW ONCE IV 03/19/17 12:00 03/19/17 12:01 DC 03/19/17 13:45 50 ML Furosemide (Lasix Inj) 80 mg NOW STAT IV 03/19/17 11:48 03/19/17 11:50 DC 03/19/17 13:32 80 MG ECG Indication: altered mental status Rate (beats per minute): 68 Rhythm: atrial fibrillation (vs 2-to-1 second degree type heart block) Findings: LBBB, T-wave inversion (Lateral), other (Wide QRS) Comparison ECG Date: August 13, 2016 Change: Wide QRS is new. ED Course 1013: The patient was evaluated in room B3B. A complete history and physical exam was performed. 1210: Upon reexamination, the patient was resting comfortably. I discussed the test results and treatment plan with him. The patient will be evaluated for further management. Medical Decision The patient is a 82 year old white male with a past medical history of CHF, DM, end stage renal disease who presents to the ED by EMS with a cc of constant altered mental status beginning today. Differential diagnosis includes etiologies such as metabolic, infection, hypoglycemia, electrolyte abnormalities , cardiac sources, intracerebral event, toxicologic, neurologic, as well as others were entertained. Patient was seen and evaluated at the bedside. Patient reportedly was seen here recently. Patient did have a proximal humerus impaction fracture but no other issues. Patient did have elevated troponin but this was believed to be secondary to his ESRD. On exam the patient is alert and oriented. Patient is able to tell his name date of with the exception of the ear as well as current place. Patient's states that he last received dialysis on Wednesday and that he was switched to Wednesday and Wednesday given the recent holiday. Patient otherwise denies any vomiting or abdominal pain. Patient's exam does not show any focal concerns for infection and patient has clear chest sounds as well as a soft abdomen. Patient does still urinate. Patient did have blood work that was completed which showed a mildly elevated white count of 15. Patient was notable to have a potassium of 6.4. Patient's creatinine was elevated. Patient did have a positive troponin. Given the patient's high potassium the patient was treated medically. Nephrology was consult is recommended likely inpatient dialysis. I did speak with the post closing specialist as well as the hospitalist as well agreed to take the patient. We did discuss the positive troponin in light of the patient's ESRD and volume overload given the very elevated BNP and interstitial edema on chest x-ray this was a more likely source an acute ACS. Admitting team's were in agreement with this plan. Patient was admitted to the ICU. Medication Reconcilliation Current Medication List: was personally reviewed by me Blood Pressure Screening Patient's blood pressure: Elevated blood pressure Blood pressure disposition: Elevated BP felt to be situational Consults Time Called: 1154 Consulting Physician: Dr. Galo -Nephrology Returned Call: [phone] Discussed the patient's case. Dr. Galo will consult on the patient, and feels that the patient will likely receive inpatient dialysis. Additional Consults: Time Called: 1154 Consulted Physician: Dr. Lauren JIN Returned Call: [phone] Additional Comments: Discussed the patient's case. The patient will be evaluated for further treatment and disposition. Impression Primary Impression: Altered mental status Additional Impressions: ESRD (end stage renal disease) Hyperkalemia Troponin level elevated Volume overload Critical Care I have personally spent greater than 45 minutes of critical care time in the direct management of this patient. This includes bedside care, interpretation of diagnostic studies, and testing, discussion with consultants, patient, and family members, and other required patient management activities. This 45 minutes is in excess of all separately billable procedures. Scribe Attestation The scribe's documentation has been prepared under my direction and personally reviewed by me in its entirety. I confirm that the note above accurately reflects all work, treatment, procedures, and medical decision making performed by me. Departure Information Dispostion Being Evaluated By Hospitalist Referrals Vivek Ramirez M.D. (PCP) Patient Instructions My [facility] Problem Qualifiers Primary Impression: Altered mental status Altered mental status type: unspecified Qualified Codes: R41.82 - Altered mental status, unspecified Additional Impressions: Volume overload Hypervolemia type: other Qualified Codes: E87.79 - Other fluid overload
--- NOTE | 2017-03-19 11:00 | DIAGNOSTIC IMAGING REPORT ---
CHEST ONE VIEW PORTABLE CLINICAL HISTORY: EVALUATE WEAKNESS dyspnea COMPARISON STUDY: 03/18/2017 FINDINGS: No change in the prior exam. Findings of interstitial pulmonary edema. Mild prominence of pulmonary vasculature. Permanent bipolar cardiac pacemaker/defibrillator in good position. IMPRESSION: Interstitial pulmonary edema and/or congestive failure. No significant change from the prior study. The above report was generated using voice recognition software. It may contain grammatical, syntax or spelling errors. Electronically signed by: Carlyle Lieberman M.D. 03/19/2017 10:59 AM Dictated Date/Time: 03/19/2017 10:58 AM
[2017-03-19 11:03] LABS: BASO % 0.1 %; BASO ABS # 0.01 K/uL (0-0.2); HEMATOCRIT 40.1 % (42-52); IG% 0.3 %; LYMPH % 10.7 %; LYMPH ABS # 1.61 K/uL (1.2-3.4); MEAN CELL VOLUME 113.9 fL (80-100); MEAN CORPUSCULAR HEMOGLOBIN 37.5 pg (25-34); MEAN CORPUSCULAR HGB CONC 32.9 g/dl (32-36); MEAN PLATELET VOLUME 11.3 fL (7.4-10.4); MONO % 7.1 %; NEUT % 81.8 %; PLATELET COUNT 152 K/uL (130-400); RED BLOOD COUNT 3.52 M/uL (4.7-6.1); WHITE BLOOD COUNT 15.02 K/uL (4.8-10.8)
--- NOTE | 2017-03-19 11:07 | DIAGNOSTIC IMAGING REPORT ---
CT SCAN OF THE BRAIN WITHOUT IV CONTRAST CLINICAL HISTORY: Weakness. COMPARISON STUDY: CT of the brain dated 03/18/2017. TECHNIQUE: Unenhanced axial CT scan of the brain is performed from the vertex to the skull base. CT DOSE: 537.48 mGy.cm FINDINGS: Brain parenchyma: There are age-related involutional changes noting moderate subcortical and periventricular microangiopathic change. There is no hemorrhage, mass effect, or evidence of acute territorial ischemia by CT criteria. A small focus of right frontal encephalomalacia is unchanged and consistent with a remote infarct. 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 Wallis-white matter is preserved. No extra-axial fluid collection is seen. Ventricles, sulci, cisterns: Prominent secondary to involutional change. Intracranial vasculature: There is atherosclerotic calcification of the cavernous carotid and vertebral arteries. Calvarium: Unremarkable. Sinuses and mastoids: The visualized paranasal sinuses are clear. The mastoid air cells are well pneumatized. Orbits: The bony orbits are grossly intact. IMPRESSION: Senescent changes as above with no hemorrhage, mass effect, or evidence of acute territorial ischemia by CT criteria. Electronically signed by: Sree Zaragoza M.D. 03/19/2017 11:06 AM Dictated Date/Time: 03/19/2017 11:03 AM
[2017-03-19 11:12] LABS: INR 1.4 (0.9-1.1); PARTIAL THROMBOPLASTIN RATIO 1.2; PROTHROMBIN TIME (PATIENT) 14.7 SECONDS (9.0-12.0)
[2017-03-19 11:42] LABS: ALKALINE PHOSPHATASE 113 U/L (45-117); ALT/SGPT 19 U/L (12-78); AST/SGOT 38 U/L (15-37); BUN/CREATININE RATIO 7.2 (10-20); CALCIUM 9.5 mg/dl (8.5-10.1); CARBON DIOXIDE 31 mmol/L (21-32); CHLORIDE 97 mmol/L (98-107); CREATININE 6.71 mg/dl (0.60-1.40); GLUCOSE 239 mg/dl (70-99); MAGNESIUM 2.2 mg/dl (1.8-2.4); POTASSIUM 6.4 mmol/L (3.5-5.1); SODIUM 135 mmol/L (136-145)
[2017-03-19 11:43] LABS: BLOOD UREA NITROGEN 48 mg/dl (7-18)
[2017-03-19] MEDS ORDERED: FUROSEMIDE 40 MG/4 ML VIAL IV STA (11:48)
[2017-03-19] MEDS ORDERED: ALBUTEROL 0.083% NEBU SOLN 3 ML VIAL INH STA (11:48)
[2017-03-19] MEDS ORDERED: CALCIUM GLUCONATE 10% 10 ML VIAL IV STA (11:48)
[2017-03-19] MEDS ORDERED: NovoLIN-R INSULIN PER UNIT CHARGE SC STA (11:48)
[2017-03-19] MEDS ORDERED: DEXTROSE 50% 50 ML SYR IV ONE ×2 (12:00)
[2017-03-19 12:04] LABS: COMPLETE YES; OVALOCYTES 1+
[2017-03-19] MEDS ORDERED: TRAV0.00 OPB (12:57)
[2017-03-19] MEDS ORDERED: GLUCAGON FOR INJ 1 MG VIAL SQ PRN (13:00)
[2017-03-19] MEDS ORDERED: DEXTROSE 50% 50 ML SYR IV PRN (13:00)
[2017-03-19] MEDS ORDERED: ALUMINUM/MAGNESIUM/SIMETH (MAALOX MAX) 30 ML UDC PO PRN (13:00)
[2017-03-19] MEDS ORDERED: MAGNESIUM HYDROXIDE SUSP 30 ML UDC PO PRN (13:00)
[2017-03-19] MEDS ORDERED: GLUCOSE 40% GEL 15 GM TUBE PO PRN (13:00)
[2017-03-19] MEDS ORDERED: GLUCOSE 10 TABS/TUBE PO PRN (13:00)
[2017-03-19] MEDS ORDERED: ONDANSETRON INJ 2 MG/ML 2 ML VIAL IV PRN (13:00)
--- NOTE | 2017-03-19 13:10 | History and Physical ---
History & Physical Date & Time of Service: Mar 19, 2017 at 13:00 Chief Complaint: Altered Mental Status Primary Care Physician: Vivek Ramirez M.D. History of Present Illness Source: patient, family (daughter at bedside), spouse, hospital records, [facility] ([facility]) This is an 82 y/o male with a history of ESRD on HD, a-fib, ischemic cardiomyopathy, dual-chamber AICD, CAD, carotid artery stenosis, HTN, HLD, chronic systolic CHF, DM II, hypothyroidism, gout and glaucoma who presented to the ED on 03/19 with altered mental status. The patient is a resident of [facility] and had initially presented to the ED yesterday due to a fall. The patient was then discharged back to [facility], and per family had been doing well. Today the patient has been more confused and disoriented than normal. The patient is on HD and typically receives dialysis on a // scheduled, but had received treatments M/W this week due to the holiday. The patient currently denies any complaints. Per family, the patient's mental status had started to improve while in the ED, but now is appearing to worsen again. The patient denies fevers, chills, sweats, chest pain, palpitations, claudication, cough, wheezing, shortness of breath, nausea, vomiting, abdominal pain, dysuria , hematuria, urinary retention, paralysis, weakness, numbness and tingling. Past Medical/Surgical History Medical Problems: (1) Altered mental status Status: Acute (2) Atrial fibrillation Status: Chronic (3) Congestive heart failure Status: Chronic (4) Diabetes Status: Chronic (5) End stage renal disease Status: Chronic Ischemic cardiomyopathy s/p dual chamber AICD CAD FUNMI HTN HLD Hypothyroidism Gout Glaucoma Family History Breast cancer Hyperlipidemia Hypertension Myocardial infarction Social History Smoking Status: Former Smoker (quit about 45 years ago) Smokeless Tobacco Use: No Alcohol Use: none Drug Use: none Marital Status: Housing status: m[facility] ([facility]) Occupational Status: retired Multi-Drug Resistant Organisms History of MDRO: No Allergies Coded Allergies: No Known Allergies (Unverified , 03/18/17) Home Medications Scheduled Acetaminophen (Tylenol), 650 MG PO Q4H Allopurinol (Zyloprim), 0.5 TAB PO QAM Amoxicillin (Amoxil), 2,000 MG PO UD Aspirin (Aspirin Ec), 81 MG PO QAM Atorvastatin (Lipitor), 80 MG PO HS Calcium Carbonate (Tums), 1 TAB PO TID Carvedilol (Coreg), 1 TAB PO BID Levothyroxine Sodium (Levothyroxine Sodium), 1 TAB PO QAM Multivitamins/Minerals (Mvi With Minerals), 1 TAB PO QAM Nutritional Supplements (Boost High Protein), 1 CAN PO QAM Ocuvite Preservision (Ocuvite Preservision), 1 TAB PO QAM Pantoprazole (Protonix), 40 MG PO QPM Timolol Maleate (Timolol 0.5% Oph Soln 15 Ml), 1 DROP OPB BID Travoprost (Travatan Z), 1 DROPS OPB HS Warfarin Sodium (Coumadin), 1 TAB PO QPM Scheduled PRN Guaifenesin (Siltussin Sa), 5 ML PO Q4H PRN for RN Oxycodone/Acetaminophen 5MG/325MG (Percocet 5MG/325MG), 1-2 TABLET PO Q4H PRN for Pain Review of Systems Constitutional: No fever, No chills, No sweats Eyes: No worsening of vision, No eye pain, No diplopia ENT: No hearing loss, No nasal symptoms, No trouble swallowing Respiratory: No cough, No wheezing, No shortness of breath Cardiovascular: No chest pain, No claudication, No palpitations Abdomen: No pain, No nausea, No vomiting Musculoskeletal: No joint pain, No muscle pain, No swelling Genitourinary - Female: No dysuria, No urinary retention, No hematuria Neurologic: +Confusion. No paralysis, No weakness, No numbness/tingling Integumentary: No rash, No itch, No color change Physical Exam Vital Signs Date Time Temp Pulse Resp B/P (MAP) Pulse Ox O2 Delivery O2 Flow Rate FiO2 03/19/17 10:49 Nasal Cannula 2.0 03/19/17 10:17 98 Nasal Cannula 2.0 03/19/17 10:16 36.6 63 16 153/72 89 Room Air General appearance: +Lethargic. Well-developed, well-nourished, no apparent distress Head: Normocephalic, atraumatic Eyes: Normal inspection, PERRL, EOMI ENT: +Dry oral mucosa. Normal ENT inspection, hearing grossly normal, pharynx normal Neck: Supple, no JVD, trachea midline Respiratory/Chest: Lungs clear to auscultation, normal breath sounds, no respiratory distress Cardiovascular: Regular rate & rhythm, no gallop, no murmur Abdomen/GI: +LLQ TTP. Normal bowel sounds, soft Extremities/Musculoskeletal: +Chronic venous insufficiency changes. Small open would left lateral lower leg with minimal serous drainage. Wound on left heel. No calf tenderness, no pedal edema Neurological/Psych: +Lethargic. Disoriented to place. Confused. Pt making conversation but does not always make sense. Per family, normally oriented. Normal mood/affect, oriented x 2 Skin: Normal color, warm/dry, no rash Diagnostics Laboratory Results Results Past 24 Hours Test 03/19/17 10:30 Range/Units White Blood Count 15.02 4.8-10.8 K/uL Red Blood Count 3.52 4.7-6.1 M/uL Hemoglobin 13.2 14.0-18.0 g/dL Hematocrit 40.1 42-52 % Mean Corpuscular Volume 113.9 80-100 fL Mean Corpuscular Hemoglobin 37.5 25-34 pg Mean Corpuscular Hemoglobin Concent 32.9 32-36 g/dl Platelet Count 152 130-400 K/uL Mean Platelet Volume 11.3 7.4-10.4 fL Neutrophils (%) (Auto) 81.8 % Lymphocytes (%) (Auto) 10.7 % Monocytes (%) (Auto) 7.1 % Eosinophils (%) (Auto) 0.0 % Basophils (%) (Auto) 0.1 % Neutrophils # (Auto) 12.28 1.4-6.5 K/uL Lymphocytes # (Auto) 1.61 1.2-3.4 K/uL Monocytes # (Auto) 1.07 0.11-0.59 K/uL Eosinophils # (Auto) 0.00 0-0.5 K/uL Basophils # (Auto) 0.01 0-0.2 K/uL RDW Standard Deviation 62.5 36.4-46.3 fL RDW Coefficient of Variation 15.3 11.5-14.5 % Immature Granulocyte % (Auto) 0.3 % Immature Granulocyte # (Auto) 0.05 0.00-0.02 K/uL Macrocytosis PRESENT Ovalocytes 1+ Prothrombin Time 14.7 9.0-12.0 SECONDS Prothromb Time International Ratio 1.4 0.9-1.1 Activated Partial Thromboplast Time 31.0 21.0-31.0 SECONDS Partial Thromboplastin Ratio 1.2 Sodium Level 135 136-145 mmol/L Potassium Level 6.4 3.5-5.1 mmol/L Chloride Level 97 98-107 mmol/L Carbon Dioxide Level 31 21-32 mmol/L Anion Gap 7.0 3-11 mmol/L Blood Urea Nitrogen 48 7-18 mg/dl Creatinine 6.71 0.60-1.40 mg/dl Est Creatinine Clear Calc Drug Dose 8.7 ml/min Estimated GFR () 8.0 Estimated GFR (Non- 6.9 BUN/Creatinine Ratio 7.2 10-20 Random Glucose 239 70-99 mg/dl Calcium Level 9.5 8.5-10.1 mg/dl Magnesium Level 2.2 1.8-2.4 mg/dl Total Bilirubin 0.7 0.2-1 mg/dl Direct Bilirubin 0.2 0-0.2 mg/dl Aspartate Amino Transf (AST/SGOT) 38 15-37 U/L Alanine Aminotransferase (ALT/SGPT) 19 12-78 U/L Alkaline Phosphatase 113 45-117 U/L Ammonia 26.2 11-32 umol/L Troponin I 2.110 0-0.045 ng/ml Pro-B-Type Natriuretic Peptide > 04331 0-1800 pg/ml Total Protein 8.7 6.4-8.2 gm/dl Albumin 3.0 3.4-5.0 gm/dl Lipase 59 73-393 U/L Thyroid Stimulating Hormone (TSH) 2.410 0.300-4.500 uIu/ml Microbiology Results 03/19/17 Blood Culture, Received Pending 03/19/17 Blood Culture, Received Pending Diagnostic Radiology Reviewed the following studies and agree with interpretation as follows: CT SCAN OF THE BRAIN WITHOUT IV CONTRAST CLINICAL HISTORY: Weakness. COMPARISON STUDY: CT of the brain dated 03/18/2017. TECHNIQUE: Unenhanced axial CT scan of the brain is performed from the vertex to the skull base. CT DOSE: 537.48 mGy.cm FINDINGS: Brain parenchyma: There are age-related involutional changes noting moderate subcortical and periventricular microangiopathic change. There is no hemorrhage, mass effect, or evidence of acute territorial ischemia by CT criteria. A small focus of right frontal encephalomalacia is unchanged and consistent with a remote infarct. 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 Wallis-white matter is preserved. No extra-axial fluid collection is seen. Ventricles, sulci, cisterns: Prominent secondary to involutional change. Intracranial vasculature: There is atherosclerotic calcification of the cavernous carotid and vertebral arteries. Calvarium: Unremarkable. Sinuses and mastoids: The visualized paranasal sinuses are clear. The mastoid air cells are well pneumatized. Orbits: The bony orbits are grossly intact. IMPRESSION: Senescent changes as above with no hemorrhage, mass effect, or evidence of acute territorial ischemia by CT criteria. CHEST ONE VIEW PORTABLE CLINICAL HISTORY: EVALUATE WEAKNESS dyspnea COMPARISON STUDY: 03/18/2017 FINDINGS: No change in the prior exam. Findings of interstitial pulmonary edema. Mild prominence of pulmonary vasculature. Permanent bipolar cardiac pacemaker/defibrillator in good position. IMPRESSION: Interstitial pulmonary edema and/or congestive failure. No significant change from the prior study. EKG Reviewed EKG and agree with interpretation as follows: 60 bpm, wide QRS rhythm with frequent ventricular-paced complexes. Lateral and inferior T wave inversions Impression Assessment and Plan 82 y/o male with a history of ESRD on HD, a-fib, ischemic cardiomyopathy, dual- chamber AICD, CAD, carotid artery stenosis, HTN, HLD, chronic systolic CHF, DM II, hypothyroidism, gout and glaucoma who presented to the ED on 03/19 with altered mental status. Head CT no acute disease. CXR with interstitial pulmonary edema. Potassium 6.4, last dialysis 03/17. Troponin elevated above baseline at 2.11. WBC 15.02. INR 1.4. Hyperkalemia, AMS, ESRD on HD -Admit to ICU. Home Energy Auditor consulted, will manage -Consult nephrology, appreciate recs -Pt received insulin, dextrose, calcium gluconate and Lasix in ED -Continue to monitor electrolytes Elevated troponin -Troponin chronically mildly elevated but 2.11 on admission -Trend cardiac enzymes q8h x 3 Subtherapeutic INR -INR 1.4 on admission -Pt typically takes warfarin 1 mg PO qd -Monitor daily INR, adjust prn Recent fall--daughter states pt had been complaining of right shoulder pain before, denies currently -Visited ED 03/18, right shoulder x-ray showed no acute findings A-fib, ischemic cardiomyopathy, AICD, CAD, HTN, HLD -Continue ASA, Coreg 6.25 mg PO BID, Lipitor 80 mg PO qd Chronic systolic CHF--denies any SOB, lungs clear on exam -CXR with interstitial pulmonary edema, BNP elevated -Pt received Lasix 80 mg IV x 1 in ED. May receive dialysis due to hyperkalemia DM II--last HgbA1c 2015 -Received regular insulin and dextrose due to hyperkalemia -Insulin sliding scale once potassium stable -Check BSGs q ac and qhs -Recheck HgbA1c Hypothyroidism -Continue Synthroid 175 mcg PO qd -TSH WNL Gout -Hold allopurinol Glaucoma -Continue timolol and travatan drops Left lower extremity wounds -Consult wound care nurse DVT prophylaxis -Heparin 5000 units SC q12h Code Status -Level I, FULL RESUSCITATION STATUS Level of Care Critical Care Resuscitation Status FULL RESUSCITATION VTE Prophylaxis VTE Risk Assessment Done? Y/N: Yes Risk Level: Moderate Given or contraindicated: Unfractionated heparin SQ
--- NOTE | 2017-03-19 13:47 | Critical Care Consultation ---
Critical Care Consultation Date of Consultation: Mar 19, 2017. Attending Physician: Reason for Consultation: Altered Mental Status History of Present Illness This is a 82 yo M with hx of HTN, HLD, T2DM,Gout, Moderate Dementia, Hypothyroidism, ESRD on Dialysis , CAD, A-fib on Coumadin, ischemic cardiomyopathy, dual-chamber AICD, Previous hx of falls with associated Hip fx s/p Hemiarthroplasty (05/12), Right Humerus fx (05/12) with 2 episodes of cardiac arrest postoperatively with resuscitation and recovery, currently a resident of [facility] presenting to ED with history Confusion, Lethargy and unwitnessed Fall. Much of the history is from staff at personal residential and chart review and family members. Per nursing staff, Within the last 24-48 hrs, patient seemed more lethargic and confused from baseline On 03/18, while in his room at [facility], Patient slid out of his chair and was found by nursing staff on his back with suspected head injury. He was sent to the ED at the time. His BUN/creatinine and troponin were elevated but it was attributed to need for dialysis. A chronic mildly displaced impaction fracture of the proximal humerus was noted without acute fracture. Head CT was unremarkable.He was later discharged. Today (03/19) patient was again found after an unwitnessed fall in his room and was found sitting up on the floor. He typically maintains a ,, Wed. schedule for his dialysis however, this week's schedule was changed due to the holiday. Last dialysis was Wed. on a temporary schedule. He denies CP, SOB, Abdominal pain, N/V, change in stool. Past Medical/Surgical History CAD Ischemic CM T2DM ESRD HTN HLD Hypothyroidism Gout Glaucoma R Femoral Fx s/p R Hemiarthroplasty Family History Breast cancer Hyperlipidemia Hypertension Myocardial infarction Social History Smoking Status: Former Smoker (quit about 45 years ago) Smokeless Tobacco Use: No Alcohol Use: none Drug Use: none Marital Status: Housing Status: assisted living Occupation Status: retired Allergies Coded Allergies: No Known Allergies (Unverified , 03/18/17) Home Medications Scheduled Acetaminophen (Tylenol), 650 MG PO Q4H Allopurinol (Zyloprim), 0.5 TAB PO QAM Amoxicillin (Amoxil), 2,000 MG PO UD Aspirin (Aspirin Ec), 81 MG PO QAM Atorvastatin (Lipitor), 80 MG PO HS Calcium Carbonate (Tums), 1 TAB PO TID Carvedilol (Coreg), 1 TAB PO BID Levothyroxine Sodium (Levothyroxine Sodium), 1 TAB PO QAM Multivitamins/Minerals (Mvi With Minerals), 1 TAB PO QAM Nutritional Supplements (Boost High Protein), 1 CAN PO QAM Ocuvite Preservision (Ocuvite Preservision), 1 TAB PO QAM Pantoprazole (Protonix), 40 MG PO QPM Timolol Maleate (Timolol 0.5% Oph Soln 15 Ml), 1 DROP OPB BID Travoprost (Travatan Z), 1 DROPS OPB HS Warfarin Sodium (Coumadin), 1 TAB PO QPM Scheduled PRN Guaifenesin (Siltussin Sa), 5 ML PO Q4H PRN for RN Oxycodone/Acetaminophen 5MG/325MG (Percocet 5MG/325MG), 1-2 TABLET PO Q4H PRN for Pain Current Inpatient Medications Current Inpatient Medications Medications (Trade) Dose Ordered Sig/Summer Route Start Time Stop Time Status Last Admin Dose Admin Acetaminophen (Tylenol Tab) 650 mg Q4H PRN PO 03/19/17 13:00 04/18/17 12:59 UNV Al Hydrox/Mg Hydrox/Simethicone (Maalox Max Susp) 15 ml Q4H PRN PO 03/19/17 13:00 04/18/17 12:59 UNV Magnesium Hydroxide (Milk Of Magnesia Susp) 30 ml Q12H PRN PO 03/19/17 13:00 04/18/17 12:59 UNV Ondansetron HCl (Zofran Inj) 4 mg Q6H PRN IV 03/19/17 13:00 04/18/17 12:59 UNV Insulin Aspart (novoLOG ASPART) SLIDING SCALE If C... ACHS SC 03/19/17 16:00 04/18/17 15:59 UNV Glucose (Glucose 40% Gel) 15-30 GRAMS 15 GRAMS... UD PRN PO 03/19/17 13:00 04/18/17 12:59 UNV Glucose (Glucose Chew Tab) 4-8 Tablets 4 Tabl... UD PRN PO 03/19/17 13:00 04/18/17 12:59 UNV Dextrose (Dextrose 50% 50ML Syringe) 25-50ML OF 50% DW IV FOR... UD PRN IV 03/19/17 13:00 04/18/17 12:59 UNV Glucagon (Glucagon Inj) 1 mg UD PRN SQ 03/19/17 13:00 04/18/17 12:59 UNV Aspirin (Ecotrin Tab) 81 mg QAM PO 03/20/17 09:00 04/19/17 08:59 UNV Atorvastatin Calcium (Lipitor Tab) 80 mg HS PO 03/19/17 21:00 04/18/17 20:59 UNV Calcium Carbonate (Tums Chew Tab) 500 mg TID PO 03/19/17 14:00 04/18/17 13:59 UNV Carvedilol (Coreg Tab) 6.25 mg BID PO 03/19/17 21:00 04/18/17 20:59 UNV Levothyroxine Sodium (Synthroid Tab) 175 mcg QAM PO 03/20/17 09:00 04/19/17 08:59 UNV Multivitamins/ Minerals (Multivitamin W/ Minerals Tab) 1 tab QAM PO 03/20/17 09:00 04/19/17 08:59 UNV Enteral Nutritional Formula (Boost Plus Vanilla) 1 can QAM PO 03/20/17 09:00 04/19/17 08:59 UNV Multivitamins/ Minerals (Multivitamin W/ Minerals Tab) 1 tab QAM PO 03/20/17 09:00 04/19/17 08:59 UNV Pantoprazole Sodium (Protonix Tab) 40 mg QPM PO 03/19/17 21:00 04/18/17 20:59 UNV Timolol Maleate (Timoptic 0.5% Oph Soln) 1 drops BID OPB 03/19/17 21:00 04/18/17 20:59 UNV Travoprost (Travatan Z) 1 drops HS OPB 03/19/17 21:00 04/18/17 20:59 UNV Warfarin Sodium (Coumadin Tab) 1 mg QPM PO 03/19/17 21:00 04/18/17 20:59 UNV Heparin Sodium (Porcine) (Heparin Sq 5000 Unit/0.5ml) 5,000 unit Q12 SQ 03/19/17 21:00 04/18/17 20:59 UNV Review of Systems Constitutional: + weakness, No fever, No chills Respiratory: No cough, No shortness of breath Cardiovascular: No chest pain, No palpitations Abdomen: No pain, No nausea, No vomiting Genitourinary - Male: No hematuria, No dysuria Neurologic: + weakness Endocrine: + fatigue Physical Exam Date Time Temp Pulse Resp B/P (MAP) Pulse Ox O2 Delivery O2 Flow Rate FiO2 03/19/17 13:22 61 16 96 Nasal Cannula 2.0 03/19/17 13:04 60 03/19/17 13:04 36.7 60 16 133/66 96 Room Air 03/19/17 10:49 Nasal Cannula 2.0 03/19/17 10: 98 Nasal Cannula 2.0 03/19/17 10:16 36.6 63 16 153/72 89 Room Air GENERAL: alert, no distress, non-toxic EYE EXAM: normal conjunctiva, PERRL and EOM's grossly intact NECK: supple, no nuchal rigidity, no adenopathy, non-tender LUNGS: Clear to auscultation. Normal chest wall mechanics HEART: no murmurs, S1 normal and S2 normal ABDOMEN: abdomen soft, non-tender, normo-active bowel sounds, no masses, no rebound or guarding. UPPER EXTREMITIES: upper extremities are grossly normal. Right shoulder, no bony abnormality, no ecchymoses, no erythema , no swelling, non-tender LOWER EXTREMITIES: Chronic venous insufficiency changes, No pitting edema. NEURO EXAM: AOx2 cranial nerves II-XII intact, normal speech, no weakness of arms, 2-3/5 strength Doug LE.. Gross sensation intact Laboratory Results Last 24 Hours Test 03/19/17 10:30 03/19/17 12:50 White Blood Count 15.02 K/uL Red Blood Count 3.52 M/uL Hemoglobin 13.2 g/dL Hematocrit 40.1 % Mean Corpuscular Volume 113.9 fL Mean Corpuscular Hemoglobin 37.5 pg Mean Corpuscular Hemoglobin Concent 32.9 g/dl Platelet Count 152 K/uL Mean Platelet Volume 11.3 fL Neutrophils (%) (Auto) 81.8 % Lymphocytes (%) (Auto) 10.7 % Monocytes (%) (Auto) 7.1 % Eosinophils (%) (Auto) 0.0 % Basophils (%) (Auto) 0.1 % Neutrophils # (Auto) 12.28 K/uL Lymphocytes # (Auto) 1.61 K/uL Monocytes # (Auto) 1.07 K/uL Eosinophils # (Auto) 0.00 K/uL Basophils # (Auto) 0.01 K/uL RDW Standard Deviation 62.5 fL RDW Coefficient of Variation 15.3 % Immature Granulocyte % (Auto) 0.3 % Immature Granulocyte # (Auto) 0.05 K/uL Macrocytosis PRESENT Ovalocytes 1+ Prothrombin Time 14.7 SECONDS Prothromb Time International Ratio 1.4 Activated Partial Thromboplast Time 31.0 SECONDS Partial Thromboplastin Ratio 1.2 Sodium Level 135 mmol/L Potassium Level 6.4 mmol/L Chloride Level 97 mmol/L Carbon Dioxide Level 31 mmol/L Anion Gap 7.0 mmol/L Blood Urea Nitrogen 48 mg/dl Creatinine 6.71 mg/dl Est Creatinine Clear Calc Drug Dose 8.7 ml/min Estimated GFR () 8.0 Estimated GFR (Non- 6.9 BUN/Creatinine Ratio 7.2 Random Glucose 239 mg/dl Calcium Level 9.5 mg/dl Magnesium Level 2.2 mg/dl Total Bilirubin 0.7 mg/dl Direct Bilirubin 0.2 mg/dl Aspartate Amino Transf (AST/SGOT) 38 U/L Alanine Aminotransferase (ALT/SGPT) 19 U/L Alkaline Phosphatase 113 U/L Ammonia 26.2 umol/L Troponin I 2.110 ng/ml Pro-B-Type Natriuretic Peptide > 76455 pg/ml Total Protein 8.7 gm/dl Albumin 3.0 gm/dl Lipase 59 U/L Thyroid Stimulating Hormone (TSH) 2.410 uIu/ml Diagnostic Results CHEST ONE VIEW PORTABLE CLINICAL HISTORY: EVALUATE WEAKNESS dyspnea COMPARISON STUDY: 03/18/2017 FINDINGS: No change in the prior exam. Findings of interstitial pulmonary edema. Mild prominence of pulmonary vasculature. Permanent bipolar cardiac pacemaker/defibrillator in good position. IMPRESSION: Interstitial pulmonary edema and/or congestive failure. No significant change from the prior study. CT SCAN OF THE BRAIN WITHOUT IV CONTRAST CLINICAL HISTORY: Weakness. COMPARISON STUDY: CT of the brain dated 03/18/2017. TECHNIQUE: Unenhanced axial CT scan of the brain is performed from the vertex to the skull base. CT DOSE: 537.48 mGy.cm FINDINGS: Brain parenchyma: There are age-related involutional changes noting moderate subcortical and periventricular microangiopathic change. There is no hemorrhage, mass effect, or evidence of acute territorial ischemia by CT criteria. A small focus of right frontal encephalomalacia is unchanged and consistent with a remote infarct. 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 Wallis-white matter is preserved. No extra-axial fluid collection is seen. Ventricles, sulci, cisterns: Prominent secondary to involutional change. Intracranial vasculature: There is atherosclerotic calcification of the cavernous carotid and vertebral arteries. Calvarium: Unremarkable. Sinuses and mastoids: The visualized paranasal sinuses are clear. The mastoid air cells are well pneumatized. Orbits: The bony orbits are grossly intact. IMPRESSION: Senescent changes as above with no hemorrhage, mass effect, or evidence of acute territorial ischemia by CT criteria. Assessment & Plan 82 yo M with hx of HTN, HLD, T2DM,Gout, Moderate Dementia, Hypothyroidism, ESRD on Dialysis , CAD, A-fib on Coumadin, ischemic cardiomyopathy, dual- chamber AICD, Previous hx of falls with associated Hip fx s/p Hemiarthroplasty (05/12), Right Humerus fx (05/12) with 2 episodes of cardiac arrest postoperatively with resuscitation and recovery, presenting with confusion, lethargy, Fall x2 with suspected head injury. CT Head Negative, Right shoulder XR with chronic fx STORAGE AND BACKUP ADMINISTRATOR/Neuro: Encephalopathy, Moderate Dementia GCS: 15 Pupils: Pinpoint, reactive, Alertness, Mental status improved from arrival at ED, although remains disoriented Continue to monitor CT head dated 03/19: Result: no intracranial abnormality Neurologic prophylaxis: Not indicated Respiratory: Chest X-ray: Reviewed Result: Interstitial pulmonary edema and/or congestive failure. No significant change from the prior study Cardiovascular: Elevated troponin, Afib, CAD, Ischemic CM s/p AICD HTN HLD Elevated Troponin, likley chronic due to ESRD CV drips: Remains off vasoactive medications Rhythm: Atrial Fibrillation EKG: Afib, QTc 488 ECHO: Echo date : Left ventricular systolic function is severely reduced, Ejection Fraction = 20-25%, mild to moderate mitral regurgitation, mod. tricuspid regurg Cardiology consulted Afib:Coreg, Warfarin restarted at home doses HTN: Coreg restarted at home dose CAD, HLD: Lipitor restarted at home dose Fluids/Renal: ESRD on Dialysis Hyperkalemia: K 6.4, secondary to ESRD, Dilaysis today ESRD: Cr 6.71, Dialysis today, recheck BMP's daily Dialysis planned today IV Fluids: Fluids from intravenous medications GI/Nutrition: Gout Feeding: Renal Diet Prophylaxis: On Protonix Gout: Albuterol held GERD: Continue Protonix Endocrine: T2DM, Hypothyroidism Last 24 hour glucose: 239 Insulin protocol: Yes; Drip: No Hematology: Hemoglobin 13.2 DVT prophylaxis: already on Coumadin 1 mg/day , INR 1.4 Skin/MSK: Left heel ulcer: Wound care Infectious Disease/Immunology: Tmax: 36.7 Cultures: Blood:pending Orthopedic: Right UE pain: likely chronic secondary to right humerus fx in 05/12 Right Shoulder XR: Old mildly displaced impaction fracture the proximal humerus. No dislocation. Resident Physician Supervision Note: Dr. Sandy was resident physician during care of patient. I separately evaluated patient and did history and exam. I discussed the case with the resident and generally agree with the findings and plan. Patient critically ill due to elevated potassium requiring urgent hemodialysis. 1 phthisis completed patient would be appropriate for downgraded out of the ICU. I have personally spent 35 minutes of critical care time in the direct management of this patient. This is a life/limb threatening event. This includes time spent evaluating patient, direct bedside care, chart review, placing orders, interpretation of diagnostic studies, discussion with consultants, patient, and family members, as well as other required patient management activities. This time is exclusive of all separately billable procedures, and teaching time and separate from and in addition to any other critical care service time. Documented By: Jim Perez DO Resident Tracking Resident Involvement: Resident Care Provided Care Provided: Adult Hospital Medicine
--- NOTE | 2017-03-19 15:58 | Nephrology Consultation ---
Nephrology Consultation Date & Providers Date of Consultation: Mar 19, 2017. Primary Care Provider: Vivek Ramirez M.D. Referring Provider: Reason for Consultation Management of end-stage renal disease, volume overload and hyperkalemia. History of Present Illness Mr. Morrow is a 82-year-old gentleman with past medical history significant for hypertension, diabetes, ischemic cardiomyopathy and ESRD on HD presented to the hospital with AMS. Nephrology consult was requested for management of hyperkalemia and emergency need for HD. Electronic medical record including labs and imaging personally reviewed Mr. Morrow was brought to emergency room from halfway as he was noticed to ve confused. lathergy and had 2 unwitnessed fall and concern for head trauma. CT head was otherwise unremarkable. Chest x-ray showed increased pulmonary vascular congestion. Troponin has been trending up 1.8 --> 2.0, BNP elevated. Lab showed hyperkalemia, potassium was 6.4. EKG was unremarkable and there was no acute changes. Was given Lasix insulin, D50 and albuterol and admitted to the ICU for further management.. Has known history of ESRD his primary care physician and bread wrapper is Dr. Ramirez. He gets dialysis at [facility] in [place], his regular dialysis schedule Wednesday, Wednesday, schedule was changed due to and his last dialysis was Wednesday. On admission was found to have hyperkalemia and volume overload. He was easily arousable answering questions but seems somewhat confused. Denies any cough, congestion, shortness of breath or chest pain. No headache dizziness or lightheadedness. Denies any voiding symptoms, dysuria or hematuria.. Allergies Coded Allergies: No Known Allergies (Unverified , 03/18/17) Inpatient Medications Current Inpatient Medications Medications (Trade) Dose Ordered Sig/Summer Route Start Time Stop Time Status Last Admin Dose Admin Acetaminophen (Tylenol Tab) 650 mg Q4H PRN PO 03/19/17 13:00 04/18/17 12:59 UNV Al Hydrox/Mg Hydrox/Simethicone (Maalox Max Susp) 15 ml Q4H PRN PO 03/19/17 13:00 04/18/17 12:59 UNV Magnesium Hydroxide (Milk Of Magnesia Susp) 30 ml Q12H PRN PO 03/19/17 13:00 04/18/17 12:59 UNV Ondansetron HCl (Zofran Inj) 4 mg Q6H PRN IV 03/19/17 13:00 04/18/17 12:59 UNV Insulin Aspart (novoLOG ASPART) SLIDING SCALE If C... ACHS SC 03/19/17 16:00 04/18/17 15:59 UNV Glucose (Glucose 40% Gel) 15-30 GRAMS 15 GRAMS... UD PRN PO 03/19/17 13:00 04/18/17 12:59 UNV Glucose (Glucose Chew Tab) 4-8 Tablets 4 Tabl... UD PRN PO 03/19/17 13:00 04/18/17 12:59 UNV Dextrose (Dextrose 50% 50ML Syringe) 25-50ML OF 50% DW IV FOR... UD PRN IV 03/19/17 13:00 04/18/17 12:59 UNV Glucagon (Glucagon Inj) 1 mg UD PRN SQ 03/19/17 13:00 04/18/17 12:59 UNV Allopurinol (Zyloprim Tab) 150 mg QAM PO 03/20/17 09:00 04/19/17 08:59 UNV Aspirin (Ecotrin Tab) 81 mg QAM PO 03/20/17 09:00 04/19/17 08:59 UNV Atorvastatin Calcium (Lipitor Tab) 80 mg HS PO 03/19/17 21:00 04/18/17 20:59 UNV Calcium Carbonate (Tums Chew Tab) 500 mg TID PO 03/19/17 14:00 04/18/17 13:59 UNV Carvedilol (Coreg Tab) 6.25 mg BID PO 03/19/17 21:00 04/18/17 20:59 UNV Levothyroxine Sodium (Synthroid Tab) 175 mcg QAM PO 03/20/17 09:00 04/19/17 08:59 UNV Multivitamins/ Minerals (Multivitamin W/ Minerals Tab) 1 tab QAM PO 03/20/17 09:00 04/19/17 08:59 UNV Enteral Nutritional Formula (Boost Plus Vanilla) 1 can QAM PO 03/20/17 09:00 04/19/17 08:59 UNV Multivitamins/ Minerals (Multivitamin W/ Minerals Tab) 1 tab QAM PO 03/20/17 09:00 04/19/17 08:59 UNV Pantoprazole Sodium (Protonix Tab) 40 mg QPM PO 03/19/17 21:00 04/18/17 20:59 UNV Timolol Maleate (Timoptic 0.5% Oph Soln) 1 drops BID OPB 03/19/17 21:00 04/18/17 20:59 UNV Travoprost (Travatan Z) 1 drops HS OPB 03/19/17 21:00 04/18/17 20:59 UNV Warfarin Sodium (Coumadin Tab) 1 mg QPM PO 03/19/17 21:00 04/18/17 20:59 UNV Family History Breast cancer Hyperlipidemia Hypertension Myocardial infarction Social History Smoking Status: Former Smoker (quit about 45 years ago) Smokeless Tobacco Use: No Alcohol Use: none Drug Use: none Marital Status: Housing Status: halfway ([facility] Occupation: retired Review of Systems A complete review of systems was performed. Pertinent positives are noted above. All other systems are negative. Physical Exam Date Time Temp Pulse Resp B/P (MAP) Pulse Ox O2 Delivery O2 Flow Rate FiO2 03/19/17 13:04 60 03/19/17 13:04 36.7 60 16 133/66 96 Room Air 03/19/17 10:49 Nasal Cannula 2.0 03/19/17 10:17 98 Nasal Cannula 2.0 03/19/17 10:16 36.6 63 16 153/72 89 Room Air GENERAL: Elderly male AAA x 3, pleasant, ill-appearing, sleepy, not in any distress. HEENT: Atraumatic, normocephalic. NECK: Supple, no JVD, no carotid bruit appreciated. ENT: No sinus tenderness MOUTH and THROAT: Moist oral mucosa, no oral ulcer or pharyngeal erythema RESPIRATORY: Normal breathing efforts, no accessory muscle use, clear to auscultation bilaterally, no wheezes or rales. CARDIOVASCULAR: S1, S2 normal, rate rhythm regular. ABDOMEN: Soft, nontender, positive bowel sound. MUSCULOSKELETAL: No CVA tenderness. No joint swelling, erythema or tenderness. Normal range of motion. SKIN: chronic ischemic changes in LE EXTREMITY: No lower extremity edema, NEURO: No gross focal neurological deficit, speech fluent. PSYCHIATRY: Normal mood and judgment Laboratory Results Last 24 Hours Test 03/19/17 10:30 03/19/17 12:50 White Blood Count 15.02 K/uL Red Blood Count 3.52 M/uL Hemoglobin 13.2 g/dL Hematocrit 40.1 % Mean Corpuscular Volume 113.9 fL Mean Corpuscular Hemoglobin 37.5 pg Mean Corpuscular Hemoglobin Concent 32.9 g/dl Platelet Count 152 K/uL Mean Platelet Volume 11.3 fL Neutrophils (%) (Auto) 81.8 % Lymphocytes (%) (Auto) 10.7 % Monocytes (%) (Auto) 7.1 % Eosinophils (%) (Auto) 0.0 % Basophils (%) (Auto) 0.1 % Neutrophils # (Auto) 12.28 K/uL Lymphocytes # (Auto) 1.61 K/uL Monocytes # (Auto) 1.07 K/uL Eosinophils # (Auto) 0.00 K/uL Basophils # (Auto) 0.01 K/uL RDW Standard Deviation 62.5 fL RDW Coefficient of Variation 15.3 % Immature Granulocyte % (Auto) 0.3 % Immature Granulocyte # (Auto) 0.05 K/uL Macrocytosis PRESENT Ovalocytes 1+ Prothrombin Time 14.7 SECONDS Prothromb Time International Ratio 1.4 Activated Partial Thromboplast Time 31.0 SECONDS Partial Thromboplastin Ratio 1.2 Sodium Level 135 mmol/L Potassium Level 6.4 mmol/L Chloride Level 97 mmol/L Carbon Dioxide Level 31 mmol/L Anion Gap 7.0 mmol/L Blood Urea Nitrogen 48 mg/dl Creatinine 6.71 mg/dl Est Creatinine Clear Calc Drug Dose 8.7 ml/min Estimated GFR () 8.0 Estimated GFR (Non- 6.9 BUN/Creatinine Ratio 7.2 Random Glucose 239 mg/dl Calcium Level 9.5 mg/dl Magnesium Level 2.2 mg/dl Total Bilirubin 0.7 mg/dl Direct Bilirubin 0.2 mg/dl Aspartate Amino Transf (AST/SGOT) 38 U/L Alanine Aminotransferase (ALT/SGPT) 19 U/L Alkaline Phosphatase 113 U/L Ammonia 26.2 umol/L Troponin I 2.110 ng/ml Pro-B-Type Natriuretic Peptide > 47228 pg/ml Total Protein 8.7 gm/dl Albumin 3.0 gm/dl Lipase 59 U/L Thyroid Stimulating Hormone (TSH) 2.410 uIu/ml Impression (1) End stage renal disease (2) Anemia (3) Hypertension (4) Altered mental status (5) Hyperkalemia Mr. 82-year-old gentlemen with end-stage renal disease on hemodialysis admitted to the hospital with change in mental status and possible head trauma from unwitnessed fall. Vital sign stable on admission CT scan of head was otherwise unremarkable. Electrolyte acceptable. Chest x-ray showed increase therapy pulmonary condition and lab showed hyperkalemia with potassium 6.4. Last dialysis was on Wednesday. Currently he is awake, alert but sleepy and seems somewhat confused. Denies any symptoms. Recommendations --Will schedule for emergency dialysis with 2 K bath UF as tolerated to reach estimated dry weight. Dialysis unit record shows his dry weight 84.5 and weight here is below his dry weight however clinically and radiologically he seems volume overloaded, weight here possibly not accurate. Will try UF as tolerated --avoid further IV fluid --evaluate for need for dialysis tomorrow as his regular dialysis days tomorrow --continue on Nephrocaps will give phosphate binder with meal --Epogen as needed for hemoglobin less than 10 --continue on renal diet Thank you for allowing me to participate in your patient's care. It was a pleasure to see Alphonse
--- NOTE | 2017-03-19 16:21 | Dialysis Progress Note ---
Hemodialysis Note Date of Service Mar 19, 2017. Chief Complaint F/U for end-stage renal disease, volume overload and hyperkalemia. Luis Cunha Seen and examined during hemodialysis treatment this afternoon. Has been tolerating dialysis well, blood pressure, vital sign stable. Has been slowly but is arousable NSAID question but somewhat confused. Review of Systems A complete review of systems was performed. Pertinent positives are noted above. All other systems are negative. Vital Signs Last 8 Hrs Date Time Temp Pulse Resp B/P (MAP) Pulse Ox O2 Delivery O2 Flow Rate FiO2 03/19/17 16:15 101 16 94 03/19/17 16:01 80 22 141/74 (79) 97 03/19/17 16:00 95 Nasal Cannula 2.0 03/19/17 16:00 85 14 98 03/19/17 15:46 78 24 152/109 (134) 98 03/19/17 15:45 98 13 91 03/19/17 15:31 76 14 156/57 (84) 96 03/19/17 15:30 74 3 100 03/19/17 15:30 76 134/71 03/19/17 15:16 73 23 134/71 (90) 93 03/19/17 15:15 76 134/71 03/19/17 15:14 36.5 72 22 134/71 95 Nasal Cannula 2.0 03/19/17 15:00 65 146/54 03/19/17 14:45 65 132/56 03/19/17 14:30 36.5 65 114/54 (74) 03/19/17 13:22 61 16 96 Nasal Cannula 2.0 03/19/17 13:04 60 03/19/17 13:04 36.7 60 16 133/66 96 Room Air 03/19/17 10:49 Nasal Cannula 2.0 03/19/17 10:17 98 Nasal Cannula 2.0 03/19/17 10:16 36.6 63 16 153/72 89 Room Air Last Recorded Weight Weight (Kilograms): 83.000 Physical Exam GENERAL: elderly male, , Awake, alert, somewhat confused, ill-appearing, not in any distress. NECK: Supple, no JVD. RESPIRATORY: rales b/l at bases. CARDIOVASCULAR: S1, S2 normal, rate rhythm regular. EXTREMITY: trace b/l lower extremity edema NEURO: speech fluent. PSYCHIATRY: Normal mood and judgment Social History Smokeless Tobacco Use: No Alcohol Use: none Drug Use: none Marital Status: Housing Status: [facility] ([facility]) Occupation: retired Laboratory Results Past 24 Hours 03/19/17 10:30 Red Blood Count 3.52, Mean Corpuscular Volume 113.9, Mean Corpuscular Hemoglobin 37.5, Mean Corpuscular Hemoglobin Concent 32.9, Mean Platelet Volume 11.3, Neutrophils (%) (Auto) 81.8, Lymphocytes (%) (Auto) 10.7, Monocytes (%) ( Auto) 7.1, Eosinophils (%) (Auto) 0.0, Basophils (%) (Auto) 0.1, Neutrophils # ( Auto) 12.28, Lymphocytes # (Auto) 1.61, Monocytes # (Auto) 1.07, Eosinophils # ( Auto) 0.00, Basophils # (Auto) 0.01 03/19/17 10:30 Test 03/19/17 10:30 03/19/17 12:50 03/19/17 13:15 White Blood Count 15.02 K/uL (4.8-10.8) Red Blood Count 3.52 M/uL (4.7-6.1) Hemoglobin 13.2 g/dL (14.0-18.0) Hematocrit 40.1 % (42-52) Mean Corpuscular Volume 113.9 fL (80-100) Mean Corpuscular Hemoglobin 37.5 pg (25-34) Mean Corpuscular Hemoglobin Concent 32.9 g/dl (32-36) Platelet Count 152 K/uL (130-400) Mean Platelet Volume 11.3 fL (7.4-10.4) Neutrophils (%) (Auto) 81.8 % Lymphocytes (%) (Auto) 10.7 % Monocytes (%) (Auto) 7.1 % Eosinophils (%) (Auto) 0.0 % Basophils (%) (Auto) 0.1 % Neutrophils # (Auto) 12.28 K/uL (1.4-6.5) Lymphocytes # (Auto) 1.61 K/uL (1.2-3.4) Monocytes # (Auto) 1.07 K/uL (0.11-0.59) Eosinophils # (Auto) 0.00 K/uL (0-0.5) Basophils # (Auto) 0.01 K/uL (0-0.2) RDW Standard Deviation 62.5 fL (36.4-46.3) RDW Coefficient of Variation 15.3 % (11.5-14.5) Immature Granulocyte % (Auto) 0.3 % Immature Granulocyte # (Auto) 0.05 K/uL (0.00-0.02) Macrocytosis PRESENT Ovalocytes 1+ Prothrombin Time 14.7 SECONDS (9.0-12.0) Prothromb Time International Ratio 1.4 (0.9-1.1) Activated Partial Thromboplast Time 31.0 SECONDS (21.0-31.0) Partial Thromboplastin Ratio 1.2 Anion Gap 7.0 mmol/L (3-11) Est Creatinine Clear Calc Drug Dose 8.7 ml/min Estimated GFR () 8.0 Estimated GFR (Non- 6.9 BUN/Creatinine Ratio 7.2 (10-20) Calcium Level 9.5 mg/dl (8.5-10.1) Magnesium Level 2.2 mg/dl (1.8-2.4) Total Bilirubin 0.7 mg/dl (0.2-1) Direct Bilirubin 0.2 mg/dl (0-0.2) Aspartate Amino Transf (AST/SGOT) 38 U/L (15-37) Alanine Aminotransferase (ALT/SGPT) 19 U/L (12-78) Alkaline Phosphatase 113 U/L (45-117) Ammonia 26.2 umol/L (11-32) Troponin I 2.110 ng/ml (0-0.045) Pro-B-Type Natriuretic Peptide > 83817 pg/ml (0-1800) Total Protein 8.7 gm/dl (6.4-8.2) Albumin 3.0 gm/dl (3.4-5.0) Lipase 59 U/L (73-393) Thyroid Stimulating Hormone (TSH) 2.410 uIu/ml (0.300-4.500) Bedside Glucose 195 mg/dl (70-99) Allergies Coded Allergies: No Known Allergies (Unverified , 03/18/17) Medications Current Inpatient Medications Medications (Trade) Dose Ordered Sig/Summer Route Start Time Stop Time Status Last Admin Dose Admin Acetaminophen (Tylenol Tab) 650 mg Q4H PRN PO 03/19/17 13:00 04/18/17 12:59 Al Hydrox/Mg Hydrox/Simethicone (Maalox Max Susp) 15 ml Q4H PRN PO 03/19/17 13:00 04/18/17 12:59 Magnesium Hydroxide (Milk Of Magnesia Susp) 30 ml Q12H PRN PO 03/19/17 13:00 04/18/17 12:59 Ondansetron HCl (Zofran Inj) 4 mg Q6H PRN IV 03/19/17 13:00 04/18/17 12:59 Insulin Aspart (novoLOG ASPART) SLIDING SCALE If C... ACHS SC 03/19/17 16:00 04/18/17 15:59 Glucose (Glucose 40% Gel) 15-30 GRAMS 15 GRAMS... UD PRN PO 03/19/17 13:00 04/18/17 12:59 Glucose (Glucose Chew Tab) 4-8 Tablets 4 Tabl... UD PRN PO 03/19/17 13:00 04/18/17 12:59 Dextrose (Dextrose 50% 50ML Syringe) 25-50ML OF 50% DW IV FOR... UD PRN IV 03/19/17 13:00 04/18/17 12:59 Glucagon (Glucagon Inj) 1 mg UD PRN SQ 03/19/17 13:00 04/18/17 12:59 Aspirin (Ecotrin Tab) 81 mg QAM PO 03/20/17 09:00 04/19/17 08:59 Atorvastatin Calcium (Lipitor Tab) 80 mg HS PO 03/19/17 21:00 04/18/17 20:59 Calcium Carbonate (Tums Chew Tab) 500 mg TID PO 03/19/17 14:00 04/18/17 13:59 Carvedilol (Coreg Tab) 6.25 mg BID PO 03/19/17 21:00 04/18/17 20:59 Levothyroxine Sodium (Synthroid Tab) 175 mcg DAILYBB PO 03/20/17 06:00 04/19/17 05:59 Multivitamins/ Minerals (Multivitamin W/ Minerals Tab) 1 tab QAM PO 03/20/17 09:00 04/19/17 08:59 Enteral Nutritional Formula (Boost Plus Vanilla) 1 can QDB PO 03/20/17 07:15 04/19/17 07:14 Pantoprazole Sodium (Protonix Tab) 40 mg QPM PO 03/19/17 21:00 04/18/17 20:59 Timolol Maleate (Timoptic 0.5% Oph Soln) 1 drops BID OPB 03/19/17 21:00 04/18/17 20:59 Travoprost (Travatan Z) 1 drops HS OPB 03/19/17 21:00 04/18/17 20:59 Warfarin Sodium (Coumadin Tab) 1 mg DAILY@1600 PO 03/19/17 16:00 04/18/17 15:59 Impression (1) End stage renal disease (2) Anemia (3) Hypertension (4) Altered mental status (5) Hyperkalemia Mr. 82-year-old gentlemen with end-stage renal disease on hemodialysis admitted to the hospital with change in mental status. Vital sign stable on admission CT scan of head was otherwise unremarkable. Electrolyte acceptable. Chest x- ray showed increase therapy pulmonary condition and lab showed hyperkalemia with potassium 6.4. Last dialysis was on Wednesday. Currently he is awake, alert but sleepy and seems somewhat confused. Denies any symptoms. Recommendations --getting emergency dialysis with 2 K bath for hyperkalemia with K 6.4, UF as tolerated to reach estimated dry weight. Will try UF as tolerated --avoid further IV fluid --evaluate for need for dialysis tomorrow as his regular dialysis days tomorrow --continue on Nephrocaps will give phosphate binder with meal --Epogen as needed for hemoglobin less than 10 --continue on renal diet Will be available for any q/concern during HD treatment, discussed with HD RN at bedside..
[2017-03-19] MEDS ORDERED: WARFARIN SOD 1 MG TAB PO ONE (17:00)
[2017-03-19] MEDS: INSULIN ASPART 100 UNITS/ML 3 ML PEN SC SCH ×2 (19:19→22:00)
[2017-03-19] MEDS: CALCIUM CARBONATE 500 MG CHEWABLE PO SCH ×2 (19:20→21:00)
[2017-03-19] MEDS: WARFARIN SOD 1 MG TAB PO SCH (19:22)
[2017-03-19] MEDS: ATORVASTATIN 20 MG TAB PO SCH (19:23)
[2017-03-19] MEDS: PANTOprazole SOD 40 MG TAB PO SCH (19:24)
[2017-03-19] MEDS ORDERED: ACETAMINOPHEN IV 100 ML IV PRN (20:30)
[2017-03-19 20:44] LABS: URINE APPEARANCE CLOUDY (CLEAR); URINE COLOR DK YELLOW; URINE EPITHELIAL CELL AUTO >30 /lpf (0-5); URINE NITRITE NEG (NEG); URINE PH 8.5 (4.5-7.5); URINE SPECIFIC GRAVITY 1.018 (1.000-1.030); UROBILINOGEN NEG (NEG)
[2017-03-19 20:54] LABS: MANUAL MICROSCOPIC REQUIRED? NO; REVIEW REQ? YES; SULFASALICYLIC ACID POS (NEG); URINE BILIRUBIN NEG (NEG)
[2017-03-19 20:59] LABS: URINE PATH CASTS 1-5 GRANULAR CASTS /lpf (0)
[2017-03-19] MEDS ORDERED: HEPARIN SOD 5000 UNIT/0.5 ML CARP SQ SCH (21:00)
[2017-03-19] MEDS: CARVEDILOL 6.25 MG TAB PO SCH (21:00)
[2017-03-19] MEDS: TRAVOPROST Z 0.004% OPH SOLN 2.5 ML BTL OPB SCH (21:13)
[2017-03-19] MEDS: HEPARIN SOD 5000 UNIT/0.5 ML CARP SQ SCH (21:13)
[2017-03-19] MEDS: TIMOLOL MALEATE 0.5% OP SOLN 5 ML BTL OPB SCH (21:13)
[2017-03-19 21:17] LABS: BUN/CREATININE RATIO 5.2 (10-20); CALCIUM 8.7 mg/dl (8.5-10.1); CREATININE 3.42 mg/dl (0.60-1.40)
[2017-03-19 21:20] LABS: POTASSIUM 4.6 mmol/L (3.5-5.1)
[2017-03-19 21:21] LABS: CKMB/CK RATIO 0.9 (0-3.0)
[2017-03-19] MEDS ORDERED: VANCOMYCIN INJ 1,750 MG in SODIUM CHLORIDE 0.9% 500ML 500 ML IV STA (22:40)
[2017-03-19] MEDS ORDERED: VANCOMYCIN INJ 1,500 MG in SODIUM CHLORIDE 0.9% 500ML 500 ML IV STA (22:41)
[2017-03-19] MEDS ORDERED: PIPERACILL/TAZOBAC IV 3.375 GM in DEXTROSE 5% 100ML IV ONE (23:00)
[2017-03-19] MEDS ORDERED: PIPERACILL/TAZOBAC CONSULT ACTIVE PRN (23:15)
[2017-03-19] MEDS ORDERED: VANCOMYCIN CONSULT ACTIVE PRN (23:15)
[2017-03-20] VITALS (25 sets, daily range): BP systolic 96–128; BP diastolic 50–81; PULSE 56–86; TEMP 36.3–37.4; O2SAT 90–100
[2017-03-20 05:55] LABS: BASO % 0.1 %; BASO ABS # 0.01 K/uL (0-0.2); HEMATOCRIT 35.1 % (42-52); IG% 0.3 %; LYMPH % 8.7 %; LYMPH ABS # 1.53 K/uL (1.2-3.4); MEAN CELL VOLUME 113.6 fL (80-100); MEAN CORPUSCULAR HEMOGLOBIN 37.2 pg (25-34); MEAN CORPUSCULAR HGB CONC 32.8 g/dl (32-36); MEAN PLATELET VOLUME 10.9 fL (7.4-10.4); MONO % 6.6 %; NEUT % 84.3 %; PLATELET COUNT 136 K/uL (130-400); RED BLOOD COUNT 3.09 M/uL (4.7-6.1); WHITE BLOOD COUNT 17.53 K/uL (4.8-10.8)
[2017-03-20 06:01] LABS: INR 1.6 (0.9-1.1); PROTHROMBIN TIME (PATIENT) 17.3 SECONDS (9.0-12.0)
[2017-03-20] MEDS: LEVOTHYROXINE 175 MCG TAB PO SCH (06:05)
[2017-03-20] MEDS: PIPERACILL/TAZOBAC IV 3.375 GM in DEXTROSE 5% 100ML 100 ML IV SCH ×2 (06:05→17:56)
[2017-03-20 06:24] LABS: COMPLETE YES
[2017-03-20 06:27] LABS: BUN/CREATININE RATIO 6.3 (10-20); CALCIUM 8.4 mg/dl (8.5-10.1); CREATININE 4.21 mg/dl (0.60-1.40); POTASSIUM 4.6 mmol/L (3.5-5.1)
[2017-03-20 07:49] LABS: ESTIMATED AVERAGE GLUCOSE 140 mg/dl; HA1C FLAG Normal (Normal)
[2017-03-20] MEDS: ASPIRIN 81 MG ECTAB PO SCH (08:19)
[2017-03-20] MEDS: CARVEDILOL 6.25 MG TAB PO SCH ×2 (08:19→21:00)
[2017-03-20] MEDS: BOOST PLUS VANILLA PO SCH ×2 (08:20)
[2017-03-20] MEDS: CALCIUM CARBONATE 500 MG CHEWABLE PO SCH ×3 (08:20→22:02)
[2017-03-20] MEDS: TIMOLOL MALEATE 0.5% OP SOLN 5 ML BTL OPB SCH ×2 (08:20→22:02)
[2017-03-20] MEDS: CEROVITE ADV FORMULA TAB PO SCH (08:20)
[2017-03-20] MEDS: INSULIN ASPART 100 UNITS/ML 3 ML PEN SC SCH ×4 (08:26→21:00)
[2017-03-20] MEDS: HEPARIN SOD 5000 UNIT/0.5 ML CARP SQ SCH ×2 (08:28→22:06)
[2017-03-20] MEDS ORDERED: CEROVITE ADV FORMULA TAB PO SCH (09:00)
[2017-03-20] MEDS ORDERED: ALLOPURINOL 300 MG TAB PO SCH (09:00)
[2017-03-20] MEDS ORDERED: VANCOMYCIN INJ 500 MG in SODIUM CHLORIDE 0.9% 100ML 100 ML IV STA (09:06)
--- NOTE | 2017-03-20 09:26 | Pharmacy Progress Note ---
Pharmacy Antibiotic Consult Date of Service: Mar 20, 2017. Pharmacy Dosing Scope Pharmacy is consulted to initiate vancomycin IV dosing therapy, order appropriate labs and adjust drug dose/frequency. Subjective The patient is a 82 year old male admitted on Mar 19, 2017 at 12:59. Objective Height (Feet): 5 Height (Inches): 11.00 Weight (Kilograms): 81.000 Lab Results (24hrs): Test 03/19/17 10:30 03/19/17 12:50 03/19/17 20:30 03/19/17 20:32 White Blood Count 15.02 K/uL (4.8-10.8) Red Blood Count 3.52 M/uL (4.7-6.1) Hemoglobin 13.2 g/dL (14.0-18.0) Hematocrit 40.1 % (42-52) Mean Corpuscular Volume 113.9 fL (80-100) Mean Corpuscular Hemoglobin 37.5 pg (25-34) Mean Corpuscular Hemoglobin Concent 32.9 g/dl (32-36) Platelet Count 152 K/uL (130-400) Mean Platelet Volume 11.3 fL (7.4-10.4) Neutrophils (%) (Auto) 81.8 % Lymphocytes (%) (Auto) 10.7 % Monocytes (%) (Auto) 7.1 % Eosinophils (%) (Auto) 0.0 % Basophils (%) (Auto) 0.1 % Neutrophils # (Auto) 12.28 K/uL (1.4-6.5) Lymphocytes # (Auto) 1.61 K/uL (1.2-3.4) Monocytes # (Auto) 1.07 K/uL (0.11-0.59) Eosinophils # (Auto) 0.00 K/uL (0-0.5) Basophils # (Auto) 0.01 K/uL (0-0.2) RDW Standard Deviation 62.5 fL (36.4-46.3) RDW Coefficient of Variation 15.3 % (11.5-14.5) Immature Granulocyte % (Auto) 0.3 % Immature Granulocyte # (Auto) 0.05 K/uL (0.00-0.02) Macrocytosis PRESENT Ovalocytes 1+ Prothrombin Time 14.7 SECONDS (9.0-12.0) Prothromb Time International Ratio 1.4 (0.9-1.1) Activated Partial Thromboplast Time 31.0 SECONDS (21.0-31.0) Partial Thromboplastin Ratio 1.2 Magnesium Level 2.2 mg/dl (1.8-2.4) Total Bilirubin 0.7 mg/dl (0.2-1) Direct Bilirubin 0.2 mg/dl (0-0.2) Aspartate Amino Transf (AST/SGOT) 38 U/L (15-37) Alanine Aminotransferase (ALT/SGPT) 19 U/L (12-78) Alkaline Phosphatase 113 U/L (45-117) Ammonia 26.2 umol/L (11-32) Pro-B-Type Natriuretic Peptide > 39814 pg/ml (0-1800) Total Protein 8.7 gm/dl (6.4-8.2) Albumin 3.0 gm/dl (3.4-5.0) Lipase 59 U/L (73-393) Thyroid Stimulating Hormone (TSH) 2.410 uIu/ml (0.300-4.500) Estimated Average Glucose 140 mg/dl Hemoglobin A1c 6.5 % (4.5-5.6) Urine Color DK YELLOW Urine Appearance CLOUDY (CLEAR) Urine pH 8.5 (4.5-7.5) Urine Specific [place] 1.018 (1.000-1.030) Urine Protein 1+ (NEG) Urine Glucose (UA) 1+ (NEG) Urine Ketones NEG (NEG) Urine Occult Blood 1+ (NEG) Urine Nitrite NEG (NEG) Urine Bilirubin NEG (NEG) Urine Urobilinogen NEG (NEG) Urine Leukocyte Esterase SMALL (NEG) Urine WBC (Auto) 10-30 /hpf (0-5) Urine RBC (Auto) 5-10 /hpf (0-4) Urine Hyaline Casts (Auto) 1-5 /lpf (0-5) Urine Epithelial Cells (Auto) >30 /lpf (0-5) Urine Bacteria (Auto) NEG (NEG) Urine Renal Epithelial Cells 0-5 /lpf (0-5) Urine Pathogenic Casts 1-5 GRANULAR CASTS /lpf (0) Sodium Level 134 mmol/L (136-145) Potassium Level 4.6 mmol/L (3.5-5.1) Chloride Level 97 mmol/L (98-107) Carbon Dioxide Level 29 mmol/L (21-32) Anion Gap 8.0 mmol/L (3-11) Blood Urea Nitrogen 18 mg/dl (7-18) Creatinine 3.42 mg/dl (0.60-1.40) Est Creatinine Clear Calc Drug Dose 17.1 ml/min Estimated GFR () 18.0 Estimated GFR (Non- 15.6 BUN/Creatinine Ratio 5.2 (10-20) Random Glucose 172 mg/dl (70-99) Calcium Level 8.7 mg/dl (8.5-10.1) Total Creatine Kinase 369 U/L (39-308) Creatine Kinase MB 3.2 ng/ml (0.5-3.6) Creatine Kinase MB Ratio 0.9 (0-3.0) Troponin I 1.520 ng/ml (0-0.045) Test 03/20/17 00:07 03/20/17 02:18 03/20/17 05:30 03/20/17 06:34 Bedside Glucose 194 mg/dl (70-99) 171 mg/dl (70-99) Total Creatine Kinase 230 U/L (39-308) Creatine Kinase MB 2.3 ng/ml (0.5-3.6) Creatine Kinase MB Ratio 1.0 (0-3.0) Troponin I 1.420 ng/ml (0-0.045) White Blood Count 17.53 K/uL (4.8-10.8) Red Blood Count 3.09 M/uL (4.7-6.1) Hemoglobin 11.5 g/dL (14.0-18.0) Hematocrit 35.1 % (42-52) Mean Corpuscular Volume 113.6 fL (80-100) Mean Corpuscular Hemoglobin 37.2 pg (25-34) Mean Corpuscular Hemoglobin Concent 32.8 g/dl (32-36) Platelet Count 136 K/uL (130-400) Mean Platelet Volume 10.9 fL (7.4-10.4) Neutrophils (%) (Auto) 84.3 % Lymphocytes (%) (Auto) 8.7 % Monocytes (%) (Auto) 6.6 % Eosinophils (%) (Auto) 0.0 % Basophils (%) (Auto) 0.1 % Neutrophils # (Auto) 14.78 K/uL (1.4-6.5) Lymphocytes # (Auto) 1.53 K/uL (1.2-3.4) Monocytes # (Auto) 1.15 K/uL (0.11-0.59) Eosinophils # (Auto) 0.00 K/uL (0-0.5) Basophils # (Auto) 0.01 K/uL (0-0.2) RDW Standard Deviation 63.8 fL (36.4-46.3) RDW Coefficient of Variation 15.5 % (11.5-14.5) Immature Granulocyte % (Auto) 0.3 % Immature Granulocyte # (Auto) 0.06 K/uL (0.00-0.02) Macrocytosis PRESENT Prothrombin Time 17.3 SECONDS (9.0-12.0) Prothromb Time International Ratio 1.6 (0.9-1.1) Sodium Level 133 mmol/L (136-145) Potassium Level 4.6 mmol/L (3.5-5.1) Chloride Level 97 mmol/L (98-107) Carbon Dioxide Level 32 mmol/L (21-32) Anion Gap 4.0 mmol/L (3-11) Blood Urea Nitrogen 27 mg/dl (7-18) Creatinine 4.21 mg/dl (0.60-1.40) Est Creatinine Clear Calc Drug Dose 13.9 ml/min Estimated GFR () 14.0 Estimated GFR (Non- 12.1 BUN/Creatinine Ratio 6.3 (10-20) Random Glucose 194 mg/dl (70-99) Calcium Level 8.4 mg/dl (8.5-10.1) Random Vancomycin Level < 0.8 mcg/ml Test 03/20/17 08:59 Assessment & Plan Assessment * 82 yo M admitted with severe hyperkalemia. Now with 2/2 blood cultures with GPC. * On HD as outpatient - last session Wednesday (03/17). Received urgent HD after admission (4 hr completed on 03/19) * Started on vancomycin and Zosyn * Sequence of HD sessions, vancomcyin doses, and vancomycin levels * 03/19 1844: completed 4 hr HD * 03/19 2347: vancomycin 1500 mg IV x1 (charted as admin) * 03/20 0530: vancomycin level <0.8 mcg/mL * 03/20 1005: repeat vancomycin level <0.8 mcg/mL * 03/20 1054: vancomycin 500 mg IV x1 * 03/20 ~1215: additional vancomycin 1250 mg IV x1 (total of 1750 mg this AM) * No HD anticipated today per nephrology Vancomycin * Goal pre-HD levels 15-20 mcg/mL * Level of <0.8 this AM is considered undetectable. This is likely due to some kind of error. * ? pharmacy error - may have not added medication to bag * ? nursing error - may not have been administered (but was charted as administered by overnight RN. Spoke w AM RN who was not informed of any issues) * ? lab error - not likely as repeat random level is the same * Not likely to be due to elimination 2nd HD as HD was completed at 1844 and vancomycin not charted as admin until 2346 * Was hesitant to delay additional vancomycin this AM - if level really is undetectable, this is concerning as patient has 2/2 GPC in blood. Gave small dose (500 mg - unlikely to hurt if level was drawn/reported incorrectly). Will now give additional vancomycin. * Anticipate some clearance of vancomycin by patient's kidneys (despite HD patient) as he is generating urine (400 mL already today). Normally target ~ 20 mg/kg loading dose, but will give slightly higher dose (~22 mg/kg) Plan * Vancomycin 1750 mg (500 + 1250 mg) IV now STA * Random level tomorrow AM Pharmacy will continue to follow and will adjust dose/frequency as necessary. Thank you
--- NOTE | 2017-03-20 10:47 | Nephrology Progress Note ---
Nephrology Progress Note Date of Service Mar 20, 2017. Chief Complaint F/U for end-stage renal disease, volume overload and hyperkalemia. Subjective Mr. Grady was seen and examined in his room this morning. Overall since he seems much better, currently asymptomatic, denies any shortness of breath or chest pain. He had 4 hours dialysis yesterday with 3 liters UF, tolerated well. Review of Systems A complete review of systems was performed. Pertinent positives are noted above. All other systems are negative. Vital Signs Last 8 Hrs Date Time Temp Pulse Resp B/P (MAP) Pulse Ox O2 Delivery O2 Flow Rate FiO2 03/20/17 08:00 Room Air 03/20/17 07:05 36.9 59 18 127/70 (89) 93 Room Air 03/20/17 04:38 36.3 65 18 110/64 (79) 92 Room Air Last Recorded Weight Weight (Kilograms): 81.000 Physical Exam GENERAL: Elderly male , AAA x 3, chronically ill-appearing, not in any distress. NECK: Supple, no JVD. RESPIRATORY: Normal breathing efforts, no accessory muscle use, clear to auscultation bilaterally, no wheezes or rales. CARDIOVASCULAR: S1, S2 normal, rate rhythm regular. EXTREMITY: No lower extremity edema NEURO: speech fluent. PSYCHIATRY: Normal mood and judgment Family History Breast cancer Hyperlipidemia Hypertension Myocardial infarction Social History Smokeless Tobacco Use: No Alcohol Use: none Drug Use: none Marital Status: Housing Status: longterm ([facility]) Occupation: retired Laboratory Results Past 24 Hours 03/20/17 05:30 Red Blood Count 3.09, Mean Corpuscular Volume 113.6, Mean Corpuscular Hemoglobin 37.2, Mean Corpuscular Hemoglobin Concent 32.8, Mean Platelet Volume 10.9, Neutrophils (%) (Auto) 84.3, Lymphocytes (%) (Auto) 8.7, Monocytes (%) ( Auto) 6.6, Eosinophils (%) (Auto) 0.0, Basophils (%) (Auto) 0.1, Neutrophils # ( Auto) 14.78, Lymphocytes # (Auto) 1.53, Monocytes # (Auto) 1.15, Eosinophils # ( Auto) 0.00, Basophils # (Auto) 0.01 03/19/17 20:32 03/20/17 05:30 Test 03/19/17 12:50 03/19/17 13:15 03/19/17 18:30 03/19/17 19:18 Estimated Average Glucose 140 mg/dl Hemoglobin A1c 6.5 % (4.5-5.6) Bedside Glucose 195 mg/dl (70-99) 130 mg/dl (70-99) Creatine Kinase MB Ratio (0-3.0) Test 03/19/17 20:30 03/19/17 20:32 03/19/17 22:11 03/20/17 00:07 Urine Color DK YELLOW Urine Appearance CLOUDY (CLEAR) Urine pH 8.5 (4.5-7.5) Urine Specific [place] 1.018 (1.000-1.030) Urine Protein 1+ (NEG) Urine Glucose (UA) 1+ (NEG) Urine Ketones NEG (NEG) Urine Occult Blood 1+ (NEG) Urine Nitrite NEG (NEG) Urine Bilirubin NEG (NEG) Urine Urobilinogen NEG (NEG) Urine Leukocyte Esterase SMALL (NEG) Urine WBC (Auto) 10-30 /hpf (0-5) Urine RBC (Auto) 5-10 /hpf (0-4) Urine Hyaline Casts (Auto) 1-5 /lpf (0-5) Urine Epithelial Cells (Auto) >30 /lpf (0-5) Urine Bacteria (Auto) NEG (NEG) Urine Renal Epithelial Cells 0-5 /lpf (0-5) Urine Pathogenic Casts 1-5 GRANULAR CASTS /lpf (0) Anion Gap 8.0 mmol/L (3-11) Est Creatinine Clear Calc Drug Dose 17.1 ml/min Estimated GFR () 18.0 Estimated GFR (Non- 15.6 BUN/Creatinine Ratio 5.2 (10-20) Calcium Level 8.7 mg/dl (8.5-10.1) Total Creatine Kinase 369 U/L (39-308) Creatine Kinase MB 3.2 ng/ml (0.5-3.6) Creatine Kinase MB Ratio 0.9 (0-3.0) Troponin I 1.520 ng/ml (0-0.045) Bedside Glucose 177 mg/dl (70-99) 194 mg/dl (70-99) Test 03/20/17 02:18 03/20/17 05:30 03/20/17 06:34 03/20/17 10:05 Total Creatine Kinase 230 U/L (39-308) Creatine Kinase MB 2.3 ng/ml (0.5-3.6) Creatine Kinase MB Ratio 1.0 (0-3.0) Troponin I 1.420 ng/ml (0-0.045) White Blood Count 17.53 K/uL (4.8-10.8) Red Blood Count 3.09 M/uL (4.7-6.1) Hemoglobin 11.5 g/dL (14.0-18.0) Hematocrit 35.1 % (42-52) Mean Corpuscular Volume 113.6 fL (80-100) Mean Corpuscular Hemoglobin 37.2 pg (25-34) Mean Corpuscular Hemoglobin Concent 32.8 g/dl (32-36) Platelet Count 136 K/uL (130-400) Mean Platelet Volume 10.9 fL (7.4-10.4) Neutrophils (%) (Auto) 84.3 % Lymphocytes (%) (Auto) 8.7 % Monocytes (%) (Auto) 6.6 % Eosinophils (%) (Auto) 0.0 % Basophils (%) (Auto) 0.1 % Neutrophils # (Auto) 14.78 K/uL (1.4-6.5) Lymphocytes # (Auto) 1.53 K/uL (1.2-3.4) Monocytes # (Auto) 1.15 K/uL (0.11-0.59) Eosinophils # (Auto) 0.00 K/uL (0-0.5) Basophils # (Auto) 0.01 K/uL (0-0.2) RDW Standard Deviation 63.8 fL (36.4-46.3) RDW Coefficient of Variation 15.5 % (11.5-14.5) Immature Granulocyte % (Auto) 0.3 % Immature Granulocyte # (Auto) 0.06 K/uL (0.00-0.02) Macrocytosis PRESENT Prothrombin Time 17.3 SECONDS (9.0-12.0) Prothromb Time International Ratio 1.6 (0.9-1.1) Anion Gap 4.0 mmol/L (3-11) Est Creatinine Clear Calc Drug Dose 13.9 ml/min Estimated GFR () 14.0 Estimated GFR (Non- 12.1 BUN/Creatinine Ratio 6.3 (10-20) Calcium Level 8.4 mg/dl (8.5-10.1) Random Vancomycin Level < 0.8 mcg/ml Bedside Glucose 171 mg/dl (70-99) Date/Time Source Procedure Growth Status 03/19/17 15:00 Nasal MRSA DNA Surveillance Screen - Final Specimen Negative for MRSA by DNA Probe Complete Allergies Coded Allergies: No Known Allergies (Unverified , 03/18/17) Medications Current Inpatient Medications Medications (Trade) Dose Ordered Sig/Summer Route Start Time Stop Time Status Last Admin Dose Admin Acetaminophen (Tylenol Tab) 650 mg Q4H PRN PO 03/19/17 13:00 04/18/17 12:59 Al Hydrox/Mg Hydrox/Simethicone (Maalox Max Susp) 15 ml Q4H PRN PO 03/19/17 13:00 04/18/17 12:59 Magnesium Hydroxide (Milk Of Magnesia Susp) 30 ml Q12H PRN PO 03/19/17 13:00 04/18/17 12:59 Ondansetron HCl (Zofran Inj) 4 mg Q6H PRN IV 03/19/17 13:00 04/18/17 12:59 Insulin Aspart (novoLOG ASPART) SLIDING SCALE If C... ACHS SC 03/19/17 16:00 04/18/17 15:59 03/20/17 08:26 5 UNITS Glucose (Glucose 40% Gel) 15-30 GRAMS 15 GRAMS... UD PRN PO 03/19/17 13:00 04/18/17 12:59 Glucose (Glucose Chew Tab) 4-8 Tablets 4 Tabl... UD PRN PO 03/19/17 13:00 04/18/17 12:59 Dextrose (Dextrose 50% 50ML Syringe) 25-50ML OF 50% DW IV FOR... UD PRN IV 03/19/17 13:00 04/18/17 12:59 Glucagon (Glucagon Inj) 1 mg UD PRN SQ 03/19/17 13:00 04/18/17 12:59 Aspirin (Ecotrin Tab) 81 mg QAM PO 03/20/17 09:00 04/19/17 08:59 03/20/17 08:19 81 MG Atorvastatin Calcium (Lipitor Tab) 80 mg HS PO 03/19/17 21:00 12/24/17 20:59 03/19/17 19:23 80 MG Calcium Carbonate (Tums Chew Tab) 500 mg TID PO 03/19/17 14:00 04/18/17 13:59 03/20/17 08:20 500 MG Carvedilol (Coreg Tab) 6.25 mg BID PO 03/19/17 21:00 04/18/17 20:59 03/20/17 08:19 6.25 MG Levothyroxine Sodium (Synthroid Tab) 175 mcg DAILYBB PO 03/20/17 06:00 04/19/17 05:59 03/20/17 06:05 175 MCG Multivitamins/ Minerals (Multivitamin W/ Minerals Tab) 1 tab QAM PO 03/20/17 09:00 04/19/17 08:59 03/20/17 08:20 1 TAB Enteral Nutritional Formula (Boost Plus Vanilla) 1 can QDB PO 03/20/17 07:15 04/19/17 07:14 03/20/17 08:20 1 CAN Pantoprazole Sodium (Protonix Tab) 40 mg QPM PO 03/19/17 21:00 04/18/17 20:59 03/19/17 19:24 40 MG Timolol Maleate (Timoptic 0.5% Oph Soln) 1 drops BID OPB 03/19/17 21:00 04/18/17 20:59 03/20/17 08:20 1 DROPS Travoprost (Travatan Z) 1 drops HS OPB 03/19/17 21:00 04/18/17 20:59 03/19/17 21:13 1 DROPS Warfarin Sodium (Coumadin Tab) 1 mg DAILY@1600 PO 03/19/17 16:00 04/18/17 15:59 03/19/17 19:22 1 MG Heparin Sodium (Porcine) (Heparin Sq 5000 Unit/0.5ml) 5,000 unit Q12 SQ 03/19/17 21:00 04/18/17 20:59 03/20/17 08:28 5,000 UNIT Acetaminophen 100 ml @ 400 mls/hr Q8H PRN IV 03/19/17 20:30 04/18/17 20:29 Piperacillin Sod/ Tazobactam Sod 3.375 gm/Dextrose 115 ml @ 28.75 mls/ hr Q12H IV 03/20/17 06:00 03/22/17 05:59 03/20/17 06:05 28.75 MLS/HR Vancomycin HCl (Consult) 1 ea UD PRN N/A 03/19/17 23:15 04/18/17 23:14 Piperacillin Sod/ Tazobactam Sod (Consult) 1 ea UD PRN N/A 03/19/17 23:15 04/18/17 23:14 Impression (1) End stage renal disease (2) Anemia (3) Hypertension (4) Altered mental status (5) Hyperkalemia Mr. 82-year-old gentlemen with end-stage renal disease on hemodialysis admitted to the hospital with change in mental status and possible head trauma from unwitnessed fall. Vital sign stable on admission CT scan of head was otherwise unremarkable. Electrolyte acceptable. Chest x-ray showed increase therapy pulmonary condition and lab showed hyperkalemia with potassium 6.4. Last dialysis was on Wednesday. Currently he is awake, alert but sleepy and seems somewhat confused. Denies any symptoms. Recommendations --will do dialysis today as his regular schedule with 2 K bath, UF as tolerated to reach estimated dry weight. --avoid further IV fluid --continue on Nephrocaps will give phosphate binder with meal --Epogen as needed for hemoglobin less than 10 --continue on renal diet Will follow
--- NOTE | 2017-03-20 11:37 | Progress Note ---
Subjective Date of Service: Mar 20, 2017. Subjective pt has little complaints, is concerned his eating bananas may have brought this on, but cannot tell me how many he had eaten, we discussed his blood cultures and they maybe from his fistulae but he also has some dental carries that could be to blame as source also, will await speciation of blood cultures Problem List Medical Problems: (1) Altered mental status Status: Chronic (2) Cellulitis of knee, right Status: Acute (3) Chronic kidney disease Status: Acute (4) Closed fracture of right proximal humerus Status: Acute (5) Dehydration Status: Acute (6) Dysphagia Status: Acute (7) Dysphasia Status: Acute (8) Elevated troponin Status: Acute (9) ESRD (end stage renal disease) Status: Acute (10) Fall Status: Acute (11) Fall Status: Acute (12) GI bleed Status: Acute (13) Hemorrhage of arteriovenous fistula Status: Acute (14) Hyperkalemia Status: Acute (15) Hypotension Status: Acute (16) Right leg pain Status: Acute (17) Shoulder pain, right Status: Acute (18) Supratherapeutic INR Status: Acute (19) Supratherapeutic INR Status: Acute Review of Systems Constitutional: + weakness, No fever, No chills ENT: + dental problems, No sore throat Respiratory: No cough, No sputum, No shortness of breath, No dyspnea on exertion Cardiac: No chest pain, No edema Abdomen: No pain, No nausea, No vomiting, No diarrhea Neurologic: + memory loss (+/-) Psychiatric: No depression symptoms, No anhedonism Objective Vital Signs Date Time Temp Pulse Resp B/P (MAP) Pulse Ox O2 Delivery O2 Flow Rate FiO2 03/20/17 07:05 36.9 59 18 127/70 (89) 93 Room Air 03/20/17 04:38 36.3 65 18 110/64 (79) 92 Room Air 03/20/17 00:10 37.4 86 20 105/51 (69) 100 Room Air 03/19/17 22:06 96 20 100 03/19/17 22:02 89 120/72 (99) 100 03/19/17 22:00 38.1 03/19/17 21:51 98 25 100 03/19/17 21:36 93 26 100 03/19/17 21:21 80 33 100 03/19/17 21:06 86 21 100 03/19/17 21:01 81 38 146/76 (87) 100 03/19/17 20:51 78 35 100 03/19/17 20:36 84 39 100 03/19/17 20:21 86 24 100 03/19/17 20:20 89 19 100 03/19/17 20:05 86 26 100 03/19/17 20:01 86 29 129/78 (101) 03/19/17 20:00 95 Nasal Cannula 2.0 03/19/17 20:00 39.4 03/19/17 19:50 77 19 93 03/19/17 19:46 75 28 94 03/19/17 19:31 80 23 96 03/19/17 19:16 85 28 97 03/19/17 19:10 36.9 92 152/91 (111) 03/19/17 19:01 90 35 152/91 (120) 03/19/17 18:49 82 37 125/107 (109) 03/19/17 18:46 102 31 03/19/17 18:44 89 35 144/126 (131) 03/19/17 18:32 89 18 136/91 (117) 03/19/17 18:31 92 23 03/19/17 18:30 90 136/91 03/19/17 18:16 100 30 142/102 (125) 03/19/17 18:15 97 142/102 03/19/17 18:01 97 29 138/92 (105) 03/19/17 18:00 36.5 03/19/17 18:00 97 138/92 03/19/17 17:46 95 16 150/73 (99) 03/19/17 17:45 91 150/73 03/19/17 17:31 94 14 143/91 (107) 03/19/17 17:30 80 143/91 03/19/17 17:16 93 9 146/90 (118) 03/19/17 17:15 86 146/90 03/19/17 17:02 79 23 123/96 (108) 03/19/17 17:01 90 19 03/19/17 17:00 82 123/96 03/19/17 16:46 83 8 127/89 (112) 03/19/17 16:45 87 127/89 03/19/17 16:31 84 24 141/54 (94) 96 03/19/17 16:30 81 141/54 03/19/17 16:16 99 29 148/70 (88) 90 03/19/17 16:15 101 16 94 03/19/17 16:15 84 148/70 03/19/17 16:01 80 22 141/74 (79) 97 03/19/17 16:00 95 Nasal Cannula 2.0 03/19/17 16:00 85 14 98 03/19/17 16:00 77 141/74 03/19/17 15:46 78 24 152/109 (134) 98 03/19/17 15:45 98 13 91 03/19/17 15:45 74 152/100 03/19/17 15:31 76 14 156/57 (84) 96 03/19/17 15:30 74 3 100 03/19/17 15:30 76 134/71 03/19/17 15:16 73 23 134/71 (90) 93 03/19/17 15:15 76 134/71 03/19/17 15:14 36.5 72 22 134/71 95 Nasal Cannula 2.0 03/19/17 15:00 65 146/54 03/19/17 14:45 65 132/56 03/19/17 14:30 36.5 65 114/54 (74) 03/19/17 13:22 61 16 96 Nasal Cannula 2.0 03/19/17 13:04 60 03/19/17 13:04 36.7 60 16 133/66 96 Room Air 03/19/17 10:49 Nasal Cannula 2.0 03/19/17 10:17 98 Nasal Cannula 2.0 03/19/17 10:16 36.6 63 16 153/72 89 Room Air Physical Exam General Appearance: WD/WN, + mild distress Eyes: PERRL, EOMI Respiratory/Chest: chest non-tender, lungs clear, normal breath sounds Cardiovascular: + systolic murmur, + irregularly irregular Abdomen: normal bowel sounds, non tender, soft Extremities: + pertinent finding (has left bicep AV fistulae, has decreased peripheral pulses) Laboratory Results Last 24 Hours Test 03/19/17 10:30 03/19/17 12:50 03/19/17 13:15 03/19/17 18:30 White Blood Count 15.02 K/uL Red Blood Count 3.52 M/uL Hemoglobin 13.2 g/dL Hematocrit 40.1 % Mean Corpuscular Volume 113.9 fL Mean Corpuscular Hemoglobin 37.5 pg Mean Corpuscular Hemoglobin Concent 32.9 g/dl Platelet Count 152 K/uL Mean Platelet Volume 11.3 fL Neutrophils (%) (Auto) 81.8 % Lymphocytes (%) (Auto) 10.7 % Monocytes (%) (Auto) 7.1 % Eosinophils (%) (Auto) 0.0 % Basophils (%) (Auto) 0.1 % Neutrophils # (Auto) 12.28 K/uL Lymphocytes # (Auto) 1.61 K/uL Monocytes # (Auto) 1.07 K/uL Eosinophils # (Auto) 0.00 K/uL Basophils # (Auto) 0.01 K/uL RDW Standard Deviation 62.5 fL RDW Coefficient of Variation 15.3 % Immature Granulocyte % (Auto) 0.3 % Immature Granulocyte # (Auto) 0.05 K/uL Macrocytosis PRESENT Ovalocytes 1+ Prothrombin Time 14.7 SECONDS Prothromb Time International Ratio 1.4 Activated Partial Thromboplast Time 31.0 SECONDS Partial Thromboplastin Ratio 1.2 Sodium Level 135 mmol/L Potassium Level 6.4 mmol/L Chloride Level 97 mmol/L Carbon Dioxide Level 31 mmol/L Anion Gap 7.0 mmol/L Blood Urea Nitrogen 48 mg/dl Creatinine 6.71 mg/dl Est Creatinine Clear Calc Drug Dose 8.7 ml/min Estimated GFR () 8.0 Estimated GFR (Non- 6.9 BUN/Creatinine Ratio 7.2 Random Glucose 239 mg/dl Calcium Level 9.5 mg/dl Magnesium Level 2.2 mg/dl Total Bilirubin 0.7 mg/dl Direct Bilirubin 0.2 mg/dl Aspartate Amino Transf (AST/SGOT) 38 U/L Alanine Aminotransferase (ALT/SGPT) 19 U/L Alkaline Phosphatase 113 U/L Ammonia 26.2 umol/L Troponin I 2.110 ng/ml Pro-B-Type Natriuretic Peptide > 50477 pg/ml Total Protein 8.7 gm/dl Albumin 3.0 gm/dl Lipase 59 U/L Thyroid Stimulating Hormone (TSH) 2.410 uIu/ml Estimated Average Glucose 140 mg/dl Hemoglobin A1c 6.5 % Bedside Glucose 195 mg/dl Creatine Kinase MB Ratio Test 03/19/17 19:18 03/19/17 20:30 03/19/17 20:32 03/19/17 22:11 Bedside Glucose 130 mg/dl 177 mg/dl Urine Color DK YELLOW Urine Appearance CLOUDY Urine pH 8.5 Urine Specific [place] 1.018 Urine Protein 1+ Urine Glucose (UA) 1+ Urine Ketones NEG Urine Occult Blood 1+ Urine Nitrite NEG Urine Bilirubin NEG Urine Urobilinogen NEG Urine Leukocyte Esterase SMALL Urine WBC (Auto) 10-30 /hpf Urine RBC (Auto) 5-10 /hpf Urine Hyaline Casts (Auto) 1-5 /lpf Urine Epithelial Cells (Auto) >30 /lpf Urine Bacteria (Auto) NEG Urine Renal Epithelial Cells 0-5 /lpf Urine Pathogenic Casts 1-5 GRANULAR CASTS /lpf Sodium Level 134 mmol/L Potassium Level 4.6 mmol/L Chloride Level 97 mmol/L Carbon Dioxide Level 29 mmol/L Anion Gap 8.0 mmol/L Blood Urea Nitrogen 18 mg/dl Creatinine 3.42 mg/dl Est Creatinine Clear Calc Drug Dose 17.1 ml/min Estimated GFR () 18.0 Estimated GFR (Non- 15.6 BUN/Creatinine Ratio 5.2 Random Glucose 172 mg/dl Calcium Level 8.7 mg/dl Total Creatine Kinase 369 U/L Creatine Kinase MB 3.2 ng/ml Creatine Kinase MB Ratio 0.9 Troponin I 1.520 ng/ml Test 03/20/17 00:07 03/20/17 02:18 03/20/17 05:30 03/20/17 06:34 Bedside Glucose 194 mg/dl 171 mg/dl Total Creatine Kinase 230 U/L Creatine Kinase MB 2.3 ng/ml Creatine Kinase MB Ratio 1.0 Troponin I 1.420 ng/ml White Blood Count 17.53 K/uL Red Blood Count 3.09 M/uL Hemoglobin 11.5 g/dL Hematocrit 35.1 % Mean Corpuscular Volume 113.6 fL Mean Corpuscular Hemoglobin 37.2 pg Mean Corpuscular Hemoglobin Concent 32.8 g/dl Platelet Count 136 K/uL Mean Platelet Volume 10.9 fL Neutrophils (%) (Auto) 84.3 % Lymphocytes (%) (Auto) 8.7 % Monocytes (%) (Auto) 6.6 % Eosinophils (%) (Auto) 0.0 % Basophils (%) (Auto) 0.1 % Neutrophils # (Auto) 14.78 K/uL Lymphocytes # (Auto) 1.53 K/uL Monocytes # (Auto) 1.15 K/uL Eosinophils # (Auto) 0.00 K/uL Basophils # (Auto) 0.01 K/uL RDW Standard Deviation 63.8 fL RDW Coefficient of Variation 15.5 % Immature Granulocyte % (Auto) 0.3 % Immature Granulocyte # (Auto) 0.06 K/uL Macrocytosis PRESENT Prothrombin Time 17.3 SECONDS Prothromb Time International Ratio 1.6 Sodium Level 133 mmol/L Potassium Level 4.6 mmol/L Chloride Level 97 mmol/L Carbon Dioxide Level 32 mmol/L Anion Gap 4.0 mmol/L Blood Urea Nitrogen 27 mg/dl Creatinine 4.21 mg/dl Est Creatinine Clear Calc Drug Dose 13.9 ml/min Estimated GFR () 14.0 Estimated GFR (Non- 12.1 BUN/Creatinine Ratio 6.3 Random Glucose 194 mg/dl Calcium Level 8.4 mg/dl Random Vancomycin Level < 0.8 mcg/ml Assessment and Plan 82 y/o male presents with acute encephalopathy and hyperkalemia, history of ESRD on HD, a-fib, ischemic cardiomyopathy, dual-chamber AICD, CAD, carotid artery stenosis, HTN, HLD, chronic systolic CHF, DM II, hypothyroidism, gout and glaucoma Hyperkalemia, ESRD on HD received insulin, dextrose, calcium gluconate and Lasix in ED -Continue to monitor electrolytes, nephrology to manage also with dialysis Encephalopathy, metabolic, 2 of 2 blood cultures shows gram positives, consider access or dental a source, started on vanco and zosyn, pending echo for endocarditis, will have ID weigh in once we find species Elevated troponin chronically mildly elevated -Trend cardiac enzymes has reduced may be due to renal failure Subtherapeutic -INR 1.4 on admission -Pt typically takes warfarin 1 mg PO qd, follow with afib Recent fall--daughter states pt had been complaining of right shoulder pain x- ray showed no acute findings A-fib, ischemic cardiomyopathy, AICD, CAD, HTN, HLD -Continue ASA, Coreg 6.25 mg PO BID, Lipitor 80 mg PO qd Chronic systolic/diastolic HF--denies any SOB, -CXR with interstitial pulmonary edema, BNP elevated DM II--last HgbA1c 2015 -Insulin sliding scale once potassium stable -Check BSGs q ac and qhs Hypothyroidism Synthroid 175 mcg PO qd Gout allopurinol Glaucoma timolol and travatan drops Left lower extremity wounds-Consult wound care nurse DVT prophylaxis-coumadin Code Status -Level I, FULL RESUSCITATION STATUS
[2017-03-20] MEDS ORDERED: VANCOMYCIN INJ 1,250 MG in SODIUM CHLORIDE 0.9% 250ML 250 ML IV STA (12:05)
--- NOTE | 2017-03-20 12:16 | Cardiology Consultation ---
Cardiology Consultation Date of Consultation: Mar 20, 2017. Requesting Physician: Dr Aguilar Reason for Consultation: Elevated troponin, ICD, atrial fibrillation Pt evaluation today including: conversation w/ patient, physical exam, lab review, review of studies, review of inpatient medication list History of Present Illness This is an 82-year-old gentleman who we had been following for his cardiovascular conditions, however the last time I saw him was 12/02/2015 and he may have been lost to follow-up subsequently. When asked if he see somebody else for cardiology care he doesn't know what I'm talking about. It is possible he hasn't seen anyone. He has a history of presumed ischemic cardiomyopathy (based on stress testing, he has refused catheterization) as well as now permanent atrial fibrillation ( we had anticipated cardioversion following device implantation but he has refused). He had bradycardia and nonsustained ventricular tachycardia as well as meeting indications for primary prevention of sudden cardiac and therefore had a dual-chamber ICD implanted on August 22, 2009. That device reached [facility] and was replaced on 08/27/2015, since he was in permanent atrial fibrillation it was replaced with a single-chamber ICD. As of November 2015 his device had been working well and he was doing well. He now is admitted with a change in mental status and a recent fall. He is supposed to be on warfarin for his atrial fibrillation as far as I know, however his INR was normal on admission. His troponin was observed to be elevated to maximum 2.1 after admission. He was being dialyzed when I saw him. He has no complaints, he denies shortness of breath and chest discomfort. He feels that we should know who he is seeing and should not be asking him, but he can't remember who he sees. He can provide essentially no useful history. 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 (6) Hypertension (7) Atrial fibrillation (8) Diabetes Family History Breast cancer Hyperlipidemia Hypertension Myocardial infarction Social History Smoking Status: Former Smoker (quit about 45 years ago) History of Alcohol Use: No Review of Systems Constitutional: No fever, No weight loss, No weakness Respiratory: No cough, No sputum, No shortness of breath, No dyspnea on exertion Cardiac: No chest pain, No edema Abdomen: No pain, No nausea, No vomiting, No diarrhea, No GI bleeding Male : No urinary frequency, No nocturia more than once/night, No slowing stream, No sexual dysfunction Neurologic: No paralysis, No weakness, No numbness/tingling, No balance problems Heme: No abnormal bleeding/bruising, No clotting problems Endo: No fatigue Skin: No problem reported Although the patient is talkative I don't know that we can rely on his review of systems All Other Systems: Reviewed and Negative Allergies Coded Allergies: No Known Allergies (Unverified , 03/18/17) Medications Current Inpatient Medications Medications (Trade) Dose Ordered Sig/Summer Route Start Time Stop Time Status Last Admin Dose Admin Acetaminophen (Tylenol Tab) 650 mg Q4H PRN PO 03/19/17 13:00 04/18/17 12:59 Al Hydrox/Mg Hydrox/Simethicone (Maalox Max Susp) 15 ml Q4H PRN PO 03/19/17 13:00 04/18/17 12:59 Magnesium Hydroxide (Milk Of Magnesia Susp) 30 ml Q12H PRN PO 03/19/17 13:00 04/18/17 12:59 Ondansetron HCl (Zofran Inj) 4 mg Q6H PRN IV 03/19/17 13:00 04/18/17 12:59 Insulin Aspart (novoLOG ASPART) SLIDING SCALE If C... ACHS SC 03/19/17 16:00 04/18/17 15:59 03/20/17 08:26 5 UNITS Glucose (Glucose 40% Gel) 15-30 GRAMS 15 GRAMS... UD PRN PO 03/19/17 13:00 04/18/17 12:59 Glucose (Glucose Chew Tab) 4-8 Tablets 4 Tabl... UD PRN PO 03/19/17 13:00 04/18/17 12:59 Dextrose (Dextrose 50% 50ML Syringe) 25-50ML OF 50% DW IV FOR... UD PRN IV 03/19/17 13:00 04/18/17 12:59 Glucagon (Glucagon Inj) 1 mg UD PRN SQ 03/19/17 13:00 04/18/17 12:59 Aspirin (Ecotrin Tab) 81 mg QAM PO 03/20/17 09:00 04/19/17 08:59 11/25/17 08:19 81 MG Atorvastatin Calcium (Lipitor Tab) 80 mg HS PO 03/19/17 21:00 04/18/17 20:59 03/19/17 19:23 80 MG Calcium Carbonate (Tums Chew Tab) 500 mg TID PO 03/19/17 14:00 04/18/17 13:59 03/20/17 08:20 500 MG Carvedilol (Coreg Tab) 6.25 mg BID PO 03/19/17 21:00 04/18/17 20:59 03/20/17 08:19 6.25 MG Levothyroxine Sodium (Synthroid Tab) 175 mcg DAILYBB PO 03/20/17 06:00 04/19/17 05:59 03/20/17 06:05 175 MCG Multivitamins/ Minerals (Multivitamin W/ Minerals Tab) 1 tab QAM PO 03/20/17 09:00 04/19/17 08:59 03/20/17 08:20 1 TAB Enteral Nutritional Formula (Boost Plus Vanilla) 1 can QDB PO 03/20/17 07:15 04/19/17 07:14 03/20/17 08:20 1 CAN Pantoprazole Sodium (Protonix Tab) 40 mg QPM PO 03/19/17 21:00 04/18/17 20:59 03/19/17 19:24 40 MG Timolol Maleate (Timoptic 0.5% Oph Soln) 1 drops BID OPB 03/19/17 21:00 04/18/17 20:59 03/20/17 08:20 1 DROPS Travoprost (Travatan Z) 1 drops HS OPB 03/19/17 21:00 04/18/17 20:59 03/19/17 21:13 1 DROPS Warfarin Sodium (Coumadin Tab) 1 mg DAILY@1600 PO 03/19/17 16:00 04/18/17 15:59 03/19/17 19:22 1 MG Heparin Sodium (Porcine) (Heparin Sq 5000 Unit/0.5ml) 5,000 unit Q12 SQ 03/19/17 21:00 04/18/17 20:59 03/20/17 08:28 5,000 UNIT Acetaminophen 100 ml @ 400 mls/hr Q8H PRN IV 03/19/17 20:30 04/18/17 20:29 Piperacillin Sod/ Tazobactam Sod 3.375 gm/Dextrose 115 ml @ 28.75 mls/ hr Q12H IV 03/20/17 06:00 03/22/17 05:59 03/20/17 06:05 28.75 MLS/HR Vancomycin HCl (Consult) 1 ea UD PRN N/A 03/19/17 23:15 04/18/17 23:14 Piperacillin Sod/ Tazobactam Sod (Consult) 1 ea UD PRN N/A 03/19/17 23:15 04/18/17 23:14 Physical Exam Vital Signs Past 12 Hours Date Time Temp Pulse Resp B/P (MAP) Pulse Ox O2 Delivery O2 Flow Rate FiO2 03/20/17 11:45 61 111/61 03/20/17 11:30 63 114/60 03/20/17 11:16 36.7 64 18 120/81 (94) 95 Room Air 03/20/17 11:15 36.4 56 128/68 (88) 03/20/17 11:15 60 113/55 03/20/17 10:52 86 94 03/20/17 08:00 Room Air 03/20/17 07:05 36.9 59 18 127/70 (89) 93 Room Air 03/20/17 04:38 36.3 65 18 110/64 (79) 92 Room Air 03/20/17 00:10 37.4 86 20 105/51 (69) 100 Room Air Constitutional: General Apperance: heathly-appearing Level of Distress: NAD Head: normocephalic Eyes: EOM: EOMI ENMT: normal ENT inspection, hearing grossly normal Neck: supple, no masses Lungs: Respiratory effort: no dyspnea, good air movement Auscultation: breath sounds normal, no wheezing Cardiovascular: Heart Auscultation: no rubs, no gallops, II/ WSM, irregular rate rhythm Peripheral Pulses: Bruits: none appreciated Abdomen: Bowel Sounds: normal Inspection & Palpation: soft, no tenderness, guarding & rebound, no masses Musculoskeletal: normal strength (5/5 throughout) Extremities: no edema Neurologic: Cranial Nerves: grossly intact Sensation: grossly intact Data Laboratory Results: Last 24 Hours Test 03/19/17 12:50 03/19/17 13:15 03/19/17 18:30 03/19/17 19:18 Estimated Average Glucose 140 mg/dl Hemoglobin A1c 6.5 % Bedside Glucose 195 mg/dl 130 mg/dl Creatine Kinase MB Ratio Test 03/19/17 20:30 03/19/17 20:32 03/19/17 22:11 03/20/17 00:07 Urine Color DK YELLOW Urine Appearance CLOUDY Urine pH 8.5 Urine Specific [place] 1.018 Urine Protein 1+ Urine Glucose (UA) 1+ Urine Ketones NEG Urine Occult Blood 1+ Urine Nitrite NEG Urine Bilirubin NEG Urine Urobilinogen NEG Urine Leukocyte Esterase SMALL Urine WBC (Auto) 10-30 /hpf Urine RBC (Auto) 5-10 /hpf Urine Hyaline Casts (Auto) 1-5 /lpf Urine Epithelial Cells (Auto) >30 /lpf Urine Bacteria (Auto) NEG Urine Renal Epithelial Cells 0-5 /lpf Urine Pathogenic Casts 1-5 GRANULAR CASTS /lpf Sodium Level 134 mmol/L Potassium Level 4.6 mmol/L Chloride Level 97 mmol/L Carbon Dioxide Level 29 mmol/L Anion Gap 8.0 mmol/L Blood Urea Nitrogen 18 mg/dl Creatinine 3.42 mg/dl Est Creatinine Clear Calc Drug Dose 17.1 ml/min Estimated GFR () 18.0 Estimated GFR (Non- 15.6 BUN/Creatinine Ratio 5.2 Random Glucose 172 mg/dl Calcium Level 8.7 mg/dl Total Creatine Kinase 369 U/L Creatine Kinase MB 3.2 ng/ml Creatine Kinase MB Ratio 0.9 Troponin I 1.520 ng/ml Bedside Glucose 177 mg/dl 194 mg/dl Test 03/20/17 02:18 03/20/17 05:30 03/20/17 06:34 03/20/17 10:05 Total Creatine Kinase 230 U/L Creatine Kinase MB 2.3 ng/ml Creatine Kinase MB Ratio 1.0 Troponin I 1.420 ng/ml White Blood Count 17.53 K/uL Red Blood Count 3.09 M/uL Hemoglobin 11.5 g/dL Hematocrit 35.1 % Mean Corpuscular Volume 113.6 fL Mean Corpuscular Hemoglobin 37.2 pg Mean Corpuscular Hemoglobin Concent 32.8 g/dl Platelet Count 136 K/uL Mean Platelet Volume 10.9 fL Neutrophils (%) (Auto) 84.3 % Lymphocytes (%) (Auto) 8.7 % Monocytes (%) (Auto) 6.6 % Eosinophils (%) (Auto) 0.0 % Basophils (%) (Auto) 0.1 % Neutrophils # (Auto) 14.78 K/uL Lymphocytes # (Auto) 1.53 K/uL Monocytes # (Auto) 1.15 K/uL Eosinophils # (Auto) 0.00 K/uL Basophils # (Auto) 0.01 K/uL RDW Standard Deviation 63.8 fL RDW Coefficient of Variation 15.5 % Immature Granulocyte % (Auto) 0.3 % Immature Granulocyte # (Auto) 0.06 K/uL Macrocytosis PRESENT Prothrombin Time 17.3 SECONDS Prothromb Time International Ratio 1.6 Sodium Level 133 mmol/L Potassium Level 4.6 mmol/L Chloride Level 97 mmol/L Carbon Dioxide Level 32 mmol/L Anion Gap 4.0 mmol/L Blood Urea Nitrogen 27 mg/dl Creatinine 4.21 mg/dl Est Creatinine Clear Calc Drug Dose 13.9 ml/min Estimated GFR () 14.0 Estimated GFR (Non- 12.1 BUN/Creatinine Ratio 6.3 Random Glucose 194 mg/dl Calcium Level 8.4 mg/dl Random Vancomycin Level < 0.8 mcg/ml < 0.8 mcg/ml Bedside Glucose 171 mg/dl Test 03/20/17 10:51 Bedside Glucose 171 mg/dl EKG: Atrial fibrillation with intermittent AV conduction and ventricular pacing appropriately Telemetry reviewed: Atrial fibrillation with a controlled heart rate and ventricular pacing Assessment & Plan #1. Positive troponin: He does have an elevated troponin, the cause is not clear. We can't read his electrocardiogram due to baseline abnormalities and intermittent pacing. I don't think this represents an acute myocardial infarction but he doesn't have any clear reason to have demand ischemia, renal failure will elevate troponin to some extent however. He has refused catheterization in the past and I don't think it is indicated currently. I would not alter his therapy based on these findings. #2. Atrial fibrillation: He has permanent atrial fibrillation, the rate appears to be well-controlled and he does intermittently pace with his ICD. He should be on an anticoagulant, I believe he is supposed to be on warfarin but his INR was normal on admission. I'm not sure this is the best drug for him. #3. Cardiomyopathy: He does not appear to have significant congestive heart failure based on exam or symptoms today, however his chest x-ray on admission and his BNP suggested. He is being dialyzed which should correct that issue. I don't have recent studies for his left ventricular function. #4. ICD: As far as I know his ICD has not been evaluated this year, I will make arrangements to have that done. It appears to be working well clinically however. Thank you for allowing me to participate in his care.
[2017-03-20] MEDS: WARFARIN SOD 1 MG TAB PO SCH (16:31)
[2017-03-20] MEDS: TRAVOPROST Z 0.004% OPH SOLN 2.5 ML BTL OPB SCH (22:02)
[2017-03-20] MEDS: PANTOprazole SOD 40 MG TAB PO SCH (22:03)
[2017-03-20] MEDS: ATORVASTATIN 20 MG TAB PO SCH (22:04)
[2017-03-21] VITALS (8 sets, daily range): BP systolic 107–122; BP diastolic 52–67; PULSE 60–81; TEMP 36.4–36.9; O2SAT 93–97
[2017-03-21] MEDS: PIPERACILL/TAZOBAC IV 3.375 GM in DEXTROSE 5% 100ML 100 ML IV SCH ×2 (05:23→17:15)
[2017-03-21] MEDS: LEVOTHYROXINE 175 MCG TAB PO SCH (05:24)
[2017-03-21 06:39] LABS: BASO % 0.2 %; BASO ABS # 0.02 K/uL (0-0.2); EOS % 1.1 %; HEMATOCRIT 37.9 % (42-52); IG% 0.3 %; LYMPH ABS # 1.59 K/uL (1.2-3.4); MEAN CELL VOLUME 112.8 fL (80-100); MEAN CORPUSCULAR HEMOGLOBIN 36.6 pg (25-34); MEAN CORPUSCULAR HGB CONC 32.5 g/dl (32-36); MONO % 11.2 %; NEUT % 71.2 %; PLATELET COUNT 157 K/uL (130-400); RED BLOOD COUNT 3.36 M/uL (4.7-6.1); WHITE BLOOD COUNT 9.94 K/uL (4.8-10.8)
[2017-03-21 06:44] LABS: INR 1.6 (0.9-1.1); PROTHROMBIN TIME (PATIENT) 17.8 SECONDS (9.0-12.0)
[2017-03-21] MEDS: INSULIN ASPART 100 UNITS/ML 3 ML PEN SC SCH ×4 (07:00→21:00)
[2017-03-21 07:05] LABS: COMPLETE YES
[2017-03-21 07:07] LABS: BUN/CREATININE RATIO 7.3 (10-20); CALCIUM 8.8 mg/dl (8.5-10.1); CREATININE 3.83 mg/dl (0.60-1.40); POTASSIUM 4.3 mmol/L (3.5-5.1)
[2017-03-21] MEDS: ASPIRIN 81 MG ECTAB PO SCH (08:07)
[2017-03-21] MEDS: BOOST PLUS VANILLA PO SCH ×2 (08:07)
[2017-03-21] MEDS: CEROVITE ADV FORMULA TAB PO SCH (08:08)
[2017-03-21] MEDS: CARVEDILOL 6.25 MG TAB PO SCH ×2 (08:08→21:20)
[2017-03-21] MEDS: CALCIUM CARBONATE 500 MG CHEWABLE PO SCH ×3 (08:08→21:20)
[2017-03-21] MEDS: HEPARIN SOD 5000 UNIT/0.5 ML CARP SQ SCH ×2 (08:16→21:21)
--- NOTE | 2017-03-21 09:06 | Pharmacy Progress Note ---
Pharmacy Antibiotic Prog Note Date of Service Mar 21, 2017. Subjective The patient is currently receiving vancomycin prn HD and levels Objective Height (Feet): 5 Height (Inches): 11.00 Weight (Kilograms): 80.500 Lab Results (24hrs): Test 03/20/17 10:05 03/20/17 18:37 03/20/17 21:06 03/21/17 06:18 Random Vancomycin Level < 0.8 mcg/ml 15.6 mcg/ml Magnesium Level 2.0 mg/dl (1.8-2.4) Bedside Glucose 120 mg/dl (70-99) White Blood Count 9.94 K/uL (4.8-10.8) Red Blood Count 3.36 M/uL (4.7-6.1) Hemoglobin 12.3 g/dL (14.0-18.0) Hematocrit 37.9 % (42-52) Mean Corpuscular Volume 112.8 fL (80-100) Mean Corpuscular Hemoglobin 36.6 pg (25-34) Mean Corpuscular Hemoglobin Concent 32.5 g/dl (32-36) Platelet Count 157 K/uL (130-400) Mean Platelet Volume 11.0 fL (7.4-10.4) Neutrophils (%) (Auto) 71.2 % Lymphocytes (%) (Auto) 16.0 % Monocytes (%) (Auto) 11.2 % Eosinophils (%) (Auto) 1.1 % Basophils (%) (Auto) 0.2 % Neutrophils # (Auto) 7.08 K/uL (1.4-6.5) Lymphocytes # (Auto) 1.59 K/uL (1.2-3.4) Monocytes # (Auto) 1.11 K/uL (0.11-0.59) Eosinophils # (Auto) 0.11 K/uL (0-0.5) Basophils # (Auto) 0.02 K/uL (0-0.2) RDW Standard Deviation 62.5 fL (36.4-46.3) RDW Coefficient of Variation 15.2 % (11.5-14.5) Immature Granulocyte % (Auto) 0.3 % Immature Granulocyte # (Auto) 0.03 K/uL (0.00-0.02) Nucleated RBC Absolute Count (auto) 0.03 K/uL (0-0) Nucleated Red Blood Cells % 0.3 % Macrocytosis PRESENT Prothrombin Time 17.8 SECONDS (9.0-12.0) Prothromb Time International Ratio 1.6 (0.9-1.1) Sodium Level 134 mmol/L (136-145) Potassium Level 4.3 mmol/L (3.5-5.1) Chloride Level 98 mmol/L (98-107) Carbon Dioxide Level 28 mmol/L (21-32) Anion Gap 9.0 mmol/L (3-11) Blood Urea Nitrogen 28 mg/dl (7-18) Creatinine 3.83 mg/dl (0.60-1.40) Est Creatinine Clear Calc Drug Dose 15.3 ml/min Estimated GFR () 15.7 Estimated GFR (Non- 13.6 BUN/Creatinine Ratio 7.3 (10-20) Random Glucose 113 mg/dl (70-99) Calcium Level 8.8 mg/dl (8.5-10.1) Test 03/21/17 07:03 Bedside Glucose 116 mg/dl (70-99) Assessment & Plan Assessment * 82 yo M admitted with severe hyperkalemia. Now with 2/2 blood cultures with Strep species. Possible sources include HD access site vs. dental caries. * On vancomycin and Zosyn * WBC improving and wnl today. No fever since 03/19. * Sequence of HD sessions, vancomcyin doses, and vancomycin levels * 03/19 1844: completed 4 hr HD * 03/19 2347: vancomycin 1500 mg IV x1 (charted as admin) * 03/20 0530: vancomycin level <0.8 mcg/mL * 03/20 1005: repeat vancomycin level <0.8 mcg/mL * 03/20 1054: vancomycin 500 mg IV x1 * 03/20 1234: additional vancomycin 1250 mg IV x1 (total of 1750 mg in AM) * 03/20 1515: completed 4 hr HD * 03/21 0618: vancomycin level 15.6 mcg/mL * Patient was dialyzed yesterday per his normal outpatient schedule ([facility]). Do not anticipate further HD today. Vancomycin * See previous note 03/20 for discussion of two levels on 03/20 undetectable * Goal pre-HD levels 15-20 mcg/mL * Level of 15.6 mcg/mL this AM therapeutic, but at lower end of range * Anticipate some clearance of vancomycin by patient's kidneys (despite HD patient) as he is generating urine (400 mL yesterday) * Will give small dose today to ensure levels do not become subtherapeutic in a patient with 2/2 positive blood cultures Plan * Vancomycin 500 mg IV x1 * Random level tomorrow AM Pharmacy will continue to follow and will adjust dose/frequency as necessary. Thank you
[2017-03-21] MEDS: TIMOLOL MALEATE 0.5% OP SOLN 5 ML BTL OPB SCH ×2 (09:07→21:19)
[2017-03-21] MEDS ORDERED: VANCOMYCIN INJ 500 MG in SODIUM CHLORIDE 0.9% 100ML 100 ML IV ONE (10:00)
--- NOTE | 2017-03-21 10:26 | Nephrology Progress Note ---
Nephrology Progress Note Date of Service Mar 21, 2017. Chief Complaint F/U for end-stage renal disease, volume overload and hyperkalemia. Subjective Mr. Morrow was seen and examined in his room this morning. He denies any symptoms, overall feels well and wondering whether he can be discharged. Had dialysis yesterday, had 2 liters UF, currently blood pressure, volume status electrolyte acceptable. Review of Systems A complete review of systems was performed. Pertinent positives are noted above. All other systems are negative. Vital Signs Last 8 Hrs Date Time Temp Pulse Resp B/P (MAP) Pulse Ox O2 Delivery O2 Flow Rate FiO2 03/21/17 08:24 36.9 81 18 112/63 (79) 97 03/21/17 08:00 95 Room Air 2.0 03/21/17 04:42 36.8 70 19 121/67 (85) 95 Room Air Last Recorded Weight Weight (Kilograms): 80.500 Physical Exam GENERAL: Elderly male , AAA x 3, chronically ill-appearing, not in any distress. NECK: Supple, no JVD. RESPIRATORY: Normal breathing efforts, no accessory muscle use, clear to auscultation bilaterally, no wheezes or rales. CARDIOVASCULAR: S1, S2 normal, rate rhythm regular. EXTREMITY: No lower extremity edema NEURO: speech fluent. PSYCHIATRY: Normal mood and judgment Family History Breast cancer Hyperlipidemia Hypertension Myocardial infarction Social History Smokeless Tobacco Use: No Alcohol Use: none Drug Use: none Marital Status: Housing Status: detention ([facility]) Occupation: retired Laboratory Results Past 24 Hours 03/21/17 06:18 Red Blood Count 3.36, Mean Corpuscular Volume 112.8, Mean Corpuscular Hemoglobin 36.6, Mean Corpuscular Hemoglobin Concent 32.5, Mean Platelet Volume 11.0, Neutrophils (%) (Auto) 71.2, Lymphocytes (%) (Auto) 16.0, Monocytes (%) ( Auto) 11.2, Eosinophils (%) (Auto) 1.1, Basophils (%) (Auto) 0.2, Neutrophils # (Auto) 7.08, Lymphocytes # (Auto) 1.59, Monocytes # (Auto) 1.11, Eosinophils # ( Auto) 0.11, Basophils # (Auto) 0.02 03/21/17 06:18 Test 03/20/17 10:51 03/20/17 16:40 03/20/17 18:37 03/20/17 21:06 Bedside Glucose 171 mg/dl (70-99) 108 mg/dl (70-99) 120 mg/dl (70-99) Magnesium Level 2.0 mg/dl (1.8-2.4) Test 03/21/17 06:18 03/21/17 07:03 White Blood Count 9.94 K/uL (4.8-10.8) Red Blood Count 3.36 M/uL (4.7-6.1) Hemoglobin 12.3 g/dL (14.0-18.0) Hematocrit 37.9 % (42-52) Mean Corpuscular Volume 112.8 fL (80-100) Mean Corpuscular Hemoglobin 36.6 pg (25-34) Mean Corpuscular Hemoglobin Concent 32.5 g/dl (32-36) Platelet Count 157 K/uL (130-400) Mean Platelet Volume 11.0 fL (7.4-10.4) Neutrophils (%) (Auto) 71.2 % Lymphocytes (%) (Auto) 16.0 % Monocytes (%) (Auto) 11.2 % Eosinophils (%) (Auto) 1.1 % Basophils (%) (Auto) 0.2 % Neutrophils # (Auto) 7.08 K/uL (1.4-6.5) Lymphocytes # (Auto) 1.59 K/uL (1.2-3.4) Monocytes # (Auto) 1.11 K/uL (0.11-0.59) Eosinophils # (Auto) 0.11 K/uL (0-0.5) Basophils # (Auto) 0.02 K/uL (0-0.2) RDW Standard Deviation 62.5 fL (36.4-46.3) RDW Coefficient of Variation 15.2 % (11.5-14.5) Immature Granulocyte % (Auto) 0.3 % Immature Granulocyte # (Auto) 0.03 K/uL (0.00-0.02) Nucleated RBC Absolute Count (auto) 0.03 K/uL (0-0) Nucleated Red Blood Cells % 0.3 % Macrocytosis PRESENT Prothrombin Time 17.8 SECONDS (9.0-12.0) Prothromb Time International Ratio 1.6 (0.9-1.1) Anion Gap 9.0 mmol/L (3-11) Est Creatinine Clear Calc Drug Dose 15.3 ml/min Estimated GFR () 15.7 Estimated GFR (Non- 13.6 BUN/Creatinine Ratio 7.3 (10-20) Calcium Level 8.8 mg/dl (8.5-10.1) Random Vancomycin Level 15.6 mcg/ml Bedside Glucose 116 mg/dl (70-99) Allergies Coded Allergies: No Known Allergies (Unverified , 03/18/17) Medications Current Inpatient Medications Medications (Trade) Dose Ordered Sig/Summer Route Start Time Stop Time Status Last Admin Dose Admin Acetaminophen (Tylenol Tab) 650 mg Q4H PRN PO 03/19/17 13:00 04/18/17 12:59 Al Hydrox/Mg Hydrox/Simethicone (Maalox Max Susp) 15 ml Q4H PRN PO 03/19/17 13:00 04/18/17 12:59 Magnesium Hydroxide (Milk Of Magnesia Susp) 30 ml Q12H PRN PO 03/19/17 13:00 04/18/17 12:59 Ondansetron HCl (Zofran Inj) 4 mg Q6H PRN IV 03/19/17 13:00 04/18/17 12:59 Insulin Aspart (novoLOG ASPART) SLIDING SCALE If C... ACHS SC 03/19/17 16:00 04/18/17 15:59 03/20/17 08:26 5 UNITS Glucose (Glucose 40% Gel) 15-30 GRAMS 15 GRAMS... UD PRN PO 03/19/17 13:00 04/18/17 12:59 Glucose (Glucose Chew Tab) 4-8 Tablets 4 Tabl... UD PRN PO 03/19/17 13:00 04/18/17 12:59 Dextrose (Dextrose 50% 50ML Syringe) 25-50ML OF 50% DW IV FOR... UD PRN IV 03/19/17 13:00 04/18/17 12:59 Glucagon (Glucagon Inj) 1 mg UD PRN SQ 03/19/17 13:00 04/18/17 12:59 Aspirin (Ecotrin Tab) 81 mg QAM PO 03/20/17 09:00 04/19/17 08:59 03/21/17 08:07 81 MG Atorvastatin Calcium (Lipitor Tab) 80 mg HS PO 03/19/17 21:00 04/18/17 20:59 03/20/17 22:04 80 MG Calcium Carbonate (Tums Chew Tab) 500 mg TID PO 03/19/17 14:00 04/18/17 13:59 03/21/17 08:08 500 MG Carvedilol (Coreg Tab) 6.25 mg BID PO 03/19/17 21:00 04/18/17 20:59 03/21/17 08:08 6.25 MG Levothyroxine Sodium (Synthroid Tab) 175 mcg DAILYBB PO 03/20/17 06:00 04/19/17 05:59 03/21/17 05:24 175 MCG Multivitamins/ Minerals (Multivitamin W/ Minerals Tab) 1 tab QAM PO 03/20/17 09:00 04/19/17 08:59 03/21/17 08:08 1 TAB Enteral Nutritional Formula (Boost Plus Vanilla) 1 can QDB PO 03/20/17 07:15 04/19/17 07:14 03/21/17 08:07 1 CAN Pantoprazole Sodium (Protonix Tab) 40 mg QPM PO 03/19/17 21:00 04/18/17 20:59 03/20/17 22:03 40 MG Timolol Maleate (Timoptic 0.5% Oph Soln) 1 drops BID OPB 03/19/17 21:00 04/18/17 20:59 03/21/17 09:07 1 DROPS Travoprost (Travatan Z) 1 drops HS OPB 03/19/17 21:00 04/18/17 20:59 03/20/17 22:02 1 DROPS Warfarin Sodium (Coumadin Tab) 1 mg DAILY@1600 PO 03/19/17 16:00 04/18/17 15:59 03/20/17 16:31 1 MG Heparin Sodium (Porcine) (Heparin Sq 5000 Unit/0.5ml) 5,000 unit Q12 SQ 03/19/17 21:00 04/18/17 20:59 03/21/17 08:16 5,000 UNIT Acetaminophen 100 ml @ 400 mls/hr Q8H PRN IV 03/19/17 20:30 04/18/17 20:29 Piperacillin Sod/ Tazobactam Sod 3.375 gm/Dextrose 115 ml @ 28.75 mls/ hr Q12H IV 03/20/17 06:00 03/22/17 05:59 03/21/17 05:23 28.75 MLS/HR Vancomycin HCl (Consult) 1 ea UD PRN N/A 03/19/17 23:15 04/18/17 23:14 Piperacillin Sod/ Tazobactam Sod (Consult) 1 ea UD PRN N/A 03/19/17 23:15 04/18/17 23:14 Vancomycin HCl 500 mg/Sodium Chloride 110 ml @ 110 mls/hr TODAY@1000 ONCE IV 03/21/17 10:00 03/21/17 10:59 Impression (1) End stage renal disease (2) Anemia (3) Hypertension (4) Altered mental status (5) Hyperkalemia . 82-year-old gentlemen with end-stage renal disease on hemodialysis admitted to the hospital with change in mental status and possible head trauma from unwitnessed fall. Vital sign stable on admission CT scan of head was otherwise unremarkable. Electrolyte acceptable. Chest x-ray showed increase therapy pulmonary condition and lab showed hyperkalemia with potassium 6.4. Last dialysis was on Wednesday. Currently he is awake, alert but sleepy and seems somewhat confused. Denies any symptoms. Recommendations -- had dialysis yesterday as his regular schedule with 2 K bath, had 2 liters UF , currently blood pressure, volume status electrolyte acceptable --blood culture growing Staph aureus, pending sensitivity, continued on vancomycin, ? Discontinue Zosyn --if discharge planning vancomycin can be given after dialysis however needs to be scheduled prior to discharge --avoid further IV fluid --continue on Nephrocaps will give phosphate binder with meal --Epogen as needed for hemoglobin less than 10 --continue on renal diet Will follow
[2017-03-21] MEDS ORDERED: PERFLUTREN LIPID MICROSPHERE (DEFINITY) IV ONE (10:38)
--- NOTE | 2017-03-21 11:31 | ECHOCARDIOGRAM REPORT ---
*NOTICE TO RECEIVING DEMOCRAT AGENCY This information is strictly Confidential and protected under [place] law. [place] law prohibits you from making any further disclosure of this information unless further disclosure is expressly permitted by the written consent of the person to whom it pertains or is authorized by law. A general authorization for the release of medical or other information is not sufficient for this purpose. Hospital accepts no responsibility if the information is made available to any other person, INCLUDING THE PATIENT. Interpretation Summary * Name: NANNETTE STOUT Study Date: 03/21/2017 10:10 AM BP: 112/57 mmHg * Patient Location: [facility] HR: 64 * : 1935 (M/d/yyyy) Gender: Male Height: 71 in * Age: 82 yrs Ethnicity: CA Weight: 178 lb * Performed By: Josie Steve RCS * * Reason For Study: ENDOCARDITIS / 2/2 POSITIVE BLOOD CULTURES * BSA: 2.0 m2 * -- Conclusions -- * 1. Moderately dilated LV with mild concentric LVH. * 2. Severe global LV dysfunction. EF 20-25%. * 3. Normal RV size with moderate RV dysfunction. * 4. Mild aortic regurgitation. * 5. No valvular vegetations noted. * 6. Normal estimated RA and PA pressures. * 7. Compared with prior study on 05/05/2016: No significant changes. Procedure Details * A complete two-dimensional transthoracic echocardiogram was performed (2D, M-mode, Doppler and color flow Doppler). * The study was technically difficult. * A contrast injection of Definity was performed to improve assessment of LV function. * Contrast was injected into an intravenous site in the right arm. * One vial of Definity ultrasound contrast was diluted in normal saline to a total volume of 10 ml. A total of '2' ml of solution was administered during imaging. * Lot # [id number] of Definity utilized for procedure. * Expiration date APR 12. * The attending nurse who injected the contrast agent was ARYAN SHELDON, RN. Left Ventricle * The left ventricle is moderately dilated. * There is mild concentric left ventricular hypertrophy. * Ejection Fraction = 20-25%. * There is severe global hypokinesis of the left ventricle. * Septal motion is consistent with conduction abnormality. Right Ventricle * There is a pacemaker lead in the right ventricle. * The right ventricle is grossly normal size. * The right ventricular systolic function is moderately reduced. Atria * The left atrium is severely dilated. * The right atrium is moderately dilated. * No ASD detected; PFO is not assessed. Mitral Valve * The mitral valve is grossly normal. * There is no vegetation seen on the mitral valve. * There is no mitral valve stenosis. * There is trace mitral regurgitation. Tricuspid Valve * The tricuspid valve is not well visualized, but is grossly normal. * There is no tricuspid valve vegetation. * There is trace tricuspid regurgitation. Aortic Valve * The aortic valve opens well. * The aortic valve is trileaflet. * There is no aortic valvular vegetation. * No hemodynamically significant valvular aortic stenosis. * Mild aortic regurgitation. Pulmonic Valve * The pulmonary valve is inadequately visualized, but the Doppler data is adequate for interpretation. * Pulmonic stenosis is absent. * Trace pulmonic valvular regurgitation. Great Vessels * The aortic root and proximal ascending aorta are normal sized. Pericardium/Pleural * There is no pericardial effusion. Great Vessels * Normal inferior vena cava size and collapsability with sniff indicates a normal right atrial pressure of 3 mmHg * There is no evidence of pulmonary hypertension. The PA systolic pressure is less than 36 mmHg. Left Ventricular Diastolic Function * Diastolic dysfunction. MMode 2D Measurements and Calculations IVSd 1.2 cm IVSs 1.4 cm LVIDd 5.9 cm LVIDs 5.5 cm LVPWd 1.4 cm LVPWs 1.5 cm IVS/LVPW 0.81 FS 7.0 % EDV(Teich) 174.6 ml ESV(Teich) 147.8 ml EF(Teich) 15.3 % EDV(cubed) 207.5 ml ESV(cubed) 167.0 ml EF(cubed) 19.5 % % IVS thick 19.3 % % LVPW thick 6.9 % LV mass(C)d 344.3 grams LV mass(C)dI 171.5 grams/m\S\2 LV mass(C)s 361.9 grams LV mass(C)sI 180.3 grams/m\S\2 SV(Teich) 26.8 ml SI(Teich) 13.3 ml/m\S\2 SV(cubed) 40.6 ml SI(cubed) 20.2 ml/m\S\2 Ao root diam 3.9 cm Ao root area 12.1 cm\S\2 ACS 1.8 cm LA dimension 4.1 cm LA/Ao 1.0 LVOT diam 2.1 cm LVOT area 3.6 cm\S\2 LVAd ap4 44.4 cm\S\2 LVLd ap4 8.1 cm EDV(MOD-sp4) 204.3 ml EDV(sp4-el) 207.4 ml LVAs ap4 35.6 cm\S\2 LVLs ap4 7.7 cm ESV(MOD-sp4) 139.4 ml ESV(sp4-el) 139.9 ml EF(MOD-sp4) 31.8 % EF(sp4-el) 32.5 % LVAd ap2 47.4 cm\S\2 LVLd ap2 8.5 cm EDV(MOD-sp2) 221.9 ml EDV(sp2-el) 223.7 ml LVAs ap2 38.4 cm\S\2 LVLs ap2 8.0 cm ESV(MOD-sp2) 156.1 ml ESV(sp2-el) 157.0 ml EF(MOD-sp2) 29.7 % EF(sp2-el) 29.8 % LVLd %diff 5.4 % EDV(MOD-bp) 218.5 ml LVLs %diff 3.5 % ESV(MOD-bp) 146.0 ml EF(MOD-bp) 33.2 % SV(MOD-sp4) 64.9 ml SI(MOD-sp4) 32.4 ml/m\S\2 SV(MOD-sp2) 65.8 ml SI(MOD-sp2) 32.8 ml/m\S\2 SV(MOD-bp) 72.5 ml SI(MOD-bp) 36.1 ml/m\S\2 SV(sp4-el) 67.5 ml SI(sp4-el) 33.6 ml/m\S\2 SV(sp2-el) 66.7 ml SI(sp2-el) 33.2 ml/m\S\2 Doppler Measurements and Calculations MV E max ford 93.3 cm/sec MV P1/2t max ford 101.8 cm/sec MV P1/2t 56.6 msec MVA(P1/2t) 3.9 cm\S\2 MV dec slope 527.3 cm/sec\S\2 MV dec time 0.15 sec Ao V2 max 104.4 cm/sec Ao max PG 4.4 mmHg Ao max PG (full) 2.7 mmHg FREDDY(V,A) 2.2 cm\S\2 FREDDY(V,D) 2.2 cm\S\2 LV V1 max PG 1.7 mmHg LV V1 max 64.9 cm/sec PA V2 max 75.1 cm/sec PA max PG 2.3 mmHg PI max ford 163.9 cm/sec PI max PG 10.7 mmHg PI dec slope 126.4 cm/sec\S\2 PI P1/2t 379.9 msec TR max ford 231.2 cm/sec
--- NOTE | 2017-03-21 11:43 | Cardiology Follow-Up ---
Subjective Date of Service: Mar 21, 2017. Pt evaluation today including: conversation w/ patient, conversation w/ family , physical exam, lab review, review of studies, review of inpatient medication list History of Present Illness This is an 82-year-old gentleman who we had been following for his cardiovascular conditions, however the last time I saw him was 12/02/2015 and he may have been lost to follow-up subsequently. When asked if he see somebody else for cardiology care he doesn't know what I'm talking about. It is possible he hasn't seen anyone. He has a history of presumed ischemic cardiomyopathy (based on stress testing, he has refused catheterization) as well as now permanent atrial fibrillation ( we had anticipated cardioversion following device implantation but he has refused). He had bradycardia and nonsustained ventricular tachycardia as well as meeting indications for primary prevention of sudden cardiac and therefore had a dual-chamber ICD implanted on August 22, 2009. That device reached [place] and was replaced on 08/27/2015, since he was in permanent atrial fibrillation it was replaced with a single-chamber ICD. As of November 2015 his device had been working well and he was doing well. He now is admitted with a change in mental status and a recent fall. He is supposed to be on warfarin for his atrial fibrillation as far as I know, however his INR was normal on admission. His troponin was observed to be elevated to maximum 2.1 after admission. He has been found to have positive blood cultures, but today he feels well and has no cardiovascular complaints. He is getting ready to eat lunch and his is at his bedside. Social History Smoking Status: Former Smoker (quit about 45 years ago) History of Alcohol Use: No Review of Systems Respiratory: No cough, No sputum, No shortness of breath, No dyspnea on exertion Cardiac: No chest pain, No edema Although the patient is talkative I don't know that we can rely on his review of systems Medications Cardiovascular: Item Value Date Time Aspirin 81 mg 03/20/17 0900 (Ecotrin Tab) QAM/PO 03/21/17 08 Atorvastatin 80 mg 03/19/17 2100 Calcium HS/PO 03/20/17 220 (Lipitor Tab) Carvedilol 6.25 mg 03/19/17 2100 (Coreg Tab) BID/PO 03/21/17 0808 Heparin Sodium 5,000 unit 03/19/17 2100 (Porcine) Q12/SQ 03/21/17 0816 (Heparin Sq 5000 Unit/0.5ml) Warfarin Sodium 1 mg 03/19/17 1600 (Coumadin Tab) DAILY@1600/PO 03/20/17 1631 Objective Vital Signs Past 12 Hours Date Time Temp Pulse Resp B/P (MAP) Pulse Ox O2 Delivery O2 Flow Rate FiO2 03/21/17 08:24 36.9 81 18 112/63 (79) 97 03/21/17 08:00 95 Room Air 2.0 03/21/17 04:42 36.8 70 19 121/67 (85) 95 Room Air 03/20/17 23:55 36.8 66 18 118/62 (80) 95 Room Air Last Recorded Weight-Kilograms: 80.500 Physical Exam Constitutional: General Apperance: heathly-appearing Level of Distress: NAD Lungs: Respiratory effort: no dyspnea, good air movement Auscultation: breath sounds normal, no wheezing Cardiovascular: Heart Auscultation: no rubs, no gallops, II/ WSM, irregular rate rhythm Peripheral Pulses: Bruits: none appreciated Extremities: no edema Data Laboratory Results: Last 24 Hours Test 03/20/17 16:40 03/20/17 18:37 03/20/17 21:06 03/21/17 06:18 Bedside Glucose 108 mg/dl 120 mg/dl Magnesium Level 2.0 mg/dl White Blood Count 9.94 K/uL Red Blood Count 3.36 M/uL Hemoglobin 12.3 g/dL Hematocrit 37.9 % Mean Corpuscular Volume 112.8 fL Mean Corpuscular Hemoglobin 36.6 pg Mean Corpuscular Hemoglobin Concent 32.5 g/dl Platelet Count 157 K/uL Mean Platelet Volume 11.0 fL Neutrophils (%) (Auto) 71.2 % Lymphocytes (%) (Auto) 16.0 % Monocytes (%) (Auto) 11.2 % Eosinophils (%) (Auto) 1.1 % Basophils (%) (Auto) 0.2 % Neutrophils # (Auto) 7.08 K/uL Lymphocytes # (Auto) 1.59 K/uL Monocytes # (Auto) 1.11 K/uL Eosinophils # (Auto) 0.11 K/uL Basophils # (Auto) 0.02 K/uL RDW Standard Deviation 62.5 fL RDW Coefficient of Variation 15.2 % Immature Granulocyte % (Auto) 0.3 % Immature Granulocyte # (Auto) 0.03 K/uL Nucleated RBC Absolute Count (auto) 0.03 K/uL Nucleated Red Blood Cells % 0.3 % Macrocytosis PRESENT Prothrombin Time 17.8 SECONDS Prothromb Time International Ratio 1.6 Sodium Level 134 mmol/L Potassium Level 4.3 mmol/L Chloride Level 98 mmol/L Carbon Dioxide Level 28 mmol/L Anion Gap 9.0 mmol/L Blood Urea Nitrogen 28 mg/dl Creatinine 3.83 mg/dl Est Creatinine Clear Calc Drug Dose 15.3 ml/min Estimated GFR () 15.7 Estimated GFR (Non- 13.6 BUN/Creatinine Ratio 7.3 Random Glucose 113 mg/dl Calcium Level 8.8 mg/dl Random Vancomycin Level 15.6 mcg/ml Test 03/21/17 07:03 03/21/17 11:14 Bedside Glucose 116 mg/dl EKG: Atrial fibrillation with a controlled heart rate, 1 PVC followed by one paced beat Telemetry reviewed: Atrial fibrillation with a controlled heart rate ICD evaluation: Functioning well, no arrhythmias, pacing appropriately. Excellent battery life. Assessment and Plan #1. Positive troponin: He does have an elevated troponin, the cause is not clear. We can't read his electrocardiogram due to baseline abnormalities and intermittent pacing. I don't think this represents an acute myocardial infarction but he doesn't have any clear reason to have demand ischemia, renal failure will elevate troponin to some extent however. He has refused catheterization in the past and I don't think it is indicated currently. I would not alter his therapy based on these findings. #2. Atrial fibrillation: He has permanent atrial fibrillation, the rate appears to be well-controlled and he does intermittently pace with his ICD. He should be on an anticoagulant, I believe he is supposed to be on warfarin but his INR was normal on admission. I'm not sure this is the best drug for him, here at least we can make sure he gets it. #3. Cardiomyopathy: He does not appear to have significant congestive heart failure based on exam or symptoms today, however his chest x-ray on admission and his BNP suggested fluid retention. He is being dialyzed which should correct that issue. I don't have recent studies for his left ventricular function, an echocardiogram is ordered. #4. ICD: ICD evaluation this morning shows normal function. #5. Bacteremia: Bacteremia is always worrisome with his ICD, hopefully it does not represent lead infection. I agree with echocardiography, he may want to consider SHAN but I will not arrange that as yet. Thank you for allowing me to participate in his care.
--- NOTE | 2017-03-21 13:51 | Progress Note ---
Subjective Date of Service: Mar 21, 2017. Subjective pt remains with some memory impairment, updated at bedside. offers little concrete complaints Problem List Medical Problems: (1) Altered mental status Status: Chronic (2) Cellulitis of knee, right Status: Acute (3) Chronic kidney disease Status: Acute (4) Closed fracture of right proximal humerus Status: Acute (5) Dehydration Status: Acute (6) Dysphagia Status: Acute (7) Dysphasia Status: Acute (8) Elevated troponin Status: Acute (9) ESRD (end stage renal disease) Status: Acute (10) Fall Status: Acute (11) Fall Status: Acute (12) GI bleed Status: Acute (13) Hemorrhage of arteriovenous fistula Status: Acute (14) Hyperkalemia Status: Acute (15) Hypotension Status: Acute (16) Right leg pain Status: Acute (17) Shoulder pain, right Status: Acute (18) Supratherapeutic INR Status: Acute (19) Supratherapeutic INR Status: Acute Review of Systems Constitutional: + weakness, + fatigue, No fever, No chills Respiratory: No cough, No shortness of breath Cardiac: + edema (trace), No chest pain Abdomen: No pain, No nausea, No vomiting, No diarrhea Neurologic: + memory loss, + weakness Objective Vital Signs Date Time Temp Pulse Resp B/P (MAP) Pulse Ox O2 Delivery O2 Flow Rate FiO2 03/21/17 12:00 95 Room Air 2.0 03/21/17 11:59 36.8 74 16 122/64 (83) 97 03/21/17 08:24 36.9 81 18 112/63 (79) 97 03/21/17 08:00 95 Room Air 2.0 03/21/17 04:42 36.8 70 19 121/67 (85) 95 Room Air 03/20/17 23:55 36.8 66 18 118/62 (80) 95 Room Air 03/20/17 20:01 36.3 58 20 96/59 (71) 98 Room Air 03/20/17 16:00 37.0 63 18 96/57 (70) 90 Room Air 03/20/17 15:24 36.6 75 123/61 (81) 03/20/17 15:20 Room Air 03/20/17 15:15 72 108/59 03/20/17 15:00 61 111/64 03/20/17 14:45 57 108/59 03/20/17 14:30 82 121/64 03/20/17 14:15 81 118/61 03/20/17 14:04 81 116/70 03/20/17 13:45 63 121/58 Physical Exam General Appearance: WD/WN, + moderate distress Eyes: PERRL, EOMI ENT: + pertinent finding (had poor dentition) Respiratory/Chest: + decreased breath sounds, + rhonchi Cardiovascular: regular rate, rhythm, + systolic murmur Abdomen: normal bowel sounds, non tender, soft Extremities: no calf tenderness, + pedal edema Neurologic/Psychiatric: alert, + disoriented Laboratory Results Last 24 Hours Test 03/20/17 16:40 03/20/17 18:37 03/20/17 21:06 03/21/17 06:18 Bedside Glucose 108 mg/dl 120 mg/dl Magnesium Level 2.0 mg/dl White Blood Count 9.94 K/uL Red Blood Count 3.36 M/uL Hemoglobin 12.3 g/dL Hematocrit 37.9 % Mean Corpuscular Volume 112.8 fL Mean Corpuscular Hemoglobin 36.6 pg Mean Corpuscular Hemoglobin Concent 32.5 g/dl Platelet Count 157 K/uL Mean Platelet Volume 11.0 fL Neutrophils (%) (Auto) 71.2 % Lymphocytes (%) (Auto) 16.0 % Monocytes (%) (Auto) 11.2 % Eosinophils (%) (Auto) 1.1 % Basophils (%) (Auto) 0.2 % Neutrophils # (Auto) 7.08 K/uL Lymphocytes # (Auto) 1.59 K/uL Monocytes # (Auto) 1.11 K/uL Eosinophils # (Auto) 0.11 K/uL Basophils # (Auto) 0.02 K/uL RDW Standard Deviation 62.5 fL RDW Coefficient of Variation 15.2 % Immature Granulocyte % (Auto) 0.3 % Immature Granulocyte # (Auto) 0.03 K/uL Nucleated RBC Absolute Count (auto) 0.03 K/uL Nucleated Red Blood Cells % 0.3 % Macrocytosis PRESENT Prothrombin Time 17.8 SECONDS Prothromb Time International Ratio 1.6 Sodium Level 134 mmol/L Potassium Level 4.3 mmol/L Chloride Level 98 mmol/L Carbon Dioxide Level 28 mmol/L Anion Gap 9.0 mmol/L Blood Urea Nitrogen 28 mg/dl Creatinine 3.83 mg/dl Est Creatinine Clear Calc Drug Dose 15.3 ml/min Estimated GFR () 15.7 Estimated GFR (Non- 13.6 BUN/Creatinine Ratio 7.3 Random Glucose 113 mg/dl Calcium Level 8.8 mg/dl Random Vancomycin Level 15.6 mcg/ml Test 03/21/17 07:03 03/21/17 11:14 Bedside Glucose 116 mg/dl 217 mg/dl Assessment and Plan 82 y/o male presents with acute encephalopathy and hyperkalemia, history of ESRD on HD, a-fib, ischemic cardiomyopathy, dual-chamber AICD, CAD, carotid artery stenosis, HTN, HLD, chronic systolic CHF, DM II, hypothyroidism, gout and glaucoma Hyperkalemia, ESRD on HD resolved after initial treatment and urgent dialysis, nephrology to manage also with dialysis Encephalopathy, metabolic, 2 of 2 blood cultures shows gram positives concern for strep, consider access or dental a source, started on vanco and zosyn, pending echo for endocarditis, will have ID weigh in once we find species and sensitivity Elevated troponin chronically mildly elevated due to renal failure, has trended downward and no clinical symptoms Subtherapeutic -INR low on admission -Pt typically takes warfarin 1 mg PO qd, now 1.6 follow with afib Recent fall--daughter states pt had been complaining of right shoulder pain x- ray showed no acute findings, pain control A-fib, ischemic cardiomyopathy, AICD, CAD, HTN, HLD -Continue ASA, Coreg 6.25 mg PO BID, Lipitor 80 mg PO qd Chronic systolic/diastolic HF--denies any SOB, -CXR with interstitial pulmonary edema, BNP elevated DM II--last HgbA1c 2015 -Insulin sliding scale once potassium stable -Check BSGs q ac and qhs Hypothyroidism clinically stable Synthroid 175 mcg PO qd Gout asymptomatic allopurinol Glaucoma timolol and travatan drops Left lower extremity wounds-followed by wound care nurse DVT prophylaxis-coumadin Code Status -Level I, FULL RESUSCITATION STATUS
[2017-03-21] MEDS: WARFARIN SOD 1 MG TAB PO SCH (16:14)
[2017-03-21] MEDS: TRAVOPROST Z 0.004% OPH SOLN 2.5 ML BTL OPB SCH (21:20)
[2017-03-21] MEDS: PANTOprazole SOD 40 MG TAB PO SCH (21:20)
[2017-03-21] MEDS: ATORVASTATIN 20 MG TAB PO SCH (21:20)
--- NOTE | 2017-03-21 23:37 | Progress Note ---
Post ICU Progress Note Date & Time Mar 21, 2017 at 23:17 Vital Signs Vital Signs Past 12 Hours Date Time Temp Pulse Resp B/P (MAP) Pulse Ox O2 Delivery O2 Flow Rate FiO2 03/21/17 19:57 36.6 60 18 107/52 (70) 93 Room Air 03/21/17 16:00 95 Room Air 2.0 03/21/17 15:36 36.4 70 18 116/67 (83) 96 Room Air 03/21/17 12:00 95 Room Air 2.0 03/21/17 11:59 36.8 74 16 122/64 (83) 97 Notes Mental Status: see Notes (Note completed via chart review) Nausea / Vomiting: adequately controlled Pain: adequately controlled Airway Patency, RR, SpO2: stable & adequate BP & HR: stable & adequate Alphonse Morrow is a 82yr old man who presented to the ICU for emergent hemodialysis. He was transferred to telemetry shortly after dialysis was completed that night. In the interim, pt had experienced a single fever and microbiology resulted with pansensitive enterococcus Faecalis. Pt is being treated appropriately and labs have started to normalize. Pt is being followed by cardiology for recent increase in troponin; which is currently thought to be due to chronic renal impairment. Cardiology will continue to follow secondary to chronic conditions as well as concern for defibrillator infection in the setting of bacteremia. Pt currently remains stable but is at risk for Sepsis; would recommend continued close observation and repeat blood cultures. Consider outpatient follow up within 1 to 2 weeks of discharge: Dr. Ramirez Repeat imaging needed: None Follow up cultures: Recommend repeat now and q48 until negative Reviewed progress notes, labs, and inpatient medication list Continue current management Additional recommendations: None Pt is currently stable; but will require close monitoring. Critical care will sign off at this time; however, please feel free to reconsult as needed. Consults & Procedures Consultants: Nephro Procedures: Emergent HD
[2017-03-22] VITALS (10 sets, daily range): BP systolic 95–139; BP diastolic 51–83; PULSE 54–95; TEMP 36.5–36.8; O2SAT 95–99
[2017-03-22] MEDS: LEVOTHYROXINE 175 MCG TAB PO SCH (06:24)
[2017-03-22 07:04] LABS: HEMATOCRIT 36.8 % (42-52); MEAN CELL VOLUME 111.5 fL (80-100); MEAN CORPUSCULAR HEMOGLOBIN 37.3 pg (25-34); MEAN CORPUSCULAR HGB CONC 33.4 g/dl (32-36); PLATELET COUNT 134 K/uL (130-400); WHITE BLOOD COUNT 8.51 K/uL (4.8-10.8)
[2017-03-22 07:09] LABS: INR 1.4 (0.9-1.1); PROTHROMBIN TIME (PATIENT) 15.4 SECONDS (9.0-12.0)
[2017-03-22 07:27] LABS: BASO % 0.4 %; BASO ABS # 0.03 K/uL (0-0.2); COMPLETE YES; IG% 0.6 %; LYMPH % 25.1 %; LYMPH ABS # 2.14 K/uL (1.2-3.4); MONO % 12.2 %; NEUT % 59.7 %
[2017-03-22 07:37] LABS: BUN/CREATININE RATIO 8.3 (10-20); CALCIUM 8.8 mg/dl (8.5-10.1); CREATININE 5.86 mg/dl (0.60-1.40); POTASSIUM 4.4 mmol/L (3.5-5.1)
[2017-03-22] MEDS: CEROVITE ADV FORMULA TAB PO SCH (08:12)
[2017-03-22] MEDS: ASPIRIN 81 MG ECTAB PO SCH (08:12)
[2017-03-22] MEDS: BOOST PLUS VANILLA PO SCH ×2 (08:13)
[2017-03-22] MEDS: CALCIUM CARBONATE 500 MG CHEWABLE PO SCH ×3 (08:13→21:16)
[2017-03-22] MEDS: CARVEDILOL 6.25 MG TAB PO SCH ×2 (08:13→21:16)
[2017-03-22] MEDS: TIMOLOL MALEATE 0.5% OP SOLN 5 ML BTL OPB SCH ×2 (08:13→21:16)
[2017-03-22] MEDS: INSULIN ASPART 100 UNITS/ML 3 ML PEN SC SCH ×4 (08:15→21:00)
[2017-03-22] MEDS: HEPARIN SOD 5000 UNIT/0.5 ML CARP SQ SCH ×2 (08:16→21:17)
--- NOTE | 2017-03-22 09:23 | Cardiology Follow-Up ---
Subjective Date of Service: Mar 22, 2017. Pt evaluation today including: conversation w/ patient, physical exam, lab review, review of studies, review of inpatient medication list History of Present Illness This is an 82-year-old gentleman who we had been following for his cardiovascular conditions, however the last time I saw him was 12/02/2015 and he may have been lost to follow-up subsequently. When asked if he see somebody else for cardiology care he doesn't know what I'm talking about. It is possible he hasn't seen anyone. He has a history of presumed ischemic cardiomyopathy (based on stress testing, he has refused catheterization) as well as now permanent atrial fibrillation ( we had anticipated cardioversion following device implantation but he has refused). He had bradycardia and nonsustained ventricular tachycardia as well as meeting indications for primary prevention of sudden cardiac and therefore had a dual-chamber ICD implanted on August 22, 2009. That device reached [facility] and was replaced on 08/27/2015, since he was in permanent atrial fibrillation it was replaced with a single-chamber ICD. As of November 2015 his device had been working well and he was doing well. He now is admitted with a change in mental status and a recent fall. He is supposed to be on warfarin for his atrial fibrillation as far as I know, however his INR was normal on admission. His troponin was observed to be elevated to maximum 2.1 after admission. He has been found to have positive blood cultures. Today he is in good spirits, has no complaints and seems more oriented and conversational. Social History Smoking Status: Former Smoker (quit about 45 years ago) History of Alcohol Use: No Review of Systems Respiratory: No cough, No shortness of breath Cardiac: + edema (trace), No chest pain Medications Cardiovascular: Item Value Date Time Aspirin 81 mg 03/20/17 0900 (Ecotrin Tab) QAM/PO 03/22/17 0812 Atorvastatin 80 mg 03/19/17 2100 Calcium HS/PO 03/21/17 2120 (Lipitor Tab) Carvedilol 6.25 mg 03/19/17 2100 (Coreg Tab) BID/PO 03/22/17 0813 Warfarin Sodium 1 mg 03/19/17 1600 (Coumadin Tab) DAILY@1600/PO 03/21/17 1614 Objective Vital Signs Past 12 Hours Date Time Temp Pulse Resp B/P (MAP) Pulse Ox O2 Delivery O2 Flow Rate FiO2 03/22/17 04:05 36.7 54 18 117/71 (86) 98 Room Air 03/22/17 04:01 Room Air 03/22/17 00:33 36.7 60 18 95/51 (66) 98 Room Air 03/22/17 00:02 Room Air Last Recorded Weight-Kilograms: 81.300 Physical Exam Constitutional: General Apperance: heathly-appearing Level of Distress: NAD Lungs: Respiratory effort: no dyspnea, good air movement Auscultation: breath sounds normal, no wheezing Cardiovascular: Heart Auscultation: no rubs, no gallops, II/ WSM, irregular rate rhythm Peripheral Pulses: Bruits: none appreciated Extremities: no edema Data Laboratory Results: Last 24 Hours Test 03/21/17 11:14 03/21/17 16:31 03/21/17 21:04 03/22/17 06:33 Bedside Glucose 217 mg/dl 148 mg/dl 165 mg/dl 106 mg/dl Test 03/22/17 06:46 White Blood Count 8.51 K/uL Red Blood Count 3.30 M/uL Hemoglobin 12.3 g/dL Hematocrit 36.8 % Mean Corpuscular Volume 111.5 fL Mean Corpuscular Hemoglobin 37.3 pg Mean Corpuscular Hemoglobin Concent 33.4 g/dl Platelet Count 134 K/uL Neutrophils (%) (Auto) 59.7 % Lymphocytes (%) (Auto) 25.1 % Monocytes (%) (Auto) 12.2 % Eosinophils (%) (Auto) 2.0 % Basophils (%) (Auto) 0.4 % Neutrophils # (Auto) 5.08 K/uL Lymphocytes # (Auto) 2.14 K/uL Monocytes # (Auto) 1.04 K/uL Eosinophils # (Auto) 0.17 K/uL Basophils # (Auto) 0.03 K/uL Immature Granulocyte % (Auto) 0.6 % Immature Granulocyte # (Auto) 0.05 K/uL Macrocytosis PRESENT Prothrombin Time 15.4 SECONDS Prothromb Time International Ratio 1.4 Sodium Level 134 mmol/L Potassium Level 4.4 mmol/L Chloride Level 98 mmol/L Carbon Dioxide Level 26 mmol/L Anion Gap 10.0 mmol/L Blood Urea Nitrogen 49 mg/dl Creatinine 5.86 mg/dl Est Creatinine Clear Calc Drug Dose 10.0 ml/min Estimated GFR () 9.4 Estimated GFR (Non- 8.1 BUN/Creatinine Ratio 8.3 Random Glucose 101 mg/dl Calcium Level 8.8 mg/dl Random Vancomycin Level 19.6 mcg/ml Imaging: Echocardiography shows severe left ventricular dysfunction with an ejection fraction of 20-25 %. This is similar to April 2016. Telemetry reviewed: Remains in atrial fibrillation with a well-controlled heart rate. Assessment and Plan #1. Positive troponin: He does have elevated troponins in a descending pattern, the cause is not clear. We can't read his electrocardiogram due to baseline abnormalities and intermittent pacing. I don't think this represents an acute myocardial infarction but he doesn't have any clear reason to have demand ischemia, renal failure will elevate troponin to some extent however not usually with this pattern. He has refused catheterization in the past and I don' t think it is indicated currently. #2. Atrial fibrillation: He has permanent atrial fibrillation, the rate appears to be well-controlled and he does intermittently pace with his ICD. He should be on an anticoagulant, I believe he is supposed to be on warfarin but his INR was normal on admission. I'm not sure this is the best drug for him, here at least we can make sure he gets it. #3. Cardiomyopathy: He does not appear to have significant congestive heart failure based on exam or symptoms today, however his chest x-ray on admission and his BNP suggested fluid retention. He is being dialyzed which should correct that issue. His LVEF is severely reduced, but similar to earlier this year. He is not on ideal doses of medications (only low dose beta blockade) but I don't think he can tolerated higher doses with his low BP, but might be worth a try gradually. #4. ICD: ICD evaluation shows normal function. #5. Bacteremia: Bacteremia is always worrisome with his ICD, hopefully it does not represent lead infection. His transthoracic echo showed no vegetations. If it would alter his antibiotic therapy we can do a SHAN, if it would not alter the therapy I would not do it. Thank you for allowing me to participate in his care.
--- NOTE | 2017-03-22 11:22 | PROGRESS NOTE ---
DATE: 03/22/2017 SUBJECTIVE: Mr. Morrow says that he is feeling fine. He denies having any chest pain or shortness of breath. He denies having any chills or sweats. He says that his appetite is fair. He has had no nausea or vomiting. He has no abdominal pain. He does, however, have discomfort when he is moved about by the nursing staff. He admits that he is somewhat weak. He is confused. He does not recall exactly why he is here. However, he did recognize me as soon as I entered the room. OBJECTIVE: GENERAL: On physical exam at the current time, he appears as a chronically ill gentleman who is somewhat confused. He is aware that he is in the hospital. He is aware of where he lives that he needed to be reminded. VITAL SIGNS: He is afebrile (36.8), his blood pressure 131/68, his pulse 76 and slightly irregular, respiratory rate is 18, and his pulse ox 95-98% on room air. SKIN: Turgor is normal. He has marked changes of venous stasis dermatitis on his lower extremities. He has a significant degree of dry scaly skin also on his lower extremities and has muscle wasting of his lower extremities below the knee. He has scars from prior surgical procedures including his pacemaker defibrillator, which is palpable beneath the distal left clavicle. He has a left upper arm AV fistula with some swelling of the left arm. He has no palpable lymphadenopathy. HEAD: Grossly normal. EYES: Grossly normal. Extraocular movements are intact. Pupils react to light. The ocular fundi were not examined. EARS, NOSE, MOUTH AND THROAT: Unremarkable. Dentition is in fair to poor repair. His oral mucous membranes are moist. NECK: Supple. He has no jugular venous distension present at about 45 degrees. I hear no obvious carotid bruit. There is no thyromegaly. CHEST: Shows a few scattered rhonchi, but is otherwise clear. CARDIAC: Shows an irregular rhythm. S1 and S2 seem reasonably normal. He has a systolic murmur at the upper left sternal border and base. No diastolic murmurs are heard. ABDOMEN: Nontender. There is no organomegaly or mass. EXTREMITIES: Show the left arm AV fistula. He has the skin changes of his distal lower extremities as noted above. There are bilateral femoral murmurs. I cannot palpate pedal pulses. NEUROLOGIC: Shows no obvious lateralizing changes. He is confused as noted. PERTINENT LABORATORY WORK: From today shows a white count of 8510 with a normal differential. His hemoglobin is 12.3 with a hematocrit of 36.8. Red cell indices are macrocytic. His platelet count 134,000. His prothrombin time today is 15.4 with an INR of 1.4. Clinical chemistries from today show sodium 134 mmol/L, potassium 4.4 mmol/L, chloride is 98 mmol/L, and CO2 content 26 mmol/L. His BUN is 49, his creatinine 5.86. Blood sugar this morning was 101 and over the past 24 hours, it has varied from 101-217. Vancomycin random level morning was 19.6. He has had no recent imaging studies since admission. ASSESSMENT: Mr. Morrow certainly appears to have improved. He presented with change in mental status, chills and fevers. He had 2 positive blood cultures for an enterococcus faecalis. It has been treated with Zosyn and vancomycin. Currently, he has an adequate vancomycin trough level. Sensitivities, however, for the enterococcus include ampicillin to which the organism is sensitive. Certainly, I would question whether or not the vancomycin can be discontinued in favor of ampicillin. His INR is slightly subtherapeutic. However as an outpatient, this was followed on a regular basis and generally, he has been within the therapeutic range. I would have no hesitance to put him back on vancomycin. His risk of fall is somewhat greater than average. However, he spends most of his time in a wheelchair and does not ambulate on a regular basis. He has an elevated troponin here. However, it does not appear as if he has had an acute myocardial infarction. Certainly, the etiology of his troponin is unclear. His next regular dialysis day would be tomorrow. At the current time, I do not see any indication to move that up. RECOMMENDATIONS: The only possible change that I would recommend is consideration of switching him from vancomycin to ampicillin. Certainly, this would be a bit easier to manage as an outpatient when he is capable of returning to his senior living. For now unless we hear otherwise from the family, we will continue to maintain him on dialysis. Hopefully, his mental status will continue to improve. However, at the current time, he does seem confused to me. No other immediate recommendations other than to continue his usual medications.
--- NOTE | 2017-03-22 12:29 | Hospitalist Progress Note ---
Hospitalist Progress Note Date of Service Mar 22, 2017. (Jessica Connor .NICOLETTE) Subjective Pt evaluation today including: conversation w/ patient, conversation w/ family ( at bedside), physical exam, chart review, lab review, review of inpatient medication list Pain: None PO Intake: Tolerating PO diet Voiding: no voiding problems Patient denies any complaints. Per , he is still "hazy" and more confused than normal. The patient denies fevers, chills, sweats, chest pain, palpitations, claudication, cough, wheezing, shortness of breath, nausea, vomiting, abdominal pain, dysuria, hematuria, urinary retention, paralysis, weakness, numbness and tingling. Additional Comments: See HPI for pertinent positives and negatives. All other systems reviewed and negative. (Jessica Connor PA-C) Objective Vital Signs Date Time Temp Pulse Resp B/P (MAP) Pulse Ox O2 Delivery O2 Flow Rate FiO2 03/22/17 11:57 36.7 68 20 128/64 (85) 97 03/22/17 08:25 36.8 76 18 131/68 (89) 95 03/22/17 08:00 98 Room Air 03/22/17 04:05 36.7 54 18 117/71 (86) 98 Room Air 03/22/17 04:01 Room Air 03/22/17 00:33 36.7 60 18 95/51 (66) 98 Room Air 03/22/17 00:02 Room Air 03/21/17 20:00 Room Air 03/21/17 19:57 36.6 60 18 107/52 (70) 93 Room Air 03/21/17 16:00 95 Room Air 2.0 03/21/17 15:36 36.4 70 18 116/67 (83) 96 Room Air (Jessica Connor PA-C) Physical Exam Notes: General appearance: Well-developed, well-nourished, no apparent distress Head: Normocephalic, atraumatic Eyes: Normal inspection, PERRL, EOMI ENT: Normal ENT inspection, hearing grossly normal, pharynx normal Neck: Supple, no JVD, trachea midline Respiratory/Chest: Lungs clear to auscultation, normal breath sounds, no respiratory distress Cardiovascular: Regular rate & rhythm, no gallop, no murmur Abdomen/GI: Normal bowel sounds, nontender, soft Extremities/Musculoskeletal: +Chronic venous insufficiency changes. Wounds left heel and left lateral leg dressed. No calf tenderness, no pedal edema Neurological/Psych: +Disoriented to time. Confused. Pt making conversation but does not always make sense. Per more confused than normal still. Normal mood/affect, oriented x 2 Skin: Normal color, warm/dry, no rash (Jessica Connor ., PA-C) Laboratory Results Last 24 Hours Test 03/21/17 16:31 03/21/17 21:04 03/22/17 06:33 03/22/17 06:46 Bedside Glucose 148 mg/dl 165 mg/dl 106 mg/dl White Blood Count 8.51 K/uL Red Blood Count 3.30 M/uL Hemoglobin 12.3 g/dL Hematocrit 36.8 % Mean Corpuscular Volume 111.5 fL Mean Corpuscular Hemoglobin 37.3 pg Mean Corpuscular Hemoglobin Concent 33.4 g/dl Platelet Count 134 K/uL Neutrophils (%) (Auto) 59.7 % Lymphocytes (%) (Auto) 25.1 % Monocytes (%) (Auto) 12.2 % Eosinophils (%) (Auto) 2.0 % Basophils (%) (Auto) 0.4 % Neutrophils # (Auto) 5.08 K/uL Lymphocytes # (Auto) 2.14 K/uL Monocytes # (Auto) 1.04 K/uL Eosinophils # (Auto) 0.17 K/uL Basophils # (Auto) 0.03 K/uL Immature Granulocyte % (Auto) 0.6 % Immature Granulocyte # (Auto) 0.05 K/uL Macrocytosis PRESENT Prothrombin Time 15.4 SECONDS Prothromb Time International Ratio 1.4 Sodium Level 134 mmol/L Potassium Level 4.4 mmol/L Chloride Level 98 mmol/L Carbon Dioxide Level 26 mmol/L Anion Gap 10.0 mmol/L Blood Urea Nitrogen 49 mg/dl Creatinine 5.86 mg/dl Est Creatinine Clear Calc Drug Dose 10.0 ml/min Estimated GFR () 9.4 Estimated GFR (Non- 8.1 BUN/Creatinine Ratio 8.3 Random Glucose 101 mg/dl Calcium Level 8.8 mg/dl Random Vancomycin Level 19.6 mcg/ml Test 03/22/17 11:13 Phosphorus Level 2.9 mg/dl Parathyroid Hormone (Intact) 92.6 pg/mL (Jessica Connor ., NICOLETTE) Assessment and Plan 82 y/o male with a history of ESRD on HD, a-fib, ischemic cardiomyopathy, dual- chamber AICD, CAD, carotid artery stenosis, HTN, HLD, chronic systolic CHF, DM II, hypothyroidism, gout and glaucoma who presented to the ED on 03/19 with altered mental status. Head CT no acute disease. CXR with interstitial pulmonary edema. Potassium 6.4, last dialysis 03/17. Troponin elevated above baseline at 2.11. WBC 15.02. INR 1.4. Hyperkalemia, AMS, ESRD on HD--resolving -Admit to ICU. Now in telemetry. No acute events overnight. Pt in rate controlled a-fib with HR in 60s -Hyperkalemia resolved, potassium stable. Received emergent dialysis 03/19. NOw back on dialysis schedule -Consult nephrology, appreciate recs: Consider switching vancomycin to ampicillin. Otherwise continue usual medications and regular dialysis schedule. -Continue to monitor electrolytes -AMS persists, pt still more confused than baseline Enterococcus bacteremia, UTI -Blood cultures positive for pansensitive enterococcus faecalis x 2 -Continue vancomycin and Zosyn -Consult infectious disease -Urine culture positive GPC -Echo shows EF 20-25%, severe global left ventricle hypokinesis. No vegetations seen. No significant change from previous study. Elevated troponin, could be secondary to ESRD. -Troponin chronically mildly elevated but 2.11 on admission -Cardiac enzymes q8h x 3. Troponin trended down from admission -Cardiology consulted, appreciate recs: Elevated troponin unclear etiology but does not appear to be ACS. Cath not indicated at this time. LVEF severely reduced but similar compared to earlier in the year. Currently on low dose of beta harry but may not be able to tolerate higher dose due to BP. Could try to slowly increase beta blockade. Could do SHAN if this would alter abx therapy. Subtherapeutic INR--ongoing -INR 1.4 on 03/22 -Pt typically takes warfarin 1 mg PO qd -Increase warfarin 2 mg PO qd -Monitor daily INR Recent fall--daughter states pt had been complaining of right shoulder pain before, denies currently -Visited ED 03/18, right shoulder x-ray showed no acute findings A-fib, ischemic cardiomyopathy, AICD, CAD, HTN, HLD--stable -Continue ASA, Coreg 6.25 mg PO BID, Lipitor 80 mg PO qd Chronic systolic CHF--denies any SOB, lungs clear on exam -CXR with interstitial pulmonary edema, BNP elevated. Received emergent dialysis 03/19 and now on regular schedule, this likely resolved DM II--A1c 6.5 on 03/19 -Insulin sliding scale -Check BSGs q ac and qhs Hypothyroidism -Continue Synthroid 175 mcg PO qd -TSH WNL Gout -Hold allopurinol Glaucoma -Continue timolol and travatan drops Left lower extremity wounds -Consult wound care nurse DVT prophylaxis -Heparin 5000 units SC q12h until INR therapeutic Code Status -Level I, FULL RESUSCITATION STATUS (Jessica Connor ., PA-C) Reviewed: Pt Seen/Exam by Me (Amber Orona, DO) History is present and feels that pt is improving, but not at his usual mentation baseline. Pt denies any new concerns other than being fatigued. Pt denies SOB , chest pain. He has been tolerating PO. Agree with HPI/ROS as noted. (Amber Orona, DO) General Appearance: WD/WN, no apparent distress Respiratory: normal breath sounds, no respiratory distress Cardiovascular: normal peripheral pulses, regular rate, rhythm Gastrointestinal: non tender, soft Extremities: non-tender, no pedal edema Neurologic/Psychiatric: alert, other (oriented to person and place, answers "2036" for year. Unclear about recent holiday. Struggled to lean forward even a small amount) Skin Characteristics: normal color, warm/dry (Amber Orona, ) Assessment/Plan Agree with plan as outlined above Can hold on ID c/s for now given clear C&S d/c vanco to ampicillin and monitor PT/OT Pt is from [facility] and generally fairly independent, however now requiring assistance Stable for transfer to floor Trop elevated on admission, likely demand ischemia in the setting of bacteremia Ongoing HD (Amber Orona, DO)
[2017-03-22] MEDS ORDERED: AMPICILLIN IV 1 GM in SODIUM CHLOR 0.9% AD-VAN 50ML 50 ML IV SCH (13:15)
[2017-03-22] MEDS: ACETAMINOPHEN 325 MG TAB PO PRN (13:49)
[2017-03-22] MEDS: AMPICILLIN IV 2,000 MG in SODIUM CHLOR 0.9% AD-VAN 100ML 100 ML IV SCH (14:24)
[2017-03-22] MEDS: WARFARIN SOD 2 MG TAB PO SCH (15:59)
[2017-03-22] MEDS: PANTOprazole SOD 40 MG TAB PO SCH (21:15)
[2017-03-22] MEDS: ATORVASTATIN 20 MG TAB PO SCH (21:16)
[2017-03-22] MEDS: TRAVOPROST Z 0.004% OPH SOLN 2.5 ML BTL OPB SCH (21:16)
[2017-03-23] VITALS (23 sets, daily range): BP systolic 99–137; BP diastolic 43–73; PULSE 50–77; TEMP 36.2–36.7; O2SAT 93–95
[2017-03-23] MEDS: AMPICILLIN IV 2,000 MG in SODIUM CHLOR 0.9% AD-VAN 100ML 100 ML IV SCH (02:20)
[2017-03-23] MEDS ORDERED: SODIUM CHLORIDE 0.9% 1000ML 1,000 ML IV PRN (06:00)
[2017-03-23] MEDS: LEVOTHYROXINE 175 MCG TAB PO SCH (06:07)
[2017-03-23 06:57] LABS: BASO % 0.3 %; BASO ABS # 0.02 K/uL (0-0.2); EOS % 1.9 %; HEMATOCRIT 37.7 % (42-52); IG% 0.9 %; LYMPH % 19.1 %; LYMPH ABS # 1.44 K/uL (1.2-3.4); MEAN CELL VOLUME 110.2 fL (80-100); MEAN CORPUSCULAR HEMOGLOBIN 37.4 pg (25-34); MEAN PLATELET VOLUME 10.7 fL (7.4-10.4); MONO % 9.4 %; NEUT % 68.4 %; PLATELET COUNT 155 K/uL (130-400); RED BLOOD COUNT 3.42 M/uL (4.7-6.1); WHITE BLOOD COUNT 7.55 K/uL (4.8-10.8)
[2017-03-23 07:10] LABS: INR 1.7 (0.9-1.1); PROTHROMBIN TIME (PATIENT) 18.6 SECONDS (9.0-12.0)
[2017-03-23 07:40] LABS: COMPLETE YES
[2017-03-23 07:41] LABS: BUN/CREATININE RATIO 8.7 (10-20); CALCIUM 8.4 mg/dl (8.5-10.1); CREATININE 7.35 mg/dl (0.60-1.40); POTASSIUM 4.4 mmol/L (3.5-5.1)
[2017-03-23] MEDS ORDERED: HEPARIN SOD (PORCINE) 1000 UNIT/ML 10 ML VIAL IV SCH (08:00)
[2017-03-23] MEDS: INSULIN ASPART 100 UNITS/ML 3 ML PEN SC SCH ×4 (08:00→20:46)
[2017-03-23] MEDS: CALCITRIOL 0.25 MCG CAP PO SCH (08:22)
[2017-03-23] MEDS: TIMOLOL MALEATE 0.5% OP SOLN 5 ML BTL OPB SCH ×2 (08:23→21:17)
[2017-03-23] MEDS: HEPARIN SOD 5000 UNIT/0.5 ML CARP SQ SCH ×2 (08:23→21:18)
[2017-03-23] MEDS: BOOST PLUS VANILLA PO SCH ×2 (08:23)
--- NOTE | 2017-03-23 10:40 | Medical Consult ---
Consultation Date of Consultation: Mar 23, 2017. Attending Physician: Abdi Aldrich M.D. Reason for Consultation: Enterococcal bacteremia, ESRD History of Present Illness 82-year-old male with complicated past medical history including end-stage renal disease on dialysis, diabetes mellitus, atrial fibrillation, status post dual-chamber pacemaker, who was admitted to the hospital with acute change in mental status. He was seen on March 18 in the emergency department after a fall, and was discharged home, but then readmitted the next day with increasing confusion. Had not been reported to have significant fever.On admission was found to have significant leukocytosis, blood cultures have returned positive for fully sensitive Enterococcus faecalis. He has been on IV vancomycin and has shown clinical improvement with improvement in mental status. Echocardiogram, transthoracic, shows no obvious valvular disease. Has had some skin ulcerations, and seen by wound care earlier this admission. Currently offers no specific complaints. Denies any pain. Has had no problem with dialysis. Past Medical/Surgical History Medical Problems: (1) Altered mental status Status: Chronic (2) Cellulitis of knee, right Status: Acute (3) Chronic kidney disease Status: Acute (4) Closed fracture of right proximal humerus Status: Acute (5) Dehydration Status: Acute (6) Dysphagia Status: Acute (7) Dysphasia Status: Acute (8) Elevated troponin Status: Acute (9) ESRD (end stage renal disease) Status: Acute (10) Fall Status: Acute (11) Fall Status: Acute (12) GI bleed Status: Acute (13) Hemorrhage of arteriovenous fistula Status: Acute (14) Hyperkalemia Status: Acute (15) Hypotension Status: Acute (16) Right leg pain Status: Acute (17) Shoulder pain, right Status: Acute (18) Supratherapeutic INR Status: Acute (19) Supratherapeutic INR Status: Acute Medical Problems: (1) access (2) Acute on chronic systolic (congestive) heart failure (3) Acute renal failure (4) Acute renal failure superimposed on stage 4 chronic kidney disease (5) Altered mental status (6) Atrial fibrillation (7) Bleeding (8) Cardiorenal syndrome with renal failure (9) Chronic CHF (10) Chronic kidney disease, stage IV (severe) (11) Congestive heart failure (12) Constipation (13) Diabetes (14) Dysphagia (15) End stage renal disease (16) Fracture of right hip (17) Hemorrhage of surgically-created arteriovenous fistula (18) Hemorrhage of surgically-created arteriovenous fistula (19) Hypertension (20) Hypothyroid (21) Injury of right toe (22) Ischemic cardiomyopathy (23) Leukocytosis (24) Occlusion of left subclavian vein Surgical Problems: (1) H/O excision of Zenker's diverticulum (2) Post-operative state (3) Post-operative state Family History Breast cancer Hyperlipidemia Hypertension Myocardial infarction Social History Smoking Status: Former Smoker (quit about 45 years ago) Smokeless Tobacco Use: No Alcohol Use: none Drug Use: none Marital Status: Housing Status: assisted living Occupation Status: retired Allergies Coded Allergies: No Known Allergies (Unverified , 03/18/17) Current Inpatient Medications Current Inpatient Medications Medications (Trade) Dose Ordered Sig/Summer Route Start Time Stop Time Status Last Admin Dose Admin Acetaminophen (Tylenol Tab) 650 mg Q4H PRN PO 03/19/17 13:00 04/18/17 12:59 03/22/17 13:49 650 MG Al Hydrox/Mg Hydrox/Simethicone (Maalox Max Susp) 15 ml Q4H PRN PO 03/19/17 13:00 04/18/17 12:59 Magnesium Hydroxide (Milk Of Magnesia Susp) 30 ml Q12H PRN PO 03/19/17 13:00 04/18/17 12:59 Ondansetron HCl (Zofran Inj) 4 mg Q6H PRN IV 03/19/17 13:00 04/18/17 12:59 Insulin Aspart (novoLOG ASPART) SLIDING SCALE If C... ACHS SC 03/19/17 16:00 04/18/17 15:59 03/22/17 12:14 3 UNITS Glucose (Glucose 40% Gel) 15-30 GRAMS 15 GRAMS... UD PRN PO 03/19/17 13:00 04/18/17 12:59 Glucose (Glucose Chew Tab) 4-8 Tablets 4 Tabl... UD PRN PO 03/19/17 13:00 04/18/17 12:59 Dextrose (Dextrose 50% 50ML Syringe) 25-50ML OF 50% DW IV FOR... UD PRN IV 03/19/17 13:00 04/18/17 12:59 Glucagon (Glucagon Inj) 1 mg UD PRN SQ 03/19/17 13:00 04/18/17 12:59 Aspirin (Ecotrin Tab) 81 mg QAM PO 03/20/17 09:00 04/19/17 08:59 03/22/17 08:12 81 MG Atorvastatin Calcium (Lipitor Tab) 80 mg HS PO 03/19/17 21:00 04/18/17 20:59 03/22/17 21:16 80 MG Calcium Carbonate (Tums Chew Tab) 500 mg TID PO 03/19/17 14:00 04/18/17 13:59 03/22/17 21:16 500 MG Carvedilol (Coreg Tab) 6.25 mg BID PO 03/19/17 21:00 04/18/17 20:59 03/22/17 21:16 6.25 MG Levothyroxine Sodium (Synthroid Tab) 175 mcg DAILYBB PO 03/20/17 06:00 04/19/17 05:59 03/23/17 06:07 175 MCG Multivitamins/ Minerals (Multivitamin W/ Minerals Tab) 1 tab QAM PO 03/20/17 09:00 04/19/17 08:59 03/22/17 08:12 1 TAB Enteral Nutritional Formula (Boost Plus Vanilla) 1 can QDB PO 03/20/17 07:15 04/19/17 07:14 03/22/17 08:13 1 CAN Pantoprazole Sodium (Protonix Tab) 40 mg QPM PO 03/19/17 21:00 04/18/17 20:59 03/22/17 21:15 40 MG Timolol Maleate (Timoptic 0.5% Oph Soln) 1 drops BID OPB 03/19/17 21:00 04/18/17 20:59 03/23/17 08:23 1 DROPS Travoprost (Travatan Z) 1 drops HS OPB 03/19/17 21:00 04/18/17 20:59 03/22/17 21:16 1 DROPS Heparin Sodium (Porcine) (Heparin Sq 5000 Unit/0.5ml) 5,000 unit Q12 SQ 03/19/17 21:00 04/18/17 20:59 03/23/17 08:23 5,000 UNIT Acetaminophen 100 ml @ 400 mls/hr Q8H PRN IV 03/19/17 20:30 04/18/17 20:29 Warfarin Sodium (Coumadin Tab) 2 mg DAILY@1600 PO 03/22/17 16:00 04/18/17 15:59 03/22/17 15:59 2 MG Heparin Sodium (Porcine) (Heparin Iv Bolus) 2,000 unit TODAY@0800 IV 03/23/17 08:00 03/23/17 23:59 Sodium Chloride 1,000 ml @ 0 mls/hr Q0M PRN IV 03/23/17 06:00 03/23/17 23:59 Calcitriol (Rocaltrol Cap) 0.5 mcg TuThSa@0800 PO 03/23/17 08:00 04/22/17 07:59 03/23/17 08:22 0.5 MCG Ampicillin Sodium 2000 mg/Sodium Chloride 100 ml @ 200 mls/hr Q12H IV 03/22/17 14:00 04/05/17 13:59 03/23/17 02:20 200 MLS/HR Review of Systems All systems were reviewed and are negative except as per HPI Physical Exam Date Time Temp Pulse Resp B/P (MAP) Pulse Ox O2 Delivery O2 Flow Rate FiO2 03/23/17 10:30 50 115/54 03/23/17 10:15 52 117/43 03/23/17 10:00 65 119/55 03/23/17 09:45 69 124/57 03/23/17 09:30 65 121/64 03/23/17 09:15 74 114/71 03/23/17 09:00 68 117/64 03/23/17 08:45 57 116/52 03/23/17 08:30 62 119/58 03/23/17 08:15 67 117/61 03/23/17 08:00 58 116/57 03/23/17 07:45 36.4 59 119/68 (85) 03/23/17 07:45 93 Room Air 03/23/17 07:25 36.7 61 17 104/50 (68) 93 Room Air 03/23/17 00:05 Room Air 03/22/17 23:55 36.5 61 16 108/55 (72) 95 Room Air 03/22/17 21:18 61 139/83 (101) 03/22/17 16:20 36.5 60 20 103/62 (76) 97 Room Air 03/22/17 16:10 Room Air 03/22/17 16:04 36.7 68 20 97 03/22/17 15:43 36.7 95 20 117/78 (91) 99 Room Air 03/22/17 12:00 Room Air 03/22/17 11:57 36.7 68 20 128/64 (85) 97 General Appearance: WD/WN, no apparent distress Head: normocephalic, atraumatic Eyes: normal inspection, EOMI, sclerae normal ENT: normal ENT inspection, pharynx normal Neck: supple, no adenopathy, trachea midline Respiratory/Chest: chest non-tender, lungs clear, normal breath sounds, no respiratory distress Cardiovascular: no gallop, no murmur, + irregularly irregular Abdomen/GI: normal bowel sounds, non tender, soft, no organomegaly Back: normal inspection, no CVA tenderness Extremities/Musculoskelatal: no calf tenderness, + pertinent finding (Chronic venous stasis changes) Neurologic/Psych: alert, + pertinent finding (Oriented x2) Skin: normal color, no rash, + pertinent finding (Left heel ulceration with some erythema) Lymphatic: no adenopathy Laboratory Results RUN DATE: 03/21/17 [facility] PAGE 1 RUN TIME: 1439 Specimen Inquiry PATIENT: NANNETTE STOUT LOC: Daniela U # : [id number] AGE/SX: 82/M ROOM: [facility] REG : 03/19/[address]: Abdi Aldrich M : 1935 BED: 1 DIS : STATUS: ADM IN TLOC: SPEC #: [id number] JULIO: 03/19/17 STATUS: ELIAN RETae #: [id number] RECD: 03/19/[address] [facility] [address]: Ernesto Cardenas M.D. SOURCE: BLOOD ENTR: 03/19/[address] [facility] [address]: Vivek Ramirez M.D. [facility]: ORDERED: BLOOD CULTURE COMMENTS: Comments to [employer]aning SAME TIME, DIFFERENT SITES Procedure Result Verified Site BLD CULT Final 03/21/17-1438 Organism 1 ENTEROCOCCUS FAECALIS SENS SENSITIVITY TO FOLLOW Phoned Positive Blood Culture Gram Stain Report to OSWALDO ELLINGTON on 03/19/17 At 2319 By BRITTANY. Results were verbalized back to BRITTANY. 1. ENTEROCOCCUS FAECALIS Target Route Dose RX AB Cost M.I.C. IQ ------ ----- ------ -- ------ -------- - ------ AMPICILLIN S <=2 GENT SYNERGY S <=500 VANCOMYCIN S 2 PENICILLIN S 2 DAPTOMYCIN S 2 STREP SYNERGY S <=1000 Streptomycin Synergy Screen S Gentamicin Synergy Screen S S = SENSITIVE I = INTERMEDIATE R = RESISTANT END OF REPORT Last 24 Hours Test 03/22/17 11:13 03/22/17 12:07 03/22/17 16:57 03/22/17 20:57 Phosphorus Level 2.9 mg/dl Parathyroid Hormone (Intact) 92.6 pg/mL Bedside Glucose 203 mg/dl 109 mg/dl 117 mg/dl Test 03/23/17 06:29 03/23/17 07:28 White Blood Count 7.55 K/uL Red Blood Count 3.42 M/uL Hemoglobin 12.8 g/dL Hematocrit 37.7 % Mean Corpuscular Volume 110.2 fL Mean Corpuscular Hemoglobin 37.4 pg Mean Corpuscular Hemoglobin Concent 34.0 g/dl Platelet Count 155 K/uL Mean Platelet Volume 10.7 fL Neutrophils (%) (Auto) 68.4 % Lymphocytes (%) (Auto) 19.1 % Monocytes (%) (Auto) 9.4 % Eosinophils (%) (Auto) 1.9 % Basophils (%) (Auto) 0.3 % Neutrophils # (Auto) 5.17 K/uL Lymphocytes # (Auto) 1.44 K/uL Monocytes # (Auto) 0.71 K/uL Eosinophils # (Auto) 0.14 K/uL Basophils # (Auto) 0.02 K/uL RDW Standard Deviation 59.9 fL RDW Coefficient of Variation 15.0 % Immature Granulocyte % (Auto) 0.9 % Immature Granulocyte # (Auto) 0.07 K/uL Macrocytosis PRESENT Prothrombin Time 18.6 SECONDS Prothromb Time International Ratio 1.7 Sodium Level 131 mmol/L Potassium Level 4.4 mmol/L Chloride Level 97 mmol/L Carbon Dioxide Level 24 mmol/L Anion Gap 10.0 mmol/L Blood Urea Nitrogen 64 mg/dl Creatinine 7.35 mg/dl Est Creatinine Clear Calc Drug Dose 8.0 ml/min Estimated GFR () 7.2 Estimated GFR (Non- 6.2 BUN/Creatinine Ratio 8.7 Random Glucose 130 mg/dl Calcium Level 8.4 mg/dl Bedside Glucose 170 mg/dl [~ rep ct add3]] CHEST ONE VIEW PORTABLE CLINICAL HISTORY: EVALUATE WEAKNESS dyspnea COMPARISON STUDY: 03/18/2017 FINDINGS: No change in the prior exam. Findings of interstitial pulmonary edema. Mild prominence of pulmonary vasculature. Permanent bipolar cardiac pacemaker/defibrillator in good position. IMPRESSION: Interstitial pulmonary edema and/or congestive failure. No significant change from the prior study. The above report was generated using voice recognition software. It may contain grammatical, syntax or spelling errors. Assessment & Plan Enterococcal bacteremia in patient with ESRD on dilysis. Would favor 2 weeks of IV vancomycin, which could be given at dialysis, followed by 4 weeks of amoxicillin. Will discuss.
--- NOTE | 2017-03-23 11:11 | NEPHROLOGY PROGRESS NOTE ---
DATE: 03/23/2017 DATE: 03/23/2017 SUBJECTIVE: Mr. Morrow denies having any discomfort. He denies having any chills or sweats. He has no chest pain and no shortness of breath. He says that his appetite is fair. He denies nausea or vomiting. He has been incontinent of stool. He was seen during his dialysis treatment. He was somewhat confused. However, he denied any specific symptoms of uremia or volume overload. OBJECTIVE: GENERAL: On physical exam, Mr. Morrow appeared as a chronically ill elderly gentleman of about his stated age of 82. He is afebrile (36.4), his blood pressure was 115/54, his pulse varied from a low of about 65 to a high of 74. Lower rates were associated with a regular and probable paced rhythm. His respiratory rate was 16-20. His pulse ox was 93-99% on room air. His skin showed normal skin turgor. He had marked changes of venous stasis dermatitis on his distal lower extremities. He had some scaliness as well. Additionally, he had a skin abrasion on the lateral aspect of his left leg and an ulceration on his left heel that was somewhat painful to touch. He has a left upper arm AV fistula. His left arm is swollen with some chronic discoloration of the left arm. He had a scar beneath the distal left clavicle from his palpable pacemaker defibrillator. He had scars on his right arm as well from the attempted creation of AV fistulas. He has no palpable lymphadenopathy or evidence of lymphangitis. HEAD: Normal. EYES: Grossly normal. The ocular fundi were not examined. EARS, NOSE, MOUTH AND THROAT: Unremarkable except for very poor dentition. Oral mucous membranes are moist. NECK: Supple. He has no jugular venous distention at about 60 degrees. He has no obvious carotid bruits. He has no thyromegaly. CHEST: Clear to auscultation, although he does have a few bibasilar rales which clear with repeated breathing. CARDIAC EXAMINATION: Shows an occasional regular (? paced) rhythm and periods have of an irregularly irregular rhythm consistent with his atrial fibrillation. S1 and S2 seem normal. There is a systolic murmur left sternal border and base. No diastolic murmurs are heard. ABDOMEN: Nontender. He has no organomegaly or mass. EXTREMITIES: Show the left arm AV fistula is functioning well. He has skin changes of his distal lower extremities. He has bilateral femoral murmurs. NEUROLOGIC EXAMINATION: Shows him to be obviously confused. He was unaware that he was in the hospital. However, he was aware of the month but not the year. He was aware of the name of the vice president global digital marketing. He has no focal neurologic changes. PERTINENT LABORATORY WORK: From today shows a white count of 7550 with an essentially normal differential. His hemoglobin was 12.8, hematocrit 37.7. Red cell indices are macrocytic. His platelet count is 155,000. His prothrombin time today is 18.6 with an INR of 1.7. Clinical chemistries from today show a sodium of 131 mmol/L, potassium 4.4 mmol/L, chloride 97 mmol/L, and CO2 content 24 mmol/L. His BUN is 64, creatinine 7.35. Blood sugars vary from a low of 109 to a high of 203. His serum calcium was 8.4. His recent PTH was 92.6 which is in an acceptable range for a patient with end-stage renal disease. His phosphate is 2.9. His only serum albumin was 3.3 done at the time of admission. His cultures were as previously recorded. He has an Enterococcus faecalis that is sensitive to both vancomycin as well as ampicillin. A urine culture grew out gram positive cocci and a low colony count. ASSESSMENT: Mr. Morrow is confused but stable. Certainly the signs of his acute infection have improved with his temperature being normal and his white count falling to normal. His confusion is likely secondary to his acute illness and his unfamiliar environment as well as the significant vascular disease that he has which would include cerebrovascular disease. RECOMMENDATIONS: He is receiving his routine dialysis treatment today. I would continue him on his usual medications. Apparently infectious disease will be consulted. However, in their absence would still consider switching him from vancomycin to ampicillin. Would try to get him out of bed. You may want to have physical therapy come by and work with the patient with transfers. Occupational therapy may be helpful with activities of daily living. Hopefully he will be able to return to his detention setting in the not too distant future and his dialysis can resume as an outpatient.
[2017-03-23] MEDS: CALCIUM CARBONATE 500 MG CHEWABLE PO SCH ×3 (13:03→21:16)
[2017-03-23] MEDS: CARVEDILOL 6.25 MG TAB PO SCH ×2 (13:03→21:16)
[2017-03-23] MEDS: HEPARIN SOD (PORCINE) 1000 UNIT/ML 10 ML VIAL IV SCH ×2 (13:03→13:04)
--- NOTE | 2017-03-23 13:07 | Hospitalist Progress Note ---
Hospitalist Progress Note Date of Service Mar 23, 2017. (Jessica Connor ., NICOLETTE) Subjective Pt evaluation today including: conversation w/ patient, physical exam, chart review, lab review, review of inpatient medication list Pain: None PO Intake: Tolerating PO diet Voiding: no voiding problems Patient reports feeling well and denies any complaints. The patient easily forgets where he is but is also easily redirected. The patient denies fevers, chills, sweats, chest pain, palpitations, claudication, cough, wheezing, shortness of breath, nausea, vomiting, abdominal pain, dysuria, hematuria, urinary retention, paralysis, weakness, numbness and tingling. Additional Comments: See HPI for pertinent positives and negatives. All other systems reviewed and negative. (Jessica Connor, TELLYC) Objective Vital Signs Date Time Temp Pulse Resp B/P (MAP) Pulse Ox O2 Delivery O2 Flow Rate FiO2 03/23/17 12:17 36.2 77 121/68 (85) 03/23/17 12:00 62 99/56 03/23/17 11:45 67 107/58 03/23/17 11:30 66 107/61 03/23/17 11:15 61 111/51 03/23/17 11:00 57 108/63 03/23/17 10:45 55 109/61 03/23/17 10:30 50 115/54 03/23/17 10:15 52 117/43 03/23/17 10:00 65 119/55 03/23/17 09:45 69 124/57 03/23/17 09:30 65 121/64 03/23/17 09:15 74 114/71 03/23/17 09:00 68 117/64 03/23/17 08:45 57 116/52 03/23/17 08:30 62 119/58 03/23/17 08:15 67 117/61 03/23/17 08:00 58 116/57 03/23/17 07:45 36.4 59 119/68 (85) 03/23/17 07:45 93 Room Air 03/23/17 07:25 36.7 61 17 104/50 (68) 93 Room Air 03/23/17 00:05 Room Air 03/22/17 23:55 36.5 61 16 108/55 (72) 95 Room Air 03/22/17 21:18 61 139/83 (101) 03/22/17 16:20 36.5 60 20 103/62 (76) 97 Room Air 03/22/17 16:10 Room Air 03/22/17 16:04 36.7 68 20 97 03/22/17 15:43 36.7 95 20 117/78 (91) 99 Room Air (Jessica Connor ., TELLYC) Physical Exam Notes: General appearance: Well-developed, well-nourished, no apparent distress Head: Normocephalic, atraumatic Eyes: Normal inspection, PERRL, EOMI ENT: Normal ENT inspection, hearing grossly normal, pharynx normal Neck: Supple, no JVD, trachea midline Respiratory/Chest: Lungs clear to auscultation, normal breath sounds, no respiratory distress Cardiovascular: Regular rate & rhythm, no gallop, no murmur Abdomen/GI: Normal bowel sounds, nontender, soft Extremities/Musculoskeletal: +Chronic venous insufficiency changes. Wounds left heel and left lateral leg dressed. No calf tenderness, no pedal edema Neurological/Psych: +Disoriented to time and place. Knew he was in [place] but not in the hospital. Confused. Pt's conversation does not always make sense. Normal mood/affect, oriented x 1 Skin: Normal color, warm/dry, no rash (Jessica Connor ., PA-C) Laboratory Results Last 24 Hours Test 03/22/17 16:57 03/22/17 20:57 03/23/17 06:29 03/23/17 07:28 Bedside Glucose 109 mg/dl 117 mg/dl 170 mg/dl White Blood Count 7.55 K/uL Red Blood Count 3.42 M/uL Hemoglobin 12.8 g/dL Hematocrit 37.7 % Mean Corpuscular Volume 110.2 fL Mean Corpuscular Hemoglobin 37.4 pg Mean Corpuscular Hemoglobin Concent 34.0 g/dl Platelet Count 155 K/uL Mean Platelet Volume 10.7 fL Neutrophils (%) (Auto) 68.4 % Lymphocytes (%) (Auto) 19.1 % Monocytes (%) (Auto) 9.4 % Eosinophils (%) (Auto) 1.9 % Basophils (%) (Auto) 0.3 % Neutrophils # (Auto) 5.17 K/uL Lymphocytes # (Auto) 1.44 K/uL Monocytes # (Auto) 0.71 K/uL Eosinophils # (Auto) 0.14 K/uL Basophils # (Auto) 0.02 K/uL RDW Standard Deviation 59.9 fL RDW Coefficient of Variation 15.0 % Immature Granulocyte % (Auto) 0.9 % Immature Granulocyte # (Auto) 0.07 K/uL Macrocytosis PRESENT Prothrombin Time 18.6 SECONDS Prothromb Time International Ratio 1.7 Sodium Level 131 mmol/L Potassium Level 4.4 mmol/L Chloride Level 97 mmol/L Carbon Dioxide Level 24 mmol/L Anion Gap 10.0 mmol/L Blood Urea Nitrogen 64 mg/dl Creatinine 7.35 mg/dl Est Creatinine Clear Calc Drug Dose 8.0 ml/min Estimated GFR () 7.2 Estimated GFR (Non- 6.2 BUN/Creatinine Ratio 8.7 Random Glucose 130 mg/dl Calcium Level 8.4 mg/dl (Jessica Connor ., NICOLETTE) Assessment and Plan 82 y/o male with a history of ESRD on HD, a-fib, ischemic cardiomyopathy, dual- chamber AICD, CAD, carotid artery stenosis, HTN, HLD, chronic systolic CHF, DM II, hypothyroidism, gout and glaucoma who presented to the ED on 03/19 with altered mental status. Head CT no acute disease. CXR with interstitial pulmonary edema. Potassium 6.4, last dialysis 03/17. Troponin elevated above baseline at 2.11. WBC 15.02. INR 1.4. Hyperkalemia, AMS, ESRD on HD--resolving -Admit to ICU. Now in telemetry. No acute events overnight. Pt in rate controlled a-fib with HR in 60s. Transferred to med/surg 03/22 -Hyperkalemia resolved, potassium stable. Received emergent dialysis 03/19. Now back on dialysis schedule -Consult nephrology, appreciate recs: Consider switching vancomycin to ampicillin. Otherwise continue usual medications and regular dialysis schedule. -Continue to monitor electrolytes -AMS persists, pt still more confused than baseline Enterococcus bacteremia, UTI -Blood cultures positive for pansensitive enterococcus faecalis x 2 -Repeat blood cultures pending -Consult infectious disease, appreciate recs: Recommend IV vancomycin x 2 weeks , then amoxicillin x 4 weeks. -D/c ampicillin, restart vanc -Urine culture positive GPC -Echo shows EF 20-25%, severe global left ventricle hypokinesis. No vegetations seen. No significant change from previous study. Elevated troponin, could be secondary to ESRD. -Troponin chronically mildly elevated but 2.11 on admission -Cardiac enzymes q8h x 3. Troponin trended down from admission -Cardiology consulted, appreciate recs: Elevated troponin unclear etiology but does not appear to be ACS. Cath not indicated at this time. LVEF severely reduced but similar compared to earlier in the year. Currently on low dose of beta harry but may not be able to tolerate higher dose due to BP. Could try to slowly increase beta blockade. Could do SHAN if this would alter abx therapy. Subtherapeutic INR--ongoing/improving -INR 1.7 on 03/23 -Pt typically takes warfarin 1 mg PO qd -Continue warfarin 2 mg PO qd -Monitor daily INR Recent fall--daughter states pt had been complaining of right shoulder pain before, denies currently -Visited ED 03/18, right shoulder x-ray showed no acute findings A-fib, ischemic cardiomyopathy, AICD, CAD, HTN, HLD--stable -Continue ASA, Coreg 6.25 mg PO BID, Lipitor 80 mg PO qd Chronic systolic CHF--denies any SOB, lungs clear on exam -CXR with interstitial pulmonary edema, BNP elevated. Received emergent dialysis 03/19 and now on regular schedule, this likely resolved DM II--A1c 6.5 on 03/19 -Insulin sliding scale -Check BSGs q ac and qhs Hypothyroidism -Continue Synthroid 175 mcg PO qd -TSH WNL Gout -Hold allopurinol Glaucoma -Continue timolol and travatan drops Left lower extremity wounds -Consult wound care nurse DVT prophylaxis -Heparin 5000 units SC q12h until INR therapeutic Code Status -Level I, FULL RESUSCITATION STATUS Dispo -Per nursing, requiring max assist with transfers. Comes from assisted living -Case management aware, will follow up with [facility] to assess how much care they can provide and if SNF or acute rehab referral is needed (Jessica Connor ., PA-C) PA Physician Supervision Note: I interviewed and examined the patient. Discussed with Jessica Connor PAC and agree with findings and plan as documented in the note. Any exceptions or clarifications are listed here: None Patient is seen in dialysis he is actually looking slightly more bright than usual, infectious diseases weight and feels that we should initially use 2 weeks of intravenous vancomycin administered at dialysis followed by amoxicillin by mouth. Dr. De Jesus will discuss with Dr. Ramirez. Overall concern would be where the patient transitions to from this acute care stay. He can only return to his current personal care if he would go to hospice therapy without would stop his dialysis treatments I believe he is deconditioned and will likely need subacute rehabilitation perhaps at a significant this will also facilitate transportation to dialysis and assurance he receives antibiotics. Overall his vitals are stable he is cardiac exam is regular without murmur his legs have marked chronic venous stasis changes and some open areas which are being attended to by wound management Enterococcus bacteremia, end-stage renal disease, peripheral vascular disease which is severe. Follow infectious disease plan of care with vancomycin transitioning to penicillin OT PT evaluation for possible transition for placement Documented By: Abdi Aldrich (Abdi Aldrich M.D.)
[2017-03-23] MEDS: CEROVITE ADV FORMULA TAB PO SCH (13:09)
[2017-03-23] MEDS: ASPIRIN 81 MG ECTAB PO SCH (13:09)
[2017-03-23] MEDS ORDERED: VANCOMYCIN CONSULT ACTIVE PRN (13:15)
[2017-03-23] MEDS: VANCOMYCIN INJ 750 MG in SODIUM CHLORIDE 0.9% 250ML 250 ML IV STA ×2 (13:58→14:30)
--- NOTE | 2017-03-23 14:11 | Pharmacy Progress Note ---
Pharmacy Abx Dose Short Note Date of Service Mar 23, 2017. Assessment & Plan Assessment * 82 year old male who started IV vancomycin therapy on 03/19 for sepsis secondary to enterococcus faecalis bacteremia * On 03/22, vancomycin IV was discontinued and the patient started Ampicillin IV as the enterococcus was also sensitive to this abx * Today ampicillin is being discontinued and IV vancomycin restarted per ID's recommendations due to convenience of dosing with hemodialysis * Day # 5 of antimicrobial therapy - planned duration of therapy = 14 days IV ABX followed by PO amoxicillin x 4 weeks per ID's recommendations * Currently afebrile and WBC normalized Plan Vancomycin * Last dose of vancomycin IV was 500mg on 03/21 @1043 * Random vancomycin level drawn 03/22 AM was 19.6, within the therapeutic range * No hemodialysis given on 03/22 so doubt level dropped below 15 * Hemodialysis this AM, 4 hr session completed around 1217 * Vancomycin 750mg IV x 1 after today's HD * Recheck random vancomycin level w/ AM labs tomorrow * Will continue to dose empirically; plan is to redose when level 15-20 or anticipated to be within this range. Pharmacy will continue to follow and will adjust dose/frequency as necessary. Thank you.
[2017-03-23] MEDS: WARFARIN SOD 2 MG TAB PO SCH (16:12)
[2017-03-23] MEDS: ATORVASTATIN 20 MG TAB PO SCH (21:16)
[2017-03-23] MEDS: PANTOprazole SOD 40 MG TAB PO SCH (21:16)
[2017-03-23] MEDS: TRAVOPROST Z 0.004% OPH SOLN 2.5 ML BTL OPB SCH (21:17)
[2017-03-24] VITALS (7 sets, daily range): BP systolic 101–156; BP diastolic 58–82; PULSE 60–64; TEMP 36.3–36.4; O2SAT 97–100
[2017-03-24] MEDS: LEVOTHYROXINE 175 MCG TAB PO SCH (06:30)
[2017-03-24 07:12] LABS: BASO % 0.6 %; BASO ABS # 0.04 K/uL (0-0.2); COMPLETE YES; EOS % 2.9 %; HEMATOCRIT 37.6 % (42-52); IG% 0.9 %; LYMPH % 33.1 %; LYMPH ABS # 2.17 K/uL (1.2-3.4); MEAN CORPUSCULAR HEMOGLOBIN 37.1 pg (25-34); MEAN PLATELET VOLUME 10.8 fL (7.4-10.4); NEUT % 48.5 %; PLATELET COUNT 171 K/uL (130-400); RED BLOOD COUNT 3.45 M/uL (4.7-6.1); WHITE BLOOD COUNT 6.55 K/uL (4.8-10.8)
[2017-03-24 07:19] LABS: PROTHROMBIN TIME (PATIENT) 22.6 SECONDS (9.0-12.0)
[2017-03-24 08:00] LABS: BUN/CREATININE RATIO 7.2 (10-20); CREATININE 5.47 mg/dl (0.60-1.40); POTASSIUM 3.6 mmol/L (3.5-5.1)
[2017-03-24] MEDS: BOOST PLUS VANILLA PO SCH ×2 (08:33)
[2017-03-24] MEDS: INSULIN ASPART 100 UNITS/ML 3 ML PEN SC SCH ×4 (08:35→20:55)
[2017-03-24] MEDS: TIMOLOL MALEATE 0.5% OP SOLN 5 ML BTL OPB SCH ×2 (09:22→20:50)
[2017-03-24] MEDS: ASPIRIN 81 MG ECTAB PO SCH (09:49)
[2017-03-24] MEDS: CEROVITE ADV FORMULA TAB PO SCH (09:50)
[2017-03-24] MEDS: CALCIUM CARBONATE 500 MG CHEWABLE PO SCH ×3 (09:50→20:53)
[2017-03-24] MEDS: CARVEDILOL 6.25 MG TAB PO SCH ×2 (09:50→20:53)
[2017-03-24] MEDS: HEPARIN SOD 5000 UNIT/0.5 ML CARP SQ SCH (09:52)
--- NOTE | 2017-03-24 10:58 | NEPHROLOGY PROGRESS NOTE ---
DATE: 03/24/2017 DATE: 03/24/2017 SUBJECTIVE: Mr. Morrow says that he is feeling relatively well. However, he does seem a bit confused. He still is confused as to place and the year, although he is aware of the month and certainly recognizes me. He still seems confused with regard to his circumstance. He currently denies any chest pain and denies shortness of breath. He denies having any chills or sweats. He denies having a cough. He does not respond when asked about his appetite, but apparently his appetite has not been particularly good. He denies having any abdominal pain. He has had frequent bowel movements yesterday and 1 already today. OBJECTIVE: GENERAL: On physical examination, he appears as a chronically ill elderly gentleman who did not seem to be in any distress. As noted, he is obviously confused. VITAL SIGNS: He is afebrile (36.4), his blood pressure currently 102/68 with a pulse of 63 and irregular. Respiratory rate is 20, his pulse ox 95-100% on room air. SKIN: Shows essentially normal skin turgor. His distal lower extremities are quite violaceous and dark in color with some scaliness. On the lateral aspect of his left leg he has a skin abrasion that is dressed. On his left heel he has a superficial ulceration that is likewise dressed. That seems to be somewhat painful. He has scars on both arms from attempted creations of an AV fistula. There is a functional left upper arm AV fistula. He has a palpable pacemaker defibrillator beneath the distal left clavicle. LYMPHATICS: Show no palpable lymphadenopathy. HEAD: Normal. EYES: Grossly normal. The ocular fundi were not examined. EARS, NOSE, MOUTH AND THROAT: Unremarkable except for his poor dentition. Oral mucous membranes are moist. NECK: Supple. There is no jugular venous distention at about 45 degrees. There are no obvious carotid bruits. He has no thyromegaly. CHEST: Shows bibasilar crackles which did not clear today. Otherwise, his chest is clear. CARDIAC EXAMINATION: Shows an irregular rhythm. S1 and S2 seem normal. He has a soft systolic murmur at the left sternal border and base. No diastolic murmurs are heard. ABDOMEN: Nontender. It is not distended. There is no organomegaly or mass and bowel sounds are normal. EXTREMITIES: Show the left arm AV fistula that is functioning well. He has skin changes of his distal lower extremities that are described. He has bilateral femoral murmurs. NEUROLOGIC EXAMINATION: Shows him to be still confused. There are no focal neurologic abnormalities. He does have global weakness. PERTINENT LABORATORY WORK: From today shows a white count of 6550 with a normal differential. His hemoglobin is 12.8. His hematocrit 37.6. Red cell indices are macrocytic, his platelet count 171,000. His prothrombin time is 22.6 with an INR of 2.0. Clinical chemistries from today show a sodium of 132 mmol/L, potassium 3.6 mmol/L, chloride 96 mmol/L, and CO2 content 27 mmol/L, BUN is 39, his creatinine 5.47. His serum calcium is 8.0. Blood sugars varied in the course of the past 24 hours from [address] De Jesus's note is noted with the recommendation of continued vancomycin for a total of 2 weeks followed by amoxicillin 500 mg 3 times a day for an additional 4 weeks. Certainly IV vancomycin can be given at the dialysis unit if he is to be discharged. I would agree with Dr. Aldrich that he should be discharged to a [facility] facility for continued recovery. RECOMMENDATIONS: As above. We will continue with vancomycin. Hopefully he can be transferred to a [facility] setting at least for the near future. I will be prepared to arrange for his outpatient dialysis and outpatient vancomycin when discharged. Currently I have written for his dialysis orders for tomorrow.
--- NOTE | 2017-03-24 12:11 | Hospitalist Progress Note ---
Hospitalist Progress Note Date of Service Mar 24, 2017. (Jessica Connor ., TELLYC) Subjective Pt evaluation today including: conversation w/ patient, conversation w/ family ( at bedside, spoke to daughter Brigitte on phone), physical exam, chart review, lab review, review of inpatient medication list Pain: None PO Intake: Tolerating PO diet Voiding: no voiding problems The patient reports feeling well. His is at bedside and states that he seems to be doing well mentally and appears more himself. He denies any complaints currently. The patient denies fevers, chills, sweats, chest pain, palpitations, claudication, cough, wheezing, shortness of breath, nausea, vomiting, abdominal pain, dysuria, hematuria, urinary retention, paralysis, weakness, numbness and tingling. Additional Comments: See HPI for pertinent positives and negatives. All other systems reviewed and negative. (Jessica Connor ., JARAD-C) Objective Vital Signs Date Time Temp Pulse Resp B/P (MAP) Pulse Ox O2 Delivery O2 Flow Rate FiO2 03/24/17 09:23 63 102/68 (79) 03/24/17 08:30 100 Room Air 03/24/17 08:16 100 Room Air 03/24/17 07:45 36.4 64 20 156/82 (106) 100 Room Air 03/23/17 23:56 36.6 58 18 129/66 (87) 95 Room Air 03/23/17 23:00 Room Air 03/23/17 21:13 63 137/73 (94) 03/23/17 16:10 36.3 61 17 105/57 (73) 93 Room Air 03/23/17 15:40 Room Air 03/23/17 12:17 36.2 77 121/68 (85) 03/23/17 12:00 62 99/56 (Jessica Connor, JARAD-C) Physical Exam Notes: General appearance: Well-developed, well-nourished, no apparent distress Head: Normocephalic, atraumatic Eyes: Normal inspection, PERRL, EOMI ENT: Normal ENT inspection, hearing grossly normal, pharynx normal Neck: Supple, no JVD, trachea midline Respiratory/Chest: Lungs clear to auscultation, normal breath sounds, no respiratory distress Cardiovascular: +Irregularly irregular, rate controlled. No gallop, no murmur Abdomen/GI: Normal bowel sounds, nontender, soft Extremities/Musculoskeletal: +Chronic venous insufficiency changes. Wounds left heel and left lateral leg dressed. No calf tenderness, no pedal edema Neurological/Psych: +Disoriented to time. Mentation seems improved, pt is answering questions appropriately. Normal mood/affect, oriented x 2 Skin: Normal color, warm/dry, no rash (Jessica Connor ., NICOLETTE) Laboratory Results Last 24 Hours Test 03/23/17 13:10 03/23/17 17:44 03/23/17 20:28 03/24/17 06:34 Bedside Glucose 106 mg/dl 122 mg/dl 145 mg/dl White Blood Count 6.55 K/uL Red Blood Count 3.45 M/uL Hemoglobin 12.8 g/dL Hematocrit 37.6 % Mean Corpuscular Volume 109.0 fL Mean Corpuscular Hemoglobin 37.1 pg Mean Corpuscular Hemoglobin Concent 34.0 g/dl Platelet Count 171 K/uL Mean Platelet Volume 10.8 fL Neutrophils (%) (Auto) 48.5 % Lymphocytes (%) (Auto) 33.1 % Monocytes (%) (Auto) 14.0 % Eosinophils (%) (Auto) 2.9 % Basophils (%) (Auto) 0.6 % Neutrophils # (Auto) 3.17 K/uL Lymphocytes # (Auto) 2.17 K/uL Monocytes # (Auto) 0.92 K/uL Eosinophils # (Auto) 0.19 K/uL Basophils # (Auto) 0.04 K/uL RDW Standard Deviation 60.4 fL RDW Coefficient of Variation 15.1 % Immature Granulocyte % (Auto) 0.9 % Immature Granulocyte # (Auto) 0.06 K/uL Prothrombin Time 22.6 SECONDS Prothromb Time International Ratio 2.0 Sodium Level 132 mmol/L Potassium Level 3.6 mmol/L Chloride Level 96 mmol/L Carbon Dioxide Level 27 mmol/L Anion Gap 9.0 mmol/L Blood Urea Nitrogen 39 mg/dl Creatinine 5.47 mg/dl Est Creatinine Clear Calc Drug Dose 10.7 ml/min Estimated GFR () 10.2 Estimated GFR (Non- 8.8 BUN/Creatinine Ratio 7.2 Random Glucose 96 mg/dl Calcium Level 8.0 mg/dl Random Vancomycin Level 20.4 mcg/ml (Jessica Connor ., NICOLETTE) Assessment and Plan 82 y/o male with a history of ESRD on HD, a-fib, ischemic cardiomyopathy, dual- chamber AICD, CAD, carotid artery stenosis, HTN, HLD, chronic systolic CHF, DM II, hypothyroidism, gout and glaucoma who presented to the ED on 03/19 with altered mental status. Head CT no acute disease. CXR with interstitial pulmonary edema. Potassium 6.4, last dialysis 03/17. Troponin elevated above baseline at 2.11. WBC 15.02. INR 1.4. Hyperkalemia, AMS, ESRD on HD--resolving -Admit to ICU. Now in telemetry. No acute events overnight. Pt in rate controlled a-fib with HR in 60s. Transferred to med/surg 03/22 -Hyperkalemia resolved, potassium stable. Received emergent dialysis 03/19. Now back on dialysis schedule -Consult nephrology, appreciate recs: Continue with vancomycin, can arrange for this with dialysis as an outpatient. -Continue to monitor electrolytes -AMS improving Enterococcus bacteremia, UTI--improving -Blood cultures positive for pansensitive enterococcus faecalis x 2 -Repeat blood cultures 03/22 NGTD x 2 -Consult infectious disease, appreciate recs: Recommend IV vancomycin x 2 weeks , then amoxicillin PO x 4 weeks. -Continue vancomycin IV -Urine culture positive GPC -Echo shows EF 20-25%, severe global left ventricle hypokinesis. No vegetations seen. No significant change from previous study. Elevated troponin, could be secondary to ESRD. -Troponin chronically mildly elevated but 2.11 on admission -Cardiac enzymes q8h x 3. Troponin trended down from admission -Cardiology consulted, appreciate recs: Elevated troponin unclear etiology but does not appear to be ACS. Cath not indicated at this time. LVEF severely reduced but similar compared to earlier in the year. Currently on low dose of beta harry but may not be able to tolerate higher dose due to BP. Could try to slowly increase beta blockade. Could do SHAN if this would alter abx therapy. Subtherapeutic INR--resolved -INR 2.0 on 03/24 -Pt typically takes warfarin 1 mg PO qd -Continue warfarin 2 mg PO qd -Monitor daily INR Recent fall--daughter states pt had been complaining of right shoulder pain before, denies currently -Visited ED 03/18, right shoulder x-ray showed no acute findings A-fib, ischemic cardiomyopathy, AICD, CAD, HTN, HLD--stable -Continue ASA, Coreg 6.25 mg PO BID, Lipitor 80 mg PO qd Chronic systolic CHF--denies any SOB, lungs clear on exam -CXR with interstitial pulmonary edema, BNP elevated. Received emergent dialysis 03/19 and now on regular schedule, this likely resolved DM II--A1c 6.5 on 03/19 -Insulin sliding scale -Check BSGs q ac and qhs Hypothyroidism -Continue Synthroid 175 mcg PO qd -TSH WNL Gout -Hold allopurinol Glaucoma -Continue timolol and travatan drops Left lower extremity wounds -Consult wound care nurse DVT prophylaxis -Can d/c heparin, INR therapeutic Code Status -Level I, FULL RESUSCITATION STATUS Dispo -Per nursing, requiring max assist with transfers. Comes from assisted living -PT recommended SNF with PT/OT at discharge -Case management following, family wants [facility] as first choice as pt has been there before. Awaiting determination (Jessica Connor ., PA-C) PA Physician Supervision Note: I interviewed and examined the patient. Discussed with Jessica Connor PAC and agree with findings and plan as documented in the note. Any exceptions or clarifications are listed here: None Patient is continuing to slowly and steadily improve. I'm concerned his chronic medical conditions are going to limit his overall rehabilitative state. The patient is going to be moved to a nursing home facility to continue his therapy IV antibiotics and transportation to dialysis. The patient's lower extremities have chronic venous stasis changes and likely some vascular compromise and I'm worried that this will limit his ability to effectively regain his ambulation. Vitals are stable with slightly low blood pressure Cardiac exam is regular with a systolic murmur lungs have decreased breath sounds at the bases. His lower extremities of chronic venous stasis changes poor pulses and open areas attended to by wound care Enterococcus bacteremia associated with metabolic encephalopathy. Exact source is unclear the patient has vascular access from his dialysis his dentition in poor repair he has marked skin wounds and lesions due to his peripheral vascular disease. We'll continue treatment with intravenous vancomycin per infectious disease recommendations via hemodialysis for approximately 2 weeks and then subsequent transition to oral amoxicillin for 4 weeks after that. Case management is working on placement [facility] Documented By: Abdi Aldrich (Abdi Aldrich M.D.)
[2017-03-24] MEDS ORDERED: BOOST GLUCOSE CONTROL PO ONE (14:00)
[2017-03-24] MEDS: WARFARIN SOD 2 MG TAB PO SCH (15:59)
[2017-03-24] MEDS: BOOST GLUCOSE CONTROL PO SCH (18:47)
[2017-03-24] MEDS: TRAVOPROST Z 0.004% OPH SOLN 2.5 ML BTL OPB SCH (20:50)
[2017-03-24] MEDS: ATORVASTATIN 20 MG TAB PO SCH (20:54)
[2017-03-24] MEDS: PANTOprazole SOD 40 MG TAB PO SCH (20:54)
[2017-03-25] VITALS (23 sets, daily range): BP systolic 90–127; BP diastolic 42–69; PULSE 54–68; TEMP 36.3–36.6; O2SAT 94–98
[2017-03-25] MEDS: LEVOTHYROXINE 175 MCG TAB PO SCH (05:48)
[2017-03-25 06:39] LABS: INR 2.2 (0.9-1.1); PROTHROMBIN TIME (PATIENT) 24.2 SECONDS (9.0-12.0)
[2017-03-25 07:22] LABS: BUN/CREATININE RATIO 8.4 (10-20); CALCIUM 8.3 mg/dl (8.5-10.1); CREATININE 6.94 mg/dl (0.60-1.40); POTASSIUM 3.8 mmol/L (3.5-5.1)
[2017-03-25] MEDS ORDERED: SODIUM CHLORIDE 0.9% 1000ML 1,000 ML IV PRN (08:00)
[2017-03-25] MEDS ORDERED: HEPARIN SOD (PORCINE) 1000 UNIT/ML 10 ML VIAL IV SCH (08:00)
[2017-03-25] MEDS: INSULIN ASPART 100 UNITS/ML 3 ML PEN SC SCH ×4 (08:11→22:01)
[2017-03-25] MEDS: BOOST GLUCOSE CONTROL PO SCH ×3 (08:12→19:23)
[2017-03-25] MEDS: TIMOLOL MALEATE 0.5% OP SOLN 5 ML BTL OPB SCH ×2 (08:44→21:59)
[2017-03-25] MEDS: CARVEDILOL 6.25 MG TAB PO SCH ×2 (08:44→22:04)
[2017-03-25] MEDS: CEROVITE ADV FORMULA TAB PO SCH (08:46)
[2017-03-25] MEDS: ASPIRIN 81 MG ECTAB PO SCH (08:47)
[2017-03-25] MEDS: CALCITRIOL 0.25 MCG CAP PO SCH (08:48)
[2017-03-25] MEDS: CALCIUM CARBONATE 500 MG CHEWABLE PO SCH ×3 (08:49→22:00)
[2017-03-25] MEDS: ACETAMINOPHEN 325 MG TAB PO PRN (08:59)
[2017-03-25] MEDS: HEPARIN SOD (PORCINE) 1000 UNIT/ML 10 ML VIAL IV SCH ×3 (10:15→12:05)
--- NOTE | 2017-03-25 11:25 | NEPHROLOGY PROGRESS NOTE ---
DATE: 03/25/2017 SUBJECTIVE: Mr. Morrow says that he is feeling relatively well. He denies having any chest pain or shortness of breath. He denies chills or fevers. He says that his appetite is fair. He denies nausea or vomiting. He says that he is having regular bowel movements. He has no other particular symptoms or complaints. That includes no leg pain, although he continues to have pain involving his left heel. He was seen today during his dialysis treatment. OBJECTIVE: GENERAL: On physical exam, Mr. Morrow appears to be awake and alert, but still shows some evidence of confusion to time and situation. VITAL SIGNS: He is afebrile (36.6), his blood pressure 112/49, his pulse 61 and seemingly regular (probably paced), respiratory rate is 18, and his pulse ox is 94%-97% on room air. SKIN: Shows essentially normal skin turgor. He has changes on his distal lower extremities consistent with severe venous stasis dermatitis. His distal lower extremities are violaceous in color. The skin is wrinkled with some scaly spots. He has areas denuded skin on the lateral aspect of the left calf. On the left heel, he has a shallow ulceration with no significant surrounding cellulitis. LYMPHATICS: Show no evidence of lymphangitis or lymphadenopathy. HEAD: Normal. EYES: Grossly normal. The ocular fundi were not examined. EARS, NOSE, MOUTH AND THROAT: Unremarkable except for poor dentition. Oral mucous membranes are moist. NECK: Supple. He has no jugular venous distention sitting at about 45 degrees. He has no carotid bruit. There is no thyromegaly. CHEST: Shows a few bibasilar crackles, which do tend to clear with deep breathing. Otherwise, no abnormalities are noted. CARDIAC: Shows currently regular rhythm. S1 and S2 seem normal. He has a systolic murmur at the left sternal border and base. No diastolic murmurs are heard. He has a palpable pacemaker beneath the distal left clavicle. ABDOMEN: Nontender. There is no organomegaly or mass. Bowel sounds are normal. I do not hear any abdominal bruits. EXTREMITIES: Show a left upper arm AV fistula that is functioning well. He has scars on both arms from the creation of fistulas. The right arm attempted fistula is nonfunctional. He has lower extremity changes described above. He has bilateral femoral murmurs. I do not feel pedal pulses. His toes are slightly cool, but certainly not cold. He has a slow capillary refill in his fingers and toes. NEUROLOGIC: Shows confusion, but no focal abnormalities. He does have global weakness. PERTINENT LABORATORY WORK: From today shows a prothrombin time of 24.2 with an INR of 2.2. Clinical chemistries show sodium of 130 mmol/L, potassium 3.8 mmol/L, chloride 96 mmol/L, and CO2 content 25 mmol/L. His BUN is 58 and creatinine 6.94. Blood sugars vary from 98 to 205. His serum calcium is 8.3. His most recent vancomycin random level was 20.4, which was done yesterday. ASSESSMENT: Mr. Morrow appears to be doing reasonably well. Certainly, the acute phase of this illness appears to be over. Apparently, plans are in progress to have him go to a detention facility at least temporarily. When he does reach that facility, we can continue to provide outpatient dialysis services at [facility] in [place]. Upon discharge, the patient, assuming discharge in the immediate future, will need to continue with IV vancomycin for the next week. That can be provided in the dialysis unit. Certainly if he is to be discharged in the next 24-48 hours, he should have a vancomycin random level done on March 28 or March 30 in anticipation of getting vancomycin at his next dialysis treatment. Otherwise, he should continue his routine medications. After 1 more week of IV vancomycin, he will be on amoxicillin 500 mg t.i.d. for an additional 1 month. No other immediate changes recommended.
--- NOTE | 2017-03-25 11:29 | Pharmacy Progress Note ---
Pharmacy Antibiotic Prog Note Date of Service Mar 25, 2017. Subjective The patient is currently receiving vancomycin 500-750 mg IV dosed empirically when vanco level is (or is expected to be) below 20. The patient is currently on day # 6 of vancomycin IV therapy for Ent. faecalis bacteremia. Plan is for vancomycin x 2 weeks, then amoxicillin x 4 weeks. Objective Height (Feet): 5 Height (Inches): 11.00 Weight (Kilograms): 80.700 Levels: Item Value Date Time Random Vancomycin Level 20.4 mcg/ml 03/24/17 0634 Previous dose hung 03/23 @1358 after hemodialysis was complete. Lab Results (24hrs): Test 03/24/17 17:13 03/24/17 20:18 03/25/17 06:16 Bedside Glucose 189 mg/dl (70-99) 205 mg/dl (70-99) Prothrombin Time 24.2 SECONDS (9.0-12.0) Prothromb Time International Ratio 2.2 (0.9-1.1) Sodium Level 130 mmol/L (136-145) Potassium Level 3.8 mmol/L (3.5-5.1) Chloride Level 96 mmol/L (98-107) Carbon Dioxide Level 25 mmol/L (21-32) Anion Gap 9.0 mmol/L (3-11) Blood Urea Nitrogen 58 mg/dl (7-18) Creatinine 6.94 mg/dl (0.60-1.40) Est Creatinine Clear Calc Drug Dose 8.4 ml/min Estimated GFR () 7.7 Estimated GFR (Non- 6.6 BUN/Creatinine Ratio 8.4 (10-20) Random Glucose 124 mg/dl (70-99) Calcium Level 8.3 mg/dl (8.5-10.1) Micro Results: 03/19 nasal swab- neg MRSA 03/19 urine- low count GPC, likely colonization 03/19 blood x2 Ent faecalis in both, pansensitive (vanc LAUREN=2) 03/22 blood x2 NGTD Recent Pertinent Medications Item Value Date Time Vancomycin HCl 260 ml @ 125 mls/hr 03/25/17 1600 500 mg/Sodium TODAY@1600/IV Chloride Vancomycin HCl 265 ml @ 125 mls/hr 03/23/17 1317 750 mg/Sodium NOW STAT/IV 03/23/17 1430 Chloride Assessment & Plan This drug level is: slightly Supratherapeutic. Will redose vancomycin 500 mg after today's hemodialysis. Continue dosing empirically when vanco level is less than 20.. Goal trough level estimate: between 15-20 mcg/mL. Random level has been ordered for: 03/27/17 with am labs (before next hemodialysis). Consider vancomycin 500-750 mg after each dialysis on discharge. I suggest checking pre-dialysis vancomycin level weekly. Pharmacy will continue to follow and will adjust dose/frequency as necessary. Thank you
[2017-03-25] MEDS ORDERED: VANCOMYCIN INJ 500 MG in SODIUM CHLORIDE 0.9% 250ML 250 ML IV SCH (16:00)
[2017-03-25] MEDS: WARFARIN SOD 2 MG TAB PO SCH (16:50)
--- NOTE | 2017-03-25 20:30 | Infectious Disease Progress Nt ---
Progress Note Date of Service Mar 25, 2017. Subjective Pt evaluation today including: conversation w/ patient, physical exam, chart review, lab review, review of studies, conversation w/ farm service consultant, review of inpatient medication list Patient offering no new complaints today. Appears to be tolerating vancomycin without apparent difficulty. Remains afebrile All Other Systems: Reviewed and Negative Medications Current Inpatient Medications Medications (Trade) Dose Ordered Sig/Summer Route Start Time Stop Time Status Last Admin Dose Admin Acetaminophen (Tylenol Tab) 650 mg Q4H PRN PO 03/19/17 13:00 04/18/17 12:59 03/25/17 08:59 650 MG Al Hydrox/Mg Hydrox/Simethicone (Maalox Max Susp) 15 ml Q4H PRN PO 03/19/17 13:00 04/18/17 12:59 Magnesium Hydroxide (Milk Of Magnesia Susp) 30 ml Q12H PRN PO 03/19/17 13:00 04/18/17 12:59 Ondansetron HCl (Zofran Inj) 4 mg Q6H PRN IV 03/19/17 13:00 04/18/17 12:59 Insulin Aspart (novoLOG ASPART) SLIDING SCALE If C... ACHS SC 03/19/17 16:00 04/18/17 15:59 03/25/17 19:30 8 UNITS Glucose (Glucose 40% Gel) 15-30 GRAMS 15 GRAMS... UD PRN PO 03/19/17 13:00 04/18/17 12:59 Glucose (Glucose Chew Tab) 4-8 Tablets 4 Tabl... UD PRN PO 03/19/17 13:00 04/18/17 12:59 Dextrose (Dextrose 50% 50ML Syringe) 25-50ML OF 50% DW IV FOR... UD PRN IV 03/19/17 13:00 04/18/17 12:59 Glucagon (Glucagon Inj) 1 mg UD PRN SQ 03/19/17 13:00 04/18/17 12:59 Aspirin (Ecotrin Tab) 81 mg QAM PO 03/20/17 09:00 04/19/17 08:59 03/25/17 08:47 81 MG Atorvastatin Calcium (Lipitor Tab) 80 mg HS PO 03/19/17 21:00 04/18/17 20:59 03/24/17 20:54 80 MG Calcium Carbonate (Tums Chew Tab) 500 mg TID PO 03/19/17 14:00 04/18/17 13:59 03/25/17 14:04 500 MG Carvedilol (Coreg Tab) 6.25 mg BID PO 03/19/17 21:00 04/18/17 20:59 03/24/17 20:53 6.25 MG Levothyroxine Sodium (Synthroid Tab) 175 mcg DAILYBB PO 03/20/17 06:00 04/19/17 05:59 03/25/17 05:48 175 MCG Multivitamins/ Minerals (Multivitamin W/ Minerals Tab) 1 tab QAM PO 03/20/17 09:00 04/19/17 08:59 03/25/17 08:46 1 TAB Pantoprazole Sodium (Protonix Tab) 40 mg QPM PO 03/19/17 21:00 04/18/17 20:59 03/24/17 20:54 40 MG Timolol Maleate (Timoptic 0.5% Oph Soln) 1 drops BID OPB 03/19/17 21:00 04/18/17 20:59 03/25/17 08:44 1 DROPS Travoprost (Travatan Z) 1 drops HS OPB 03/19/17 21:00 04/18/17 20:59 03/24/17 20:50 1 DROPS Acetaminophen 100 ml @ 400 mls/hr Q8H PRN IV 03/19/17 20:30 04/18/17 20:29 Warfarin Sodium (Coumadin Tab) 2 mg DAILY@1600 PO 03/22/17 16:00 04/18/17 15:59 03/25/17 16:50 2 MG Calcitriol (Rocaltrol Cap) 0.5 mcg TuThSa@0800 PO 03/23/17 08:00 04/22/17 07:59 03/25/17 08:48 0.5 MCG Vancomycin HCl (Consult) 1 ea UD PRN N/A 03/23/17 13:15 04/22/17 13:14 Enteral Nutritional Formula (Boost Glucose Control) 1 can TIDM PO 03/24/17 17:45 04/23/17 17:44 03/25/17 19:23 1 CAN Objective Vital Signs Date Time Temp Pulse Resp B/P (MAP) Pulse Ox O2 Delivery O2 Flow Rate FiO2 11/30/17 15:20 36.3 61 18 101/53 (69) 97 Room Air 03/25/17 13:40 36.5 61 112/50 (70) 03/25/17 13:00 64 112/50 03/25/17 12:45 62 107/49 03/25/17 12:30 61 100/45 03/25/17 12:15 63 97/42 03/25/17 12:00 68 108/60 03/25/17 11:45 63 110/48 03/25/17 11:30 54 90/47 03/25/17 11:15 65 114/47 03/25/17 11:00 62 107/51 03/25/17 10:45 59 106/48 03/25/17 10:30 63 93/53 03/25/17 10:15 59 104/54 03/25/17 10:00 60 108/47 03/25/17 09:45 62 91/45 03/25/17 09:30 61 112/49 03/25/17 09:15 61 112/49 03/25/17 09:05 36.6 60 102/48 (66) 03/25/17 07:58 36.4 61 18 125/57 (79) 94 Room Air 03/25/17 07:45 96 03/25/17 00:43 Room Air 03/24/17 22:57 36.3 61 18 111/63 (79) 97 Room Air 03/24/17 21:04 60 118/65 (82) Physical Exam General Appearance: WD/WN, no apparent distress Eyes: normal inspection, sclerae normal ENT: normal ENT inspection, pharynx normal Neck: supple, no adenopathy, trachea midline Respiratory/Chest: chest non-tender, lungs clear, normal breath sounds, no respiratory distress Cardiovascular: regular rate, rhythm, no gallop, + systolic murmur Abdomen: normal bowel sounds, non tender, soft, no organomegaly Extremities: non-tender, no calf tenderness Neurologic/Psychiatric: alert, oriented x 3 Skin: normal color, warm/dry, no rash Lymphatic: no adenopathy Laboratory Results Last 24 Hours Test 03/25/17 06:16 03/25/17 14:03 Prothrombin Time 24.2 SECONDS Prothromb Time International Ratio 2.2 Sodium Level 130 mmol/L Potassium Level 3.8 mmol/L Chloride Level 96 mmol/L Carbon Dioxide Level 25 mmol/L Anion Gap 9.0 mmol/L Blood Urea Nitrogen 58 mg/dl Creatinine 6.94 mg/dl Est Creatinine Clear Calc Drug Dose 8.4 ml/min Estimated GFR () 7.7 Estimated GFR (Non- 6.6 BUN/Creatinine Ratio 8.4 Random Glucose 124 mg/dl Calcium Level 8.3 mg/dl Bedside Glucose 106 mg/dl Assessment and Plan Enterococcal bacteremia in patient with ESRD on dilysis. Would favor 2 weeks of IV vancomycin, which could be given at dialysis, followed by 4 weeks of amoxicillin. Will discuss.
[2017-03-25] MEDS: ATORVASTATIN 20 MG TAB PO SCH (22:00)
[2017-03-25] MEDS: TRAVOPROST Z 0.004% OPH SOLN 2.5 ML BTL OPB SCH (22:00)
[2017-03-25] MEDS: PANTOprazole SOD 40 MG TAB PO SCH (22:01)
--- NOTE | 2017-03-25 22:54 | Progress Note ---
Subjective Date of Service: Mar 25, 2017. Subjective Pt evaluation today including: conversation w/ patient, physical exam, chart review, lab review, review of inpatient medication list Pain: denies cp, abd pain PO Intake: fair no issues overnight he largely denies most complaints Problem List Medical Problems: (1) Altered mental status Status: Chronic (2) Cellulitis of knee, right Status: Acute (3) Chronic kidney disease Status: Acute (4) Closed fracture of right proximal humerus Status: Acute (5) Dehydration Status: Acute (6) Dysphagia Status: Acute (7) Dysphasia Status: Acute (8) Elevated troponin Status: Acute (9) ESRD (end stage renal disease) Status: Acute (10) Fall Status: Acute (11) Fall Status: Acute (12) GI bleed Status: Acute (13) Hemorrhage of arteriovenous fistula Status: Acute (14) Hyperkalemia Status: Acute (15) Hypotension Status: Acute (16) Right leg pain Status: Acute (17) Shoulder pain, right Status: Acute (18) Supratherapeutic INR Status: Acute (19) Supratherapeutic INR Status: Acute Review of Systems Constitutional: No fever, No chills Respiratory: No cough, No shortness of breath Cardiac: No chest pain Abdomen: No pain, No nausea, No vomiting, No diarrhea Musculoskeletal: No joint pain Male : + problem reported (makes urine "here and there"), No dysuria Objective Vital Signs Date Time Temp Pulse Resp B/P (MAP) Pulse Ox O2 Delivery O2 Flow Rate FiO2 03/25/17 15:20 36.3 61 18 101/53 (69) 97 Room Air 03/25/17 13:40 36.5 61 112/50 (70) 03/25/17 13:00 64 112/50 03/25/17 12:45 62 107/49 03/25/17 12:30 61 100/45 03/25/17 12:15 63 97/42 03/25/17 12:00 68 108/60 03/25/17 11:45 63 110/48 03/25/17 11:30 54 90/47 03/25/17 11:15 65 114/47 03/25/17 11:00 62 107/51 03/25/17 10:45 59 106/48 03/25/17 10:30 63 93/53 03/25/17 10:15 59 104/54 03/25/17 10:00 60 108/47 03/25/17 09:45 62 91/45 03/25/17 09:30 61 112/49 03/25/17 09:15 61 112/49 03/25/17 09:05 36.6 60 102/48 (66) 03/25/17 07:58 36.4 61 18 125/57 (79) 94 Room Air 03/25/17 07:45 96 03/25/17 00:43 Room Air 03/24/17 22:57 36.3 61 18 111/63 (79) 97 Room Air 03/24/17 21:04 60 118/65 (82) Physical Exam General Appearance: no apparent distress ENT: pharynx normal, + pertinent finding (poor dentition) Neck: no JVD Respiratory/Chest: lungs clear, no respiratory distress, no accessory muscle use Cardiovascular: no gallop, no murmur, + irregularly irregular Abdomen: normal bowel sounds, non tender, soft, no organomegaly Extremities: no pedal edema, + pertinent finding (hemosiderin deposition/ severe stasis changes b/l shins) Neurologic/Psychiatric: alert Skin: + pertinent finding (AV fistula, left upper arm, without redness or swelling) Comments: skin tear, left medial jones - clean, no erythema Laboratory Results Last 24 Hours Test 03/24/17 20:18 03/25/17 06:16 03/25/17 14:03 Bedside Glucose 205 mg/dl 106 mg/dl Prothrombin Time 24.2 SECONDS Prothromb Time International Ratio 2.2 Sodium Level 130 mmol/L Potassium Level 3.8 mmol/L Chloride Level 96 mmol/L Carbon Dioxide Level 25 mmol/L Anion Gap 9.0 mmol/L Blood Urea Nitrogen 58 mg/dl Creatinine 6.94 mg/dl Est Creatinine Clear Calc Drug Dose 8.4 ml/min Estimated GFR () 7.7 Estimated GFR (Non- 6.6 BUN/Creatinine Ratio 8.4 Random Glucose 124 mg/dl Calcium Level 8.3 mg/dl Assessment and Plan 82 y/o male with a history of ESRD on HD, a-fib, ischemic cardiomyopathy with resulting chronic systolic CHF, dual-chamber AICD, CAD, carotid artery stenosis , HTN, DM II, hypothyroidism, gout and glaucoma who presented to the ED on with altered mental status and later found to have positive blood cultures for enterococcus. 1. enterococcus septicemia - cause unknown. Potential sources - gall bladder, urinary tract, GI tract, skin, etc. Most recent blood cx's negative suggesting sterility. Urine cx with only 6000 CFU of GPC but easily could have been the source. Plan for [facility] tomorrow to check prostate. Plan for 2 weeks of IV vancomycin, followed by 4 week course of oral amox. 2. metabolic encephalopathy 2nd to #1 - resolved. 3. ESRD on HD - HD //Wed; appreciate nephrology assistance. 4. hyperkalemia - resolved. 5. positive troponin - likely myocardial demand ischemia in setting of #1 above. 6. a. fib - continue daily warfarin and daily INR. Continue beta harry. 7. chronic systolic CHF - compensated at this time. Continue ASA, Coreg 6.25 mg PO BID, Lipitor 80 mg PO qd 8. T2DM - supplemental scale, BSGs ac/hs. 9. Hypothyroidism - -Continue Synthroid 175 mcg PO qd -TSH WNL 10. Glaucoma = Continue timolol and travatan drops dispo = SNF, possibly tomorrow Continued [facility] stay due to: multiple IV medications needed [facility]charge planning[facility]
[2017-03-26] VITALS (7 sets, daily range): BP systolic 92–128; BP diastolic 54–80; PULSE 60–74; TEMP 36.3–36.7; O2SAT 95–98
[2017-03-26] MEDS: LEVOTHYROXINE 175 MCG TAB PO SCH (06:01)
[2017-03-26 06:55] LABS: PROTHROMBIN TIME (PATIENT) 21.6 SECONDS (9.0-12.0)
[2017-03-26 07:32] LABS: CALCIUM 8.3 mg/dl (8.5-10.1); CREATININE 4.85 mg/dl (0.60-1.40); POTASSIUM 3.8 mmol/L (3.5-5.1)
[2017-03-26] MEDS: BOOST GLUCOSE CONTROL PO SCH ×3 (08:47→18:33)
[2017-03-26] MEDS: INSULIN ASPART 100 UNITS/ML 3 ML PEN SC SCH ×4 (08:53→21:26)
[2017-03-26] MEDS: TIMOLOL MALEATE 0.5% OP SOLN 5 ML BTL OPB SCH ×2 (09:02→21:18)
[2017-03-26] MEDS: ASPIRIN 81 MG ECTAB PO SCH (09:02)
[2017-03-26] MEDS: CEROVITE ADV FORMULA TAB PO SCH (09:02)
[2017-03-26] MEDS: CARVEDILOL 6.25 MG TAB PO SCH ×2 (09:03→21:23)
[2017-03-26] MEDS: CALCIUM CARBONATE 500 MG CHEWABLE PO SCH ×3 (09:03→21:18)
--- NOTE | 2017-03-26 10:37 | Nephrology Progress Note ---
Nephrology Progress Note Date of Service Mar 26, 2017. Chief Complaint ESRD Subjective No acute events overnight. Alphonse was resting comfortably in bed this morning. He denied any complaints. No fevers or chills. Appetite good. He tolerated HD yesterday, UF 2 kg. There were no complications with dialysis. Alphonse states that he feels ready for discharge. Review of Systems A complete review of systems was performed. Pertinent positives are noted above. All other systems are negative. Vital Signs Last 8 Hrs Date Time Temp Pulse Resp B/P (MAP) Pulse Ox O2 Delivery O2 Flow Rate FiO2 03/26/17 09:19 98 Room Air 03/26/17 09:01 74 126/73 (90) 03/26/17 08:15 98 Room Air 03/26/17 07:47 36.5 18 128/68 (88) 98 Room Air Last Recorded Weight Weight (Kilograms): 78.600 Physical Exam General Appearance: no apparent distress, + thin Head: normocephalic, atraumatic Eyes: normal inspection, sclerae normal ENT: normal ENT inspection, pharynx normal Neck: supple, + JVD Respiratory/Chest: lungs clear, no respiratory distress, no accessory muscle use Cardiovascular: regular rate, rhythm, + systolic murmur Abdomen/GI: non tender, soft Extremities/Musculoskelatal: + pertinent finding (LUE AVF, cool extremities and decreased capillary refill) Neurologic/Psych: alert, normal mood/affect Family History Breast cancer Hyperlipidemia Hypertension Myocardial infarction Social History Smokeless Tobacco Use: No Alcohol Use: none Drug Use: none Marital Status: Housing Status: retirement ([facility]) Occupation: retired Laboratory Results Past 24 Hours 03/26/17 06:30 Test 03/25/17 14:03 03/25/17 17:28 03/25/17 20:13 03/26/17 06:30 Bedside Glucose 106 mg/dl (70-99) 242 mg/dl (70-99) 187 mg/dl (70-99) Prothrombin Time 21.6 SECONDS (9.0-12.0) Prothromb Time International Ratio 2.0 (0.9-1.1) Anion Gap 8.0 mmol/L (3-11) Est Creatinine Clear Calc Drug Dose 12.1 ml/min Estimated GFR () 11.8 Estimated GFR (Non- 10.2 BUN/Creatinine Ratio 7.0 (10-20) Calcium Level 8.3 mg/dl (8.5-10.1) Test 03/26/17 08:01 Bedside Glucose 136 mg/dl (70-99) Allergies Coded Allergies: No Known Allergies (Unverified , 03/18/17) Medications Current Inpatient Medications Medications (Trade) Dose Ordered Sig/Summer Route Start Time Stop Time Status Last Admin Dose Admin Acetaminophen (Tylenol Tab) 650 mg Q4H PRN PO 03/19/17 13:00 04/18/17 12:59 03/25/17 08:59 650 MG Al Hydrox/Mg Hydrox/Simethicone (Maalox Max Susp) 15 ml Q4H PRN PO 03/19/17 13:00 04/18/17 12:59 Magnesium Hydroxide (Milk Of Magnesia Susp) 30 ml Q12H PRN PO 03/19/17 13:00 04/18/17 12:59 Ondansetron HCl (Zofran Inj) 4 mg Q6H PRN IV 03/19/17 13:00 04/18/17 12:59 Insulin Aspart (novoLOG ASPART) SLIDING SCALE If C... ACHS SC 03/19/17 16:00 04/18/17 15:59 03/26/17 08:53 4 UNITS Glucose (Glucose 40% Gel) 15-30 GRAMS 15 GRAMS... UD PRN PO 03/19/17 13:00 04/18/17 12:59 Glucose (Glucose Chew Tab) 4-8 Tablets 4 Tabl... UD PRN PO 03/19/17 13:00 04/18/17 12:59 Dextrose (Dextrose 50% 50ML Syringe) 25-50ML OF 50% DW IV FOR... UD PRN IV 03/19/17 13:00 04/18/17 12:59 Glucagon (Glucagon Inj) 1 mg UD PRN SQ 03/19/17 13:00 04/18/17 12:59 Aspirin (Ecotrin Tab) 81 mg QAM PO 03/20/17 09:00 04/19/17 08:59 03/26/17 09:02 81 MG Atorvastatin Calcium (Lipitor Tab) 80 mg HS PO 03/19/17 21:00 04/18/17 20:59 03/25/17 22:00 80 MG Calcium Carbonate (Tums Chew Tab) 500 mg TID PO 03/19/17 14:00 04/18/17 13:59 03/26/17 09:03 500 MG Carvedilol (Coreg Tab) 6.25 mg BID PO 03/19/17 21:00 04/18/17 20:59 03/26/17 09:03 6.25 MG Levothyroxine Sodium (Synthroid Tab) 175 mcg DAILYBB PO 03/20/17 06:00 04/19/17 05:59 03/26/17 06:01 175 MCG Multivitamins/ Minerals (Multivitamin W/ Minerals Tab) 1 tab QAM PO 03/20/17 09:00 04/19/17 08:59 03/26/17 09:02 1 TAB Pantoprazole Sodium (Protonix Tab) 40 mg QPM PO 03/19/17 21:00 04/18/17 20:59 03/25/17 22:01 40 MG Timolol Maleate (Timoptic 0.5% Oph Soln) 1 drops BID OPB 03/19/17 21:00 04/18/17 20:59 03/26/17 09:02 1 DROPS Travoprost (Travatan Z) 1 drops HS OPB 03/19/17 21:00 04/18/17 20:59 03/25/17 22:00 1 DROPS Acetaminophen 100 ml @ 400 mls/hr Q8H PRN IV 03/19/17 20:30 04/18/17 20:29 Warfarin Sodium (Coumadin Tab) 2 mg DAILY@1600 PO 03/22/17 16:00 04/18/17 15:59 03/25/17 16:50 2 MG Calcitriol (Rocaltrol Cap) 0.5 mcg TuThSa@0800 PO 03/23/17 08:00 04/22/17 07:59 03/25/17 08:48 0.5 MCG Vancomycin HCl (Consult) 1 ea UD PRN N/A 03/23/17 13:15 04/22/17 13:14 Enteral Nutritional Formula (Boost Glucose Control) 1 can TIDM PO 03/24/17 17:45 04/23/17 17:44 03/26/17 08:47 1 CAN Impression (1) End stage renal disease (2) Anemia (3) Hypertension (4) Altered mental status (5) Hyperkalemia Mr. Alphonse Morrow is an 82-year-old gentlemen with significant vascular disease including PAD and carotid stenosis as well as CAD, an ischemic cardiomyopathy, ESRD on HD, AICD with biV pacer, atrial fibrillation, history of recurrent CHF, HTN, DM II, hypothyroidism who was admitted with sepsis and encephalopathy due to enterococcus bacteremia. Cultures cleared with therapy. ID consult reviewed. Plan of care to continue treatment with 2 weeks of vancomycin followed by oral amoxicillin. Recommendations Continue HD per TTS schedule. I will coordinate and Rx tomorrow's treatment. Volume status and metabolic profile are currently appropriate. Will continue to monitor pre-HD vanco troughs. Vancomycin and monitoring to be arranged at dialysis upon discharge. Medications are appropriately dosed for IHD. Please keep me posted regarding disposition planning. At this time, my understanding is that we are awaiting SNF placement.
--- NOTE | 2017-03-26 14:58 | Infectious Disease Progress Nt ---
Progress Note Date of Service Mar 26, 2017. Subjective Pt evaluation today including: conversation w/ patient, physical exam, chart review, lab review, review of studies, conversation w/ hematology oncology consultant, review of inpatient medication list Patient offers no new complaints today. Anticipating transfer to [facility]. Follow-up blood cultures remain negative. Tolerating vancomycin. All Other Systems: Reviewed and Negative Medications Current Inpatient Medications Medications (Trade) Dose Ordered Sig/Summer Route Start Time Stop Time Status Last Admin Dose Admin Acetaminophen (Tylenol Tab) 650 mg Q4H PRN PO 03/19/17 13:00 04/18/17 12:59 03/25/17 08:59 650 MG Al Hydrox/Mg Hydrox/Simethicone (Maalox Max Susp) 15 ml Q4H PRN PO 03/19/17 13:00 04/18/17 12:59 Magnesium Hydroxide (Milk Of Magnesia Susp) 30 ml Q12H PRN PO 03/19/17 13:00 04/18/17 12:59 Ondansetron HCl (Zofran Inj) 4 mg Q6H PRN IV 03/19/17 13:00 04/18/17 12:59 Insulin Aspart (novoLOG ASPART) SLIDING SCALE If C... ACHS SC 03/19/17 16:00 04/18/17 15:59 03/26/17 13:30 5 UNITS Glucose (Glucose 40% Gel) 15-30 GRAMS 15 GRAMS... UD PRN PO 03/19/17 13:00 04/18/17 12:59 Glucose (Glucose Chew Tab) 4-8 Tablets 4 Tabl... UD PRN PO 03/19/17 13:00 04/18/17 12:59 Dextrose (Dextrose 50% 50ML Syringe) 25-50ML OF 50% DW IV FOR... UD PRN IV 03/19/17 13:00 04/18/17 12:59 Glucagon (Glucagon Inj) 1 mg UD PRN SQ 03/19/17 13:00 04/18/17 12:59 Aspirin (Ecotrin Tab) 81 mg QAM PO 03/20/17 09:00 04/19/17 08:59 03/26/17 09:02 81 MG Atorvastatin Calcium (Lipitor Tab) 80 mg HS PO 03/19/17 21:00 04/18/17 20:59 03/25/17 22:00 80 MG Calcium Carbonate (Tums Chew Tab) 500 mg TID PO 03/19/17 14:00 04/18/17 13:59 03/26/17 13:30 500 MG Carvedilol (Coreg Tab) 6.25 mg BID PO 03/19/17 21:00 04/18/17 20:59 03/26/17 09:03 6.25 MG Levothyroxine Sodium (Synthroid Tab) 175 mcg DAILYBB PO 03/20/17 06:00 04/19/17 05:59 03/26/17 06:01 175 MCG Multivitamins/ Minerals (Multivitamin W/ Minerals Tab) 1 tab QAM PO 03/20/17 09:00 04/19/17 08:59 03/26/17 09:02 1 TAB Pantoprazole Sodium (Protonix Tab) 40 mg QPM PO 03/19/17 21:00 04/18/17 20:59 03/25/17 22:01 40 MG Timolol Maleate (Timoptic 0.5% Oph Soln) 1 drops BID OPB 03/19/17 21:00 04/18/17 20:59 03/26/17 09:02 1 DROPS Travoprost (Travatan Z) 1 drops HS OPB 03/19/17 21:00 04/18/17 20:59 03/25/17 22:00 1 DROPS Acetaminophen 100 ml @ 400 mls/hr Q8H PRN IV 03/19/17 20:30 04/18/17 20:29 Warfarin Sodium (Coumadin Tab) 2 mg DAILY@1600 PO 03/22/17 16:00 04/18/17 15:59 03/25/17 16:50 2 MG Calcitriol (Rocaltrol Cap) 0.5 mcg TuThSa@0800 PO 03/23/17 08:00 04/22/17 07:59 03/25/17 08:48 0.5 MCG Vancomycin HCl (Consult) 1 ea UD PRN N/A 03/23/17 13:15 04/22/17 13:14 Enteral Nutritional Formula (Boost Glucose Control) 1 can TIDM PO 03/24/17 17:45 04/23/17 17:44 03/26/17 13:25 1 CAN Objective Vital Signs Date Time Temp Pulse Resp B/P (MAP) Pulse Ox O2 Delivery O2 Flow Rate FiO2 03/26/17 12:35 36.7 61 18 120/80 (93) 98 Room Air 03/26/17 09:19 98 Room Air 03/26/17 09:01 74 126/73 (90) 03/26/17 08:15 98 Room Air 03/26/17 07:47 36.5 18 128/68 (88) 98 Room Air 03/25/17 23:45 Room Air 03/25/17 23:00 36.4 58 18 127/69 (88) 98 Room Air 03/25/17 22:00 62 118/60 (79) 03/25/17 17:00 Room Air 03/25/17 15:20 36.3 61 18 101/53 (69) 97 Room Air Physical Exam General Appearance: WD/WN, no apparent distress Eyes: normal inspection, sclerae normal ENT: normal ENT inspection, pharynx normal Neck: supple, no adenopathy, trachea midline Respiratory/Chest: lungs clear, normal breath sounds, no respiratory distress Cardiovascular: regular rate, rhythm, no gallop, + systolic murmur Abdomen: normal bowel sounds, non tender, soft, no organomegaly Extremities: non-tender, no calf tenderness Neurologic/Psychiatric: alert, oriented x 3 Skin: normal color, no rash Lymphatic: no adenopathy Laboratory Results Last 24 Hours Test 03/25/17 17:28 03/25/17 20:13 03/26/17 06:30 03/26/17 08:01 Bedside Glucose 242 mg/dl 187 mg/dl 136 mg/dl Prothrombin Time 21.6 SECONDS Prothromb Time International Ratio 2.0 Sodium Level 134 mmol/L Potassium Level 3.8 mmol/L Chloride Level 96 mmol/L Carbon Dioxide Level 30 mmol/L Anion Gap 8.0 mmol/L Blood Urea Nitrogen 34 mg/dl Creatinine 4.85 mg/dl Est Creatinine Clear Calc Drug Dose 12.1 ml/min Estimated GFR () 11.8 Estimated GFR (Non- 10.2 BUN/Creatinine Ratio 7.0 Random Glucose 115 mg/dl Calcium Level 8.3 mg/dl Assessment and Plan Enterococcal bacteremia in patient with ESRD on dilysis. Would give 2 weeks of IV vancomycin, which could be given at dialysis, followed by 4 weeks of amoxicillin. Discussed with hospitalist service
[2017-03-26] MEDS: WARFARIN SOD 2 MG TAB PO SCH (16:21)
[2017-03-26] MEDS: TRAVOPROST Z 0.004% OPH SOLN 2.5 ML BTL OPB SCH (21:17)
[2017-03-26] MEDS: ATORVASTATIN 20 MG TAB PO SCH (21:19)
[2017-03-26] MEDS: PANTOprazole SOD 40 MG TAB PO SCH (21:20)
--- NOTE | 2017-03-26 21:33 | Progress Note ---
Subjective Date of Service: Mar 26, 2017. Subjective Pt evaluation today including: conversation w/ patient, conversation w/ family ( at bedside), physical exam, chart review, lab review, review of inpatient medication list Pain: none voiced PO Intake: fair no issues overnight anxious to get "out of the hospital" daughter flying in from out of town today Problem List Medical Problems: (1) Altered mental status Status: Chronic (2) Cellulitis of knee, right Status: Acute (3) Chronic kidney disease Status: Acute (4) Closed fracture of right proximal humerus Status: Acute (5) Dehydration Status: Acute (6) Dysphagia Status: Acute (7) Dysphasia Status: Acute (8) Elevated troponin Status: Acute (9) ESRD (end stage renal disease) Status: Acute (10) Fall Status: Acute (11) Fall Status: Acute (12) GI bleed Status: Acute (13) Hemorrhage of arteriovenous fistula Status: Acute (14) Hyperkalemia Status: Acute (15) Hypotension Status: Acute (16) Right leg pain Status: Acute (17) Shoulder pain, right Status: Acute (18) Supratherapeutic INR Status: Acute (19) Supratherapeutic INR Status: Acute Review of Systems Constitutional: No fever Respiratory: No shortness of breath Cardiac: No chest pain Abdomen: No pain, No diarrhea Objective Vital Signs Date Time Temp Pulse Resp B/P (MAP) Pulse Ox O2 Delivery O2 Flow Rate FiO2 03/26/17 16:20 Room Air 03/26/17 15:06 36.3 63 18 92/54 (67) 97 Room Air 03/26/17 12:35 36.7 61 18 120/80 (93) 98 Room Air 03/26/17 09:19 98 Room Air 03/26/17 09:01 74 126/73 (90) 03/26/17 08:15 98 Room Air 03/26/17 07:47 36.5 18 128/68 (88) 98 Room Air 03/25/17 23:45 Room Air 03/25/17 23:00 36.4 58 18 127/69 (88) 98 Room Air 03/25/17 22:00 62 118/60 (79) Physical Exam General Appearance: no apparent distress, + thin ENT: + pertinent finding (poor dentition, no lesions) Neck: no JVD Respiratory/Chest: lungs clear, no respiratory distress, no accessory muscle use Cardiovascular: regular rate, rhythm, no gallop Abdomen: normal bowel sounds, non tender, soft, no organomegaly Extremities: no pedal edema Neurologic/Psychiatric: alert, + pertinent finding (mild confusion) Skin: + pertinent finding (hemosiderin deposition both legs; slight skin tear, left jones, clean; stage 2 pressure/sacral ulcer without surrouding cellulitis ) Comments: ELANA - prostate enlarged, not boggy, not tender, no gross lesions in the rectum, stool brown Laboratory Results Last 24 Hours Test 03/26/17 06:30 03/26/17 08:01 03/26/17 16:49 03/26/17 20:21 Prothrombin Time 21.6 SECONDS Prothromb Time International Ratio 2.0 Sodium Level 134 mmol/L Potassium Level 3.8 mmol/L Chloride Level 96 mmol/L Carbon Dioxide Level 30 mmol/L Anion Gap 8.0 mmol/L Blood Urea Nitrogen 34 mg/dl Creatinine 4.85 mg/dl Est Creatinine Clear Calc Drug Dose 12.1 ml/min Estimated GFR () 11.8 Estimated GFR (Non- 10.2 BUN/Creatinine Ratio 7.0 Random Glucose 115 mg/dl Calcium Level 8.3 mg/dl Bedside Glucose 136 mg/dl 132 mg/dl 183 mg/dl Assessment and Plan 82 y/o male with a history of ESRD on HD, a-fib, ischemic cardiomyopathy with resulting chronic systolic CHF, dual-chamber AICD, CAD, carotid artery stenosis , HTN, DM II, hypothyroidism, gout and glaucoma who presented to the ED on with altered mental status and later found to have positive blood cultures for enterococcus. 1. enterococcus septicemia - cause unknown. Potential sources - gall bladder, urinary tract, GI tract, skin, etc. Most recent blood cx's negative suggesting sterility. Urine cx with only 6000 CFU of GPC but easily could have been the source. ELANA today w/o evidence of prostatitis. Plan for 2 weeks of IV vancomycin, followed by 4 week course of oral amox. 2. metabolic encephalopathy 2nd to #1 - resolved. I spoke with today - he may have mild cognitive impairment based on her accounts. 3. ESRD on HD - HD Tu//Wed; appreciate nephrology assistance. 4. hyperkalemia - resolved. 5. positive troponin - likely myocardial demand ischemia in setting of #1 above. 6. a. fib - continue daily warfarin and daily INR. Continue beta harry. 7. chronic systolic CHF - compensated at this time. Continue ASA, Coreg 6.25 mg PO BID, Lipitor 80 mg PO qd 8. T2DM - supplemental scale, BSGs ac/hs. 9. Hypothyroidism - -Continue Synthroid 175 mcg PO qd -TSH WNL 10. Glaucoma = Continue timolol and travatan drops 11. mild macrocytic anemia - chronic, stable, most recent TSH/B12/Folate all wnl. early/smoldering MDS? SNF auth has been obtained will d/c to [facility] tomorrow after hemodialysis and his vancomycin dose Continued [facility] stay due to: multiple IV medications needed [facility]charge planning: prison facility
[2017-03-27] VITALS (22 sets, daily range): BP systolic 94–157; BP diastolic 38–97; PULSE 58–68; TEMP 36.4–36.8; O2SAT 98–99
[2017-03-27] MEDS: LEVOTHYROXINE 175 MCG TAB PO SCH (05:28)
[2017-03-27] MEDS: BOOST GLUCOSE CONTROL PO SCH ×3 (07:36→18:26)
[2017-03-27] MEDS: CALCIUM CARBONATE 500 MG CHEWABLE PO SCH ×3 (07:39→20:59)
[2017-03-27] MEDS: CALCITRIOL 0.25 MCG CAP PO SCH (07:39)
[2017-03-27] MEDS: INSULIN ASPART 100 UNITS/ML 3 ML PEN SC SCH ×4 (07:40→21:02)
[2017-03-27] MEDS: TIMOLOL MALEATE 0.5% OP SOLN 5 ML BTL OPB SCH ×2 (07:40→20:57)
[2017-03-27] MEDS: CARVEDILOL 6.25 MG TAB PO SCH ×2 (07:44→20:58)
[2017-03-27 08:11] LABS: HEMATOCRIT 40.2 % (42-52); MEAN CELL VOLUME 109.8 fL (80-100); MEAN CORPUSCULAR HEMOGLOBIN 36.9 pg (25-34); MEAN CORPUSCULAR HGB CONC 33.6 g/dl (32-36); MEAN PLATELET VOLUME 10.4 fL (7.4-10.4); PLATELET COUNT 209 K/uL (130-400); RED BLOOD COUNT 3.66 M/uL (4.7-6.1); WHITE BLOOD COUNT 8.05 K/uL (4.8-10.8)
[2017-03-27 08:18] LABS: INR 2.1 (0.9-1.1); PROTHROMBIN TIME (PATIENT) 22.9 SECONDS (9.0-12.0)
[2017-03-27 08:56] LABS: BUN/CREATININE RATIO 7.8 (10-20); CALCIUM 8.8 mg/dl (8.5-10.1); CREATININE 6.19 mg/dl (0.60-1.40); POTASSIUM 4.2 mmol/L (3.5-5.1)
[2017-03-27] MEDS ORDERED: AMX500 PO (11:20)
[2017-03-27] MEDS ORDERED: OXYC-57 PO (11:20)
[2017-03-27] MEDS ORDERED: WARF1TAB PO (11:20)
[2017-03-27] MEDS ORDERED: RCL25 PO (11:20)
[2017-03-27] MEDS ORDERED: VANC1INJ94 IV (11:20)
[2017-03-27] MEDS ORDERED: NUTR-31 PO (11:20)
--- NOTE | 2017-03-27 11:31 | Discharge Instructions ---
Discharge Instructions Date of Service Mar 27, 2017. Admission Reason for Admission: Altered Mental Status;Hyperkalemia Discharge Discharge Diagnosis / Problem: enterococcal bacteremia Discharge Goals Goal(s): Learn about illness, Diagnostic testing, Therapeutic intervention Activity Recommendations Activity Level: Assistance Required Therapies: Physical Therapy, Occupational Therapy . Additional Information Patient informed of condition: Yes Advance Directives: Yes DNR: No Level of Care: Skilled Communicable Disease: No Prognosis: Stable Oxygen at (LPM): none Valle Catheter: No Instructions / Follow-Up Instructions / Follow-Up From Dr. Gutierrez - 1. Antibiotic regimen - IV vancomycin x 8 more days - to be given on hemodialysis days only. Last dose on 04/03/17. Start amoxicillin by mouth on 04/04/17. Take for 28 days. See discharge medication list for dosing details. 2. hemodialysis - next scheduled session is 03/30/17, at [facility]. 3. see Dr. Hussein De Jesus, infectious disease, in 1-2 weeks. 4. see [facility] in [place] for your left heel ulcer as this may need debridement. Optimally should be seen within 5 days if possible. Current Hospital Diet Patient's current hospital diet: Renal Diet, Diabetes Type 2 Diet Discharge Diet Recommended Diet: Low Sodium Diet (2gm Na), Diabetes Type 2 Diet, Renal Diet Procedures Procedures Performed: 1. head CT 2. echocardiogram - no evidence of endocarditis. Pending Studies Studies pending at discharge: no Physician Orders On Transfer Dressing Changes: 1. stage III pressure ulcer, left heel - Aquacel Ag and Optifoam. Change every 2 days. 2. skin tear/ulcer, left leg mid jones - Aquacel Ag and Optifoam. Change every 2 days. 2. moisture breakdown on coccyx, measures 2.5 x 0.5 cm. Optifoam - change daily and PRN. IV Therapy: Mr. Morrow will receive IV vancomycin on hemodialysis days only at the dialysis center. To be coordinated by the nephrology team (Dr. Vamsi Ramirez). Vital Signs: per routine Weigh: daily Additional Orders: 1. fingerstick blood sugar checks before meals and at bedtime; if fingersticks are consistently > 150-175 please notify medical records coder. 2. vancomycin trough level - early 03/30/17 - report results to his placement manager as well as the dialysis center ([facility] in [place]). 3. vancomycin trough level - early AM, 04/01/17 - also report results to the dialysis center. 4. vancomycin trough level - early Wednesday AM, 04/03/17 - report results to dialysis center. POLST Discussion: Not Applicable Laboratory Results Hemoglobin A1c Test 03/19/17 12:50 Range/Units Estimated Average Glucose 140 mg/dl Hemoglobin A1c 6.5 H 4.5-5.6 % Medical Emergencies . Who to Call and When: Medical Emergencies: If at any time you feel your situation is an emergency, please call 911 immediately. . Non-Emergent Contact Non-Emergency issues call your: [place] Call Non-Emergent contact if: temperature is above 100.5, you have any medication questions . . "Provider Documentation" section prepared by Vivek Gutierrez. . Core Measure Problem Core Measures: None
--- NOTE | 2017-03-27 12:13 | Dialysis Progress Note ---
Hemodialysis Note Date of Service Mar 27, 2017. Chief Complaint ESRD Subjective Alphonse was seen and evaluated during hemodialysis this morning. He was tolerating hemodialysis well. Overall, Alphonse felt well and had no complaints. He denied fevers or chills. He denies shortness of breath. Blood pressure was appropriate. Qb normal. I discussed the plan of care with Dr. Culver. I also reviewed the plan of care with nursing staff at [facility] dialysis unit in [place]. Orders have been placed to continue vancomycin as an outpatient at discharge. Review of Systems A complete review of systems was performed. Pertinent positives are noted above. All other systems are negative. Vital Signs Last 8 Hrs Date Time Temp Pulse Resp B/P (MAP) Pulse Ox O2 Delivery O2 Flow Rate FiO2 03/27/17 11:45 63 129/58 03/27/17 11:30 63 145/73 03/27/17 11:15 63 145/73 03/27/17 11:00 60 136/63 03/27/17 10:45 63 113/57 03/27/17 10:30 60 136/72 03/27/17 10:15 60 144/38 03/27/17 10:00 61 134/57 03/27/17 09:45 60 115/61 03/27/17 09:18 36.4 60 131/59 (83) 03/27/17 07:38 36.8 58 16 135/97 (110) 99 Room Air 03/27/17 07:12 Room Air Last Recorded Weight Weight (Kilograms): 80.700 Physical Exam General Appearance: no apparent distress, + thin Head: normocephalic, atraumatic Eyes: normal inspection, sclerae normal ENT: normal ENT inspection, pharynx normal Neck: supple, no JVD Respiratory/Chest: lungs clear, no respiratory distress, no accessory muscle use Cardiovascular: regular rate, rhythm, no gallop, no murmur Abdomen/GI: non tender, soft Extremities/Musculoskelatal: normal inspection, no pedal edema, + pertinent finding (AVF with Qb appropriate) Neurologic/Psych: alert, normal mood/affect Social History Smokeless Tobacco Use: No Alcohol Use: none Drug Use: none Marital Status: Housing Status: jail ([facility]) Occupation: retired Laboratory Results Past 24 Hours 03/27/17 07:46 03/27/17 07:46 Test 03/26/17 16:49 03/26/17 20:21 03/27/17 07:30 03/27/17 07:46 Bedside Glucose 132 mg/dl (70-99) 183 mg/dl (70-99) 108 mg/dl (70-99) Red Blood Count 3.66 M/uL (4.7-6.1) Mean Corpuscular Volume 109.8 fL (80-100) Mean Corpuscular Hemoglobin 36.9 pg (25-34) Mean Corpuscular Hemoglobin Concent 33.6 g/dl (32-36) RDW Standard Deviation 60.7 fL (36.4-46.3) RDW Coefficient of Variation 15.2 % (11.5-14.5) Mean Platelet Volume 10.4 fL (7.4-10.4) Prothrombin Time 22.9 SECONDS (9.0-12.0) Prothromb Time International Ratio 2.1 (0.9-1.1) Anion Gap 9.0 mmol/L (3-11) Est Creatinine Clear Calc Drug Dose 9.5 ml/min Estimated GFR () 8.8 Estimated GFR (Non- 7.6 BUN/Creatinine Ratio 7.8 (10-20) Calcium Level 8.8 mg/dl (8.5-10.1) Random Vancomycin Level 19.8 mcg/ml Allergies Coded Allergies: No Known Allergies (Unverified , 03/18/17) Medications Current Inpatient Medications Medications (Trade) Dose Ordered Sig/Summer Route Start Time Stop Time Status Last Admin Dose Admin Acetaminophen (Tylenol Tab) 650 mg Q4H PRN PO 03/19/17 13:00 04/18/17 12:59 03/25/17 08:59 650 MG Al Hydrox/Mg Hydrox/Simethicone (Maalox Max Susp) 15 ml Q4H PRN PO 03/19/17 13:00 04/18/17 12:59 Magnesium Hydroxide (Milk Of Magnesia Susp) 30 ml Q12H PRN PO 03/19/17 13:00 04/18/17 12:59 Ondansetron HCl (Zofran Inj) 4 mg Q6H PRN IV 03/19/17 13:00 04/18/17 12:59 Insulin Aspart (novoLOG ASPART) SLIDING SCALE If C... ACHS SC 03/19/17 16:00 04/18/17 15:59 03/26/17 21:26 1 UNITS Glucose (Glucose 40% Gel) 15-30 GRAMS 15 GRAMS... UD PRN PO 03/19/17 13:00 04/18/17 12:59 Glucose (Glucose Chew Tab) 4-8 Tablets 4 Tabl... UD PRN PO 03/19/17 13:00 04/18/17 12:59 Dextrose (Dextrose 50% 50ML Syringe) 25-50ML OF 50% DW IV FOR... UD PRN IV 03/19/17 13:00 04/18/17 12:59 Glucagon (Glucagon Inj) 1 mg UD PRN SQ 03/19/17 13:00 04/18/17 12:59 Aspirin (Ecotrin Tab) 81 mg QAM PO 03/20/17 09:00 04/19/17 08:59 03/26/17 09:02 81 MG Atorvastatin Calcium (Lipitor Tab) 80 mg HS PO 03/19/17 21:00 04/18/17 20:59 03/26/17 21:19 80 MG Calcium Carbonate (Tums Chew Tab) 500 mg TID PO 03/19/17 14:00 04/18/17 13:59 03/27/17 07:39 500 MG Carvedilol (Coreg Tab) 6.25 mg BID PO 03/19/17 21:00 04/18/17 20:59 03/26/17 21:23 6.25 MG Levothyroxine Sodium (Synthroid Tab) 175 mcg DAILYBB PO 03/20/17 06:00 04/19/17 05:59 03/27/17 05:28 175 MCG Multivitamins/ Minerals (Multivitamin W/ Minerals Tab) 1 tab QAM PO 03/20/17 09:00 04/19/17 08:59 03/26/17 09:02 1 TAB Pantoprazole Sodium (Protonix Tab) 40 mg QPM PO 03/19/17 21:00 04/18/17 20:59 03/26/17 21:20 40 MG Timolol Maleate (Timoptic 0.5% Oph Soln) 1 drops BID OPB 03/19/17 21:00 04/18/17 20:59 03/27/17 07:40 1 DROPS Travoprost (Travatan Z) 1 drops HS OPB 03/19/17 21:00 04/18/17 20:59 03/26/17 21:17 1 DROPS Acetaminophen 100 ml @ 400 mls/hr Q8H PRN IV 03/19/17 20:30 04/18/17 20:29 Warfarin Sodium (Coumadin Tab) 2 mg DAILY@1600 PO 03/22/17 16:00 04/18/17 15:59 03/26/17 16:21 2 MG Calcitriol (Rocaltrol Cap) 0.5 mcg TuThSa@0800 PO 03/23/17 08:00 04/22/17 07:59 03/27/17 07:39 0.5 MCG Vancomycin HCl (Consult) 1 ea UD PRN N/A 03/23/17 13:15 04/22/17 13:14 Enteral Nutritional Formula (Boost Glucose Control) 1 can TIDM PO 03/24/17 17:45 04/23/17 17:44 03/26/17 18:33 1 CAN Vancomycin HCl 500 mg/Sodium Chloride 260 ml @ 125 mls/hr TODAY@1400 IV 03/27/17 14:00 03/27/17 16:05 Impression (1) End stage renal disease (2) Anemia (3) Hypertension (4) Altered mental status (5) Hyperkalemia Mr. Alphonse Morrow is an 82-year-old gentlemen with significant vascular disease including PAD and carotid stenosis as well as CAD, as well as an ischemic cardiomyopathy, ESRD on HD, AICD with biV pacer, atrial fibrillation, history of recurrent CHF, HTN, DM II, hypothyroidism who was admitted with sepsis and encephalopathy due to enterococcus bacteremia. Cultures cleared with therapy. ID consult reviewed. Plan of care to continue treatment with 2 weeks of vancomycin followed by oral amoxicillin. Recommendations HD today, UF goal 2 kg. 3 K bath. Qb appropriate. Resume TTS schedule at [facility] at discharge. Orders to continue vancomycin as an outpatient have been placed at the dialysis unit, starting Wednesday - 750 mg post treatment. I discussed the plan of care with Dr. Culver and nursing staff at the dialysis unit. Medications are appropriately dosed for IHD.
[2017-03-27] MEDS ORDERED: VANCOMYCIN INJ 500 MG in SODIUM CHLORIDE 0.9% 250ML 250 ML IV SCH (14:00)
[2017-03-27] MEDS: ASPIRIN 81 MG ECTAB PO SCH (14:13)
[2017-03-27] MEDS: CEROVITE ADV FORMULA TAB PO SCH (14:13)
[2017-03-27] MEDS: WARFARIN SOD 2 MG TAB PO SCH (16:30)
--- NOTE | 2017-03-27 17:47 | Discharge Summary ---
Discharge Summary Date of Service Mar 27, 2017. Discharge Summary Admission Date: Mar 19, 2017 at 12:59 Discharge Date: Mar 28, 2017 Discharge Disposition: assisted facility ([facility] ) Principal Diagnosis: enterococcal septicemia/bacteremia Problems/Secondary Diagnoses: Acute medical problems: 1. hyperkalemia - resolved 2. positive troponin likely 2nd to myocardial demand ischemia 3. acute/chronic systolic CHF - resolved 4. metabolic encephalopathy 2nd to enterococcal septicemia - resolved 5. stage 3 pressure ulcer, left heel 6. skin tear/ulcer - left leg mid-jones 7. sacral decubitus ulcer 8. hyponatremia Chronic medical problems: 1. a-fib on chronic coumadin 2. ischemic cardiomyopathy with resulting chronic systolic CHF 3. dual-chamber AICD 4. CAD 5. carotid artery stenosis 6. HTN 7. T2DM 8. hypothyroidism 9. gout 10. glaucoma 11. question of cognitive dysfunction/early dementia 12. chronic macrocytic anemia - uncertain etiology Procedures: 1. head CT - chronic right frontal encephalomalacia otherwise no ICH or acute stroke 2. echocardiogram - * -- Conclusions -- * 1. Moderately dilated LV with mild concentric LVH. * 2. Severe global LV dysfunction. EF 20-25%. * 3. Normal RV size with moderate RV dysfunction. * 4. Mild aortic regurgitation. * 5. No valvular vegetations noted. * 6. Normal estimated RA and PA pressures. * 7. Compared with prior study on 05/05/2016: No significant changes. 3. pacemaker interrogation Consultations: 1. nephrology - Rose Galo MD 2. cardiology - Manuel Mcclain MD 3. critical care - Jim Perez DO 4. PT, OT 5. wound care 6. infectious disease - Hussein De Jesus MD Medication Reconciliation New Medications: Amoxicillin (Amoxicillin) 500 Mg Cap 500 MG PO DIRECTED for 28 Days, #60 CAP 0 Refills start Tuesday, April 04, 2017 and continue for 28 days. Take as follows - Wednesday/Wednesday/Wednesday/Wednesday - take 500mg po QAM. Wednesday//Wednesday - take 500mg po QAM (prior to dialysis) and then 500mg po Qafternoon (after dialysis). Vancomycin HCl in Sodium Chlor (VANCOMYCIN in NSS) 1 Inj Inj 500 MG IV UD for 8 Days, #4 BAG 0 Refills Will be given on hemodialysis days only. To be coordinated by the nephrology team at the dialysis center. Calcitriol (Calcitriol) 0.25 Mcg Cap 0.5 MCG PO TuThSa@0800, #12 CAP 11 Refills Changed Medications: Nutritional Supplements (Boost High Protein) 1 Liq Liq 1 CAN PO BIDM, #60 CAN 0 Refills (Changed from: QAM; Refills: ) Oxycodone/Acetaminophen 5MG/325MG (Percocet 5MG/325MG) Tab 1 TABLET PO Q6H PRN for Pain, #30 TAB 0 Refills (Changed from: 1-2 TABLET; Q4H; Refills: ) PAIN Warfarin Sodium (Coumadin) 1 Mg Tab 2 MG PO QPM for 30 Days, #30 TAB 5 Refills (Changed from: 1 TAB) Continued Medications: Acetaminophen (Tylenol) 325 Mg Tab 650 MG PO Q4H, TAB Allopurinol (Zyloprim) 300 Mg Tab 0.5 TAB PO QAM, TAB Amoxicillin (Amoxil) 500 Mg Cap 2000 MG PO UD, #21 CAP prior to dental appts Aspirin (Aspirin Ec) 81 Mg Tab 81 MG PO QAM Atorvastatin (Lipitor) 80 Mg Tab 80 MG PO HS, TAB Calcium Carbonate (Tums) 500 Mg Chew 1 TAB PO TID Carvedilol (Coreg) 6.25 Mg Tab 1 TAB PO BID for 90 Days, #180 TAB 1 Refill Levothyroxine Sodium (Levothyroxine Sodium) 175 Mcg Tab 1 TAB PO QAM for 90 Days, #90 TAB 3 Refills Multivitamins/Minerals (Mvi With Minerals) Tab 1 TAB PO QAM, TAB Ocuvite Preservision (Ocuvite Preservision) 1 Tab Tab 1 TAB PO QAM, TAB TAKES ANY TIME Pantoprazole (Protonix) 40 Mg Tab 40 MG PO QPM, #30 TAB TAKES ANY TIME DUING THE DAY Timolol Maleate (Timolol 0.5% Oph Soln 15 Ml) 15 Ml Soln 1 DROP OPB BID Travoprost (Travatan Z) 0.004 % Tuan 1 DROPS OPB HS, #2.5 ML 2 Refills Discontinued Medications: Guaifenesin (Siltussin Sa) 100 Mg/5 Ml Syp 5 ML PO Q4H PRN for business control specialist Exam Physical Exam: General Appearance: no apparent distress, + thin ENT: + pertinent finding (very poor dentition ) Neck: no JVD Respiratory/Chest: lungs clear, no respiratory distress, no accessory muscle use Cardiovascular: regular rate, rhythm, no gallop, no murmur Abdomen / GI: normal bowel sounds, non tender, soft, no organomegaly Extremities: no pedal edema, + pertinent finding (AV fistula, left arm, with +thrill & bruit; clubbing of fingernails; multiple fingernails left hand with onychomycosis; no synovitis of any joint of either hand) Neurologic/Psychiatric: alert Skin: + pertinent finding (stage 1-2 sacral decubitus ulcer, no cellulitis; left heel - stage 3 ulcer with area of ecchymotic skin at the superior periphery , minimal drainage; ulceration medial malleolus, left ankle; skin tear, left leg mid-jones - clean; hemosiderin deposition/hyperpigmentation both legs/shins ) Hospital Course HISTORY OF PRESENT ILLNESS: This is an 82 y/o male with a history of ESRD on HD, a-fib, ischemic cardiomyopathy, dual-chamber AICD, CAD, carotid artery stenosis, HTN, HLD, chronic systolic CHF, DM II, hypothyroidism, gout and glaucoma who presented to the ED on 03/19 with altered mental status. The patient is a resident of [facility] and had initially presented to the ED yesterday due to a fall. The patient was then discharged back to [facility], and per family had been doing well. Today the patient has been more confused and disoriented than normal. The patient is on HD and typically receives dialysis on a // scheduled, but had received treatments M/W this week due to the holiday. The patient currently denies any complaints. Per family, the patient's mental status had started to improve while in the ED, but now is appearing to worsen again. The patient denies fevers, chills, sweats, chest pain, palpitations, claudication, cough, wheezing, shortness of breath, nausea, vomiting, abdominal pain, dysuria, hematuria, urinary retention, paralysis, weakness, numbness and tingling. HOSPITAL COURSE: 1. enterococcus septicemia - Late in the day on hospital day #1 the patient spiked a fever and about the same time his blood cultures from ER presentation turned positive for gram- positive cocci. The gram-positive cocci ultimately were identified as enterococcus faecalis, sam -sensitive. The septicemia was felt to be the cause of his fall and confusion at time of presentation. His initial hospital course was managed in the ICU. The exact source of the enterococcus was uncertain. Possibilities included the skin (sacral skin breakdown, ulcer on left heel, etc), bacteremic seeding during hemodialysis, the urinary tract (urine culture grew a small amount of gram-positive cocci), or even the oral cavity (patient with numerous broken teeth and overall poor dentition). Of note - digital rectal exam failed to show evidence of prostatitis. Repeat blood cultures later in his stay were NEGATIVE. The patient was seen by Dr. Hussein De Jesus, infectious disease, and he recommended a 2-week course of IV vancomycin followed by a 4 week course of oral amoxicillin. A prolonged course was recommended due to the presence of an AICD and the potential for lead infection. Echocardiogram was negative for valvular lesions. 2. metabolic encephalopathy 2nd to #1 - resolved. He appears to have some element of mild cognitive impairment at baseline, however. 3. ESRD on HD - he received urgent hemodialysis on hospital day #1 due to hyperkalemia and volume overload. He then resumed a normal dialysis schedule of Wednesday//Wednesday. 4. positive troponin - peak troponin was just above 2. This was felt to likely present myocardial demand ischemia in the setting of #1 above. He never had ischemic symptoms while hospitalized. 5. a. fib - he will continue daily warfarin. Recommend daily INRs at least for 2-3 days upon transfer to [facility] to ensure stability of INR. INR on 03/28/17 was 2. INR goal is 2-3. He will continue his beta harry. 6. acute/chronic systolic CHF - he is compensated at time of discharge. He will continue ASA, Coreg 6.25 mg PO BID, Lipitor 80 mg PO qd. 7. mild macrocytic anemia - chronic, stable; most recent TSH/B12/Folate were all wnl. early/smoldering myelodysplastic syndrome? would simply follow for now in light of his complex medical problems. 8. T2DM - remains controlled largely with diet alone. 9. stage 3 ulcer, left heel; sacral decubitus ulcer; skin tears; left ankle medial malleolus ulcer - recommend follow-up with the [facility] within 5 days to monitor these skin issues. The left heel ulcer, left jones skin tear, left medial malleolus ulcer, etc should be covered with Aquacel Silver with Optifoam dressings. Seen by PT, OT; both recommended rehab post-discharge. He will transfer to [facility] for such with the hope for ultimate return to [facility]. Total Time Spent: Greater than 30 minutes This includes examination of the patient, discharge planning, medication reconciliation, and communication with other providers. Discharge Instructions Please refer to the electronic Patient Visit Report (Discharge Instructions) for additional information. Follow-Up 1. medical doctor md/medical director of [facility] within 48 hours of admission 2. hemodialysis at [facility] on 03/30/[address] Hussein De Jesus, infectious disease, in 1-2 weeks 4. [facility] within 5 days to re-examine left heel ulcer Additional Copies To Hussein De Jesus MD; Ravin Diaz; Vivek Ramirez M.D.; Baldev Ty D.O.
[2017-03-27] MEDS: TRAVOPROST Z 0.004% OPH SOLN 2.5 ML BTL OPB SCH (20:57)
[2017-03-27] MEDS: ATORVASTATIN 20 MG TAB PO SCH (20:58)
[2017-03-27] MEDS: PANTOprazole SOD 40 MG TAB PO SCH (20:59)
[2017-03-28] MEDS: LEVOTHYROXINE 175 MCG TAB PO SCH (05:49)
[2017-03-28 07:18] LABS: PROTHROMBIN TIME (PATIENT) 22.2 SECONDS (9.0-12.0)
[2017-03-28 07:40] VITALS: BP 117/53; PULSE 61; TEMP 36.7; O2SAT 97
[2017-03-28 08:02] LABS: BUN/CREATININE RATIO 6.7 (10-20); CALCIUM 8.5 mg/dl (8.5-10.1); CREATININE 4.4 mg/dl (0.60-1.40); POTASSIUM 4.3 mmol/L (3.5-5.1)
[2017-03-28] MEDS: ASPIRIN 81 MG ECTAB PO SCH (09:09)
[2017-03-28] MEDS: CARVEDILOL 6.25 MG TAB PO SCH (09:09)
[2017-03-28] MEDS: CEROVITE ADV FORMULA TAB PO SCH (09:09)
[2017-03-28] MEDS: TIMOLOL MALEATE 0.5% OP SOLN 5 ML BTL OPB SCH (09:09)
[2017-03-28] MEDS: CALCIUM CARBONATE 500 MG CHEWABLE PO SCH (09:09)
[2017-03-28] MEDS: INSULIN ASPART 100 UNITS/ML 3 ML PEN SC SCH ×2 (09:14→12:43)
[2017-03-28] MEDS: BOOST GLUCOSE CONTROL PO SCH ×2 (09:15→12:44)
[2017-03-28 10:07] VITALS: BP 117/53; PULSE 61; TEMP 36.7; O2SAT 97
== END 2017-03-28 14:29 | DRG 871 ==
LOC: EDBD 09:57 → C.EDB 09:58 → C.MSICU 12:59 → ENRESERVTM 13:00 → ENRESERVDT 13:00 → ENRESERV 13:13 → CANRESERV 13:13 → EDBEDREQTM 14:04 → C.MSICU 14:20 → ENRESERV 23:04 → C.2T 23:16 → ENRESERV 03-22 15:21 → C.MSN 03-22 16:12
PROVIDERS: ADMIT Hospitalist; ATTEND Internal Medicine
DX: A41.81 Sepsis due to Enterococcus (principal); G93.41 Metabolic encephalopathy; I50.23 Acute on chronic systolic (congestive) heart failure; L89.623 Pressure ulcer of left heel, stage 3; N18.6 End stage renal disease; I21.A1 Myocardial infarction type 2; N39.0 Urinary tract infection, site not specified; E87.1 Hypo-osmolality and hyponatremia; L97.929 Non-pressure chronic ulcer of unspecified part of left lower leg with unspecified severity; I13.2 Hypertensive heart and chronic kidney disease with heart failure and with stage 5 chronic kidney disease, or end stage renal disease; B96.89 Other specified bacterial agents as the cause of diseases classified elsewhere; E87.5 Hyperkalemia; L89.152 Pressure ulcer of sacral region, stage 2; G31.84 Mild cognitive impairment of uncertain or unknown etiology; K02.9 Dental caries, unspecified; S42.201D Unspecified fracture of upper end of right humerus, subsequent encounter for fracture with routine healing; I25.10 Atherosclerotic heart disease of native coronary artery without angina pectoris; E11.22 Type 2 diabetes mellitus with diabetic chronic kidney disease; E11.51 Type 2 diabetes mellitus with diabetic peripheral angiopathy without gangrene; I65.29 Occlusion and stenosis of unspecified carotid artery; I87.8 Other specified disorders of veins; I25.5 Ischemic cardiomyopathy; M10.9 Gout, unspecified; I48.2 Chronic atrial fibrillation; E03.9 Hypothyroidism, unspecified; D53.9 Nutritional anemia, unspecified; H40.9 Unspecified glaucoma; F03.90 Unspecified dementia, unspecified severity, without behavioral disturbance, psychotic disturbance, mood disturbance, and anxiety; Z79.899 Other long term (current) drug therapy; Z79.01 Long term (current) use of anticoagulants; Z79.82 Long term (current) use of aspirin; Z95.810 Presence of automatic (implantable) cardiac defibrillator; Z99.2 Dependence on renal dialysis; Z91.81 History of falling; Z87.891 Personal history of nicotine dependence; Z82.49 Family history of ischemic heart disease and other diseases of the circulatory system; Z80.3 Family history of malignant neoplasm of breast; Z83.49 Family history of other endocrine, nutritional and metabolic diseases; W19.XXXD Unspecified fall, subsequent encounter

== ENCOUNTER 2017-04-12 10:20 | Day surgery (SDC) | payer BC, OTHER ==
[2017-04-09 15:44] VITALS: Ht 180.3 cm; Wt 74.1 kg
[~2017-04-12] VITALS: Ht 180.3 cm; Wt 74.1 kg
--- NOTE | 2017-04-12 06:32 | History and Physical ---
History & Physical Date of Service Apr 12, 2017. History & Physical Chief Complaint: Left arm swelling History of Present Illness The patient is a 81 year old male with multiple medical problems, including ESRD on HD, admitted for vein vein bypass. Pt had a failed L wrist AVF and later a LUE brachiocephalic AVF which is functioning well. 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 Attempted intervention, however, BODY LINE FINISHER was unsuccessful. He underwent left fistula to right subclavian vein bypass. He had good results with decreased swelling of his arm but now has swelling again and a partially thrombosed bypass. Denies FRANKLIN, fever, chills, chest pain, SOB, abd pain, N/V, rest pain, claudication, other complaints. Allergies No Known Allergies (Unverified , 08/25/15) Surgical / Medical History Hx Cardiac Surgery: Yes (AICD) Hx Abdominal Surgery: No Hx Cancer Surgery: No Hx Thoracic Surgery: No Hx Orthopedic: Yes (Broken arm) Hx Urinary Tract Surgery: No HX Other Surgery: Yes (esophageal surgery, AVF creation) Past Medical/Surgical History: Kidney Disease Family History No significant family history Social History Smoking Status: Never Smoker Hx Tobacco Use In Past Year?: No Hx Alcohol Use - Type & Amnt: Yes (OCC BEER ) Hx Substance Use -Type & Amnt: No Review of Systems Constitutional: No chills, No fever, No malaise Skin: No change in color Eyes: No visual changes ENMT: No sore throat Respiratory:, No SOB or cough, No hemoptysis Cardiovascular: + edema, No chest pain, No intermittent claudication, No palpitations Gastrointestinal: No abdominal pain, No nausea, No vomiting Neurologic: No dizziness, No headache Physical Exam: Constitutional: General Apperance: well-nourished, well-developed, too thin Level of Distress: NAD, acutely ill, chronically ill Psychiatric: Mental Status: active & alert, normal mood, normal affect Orientation: oriented except where noted, to time, to place, to person Memory: recent memory abnormal, remote memory abnormal (vague, poor historian) Head: normocephalic, atraumatic Eyes: EOM: EOMI ENMT: normal ENT inspection, hearing grossly normal Neck: supple, trachea midline Lungs: Respiratory effort: No dyspnea Auscultation: breath sounds normal, no expiratory wheezing, wet rales/ crackles Cardiovascular: Apical Impulse: not displaced Heart Auscultation: no murmurs, no rubs, no gallops, pertinent finding ( irregular) Peripheral Pulses: Pulses: full and equal, in all extremities except if noted Bruits: none appreciated Carotid Pulse: normal on the left, normal on the right Brachial Pulses: normal on the left, normal on the right Radial Pulse: normal on the left, normal on the right Ulnar Pulse: normal on the left, normal on the right Femoral Pulse: normal on the left, normal on the right Posterior Tibialis Pulse: decreased on the left, decreased on the right Dorsalis Pedis Pulse: decreased on the left, decreased on the right Abdomen: Bowel Sounds: normal Inspection & Palpation: soft, non-distended, no tenderness, guarding & rebound Musculoskeletal: normal strength (5/5 throughout), normal tone Extremities: Upper Right: no cyanosis, no edema, no varicosities Upper Left: no cyanosis, significant edema, no varicosities. + thrill/ bruit. Lower Right: no cyanosis, no varicosities, no palpable cord, edema, ulcers Lower Left: no cyanosis, no varicosities, no palpable cord, edema, ulcers Neurologic: Cranial Nerves: grossly intact Sensation: grossly intact ASSESSMENT and PLAN: Left arm swelling LUE AVF ESRD on HD Plan: Patient admitted for a left arm fistulogram with possible intervention. I have discussed the risks options and benefits of the procedure with the patient. The patient understands the risks options and benefits and agrees to the procedure.
[~2017-04-12 10:20] MED LIST changes: +AMX500 PO; -GUAI100S75 PO; +RCL25 PO; +SODIUM CHLORIDE 0.9% 1000ML IV SCH; +TRAV0.00 OPB; +VANC1INJ94 IV
[2017-04-12 11:01] VITALS: BP 136/67; PULSE 77; TEMP 36.6; O2SAT 99
[2017-04-12 11:14] LABS: INR 1.3 (0.9-1.1); PARTIAL THROMBOPLASTIN RATIO 1.2; PROTHROMBIN TIME (PATIENT) 13.3 SECONDS (9.0-12.0)
[2017-04-12] MEDS ORDERED: ACET325T96 PO (11:25)
[2017-04-12] MEDS ORDERED: INSDGI SC (11:25)
[2017-04-12] MEDS ORDERED: CALC667C4 PO (11:25)
[2017-04-12] MEDS ORDERED: MENTOIN TOP (11:27)
--- NOTE | 2017-04-12 11:30 | Procedure Note ---
Pre-Mod Sedation Assessment General Date of Moderate Sedation: Apr 12, 2017. Vital Signs: Vital Signs Past 12 Hours Date Time Temp Pulse Resp B/P (MAP) Pulse Ox O2 Delivery O2 Flow Rate FiO2 04/12/17 11:01 36.6 77 18 136/67 (90) 99 Room Air Pre-Sedation Airway Assessment Smoking Status: Former Smoker Mallampati Classification: Class I ASA Classification: Class III Notes The planned sedation has been discussed with the patient and consent obtained. I have identified the patient, determined the appropriateness of sedation and have assessed the patient immediately prior to the procedure. All medicine(s) and interventions are by my order.
[2017-04-12 11:34] LABS: BUN/CREATININE RATIO 10.1 (10-20); CALCIUM 9.1 mg/dl (8.5-10.1); CREATININE 5.44 mg/dl (0.60-1.40)
[2017-04-12] MEDS ORDERED: HEPARIN SOD (PORCINE) 1000 UNIT/ML 10 ML VIAL ONE (11:43)
[2017-04-12] MEDS ORDERED: FENTANYL CITRATE INJ 50 MCG/1 ML 2 ML VIAL ONE (11:43)
[2017-04-12] MEDS ORDERED: MIDAZOLAM HCL 1 MG/ML 2ML VIAL ONE (11:44)
[2017-04-12 11:56] VITALS: BP 136/67; PULSE 77; TEMP 36.6; O2SAT 99
[2017-04-12] MEDS ORDERED: CEFAZOLIN SOD 1000MG/5 ML IV PUSH IV ONE (11:59)
[2017-04-12 12:03] VITALS: BP 136/67; PULSE 77; TEMP 36.6; O2SAT 99
[2017-04-12] MEDS ORDERED: HEPARIN SOD (PORCINE) 5000 UNIT/ML 1 ML VIAL ONE (12:15)
[2017-04-12] MEDS ORDERED: MIDAZOLAM HCL 1 MG/ML 2ML VIAL IV ONE (12:30)
[2017-04-12] MEDS ORDERED: FENTANYL CITRATE INJ 50 MCG/1 ML 2 ML VIAL IV ONE (12:30)
[2017-04-12] MEDS ORDERED: LIDOCAINE HCL 1% 20 ML VIAL INJ ONE (12:35)
[2017-04-12] MEDS ORDERED: OPTIRAY 300 IV ONE (13:01)
--- NOTE | 2017-04-12 13:04 | Discharge Instructions ---
Discharge Instructions Date of Service Apr 12, 2017. Visit Reason for Visit: Thrombosed Vascular Graft Discharge Discharge Diagnosis / Problem: Malfunctioning fistula Discharge Goals Goal(s): Therapeutic intervention Activity Recommendations Activity Limitations: per Instructions/Follow-up section Anesthesia . Post Anesthesia Instructions: If you have had General Anesthesia or IV Sedation: * Do not drive today. * Resume driving when surgeon permits. * Do not make important decisions or sign legal documents today. * Call surgeon for: 1. Temperature elevations greater than 101 degrees F. 2. Uncontrollable pain. 3. Excessive bleeding. 4. Persistent nausea and vomiting. 5. Medication intolerance (nausea, vomiting or rash). * For nausea and vomiting use only clear liquids such as: tea, soda, bouillon until nausea subsides, then gradually increase diet as tolerated. * If you have any concerns or questions, call your surgeon's office. If physician is unavailable and it is an emergency, call 911 or go to the nearest emergency room. . Instructions / Follow-Up Instructions / Follow-Up Call [phone] to schedule a follow up appointment if one not already scheduled. SPECIAL CARE INSTRUCTIONS: Medications: * Continue to take your medications as directed. If you have been given a prescription for Plavix, please fill it immediately and take as directed. Incision Care: * Your puncture site may have some bruising and minor swelling for about one week. * You will have a small dressing covering your puncture site. You may remove the dressing after 24 hours and shower. You may let the warm soapy water run over it, but be sure to dry the puncture site well and keep it dry. * DO NOT IMMERSE THE INCISION IN A TUB/POOL/etc. UNTIL HEALED. * Puncture sites should be kept covered with a band-aid until it begins to heal. Restrictions: * Depending on whether you leg or arm was punctured to access the arteries, you will be required to lay flat, hold your arm still, or both, for about 4 hours after the procedure to prevent bleeding. * Limit your activity for the first 48 hours. You may walk and go up and down steps. Avoid excessive bending or movement at the puncture site. Possible Complications: * Excessive Swelling - after blood flow is improved you may notice increased swelling in the lower legs. This is a normal response. This usually depends on the amount of blockages in the leg, how long they have been there prior to your procedure and how much blood flow was restored. Elevating your legs will help to improve this. Please notify our office ([phone] ) if the swelling does not go away after lying in bed overnight. * Infection/Drainage/Bleeding - Drainage or bleeding from the puncture site should be minimal. If you have excessive bleeding or drainage, call our office ([phone]) right away. * Pain - You may experience some mild pain or soreness at your puncture site. If your pain does not improve, please contact our office ([phone]). Call your doctor and seek emergent treatment if you develop: * Temperature above 101 degrees * Any fever or chills * Any redness or purulent drainage from the puncture site * Any new dusky/blue colored toes or feet with coolness or sharp or aching pain. SKIN IRRITATION: * You may experience some redness and/or swelling in the area where radiation was administered. If any skin irritation occurs, please contact your family physician. FOLLOW UP VISIT: Keep any scheduled doctor appointments. Diet Recommendations Recommended Home Diet: resume previous diet Procedures Procedures Performed: Fistulogram, Percutaneous Transluminal Angioplasty Central Venous, Percutaneous Transluminal Angioplasty And Stenting Peripheral, Moderate Sedation 3021-6422 Pending Studies Studies pending at discharge: no Medical Emergencies . Who to Call and When: Medical Emergencies: If at any time you feel your situation is an emergency, please call 911 immediately. . Non-Emergent Contact Non-Emergency issues call your: Surgeon . . "Provider Documentation" section prepared by Valeriy Dia. .
--- NOTE | 2017-04-12 13:05 | Procedure Note ---
Post-Moderate Sedation Plan General Date of Moderate Sedation Apr 12, 2017. Vital Signs: Vital Signs Past 12 Hours Date Time Temp Pulse Resp B/P (MAP) Pulse Ox O2 Delivery O2 Flow Rate FiO2 04/12/17 12:03 36.6 77 18 136/67 99 Room Air 04/12/17 11:56 36.6 77 18 136/67 99 Room Air 04/12/17 11:01 36.6 77 18 136/67 (90) 99 Room Air Review - Discharge Plan Post Moderate Sedation Plan: On clinical assessment, the patient appears to have tolerated the conscious sedation without complications. Patient is recovering as anticipated. Patient will continue to be monitored by nursing and may be discharged when conscious sedation discharge criteria are met.
--- NOTE | 2017-04-12 13:05 | [facility] Post Operative Brief Note ---
Immediate Operative Summary Operative Date Apr 12, 2017. Pre-Operative Diagnosis malfunctioning fistula Post-Operative Diagnosis same Procedure(s) Performed Fistulogram, Percutaneous Transluminal Angioplasty Central Venous, Percutaneous Transluminal Angioplasty And Stenting Peripheral, Moderate Sedation [id number] Dia Generating Station Mechanic Surgeon(s) Daxa Faust MD Estimated Blood Loss 5 ml Findings severe stenosis left arm anastomosis, moderate right subclavian vein anastomosis Specimens none Anesthesia Local with sedation Complication(s) None Disposition
[2017-04-12 13:15] VITALS: BP 133/63; PULSE 60; TEMP 36.6; O2SAT 97
--- NOTE | 2017-04-12 13:16 | [facility] Operative Report ---
Operative Report Operative Date Apr 12, 2017. Pre-Operative Diagnosis malfunctioning fistula Post-Operative Diagnosis same Procedure(s) Performed Fistulogram, Percutaneous Transluminal Angioplasty Central Venous, Percutaneous Transluminal Angioplasty And Stenting Peripheral, Moderate Sedation [id number] Dia Operations Intelligence Surgeon(s) Daxa Faust MD Estimated Blood Loss 5 ml Findings Stenosis at anastomosis of LUE fistula and 6mm PFTE graft at shoulder, distal anastomosis of graft and right subclavian vein. Specimens none Drains none Anesthesia Local with sedation Complication(s) None Disposition Indications LUE edema due to malfunctioning fistula Description of Procedure The patient was taken to the angiogram suite and placed in the supine position. The left arm was then prepped and draped in a sterile manner. Local anesthetic was administered and a percutaneous puncture was then made of the proximal portion of the left arm AV fistula using micropuncture technique. Micropuncture wire and sheath were then inserted. A fistulogram was then performed. Fistulogram showed widely patent proximal fistula, severe stenosis at the anastomosis of the left arm fistula to the 6 mm PTFE graft and stenosis of the distal anastomosis of the graft and right subclavian vein. The sheath was upsized to a 6 german sheath. A glide wire was placed through the fistula and into the graft. A 6 x 40 mm balloon was used to angioplasty the stenosis at the site of the proximal anastomotic stenosis between the graft and the LUE fistula. Repeat fistulogram showed improvement. A 8x40 Absolute stent was then placed at this site and post dilated with a 8x20 mm balloon. Fistulgram of the distal anastomosis was obtained and showed stenosis. The glide wire was advanced in the right subclavian vein and a 6 x 40 mm balloon was used to dilate the anastomotic stenosis. Completion fistulogram showed resolution of the the stenoses. The sheath was then pulled and pressure was applied. Adequate hemostasis was obtained. The patient left the angiogram suite in good condition and tolerated the procedure well. I attest to the content of the Intraoperative Record and any orders documented therein. Any exceptions are noted below. I, Dr. Dia was present and scrubbed for the entire procedure. I attest to the content of the Intraoperative Record and any orders documented therein. Any exceptions are noted below.
[2017-04-12 13:30] VITALS: BP 134/60; PULSE 59; TEMP 36.6; O2SAT 99
[2017-04-12] MEDS ORDERED: NURSING VERBAL MED ORDER ONE (13:30)
[2017-04-12 13:50] VITALS: BP 147/63; PULSE 60; TEMP 36.5; O2SAT 95
== END 2017-04-12 14:16 | disposition home or self-care (01) ==
LOC: C.ACU 10:20
PROVIDERS: ATTEND Surgery Vascular Surgery
DX: T82.590A Other mechanical complication of surgically created arteriovenous fistula, initial encounter (principal); X58.XXXA Exposure to other specified factors, initial encounter; N18.6 End stage renal disease; Z99.2 Dependence on renal dialysis; Z95.810 Presence of automatic (implantable) cardiac defibrillator; I12.0 Hypertensive chronic kidney disease with stage 5 chronic kidney disease or end stage renal disease; I48.0 Paroxysmal atrial fibrillation; E78.5 Hyperlipidemia, unspecified; K21.9 Gastro-esophageal reflux disease without esophagitis; K22.5 Diverticulum of esophagus, acquired; E11.22 Type 2 diabetes mellitus with diabetic chronic kidney disease; E03.9 Hypothyroidism, unspecified; D64.9 Anemia, unspecified; H40.9 Unspecified glaucoma; E66.9 Obesity, unspecified; Z87.891 Personal history of nicotine dependence; Z79.01 Long term (current) use of anticoagulants; Z79.82 Long term (current) use of aspirin; Z79.899 Other long term (current) drug therapy; Z68.32 Body mass index [BMI] 32.0-32.9, adult

== ENCOUNTER 2017-07-30 05:11 | Day surgery (SDC) | payer BC ==
[~2017-07-30 05:11] MED LIST changes: -ACET-1311 PO; +ACET-1693 PO; -AMX500 PO; +CALC667C4 PO; +INSDGI SC; +MENTOIN TOP; -NUTR-31 PO; -SODIUM CHLORIDE 0.9% 1000ML IV SCH; -VANC1INJ94 IV
--- NOTE | 2017-07-30 05:50 | History and Physical ---
History & Physical Date of Service Jul 30, 2017. History & Physical Chief Complaint: Left arm swelling History of Present Illness The patient is a 81 year old male with multiple medical problems, including ESRD on HD, and a vein vein bypass for arm swelling. Pt had a failed L wrist AVF and later a LUE brachiocephalic AVF which is functioning well. 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 Attempted intervention, however, SAUSAGE CUTTER was unsuccessful. He underwent left fistula to right subclavian vein bypass. He had good results with decreased swelling of his arm but now has swelling again and a partially thrombosed bypass. Denies FRANKLIN, fever, chills, chest pain, SOB, abd pain, N/V, rest pain, claudication, other complaints. Allergies No Known Allergies (Unverified , 08/25/15) Surgical / Medical History Hx Cardiac Surgery: Yes (AICD) Hx Abdominal Surgery: No Hx Cancer Surgery: No Hx Thoracic Surgery: No Hx Orthopedic: Yes (Broken arm) Hx Urinary Tract Surgery: No HX Other Surgery: Yes (esophageal surgery, AVF creation) Past Medical/Surgical History: Kidney Disease Family History No significant family history Social History Smoking Status: Never Smoker Hx Tobacco Use In Past Year?: No Hx Alcohol Use - Type & Amnt: Yes (OCC BEER ) Hx Substance Use -Type & Amnt: No Review of Systems Constitutional: No chills, No fever, No malaise Skin: No change in color Eyes: No visual changes ENMT: No sore throat Respiratory:, No SOB or cough, No hemoptysis Cardiovascular: + edema, No chest pain, No intermittent claudication, No palpitations Gastrointestinal: No abdominal pain, No nausea, No vomiting Neurologic: No dizziness, No headache Physical Exam: Constitutional: General Apperance: well-nourished, well-developed, too thin Level of Distress: NAD, acutely ill, chronically ill Psychiatric: Mental Status: active & alert, normal mood, normal affect Orientation: oriented except where noted, to time, to place, to person Memory: recent memory abnormal, remote memory abnormal (vague, poor historian) Head: normocephalic, atraumatic Eyes: EOM: EOMI ENMT: normal ENT inspection, hearing grossly normal Neck: supple, trachea midline Lungs: Respiratory effort: No dyspnea Auscultation: breath sounds normal, no expiratory wheezing, wet rales/ crackles Cardiovascular: Apical Impulse: not displaced Heart Auscultation: no murmurs, no rubs, no gallops, pertinent finding ( irregular) Peripheral Pulses: Pulses: full and equal, in all extremities except if noted Bruits: none appreciated Carotid Pulse: normal on the left, normal on the right Brachial Pulses: normal on the left, normal on the right Radial Pulse: normal on the left, normal on the right Ulnar Pulse: normal on the left, normal on the right Femoral Pulse: normal on the left, normal on the right Posterior Tibialis Pulse: decreased on the left, decreased on the right Dorsalis Pedis Pulse: decreased on the left, decreased on the right Abdomen: Bowel Sounds: normal Inspection & Palpation: soft, non-distended, no tenderness, guarding & rebound Musculoskeletal: normal strength (5/5 throughout), normal tone Extremities: Upper Right: no cyanosis, no edema, no varicosities Upper Left: no cyanosis, significant edema, no varicosities. + thrill/ bruit. Lower Right: no cyanosis, no varicosities, no palpable cord, edema, ulcers Lower Left: no cyanosis, no varicosities, no palpable cord, edema, ulcers Neurologic: Cranial Nerves: grossly intact Sensation: grossly intact ASSESSMENT and PLAN: Left arm swelling LUE AVF ESRD on HD Plan: Patient admitted for a left arm fistulogram with possible intervention. I have discussed the risks options and benefits of the procedure with the patient. The patient understands the risks options and benefits and agrees to the procedure.
[2017-07-30] MEDS ORDERED: D5W AND 1/4NSS 1000 ML IV SCH (06:00)
[2017-07-30 06:37] VITALS: BP 128/60; PULSE 56; TEMP 36.6; O2SAT 99
[2017-07-30 06:39] LABS: INR 1.3 (0.9-1.1); PTT PATIENT 28.3 SECONDS (21.0-31.0)
[2017-07-30] MEDS ORDERED: CEFAZOLIN 1000MG IV PUSH 7.5 ML IV SCH (07:00)
[2017-07-30] MEDS ORDERED: FENTANYL CITRATE INJ 50 MCG/1 ML 2 ML VIAL ONE (07:46)
[2017-07-30] MEDS ORDERED: MIDAZOLAM HCL 1 MG/ML 2ML VIAL ONE (07:46)
--- NOTE | 2017-07-30 07:48 | Pre Sedation Assessment ---
Pre Sedation Assessment General Date of Sedation: Jul 30, 2017. Vital Signs Past 12 Hours Date Time Temp Pulse Resp B/P (MAP) Pulse Ox O2 Delivery O2 Flow Rate FiO2 07/30/17 06:37 36.6 56 20 128/60 (82) 99 Room Air Review Cardiovascular: regular rate, rhythm Lungs: lungs clear Pre-Sedation Airway Assessment Smoking Status: Former Smoker Hx of Sleep Apnea: No Thyro-mental Distance: > 3 Finger Breadths Oral Cavity: WNL Mallampati Classification: Class II ASA Classification: Class III NPO Status Date of Last Intake of Fluids: Jul 30, 2017 Time of Last Intake of Fluids: 1800 Date of Last Intake of Solids: Jul 30, 2017 Time of Last Intake of Solids: 1800 Procedure Planning Contraindications for Sedation: None Current Medications Reviewed: Yes Notes The planned sedation has been discussed with the patient. Informed Consent was obtained. I have identified the patient, determined the appropriateness of sedation and have assessed the patient immediately prior to the procedure. All medicine(s) and interventions are by my order.
[2017-07-30] MEDS ORDERED: WARF1TAB6 PO (08:01)
[2017-07-30] MEDS ORDERED: LIDOCAINE HCL 1% 20 ML VIAL INJ ONE (08:26)
--- NOTE | 2017-07-30 08:37 | [facility] Post Operative Brief Note ---
Immediate Operative Summary Operative Date Jul 30, 2017. Pre-Operative Diagnosis Left arm swelling Malfunctiong Fistula Post-Operative Diagnosis Left arm swelling Malfunctiong Fistula Procedure(s) Performed Left Upper Extremity Fistulogram Surgeon [place] Twister Frame Tender Surgeon(s) Brian Estimated Blood Loss 2 Findings Consistent with Post-Op Diagnosis Specimens None Drains None Anesthesia Type Local Complication(s) none Disposition Accompanied Pt To Recover: no Disposition:
[2017-07-30] MEDS ORDERED: OPTIRAY 300 IV ONE (08:38)
--- NOTE | 2017-07-30 08:39 | Discharge Instructions ---
Discharge Instructions Date of Service Jul 30, 2017. Visit Reason for Visit: End Stage Renal Disease Discharge Discharge Diagnosis / Problem: Left arm swelling, fistulogram Discharge Goals Goal(s): Diagnostic testing Activity Recommendations Activity Limitations: per Instructions/Follow-up section Anesthesia . Post Anesthesia Instructions: If you have had General Anesthesia or IV Sedation: * Do not drive today. * Resume driving when surgeon permits. * Do not make important decisions or sign legal documents today. * Call surgeon for: 1. Temperature elevations greater than 101 degrees F. 2. Uncontrollable pain. 3. Excessive bleeding. 4. Persistent nausea and vomiting. 5. Medication intolerance (nausea, vomiting or rash). * For nausea and vomiting use only clear liquids such as: tea, soda, bouillon until nausea subsides, then gradually increase diet as tolerated. * If you have any concerns or questions, call your surgeon's office. If physician is unavailable and it is an emergency, call 911 or go to the nearest emergency room. . Instructions / Follow-Up Instructions / Follow-Up Call [phone] to schedule a follow up appointment if one not already scheduled. SPECIAL CARE INSTRUCTIONS: Medications: * Continue to take your medications as directed. If you have been given a prescription for Plavix, please fill it immediately and take as directed. Incision Care: * Your puncture site may have some bruising and minor swelling for about one week. * You will have a small dressing covering your puncture site. You may remove the dressing after 24 hours and shower. You may let the warm soapy water run over it, but be sure to dry the puncture site well and keep it dry. * DO NOT IMMERSE THE INCISION IN A TUB/POOL/etc. UNTIL HEALED. * Puncture sites should be kept covered with a band-aid until it begins to heal. Restrictions: * Depending on whether you leg or arm was punctured to access the arteries, you will be required to lay flat, hold your arm still, or both, for about 4 hours after the procedure to prevent bleeding. * Limit your activity for the first 48 hours. You may walk and go up and down steps. Avoid excessive bending or movement at the puncture site. Possible Complications: * Excessive Swelling - after blood flow is improved you may notice increased swelling in the lower legs. This is a normal response. This usually depends on the amount of blockages in the leg, how long they have been there prior to your procedure and how much blood flow was restored. Elevating your legs will help to improve this. Please notify our office ([phone] ) if the swelling does not go away after lying in bed overnight. * Infection/Drainage/Bleeding - Drainage or bleeding from the puncture site should be minimal. If you have excessive bleeding or drainage, call our office ([phone]) right away. * Pain - You may experience some mild pain or soreness at your puncture site. If your pain does not improve, please contact our office ([phone]). Call your doctor and seek emergent treatment if you develop: * Temperature above 101 degrees * Any fever or chills * Any redness or purulent drainage from the puncture site * Any new dusky/blue colored toes or feet with coolness or sharp or aching pain. SKIN IRRITATION: * You may experience some redness and/or swelling in the area where radiation was administered. If any skin irritation occurs, please contact your family physician. FOLLOW UP VISIT: Keep any scheduled doctor appointments. Diet Recommendations Recommended Home Diet: resume previous diet Procedures Procedures Performed: Left Upper Extremity Fistulogram Pending Studies Studies pending at discharge: no Medical Emergencies . Who to Call and When: Medical Emergencies: If at any time you feel your situation is an emergency, please call 911 immediately. . Non-Emergent Contact Non-Emergency issues call your: Surgeon . . "Provider Documentation" section prepared by Valeriy Dia. .
[2017-07-30 08:45] VITALS: BP 132/63; PULSE 66; TEMP 36.7; O2SAT 95
--- NOTE | 2017-07-30 09:10 | DIAGNOSTIC IMAGING REPORT ---
DATE OF PROCEDURE: 07/30/2017 PREOPERATIVE DIAGNOSIS: Left arm swelling, left arm fistula dysfunction. POSTOPERATIVE DIAGNOSIS: Same. PROCEDURE: Left arm diagnostic fistulogram. SURGEON: Valeriy Dia MD. HOSPICE RN: Catie Torres MD. ANESTHESIA: Local. COMPLICATIONS: None. ESTIMATED BLOOD LOSS: 2 mL. INDICATIONS: Mr. Alphonse Morrow is an 82-year-old gentleman with end-stage renal disease on hemodialysis through a left arm AV fistula. He is having difficulties with high venous pressures during dialysis and for this reason was recommended to undergo a fistulogram. The risks, benefits and alternatives were discussed with the patient and he consented to the procedure. DESCRIPTION OF PROCEDURE: The patient was taken to the endovascular suite and placed in supine position. His left forearm was prepped and draped in the usual sterile fashion. A safety timeout was performed and the patient, procedure, and sidedness were correctly identified. Local anesthesia was used to anesthetize the skin overlying the cephalic vein at the antecubital fossa. A micropuncture needle was used to access the venous portion of the AV fistula. A guidewire easily passed through the needle and the needle was removed. The micropuncture sheath was advanced over the wire and the wire and dilator removed. A fistulogram was obtained and showed occlusion of the cephalic vein at the level of the mid humerus. The collateral joining the cephalic and basilic vein allowed venous outflow of the fistula through the basilic vein which also occluded near the axilla. The patient had formed numerous collaterals of varying sizes over the left shoulder which provide venous outflow for the fistula. It appears that his central veins on the left are predominantly occluded. His previous cross neck venous bypass did not appear patent based on today's fistulogram. Given the extent of his occlusions, we did not feel that we would be able to intervene. Access was removed and manual pressure was held over the puncture site for approximately 10 minutes with good hemostasis. The patient was taken to the recovery area in stable condition. He tolerated the procedure well and there were no immediate complications. Dr. Valeriy Dia was present for the entire procedure. We will see him back in the office to discuss further options for hemodialysis of this patient possibly in his right arm. The left arm fistula may be used in the interim until further permanent dialysis access can be established.
[2017-07-30 09:15] VITALS: BP 131/71; PULSE 64; O2SAT 95
== END 2017-07-30 09:35 ==
LOC: C.ACU 05:11
PROVIDERS: ATTEND Surgery Vascular Surgery
DX: T82.49XA Other complication of vascular dialysis catheter, initial encounter (principal); Y84.8 Other medical procedures as the cause of abnormal reaction of the patient, or of later complication, without mention of misadventure at the time of the procedure; N18.6 End stage renal disease; Z99.2 Dependence on renal dialysis

== ENCOUNTER → 2017-12-08 | Outpatient (CLI) | payer BC ==
[~2017-12-08] MED LIST changes: -CALC500C3 PO; -MENTOIN TOP; +RCL/25 PO; -RCL25 PO; -WARF1TAB PO; +WARF1TAB6 PO
--- NOTE | 2017-12-08 15:14 | DIAGNOSTIC IMAGING REPORT ---
L ART DOP DUP UPPER EXT UNI CLINICAL HISTORY: END STAGE RENAL DISEASE, HAND IS COOL TO TOUCH COMPARISON STUDY: None. FINDINGS: The left common carotid artery is patent and demonstrates a normal velocity. Normal velocities within the left subclavian artery. This measures up to 147 cm/s. Normal velocities within the left axillary artery measuring 170 cm/s. Mild scattered calcified plaque. Peak systolic velocity within the left proximal brachial artery was 197 cm/s. However, there is no significant stenosis on the provided images. No evidence for arterial occlusion. The patient deferred additional imaging of the left upper extremity arteries. IMPRESSION: No significant stenosis or occlusion within the proximal left upper extremity arterial structures. The patient deferred imaging of the distal left upper extremity arteries. Electronically signed by: Jose G Rodriguez M.D. 12/08/2017 3:12 PM Dictated Date/Time: 12/08/2017 3:09 PM
--- NOTE | 2017-12-08 15:34 | DIAGNOSTIC IMAGING REPORT ---
DUPLEX HEMODIALYSIS ACCESS CLINICAL HISTORY: END STAGE RENAL DISEASE, HAND IS COOL TO TOUCH TECHNIQUE: Arterial Doppler COMPARISON STUDY: 05/06/2016 FINDINGS: Patient declined to cooperate for the examination. The fistula is patent although further evaluation was not possible. IMPRESSION: Very limited study as the patient declined evaluation. The patient's fistula is patent but no further evaluation was possible. The above report was generated using voice recognition software. It may contain grammatical, syntax or spelling errors. Electronically signed by: Carlyle Lieberman M.D. 12/08/2017 3:33 PM Dictated Date/Time: 12/08/2017 3:31 PM
== END | disposition home or self-care (01) ==
LOC: C.ULTR 13:04
PROVIDERS: ATTEND Surgery Vascular Surgery
DX: N18.6 End stage renal disease (principal); Z99.2 Dependence on renal dialysis

== ENCOUNTER 2018-07-20 08:54 | Inpatient (IN) ==
[2018-07-20 09:57] LABS: Basophils # (auto) 0.01 K/uL (0-0.2); Basophils % (auto) 0.1 %; Eosinophils # (auto) 0.04 K/uL (0-0.5); Eosinophils % (auto) 0.4 %; Hematocrit (blood only) 32.5 % (42-52); Hemoglobin 10.8 g/dL (14.0-18.0); Immature Granulocytes # (auto) 0.02 K/uL (0.00-0.02); Immature Granulocytes % (auto) 0.2 %; Lymphocytes # (auto) 1.06 K/uL (1.2-3.4); Lymphocytes % (auto) 10.3 %; Mean Corpuscular Hgb Conc 33.2 g/dL (32-36); Mean Corpuscular Volume 108.3 fL (80-100); Mean Platelet Volume 11.4 fL (7.4-10.4); Monocytes # (auto) 0.47 K/uL (0.11-0.59); Monocytes % (auto) 4.6 %; Neutrophils # (auto) 8.67 K/uL (1.4-6.5); Neutrophils % (auto) 84.4 %; Platelet Count 193 K/uL (130-400); RDW Coefficient of Variation 17.5 % (11.5-14.5); RDW Standard Deviation 68.4 fL (36.4-46.3); White Blood Count 10.27 K/uL (4.8-10.8)
[2018-07-20 10:05] LABS: BUN Creatinine Ratio 8.7 (10-20); Calcium 8.4 mg/dl (8.5-10.1); Creatinine Clr Calc Pharmacy 12.4 ml/min; Est GFR (African American) 13.2; Est GFR (Non-African American) 11.4
[2018-07-20 10:17] LABS: Prothrombin Time 48.8 Seconds (9.0-12.0)
[2018-07-20 10:18] LABS: Albumin Globulin Ratio 0.4 (0.9-2); Bilirubin,Total 0.7 mg/dl (0.2-1); Globulin 5.7 gm/dl (2.5-4.0); Total Protein 7.7 gm/dl (6.4-8.2); Troponin I 0.646 ng/ml (0-0.045)
[2018-07-20 10:19] LABS: Base Excess VBG 6.7 mEq/L; pH VBG 7.46 (7.36-7.41)
--- NOTE | 2018-07-20 10:33 | XRay Report ---
XR chest 1V portable HISTORY: 83 years-old Male Sepsis acute sepsis COMPARISON: Chest radiograph 05/13/2018 TECHNIQUE: Portable AP view of the chest FINDINGS: Cardiac silhouette is enlarged, unchanged. Stable positioning of the left subclavian pacer/AICD. Righ t internal jugular central venous catheter appears unchanged. Calcification of the thoracic aorta. Tr corazon left pleural effusion. No pneumothorax. Pulmonary vascular congestion with bilateral interstitial coarsening. Left greater than right bibasilar opacities. Degenerative changes of the shoulders and s pine. Remote appearing right proximal humeral fracture. IMPRESSION: 1. Cardiomegaly with mild pulmonary edema. 2. Trace left pleural effusion with left greater than right bibasilar opacities suggestive of atelect asis. Pneumonitis considered less likely. The above report was generated using voice recognition software. It may contain grammatical, syntax o r spelling errors. Electronically signed by: Chang Aguayo M.D. 07/20/2018 10:32 AM
[2018-07-20 10:34] LABS: INR 5.4 (0.9-1.1)
[2018-07-20 10:35] LABS: Partial Thromboplastin Time 52.9 Seconds (21.0-31.0)
--- NOTE | 2018-07-20 11:11 | CT Scan Report ---
CT OF THE HEAD WITHOUT CONTRAST CLINICAL HISTORY: Altered mental status. COMPARISON STUDY: Head CT May 13, 2018. CT DOSE: 537.48 mGy.cm TECHNIQUE: Helical axial images of the head were obtained without IV contrast. Automated exposure con trol was utilized for the study. A dose lowering technique was utilized adhering to the principles o f ALARA. FINDINGS: No acute intracranial hemorrhage, midline shift or mass effect is present. 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 This is unchanged. Ventricular system is stable. Basilar cisterns are pat ent. There are no extra-axial collections. White hypodensities suggest moderate small vessel disease. There is extensive intracranial vascular calcification. There are no findings to suggest acute dural sinus thrombosis or acute territorial infarct. There are no significant calvarial abnormalities. The re is mild sinus mucosal thickening. IMPRESSION: No acute intracranial findings. Electronically signed by: Jorge Pardo M.D. 07/20/2018 11:09 AM
[2018-07-20 12:46] LABS: Appearance Urine Cloudy (Clear); Bacteria Urine Automated Negative (Negative); Bilirubin Urine Negative (Negative); Blood Urine 2+ (Negative); Cast Urine Automated 0 /lpf (0-5); Color Urine Orange; Epithelial Cell Urine Auto 0-5 /lpf (0-5); Glucose Urine UA Trace (Negative); Ketones Urine Negative (Negative); Leukocyte Esterase Urine 1+ (Negative); Nitrite Urine Positive (Negative); Specific Gravity Urine 1.016 (1.000-1.030); Urobilinogen Urine Negative (Negative)
[2018-07-20 13:06] LABS: Protein Urine 2+ (Negative)
[2018-07-20] MEDS ORDERED: SODIUM CHLORIDE 0.9% 1000ML 1,000 ML IV ONE (13:07)
[2018-07-20] MEDS ORDERED: PIPERACILL/TAZOBAC CONSULT ACTIVE PRN ×2 (13:08→15:32)
[2018-07-20] MEDS ORDERED: PIPERACILLIN/TAZOBACTAM 4.5 GM/120 ML BAG IV ONE (13:08)
[2018-07-20 13:20] LABS: RBC Urine Automated >30 /hpf (0-4)
[2018-07-20] MEDS ORDERED: PIPERACILLIN/TAZOBACTAM 2.25 GM in DEXTROSE 5% 100 ML IV SCH (15:32)
[2018-07-20] MEDS ORDERED: CARBOHYDRATES FOR HYPOGLYCEMIA PO PRN (15:32)
[2018-07-20] MEDS ORDERED: GLUCOSE 10 TABS/TUBE PO PRN (15:32)
[2018-07-20] MEDS ORDERED: POLYETHYLENE (MIRALAX) 17 GM PACK PO PRN (15:32)
[2018-07-20] MEDS ORDERED: DEXTROSE 50% 50 ML SYRINGE IV PRN (15:32)
[2018-07-20] MEDS ORDERED: ONDANSETRON 4 MG TAB PO PRN (15:32)
[2018-07-20] MEDS ORDERED: GLUCAGON FOR INJ 1 MG VIAL SQ PRN (15:32)
[2018-07-20] MEDS ORDERED: GLUCOSE 40% GEL 15 GM TUBE PO PRN (15:32)
--- NOTE | 2018-07-20 15:59 | Emergency Department Note ---
Entered by Ani Tolliver acting as a scribe for History of Present Illness General Chief complaint: Lethargic Source: other (nursing staff) Limitations: altered mental status History of Present Illness Onset (ago): minute(s) (prior to arrival) Location: head Pain Consistency: + other (episode) Maximum Pain Intensity: 0 Quality: + other (altered mental status) The patient is an 83 year old male who presents to the Emergency Room with complaints of an episode of altered mental status starting prior to arrival. Per nursing staff, the patient was bought in by ambulance from the wound care clinic because he was found to be hypoxic there. The patient does not respond to any verbal commands. HPI and ROS are limited secondary to altered mental status. Home Medications Home Medications Medication Instructions Recorded Confirmed Type allopurinol 150 mg PO QPM 02/07/18 07/20/18 History amoxicillin 4 cap PO DIRECTED PRN 02/07/18 07/20/18 History aspirin 81 mg PO QPM 02/07/18 07/20/18 History atorvastatin 80 mg PO QPM 02/07/18 07/20/18 History calcitriol 0.5 mcg PO 3XWK 02/07/18 07/20/18 History calcium acetate 667 mg PO QDD 02/07/18 07/20/18 History carvedilol 6.25 mg PO BID17 02/07/18 07/20/18 History levothyroxine 175 mcg PO QAM 02/07/18 07/20/18 History pantoprazole 40 mg PO HS 02/07/18 07/20/18 History multivitamin 1 tab PO QAM 03/14/18 07/20/18 History ondansetron HCl [Zofran] 4 mg PO Q6 PRN 03/14/18 07/20/18 History acetaminophen 500 mg tablet 1,000 mg PO TID tab 04/15/18 07/20/18 History amino acid-protein hydr-whey prot 30 ml PO BID17 ml 04/15/18 07/20/18 History 15 gram-100 kcal/30 mL liquid packet ascorbic acid (vitamin C) 500 mg 500 mg PO QAM 04/15/18 07/20/18 History tablet insulin aspart U- 100 100 unit/mL See Rx Instructions SQ BID ml 04/15/18 07/20/18 History subcutaneous solution oxycodone 5 mg capsule 5 mg PO Q4H PRN cap 04/15/18 07/20/18 History polyethylene glycol 3350 17 17 gm PO DAILY PRN gm 04/15/18 07/20/18 History gram/dose oral powder warfarin 1 mg tablet 1 mg PO 5XWK 04/15/18 07/20/18 History warfarin 1 mg tablet 2 mg PO 2XWK tab 04/15/18 07/20/18 History zinc sulfate 220 mg tablet 220 mg PO QAM tab 04/15/18 07/20/18 History cadexomer iodine [Iodosorb] 1 applic TOPICAL QAM 05/13/18 07/20/18 History travoprost [Travatan Z] 1 drp OPB HS 05/13/18 07/20/18 History vit C-vit V-kilgog-fppq-lutein 1 cap PO QAM 05/13/18 07/20/18 History [PreserVision Lutein] bisacodyl [Dulcolax (bisacodyl)] 10 mg HI DAILY PRN 05/15/18 07/20/18 History food supplement, lactose-reduced See Rx Instructions PO TID ml 06/20/18 07/20/18 History oral liquid ciprofloxacin 500 mg tablet 500 mg PO DAILY tab 06/24/18 07/20/18 History ciprofloxacin 500 mg tablet 500 mg PO DAILY #14 tab 06/24/18 07/20/18 Rx Allergies Allergy/AdvReac Type Severity Reaction Status Date / Time No Known Allergies Allergy Verified 07/20/18 08:50 Past Med/Surg History Medical History Fistula Lethargy (Acute) Confusion (Acute) ESRD (end stage renal disease) (Chronic) Hemodialysis T/TR/S Chronic CHF (Chronic) HTN (hypertension) (Chronic) Ischemic cardiomyopathy (Chronic) 'presumed ischemic based on noninvasive cardiac testing' per cardio 01/10/18 Cellulitis of lower leg (Chronic) Pneumonia (Chronic) A-fib (Chronic) PERMANENT, ON COUMADIN Constipation (Chronic) Leukocytosis (Chronic) Anemia (Chronic) Occlusion of left subclavian artery (Chronic) Sepsis (Chronic) Altered mental status (Chronic) Diabetes (Chronic) TYPE II Hypothyroidism (Chronic) Gout Glaucoma S/P ORIF (open reduction internal fixation) fracture r arm GERD (gastroesophageal reflux disease) Carotid artery stenosis PVD (peripheral vascular disease) (Chronic) CAD (coronary artery disease) Pleural effusion Small R sided, noted on 01/12 CT Surgical History Hip fracture requiring operative repair S/P arteriovenous (AV) fistula creation L AC vein R wrist Status post implantation of automatic cardioverter/defibrillator (AICD) Inititially dual-chamber placed 08/22/09, replaced with single-chamber ICD 08/27/15 due to HOLLY AV fistula occlusion REQUIRING L ARM AVF TO R SUBCLAVIAN VEIN BYPASS H/O excision of Zenker's diverticulum Family History Other Family history non-contributory Social History Preferred Language: Kos[place] Beliefs That Will Affect Care: None Current Living Situation: [facility] Current Living Situation Comment: Patient is from the [facility] Feels Safe at Home: Yes Smoking Status: Never smoker Hx Alcohol Use: No Hx Substance Use: No Review of Systems See HPI for pertinent positives & negatives. Unobtainable due to cognitive status Physical Exam Vital Signs Vital Signs - 24 hr 07/20/18 09:39 07/20/18 10:21 07/20/18 11:09 Temperature Temperature Source Pulse Rate 65 Pulse Rate [Right Apical] 70 Pulse Rate from SpO2 Sensor Respiratory Rate 18 Blood Pressure 96/55 L Blood Pressure [Right Arm] 101/45 L Blood Pressure Mean 68 Blood Pressure Mean [Right Arm] 63 Blood Pressure Position [Right Arm] Pulse Oximetry 92 99 Oxygen Delivery Method Room Air Nasal Cannula Nasal Cannula Oxygen Flow Rate 0 2 07/20/18 11:10 07/20/18 11:20 07/20/18 11:30 Temperature Temperature Source Pulse Rate 72 74 Pulse Rate [Right Apical] Pulse Rate from SpO2 Sensor 77 67 70 Respiratory Rate 24 15 Blood Pressure Blood Pressure [Right Arm] Blood Pressure Mean Blood Pressure Mean [Right Arm] Blood Pressure Position [Right Arm] Pulse Oximetry 100 100 100 Oxygen Delivery Method Oxygen Flow Rate 07/20/18 11:31 07/20/18 11:40 07/20/18 11:50 Temperature Temperature Source Pulse Rate 63 73 79 Pulse Rate [Right Apical] Pulse Rate from SpO2 Sensor 72 76 76 Respiratory Rate 20 19 24 Blood Pressure 104/56 L Blood Pressure [Right Arm] Blood Pressure Mean 72 Blood Pressure Mean [Right Arm] Blood Pressure Position [Right Arm] Pulse Oximetry 100 100 96 Oxygen Delivery Method Oxygen Flow Rate 07/20/18 19:21 07/20/18 23:06 07/21/18 04:00 Temperature 36.1 C L 36.4 C L 36.8 C Temperature Source Oral Oral Oral Pulse Rate Pulse Rate [Right Apical] 79 76 62 Pulse Rate from SpO2 Sensor Respiratory Rate 32 H 16 20 Blood Pressure Blood Pressure [Right Arm] 118/73 93/53 L 95/56 L Blood Pressure Mean Blood Pressure Mean [Right Arm] 88 66 69 Blood Pressure Position [Right Arm] Right Lateral Right Lateral Pulse Oximetry 93 93 89 L Oxygen Delivery Method Room Air Room Air Oxygen Flow Rate 07/21/18 07:36 07/21/18 08:34 Temperature 36.4 C L Temperature Source Oral Pulse Rate Pulse Rate [Right Apical] 104 H Pulse Rate from SpO2 Sensor Respiratory Rate 18 Blood Pressure Blood Pressure [Right Arm] 81/46 L 84/50 L Blood Pressure Mean Blood Pressure Mean [Right Arm] 57 61 Blood Pressure Position [Right Arm] Lying Pulse Oximetry 91 Oxygen Delivery Method Room Air Oxygen Flow Rate GENERAL: Patient is lethargic and dose not respond to verbal commands. He does answer to loud verbal stimuli. EYES: Pupils are constricted and minimally reactive to light bilaterally. EARS, NOSE, MOUTH AND THROAT: The nose is without any evidence of deformity. Mucous membranes are dry. Tongue is midline. NECK: The neck is nontender and supple. Significant JVD is appreciated. RESPIRATORY: Normal respiratory effort is noted. Diminished throughout. There is no evidence of wheezing rhonchi or rales to auscultation. CARDIOVASCULAR: Irregular rhythm noted to auscultation. There is a systolic ejection murmur suggested. GASTROINTESTINAL: The abdomen is soft. Bowel sounds are present in all quadrants. Abdomen is nontender. MUSCULOSKELETAL/EXTREMITIES: Chronic deformities to bilateral lower extremities. SKIN: No significant pedal edema noted. There was venous stasis changes bilaterally. Significant swelling in the left upper extremity. There is a dialysis fistula in the left upper arm with a bruit noted to auscultation. NEUROLOGIC: Patient lethargic and does not respond to verbal commands. Course 0938: Past medical records reviewed. The patient was evaluated in room [facility], and a complete history and physical examination were performed. 1330: I reevaluated the patient and he is doing okay. 1337: I reviewed the patient's case with Dr. Ramila WU Hospitalist. She will evaluate the patient for further management. Consultations Consultation #1: I reviewed the patient's case with Dr. Ramila WU Hospitalist. She will evaluate the patient for further management. Time: 13:37 Administered Medications Acetaminophen (Tylenol) 1,000 mg PO TID [facility]MA Stop: 08/19/18 20:59 Last Admin: 07/21/18 08:40 Dose: 1,000 mg Documented by: [id number] Admin: 07/20/18 21:06 Dose: 1,000 mg Documented by: [id number] Allopurinol (Zyloprim) 150 mg PO QPM [facility] Stop: 08/19/18 20:59 Last Admin: 07/20/18 21:05 Dose: 150 mg Documented by: [id number] Ascorbic Acid (Vitamin C) 500 mg PO QAM [facility] Stop: 08/20/18 08:59 Last Admin: 07/21/18 08:40 Dose: 500 mg Documented by: [id number] Atorvastatin Calcium (Lipitor) 80 mg PO QPM [facility] Stop: 08/19/18 20:59 Last Admin: 07/20/18 21:06 Dose: 80 mg Documented by: [id number] Calcitriol (Racaltrol) 0.5 mcg PO TuThSa [facility] Stop: 08/20/18 08:59 Last Admin: 07/21/18 08:38 Dose: 0.5 mcg Documented by: [id number] Calcium Acetate (Phoslo) 667 mg PO QDD [facility] Stop: 08/19/18 16:29 Last Admin: 07/20/18 17:49 Dose: 667 mg Documented by: [id number] Carvedilol (Coreg) 6.25 mg PO BID [facility]MA Stop: 08/20/18 08:59 Last Admin: 07/21/18 08:28 Dose: Not Given Documented by: [id number] Sodium Chloride (Nss 1000ml) 1,000 mls @ 80 mls/hr IV .[id number] [facility] Stop: 08/19/18 15:31 Last Admin: 07/21/18 06:06 Dose: 80 mls/hr Documented by: [id number] Infusion: 07/21/18 04:59 Dose: 80 mls/hr Documented by: [id number] Admin: 07/20/18 16:29 Dose: 80 mls/hr Documented by: [id number] Piperacillin Sod/Tazobactam (Sod 3.375 gm/ Dextrose) 115 mls @ 28.75 mls/hr IV Q12H [facility]; Protocol Stop: 07/30/18 21:59 Last Infusion: 07/21/18 01:57 Dose: 0 mls/hr Documented by: [id number] Admin: 07/20/18 21:55 Dose: 28.8 mls/hr Documented by: [id number] Insulin Aspart (Novolog Flexpen) 0 units SC ACHS [facility] Stop: 08/19/18 16:29 Last Admin: 07/21/18 08:44 Dose: 2 units Documented by: [id number] Cosigned by: [id number] Admin: 07/20/18 21:09 Dose: 2 units Documented by: [id number] Cosigned by: [id number] Admin: 07/20/18 17:50 Dose: 7 units Documented by: [id number] Cosigned by: [id number] Levothyroxine Sodium (Synthroid) 175 mcg PO TODAY@0700 [facility] Stop: 08/20/18 06:59 Last Admin: 07/21/18 06:06 Dose: 175 mcg Documented by: [id number] Pantoprazole Sodium (Protonix) 40 mg PO HS [facility] Stop: 08/19/18 20:59 Last Admin: 07/20/18 21:06 Dose: 40 mg Documented by: [id number] Discontinued Medications Piperacillin Sod/Tazobactam Sod (Zosyn) 4.5 gm in 120 mls @ 240 mls/hr IV NOW ONE Stop: 07/20/18 13:37 Last Infusion: 07/20/18 13:40 Dose: 0 mls/hr Documented by: [id number] Admin: 07/20/18 13:33 Dose: 240 mls/hr Documented by: [id number] Sodium Chloride (Nss 1000ml) 1,000 mls @ 999 mls/hr IV .[id number] ONE Stop: 07/20/18 14:07 Last Infusion: 07/20/18 14:29 Dose: 0 mls/hr Documented by: [id number] Admin: 07/20/18 13:34 Dose: 999 mls/hr Documented by: [id number] Sodium Chloride (Nss) 500 mls @ 999 mls/hr IV .Q31M [facility] Stop: 07/20/18 18:15 Last Infusion: 07/20/18 19:19 Dose: 0 mls/hr Documented by: [id number] Admin: 07/20/18 18:38 Dose: 999 mls/hr Documented by: [id number] Medical Decision Making Differential Diagnosis Differential: Toxicological, Infectious, Stroke, SAH, Trauma, Electrolyte Abnormality, Hypoglycemia, Alcohol Intoxication, Drug Intoxication, Cardiac Abnormality, Sepsis, Meningitis/Encephalitis, Trauma, Excited Delirium, Serotonin Syndrome, Psychiatric, amongst other pathologies entertained. Medical Records Attestation: I reviewed the patient's medical records. Home Medications Current Medication List: was personally reviewed by me Laboratory Data Attestation: I reviewed the patient's lab results. Result diagrams: 07/21/18 07:54 07/21/18 07:54 Lab Results 07/20/18 07/20/18 07/20/18 Range/Units 09:20 09:20 09:20 WBC 10.27 (4.8-10.8) K/uL RBC 3.00 L (4.7-6.1) M/uL Hgb 10.8 L (14.0-18.0) g/dL Hct 32.5 L (42-52) % MCV 108.3 H (80-100) fL MCH 36.0 H (25-34) pg MCHC 33.2 (32-36) g/dL RDW Std Deviation 68.4 H (36.4-46.3) fL RDW Coeff of Reina 17.5 H (11.5-14.5) % Plt Count 193 (130-400) K/uL MPV 11.4 H (7.4-10.4) fL Immature Gran % (Auto) 0.2 % Neut % (Auto) 84.4 % Lymph % (Auto) 10.3 % [place] % (Auto) 4.6 % Eos % (Auto) 0.4 % Baso % (Auto) 0.1 % Immature Gran # (Auto) 0.02 (0.00-0.02) K/uL Neut # (Auto) 8.67 H (1.4-6.5) K/uL Lymph # (Auto) 1.06 L (1.2-3.4) K/uL [place] # (Auto) 0.47 (0.11-0.59) K/uL Eos # (Auto) 0.04 (0-0.5) K/uL Baso # (Auto) 0.01 (0-0.2) K/uL ESR > 90 H (0-14) mm/hr PT 48.8 H (9.0-12.0) Seconds INR 5.4 H (0.9-1.1) APTT 52.9 H* (21.0-31.0) Seconds PTT Ratio 2.0 VBG pH (7.36-7.41) VBG pCO2 (38-50) mmHg VBG pO2 mmHg VBG HCO3 mmol/L VBG O2 Saturation % VBG Base Excess mEq/L Barometric Pressure mm/Hg Sodium (136-145) mmol/L Potassium (3.5-5.1) mmol/L Chloride (98-107) mmol/L Carbon Dioxide (21-32) mmol/L Anion Gap (3-11) BUN (7-18) mg/dl Creatinine (0.6-1.4) mg/dl Est Cr Clr Drug Dosing ml/min Est GFR ( Amer) Est GFR (Non-Af Amer) BUN/Creatinine Ratio (10-20) Glucose (70-99) mg/dl POC Glucose (70-99) Lactate (0.4-2.0) mmol/L Calcium (8.5-10.1) mg/dl Phosphorus (2.5-4.9) mg/dl Magnesium (1.8-2.4) mg/dl Total Bilirubin (0.2-1) mg/dl AST (15-37) U/L ALT (12-78) U/L Alkaline Phosphatase (45-117) U/L Ammonia (11-32) umol/L Troponin I (0-0.045) ng/ml C-Reactive Protein (0-0.29) mg/dl Total Protein (6.4-8.2) gm/dl Albumin (3.4-5.0) gm/dl Globulin (2.5-4.0) gm/dl Albumin/Globulin Ratio (0.9-2) Folate Procalcitonin (0-0.5) ng/ml TSH (0.300-4.500) uIu/ml Urine Color Urine Appearance (Clear) Urine pH (4.5-7.5) Ur Specific [place] (1.000-1.030) Urine Protein (Negative) Urine Glucose (UA) (Negative) Urine Ketones (Negative) Urine Blood (Negative) Urine Nitrite (Negative) Urine Bilirubin (Negative) Urine Urobilinogen (Negative) Ur Leukocyte Esterase (Negative) Urine WBC (Auto) (0-5) /hpf Urine RBC (Auto) (0-4) /hpf U Hyaline Cast (Auto) (0-5) /lpf U Epithel Cells (Auto) (0-5) /lpf Urine Bacteria (Auto) (Negative) Urine Yeast Nasal Screen MRSA (PCR) (Negative) 07/20/18 07/20/18 07/20/18 Range/Units 09:20 09:20 10:04 WBC (4.8-10.8) K/uL RBC (4.7-6.1) M/uL Hgb (14.0-18.0) g/dL Hct (42-52) % MCV (80-100) fL MCH (25-34) pg MCHC (32-36) g/dL RDW Std Deviation (36.4-46.3) fL RDW Coeff of Reina (11.5-14.5) % Plt Count (130-400) K/uL MPV (7.4-10.4) fL Immature Gran % (Auto) % Neut % (Auto) % Lymph % (Auto) % [place] % (Auto) % Eos % (Auto) % Baso % (Auto) % Immature Gran # (Auto) (0.00-0.02) K/uL Neut # (Auto) (1.4-6.5) K/uL Lymph # (Auto) (1.2-3.4) K/uL [place] # (Auto) (0.11-0.59) K/uL Eos # (Auto) (0-0.5) K/uL Baso # (Auto) (0-0.2) K/uL ESR (0-14) mm/hr PT (9.0-12.0) Seconds INR (0.9-1.1) APTT (21.0-31.0) Seconds PTT Ratio VBG pH (7.36-7.41) VBG pCO2 (38-50) mmHg VBG pO2 mmHg VBG HCO3 mmol/L VBG O2 Saturation % VBG Base Excess mEq/L Barometric Pressure mm/Hg Sodium 139 (136-145) mmol/L Potassium 4.0 (3.5-5.1) mmol/L Chloride 100 (98-107) mmol/L Carbon Dioxide 32 (21-32) mmol/L Anion Gap 8.0 (3-11) BUN 38 H (7-18) mg/dl Creatinine 4.39 H (0.6-1.4) mg/dl Est Cr Clr Drug Dosing 12.4 ml/min Est GFR ( Amer) 13.2 Est GFR (Non-Af Amer) 11.4 BUN/Creatinine Ratio 8.7 L (10-20) Glucose 243 H (70-99) mg/dl POC Glucose (70-99) Lactate 3.1 H* (0.4-2.0) mmol/L Calcium 8.4 L (8.5-10.1) mg/dl Phosphorus (2.5-4.9) mg/dl Magnesium 2.0 (1.8-2.4) mg/dl Total Bilirubin 0.7 (0.2-1) mg/dl AST 29 (15-37) U/L ALT 20 (12-78) U/L Alkaline Phosphatase 204 H (45-117) U/L Ammonia (11-32) umol/L Troponin I 0.646 H* (0-0.045) ng/ml C-Reactive Protein 15.00 H (0-0.29) mg/dl Total Protein 7.7 (6.4-8.2) gm/dl Albumin 2.0 L (3.4-5.0) gm/dl Globulin 5.7 H (2.5-4.0) gm/dl Albumin/Globulin Ratio 0.4 L (0.9-2) Folate Procalcitonin 1.28 H (0-0.5) ng/ml TSH (0.300-4.500) uIu/ml Urine Color Urine Appearance (Clear) Urine pH (4.5-7.5) Ur Specific [place] (1.000-1.030) Urine Protein (Negative) Urine Glucose (UA) (Negative) Urine Ketones (Negative) Urine Blood (Negative) Urine Nitrite (Negative) Urine Bilirubin (Negative) Urine Urobilinogen (Negative) Ur Leukocyte Esterase (Negative) Urine WBC (Auto) (0-5) /hpf Urine RBC (Auto) (0-4) /hpf U Hyaline Cast (Auto) (0-5) /lpf U Epithel Cells (Auto) (0-5) /lpf Urine Bacteria (Auto) (Negative) Urine Yeast Nasal Screen MRSA (PCR) (Negative) 07/20/18 07/20/18 07/20/18 Range/Units 10:04 12:20 15:48 WBC (4.8-10.8) K/uL RBC (4.7-6.1) M/uL Hgb (14.0-18.0) g/dL Hct (42-52) % MCV (80-100) fL MCH (25-34) pg MCHC (32-36) g/dL RDW Std Deviation (36.4-46.3) fL RDW Coeff of Reina (11.5-14.5) % Plt Count (130-400) K/uL MPV (7.4-10.4) fL Immature Gran % (Auto) % Neut % (Auto) % Lymph % (Auto) % [place] % (Auto) % Eos % (Auto) % Baso % (Auto) % Immature Gran # (Auto) (0.00-0.02) K/uL Neut # (Auto) (1.4-6.5) K/uL Lymph # (Auto) (1.2-3.4) K/uL [place] # (Auto) (0.11-0.59) K/uL Eos # (Auto) (0-0.5) K/uL Baso # (Auto) (0-0.2) K/uL ESR (0-14) mm/hr PT (9.0-12.0) Seconds INR (0.9-1.1) APTT (21.0-31.0) Seconds PTT Ratio VBG pH 7.46 H (7.36-7.41) VBG pCO2 45 (38-50) mmHg VBG pO2 48 mmHg VBG HCO3 31 mmol/L VBG O2 Saturation 83.0 % VBG Base Excess 6.7 mEq/L Barometric Pressure 743.5 mm/Hg Sodium (136-145) mmol/L Potassium (3.5-5.1) mmol/L Chloride (98-107) mmol/L Carbon Dioxide (21-32) mmol/L Anion Gap (3-11) BUN (7-18) mg/dl Creatinine (0.6-1.4) mg/dl Est Cr Clr Drug Dosing ml/min Est GFR ( Amer) Est GFR (Non-Af Amer) BUN/Creatinine Ratio (10-20) Glucose (70-99) mg/dl POC Glucose (70-99) Lactate 3.1 H* (0.4-2.0) mmol/L Calcium (8.5-10.1) mg/dl Phosphorus (2.5-4.9) mg/dl Magnesium (1.8-2.4) mg/dl Total Bilirubin (0.2-1) mg/dl AST (15-37) U/L ALT (12-78) U/L Alkaline Phosphatase (45-117) U/L Ammonia (11-32) umol/L Troponin I (0-0.045) ng/ml C-Reactive Protein (0-0.29) mg/dl Total Protein (6.4-8.2) gm/dl Albumin (3.4-5.0) gm/dl Globulin (2.5-4.0) gm/dl Albumin/Globulin Ratio (0.9-2) Folate Procalcitonin (0-0.5) ng/ml TSH (0.300-4.500) uIu/ml Urine Color [place] Urine Appearance Cloudy H (Clear) Urine pH 8.0 H (4.5-7.5) Ur Specific [place] 1.016 (1.000-1.030) Urine Protein 2+ H (Negative) Urine Glucose (UA) Trace H (Negative) Urine Ketones Negative (Negative) Urine Blood 2+ H (Negative) Urine Nitrite Positive H (Negative) Urine Bilirubin Negative (Negative) Urine Urobilinogen Negative (Negative) Ur Leukocyte Esterase 1+ H (Negative) Urine WBC (Auto) 1-5 (0-5) /hpf Urine RBC (Auto) >30 H (0-4) /hpf U Hyaline Cast (Auto) 0 (0-5) /lpf U Epithel Cells (Auto) 0-5 (0-5) /lpf Urine Bacteria (Auto) Negative (Negative) Urine Yeast Not Reportable Nasal Screen MRSA (PCR) (Negative) 07/20/18 07/20/18 07/20/18 Range/Units 15:48 16:27 17:03 WBC (4.8-10.8) K/uL RBC (4.7-6.1) M/uL Hgb (14.0-18.0) g/dL Hct (42-52) % MCV (80-100) fL MCH (25-34) pg MCHC (32-36) g/dL RDW Std Deviation (36.4-46.3) fL RDW Coeff of Reina (11.5-14.5) % Plt Count (130-400) K/uL MPV (7.4-10.4) fL Immature Gran % (Auto) % Neut % (Auto) % Lymph % (Auto) % [place] % (Auto) % Eos % (Auto) % Baso % (Auto) % Immature Gran # (Auto) (0.00-0.02) K/uL Neut # (Auto) (1.4-6.5) K/uL Lymph # (Auto) (1.2-3.4) K/uL [place] # (Auto) (0.11-0.59) K/uL Eos # (Auto) (0-0.5) K/uL Baso # (Auto) (0-0.2) K/uL ESR (0-14) mm/hr PT (9.0-12.0) Seconds INR (0.9-1.1) APTT (21.0-31.0) Seconds PTT Ratio VBG pH (7.36-7.41) VBG pCO2 (38-50) mmHg VBG pO2 mmHg VBG HCO3 mmol/L VBG O2 Saturation % VBG Base Excess mEq/L Barometric Pressure mm/Hg Sodium (136-145) mmol/L Potassium (3.5-5.1) mmol/L Chloride (98-107) mmol/L Carbon Dioxide (21-32) mmol/L Anion Gap (3-11) BUN (7-18) mg/dl Creatinine (0.6-1.4) mg/dl Est Cr Clr Drug Dosing ml/min Est GFR ( Amer) Est GFR (Non-Af Amer) BUN/Creatinine Ratio (10-20) Glucose (70-99) mg/dl POC Glucose 176 H (70-99) Lactate (0.4-2.0) mmol/L Calcium (8.5-10.1) mg/dl Phosphorus 4.4 (2.5-4.9) mg/dl Magnesium (1.8-2.4) mg/dl Total Bilirubin (0.2-1) mg/dl AST (15-37) U/L ALT (12-78) U/L Alkaline Phosphatase (45-117) U/L Ammonia (11-32) umol/L Troponin I 0.805 H* (0-0.045) ng/ml C-Reactive Protein (0-0.29) mg/dl Total Protein (6.4-8.2) gm/dl Albumin (3.4-5.0) gm/dl Globulin (2.5-4.0) gm/dl Albumin/Globulin Ratio (0.9-2) Folate Procalcitonin (0-0.5) ng/ml TSH (0.300-4.500) uIu/ml Urine Color Urine Appearance (Clear) Urine pH (4.5-7.5) Ur Specific [place] (1.000-1.030) Urine Protein (Negative) Urine Glucose (UA) (Negative) Urine Ketones (Negative) Urine Blood (Negative) Urine Nitrite (Negative) Urine Bilirubin (Negative) Urine Urobilinogen (Negative) Ur Leukocyte Esterase (Negative) Urine WBC (Auto) (0-5) /hpf Urine RBC (Auto) (0-4) /hpf U Hyaline Cast (Auto) (0-5) /lpf U Epithel Cells (Auto) (0-5) /lpf Urine Bacteria (Auto) (Negative) Urine Yeast Nasal Screen MRSA (PCR) Negative (Negative) 07/20/18 07/20/18 07/21/18 Range/Units 20:23 22:28 07:48 WBC (4.8-10.8) K/uL RBC (4.7-6.1) M/uL Hgb (14.0-18.0) g/dL Hct (42-52) % MCV (80-100) fL MCH (25-34) pg MCHC (32-36) g/dL RDW Std Deviation (36.4-46.3) fL RDW Coeff of Reina (11.5-14.5) % Plt Count (130-400) K/uL MPV (7.4-10.4) fL Immature Gran % (Auto) % Neut % (Auto) % Lymph % (Auto) % [place] % (Auto) % Eos % (Auto) % Baso % (Auto) % Immature Gran # (Auto) (0.00-0.02) K/uL Neut # (Auto) (1.4-6.5) K/uL Lymph # (Auto) (1.2-3.4) K/uL [place] # (Auto) (0.11-0.59) K/uL Eos # (Auto) (0-0.5) K/uL Baso # (Auto) (0-0.2) K/uL ESR (0-14) mm/hr PT (9.0-12.0) Seconds INR (0.9-1.1) APTT (21.0-31.0) Seconds PTT Ratio VBG pH (7.36-7.41) VBG pCO2 (38-50) mmHg VBG pO2 mmHg VBG HCO3 mmol/L VBG O2 Saturation % VBG Base Excess mEq/L Barometric Pressure mm/Hg Sodium (136-145) mmol/L Potassium (3.5-5.1) mmol/L Chloride (98-107) mmol/L Carbon Dioxide (21-32) mmol/L Anion Gap (3-11) BUN (7-18) mg/dl Creatinine (0.6-1.4) mg/dl Est Cr Clr Drug Dosing ml/min Est GFR ( Amer) Est GFR (Non-Af Amer) BUN/Creatinine Ratio (10-20) Glucose (70-99) mg/dl POC Glucose 167 H 106 H (70-99) Lactate (0.4-2.0) mmol/L Calcium (8.5-10.1) mg/dl Phosphorus (2.5-4.9) mg/dl Magnesium (1.8-2.4) mg/dl Total Bilirubin (0.2-1) mg/dl AST (15-37) U/L ALT (12-78) U/L Alkaline Phosphatase (45-117) U/L Ammonia (11-32) umol/L Troponin I 0.776 H* (0-0.045) ng/ml C-Reactive Protein (0-0.29) mg/dl Total Protein (6.4-8.2) gm/dl Albumin (3.4-5.0) gm/dl Globulin (2.5-4.0) gm/dl Albumin/Globulin Ratio (0.9-2) Folate Procalcitonin (0-0.5) ng/ml TSH (0.300-4.500) uIu/ml Urine Color Urine Appearance (Clear) Urine pH (4.5-7.5) Ur Specific [place] (1.000-1.030) Urine Protein (Negative) Urine Glucose (UA) (Negative) Urine Ketones (Negative) Urine Blood (Negative) Urine Nitrite (Negative) Urine Bilirubin (Negative) Urine Urobilinogen (Negative) Ur Leukocyte Esterase (Negative) Urine WBC (Auto) (0-5) /hpf Urine RBC (Auto) (0-4) /hpf U Hyaline Cast (Auto) (0-5) /lpf U Epithel Cells (Auto) (0-5) /lpf Urine Bacteria (Auto) (Negative) Urine Yeast Nasal Screen MRSA (PCR) (Negative) 07/21/18 07/21/18 07/21/18 Range/Units 07:54 07:54 07:54 WBC 13.70 H (4.8-10.8) K/uL RBC 3.03 L (4.7-6.1) M/uL Hgb 10.8 L (14.0-18.0) g/dL Hct 32.4 L (42-52) % MCV 106.9 H (80-100) fL MCH 35.6 H (25-34) pg MCHC 33.3 (32-36) g/dL RDW Std Deviation 66.9 H (36.4-46.3) fL RDW Coeff of Reina 17.3 H (11.5-14.5) % Plt Count 188 (130-400) K/uL MPV 11.4 H (7.4-10.4) fL Immature Gran % (Auto) 0.3 % Neut % (Auto) 83.4 % Lymph % (Auto) 9.8 % [place] % (Auto) 5.5 % Eos % (Auto) 0.9 % Baso % (Auto) 0.1 % Immature Gran # (Auto) 0.04 H (0.00-0.02) K/uL Neut # (Auto) 11.43 H (1.4-6.5) K/uL Lymph # (Auto) 1.34 (1.2-3.4) K/uL [place] # (Auto) 0.76 H (0.11-0.59) K/uL Eos # (Auto) 0.12 (0-0.5) K/uL Baso # (Auto) 0.01 (0-0.2) K/uL ESR (0-14) mm/hr PT 59.9 H (9.0-12.0) Seconds INR 6.7 H* (0.9-1.1) APTT (21.0-31.0) Seconds PTT Ratio VBG pH (7.36-7.41) VBG pCO2 (38-50) mmHg VBG pO2 mmHg VBG HCO3 mmol/L VBG O2 Saturation % VBG Base Excess mEq/L Barometric Pressure mm/Hg Sodium 139 (136-145) mmol/L Potassium 4.9 D (3.5-5.1) mmol/L Chloride 103 (98-107) mmol/L Carbon Dioxide 27 (21-32) mmol/L Anion Gap 10.0 (3-11) BUN 47 H (7-18) mg/dl Creatinine 4.81 H* D (0.6-1.4) mg/dl Est Cr Clr Drug Dosing 11.2 ml/min Est GFR ( Amer) 11.9 Est GFR (Non-Af Amer) 10.2 BUN/Creatinine Ratio 9.9 L (10-20) Glucose 115 H (70-99) mg/dl POC Glucose (70-99) Lactate (0.4-2.0) mmol/L Calcium 8.9 (8.5-10.1) mg/dl Phosphorus (2.5-4.9) mg/dl Magnesium (1.8-2.4) mg/dl Total Bilirubin 0.9 (0.2-1) mg/dl AST 23 (15-37) U/L ALT 16 (12-78) U/L Alkaline Phosphatase 166 H (45-117) U/L Ammonia (11-32) umol/L Troponin I 0.432 H* (0-0.045) ng/ml C-Reactive Protein (0-0.29) mg/dl Total Protein 7.3 (6.4-8.2) gm/dl Albumin 2.0 L (3.4-5.0) gm/dl Globulin 5.3 H (2.5-4.0) gm/dl Albumin/Globulin Ratio 0.4 L (0.9-2) Folate Procalcitonin (0-0.5) ng/ml TSH 7.900 H (0.300-4.500) uIu/ml Urine Color Urine Appearance (Clear) Urine pH (4.5-7.5) Ur Specific [place] (1.000-1.030) Urine Protein (Negative) Urine Glucose (UA) (Negative) Urine Ketones (Negative) Urine Blood (Negative) Urine Nitrite (Negative) Urine Bilirubin (Negative) Urine Urobilinogen (Negative) Ur Leukocyte Esterase (Negative) Urine WBC (Auto) (0-5) /hpf Urine RBC (Auto) (0-4) /hpf U Hyaline Cast (Auto) (0-5) /lpf U Epithel Cells (Auto) (0-5) /lpf Urine Bacteria (Auto) (Negative) Urine Yeast Nasal Screen MRSA (PCR) (Negative) 07/21/18 07/21/18 07/21/18 Range/Units 07:54 08:30 08:30 WBC (4.8-10.8) K/uL RBC (4.7-6.1) M/uL Hgb (14.0-18.0) g/dL Hct (42-52) % MCV (80-100) fL MCH (25-34) pg MCHC (32-36) g/dL RDW Std Deviation (36.4-46.3) fL RDW Coeff of Reina (11.5-14.5) % Plt Count (130-400) K/uL MPV (7.4-10.4) fL Immature Gran % (Auto) % Neut % (Auto) % Lymph % (Auto) % [place] % (Auto) % Eos % (Auto) % Baso % (Auto) % Immature Gran # (Auto) (0.00-0.02) K/uL Neut # (Auto) (1.4-6.5) K/uL Lymph # (Auto) (1.2-3.4) K/uL [place] # (Auto) (0.11-0.59) K/uL Eos # (Auto) (0-0.5) K/uL Baso # (Auto) (0-0.2) K/uL ESR (0-14) mm/hr PT (9.0-12.0) Seconds INR (0.9-1.1) APTT (21.0-31.0) Seconds PTT Ratio VBG pH (7.36-7.41) VBG pCO2 (38-50) mmHg VBG pO2 mmHg VBG HCO3 mmol/L VBG O2 Saturation % VBG Base Excess mEq/L Barometric Pressure mm/Hg Sodium Cancelled (136-145) mmol/L Potassium Cancelled (3.5-5.1) mmol/L Chloride Cancelled (98-107) mmol/L Carbon Dioxide Cancelled (21-32) mmol/L Anion Gap Cancelled (3-11) BUN Cancelled (7-18) mg/dl Creatinine Cancelled (0.6-1.4) mg/dl Est Cr Clr Drug Dosing Cancelled ml/min Est GFR ( Amer) Cancelled Est GFR (Non-Af Amer) Cancelled BUN/Creatinine Ratio Cancelled (10-20) Glucose Cancelled (70-99) mg/dl POC Glucose (70-99) Lactate 2.8 H* 3.4 H* (0.4-2.0) mmol/L Calcium Cancelled (8.5-10.1) mg/dl Phosphorus 4.2 (2.5-4.9) mg/dl Magnesium 2.0 (1.8-2.4) mg/dl Total Bilirubin Cancelled (0.2-1) mg/dl AST Cancelled (15-37) U/L ALT Cancelled (12-78) U/L Alkaline Phosphatase Cancelled (45-117) U/L Ammonia (11-32) umol/L Troponin I (0-0.045) ng/ml C-Reactive Protein (0-0.29) mg/dl Total Protein Cancelled (6.4-8.2) gm/dl Albumin Cancelled (3.4-5.0) gm/dl Globulin Cancelled (2.5-4.0) gm/dl Albumin/Globulin Ratio Cancelled (0.9-2) Folate Procalcitonin (0-0.5) ng/ml TSH (0.300-4.500) uIu/ml Urine Color Urine Appearance (Clear) Urine pH (4.5-7.5) Ur Specific [place] (1.000-1.030) Urine Protein (Negative) Urine Glucose (UA) (Negative) Urine Ketones (Negative) Urine Blood (Negative) Urine Nitrite (Negative) Urine Bilirubin (Negative) Urine Urobilinogen (Negative) Ur Leukocyte Esterase (Negative) Urine WBC (Auto) (0-5) /hpf Urine RBC (Auto) (0-4) /hpf U Hyaline Cast (Auto) (0-5) /lpf U Epithel Cells (Auto) (0-5) /lpf Urine Bacteria (Auto) (Negative) Urine Yeast Nasal Screen MRSA (PCR) (Negative) 07/21/18 07/21/18 Range/Units 08:30 08:30 WBC (4.8-10.8) K/uL RBC (4.7-6.1) M/uL Hgb (14.0-18.0) g/dL Hct (42-52) % MCV (80-100) fL MCH (25-34) pg MCHC (32-36) g/dL RDW Std Deviation (36.4-46.3) fL RDW Coeff of Reina (11.5-14.5) % Plt Count (130-400) K/uL MPV (7.4-10.4) fL Immature Gran % (Auto) % Neut % (Auto) % Lymph % (Auto) % [place] % (Auto) % Eos % (Auto) % Baso % (Auto) % Immature Gran # (Auto) (0.00-0.02) K/uL Neut # (Auto) (1.4-6.5) K/uL Lymph # (Auto) (1.2-3.4) K/uL [place] # (Auto) (0.11-0.59) K/uL Eos # (Auto) (0-0.5) K/uL Baso # (Auto) (0-0.2) K/uL ESR (0-14) mm/hr PT (9.0-12.0) Seconds INR (0.9-1.1) APTT (21.0-31.0) Seconds PTT Ratio VBG pH (7.36-7.41) VBG pCO2 (38-50) mmHg VBG pO2 mmHg VBG HCO3 mmol/L VBG O2 Saturation % VBG Base Excess mEq/L Barometric Pressure mm/Hg Sodium (136-145) mmol/L Potassium (3.5-5.1) mmol/L Chloride (98-107) mmol/L Carbon Dioxide (21-32) mmol/L Anion Gap (3-11) BUN (7-18) mg/dl Creatinine (0.6-1.4) mg/dl Est Cr Clr Drug Dosing ml/min Est GFR ( Amer) Est GFR (Non-Af Amer) BUN/Creatinine Ratio (10-20) Glucose (70-99) mg/dl POC Glucose (70-99) Lactate (0.4-2.0) mmol/L Calcium (8.5-10.1) mg/dl Phosphorus (2.5-4.9) mg/dl Magnesium (1.8-2.4) mg/dl Total Bilirubin (0.2-1) mg/dl AST (15-37) U/L ALT (12-78) U/L Alkaline Phosphatase (45-117) U/L Ammonia 20.8 (11-32) umol/L Troponin I (0-0.045) ng/ml C-Reactive Protein (0-0.29) mg/dl Total Protein (6.4-8.2) gm/dl Albumin (3.4-5.0) gm/dl Globulin (2.5-4.0) gm/dl Albumin/Globulin Ratio (0.9-2) Folate Cancelled Procalcitonin (0-0.5) ng/ml TSH (0.300-4.500) uIu/ml Urine Color Urine Appearance (Clear) Urine pH (4.5-7.5) Ur Specific [place] (1.000-1.030) Urine Protein (Negative) Urine Glucose (UA) (Negative) Urine Ketones (Negative) Urine Blood (Negative) Urine Nitrite (Negative) Urine Bilirubin (Negative) Urine Urobilinogen (Negative) Ur Leukocyte Esterase (Negative) Urine WBC (Auto) (0-5) /hpf Urine RBC (Auto) (0-4) /hpf U Hyaline Cast (Auto) (0-5) /lpf U Epithel Cells (Auto) (0-5) /lpf Urine Bacteria (Auto) (Negative) Urine Yeast Nasal Screen MRSA (PCR) (Negative) Imaging Data Radiologist's Impression: Radiology results as stated below per my review and the radiologist's interpretation: XR chest 1V portable HISTORY: 83 years-old Male Sepsis acute sepsis COMPARISON: Chest radiograph 05/13/2018 TECHNIQUE: Portable AP view of the chest FINDINGS: Cardiac silhouette is enlarged, unchanged. Stable positioning of the left subclavian pacer/AICD. Right internal jugular central venous catheter appears unchanged. Calcification of the thoracic aorta. Trace left pleural effusion. No pneumothorax. Pulmonary vascular congestion with bilateral interstitial coarsening. Left greater than right bibasilar opacities. Degenerative changes of the shoulders and spine. Remote appearing right proximal humeral fracture. IMPRESSION: 1. Cardiomegaly with mild pulmonary edema. 2. Trace left pleural effusion with left greater than right bibasilar opacities suggestive of atelectasis. Pneumonitis considered less likely. The above report was generated using voice recognition software. It may contain grammatical, syntax or spelling errors. Electronically signed by: Chang Aguayo M.D. 07/20/2018 10:[address] OF THE HEAD WITHOUT CONTRAST CLINICAL HISTORY: Altered mental status. COMPARISON STUDY: Head CT May 13, 2018. CT DOSE: 537.48 mGy.cm TECHNIQUE: Helical axial images of the head were obtained without IV contrast. Automated exposure control was utilized for the study. A dose lowering technique was utilized adhering to the principles of ALARA. FINDINGS: No acute intracranial hemorrhage, midline shift or mass effect is present. 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 This is unchanged. Ventricular system is stable. Basilar cisterns are patent. There are no extra- axial collections. White hypodensities suggest moderate small vessel disease. There is extensive intracranial vascular calcification. There are no findings to suggest acute dural sinus thrombosis or acute territorial infarct. There are no significant calvarial abnormalities. There is mild sinus mucosal thickening. IMPRESSION: No acute intracranial findings. Electronically signed by: Jorge Pardo M.D. 07/20/2018 11:09 AM ECG Data Attestation: I personally reviewed and interpreted this ECG as follows: Indication: altered mental status Rate (beats per minute): 69 Rhythm: atrial fibrillation Findings: + other (v-paced beats noted) and + PVC Comparison ECG Date: from (05/13/2018) Change: no significant change Blood Pressure Blood Pressure Findings: Low blood pressure Blood Pressure Disposition: further management by hospitalist MDM Narrative The patient is an 83-year-old male who presented to the emergency department for an evaluation. The patient was felt to be altered in his mental status. He does have a history of skin infections. He was found to have an elevated white blood cell count. I reviewed the patient's laboratory and radiographic studies and he was treated with a small fluid bolus as well as IV antibiotics. I did discuss his case with the on-call [facility] hospitalist group. They have agreed to evaluate the patient in the emergency department for further management and disposition. Impression & Plan Altered mental status, Lactic acidosis, UTI (urinary tract infection), Elevated troponin Discharge Plan Visit Data *Final* Discharge Date/Time: 07/20/18 14:50 Chief Complaint: Lethargic ED Provider: Zaki Almeida Discharge Problem: Altered mental status, Lactic acidosis, UTI (urinary tract infection), Elevated troponin Patient Disposition: Admitted As Inpatient Discharge Instructions Interventions: ED Discharge Assessment Last Done: 07/20/18 14:50 Discharge Problem: Altered mental status Qualifiers: Altered mental status type: unspecified Qualified Code(s): R41.82 - Altered mental status, unspecified UTI (urinary tract infection) Qualifiers: Urinary tract infection type: site unspecified Hematuria presence: with hematuria Qualified Code(s): N39.0 - Urinary tract infection, site not specified The scribe's documentation has been prepared under my direction and personally reviewed by me in its entirety. I confirm that the note above accurately reflects all work, treatment, procedures, and medical decision making performed by me.
[2018-07-20 16:25] LABS: Phosphorus 4.4 mg/dl (2.5-4.9); Troponin I 0.805 ng/ml (0-0.045)
[2018-07-20] MEDS: SODIUM CHLORIDE 0.9% 1000ML 1,000 ML IV SCH (16:29)
[2018-07-20] MEDS ORDERED: AMINO AC PROTEIN HYDR WHEY PRO PO SCH (17:00)
[2018-07-20] MEDS ORDERED: SODIUM CHLORIDE 0.9% 500 ML IV SCH (17:45)
[2018-07-20] MEDS: CALCIUM ACETATE 667 MG CAP PO SCH (17:49)
[2018-07-20] MEDS: INSULIN ASPART 100 UNITS/ML 3 ML PEN SC SCH ×2 (17:50→21:09)
[2018-07-20] MEDS ORDERED: INSULIN ASPART SQ SCH (21:00)
[2018-07-20] MEDS ORDERED: ASPIRIN 81 MG ECTAB PO SCH (21:00)
[2018-07-20] MEDS ORDERED: FOOD SUPPLEMT LACTOSE REDUCED PO SCH (21:00)
[2018-07-20] MEDS: ALLOPURINOL 300 MG TAB PO SCH (21:05)
[2018-07-20] MEDS: ACETAMINOPHEN 500 MG TAB PO SCH (21:06)
[2018-07-20] MEDS: PANTOprazole 40 MG TAB PO SCH (21:06)
[2018-07-20] MEDS: ATORVASTATIN 40 MG TAB PO SCH (21:06)
[2018-07-20] MEDS: TRAVOPROST Z 0.004% OPH SOLN 2.5 ML BTL OPB SCH (21:08)
--- NOTE | 2018-07-20 21:19 | Nephrology Consultation ---
Date of Consultation July 20, 2018 Assessment & Plan (1) Altered mental status: Etiology unclear. Patient's baseline dementia noted. History of significant delerium also noted in records from prior hospitalization. Staff from the dialysis unit report that the patient's mental status is known to wax and wane. His dementia has been progressive but his baseline is not known to me. Evaluation for infection. (2) ESRD (end stage renal disease): Plan HD tomorrow per TTS schedule. There is no emergent indication. Avoid mIVF or significantly positive fluid balance. BP, volume status are currently acceptable. Metabolic profile is appropriate. The patient's condition at baseline is guarded. Medications are appropriately dosed for kidney function including Zosyn. (3) Ischemic cardiomyopathy: History of Present Illness Reason for Consultation: ESRD Requesting Physician: Iris Nelson DO Attending Physician: Iris Nelson DO History of Present Illness Mr. Alphonse Morrow is a severely frail and chronically ill 83-year-old male with dementia, baseline non ambulatory functional status, advanced ischemic cardiomyopathy with chronic systolic CHF (LVEF 20%), biventricular pacer, PAD, atrial fibrillation, diabetes mellitus, hypertension, dyslipidemia, gout, and CKD. It is noted that the patient's functional status has significantly declined over the past year. His dementia has been worsening over the past several months. He suffered a spiral fracture of the distal tibial diaphesis in February 2018. He was deemed not to be a surgical candidate. He functional status was non ambulatory prior to the fracture. CKD has been attributed to vascular disease, hypertension, and diabetes. Alphonse has been maintained on hemodialysis since 2015. He dialyzes at the [facility] HD [facility] in [facility] under the care of Dr. Dra boyce. Alphonse is on a TTS HD schedule. He completed his scheduled treatment on Wednesday without complications and was found by staff in his usual state of health at that time. I spoke to nursing staff at the HD unit earlier this afternoon. Alphonse has a well functioning AVF in the LUE with known central stenosis bypassed by a HeRO graft to the right IJ. He presented to the ED at [facility] earlier this afternoon from the retirement facility where he resides with acute mental status changes. Evaluation was notable for a slightly elevated troponin and slightly elevated serum LA without acidemia. INR was also notably elevated. CT of the head did not reveal any acute findings. There were no acute EKG findings. CXR demonstrates cardiomegally with pulmonary edema and bibasilar opacities (L>R). No new contributory medications were noted. Alphonse is afebrile but temperature is slightly low. He did not endorse any specific complaints during my assessment this afternoon but was noted to be significantly confused and not oriented to place or time. Alphonse was not able to provide any medical history. Allergies Allergy/AdvReac Type Severity Reaction Status Date / Time No Known Allergies Allergy Verified 07/20/18 08:50 Home Medications Home Medications Medication Instructions Recorded Confirmed Type allopurinol 150 mg PO QPM 02/07/18 07/20/18 History amoxicillin 4 cap PO DIRECTED PRN 02/07/18 07/20/18 History aspirin 81 mg PO QPM 02/07/18 07/20/18 History atorvastatin 80 mg PO QPM 02/07/18 07/20/18 History calcitriol 0.5 mcg PO 3XWK 02/07/18 07/20/18 History calcium acetate 667 mg PO QDD 02/07/18 07/20/18 History carvedilol 6.25 mg PO BID17 02/07/18 07/20/18 History levothyroxine 175 mcg PO QAM 02/07/18 07/20/18 History pantoprazole 40 mg PO HS 02/07/18 07/20/18 History multivitamin 1 tab PO QAM 03/14/18 07/20/18 History ondansetron HCl [Zofran] 4 mg PO Q6 PRN 03/14/18 07/20/18 History acetaminophen 500 mg tablet 1,000 mg PO TID tab 04/15/18 07/20/18 History amino acid-protein hydr-whey prot 30 ml PO BID17 ml 04/15/18 07/20/18 History 15 gram-100 kcal/30 mL liquid packet ascorbic acid (vitamin C) 500 mg 500 mg PO QAM 04/15/18 07/20/18 History tablet insulin aspart U- 100 100 unit/mL See Rx Instructions SQ BID ml 04/15/18 07/20/18 History subcutaneous solution oxycodone 5 mg capsule 5 mg PO Q4H PRN cap 04/15/18 07/20/18 History polyethylene glycol 3350 17 17 gm PO DAILY PRN gm 04/15/18 07/20/18 History gram/dose oral powder warfarin 1 mg tablet 1 mg PO 5XWK 04/15/18 07/20/18 History warfarin 1 mg tablet 2 mg PO 2XWK tab 04/15/18 07/20/18 History zinc sulfate 220 mg tablet 220 mg PO QAM tab 04/15/18 07/20/18 History cadexomer iodine [Iodosorb] 1 applic TOPICAL QAM 05/13/18 07/20/18 History travoprost [Travatan Z] 1 drp OPB HS 05/13/18 07/20/18 History vit C-vit S-zkzlhp-lvam-lutein 1 cap PO QAM 05/13/18 07/20/18 History [PreserVision Lutein] bisacodyl [Dulcolax (bisacodyl)] 10 mg FL DAILY PRN 05/15/18 07/20/18 History food supplement, lactose-reduced See Rx Instructions PO TID ml 06/20/18 07/20/18 History oral liquid ciprofloxacin 500 mg tablet 500 mg PO DAILY tab 06/24/18 07/20/18 History ciprofloxacin 500 mg tablet 500 mg PO DAILY #14 tab 06/24/18 07/20/18 Rx Patient History Medical History Fistula Lethargy (Acute) Confusion (Acute) ESRD (end stage renal disease) (Chronic) Hemodialysis T/TR/S Chronic CHF (Chronic) HTN (hypertension) (Chronic) Ischemic cardiomyopathy (Chronic) 'presumed ischemic based on noninvasive cardiac testing' per cardio 01/10/18 Cellulitis of lower leg (Chronic) Pneumonia (Chronic) A-fib (Chronic) PERMANENT, ON COUMADIN Constipation (Chronic) Leukocytosis (Chronic) Anemia (Chronic) Occlusion of left subclavian artery (Chronic) Sepsis (Chronic) Altered mental status (Chronic) Diabetes (Chronic) TYPE II Hypothyroidism (Chronic) Gout Glaucoma S/P ORIF (open reduction internal fixation) fracture r arm GERD (gastroesophageal reflux disease) Carotid artery stenosis PVD (peripheral vascular disease) (Chronic) CAD (coronary artery disease) Pleural effusion Small R sided, noted on 01/12 CT Surgical History Hip fracture requiring operative repair S/P arteriovenous (AV) fistula creation L AC vein R wrist Status post implantation of automatic cardioverter/defibrillator (AICD) Inititially dual-chamber placed 08/22/09, replaced with single-chamber ICD 08/27/15 due to HOLLY AV fistula occlusion REQUIRING L ARM AVF TO R SUBCLAVIAN VEIN BYPASS H/O excision of Zenker's diverticulum Family History Other Family history non-contributory Social History Preferred Language: Armenian Beliefs That Will Affect Care: None Current Living Situation: Halfway Current Living Situation Comment: Patient is from the [facility] Feels Safe at Home: Yes Smoking Status: Never smoker Hx Alcohol Use: No Hx Substance Use: No Review of Systems Unable to obtain due to mental status changes. Physical Exam Vital Signs (Past 24 Hours): Last Vital Signs Temp 36.1 C L 07/20/18 19:21 Pulse 79 07/20/18 19:21 Resp 32 H 07/20/18 19:21 BP 118/73 07/20/18 19:21 Pulse Ox 93 07/20/18 19:21 Constitutional: + cachectic and + frail appearing Eyes: + anicteric sclerae ENMT: Mouth: + dry oral mucous membranes, + dentures and + poor dentition Neck: normal visual inspection and trachea midline Respiratory: normal respiratory effort Auscultation: lungs clear to auscultation bilaterally and + rales Cardiovascular: Rate/Rhythm: regular rate Heart Sounds: normal S1, normal S2 and + murmur Extremities: + AV fistula Gastrointestinal (Abdomen): Inspection/Auscultation: abdomen normal to inspection Percussion/Palpation: abdomen soft Musculoskeletal: no cyanosis or clubbing, extremities motor strength 5/5 Skin: no rashes, warm and dry + turgor decreased Neurologic: awake and + confused Results & Data Laboratory Results Laboratory Results - last 24 hr 07/20/18 07/20/18 07/20/18 09:20 09:20 09:20 WBC 10.27 RBC 3.00 L Hgb 10.8 L Hct 32.5 L MCV 108.3 H MCH 36.0 H MCHC 33.2 RDW Std Deviation 68.4 H RDW Coeff of Reina 17.5 H Plt Count 193 MPV 11.4 H Immature Gran % (Auto) 0.2 Neut % (Auto) 84.4 Lymph % (Auto) 10.3 [place] % (Auto) 4.6 Eos % (Auto) 0.4 Baso % (Auto) 0.1 Immature Gran # (Auto) 0.02 Neut # (Auto) 8.67 H Lymph # (Auto) 1.06 L [place] # (Auto) 0.47 Eos # (Auto) 0.04 Baso # (Auto) 0.01 ESR > 90 H PT 48.8 H INR 5.4 H APTT 52.9 H* PTT Ratio 2.0 VBG pH VBG pCO2 VBG pO2 VBG HCO3 VBG O2 Saturation VBG Base Excess Barometric Pressure Sodium Potassium Chloride Carbon Dioxide Anion Gap BUN Creatinine Est Cr Clr Drug Dosing Est GFR ( Amer) Est GFR (Non-Af Amer) BUN/Creatinine Ratio Glucose POC Glucose Lactate Calcium Phosphorus Magnesium Total Bilirubin AST ALT Alkaline Phosphatase Troponin I C-Reactive Protein Total Protein Albumin Globulin Albumin/Globulin Ratio Procalcitonin Urine Color Urine Appearance Urine pH Ur Specific [place] Urine Protein Urine Glucose (UA) Urine Ketones Urine Blood Urine Nitrite Urine Bilirubin Urine Urobilinogen Ur Leukocyte Esterase Urine WBC (Auto) Urine RBC (Auto) U Hyaline Cast (Auto) U Epithel Cells (Auto) Urine Bacteria (Auto) Urine Yeast Nasal Screen MRSA (PCR) 07/20/18 07/20/18 07/20/18 09:20 09:20 10:04 WBC RBC Hgb Hct MCV MCH MCHC RDW Std Deviation RDW Coeff of Reina Plt Count MPV Immature Gran % (Auto) Neut % (Auto) Lymph % (Auto) [place] % (Auto) Eos % (Auto) Baso % (Auto) Immature Gran # (Auto) Neut # (Auto) Lymph # (Auto) [place] # (Auto) Eos # (Auto) Baso # (Auto) ESR PT INR APTT PTT Ratio VBG pH VBG pCO2 VBG pO2 VBG HCO3 VBG O2 Saturation VBG Base Excess Barometric Pressure Sodium 139 Potassium 4.0 Chloride 100 Carbon Dioxide 32 Anion Gap 8.0 BUN 38 H Creatinine 4.39 H Est Cr Clr Drug Dosing 12.4 Est GFR ( Amer) 13.2 Est GFR (Non-Af Amer) 11.4 BUN/Creatinine Ratio 8.7 L Glucose 243 H POC Glucose Lactate 3.1 H* Calcium 8.4 L Phosphorus Magnesium 2.0 Total Bilirubin 0.7 AST 29 ALT 20 Alkaline Phosphatase 204 H Troponin I 0.646 H* C-Reactive Protein 15.00 H Total Protein 7.7 Albumin 2.0 L Globulin 5.7 H Albumin/Globulin Ratio 0.4 L Procalcitonin 1.28 H Urine Color Urine Appearance Urine pH Ur Specific [place] Urine Protein Urine Glucose (UA) Urine Ketones Urine Blood Urine Nitrite Urine Bilirubin Urine Urobilinogen Ur Leukocyte Esterase Urine WBC (Auto) Urine RBC (Auto) U Hyaline Cast (Auto) U Epithel Cells (Auto) Urine Bacteria (Auto) Urine Yeast Nasal Screen MRSA (PCR) 07/20/18 07/20/18 07/20/18 10:04 12:20 15:48 WBC RBC Hgb Hct MCV MCH MCHC RDW Std Deviation RDW Coeff of Reina Plt Count MPV Immature Gran % (Auto) Neut % (Auto) Lymph % (Auto) [place] % (Auto) Eos % (Auto) Baso % (Auto) Immature Gran # (Auto) Neut # (Auto) Lymph # (Auto) [place] # (Auto) Eos # (Auto) Baso # (Auto) ESR PT INR APTT PTT Ratio VBG pH 7.46 H VBG pCO2 45 VBG pO2 48 VBG HCO3 31 VBG O2 Saturation 83.0 VBG Base Excess 6.7 Barometric Pressure 743.5 Sodium Potassium Chloride Carbon Dioxide Anion Gap BUN Creatinine Est Cr Clr Drug Dosing Est GFR ( Amer) Est GFR (Non-Af Amer) BUN/Creatinine Ratio Glucose POC Glucose Lactate 3.1 H* Calcium Phosphorus Magnesium Total Bilirubin AST ALT Alkaline Phosphatase Troponin I C-Reactive Protein Total Protein Albumin Globulin Albumin/Globulin Ratio Procalcitonin Urine Color [place] Urine Appearance Cloudy H Urine pH 8.0 H Ur Specific [place] 1.016 Urine Protein 2+ H Urine Glucose (UA) Trace H Urine Ketones Negative Urine Blood 2+ H Urine Nitrite Positive H Urine Bilirubin Negative Urine Urobilinogen Negative Ur Leukocyte Esterase 1+ H Urine WBC (Auto) 1-5 Urine RBC (Auto) >30 H U Hyaline Cast (Auto) 0 U Epithel Cells (Auto) 0-5 Urine Bacteria (Auto) Negative Urine Yeast Not Reportable Nasal Screen MRSA (PCR) 07/20/18 07/20/18 07/20/18 15:48 16:27 17:03 WBC RBC Hgb Hct MCV MCH MCHC RDW Std Deviation RDW Coeff of Reina Plt Count MPV Immature Gran % (Auto) Neut % (Auto) Lymph % (Auto) [place] % (Auto) Eos % (Auto) Baso % (Auto) Immature Gran # (Auto) Neut # (Auto) Lymph # (Auto) [place] # (Auto) Eos # (Auto) Baso # (Auto) ESR PT INR APTT PTT Ratio VBG pH VBG pCO2 VBG pO2 VBG HCO3 VBG O2 Saturation VBG Base Excess Barometric Pressure Sodium Potassium Chloride Carbon Dioxide Anion Gap BUN Creatinine Est Cr Clr Drug Dosing Est GFR ( Amer) Est GFR (Non-Af Amer) BUN/Creatinine Ratio Glucose POC Glucose 176 H Lactate Calcium Phosphorus 4.4 Magnesium Total Bilirubin AST ALT Alkaline Phosphatase Troponin I 0.805 H* C-Reactive Protein Total Protein Albumin Globulin Albumin/Globulin Ratio Procalcitonin Urine Color Urine Appearance Urine pH Ur Specific [place] Urine Protein Urine Glucose (UA) Urine Ketones Urine Blood Urine Nitrite Urine Bilirubin Urine Urobilinogen Ur Leukocyte Esterase Urine WBC (Auto) Urine RBC (Auto) U Hyaline Cast (Auto) U Epithel Cells (Auto) Urine Bacteria (Auto) Urine Yeast Nasal Screen MRSA (PCR) Negative 07/20/18 20:23 WBC RBC Hgb Hct MCV MCH MCHC RDW Std Deviation RDW Coeff of Reina Plt Count MPV Immature Gran % (Auto) Neut % (Auto) Lymph % (Auto) [place] % (Auto) Eos % (Auto) Baso % (Auto) Immature Gran # (Auto) Neut # (Auto) Lymph # (Auto) [place] # (Auto) Eos # (Auto) Baso # (Auto) ESR PT INR APTT PTT Ratio VBG pH VBG pCO2 VBG pO2 VBG HCO3 VBG O2 Saturation VBG Base Excess Barometric Pressure Sodium Potassium Chloride Carbon Dioxide Anion Gap BUN Creatinine Est Cr Clr Drug Dosing Est GFR ( Amer) Est GFR (Non-Af Amer) BUN/Creatinine Ratio Glucose POC Glucose 167 H Lactate Calcium Phosphorus Magnesium Total Bilirubin AST ALT Alkaline Phosphatase Troponin I C-Reactive Protein Total Protein Albumin Globulin Albumin/Globulin Ratio Procalcitonin Urine Color Urine Appearance Urine pH Ur Specific [place] Urine Protein Urine Glucose (UA) Urine Ketones Urine Blood Urine Nitrite Urine Bilirubin Urine Urobilinogen Ur Leukocyte Esterase Urine WBC (Auto) Urine RBC (Auto) U Hyaline Cast (Auto) U Epithel Cells (Auto) Urine Bacteria (Auto) Urine Yeast Nasal Screen MRSA (PCR) (1) Altered mental status Altered mental status type: unspecified Qualified Code(s): R41.82 - Altered mental status, unspecified
[2018-07-20] MEDS: PIPERACILLIN/TAZOBACTAM 3.375 GM in DEXTROSE 5% 100 ML IV SCH (21:55)
--- NOTE | 2018-07-20 22:14 | History & Physical Report ---
Date of Service July 20, 2018 Assessment & Plan (1) Altered mental status: Patient somnolent, confused. ?delirium on dementia. Possibly secondary to underlying infection. CT head WNL. UA suggests infection -Admit to medical floor -Montior electrolytes -Follow cultures -Check TSH -Monitor saturation, heart rhythm -Frequent orientation (2) Lactic acidosis: Possibly secondary to underlying infection. Patient is afebrile, hemodynamically stable. No evidence of ischemia -IVF -Repeat lactate -HD monitoring (3) UTI (urinary tract infection): UA suggestive of infection -Follow culture results -Empiric antibiotic coverage with Zosyn (4) Elevated troponin: Patient with history of the same. Known CAD. EKG without acute ischemic changes -Repeat troponin -Continue cardiac medications, Atorvastatin, Carvedilol -Hold ASA for now in setting of elevated INR (5) ESRD (end stage renal disease): ESRD on HD q T/R/S. Last treatment was Wednesday. Well tolerated. Electrolytes and metabolic panel acceptable. No need for urgent HD -Renal consult - appreciate assistance -Plan for HD tomorrow -Renal dosing where appropriate -Continue Calcitriol -Continue PhosLo, check PO4 level (6) Chronic CHF: Patient with CAD, ICM with poor EF of 20-25%. APpears to be euvolemic at present -Continue Carvedilol -Monitor for volume overload (7) HTN (hypertension): Blood pressure well controlled at present -Continue Carvedilol (8) Ischemic cardiomyopathy: As above (9) A-fib: Rate controlled. On Coumadin anticoagulation. Supratherapeutic INR at 5.4 today. Possibly secondary to antibiotic use/Cipro? No active bleeding. Pt HD stable -Hold Coumadin -INR daily (10) Anemia: Stable anemia, macrocytic. Most likely secondary to underlying renal disease -Check B12 and Folate with AM labs -Monitor CBC (11) Diabetes: BS elevated at 243 -Continue insulin and ISS -Continue to monitor (12) Hypothyroidism: Check TFTs -Continue Synthroid (13) Gout: Chronic -Continue Allopurinol (14) GERD (gastroesophageal reflux disease): Chronic -Continue Protonix Skin Wounds -Wound care consult -Continue Vitamin C and Zinc supplements, frequent turning F/E/N -Gentle IVF in setting of ESRD Ppx - Holding chemical prophylaxis in setting of elevated INR. Protonix Code - DNR Dispo - Observation to medical floor History of Present Illness Chief Complaint: metabolic encephalopathy Primary Care Provider: Quinten Ramirez MD Mr. Morrow is an 83yo C male with multiple medical comorbidities to include ESRD on HD q T/R/S, Atrial fibrillation, CAD with Ischemic Cardiomyopathy, EF of 20-25%, s/p BiV pacer, Gout, DM, sacral wound. Patient with poor functional baseline status, he has underlying dementia and is non-ambulatory and has been having progressive decline in recent months. He presents today from the wound clinic at [facility] with metabolic encephalopathy. They report increased confusion as well as bradycardia. They also report a non-productive cough and low saturation (not specified in documentation provided). Patient is unable to provide history and has no additional complaints. When asked how he is doing he replies "I'm great!" but says nothing else. ER Course: Zosyn Allergies Allergy/AdvReac Type Severity Reaction Status Date / Time No Known Allergies Allergy Verified 07/20/18 08:50 Home Medications Home Medications Medication Instructions Recorded Confirmed Type allopurinol 150 mg PO QPM 02/07/18 07/20/18 History amoxicillin 4 cap PO DIRECTED PRN 02/07/18 07/20/18 History aspirin 81 mg PO QPM 02/07/18 07/20/18 History atorvastatin 80 mg PO QPM 02/07/18 07/20/18 History calcitriol 0.5 mcg PO 3XWK 02/07/18 07/20/18 History calcium acetate 667 mg PO QDD 02/07/18 07/20/18 History carvedilol 6.25 mg PO BID17 02/07/18 07/20/18 History levothyroxine 175 mcg PO QAM 02/07/18 07/20/18 History pantoprazole 40 mg PO HS 02/07/18 07/20/18 History multivitamin 1 tab PO QAM 03/14/18 07/20/18 History ondansetron HCl [Zofran] 4 mg PO Q6 PRN 03/14/18 07/20/18 History acetaminophen 500 mg tablet 1,000 mg PO TID tab 04/15/18 07/20/18 History amino acid-protein hydr-whey prot 30 ml PO BID17 ml 04/15/18 07/20/18 History 15 gram-100 kcal/30 mL liquid packet ascorbic acid (vitamin C) 500 mg 500 mg PO QAM 04/15/18 07/20/18 History tablet insulin aspart U- 100 100 unit/mL See Rx Instructions SQ BID ml 04/15/18 07/20/18 History subcutaneous solution oxycodone 5 mg capsule 5 mg PO Q4H PRN cap 04/15/18 07/20/18 History polyethylene glycol 3350 17 17 gm PO DAILY PRN gm 04/15/18 07/20/18 History gram/dose oral powder warfarin 1 mg tablet 1 mg PO 5XWK 04/15/18 07/20/18 History warfarin 1 mg tablet 2 mg PO 2XWK tab 04/15/18 07/20/18 History zinc sulfate 220 mg tablet 220 mg PO QAM tab 04/15/18 07/20/18 History cadexomer iodine [Iodosorb] 1 applic TOPICAL QAM 05/13/18 07/20/18 History travoprost [Travatan Z] 1 drp OPB HS 05/13/18 07/20/18 History vit C-vit S-maeqlc-tlfu-lutein 1 cap PO QAM 05/13/18 07/20/18 History [PreserVision Lutein] bisacodyl [Dulcolax (bisacodyl)] 10 mg [place] DAILY PRN 05/15/18 07/20/18 History food supplement, lactose-reduced See Rx Instructions PO TID ml 06/20/18 07/20/18 History oral liquid ciprofloxacin 500 mg tablet 500 mg PO DAILY tab 06/24/18 07/20/18 History ciprofloxacin 500 mg tablet 500 mg PO DAILY #14 tab 06/24/18 07/20/18 Rx Past Med/Surg History Medical History Fistula Lethargy (Acute) Confusion (Acute) ESRD (end stage renal disease) (Chronic) Hemodialysis T/TR/S Chronic CHF (Chronic) HTN (hypertension) (Chronic) Ischemic cardiomyopathy (Chronic) 'presumed ischemic based on noninvasive cardiac testing' per cardio 01/10/18 Cellulitis of lower leg (Chronic) Pneumonia (Chronic) A-fib (Chronic) PERMANENT, ON COUMADIN Constipation (Chronic) Leukocytosis (Chronic) Anemia (Chronic) Occlusion of left subclavian artery (Chronic) Sepsis (Chronic) Altered mental status (Chronic) Diabetes (Chronic) TYPE II Hypothyroidism (Chronic) Gout Glaucoma S/P ORIF (open reduction internal fixation) fracture r arm GERD (gastroesophageal reflux disease) Carotid artery stenosis PVD (peripheral vascular disease) (Chronic) CAD (coronary artery disease) Pleural effusion Small R sided, noted on 01/12 CT Surgical History Hip fracture requiring operative repair S/P arteriovenous (AV) fistula creation L AC vein R wrist Status post implantation of automatic cardioverter/defibrillator (AICD) Inititially dual-chamber placed 08/22/09, replaced with single-chamber ICD 08/27/15 due to HOLLY AV fistula occlusion REQUIRING L ARM AVF TO R SUBCLAVIAN VEIN BYPASS H/O excision of Zenker's diverticulum Family History Other Family history non-contributory Social History Preferred Language: Slovak Beliefs That Will Affect Care: None Current Living Situation: [facility] Current Living Situation Comment: Patient is from the [employer] Feels Safe at Home: Yes Smoking Status: Never smoker Hx Alcohol Use: No Hx Substance Use: No Review of Systems Unobtainable due to cognitive status Physical Exam Vital Signs (Past 24 Hours): Last Vital Signs Temp 36.1 C L 07/20/18 19:21 Pulse 79 07/20/18 19:21 Resp 32 H 07/20/18 19:21 BP 118/73 07/20/18 19:21 Pulse Ox 93 07/20/18 19:21 Physical Exam: General: patient resting comfortably, NAD, somnolent but arousable, chronically ill and cachectic in appearance. Does not follow commands or answer questions appropriately Skin: warm, dry, multiple wounds HEENT: NC/AT, Pupils small bilaterally, equal round and reactive to light, a nicteric sclera, conjunctiva without injection, external ear normal to inspection and nontender, nares patent, dry mucus membranes, adentulous, no oropharyngeal lesions, neck supple, trachea midline, no LAD, no thyromegaly, no JVD Heart: +S1/S2, regular, no m/r/g, pacemaker palpable, seemingly nontender, tortuous HERO AV graft noted beneath the skin on the anterior chest, seemingly nontender to palpation Lungs: equal air entry bilaterally, no rales/rhonchi/wheezes Abd: +BS, soft, NT/ND, no masses/organomegaly/ascites Ext: contracted, warm, 2+ pulses Neuro: nonfocal, patient unable to follow commands or provide history Results & Data Laboratory Results Lab Results 07/20/18 07/20/18 07/20/18 Range/Units 09:20 09:20 09:20 WBC 10.27 (4.8-10.8) K/uL RBC 3.00 L (4.7-6.1) M/uL Hgb 10.8 L (14.0-18.0) g/dL Hct 32.5 L (42-52) % MCV 108.3 H (80-100) fL MCH 36.0 H (25-34) pg MCHC 33.2 (32-36) g/dL RDW Std Deviation 68.4 H (36.4-46.3) fL RDW Coeff of Reina 17.5 H (11.5-14.5) % Plt Count 193 (130-400) K/uL MPV 11.4 H (7.4-10.4) fL Immature Gran % (Auto) 0.2 % Neut % (Auto) 84.4 % Lymph % (Auto) 10.3 % [place] % (Auto) 4.6 % Eos % (Auto) 0.4 % Baso % (Auto) 0.1 % Immature Gran # (Auto) 0.02 (0.00-0.02) K/uL Neut # (Auto) 8.67 H (1.4-6.5) K/uL Lymph # (Auto) 1.06 L (1.2-3.4) K/uL [place] # (Auto) 0.47 (0.11-0.59) K/uL Eos # (Auto) 0.04 (0-0.5) K/uL Baso # (Auto) 0.01 (0-0.2) K/uL ESR > 90 H (0-14) mm/hr PT 48.8 H (9.0-12.0) Seconds INR 5.4 H (0.9-1.1) APTT 52.9 H* (21.0-31.0) Seconds PTT Ratio 2.0 VBG pH (7.36-7.41) VBG pCO2 (38-50) mmHg VBG pO2 mmHg VBG HCO3 mmol/L VBG O2 Saturation % VBG Base Excess mEq/L Barometric Pressure mm/Hg Sodium (136-145) mmol/L Potassium (3.5-5.1) mmol/L Chloride (98-107) mmol/L Carbon Dioxide (21-32) mmol/L Anion Gap (3-11) BUN (7-18) mg/dl Creatinine (0.6-1.4) mg/dl Est Cr Clr Drug Dosing ml/min Est GFR ( Amer) Est GFR (Non-Af Amer) BUN/Creatinine Ratio (10-20) Glucose (70-99) mg/dl POC Glucose (70-99) Lactate (0.4-2.0) mmol/L Calcium (8.5-10.1) mg/dl Phosphorus (2.5-4.9) mg/dl Magnesium (1.8-2.4) mg/dl Total Bilirubin (0.2-1) mg/dl AST (15-37) U/L ALT (12-78) U/L Alkaline Phosphatase (45-117) U/L Troponin I (0-0.045) ng/ml C-Reactive Protein (0-0.29) mg/dl Total Protein (6.4-8.2) gm/dl Albumin (3.4-5.0) gm/dl Globulin (2.5-4.0) gm/dl Albumin/Globulin Ratio (0.9-2) Procalcitonin (0-0.5) ng/ml Urine Color Urine Appearance (Clear) Urine pH (4.5-7.5) Ur Specific [place] (1.000-1.030) Urine Protein (Negative) Urine Glucose (UA) (Negative) Urine Ketones (Negative) Urine Blood (Negative) Urine Nitrite (Negative) Urine Bilirubin (Negative) Urine Urobilinogen (Negative) Ur Leukocyte Esterase (Negative) Urine WBC (Auto) (0-5) /hpf Urine RBC (Auto) (0-4) /hpf U Hyaline Cast (Auto) (0-5) /lpf U Epithel Cells (Auto) (0-5) /lpf Urine Bacteria (Auto) (Negative) Urine Yeast Nasal Screen MRSA (PCR) (Negative) 07/20/18 07/20/18 07/20/18 Range/Units 09:20 09:20 10:04 WBC (4.8-10.8) K/uL RBC (4.7-6.1) M/uL Hgb (14.0-18.0) g/dL Hct (42-52) % MCV (80-100) fL MCH (25-34) pg MCHC (32-36) g/dL RDW Std Deviation (36.4-46.3) fL RDW Coeff of Reina (11.5-14.5) % Plt Count (130-400) K/uL MPV (7.4-10.4) fL Immature Gran % (Auto) % Neut % (Auto) % Lymph % (Auto) % [place] % (Auto) % Eos % (Auto) % Baso % (Auto) % Immature Gran # (Auto) (0.00-0.02) K/uL Neut # (Auto) (1.4-6.5) K/uL Lymph # (Auto) (1.2-3.4) K/uL [place] # (Auto) (0.11-0.59) K/uL Eos # (Auto) (0-0.5) K/uL Baso # (Auto) (0-0.2) K/uL ESR (0-14) mm/hr PT (9.0-12.0) Seconds INR (0.9-1.1) APTT (21.0-31.0) Seconds PTT Ratio VBG pH (7.36-7.41) VBG pCO2 (38-50) mmHg VBG pO2 mmHg VBG HCO3 mmol/L VBG O2 Saturation % VBG Base Excess mEq/L Barometric Pressure mm/Hg Sodium 139 (136-145) mmol/L Potassium 4.0 (3.5-5.1) mmol/L Chloride 100 (98-107) mmol/L Carbon Dioxide 32 (21-32) mmol/L Anion Gap 8.0 (3-11) BUN 38 H (7-18) mg/dl Creatinine 4.39 H (0.6-1.4) mg/dl Est Cr Clr Drug Dosing 12.4 ml/min Est GFR ( Amer) 13.2 Est GFR (Non-Af Amer) 11.4 BUN/Creatinine Ratio 8.7 L (10-20) Glucose 243 H (70-99) mg/dl POC Glucose (70-99) Lactate 3.1 H* (0.4-2.0) mmol/L Calcium 8.4 L (8.5-10.1) mg/dl Phosphorus (2.5-4.9) mg/dl Magnesium 2.0 (1.8-2.4) mg/dl Total Bilirubin 0.7 (0.2-1) mg/dl AST 29 (15-37) U/L ALT 20 (12-78) U/L Alkaline Phosphatase 204 H (45-117) U/L Troponin I 0.646 H* (0-0.045) ng/ml C-Reactive Protein 15.00 H (0-0.29) mg/dl Total Protein 7.7 (6.4-8.2) gm/dl Albumin 2.0 L (3.4-5.0) gm/dl Globulin 5.7 H (2.5-4.0) gm/dl Albumin/Globulin Ratio 0.4 L (0.9-2) Procalcitonin 1.28 H (0-0.5) ng/ml Urine Color Urine Appearance (Clear) Urine pH (4.5-7.5) Ur Specific [place] (1.000-1.030) Urine Protein (Negative) Urine Glucose (UA) (Negative) Urine Ketones (Negative) Urine Blood (Negative) Urine Nitrite (Negative) Urine Bilirubin (Negative) Urine Urobilinogen (Negative) Ur Leukocyte Esterase (Negative) Urine WBC (Auto) (0-5) /hpf Urine RBC (Auto) (0-4) /hpf U Hyaline Cast (Auto) (0-5) /lpf U Epithel Cells (Auto) (0-5) /lpf Urine Bacteria (Auto) (Negative) Urine Yeast Nasal Screen MRSA (PCR) (Negative) 07/20/18 07/20/18 07/20/18 Range/Units 10:04 12:20 15:48 WBC (4.8-10.8) K/uL RBC (4.7-6.1) M/uL Hgb (14.0-18.0) g/dL Hct (42-52) % MCV (80-100) fL MCH (25-34) pg MCHC (32-36) g/dL RDW Std Deviation (36.4-46.3) fL RDW Coeff of Reina (11.5-14.5) % Plt Count (130-400) K/uL MPV (7.4-10.4) fL Immature Gran % (Auto) % Neut % (Auto) % Lymph % (Auto) % [place] % (Auto) % Eos % (Auto) % Baso % (Auto) % Immature Gran # (Auto) (0.00-0.02) K/uL Neut # (Auto) (1.4-6.5) K/uL Lymph # (Auto) (1.2-3.4) K/uL [place] # (Auto) (0.11-0.59) K/uL Eos # (Auto) (0-0.5) K/uL Baso # (Auto) (0-0.2) K/uL ESR (0-14) mm/hr PT (9.0-12.0) Seconds INR (0.9-1.1) APTT (21.0-31.0) Seconds PTT Ratio VBG pH 7.46 H (7.36-7.41) VBG pCO2 45 (38-50) mmHg VBG pO2 48 mmHg VBG HCO3 31 mmol/L VBG O2 Saturation 83.0 % VBG Base Excess 6.7 mEq/L Barometric Pressure 743.5 mm/Hg Sodium (136-145) mmol/L Potassium (3.5-5.1) mmol/L Chloride (98-107) mmol/L Carbon Dioxide (21-32) mmol/L Anion Gap (3-11) BUN (7-18) mg/dl Creatinine (0.6-1.4) mg/dl Est Cr Clr Drug Dosing ml/min Est GFR ( Amer) Est GFR (Non-Af Amer) BUN/Creatinine Ratio (10-20) Glucose (70-99) mg/dl POC Glucose (70-99) Lactate 3.1 H* (0.4-2.0) mmol/L Calcium (8.5-10.1) mg/dl Phosphorus (2.5-4.9) mg/dl Magnesium (1.8-2.4) mg/dl Total Bilirubin (0.2-1) mg/dl AST (15-37) U/L ALT (12-78) U/L Alkaline Phosphatase (45-117) U/L Troponin I (0-0.045) ng/ml C-Reactive Protein (0-0.29) mg/dl Total Protein (6.4-8.2) gm/dl Albumin (3.4-5.0) gm/dl Globulin (2.5-4.0) gm/dl Albumin/Globulin Ratio (0.9-2) Procalcitonin (0-0.5) ng/ml Urine Color [place] Urine Appearance Cloudy H (Clear) Urine pH 8.0 H (4.5-7.5) Ur Specific [place] 1.016 (1.000-1.030) Urine Protein 2+ H (Negative) Urine Glucose (UA) Trace H (Negative) Urine Ketones Negative (Negative) Urine Blood 2+ H (Negative) Urine Nitrite Positive H (Negative) Urine Bilirubin Negative (Negative) Urine Urobilinogen Negative (Negative) Ur Leukocyte Esterase 1+ H (Negative) Urine WBC (Auto) 1-5 (0-5) /hpf Urine RBC (Auto) >30 H (0-4) /hpf U Hyaline Cast (Auto) 0 (0-5) /lpf U Epithel Cells (Auto) 0-5 (0-5) /lpf Urine Bacteria (Auto) Negative (Negative) Urine Yeast Not Reportable Nasal Screen MRSA (PCR) (Negative) 07/20/18 07/20/18 07/20/18 Range/Units 15:48 16:27 17:03 WBC (4.8-10.8) K/uL RBC (4.7-6.1) M/uL Hgb (14.0-18.0) g/dL Hct (42-52) % MCV (80-100) fL MCH (25-34) pg MCHC (32-36) g/dL RDW Std Deviation (36.4-46.3) fL RDW Coeff of Reina (11.5-14.5) % Plt Count (130-400) K/uL MPV (7.4-10.4) fL Immature Gran % (Auto) % Neut % (Auto) % Lymph % (Auto) % [place] % (Auto) % Eos % (Auto) % Baso % (Auto) % Immature Gran # (Auto) (0.00-0.02) K/uL Neut # (Auto) (1.4-6.5) K/uL Lymph # (Auto) (1.2-3.4) K/uL [place] # (Auto) (0.11-0.59) K/uL Eos # (Auto) (0-0.5) K/uL Baso # (Auto) (0-0.2) K/uL ESR (0-14) mm/hr PT (9.0-12.0) Seconds INR (0.9-1.1) APTT (21.0-31.0) Seconds PTT Ratio VBG pH (7.36-7.41) VBG pCO2 (38-50) mmHg VBG pO2 mmHg VBG HCO3 mmol/L VBG O2 Saturation % VBG Base Excess mEq/L Barometric Pressure mm/Hg Sodium (136-145) mmol/L Potassium (3.5-5.1) mmol/L Chloride (98-107) mmol/L Carbon Dioxide (21-32) mmol/L Anion Gap (3-11) BUN (7-18) mg/dl Creatinine (0.6-1.4) mg/dl Est Cr Clr Drug Dosing ml/min Est GFR ( Amer) Est GFR (Non-Af Amer) BUN/Creatinine Ratio (10-20) Glucose (70-99) mg/dl POC Glucose 176 H (70-99) Lactate (0.4-2.0) mmol/L Calcium (8.5-10.1) mg/dl Phosphorus 4.4 (2.5-4.9) mg/dl Magnesium (1.8-2.4) mg/dl Total Bilirubin (0.2-1) mg/dl AST (15-37) U/L ALT (12-78) U/L Alkaline Phosphatase (45-117) U/L Troponin I 0.805 H* (0-0.045) ng/ml C-Reactive Protein (0-0.29) mg/dl Total Protein (6.4-8.2) gm/dl Albumin (3.4-5.0) gm/dl Globulin (2.5-4.0) gm/dl Albumin/Globulin Ratio (0.9-2) Procalcitonin (0-0.5) ng/ml Urine Color Urine Appearance (Clear) Urine pH (4.5-7.5) Ur Specific [place] (1.000-1.030) Urine Protein (Negative) Urine Glucose (UA) (Negative) Urine Ketones (Negative) Urine Blood (Negative) Urine Nitrite (Negative) Urine Bilirubin (Negative) Urine Urobilinogen (Negative) Ur Leukocyte Esterase (Negative) Urine WBC (Auto) (0-5) /hpf Urine RBC (Auto) (0-4) /hpf U Hyaline Cast (Auto) (0-5) /lpf U Epithel Cells (Auto) (0-5) /lpf Urine Bacteria (Auto) (Negative) Urine Yeast Nasal Screen MRSA (PCR) Negative (Negative) 07/20/18 Range/Units 20:23 WBC (4.8-10.8) K/uL RBC (4.7-6.1) M/uL Hgb (14.0-18.0) g/dL Hct (42-52) % MCV (80-100) fL MCH (25-34) pg MCHC (32-36) g/dL RDW Std Deviation (36.4-46.3) fL RDW Coeff of Reina (11.5-14.5) % Plt Count (130-400) K/uL MPV (7.4-10.4) fL Immature Gran % (Auto) % Neut % (Auto) % Lymph % (Auto) % [place] % (Auto) % Eos % (Auto) % Baso % (Auto) % Immature Gran # (Auto) (0.00-0.02) K/uL Neut # (Auto) (1.4-6.5) K/uL Lymph # (Auto) (1.2-3.4) K/uL [place] # (Auto) (0.11-0.59) K/uL Eos # (Auto) (0-0.5) K/uL Baso # (Auto) (0-0.2) K/uL ESR (0-14) mm/hr PT (9.0-12.0) Seconds INR (0.9-1.1) APTT (21.0-31.0) Seconds PTT Ratio VBG pH (7.36-7.41) VBG pCO2 (38-50) mmHg VBG pO2 mmHg VBG HCO3 mmol/L VBG O2 Saturation % VBG Base Excess mEq/L Barometric Pressure mm/Hg Sodium (136-145) mmol/L Potassium (3.5-5.1) mmol/L Chloride (98-107) mmol/L Carbon Dioxide (21-32) mmol/L Anion Gap (3-11) BUN (7-18) mg/dl Creatinine (0.6-1.4) mg/dl Est Cr Clr Drug Dosing ml/min Est GFR ( Amer) Est GFR (Non-Af Amer) BUN/Creatinine Ratio (10-20) Glucose (70-99) mg/dl POC Glucose 167 H (70-99) Lactate (0.4-2.0) mmol/L Calcium (8.5-10.1) mg/dl Phosphorus (2.5-4.9) mg/dl Magnesium (1.8-2.4) mg/dl Total Bilirubin (0.2-1) mg/dl AST (15-37) U/L ALT (12-78) U/L Alkaline Phosphatase (45-117) U/L Troponin I (0-0.045) ng/ml C-Reactive Protein (0-0.29) mg/dl Total Protein (6.4-8.2) gm/dl Albumin (3.4-5.0) gm/dl Globulin (2.5-4.0) gm/dl Albumin/Globulin Ratio (0.9-2) Procalcitonin (0-0.5) ng/ml Urine Color Urine Appearance (Clear) Urine pH (4.5-7.5) Ur Specific [place] (1.000-1.030) Urine Protein (Negative) Urine Glucose (UA) (Negative) Urine Ketones (Negative) Urine Blood (Negative) Urine Nitrite (Negative) Urine Bilirubin (Negative) Urine Urobilinogen (Negative) Ur Leukocyte Esterase (Negative) Urine WBC (Auto) (0-5) /hpf Urine RBC (Auto) (0-4) /hpf U Hyaline Cast (Auto) (0-5) /lpf U Epithel Cells (Auto) (0-5) /lpf Urine Bacteria (Auto) (Negative) Urine Yeast Nasal Screen MRSA (PCR) (Negative) Diagnostic Findings XR chest 1V portable HISTORY: 83 years-old Male Sepsis acute sepsis COMPARISON: Chest radiograph 05/13/2018 TECHNIQUE: Portable AP view of the chest FINDINGS: Cardiac silhouette is enlarged, unchanged. Stable positioning of the left subclavian pacer/AICD. Right internal jugular central venous catheter appears unchanged. Calcification of the thoracic aorta. Trace left pleural effusion. No pneumothorax. Pulmonary vascular congestion with bilateral interstitial coarsening. Left greater than right bibasilar opacities. Degenerative changes of the shoulders and spine. Remote appearing right proximal humeral fracture. IMPRESSION: 1. Cardiomegaly with mild pulmonary edema. 2. Trace left pleural effusion with left greater than right bibasilar opacities suggestive of atelectasis. Pneumonitis considered less likely. The above report was generated using voice recognition software. It may contain grammatical, syntax or spelling errors. Electronically signed by: Chang Aguayo M.D. 07/20/2018 10:32 AM Dictated: 07/20/18 1029 Transcribed: 07/20/[address] OF THE HEAD WITHOUT CONTRAST CLINICAL HISTORY: Altered mental status. COMPARISON STUDY: Head CT May 13, 2018. CT DOSE: 537.48 mGy.cm TECHNIQUE: Helical axial images of the head were obtained without IV contrast. Automated exposure control was utilized for the study. A dose lowering technique was utilized adhering to the principles of ALARA. FINDINGS: No acute intracranial hemorrhage, midline shift or mass effect is present. 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 This is unchanged. Ventricular system is stable. Basilar cisterns are patent. There are no extra- axial collections. White hypodensities suggest moderate small vessel disease. There is extensive intracranial vascular calcification. There are no findings to suggest acute dural sinus thrombosis or acute territorial infarct. There are no significant calvarial abnormalities. There is mild sinus mucosal thickening. IMPRESSION: No acute intracranial findings. Electronically signed by: Jorge Pardo M.D. 07/20/2018 11:09 AM Dictated: 07/20/18 1107 Transcribed: 07/20/18 110 ECG Additional Comments: AF with ventricular pacing, PVCs Code Status & VTE Plan Code Status DNR per review of [facility] paperwork VTE Prophylaxis Plan VTE Prophylaxis will be ordered: Yes (1) Altered mental status Altered mental status type: unspecified Qualified Code(s): R41.82 - Altered mental status, unspecified (2) UTI (urinary tract infection) Hematuria presence: with hematuria Urinary tract infection type: site unspecified Qualified Code(s): N39.0 - Urinary tract infection, site not specified; R31.9 - Hematuria, unspecified (3) Chronic CHF Heart failure type: combined systolic and diastolic Qualified Code(s): I50.42 - Chronic combined systolic (congestive) and diastolic (congestive) heart failure (4) A-fib Atrial fibrillation type: persistent Qualified Code(s): I48.1 - Persistent atrial fibrillation (5) Diabetes Diabetes mellitus type: type 2 Diabetes mellitus group home insulin use: with group home use Diabetes mellitus complication status: with unspecified complications Qualified Code(s): E11.8 - Type 2 diabetes mellitus with unspecified complications; Z79.4 - [facility] (current) use of insulin
[2018-07-21] MEDS: SODIUM CHLORIDE 0.9% 1000ML 1,000 ML IV SCH ×2 (06:06→21:12)
[2018-07-21] MEDS: LEVOTHYROXINE SODIUM 175 MCG TABLET PO SCH (06:06)
[2018-07-21] MEDS ORDERED: SODIUM CHLORIDE 0.9% 1000ML 1,000 ML IV PRN (07:23)
[2018-07-21 08:15] LABS: Basophils # (auto) 0.01 K/uL (0-0.2); Basophils % (auto) 0.1 %; Eosinophils # (auto) 0.12 K/uL (0-0.5); Eosinophils % (auto) 0.9 %; Hematocrit (blood only) 32.4 % (42-52); Hemoglobin 10.8 g/dL (14.0-18.0); Immature Granulocytes # (auto) 0.04 K/uL (0.00-0.02); Immature Granulocytes % (auto) 0.3 %; Lymphocytes # (auto) 1.34 K/uL (1.2-3.4); Lymphocytes % (auto) 9.8 %; Mean Corpuscular Hgb Conc 33.3 g/dL (32-36); Mean Corpuscular Volume 106.9 fL (80-100); Mean Platelet Volume 11.4 fL (7.4-10.4); Monocytes # (auto) 0.76 K/uL (0.11-0.59); Monocytes % (auto) 5.5 %; Neutrophils # (auto) 11.43 K/uL (1.4-6.5); Neutrophils % (auto) 83.4 %; Platelet Count 188 K/uL (130-400); RDW Coefficient of Variation 17.3 % (11.5-14.5); RDW Standard Deviation 66.9 fL (36.4-46.3); Red Blood Count 3.03 M/uL (4.7-6.1)
[2018-07-21] MEDS: CARVEDILOL 6.25 MG TAB PO SCH ×2 (08:28→21:07)
[2018-07-21 08:34] LABS: Prothrombin Time 59.9 Seconds (9.0-12.0)
[2018-07-21] MEDS: CALCITRIOL 0.25 MCG CAPSULE PO SCH (08:38)
[2018-07-21 08:40] LABS: INR 6.7 (0.9-1.1)
[2018-07-21] MEDS: ACETAMINOPHEN 500 MG TAB PO SCH ×3 (08:40→21:09)
[2018-07-21] MEDS: ASCORBIC ACID 500 MG TAB PO SCH (08:40)
[2018-07-21] MEDS: INSULIN ASPART 100 UNITS/ML 3 ML PEN SC SCH ×4 (08:44→21:09)
[2018-07-21] MEDS ORDERED: ZINC SULFATE 220 MG PO SCH (09:00)
[2018-07-21] MEDS ORDERED: CADEXOMER IODINE TOP SCH (09:00)
[2018-07-21 09:11] LABS: Albumin Globulin Ratio 0.4 (0.9-2); BUN Creatinine Ratio 9.9 (10-20); Bilirubin,Total 0.9 mg/dl (0.2-1); Calcium 8.9 mg/dl (8.5-10.1); Creatinine Clr Calc Pharmacy 11.2 ml/min; Est GFR (African American) 11.9; Est GFR (Non-African American) 10.2; Globulin 5.3 gm/dl (2.5-4.0); Potassium 4.9 mmol/L (3.5-5.1); Total Protein 7.3 gm/dl (6.4-8.2); Troponin I 0.432 ng/ml (0-0.045)
[2018-07-21 09:13] LABS: Phosphorus 4.2 mg/dl (2.5-4.9)
[2018-07-21 09:34] LABS: Estimated Average Glucose 166 mg/dl; Hemoglobin A1C 7.4 % (4.5-5.6)
[2018-07-21 09:38] LABS: Folate (Folic Acid) 15.48 ng/ml (>5.38)
[2018-07-21] MEDS: PIPERACILLIN/TAZOBACTAM 3.375 GM in DEXTROSE 5% 100 ML IV SCH ×3 (10:13→23:29)
[2018-07-21 11:00] LABS: Hepatitis B Surface Antibody Non-Immune
[2018-07-21 11:11] LABS: Hepatitis B Surface Antigen Neg (Neg)
[2018-07-21] MEDS ORDERED: SODIUM CHLORIDE 0.9% 500 ML IV ONE (11:57)
--- NOTE | 2018-07-21 14:00 | Nephrology Progress Note ---
Date of Service July 21, 2018 Assessment & Plan (1) Altered mental status: Etiology unclear. Patient's baseline dementia noted. History of significant delerium also noted in records from prior hospitalization. Staff from the dialysis unit report that the patient's mental status is known to wax and wane. His dementia has been progressive but his baseline is not known to me. Evaluation for infection. (2) ESRD (end stage renal disease): HD orders entered into EMR and discussed with HD nurse. Baseline hypotension noted. Will continue with UF as tolerated, initially 1 L. Unfortunately, AVF did not have adequate thrill or bruit. US will be obtained prior to dialysis. I spoke to nursing staff at the outpatient dialysis unit. They note that the LUE is chronically swollen. Will await findings of US. (3) Ischemic cardiomyopathy: Subjective No acute events overnight. Afebrile this AM. Alphonse was not oriented to place. His memory is very poor. He reports pain in his lower extremity. Mental status seems to have improved since admission but he continues to struggle with simple questions. He denies dyspnea. Review of systems was limited due to mental status. Physical Exam Vital Signs (Past 24 Hours): Last Vital Signs Temp 37.6 C H 07/21/18 11:35 Pulse 82 07/21/18 11:35 Resp 16 07/21/18 11:35 BP 72/40 L 07/21/18 11:54 Pulse Ox 94 07/21/18 11:35 Constitutional: + cachectic and + frail appearing Eyes: + anicteric sclerae ENMT: Mouth: + dry oral mucous membranes, + dentures and + poor dentition Neck: normal visual inspection and trachea midline Respiratory: normal respiratory effort Auscultation: lungs clear to auscultation bilaterally and + rales Cardiovascular: Rate/Rhythm: regular rate Heart Sounds: normal S1, normal S2 and + murmur Extremities: + AV fistula Gastrointestinal (Abdomen): Inspection/Auscultation: abdomen normal to inspection Percussion/Palpation: abdomen soft Musculoskeletal: no cyanosis or clubbing, extremities motor strength 5/5 Skin: no rashes, warm and dry + turgor decreased Neurologic: awake and + confused Results & Data Laboratory Results Laboratory Results - last 24 hr 07/20/18 07/20/18 07/20/18 15:48 15:48 16:27 WBC RBC Hgb Hct MCV MCH MCHC RDW Std Deviation RDW Coeff of Reina Plt Count MPV Immature Gran % (Auto) Neut % (Auto) Lymph % (Auto) Hale % (Auto) Eos % (Auto) Baso % (Auto) Immature Gran # (Auto) Neut # (Auto) Lymph # (Auto) Hale # (Auto) Eos # (Auto) Baso # (Auto) PT INR Sodium Potassium Chloride Carbon Dioxide Anion Gap BUN Creatinine Est Cr Clr Drug Dosing Est GFR ( Amer) Est GFR (Non-Af Amer) BUN/Creatinine Ratio Glucose POC Glucose Estimat Average Glucose Hemoglobin A1c Lactate 3.1 H* Calcium Phosphorus 4.4 Magnesium Total Bilirubin AST ALT Alkaline Phosphatase Ammonia Troponin I 0.805 H* Total Protein Albumin Globulin Albumin/Globulin Ratio Vitamin B12 Folate TSH Nasal Screen MRSA (PCR) Negative Hep Bs Antigen Hep Bs Antibody Hep Bs Antibody, Quant 07/20/18 07/20/18 07/20/18 17:03 20:23 22:28 WBC RBC Hgb Hct MCV MCH MCHC RDW Std Deviation RDW Coeff of Reina Plt Count MPV Immature Gran % (Auto) Neut % (Auto) Lymph % (Auto) Hale % (Auto) Eos % (Auto) Baso % (Auto) Immature Gran # (Auto) Neut # (Auto) Lymph # (Auto) Hale # (Auto) Eos # (Auto) Baso # (Auto) PT INR Sodium Potassium Chloride Carbon Dioxide Anion Gap BUN Creatinine Est Cr Clr Drug Dosing Est GFR ( Amer) Est GFR (Non-Af Amer) BUN/Creatinine Ratio Glucose POC Glucose 176 H 167 H Estimat Average Glucose Hemoglobin A1c Lactate Calcium Phosphorus Magnesium Total Bilirubin AST ALT Alkaline Phosphatase Ammonia Troponin I 0.776 H* Total Protein Albumin Globulin Albumin/Globulin Ratio Vitamin B12 Folate TSH Nasal Screen MRSA (PCR) Hep Bs Antigen Hep Bs Antibody Hep Bs Antibody, Quant 07/21/18 07/21/18 07/21/18 07:48 07:54 07:54 WBC 13.70 H RBC 3.03 L Hgb 10.8 L Hct 32.4 L MCV 106.9 H MCH 35.6 H MCHC 33.3 RDW Std Deviation 66.9 H RDW Coeff of Reina 17.3 H Plt Count 188 MPV 11.4 H Immature Gran % (Auto) 0.3 Neut % (Auto) 83.4 Lymph % (Auto) 9.8 Hale % (Auto) 5.5 Eos % (Auto) 0.9 Baso % (Auto) 0.1 Immature Gran # (Auto) 0.04 H Neut # (Auto) 11.43 H Lymph # (Auto) 1.34 Hale # (Auto) 0.76 H Eos # (Auto) 0.12 Baso # (Auto) 0.01 PT INR Sodium 139 Potassium 4.9 D Chloride 103 Carbon Dioxide 27 Anion Gap 10.0 BUN 47 H Creatinine 4.81 H* D Est Cr Clr Drug Dosing 11.2 Est GFR ( Amer) 11.9 Est GFR (Non-Af Amer) 10.2 BUN/Creatinine Ratio 9.9 L Glucose 115 H POC Glucose 106 H Estimat Average Glucose Hemoglobin A1c Lactate Calcium 8.9 Phosphorus Magnesium Total Bilirubin 0.9 AST 23 ALT 16 Alkaline Phosphatase 166 H Ammonia Troponin I 0.432 H* Total Protein 7.3 Albumin 2.0 L Globulin 5.3 H Albumin/Globulin Ratio 0.4 L Vitamin B12 Folate TSH 7.900 H Nasal Screen MRSA (PCR) Hep Bs Antigen Hep Bs Antibody Hep Bs Antibody, Quant 07/21/18 07/21/18 07/21/18 07:54 07:54 07:54 WBC RBC Hgb Hct MCV MCH MCHC RDW Std Deviation RDW Coeff of Reina Plt Count MPV Immature Gran % (Auto) Neut % (Auto) Lymph % (Auto) Hale % (Auto) Eos % (Auto) Baso % (Auto) Immature Gran # (Auto) Neut # (Auto) Lymph # (Auto) Hale # (Auto) Eos # (Auto) Baso # (Auto) PT 59.9 H INR 6.7 H* Sodium Potassium Chloride Carbon Dioxide Anion Gap BUN Creatinine Est Cr Clr Drug Dosing Est GFR ( Amer) Est GFR (Non-Af Amer) BUN/Creatinine Ratio Glucose POC Glucose Estimat Average Glucose 166 Hemoglobin A1c 7.4 H Lactate 2.8 H* Calcium Phosphorus Magnesium Total Bilirubin AST ALT Alkaline Phosphatase Ammonia Troponin I Total Protein Albumin Globulin Albumin/Globulin Ratio Vitamin B12 Folate TSH Nasal Screen MRSA (PCR) Hep Bs Antigen Hep Bs Antibody Hep Bs Antibody, Quant 07/21/18 07/21/18 07/21/18 07:54 08:16 08:30 WBC RBC Hgb Hct MCV MCH MCHC RDW Std Deviation RDW Coeff of Reina Plt Count MPV Immature Gran % (Auto) Neut % (Auto) Lymph % (Auto) Hale % (Auto) Eos % (Auto) Baso % (Auto) Immature Gran # (Auto) Neut # (Auto) Lymph # (Auto) Hale # (Auto) Eos # (Auto) Baso # (Auto) PT INR Sodium Cancelled Potassium Cancelled Chloride Cancelled Carbon Dioxide Cancelled Anion Gap Cancelled BUN Cancelled Creatinine Cancelled Est Cr Clr Drug Dosing Cancelled Est GFR ( Amer) Cancelled Est GFR (Non-Af Amer) Cancelled BUN/Creatinine Ratio Cancelled Glucose Cancelled POC Glucose Estimat Average Glucose Hemoglobin A1c Lactate Calcium Cancelled Phosphorus 4.2 Magnesium 2.0 Total Bilirubin Cancelled AST Cancelled ALT Cancelled Alkaline Phosphatase Cancelled Ammonia Troponin I Total Protein Cancelled Albumin Cancelled Globulin Cancelled Albumin/Globulin Ratio Cancelled Vitamin B12 961 H Folate 15.48 TSH Nasal Screen MRSA (PCR) Hep Bs Antigen Neg Hep Bs Antibody Non-Immune Hep Bs Antibody, Quant < 3.10 L 07/21/18 07/21/18 07/21/18 08:30 08:30 08:30 WBC RBC Hgb Hct MCV MCH MCHC RDW Std Deviation RDW Coeff of Reina Plt Count MPV Immature Gran % (Auto) Neut % (Auto) Lymph % (Auto) Hale % (Auto) Eos % (Auto) Baso % (Auto) Immature Gran # (Auto) Neut # (Auto) Lymph # (Auto) Hale # (Auto) Eos # (Auto) Baso # (Auto) PT INR Sodium Potassium Chloride Carbon Dioxide Anion Gap BUN Creatinine Est Cr Clr Drug Dosing Est GFR ( Amer) Est GFR (Non-Af Amer) BUN/Creatinine Ratio Glucose POC Glucose Estimat Average Glucose Hemoglobin A1c Lactate 3.4 H* Calcium Phosphorus Magnesium Total Bilirubin AST ALT Alkaline Phosphatase Ammonia 20.8 Troponin I Total Protein Albumin Globulin Albumin/Globulin Ratio Vitamin B12 Folate Cancelled TSH Nasal Screen MRSA (PCR) Hep Bs Antigen Hep Bs Antibody Hep Bs Antibody, Quant 07/21/18 12:03 WBC RBC Hgb Hct MCV MCH MCHC RDW Std Deviation RDW Coeff of Reina Plt Count MPV Immature Gran % (Auto) Neut % (Auto) Lymph % (Auto) Hale % (Auto) Eos % (Auto) Baso % (Auto) Immature Gran # (Auto) Neut # (Auto) Lymph # (Auto) Hale # (Auto) Eos # (Auto) Baso # (Auto) PT INR Sodium Potassium Chloride Carbon Dioxide Anion Gap BUN Creatinine Est Cr Clr Drug Dosing Est GFR ( Amer) Est GFR (Non-Af Amer) BUN/Creatinine Ratio Glucose POC Glucose 151 H Estimat Average Glucose Hemoglobin A1c Lactate Calcium Phosphorus Magnesium Total Bilirubin AST ALT Alkaline Phosphatase Ammonia Troponin I Total Protein Albumin Globulin Albumin/Globulin Ratio Vitamin B12 Folate TSH Nasal Screen MRSA (PCR) Hep Bs Antigen Hep Bs Antibody Hep Bs Antibody, Quant (1) Altered mental status Altered mental status type: unspecified Qualified Code(s): R41.82 - Altered mental status, unspecified
--- NOTE | 2018-07-21 14:46 | Ultrasound Report ---
US hemodialysis access (left upper arm AV fistula evaluation) CLINICAL HISTORY: Clinically abnormal AV fistula COMPARISON STUDY: No previous studies for comparison. FINDINGS: Grayscale color flow and spectral waveform analysis was performed. There is a patent right subclavian vein to left cephalic vein bypass graft. There is thrombus within the right internal jugular vein. There is a left mid upper arm brachiocephalic AV fistula. There is a stenosis at the anastomotic site with elevated velocities measuring 516 cm/s IMPRESSION: 1. Stenosis at the anastomotic site of the patient's left mid upper arm brachiocephalic AV fistula 2. Patent right subclavian to left cephalic vein bypass graft 3. Right internal jugular vein thrombus Electronically signed by: Chris Guthrie M.D. 07/21/2018 2:44 PM
--- NOTE | 2018-07-21 15:14 | Medical Student Progress Note ---
Date of Service July 21, 2018 Assessment & Plan (1) Metabolic encephalopathy: 83yo M with hx of ESRD on HD q T/R/S, Atrial fibrillation (on warfarin), CAD with ischemic cardiomyopathy, EF of 20-25%, s/p BiV pacer, gout, DM, sacral wound admitted for metabolic encephalopathy secondary to infection (bacteremia, UTI, and possible sacral ulcer infxn). Pt resides at [facility]. Brought to ED after being seen at wound care clinic, where they reported AMS, fever, and cough. metabolic encephalopathy secondary to infection (bacteremia, UTI, and possible sacral ulcer infxn) supported by AMS, hypotension, tachycardic, WBC 13.7, lactate 3.1. Pt's blood cx 2/2 were possible for gram neg bacilli, u/a positive for nitrates and leukocyte esterase, urine cx- no growth to date. pt started on zosyn 3.375 q12hr; pt mental status already improving (baseline is already affected by dementia) pt unable to proceed with HD. subsequent u/s of hemodialysis access site showed "Stenosis at the anastomotic site of the patient's left mid upper arm brachiocephalic AV fistula." Cr 4.81 today. warfarin and ASA held due to supratherapeutic INR of 6.7; no vitamin K at this point b/c do not want to risk overcorrecting. Supervising Attestation Patient seen and examined, discussed with medical student about patient condition and care plan, agree current care plan, Subjective: Generalized weakness, awake alert orientated, currently has no fever Occasional cough no sputum, no wheezing no difficulty breathing, denies chest pain Objective: bp at 80's which is not new for him, chronic ill, and frail appearing + dry oral mucous membranes, poor dentition lungs clear to auscultation bilaterally and + rales Rate/Rhythm: regular rate Heart Sounds: normal S1, normal S2 and + murmur abdomen soft, BS + Extremities: + AV fistula Musculoskeletal: no cyanosis or clubbing, extremities motor strength 5/5 Skin: Sacral wounds and decubitus present upon admission Neurologic: Awake alert orientated conversational, Assessment and plan: 83yo M from [facility], with hx of ESRD on HD q T/R/S, Atrial fibrillation (on warfarin), CAD with ischemic cardiomyopathy, EF of 20-25%, s/p BiV pacer, gout, DM, sacral wound admitted for metabolic encephalopathy secondary to infection (bacteremia, UTI, and possible sacral ulcer infxn). Metabolic encephalopathy secondary to sepsis Sepsis upon admission likely from UTI, sacral ulcer infection, blood cx 2/2 were possible for gram neg bacilli, Continue on Zosyn 3.375 q12hr Possible fistula clogged, vascular surgeon evaluation, may need temporary dialysis catheter tomorrow replace for emergent dialysis Coumadin coagulopathy with elevated INR , Patient currently has no sign of bleeding, we will not give vitamin K for now , we will watch closely Hyperkalemia from end-stage renal disease, patient got Kayexalate 1 dose Subjective 83yo M with hx of ESRD on HD q T/R/S, Atrial fibrillation (on warfarin), CAD with ischemic cardiomyopathy, EF of 20-25%, s/p BiV pacer, gout, DM, sacral wound admitted for metabolic encephalopathy secondary to infection (bacteremia, UTI, and possible sacral ulcer infxn). Pt resides at [facility]. Brought to ED after being seen at wound care clinic, where they reported AMS, fever, and cough. Pt could provide minimal information due to cognitive status he does not report any pain though aware that he is in the hospital, but not the events that brought him here Physical Exam Vital Signs (Past 24 Hours): Last Vital Signs Temp 37.6 C H 07/21/18 11:35 Pulse 82 07/21/18 11:35 Resp 16 07/21/18 11:35 BP 90/52 L 07/21/18 14:16 Pulse Ox 94 07/21/18 11:35 Physical Exam: GENERAL: somnolent, oriented to self, appropriately responds to some questions, cachetic HEENT: Head: Atraumatic, normocephalic. Nose: No nasal congestion. Throat: No tonsillar erythema, exudates, or enlargement. Mouth: dry MM, poor dentition, no lesions. Neck: Supple, no cervical LAD. Chest/Lung: Hero graft to right internal jugular decreased breath sounds b/l no wheezing or ronchi Heart: S1, S2, murmur Abdomen: Soft, nontender, nondistended, BS present, Extremities: edematous and erythematous left arm LUE dialysis fistula dark purple LE b/l, gangrenous in appearance Results & Data Diagnostic Findings [facility] [place] [phone] Ultrasound Report Patient: NANNETTE STOUT Date: 07/20/18 MR#: [id number]: [address] Acct ID:[id number]: C/O PJ STOUT Date: 1935[facility] Zip: [place] [id number] Age: 83Location: 2N Sex: M Room/Bed: [facility] Att Phy: Quentin Aguilar MD, PhDDiagnosis: AMS Kimber Phy: Vivek Ramirez MDService Date: 07/21/18 Fam Phy: Interpreting Phy: Chris Guthrie MD Admit Phy: Iris Nelson D.O. Ordering Phy: Baldev Ty DO cc: ~ hemodialysis access (left upper arm AV fistula evaluation) CLINICAL HISTORY: Clinically abnormal AV fistula COMPARISON STUDY: No previous studies for comparison. FINDINGS: Grayscale color flow and spectral waveform analysis was performed. There is a patent right subclavian vein to left cephalic vein bypass graft. There is thrombus within the right internal jugular vein. There is a left mid upper arm brachiocephalic AV fistula. There is a stenosis at the anastomotic site with elevated velocities measuring 516 cm/s IMPRESSION: 1. Stenosis at the anastomotic site of the patient's left mid upper arm brachiocephalic AV fistula 2. Patent right subclavian to left cephalic vein bypass graft 3. Right internal jugular vein thrombus Electronically signed by: Chris Guthrie M.D. 07/21/2018 2:44 PM Dictated: 07/21/18 1437 Transcribed: 07/21/18 1437
[2018-07-21 15:57] LABS: BUN Creatinine Ratio 9.7 (10-20); Calcium 8.8 mg/dl (8.5-10.1); Creatinine Clr Calc Pharmacy 10.5 ml/min; Est GFR (Non-African American) 9.5; Phosphorus 4.7 mg/dl (2.5-4.9); Potassium 5.2 mmol/L (3.5-5.1)
[2018-07-21] MEDS ORDERED: SODIUM POLYSTYRENE SULFONATE 15G/60ML SUSP PO STA (17:57)
[2018-07-21] MEDS: CALCIUM ACETATE 667 MG CAP PO SCH (18:11)
[2018-07-21] MEDS: ALLOPURINOL 300 MG TAB PO SCH (21:08)
[2018-07-21] MEDS: PANTOprazole 40 MG TAB PO SCH (21:08)
[2018-07-21] MEDS: ATORVASTATIN 40 MG TAB PO SCH (21:08)
[2018-07-21] MEDS: TRAVOPROST Z 0.004% OPH SOLN 2.5 ML BTL OPB SCH (21:09)
[2018-07-22 08:07] LABS: Prothrombin Time 63.4 Seconds (9.0-12.0)
[2018-07-22 08:10] LABS: INR 7.1 (0.9-1.1)
[2018-07-22] MEDS: CARVEDILOL 6.25 MG TAB PO SCH ×2 (08:16→21:13)
[2018-07-22] MEDS: ACETAMINOPHEN 500 MG TAB PO SCH ×3 (08:16→21:14)
[2018-07-22] MEDS: ASCORBIC ACID 500 MG TAB PO SCH (08:16)
[2018-07-22] MEDS: INSULIN ASPART 100 UNITS/ML 3 ML PEN SC SCH ×4 (08:19→21:32)
[2018-07-22] MEDS: LEVOTHYROXINE SODIUM 175 MCG TABLET PO SCH (08:21)
[2018-07-22 08:57] LABS: BUN Creatinine Ratio 9.8 (10-20); Calcium 8.7 mg/dl (8.5-10.1); Est GFR (African American) 9.2; Magnesium 2.1 mg/dl (1.8-2.4); Phosphorus 5.4 mg/dl (2.5-4.9); Potassium 4.8 mmol/L (3.5-5.1)
[2018-07-22] MEDS ORDERED: PHYTONADIONE 5 MG in SODIUM CHLORIDE 0.9% 50 ML IV ONE (10:00)
--- NOTE | 2018-07-22 11:47 | Medical Student Progress Note ---
Date of Service July 22, 2018 Assessment & Plan (1) Metabolic encephalopathy: 83yo M with hx of ESRD on HD q T/R/S, Atrial fibrillation (on warfarin), CAD with ischemic cardiomyopathy, EF of 20-25%, s/p BiV pacer, gout, DM, sacral wound admitted for metabolic encephalopathy secondary to infection (UTI, possible sacral ulcer infxn, or LE wound infxn). Pt resides at [facility]. Brought to ED after being seen at wound care clinic, where they reported AMS, fever, and cough. 07/21/18 metabolic encephalopathy secondary to infection (UTI, possible sacral ulcer infxn, or LE wound) supported by AMS, hypotension, tachycardic, WBC 13.7, lactate 3.1. Pt's blood cx 2/2 were possible for gram neg bacilli, u/a positive for nitrates and leukocyte esterase, urine cx- no growth to date. pt started on zosyn 3.375 q12hr; pt mental status already improving (baseline is already affected by dementia) pt unable to proceed with HD. subsequent u/s of hemodialysis access site showed "Stenosis at the anastomotic site of the patient's left mid upper arm brachiocephalic AV fistula." But AV fistula was patent. Cr 4.81 today. warfarin and ASA held due to supratherapeutic INR of 6.7; no vitamin K at this point b/c do not want to risk overcorrecting. 07/22/18 metabolic encephalopathy has improved as pt is alert, oriented to self, and conversant; responding appropriately to most questions. pt remains afebrile, normotensive, WBC not obtained today blood cultures grew e. coli; can scale back zosyn to ceftriaxone potentially based on sensitivities. pt letty be elevated by vascular surgery regarding HD access; LUE is edematous at baseline? INR continues to trend up; now at 7.1; vit k was administered will continue to monitor electrolytes as pt did miss one HD treatment this week; phos high at 5.4, but others remain within normal limits Supervising Attestation 83yo M with hx of ESRD on HD q T/R/S, Atrial fibrillation (on warfarin), CAD with ischemic cardiomyopathy, EF of 20-25%, s/p BiV pacer, gout, DM, sacral wound admitted for metabolic encephalopathy secondary to infection (UTI, possible sacral ulcer infxn, or LE wound infxn). Pt resides at [facility]. Brought to ED after being seen at wound care clinic, where they reported AMS, fever, and cough. Metabolic encephalopathy: improved E. coli bacteremia, to be on Zosyn this admission, will change to ceftriaxone sensitivity Sacral wounds decubitus stage II-III, continue wound care End-stage renal disease on dialysis Possible fistula malfunction however ultrasound possible shows possible fistulous opening, positive Dr. Ramirez, he feel if needed patient will be okay to be on dialysis Patient currently can because and creatinine level is fair, to not need to have dialysis now If needed we can have vascular surgery regarding HD access; LUE is edematous likely is at baseline A. fib on Coumadin, Coumadin coagulopathy, INR continues to trend up; Today is at 7.1; vit k was administered End-stage renal disease will continue to monitor electrolytes Goal of the care, palliative care input appreciated, patient's primary nephrology and PCP will talk to patient's family about the next step, possible recommend not aggressive procedure in the future Subjective 83yo M with hx of ESRD on HD q T/R/S, Atrial fibrillation (on warfarin), CAD with ischemic cardiomyopathy, EF of 20-25%, s/p BiV pacer, gout, DM, sacral wound admitted for metabolic encephalopathy secondary to infection (UTI, sacral ulcer infxn, LE wound infxn). Pt resides at [facility]. Brought to ED after being seen at wound care clinic, where they reported AMS, fever, and cough. pt reports no f/c/n pt reports that he is not in any pain reports non-productive cough; aware that he is in the hospital, but not the events that brought him here Physical Exam Vital Signs (Past 24 Hours): Last Vital Signs Temp 36.5 C 07/22/18 08:12 Pulse 84 07/22/18 08:12 Resp 18 07/22/18 08:12 BP 120/60 07/22/18 08:12 Pulse Ox 92 07/22/18 08:12 Physical Exam: GENERAL: alert, oriented to self, appropriately responds to some questions, cachetic HEENT: Head: Atraumatic, normocephalic. Nose: No nasal congestion. Throat: No tonsillar erythema, exudates, or enlargement. Mouth: dry MM, poor dentition, no lesions. Neck: Supple, no cervical LAD. Chest/Lung: Hero graft to right internal jugular decreased breath sounds b/l no wheezing or ronchi Heart: S1, S2, irregular rhythm, murmur Abdomen: Soft, nontender, nondistended, BS present, Extremities: edematous and erythematous left arm LUE dialysis fistula dark purple LE b/l, gangrenous in appearance
--- NOTE | 2018-07-22 12:28 | Palliative Care Consultation ---
Date of Consultation July 22, 2018 Assessment & Plan (1) Goals of care, counseling/discussion: -83 year old male with PMH ESRD on HD T/R/S, Atrial fibrillation (on warfarin), CAD with ischemic cardiomyopathy, EF of 20-25%, s/p BiV pacer, gout, DM, sacral wound, multiple foot ulcers/wounds, presented from wound clinic with AMS, fever, and cough. Admitted for metabolic encephalopathy secondary to infection. Urine culture negative, but blood cultures growing E. coli. On IV Zosyn, metabolic encephlopathy much improved today. Patient unable to have HD treatment yesterday due to issues with his AV fistula. Vascular surgery is consulted. Patient was at [facility] for rehab, but was residing at [facility] prior to that. He is dependent in all his care, gets OOB only with [facility]. Palliative care consulted to discuss goals of care. -Met with patient in room 281. He is awake and oriented to person and place. He remains confused, but apparently is much improved from yesterday per documentation. Also noted in documentation that mental status waxes and wanes at baseline. -Patient was slightly irritated during my visit, he told me to call his daughter Brigitte. -Spoke with Brigitte on the phone. She states that patient's normal doctor is Dr. Ramirez, and he would be seeing patient today. She does not understand how patietn's fistula was working fine on Wednesday, now is suddenly not working. She is encouraged to hear that patient's mental status is improving. -Goal is to get his acute issues taken care of and get him back to [facility]. He will likely need to stay there, may not be able to go back to [facility]. For now, ellie current care. -Will will follow. (2) Metabolic encephalopathy: -Improving. -2/2 infection. (3) ESRD (end stage renal disease) on dialysis: -HD T/R/Sa. -Issues with AV fistula. Vascular surgery consulted. (4) Bacteremia: -E. coli. -IV Zosyn. (5) Sacral decubitus ulcer: -Follows with wound clinic as outpatient. -WOCN consulted here. Supervising Physician Co-Signing Physician Notes Chart reviewed, patient seen and examined. Collaborated with ALEX Read Return to patient's room with ALEX Read for a joint exam. Patient was minimally responsive, has a weak but productive cough. PE: Patient appears comfortable, no facial grimace or signs of pain. Patient cachectic HEENT: EOMI, hearing within normal limits, dry mucous membranes Respiratory: Coarse breath sounds bilaterally, loose cough, unlabored respirations CV: Irregular, chronic edema left upper extremity-fistula in left upper extremity-without thrill Abdomen: Soft, no grimace with light palpation Extremities: Multiple stage III to stage IV ulcers Skin: Reviewed photo documentation of stage IV sacral ulcer Neuro: Decreased LOC Agree with above note, assessment and plan as per ALEX Read. Patient's CODE STATUS is DNR-current plan is for evaluation by vascular surgery. ALEX Read spoke with patient's daughter-she did not want to dis cuss comfort care at this time until she speaks with Dr. Ramirez Will continue to follow and provide assistance with medical decision making. History of Present Illness Attending Physician: Quentin Aguilar MD, PhD, [facility], [facility] History of Present Illness This 83 year old male with PMH ESRD on HD T/R/S, Atrial fibrillation (on warfarin), CAD with ischemic cardiomyopathy, EF of 20-25%, s/p BiV pacer, gout, DM, sacral wound, multiple foot ulcers/wounds, presented from wound clinic with AMS, fever, and cough. Admitted for metabolic encephalopathy secondary to infection. Urine culture negative, but blood cultures growing E. coli. On IV Zosyn, metabolic encephlopathy much improved today. Patient unable to have HD treatment yesterday due to issues with his AV fistula. Vascular surgery is consulted. Patient was at [facility] for rehab, but was residing at [facility] prior to that. He is dependent in all his care, gets OOB only with [facility]. Palliative care consulted to discuss goals of care. Thank you kindly for this consult. I will follow. Allergies Allergy/AdvReac Type Severity Reaction Status Date / Time No Known Allergies Allergy Verified 07/20/18 08:50 Home Medications Home Medications Medication Instructions Recorded Confirmed Type allopurinol 150 mg PO QPM 02/07/18 07/20/18 History amoxicillin 4 cap PO DIRECTED PRN 02/07/18 07/20/18 History aspirin 81 mg PO QPM 02/07/18 07/20/18 History atorvastatin 80 mg PO QPM 02/07/18 07/20/18 History calcitriol 0.5 mcg PO 3XWK 02/07/18 07/20/18 History calcium acetate 667 mg PO QDD 02/07/18 07/20/18 History carvedilol 6.25 mg PO BID17 02/07/18 07/20/18 History levothyroxine 175 mcg PO QAM 02/07/18 07/20/18 History pantoprazole 40 mg PO HS 02/07/18 07/20/18 History multivitamin 1 tab PO QAM 03/14/18 07/20/18 History ondansetron HCl [Zofran] 4 mg PO Q6 PRN 03/14/18 07/20/18 History acetaminophen 500 mg tablet 1,000 mg PO TID tab 04/15/18 07/20/18 History amino acid-protein hydr-whey prot 30 ml PO BID17 ml 04/15/18 07/20/18 History 15 gram-100 kcal/30 mL liquid packet ascorbic acid (vitamin C) 500 mg 500 mg PO QAM 04/15/18 07/20/18 History tablet insulin aspart U- 100 100 unit/mL See Rx Instructions SQ BID ml 04/15/18 07/20/18 History subcutaneous solution oxycodone 5 mg capsule 5 mg PO Q4H PRN cap 04/15/18 07/20/18 History polyethylene glycol 3350 17 17 gm PO DAILY PRN gm 04/15/18 07/20/18 History gram/dose oral powder warfarin 1 mg tablet 1 mg PO 5XWK 04/15/18 07/20/18 History warfarin 1 mg tablet 2 mg PO 2XWK tab 04/15/18 07/20/18 History zinc sulfate 220 mg tablet 220 mg PO QAM tab 04/15/18 07/20/18 History cadexomer iodine [Iodosorb] 1 applic TOPICAL QAM 05/13/18 07/20/18 History travoprost [Travatan Z] 1 drp OPB HS 05/13/18 07/20/18 History vit C-vit H-wdxtuc-sdra-lutein 1 cap PO QAM 05/13/18 07/20/18 History [PreserVision Lutein] bisacodyl [Dulcolax (bisacodyl)] 10 mg SC DAILY PRN 05/15/18 07/20/18 History food supplement, lactose-reduced See Rx Instructions PO TID ml 06/20/18 07/20/18 History oral liquid ciprofloxacin 500 mg tablet 500 mg PO DAILY tab 06/24/18 07/20/18 History ciprofloxacin 500 mg tablet 500 mg PO DAILY #14 tab 06/24/18 07/20/18 Rx Patient History Medical History Fistula Lethargy (Acute) Confusion (Acute) ESRD (end stage renal disease) (Chronic) Hemodialysis T/TR/S Chronic CHF (Chronic) HTN (hypertension) (Chronic) Ischemic cardiomyopathy (Chronic) 'presumed ischemic based on noninvasive cardiac testing' per cardio 01/10/18 Cellulitis of lower leg (Chronic) Pneumonia (Chronic) A-fib (Chronic) PERMANENT, ON COUMADIN Constipation (Chronic) Leukocytosis (Chronic) Anemia (Chronic) Occlusion of left subclavian artery (Chronic) Sepsis (Chronic) Altered mental status (Chronic) Diabetes (Chronic) TYPE II Hypothyroidism (Chronic) Gout Glaucoma S/P ORIF (open reduction internal fixation) fracture r arm GERD (gastroesophageal reflux disease) Carotid artery stenosis PVD (peripheral vascular disease) (Chronic) CAD (coronary artery disease) Pleural effusion Small R sided, noted on 01/12 CT Surgical History Hip fracture requiring operative repair S/P arteriovenous (AV) fistula creation L AC vein R wrist Status post implantation of automatic cardioverter/defibrillator (AICD) Inititially dual-chamber placed 08/22/09, replaced with single-chamber ICD 08/27/15 due to HOLLY AV fistula occlusion REQUIRING L ARM AVF TO R SUBCLAVIAN VEIN BYPASS H/O excision of Zenker's diverticulum Family History Other Family history non-contributory Social History Communication Ability: Effective Beliefs That Will Affect Care: None marital status: / Current Living Situation: [facility] Current Living Situation Comment: Patient is from the [facility] Feels Safe at Home: Yes Smoking Status: Never smoker Hx Alcohol Use: No Hx Substance Use: No Review of Systems Constitutional: + weakness Respiratory: no cough and no dyspnea Cardiovascular: + edema; no chest pain Gastrointestinal: no abdominal pain and no nausea Musculoskeletal: no back pain Psychiatric: no anxiety Physical Exam Vital Signs (Past 24 Hours): Last Vital Signs Temp 36.5 C 07/22/18 08:12 Pulse 84 07/22/18 08:12 Resp 18 07/22/18 08:12 BP 120/60 07/22/18 08:12 Pulse Ox 92 07/22/18 08:12 Constitutional: + ill appearing (chronically) and + cachectic ENMT: Ears: no hearing impairment Neck: cachectic neck with visible tubing under skin Respiratory: normal respiratory effort, lungs clear to auscultation Auscultation: + diminished lung sounds moist cough noted Cardiovascular: Rate/Rhythm: regular rate and regular rhythm Extremities: + edema (LUE +4) Gastrointestinal (Abdomen): Inspection/Auscultation: abdomen normal to inspection and normal bowel sounds; abdomen not distended Percussion/Palpation: abdomen soft Skin: see photos of skin/wounds/ulcers Neurologic: awake and + confused Psychiatric: Orientation: alert, oriented to person and oriented to place; + not oriented to time Affect: + irritable affect Time Spent Midlevel 50 minutes with >50% of time spent at bedside with patient and on phone with daughter discussing condition and GOC. Attending I personally spent 20 minutes in addition to the 50 minutes by ALEX Read for a total of 70 minutes with greater than 50% of time spent at bedside assessing patient and coordinating care
[2018-07-22] MEDS: PIPERACILLIN/TAZOBACTAM 3.375 GM in DEXTROSE 5% 100 ML IV SCH (12:40)
--- NOTE | 2018-07-22 12:43 | Progress Note ---
DATE: 07/22/2018 RENAL PROGRESS NOTE SUBJECTIVE: Mr. Morrow has no immediate complaints. However, he does have an element of chronic dementia and was admitted with an acute deterioration of his mental status, which retrospectively appears to be the result of an episode of sepsis. Blood cultures x2 were positive for an E. coli. Similar bacteria were grown from his left leg wound about 1 month ago. Nonetheless, he is now afebrile and his blood pressure significantly improved with the institution of volume resuscitation and appropriate antibiotic therapy. Mr. Morrow as previously noted by other examiners has a very long and complex medical history. His baseline issues include a longstanding history of non-insulin dependent diabetes mellitus, hypertension and chronic renal failure as well as atrial fibrillation. He has known coronary artery disease and diffuse atherosclerotic cardiovascular disease, particularly involving his lower extremities. He has been on maintenance dialysis for about 2 years now. His vascular access is a HeRO catheter in the left arm with the catheter going across his chest into the right IJ. Imaging studies done since his arrival here have shown that catheter appears to be patent. He has not had inpatient hemodialysis here since his arrival, but technically has missed only one treatment. Additionally, he has a fracture of his distal right tibia. That has been very slow to heal as would be expected in someone with his poor vascular supply as well as his end-stage renal disease. It still causes him quite a bit of pain particularly with any movement. Currently, he has no complaints. OBJECTIVE: GENERAL: On physical exam, Mr. Morrow appears as an obviously chronically ill gentleman who seemed relatively comfortable. He was aware of that he was in the hospital, he was unaware of the time. He did seem to recognize me. He answered questions with 1 or 2 word answers. VITAL SIGNS: Showed a blood pressure of 120/60, his pulse is 84 with intermittent periods of irregularity. Respirations are likewise irregular and consistent with Jewel-Smith respirations. He is afebrile this morning. SKIN: His skin shows normal skin turgor on his chest wall and upper extremities. He has a palpable pacemaker beneath the distal left clavicle. A HeRO catheter is present in the left arm in the antecubital fossa. The catheter portion of the HeRO catheter extends across his anterior chest into the right IJ. His left arm is somewhat swollen and wrinkled and the skin seems course. He has no obvious ischemic changes of his hands. His distal lower extremities are discolored with a deep bronze discoloration. He has very scaly skin. His feet and toes are somewhat ghost like, but he does not have any chinyere gangrenous changes. He has no palpable lymphadenopathy or evidence of lymphangitis. HEAD: Grossly normal. EYES: Normal grossly, but the ocular fundi were not examined. EARS, NOSE, MOUTH AND THROAT: Unremarkable other than very poor dentition with multiple missing teeth and eroded teeth. His oral mucous membranes are dry. NECK: Supple. The HeRO catheter is apparent. He has no jugular venous distention. I cannot hear any carotid bruits. CHEST: Showed some scattered rhonchi, but no definite rales. CARDIAC: Shows the irregular rhythm. S1 and S2 are normal. He has a systolic murmur at the left sternal border and apex radiating to both the base and the anterior axillary line. ABDOMEN: Nontender. There is no obvious organomegaly or mass. EXTREMITIES: Show the skin changes noted above. He is not edematous. There are no pulses beneath the femoral. Femoral pulses are weak and he has bilateral femoral bruits. NEUROLOGIC: Showed him oriented to person and place, but not time. As noted, he answered questions with 1 or 2 word answers, but the answers did seem appropriate. He has no obvious lateralizing neurologic changes. PERTINENT LABORATORY WORK: From today shows a white count of 13,700 with 83.4% neutrophils, 9.8% lymphocytes, 5.5% monocytes, 0.9% eosinophils and 0.1% basophils. His hemoglobin is 10.8, his hematocrit 32.4. Red cell indices are macrocytic. His platelet count 188,000. His clinical chemistries from today show a sodium of 141 mmol/L, potassium 4.8 mmol/L, chloride 105 mmol/L, and CO2 content 28 mmol/L. His BUN is 58 and his creatinine 5.92. His blood sugar is 149. His serum calcium is 8.7, his phosphate 5.4, his serum magnesium 2.1. Imaging studies from yesterday showed a chest x-ray demonstrating cardiomegaly with minimal pulmonary vascular congestion. He has a trace left pleural effusion. He has evidence of bibasilar atelectasis. An ultrasound of his vascular access in the left arm shows a patent right subclavian vein to the left cephalic vein bypass graft. There is thrombus within the right internal jugular vein. There is a left mid upper arm brachiocephalic AV fistula with some stenosis at the anastomotic site and elevated velocities. Nonetheless, it appears to be patent by ultrasound. ASSESSMENT: Mr. Morrow is an obviously chronically ill gentleman with longstanding issues of diabetes and hypertension as well as chronic renal failure, atrial fibrillation, and generalized ASCVD. His mental status has been slowly deteriorating in general, although he is alert and somewhat oriented today. He now was admitted with bacteremia and the changes consistent with a sepsis syndrome based on his worsening confusion at the time of his admission as well as his low blood pressure and rapid breathing. He is a level 5 DNR. The immediate decisions that need to be made include whether or not to proceed with hemodialysis. I would certainly continue if the family wishes. However, if there is difficulty cannulating his fistula, it will be extraordinarily difficult to place another vascular access. I had previously discussed with the family the idea of discontinuing dialysis and keeping the patient comfortable with a next severe event. This certainly qualifies for that, although he has responded to IV antibiotics. Given the chronic issues that he faces, however, I would not be surprised to see another similar episode occur in the not too distant future even if he recovers from this one. That is based on the open wounds that he has on his legs and his generalized vascular disease. RECOMMENDATIONS: Continue for now. That would include vitamin K for his prolonged prothrombin time. Once he gets back into a therapeutic range, would continue with his warfarin. We would obviously continue with his antibiotics for now. I will try to contact the family today to discuss with him their thoughts regard to hemodialysis. I will be back in contact with Dr. Aguilar and Dr. Ty later this afternoon to discuss further plans with him after I speak with the family. Dr. Ty is on-call for nephrology this weekend.
[2018-07-22] MEDS: CALCIUM ACETATE 667 MG CAP PO SCH (17:33)
[2018-07-22] MEDS: ALLOPURINOL 300 MG TAB PO SCH (21:14)
[2018-07-22] MEDS: PANTOprazole 40 MG TAB PO SCH (21:14)
[2018-07-22] MEDS: ATORVASTATIN 40 MG TAB PO SCH (21:14)
[2018-07-22] MEDS: TRAVOPROST Z 0.004% OPH SOLN 2.5 ML BTL OPB SCH (21:14)
[2018-07-23] MEDS: LEVOTHYROXINE SODIUM 175 MCG TABLET PO SCH (06:24)
[2018-07-23 06:26] LABS: INR 1.7 (0.9-1.1); Prothrombin Time 17.1 Seconds (9.0-12.0)
[2018-07-23 06:50] LABS: BUN Creatinine Ratio 10.5 (10-20); Calcium 8.2 mg/dl (8.5-10.1); Creatinine Clr Calc Pharmacy 8.1 ml/min; Est GFR (African American) 8.1; Magnesium 2.1 mg/dl (1.8-2.4); Phosphorus 5.6 mg/dl (2.5-4.9); Potassium 4.5 mmol/L (3.5-5.1)
[2018-07-23] MEDS ORDERED: SODIUM CHLORIDE 0.9% 1000ML 1,000 ML IV PRN (07:00)
[2018-07-23] MEDS ORDERED: cefTRIAXone SODIUM 1,000 MG in DEXTROSE 5% 50 ML IV SCH (09:00)
[2018-07-23] MEDS: INSULIN ASPART 100 UNITS/ML 3 ML PEN SC SCH ×4 (09:14→22:15)
[2018-07-23] MEDS: CARVEDILOL 6.25 MG TAB PO SCH ×2 (10:22→22:15)
[2018-07-23] MEDS: CALCITRIOL 0.25 MCG CAPSULE PO SCH (10:28)
[2018-07-23] MEDS: ACETAMINOPHEN 500 MG TAB PO SCH ×3 (10:28→22:16)
[2018-07-23] MEDS: ASCORBIC ACID 500 MG TAB PO SCH (10:29)
--- NOTE | 2018-07-23 11:36 | Nephrology Progress Note ---
Date of Service July 23, 2018 Assessment & Plan (1) Altered mental status: Plan of care was discussed in detail with the family including the patient's son (Brandon) and daughter (Rita). They expressed understanding. Mr. Morrow does not demonstrate adequate comprehension. (2) ESRD (end stage renal disease): Unfortunately, the patient's LUE could not be accessed for dialysis today. I explained the situation to the family. There are limited options at this time. This was discussed with Dr. Ramirez and Dr. Dia. Without available access, we will not be able to proceed with hemodialysis. The patient's family is not interested in any additional procedures to secure dialysis access at this time. The patient's life expectancy is very limited at this time and due to severe infection and multiple medical co morbidities goals of care are palliative at this time. (3) Ischemic cardiomyopathy: (4) Goals of care, counseling/discussion: Greater than 40 minutes was spent with the patient's family today in counseling and coordination of care. They are discussing options for management moving forward and asking about local hospice agencies. (5) Sacral decubitus ulcer: (6) Bacteremia: E coli bacteremia Prognosis is poor Subjective No acute events overnight. Afebrile. Alphonse is not oriented to place. His memory remains very poor. He continues to have pain in his legs when moving. He denies dyspnea. Review of systems was limited due to mental status. We were not able to cannulate the left upper extremity AVF for hemodialysis today. Alphonse was resistant. The arm is swollen. Review of Systems Unobtainable due to mental health condition Physical Exam Vital Signs (Past 24 Hours): Last Vital Signs Temp 36.9 C 07/23/18 08:00 Pulse 87 07/23/18 08:00 Resp 22 07/23/18 08:00 BP 99/65 L 07/23/18 08:00 Pulse Ox 94 07/23/18 08:00 Constitutional: + cachectic and + frail appearing Eyes: + anicteric sclerae ENMT: Mouth: + dry oral mucous membranes, + dentures and + poor dentition Neck: trachea midline Respiratory: normal respiratory effort Auscultation: lungs clear to auscultation bilaterally and + rales Cardiovascular: Rate/Rhythm: regular rate Heart Sounds: normal S1, normal S2 and + murmur Extremities: + AV fistula Gastrointestinal (Abdomen): Inspection/Auscultation: abdomen normal to inspection Percussion/Palpation: abdomen soft Musculoskeletal: no cyanosis or clubbing, extremities motor strength 5/5 Skin: no rashes, warm and dry + turgor decreased Neurologic: awake and + confused Results & Data Laboratory Results Laboratory Results - last 24 hr 07/22/18 07/22/18 07/22/18 11:35 16:05 20:30 PT INR Sodium Potassium Chloride Carbon Dioxide Anion Gap BUN Creatinine Est Cr Clr Drug Dosing Est GFR ( Amer) Est GFR (Non-Af Amer) BUN/Creatinine Ratio Glucose POC Glucose 133 H 122 H 170 H Calcium Phosphorus Magnesium 07/23/18 07/23/18 07/23/18 05:43 05:43 07:45 PT 17.1 H INR 1.7 H Sodium 142 Potassium 4.5 Chloride 105 Carbon Dioxide 26 Anion Gap 11.0 BUN 69 H Creatinine 6.60 H* D Est Cr Clr Drug Dosing 8.1 Est GFR ( Amer) 8.1 Est GFR (Non-Af Amer) 7.0 BUN/Creatinine Ratio 10.5 Glucose 116 H POC Glucose 117 H Calcium 8.2 L Phosphorus 5.6 H Magnesium 2.1 (1) Altered mental status Altered mental status type: unspecified Qualified Code(s): R41.82 - Altered mental status, unspecified
--- NOTE | 2018-07-23 17:10 | Hospitalist Progress Note ---
Date of Service July 23, 2018 Assessment & Plan (1) Bacteremia: * Recent UTI with E. coli * Patient admitted with E. coli bacteremia and initially started on Zosyn * Changed to ceftriaxone secondary to sensitivities * Patient currently afebrile but continues with leukocytosis * Continue treatment with ceftriaxone pending disposition (2) Metabolic encephalopathy: * Most likely secondary to acute infection end-stage renal disease * Patient continues to be disoriented * Family discussing options for disposition including hospice * Currently unable to provide access for hemodialysis * Family does not want any further intervention for even a temporary dialysis cath * Continue to monitor * CT scan of the head is negative for acute abnormalities (3) ESRD (end stage renal disease): * Dialysis catheter is not functioning * Family refusing temporary dialysis cath * Follows with Dr. Ramirez * Seen by Dr. Ty today * Family discussing options for hospice (4) Sacral decubitus ulcer: * Referred here from the wound care clinic * Wound care is consulted and following * Continue care of ulcer per wound care * Receiving ceftriaxone for E. coli bacteremia * Continue to monitor (5) A-fib: * Patient chronically anticoagulated with warfarin and presented with supratherapeutic INR * INR is now down to 1.7 * Will resume warfarin and follow INR (6) Electrolyte imbalance: * Unfortunate this is been managed with hemodialysis and dialysis cath is now clogged * Continue supportive care * Palliative care has been consulted * Family is discussing disposition (7) DVT prophylaxis: * Patient is chronically anticoagulated with warfarin for atrial fibrillation * Warfarin is being restarted today -INR 1.7 * Patient not able to ambulate * Continue to monitor DISPOSITION: Patient with end-stage disease and unable to receive hemodialysis due to blocked catheter. Patient moved to E. Family discussing disposition which may include hospice. Continue current treatment plan pending final disposition. Please refer to Dr. Rangel's addendum for further recommendations. Supervising Physician Co-Signing Physician Notes chart reviewed, case discussed w Sree Rangel PAC, agree w plan as above. Subjective Attending: Dr. Wright An 83-year-old male admitted from [facility] on 07/20/2018 for altered mental status and lactic acidosis. Patient was found to have a UTI previously and developed a bacteremia with E. coli resistant to levofloxacin and ciprofloxacin and started on Zosyn and now on ceftriaxone. Patient continues to be oriented and while he can give me his name cannot provide any additional information and has no comprehension of discussion. Unable to get adequate review of systems although patient denies any pain. Physical Exam Vital Signs (Past 24 Hours): Last Vital Signs Temp 36.6 C 07/23/18 14:44 Pulse 107 H 07/23/18 14:44 Resp 28 H 07/23/18 12:00 BP 90/56 L 07/23/18 14:44 Pulse Ox 90 07/23/18 14:44 Physical Exam: GENERAL : No acute distress but disoriented and unable to provide ROS. Appears ill EYES: No icterus, gaze conjugate NOSE: No evidence of epistaxis MOUTH: No lesions or candidiasis. Mucosa dry NECK: Supple LUNGS: Bibasilar rales with some upper field rhonchi HEART: Regular, rate controlled. No appreciation of ectopy ABDOMEN: Soft, NT, ND, BS Present EXTREMITIES: No LE edema, pedal pulses intact NEURO: Awake but confused. Results & Data Laboratory Results Abnormal lab results 07/22/18 07/23/18 07/23/18 Range/Units 20:30 05:43 05:43 PT 17.1 H (9.0-12.0) Seconds INR 1.7 H (0.9-1.1) BUN 69 H (7-18) mg/dl Creatinine 6.60 H* D (0.6-1.4) mg/dl Glucose 116 H (70-99) mg/dl POC Glucose 170 H (70-99) Calcium 8.2 L (8.5-10.1) mg/dl Phosphorus 5.6 H (2.5-4.9) mg/dl 07/23/18 07/23/18 07/23/18 Range/Units 07:45 11:47 16:21 PT (9.0-12.0) Seconds INR (0.9-1.1) BUN (7-18) mg/dl Creatinine (0.6-1.4) mg/dl Glucose (70-99) mg/dl POC Glucose 117 H 130 H 130 H (70-99) Calcium (8.5-10.1) mg/dl Phosphorus (2.5-4.9) mg/dl Diagnostic Findings XR chest 1V portable HISTORY: 83 years-old Male Sepsis acute sepsis COMPARISON: Chest radiograph 05/13/2018 TECHNIQUE: Portable AP view of the chest FINDINGS: Cardiac silhouette is enlarged, unchanged. Stable positioning of the left subclavian pacer/AICD. Right internal jugular central venous catheter appears unchanged. Calcification of the thoracic aorta. Trace left pleural effusion. No pneumothorax. Pulmonary vascular congestion with bilateral interstitial coarsening. Left greater than right bibasilar opacities. Degenerative changes of the shoulders and spine. Remote appearing right proximal humeral fracture. IMPRESSION: 1. Cardiomegaly with mild pulmonary edema. 2. Trace left pleural effusion with left greater than right bibasilar opacities suggestive of atelectasis. Pneumonitis considered less likely. Electronically signed by: Chang Aguayo M.D. 07/20/2018 10:32 AM [facility], [place] [phone] Ultrasound Report Patient: NANNETTE STOUT Date: 07/20/18 MR#: [id number]: 921 HONEY Acct ID:[id number]: C/O PJ STOUT Date: 1935[facility] Zip: [place] [address] Age: 83Location: 2N Sex: M Room/Bed: [facility] Att Phy: Quentin Aguilar MD, PhDDiagnosis: AMS Kimber Phy: Vivek Ramirez MDService Date: 07/21/18 Fam Phy: Interpreting Phy: Chris Guthrie MD Admit Phy: Iris Nelson D.O. Ordering Phy: Baldev Ty DO cc: ~ hemodialysis access (left upper arm AV fistula evaluation) CLINICAL HISTORY: Clinically abnormal AV fistula COMPARISON STUDY: No previous studies for comparison. FINDINGS: Grayscale color flow and spectral waveform analysis was performed. There is a patent right subclavian vein to left cephalic vein bypass graft. There is thrombus within the right internal jugular vein. There is a left mid upper arm brachiocephalic AV fistula. There is a stenosis at the anastomotic site with elevated velocities measuring 516 cm/s IMPRESSION: 1. Stenosis at the anastomotic site of the patient's left mid upper arm brachiocephalic AV fistula 2. Patent right subclavian to left cephalic vein bypass graft 3. Right internal jugular vein thrombus Electronically signed by: Chris Guthrie M.D. 07/21/2018 2:44 PM Dictated: 07/21/18 1437 Transcribed: 07/21/18 [address] [facility], [place] [phone] CT Scan Report Patient: NANNETTE STOUT Date: 07/20/18 MR#: [id number]: 921 HONEY Acct ID:[id number]: C/O PJ STOUT Date: 1935[facility] Zip: [place] [address] Age: 83Location: ED Sex: M Room/Bed: Att Phy: Diagnosis: LETHARGIC Kimber Phy: Vivek Ramirez MDService Date: 07/20/18 Fam Phy: Interpreting Phy: Jorge Pardo MD Admit Phy: Ordering Phy: Zaki Almeida DO cc: ~ CT OF THE HEAD WITHOUT CONTRAST CLINICAL HISTORY: Altered mental status. COMPARISON STUDY: Head CT May 13, 2018. CT DOSE: 537.48 mGy.cm TECHNIQUE: Helical axial images of the head were obtained without IV contrast. Automated exposure control was utilized for the study. A dose lowering technique was utilized adhering to the principles of ALARA. FINDINGS: No acute intracranial hemorrhage, midline shift or mass effect is present. 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 This is unchanged. Ventricular system is stable. Basilar cisterns are patent. There are no extra- axial collections. White hypodensities suggest moderate small vessel disease. There is extensive intracranial vascular calcification. There are no findings to suggest acute dural sinus thrombosis or acute territorial infarct. There are no significant calvarial abnormalities. There is mild sinus mucosal thickening. IMPRESSION: No acute intracranial findings. Electronically signed by: Jorge Pardo M.D. 07/20/2018 11:09 AM Dictated: 07/20/18 1107 Transcribed: 07/20/18 1107 (1) A-fib Atrial fibrillation type: persistent Qualified Code(s): I48.1 - Persistent atrial fibrillation
[2018-07-23] MEDS: CALCIUM ACETATE 667 MG CAP PO SCH (17:23)
[2018-07-23] MEDS ORDERED: WARFARIN SOD 1 MG TAB PO SCH (17:30)
[2018-07-23] MEDS: ATORVASTATIN 40 MG TAB PO SCH (22:15)
[2018-07-23] MEDS: PANTOprazole 40 MG TAB PO SCH (22:16)
[2018-07-23] MEDS: ALLOPURINOL 300 MG TAB PO SCH (22:16)
[2018-07-23] MEDS: TRAVOPROST Z 0.004% OPH SOLN 2.5 ML BTL OPB SCH (22:16)
--- NOTE | 2018-08-01 08:44 | Consultation ---
Date of Consultation August 01, 2018 History of Present Illness Attending Physician: Mustapha Wright DO History of Present Illness No consult done. Patient made comfort care by his family and didnt want anything done. Allergies Allergy/AdvReac Type Severity Reaction Status Date / Time No Known Allergies Allergy Verified 07/20/18 08:50 Home Medications Home Medications Medication Instructions Recorded Confirmed Type allopurinol 150 mg PO QPM 02/07/18 07/20/18 History amoxicillin 4 cap PO DIRECTED PRN 02/07/18 07/20/18 History aspirin 81 mg PO QPM 02/07/18 07/20/18 History atorvastatin 80 mg PO QPM 02/07/18 07/20/18 History calcitriol 0.5 mcg PO 3XWK 02/07/18 07/20/18 History calcium acetate 667 mg PO QDD 02/07/18 07/20/18 History carvedilol 6.25 mg PO BID17 02/07/18 07/20/18 History levothyroxine 175 mcg PO QAM 02/07/18 07/20/18 History pantoprazole 40 mg PO HS 02/07/18 07/20/18 History multivitamin 1 tab PO QAM 03/14/18 07/20/18 History ondansetron HCl [Zofran] 4 mg PO Q6 PRN 03/14/18 07/20/18 History acetaminophen 500 mg tablet 1,000 mg PO TID tab 04/15/18 07/20/18 History amino acid-protein hydr-whey prot 30 ml PO BID17 ml 04/15/18 07/20/18 History 15 gram-100 kcal/30 mL liquid packet ascorbic acid (vitamin C) 500 mg 500 mg PO QAM 04/15/18 07/20/18 History tablet insulin aspart U- 100 100 unit/mL See Rx Instructions SQ BID ml 04/15/18 07/20/18 History subcutaneous solution oxycodone 5 mg capsule 5 mg PO Q4H PRN cap 04/15/18 07/20/18 History polyethylene glycol 3350 17 17 gm PO DAILY PRN gm 04/15/18 07/20/18 History gram/dose oral powder warfarin 1 mg tablet 1 mg PO 5XWK 04/15/18 07/20/18 History warfarin 1 mg tablet 2 mg PO 2XWK tab 04/15/18 07/20/18 History zinc sulfate 220 mg tablet 220 mg PO QAM tab 04/15/18 07/20/18 History cadexomer iodine [Iodosorb] 1 applic TOPICAL QAM 05/13/18 07/20/18 History travoprost [Travatan Z] 1 drp OPB HS 05/13/18 07/20/18 History vit C-vit H-dqyuzp-pzur-lutein 1 cap PO QAM 05/13/18 07/20/18 History [PreserVision Lutein] bisacodyl [Dulcolax (bisacodyl)] 10 mg CA DAILY PRN 05/15/18 07/20/18 History food supplement, lactose-reduced See Rx Instructions PO TID ml 06/20/18 07/20/18 History oral liquid ciprofloxacin 500 mg tablet 500 mg PO DAILY tab 06/24/18 07/20/18 History ciprofloxacin 500 mg tablet 500 mg PO DAILY #14 tab 06/24/18 07/20/18 Rx Patient History Medical History Fistula Lethargy (Acute) Confusion (Acute) ESRD (end stage renal disease) (Chronic) Hemodialysis T/TR/S Chronic CHF (Chronic) HTN (hypertension) (Chronic) Ischemic cardiomyopathy (Chronic) 'presumed ischemic based on noninvasive cardiac testing' per cardio 01/10/18 Cellulitis of lower leg (Chronic) Pneumonia (Chronic) A-fib (Chronic) PERMANENT, ON COUMADIN Constipation (Chronic) Leukocytosis (Chronic) Anemia (Chronic) Occlusion of left subclavian artery (Chronic) Sepsis (Chronic) Altered mental status (Chronic) Diabetes (Chronic) TYPE II Hypothyroidism (Chronic) Gout Glaucoma S/P ORIF (open reduction internal fixation) fracture r arm GERD (gastroesophageal reflux disease) Carotid artery stenosis PVD (peripheral vascular disease) (Chronic) CAD (coronary artery disease) Pleural effusion Small R sided, noted on 01/12 CT Surgical History Hip fracture requiring operative repair S/P arteriovenous (AV) fistula creation L AC vein R wrist Status post implantation of automatic cardioverter/defibrillator (AICD) Inititially dual-chamber placed 08/22/09, replaced with single-chamber ICD 08/27/15 due to HOLLY AV fistula occlusion REQUIRING L ARM AVF TO R SUBCLAVIAN VEIN BYPASS H/O excision of Zenker's diverticulum Family History Other Family history non-contributory Social History Communication Ability: Effective Beliefs That Will Affect Care: None marital status: / Current Living Situation: Snf Current Living Situation Comment: Patient is from the [facility] Feels Safe at Home: Yes Smoking Status: Never smoker Hx Alcohol Use: No Hx Substance Use: No Physical Exam Vital Signs (Past 24 Hours): Last Vital Signs Temp 36.6 C 07/23/18 14:44 Pulse 107 H 07/23/18 14:44 Resp 28 H 07/23/18 12:00 BP 90/56 L 07/23/18 14:44 Pulse Ox 90 07/23/18 14:44
--- NOTE | 2018-08-01 09:29 | Death Summary ---
Date of Service July 23, 2018 Pronouncement Note Date and Time of Date of : 07/23/18 Time of : 20:34 PCOD Preliminary cause of : Bacteremia due to Escherichia coli Contributing Factors (1) Bacteremia: Contributing factors: Secondary to e. coli resistent to fluorquinolones and Ampicillin (2) Metabolic encephalopathy: (3) ESRD (end stage renal disease): Contributing factors: Dialysis catheter not functional. Family opted not to have additional lines placed. (4) Sacral decubitus ulcer: (5) A-fib: (6) Electrolyte imbalance: Contributing factors: Dialysis catheter not functional. Unable to correct electrolytes (7) DVT prophylaxis: Summary Additional details: 83-year-old man admitted for altered mental status and found to have bacteremia with E. coli. Patient in end-stage renal disease patient followed by Dr. Ramirez. The patient's dialysis catheter was found to not be functional. Family opted not to have further lines placed for dialysis and opted for palliative care. Patient had electrolyte imbalance which had been managed with dialysis. Due to the poorly functioning dialysis catheter, patient was unable to have adequate management of electrolytes. Patient seen by the palliative care team and after discussion with family patient was changed to comfort care and moved to [facility] for further management. Patient at 20:34 the evening of July 23, 2018. Patient was pronounced by Dr. Pappas. Please refer to progress note from today under separate cover for complete care plan. Additional Data Confirmation of : no pulse, no respirations and no heart sounds Attending physician: Mustapha Wright, DO Was code activated?: No Autopsy requested?: No film examiner notified?: No Organ bank notified?: No Advance directives: No
== END 2018-07-23 20:20 | disposition expired | DRG 871 ==
LOC: 2N 08:54 → ED 08:54 → OBSVTOIN 14:24 → SUATTDRO 14:24 → 2N 14:50 → 4E 07-23 14:36
DX: X58.XXXD Exposure to other specified factors, subsequent encounter; L89.512 Pressure ulcer of right ankle, stage 2; I25.10 Atherosclerotic heart disease of native coronary artery without angina pectoris; A41.51 Sepsis due to Escherichia coli [E. coli]; Z66 Do not resuscitate; T36.8X5A Adverse effect of other systemic antibiotics, initial encounter; E87.2 Acidosis; S82.301G Unspecified fracture of lower end of right tibia, subsequent encounter for closed fracture with delayed healing; E11.22 Type 2 diabetes mellitus with diabetic chronic kidney disease; G93.41 Metabolic encephalopathy; Z79.01 Long term (current) use of anticoagulants; L89.622 Pressure ulcer of left heel, stage 2; N18.6 End stage renal disease; Z79.82 Long term (current) use of aspirin; I25.5 Ischemic cardiomyopathy; Z79.899 Other long term (current) drug therapy; Z79.2 Long term (current) use of antibiotics; I48.1 Persistent atrial fibrillation; Z79.4 Long term (current) use of insulin; R79.89 Other specified abnormal findings of blood chemistry; E11.65 Type 2 diabetes mellitus with hyperglycemia; F03.90 Unspecified dementia, unspecified severity, without behavioral disturbance, psychotic disturbance, mood disturbance, and anxiety; E87.5 Hyperkalemia; D63.1 Anemia in chronic kidney disease; Z99.2 Dependence on renal dialysis; L89.153 Pressure ulcer of sacral region, stage 3; T82.858A Stenosis of other vascular prosthetic devices, implants and grafts, initial encounter; L89.892 Pressure ulcer of other site, stage 2; M10.9 Gout, unspecified; Z95.810 Presence of automatic (implantable) cardiac defibrillator; Z79.1 Long term (current) use of non-steroidal anti-inflammatories (NSAID); I50.22 Chronic systolic (congestive) heart failure; R79.1 Abnormal coagulation profile; I13.2 Hypertensive heart and chronic kidney disease with heart failure and with stage 5 chronic kidney disease, or end stage renal disease; K21.9 Gastro-esophageal reflux disease without esophagitis; E03.9 Hypothyroidism, unspecified; D53.9 Nutritional anemia, unspecified; N39.0 Urinary tract infection, site not specified